=== PATIENT | male | born 1935 | race Caucasian/White ===

== ENCOUNTER → 2020-09-01 15:58 | Outpatient (CLI) | payer MEDICARE, SELFPAY ==
[2020-09-01 18:01] LABS: Amphetamine Urine VISTA NEGATIVE (<1000 ng/mL); Barbiturate Urine VISTA NEGATIVE (< 200 ng/mL); Benzodiazepine Urine VISTA NEGATIVE (< 200 ng/mL); Cocaine Urine VISTA NEGATIVE (< 300 ng/mL); Ecstacy Urine VISTA NEGATIVE (< 500 ng/mL); Methadone Urine VISTA NEGATIVE (< 300 ng/mL); PCP Urine VISTA NEGATIVE (< 25 ng/mL); THC Urine VISTA NEGATIVE (< 50 ng/mL); Vista UDS pH Range 6
== END ==
PROVIDERS: PCP Anesthesiology Pain Medicine; Referring Provider Anesthesiology Pain Medicine; Visit Provider Anesthesiology Pain Medicine
DX: F11.20 Opioid dependence, uncomplicated (principal)
CPT/HCPCS: 80307

== ENCOUNTER → 2021-11-27 | Outpatient (CLI) | payer MEDICARE, SELFPAY ==
[2021-11-27 08:45] LABS: Amphetamine Urine VISTA NEGATIVE (<1000 ng/mL); Barbiturate Urine VISTA NEGATIVE (< 200 ng/mL); Benzodiazepine Urine VISTA NEGATIVE (< 200 ng/mL); Cocaine Urine VISTA NEGATIVE (< 300 ng/mL); Ecstacy Urine VISTA NEGATIVE (< 500 ng/mL); Methadone Urine VISTA NEGATIVE (< 300 ng/mL); PCP Urine VISTA NEGATIVE (< 25 ng/mL); THC Urine VISTA NEGATIVE (< 50 ng/mL); Vista UDS pH Range 5
== END | disposition home or self-care (01) ==
LOC: LAB 08:09
PROVIDERS: Referring Provider Anesthesiology Pain Medicine; Visit Provider Anesthesiology Pain Medicine
DX: F11.20 Opioid dependence, uncomplicated (principal)
CPT/HCPCS: 80307

== ENCOUNTER 2022-01-04 11:46 | Emergency (ER) | payer MEDICARE, SELFPAY ==
[2022-01-04 11:47] VITALS: BP 131/82; PULSE 97; RESP 18; TEMP 36.8; O2SAT 93; BMI 25.9
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
== END 2022-01-04 14:07 | disposition home or self-care (01) ==
PROVIDERS: Emergency Provider Emergency Medicine; PCP Family Medicine; Visit Provider Emergency Medicine
DX: M54.9 Dorsalgia, unspecified (principal); G89.29 Other chronic pain; G47.00 Insomnia, unspecified; F17.220 Nicotine dependence, chewing tobacco, uncomplicated
CPT/HCPCS: 99284

== ENCOUNTER 2023-01-14 12:13 | Outpatient (CLI) | payer MEDICARE, SELFPAY ==
--- NOTE | 2023-01-14 12:35 | RAD_ITS ---
INDICATION: FALL EXAMINATION/TECHNIQUE: X-RAY - XR Sacrum/Coccyx Min 2 Views COMPARISON: No prior examinations are available for comparison. FINDINGS: SACRUM/COCCYX: No displaced fracture, destructive or sclerotic lesions. Note that overlapping bowel shadows may however obscure fine detail in the frontal view. Deformity of the right inferior pubic ramus likely due to old injury. SACRO-ILIAC JOINTS: The articular structures are essentially unremarkable. 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 RAD/Sacrum-Coccyx min 2 Views IMPRESSION: No evidence of acute fracture. Electronically Signed: Jakub Kam MD at 10:36 EDT ,
--- NOTE | 2023-01-14 12:35 | RAD_ITS ---
INDICATION: FALL EXAMINATION/TECHNIQUE: X-RAY - XR Spine Lumbar Min 4 Views COMPARISON: No prior examinations are available for comparison. FINDINGS: VERTEBRAE: Preserved vertebral body height. No evidence of acute compression fracture deformity. No spondylolisthesis. Straightening of the lumbar spine. Mild levoscoliosis. DISCS: Severe disc space narrowing at multiple levels extending from L1-L2 to L5-S1. Anterior degenerative osteophyte formations. Small posterior degenerative spurs. The pedicles appear intact. INCLUDED ABDOMEN: Atherosclerotic calcifications of the abdominal aorta. 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 RAD/L/S Spine Min 4 Views IMPRESSION: 1. Multilevel degenerative changes. 2. No evidence of acute fracture. Electronically Signed: Jakub Kam MD at 10:34 EDT ,
== END 2023-01-14 23:59 | disposition home or self-care (01) ==
LOC: RAD 12:16
PROVIDERS: PCP Family Medicine; Visit Provider Anesthesiology Pain Medicine
DX: M96.1 Postlaminectomy syndrome, not elsewhere classified (principal); W19.XXXA Unspecified fall, initial encounter
CPT/HCPCS: 72110; 72220

== ENCOUNTER 2024-10-15 11:13 | Observation (INO) | payer MEDICARE, SELFPAY ==
[2024-10-15] VITALS (7 sets, daily range): BP systolic 143–168; BP diastolic 77–100; PULSE 67–77; RESP 16–19; TEMP 36.4–36.8; O2SAT 95–99; BMI 29.0; BMI 28.0
--- NOTE | 2024-10-15 11:49 | EDS_ITS ---
HPI <BLAS Cuellar - Last Filed: 10/15/24 15:09> History of Present Illness Chief Complaint: General Illness Narrative Narrative: Patient resenting today after family had concerns that he would not be able to take care of himself while his is currently here in the ICU. She is his primary caregiver, he she was admitted to the hospital yesterday. His granddaughter felt that he should be placed for failure to thrive due to concerns that he would not be able to feed or take care of himself. Patient reports that he last ate yesterday afternoon but has not had time to eat yet today. He does not have any acute complaints. He is alert and oriented x 4. He reports that he is not wanting to be placed in a facility. [facility] <BLAS Cuellar - Last Filed: 10/15/24 15:09> [facility] Medical History History of seizure disorder Gout Drooping eyelid Home Medications ?Medication ?Instructions ?Recorded ?Last Taken ?Type hydroxyzine pamoate 25 mg capsule 50 mg (2 x 25 mg) PO QHS PRN 01/04/22 Unknown Rx insomnia #30 CAPSULES amitriptyline 25 mg tablet 25 mg PO DAILY 10/15/24 Unk nown History insulin glargine 100 unit/mL (3 unit subcut 10/15/24 U nknown History mL) subcutaneous pen (Lantus Solostar U-100 Insulin) levetiracetam 500 mg tablet 500 mg PO BID 10/15/24 Unk nown History oxycodone myristate 18 mg capsule 18 mg PO BID 5 Unknown History sprinkle extended release 12hr(DON'T CRUSH) (Xtampza ER) oxymetazoline 0.05 % nasal spray 2 spray intranasal BI D 10/15/24 Unknown History (12 Hour Nasal Relief [place]) rivaroxaban 20 mg tablet (Xarelto) 20 mg PO DAILY 09/17 08/11 Unknown History rosuvastatin 10 mg tablet 10 mg PO QHS 10/15/24 Unknow n History sitagliptin phosphate 100 mg 100 mg PO DAILY 10/15/24 Unknown History tablet (Januvia) tamsulosin 0.4 mg capsule 0.4 mg PO DAILY 10/15/24 Unk nown History Allergy/AdvReac Type Severity Reaction Status Date / Time Penicillins Allergy Mild Hives Verified 02/16/21 14:55 hydromorphone (From Dilaudid) Allergy Hallucinati Verified 02/16/21 14:55 ons ketorolac (From Toradol) Allergy Itching Verified 02/16/21 14:55 Family History Father Tuberculosis Surgical History History of back surgery Hx of laminectomy Social History household members: spouse housing: house Smoking Status: Never smoker Smokeless tobacco user: chewing tobacco alcohol intake: never what type of physical activity do you participate in: none do you feel safe at home: Yes ROS <BLAS Cuellar - Last Filed: 10/15/24 15:09> ROS ED Constitutional Constitutional ED: Denies chills, fever(s) or sweats Cardiovascular Cardiovascular: Denies chest pain Respiratory/Chest Respiratory/Chest: Denies cough or dyspnea Gastrointestinal Gastrointestinal: Denies abdominal pain, nausea or vomiting Genitourinary Genitourinary ED: Denies dysuria, hematuria or urinary urgency Musculoskeletal Musculoskeletal: Denies arthralgias or myalgias Integumentary Denies rash Neurologic Neurologic: Denies weakness EXAM <BLAS Cuellar - Last Filed: 10/15/24 15:09> Physical Exam Const Vital Signs: 10/15/24 11:14 10/15/24 11:19 10/15/24 13:25 Temperature 97.5 F L Temperature Source Oral Pulse Rate 67 73 Respiratory Rate 16 16 Respiratory Effort Normal Non-Labored Respiratory Pattern Normal Blood Pressure 162/87 H 156/78 H Blood Pressure Mean 112 104 Pulse Ox 95 97 Oxygen Delivery Method Room Air Room Air 10/15/24 14:55 Temperature 98.3 F Temperature Source Pulse Rate 74 Respiratory Rate 19 H Respiratory Effort Respiratory Pattern Blood Pressure 165/79 H Blood Pressure Mean 107 Pulse Ox 99 Oxygen Delivery Method Positive well nourished, well developed and no apparent distress General Appearance ED: well developed HEENT Reports normocephalic and head/scalp atraumatic Mouth ED: Yes moist mucous membranes normal Eyes PERRL and EOMs intact bilaterally Neck full ROM and supple Chest Wall inspection of chest normal Resp normal respiratory effort and clear to auscultation bilaterally Cardio regular rate and regular rhythm GI soft to palpation, non-tender, non-distended and no masses Back/Spine normal ROM and normal to inspection Extremity normal to inspection and full ROM Neuro oriented x3, CN's II-XII intact bilaterally, moves all extremities, no focal motor deficits and no sensory deficits noted Sensorium / Orientation: awake and alert Psych mental status grossly normal and thought process normal Skin no rashes or lesions noted and no wounds <Dr. Aamir Auguste DO - Last Filed: 10/15/24 15:44> Physical Exam Const Vital Signs: 10/15/24 11:14 10/15/24 11:19 10/15/24 13:25 Temperature 97.5 F L Temperature Source Oral Pulse Rate 67 73 Respiratory Rate 16 16 Respiratory Effort Normal Non-Labored Respiratory Pattern Normal Blood Pressure 162/87 H 156/78 H Blood Pressure Mean 112 104 Pulse Ox 95 97 Oxygen Delivery Method Room Air Room Air 10/15/24 14:55 Temperature 98.3 F Temperature Source Pulse Rate 74 Respiratory Rate 19 H Respiratory Effort Respiratory Pattern Blood Pressure 165/79 H Blood Pressure Mean 107 Pulse Ox 99 Oxygen Delivery Method [facility] <BLAS Cuellar - Last Filed: 10/15/24 15:09> [facility] Narrative Medical decision making narrative: Patient presenting today after his granddaughter had concerns for failure to thrive due to his and primary caregiver being admitted to the ICU yesterday. Granddaughter had concerns that he would not be able to administer his diabetes medication properly or cook for himself. He does not have any family nearby that he can depend on to help him. Patient currently has no acute complaints, clinically he is well-appearing, he has unremarkable vital signs. He reports that he is not wanting to be placed in a facility and wants to go home. Glucose was checked here, and is 124. Clinically he does not appear dehydrated. He does have capacity to make this decision, he is not confused. He does not want to be placed. I did get social work involved, they will try to set him up for resources to allow meals to come out to his house and a nurse to come out and help him with his medication until his can come back home. Patient does feel confident that he can make meals for himself and take his me dication. Given he does have the capacity to make this decision, he will be discharged home in stable condition. He understands that he can return at any time. Lab Data Attestation: I reviewed the patient's lab results. Labs: Laboratory Results - last 24 hr 10/15/24 13:19 POC Glucose 124 H <Dr. Aamir Auguste, DO - Last Filed: 10/15/24 15:44> [facility] History & Record Review Discussion w/independent historian: Patient and Family Lab Data Labs: Laboratory Results - last 24 hr 10/15/24 13:19 POC Glucose 124 H Management Discussion w/another healthcare provider: tin worker/Case management Treatment and Re-Evaluation :: I have personally performed a face to face assessment of the patient and have reviewed the ROBY Note. I performed a substantive portion of the visit including all aspects of the following. My raza findings include: History is 89-year-old male was brought to the emergency department by family out of concern for his wellbeing. Patient's was admitted yesterday into the intensive care unit. Family has concerns about his ability to care for himself at home without her as she was a main caregiver. They have concerns that perhaps he is abusing pain medication and whether or not he ate yesterday. Patient states that he cooked eggs and a salad yesterday. Family states that he did not answer the door when they came to get him this morning so they came in to his house and had a hard time waking him up. He said he used when he awoke. Patient states he has access to his medicines. He knows how to get refills. There was a report that [facility]PS was called for him yesterday. Exam is afebrile vital signs are stable. Patient appears well-kept. He is not in any distress. He is alert and oriented x 3. Medical Decison Making patient was in the emergency department and we had social work evaluate him and work intermittently with his family. On my examination I find that the patient does have capacity to make his own decisions and that these are consistent with his values at this time. He is able to communicate and choice of going home as compared to being admitted or placed and he can communicate this clearly to me. He does appear to balance what I am telling him as I expressed the concerns of his family and social work versus what he believes to be true. He is able to verbalize the benefits of going home versus being admitted or transferred. He does not wish to be admitted into the hospital or placed into a skilled or assisted living facility. He states that he is able to care for himself and has a home and does not understand why he would need to leave the home. He is worried that if he is admitted or transferred that he would not be able to see his . He states that he understands that if he gets to a point where he cannot care for himself that he can reach out to family or 911 and get help. I believe his choice is sound. He is able to tell me that 5 years ago he gave up driving because his vision was poor. He knows how to reach his primary care doctor. He does have family that can check on him. I would have social work reach out to [facility] as well as to explore a possible home health care option. Discharge Plan Triage Chief Complaint: General Illness ED Midlevel Provider: Kelsy Castle ED Provider: Aamir Auguste Dx/Rx/DC Orders Clinical Impression: History of diabetes mellitus, type II, Encounter for adult wellness visit Instructions: ED Diabetes- Overview Prescriptions: No Action hydroxyzine pamoate [hydroxyzine pamoate] 25 mg capsule 50 mg PO QHS PRN (Reason: insomnia) Qty: 30 0RF levetiracetam 500 mg tablet 500 mg PO BID oxymetazoline [12 Hour Nasal Relief [place]] 0.05 % spray,non-aerosol 2 spray intranasal BID Xtampza ER 18 mg cap,sprinkl,ER12hr(DONT CRUSH) 18 mg PO BID Rx Instructions: must administer with a meal/food Januvia 100 mg tablet 100 mg PO DAILY amitriptyline 25 mg tablet 25 mg PO DAILY insulin glargine [Lantus Solostar U-100 Insulin] 100 unit/mL (3 mL) insulin pen subcut Patient Comments: unknown dosage tamsulosin 0.4 mg capsule 0.4 mg PO DAILY Xarelto 20 mg tablet 20 mg PO DAILY Rx Instructions: must administer with evening meal rosuvastatin 10 mg tablet 10 mg PO QHS Primary Care Provider: Saulo Miranda Referrals: Saulo Miranda MD [Primary Care Provider] - 5-7 Days Activity Restrictions/Additional Instructions: Follow-up with your PCP. Return for any other concerns. Print Language: Kyrgyz Disposition Disposition: Home, Self Care Capacity <Dr. Aamir Auguste DO - Last Filed: 10/15/24 15:44> Capacity Assessment Tool Patient lacks Decision Making Capacity: unable to understand, reason and deliberate health related choices: No Risk to self and or others?: No Risk of leaving the patient care unit and or hospital?: Yes
[2024-10-15 13:38] LABS: Bedside Glucose 124 mg/dL (74-106)
[2024-10-15] MEDS: Oxymetazoline 0.05% 1 SPRAY SPRAY.BTL 2 SPRAY NASAL (14:46)
[2024-10-15] MEDS: Rivaroxaban 20 MG Tablet PO (14:47)
[2024-10-15] MEDS: LINAGLIPTIN 5 MG TABLET PO (14:48)
[2024-10-15] MEDS: levETIRAcetam 500 MG Tablet PO ×2 (14:49→21:56)
[2024-10-15] MEDS: Amitriptyline 25 MG Tablet PO (14:49)
[2024-10-15] MEDS: Tamsulosin HCl 0.4 MG Capsule PO (14:50)
--- NOTE | 2024-10-15 16:26 | CM.ED ---
Social work Reason for referral: family concerns with patient ability to care for self Referral source: parking meter mechanic Alyssa/Kelsy ODONNELL This SW was approached by parking meter mechanic Alyssa to speak with patient due to concerns of patient's ability to care for self at home alone while patient's , Radha, was admitted to [facility]. This SW read extensive notes in patient's 's chart that ED SW had written regarding patient yesterday prior to entering patient's room. This SW entered patient's room, introducing self and role at [facility]. Patient accepted SW visit, stating not necessarily understanding why patient was present in [facility] ED. Patient stated belief that patient was at [facility] ED to check patient's insulin levels due to patient's being admitted to acute yesterday. Patient stated knowing patient's son, Jim, living in [place] as well as patient's other son, Benedict, visiting almost every day. Patient states knowing patient's granddaughter, Ana, lives in [place]. Patient stated not doing much at home besides sleeping and watching TV and patient confirmed patient's having to help patient with checking patient's blood sugar, providing patient with insulin, and helping with everything. Patient stated not eating anything today, but having a salad and a fish sandwich yesterday. Patient reported adamantly that patient was not being admitted and was not going anywhere except home. Patient was able to state that today was Tuesday and that it was 2024. Patient stated the year when asked the month, though patient stated a few minutes later that it was September, as well as listed out all of the months of the year unprompted, only missing April. Patient was unable to share details of how patient can check patient's blood sugar, though patient stated knowing how to test it due to watching it a lot of times. Patient stated using a walker to get around the house and stated taking the medication that's left by the sink. Patient was unable to share with this SW what medications patient took. This SW asked for permission to call patient's granddaughter, Ana, due to Ana not being on patient's face sheet and patient gave permission. Called Ana ([phone]) and spoke with Ana regarding patient. Ana reported patient's son, Benedict, did not go out to the home last night or this morning to check patient's insulin levels as requested. 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 Ana stated going every Tuesday to patient's home and confirmed that patient had eaten a fish sandwich (from patient's son, Benedict) and a piece of pie yesterday. Ana stated patient has recent falls and there are 4 steps down in every direction so patient would be unable to exit the home safely in an emergency. Ana also stated patient will often take double pain medication and will also steal patient's 's medication. Ana arrived at [facility] ED with patient's home medication which was provided to Lynn CEJA to place in patient's chart. Ana spoke with patient prior to leaving to reportedly clean up some at patient's home. Prior to leaving, Ana stated needing to return to [place] this evening and not being able to care for patient if patient returned home. Patient's blood sugar was at 124 when Lynn CEJA checked. Patient remained adamant that patient was not agreeable to admission, even overnight. This SW reentered patient's room, stating concerns that SW and patient's granddaughter had due to patient's being admitted and likely transitioning to a SNF for rehab prior to returning home. Patient became upset, stating SW was wasting breath by expressing concerns with patient returning home. SW asked patient if patient knew consequences of not taking the right medication, taking too much of a medication, or not checking insulin correctly. Patient stated knowing this could be deadly and patient insisted on returning home regardless. Patient stated refusing to be admitted and denied any needs. Concerns were discussed with Dr. Auguste and Kelsy ODONNELL. Dr. Auguste completed a capacity assessment and talked with patient further with eventually determining that patient was cognitively able to make patient's own decisions. Patient showed ability to walk with a walker as well prior to the decision being made to discharge patient home. This SW called Ana to let Ana know of patient's discharge and initially had to leave a voicemail requesting a return call. Ana answered SW call a short time later and expressed further concerns with patient returning home alone. Ana stated patient would not be safe returning home and needed to show ED staff how patient could check own blood sugar. Ana was informed that this would not be possible due to not having patient's home system available for patient to show ED staff. Ana stated being almost back to [place] already and needing to see if patient's son, Benedict, could come cone picker patient. nAa stated inability to reach Benedict at all today. This SW called Benedict ([phone]) and introduced self and role at [facility]. Benedict stated not realizing patient was in [facility] ED and asked for details on patient's condition. Benedict stated that Benedict checked patient's blood sugar 3 times yesterday and it was fine. Benedict confirmed ability to check on patient due to living a mile and a half away from patient. Benedict also stated that Benedict had attempted to call Ana twice today and she never got back to me. This SW hung up with Benedict after confirming Benedict could come cone picker patient and called Ana back to confirm. Ana stated further frustration with the situation and stated having called [facility] Nursing Business Analytics Analyst Dang Hernandez in between SW calls. [facility] Nursing Business Analytics Analyst Dang talked with this SW who shared details above explaining why the decision was made to send patient home. This SW submitted [facility] [employer] [facility] referral online, called [facility] and sent email to Enrrique Farrar with referral, as well as called Sebastian at [facility] and left a secure voicemail requesting a return call. Enrrique with [facility] stated not taking referrals currently, but possibility of being able to help out soon. Due to case complexities, this SW informed SW power plant supervisor Laura APARICIO from the beginning of the situation. This SW had contact as well with acute SW Teresa Resendiz due to Teresa's conversation with Ana and patient's , Radha. Brook Coy, AIR REDUCTION EQUIPMENT OPERATOR, BASKET MENDER
--- NOTE | 2024-10-15 17:23 | ED.RN ---
This RN remote encoding operations supervisor received a call at 1553 from pts grand daughter Ana Wyatt. She states she is concerned about pt going home because he is not able to check his bood sugar and give himself insulin. She also stated that the pt's son (her father) is a recovering/not recovering drug addict and is not reliable to care for pt. This RN spoke with ED SW and ED physician and notified of grand daughter's concerns. ED physician states pt passed a capacity assessment. This RN spoke with pt. Encourage pt to be admitted due to time of day and not having the needed support at home to assist with his care. Pt is adamant about going home. This RN received a call from Ana's significant other, voicing his concern about pt being discharged at 1609. This RN spoke spoke with Laura Orona, who explained that pt passed capacity assessment and that pt can not be admitted against his will . An APS consult has been made. Call made to granddaughter at 1644 to update on situation. She states that the son has no intention of coming to get his father. He is on his way to [place] for a drug test and doesn't have the gas. She aslo stated that she has the only house raza and lives in [place]. She stated that she would try to find a automobile relocation engineer and come back an get the pt. She also stated that there are 4 steps to get into the house, which her father has to carry the pt up and down once a week for his pain management appt. She stated that she will not be able to get the pt into the house on her own. forest firefighter notified of the above info. forest firefighter spoke with pt and pt now agreeable to being admitted. Grand daughterAna notified that pt will be admitted.
[2024-10-15 18:09] LABS: Absolute Lymphocyte Count 1.28 X10^3/uL (0.83-4.51); Absolute Neutrophil Count 3.9 X10^3/uL (2.0-7.7); Basophil# 0.07 X10^3/uL; Basophil% 1.2 % (0-1); Eosinophil# 0.31 X10^3/uL; Eosinophils% 5.2 % (0-5); Hematocrit 39.9 % (40-54); Hemoglobin 12.6 g/dL (13.0-16.5); Lymphocyte # 1.28 X10^3/ul (0.83-4.51); Lymphocyte % 21.4 % (19-41); Mean Corp Hgb Conc 31.6 g/dL (32-36); Mean Corpuscular Hgb 30.6 pg (27.0-32.0); Mean Corpuscular Volume 96.8 fL (80-94); Mean Platelet Vol. 9.4 fl (6.2-12.0); Monocyte# 0.38 X10^3/uL; Monocyte% 6.4 % (0-10); NRBC Flagged by Analyzer 0 % (0-5); Neutrophil % 65.3 % (47-70); Platelet Count 195 K/mm3 (150-450); RBC Distribution Width CV 14.5 % (11.6-14.6); RBC Distribution Width SD 51.2 fl (35.1-43.9); Red Blood Count 4.12 M/mm3 (4.6-6.2)
--- NOTE | 2024-10-15 18:20 | HP.PCM.HOS_ITS ---
HPI - General General Date of Admission: 10/15/24 Date of Service: 10/15/24 Chief Complaint: Inability to care for self HPI Narrative LINO WEHELER, is a 89-year-old male history of chronic pain, diabetes, seizure disorder, BPH, chronic anticoagulation on Xarelto presented to [facility] ED 10/15/2024 due to concerns about him caring for himself at home.? Patient's was admitted to the ICU yesterday and she is primary caregiver, granddaughter went to his house today and was concerned about his ability to care for himself and had patient come to the ED.? Patient initially refused admission and was evaluated by ED physician felt to have capacity to make that decision, plan was for patient to go home however family very concerned about this and son refused to come pick patient up, ultimately patient was agreeable to admission for placement.? Labs ordered and hospitalist contacted for admission.? Patient evaluated at bedside and reports he feels fine and has no acute complaints. His last fall was about a week ago and reports he has had a little bit of swelling in his feet but no other new or acute changes, has some chronic shortness of breath which has not changed and no cough, during his fall he did not injure anything new or have any additional complaints, has chronic back pain from multiple lumbar surgeries which is at his baseline. [facility] Medical History History of seizure disorder Gout Drooping eyelid Home Medications ?Medication ?Instructions ?Recorded ?Last Taken ?Type hydroxyzine pamoate 25 mg capsule 50 mg (2 x 25 mg) PO QHS PRN 01/04/22 Unknown Rx insomnia #30 CAPSULES allopurinol 300 mg tablet 300 mg PO DAILY 10/15/24 Unk nown History amitriptyline 25 mg tablet 25 mg PO DAILY 10/15/24 Unk nown History insulin glargine 100 unit/mL (3 unit subcut 10/15/24 U nknown History mL) subcutaneous pen (Lantus Solostar U-100 Insulin) levetiracetam 500 mg tablet 500 mg PO BID 10/15/24 Unk nown History oxycodone myristate 18 mg capsule 18 mg PO BID 5 Unknown History sprinkle extended release 12hr(DON'T CRUSH) (Xtampza ER) oxymetazoline 0.05 % nasal spray 2 spray intranasal BI D 10/15/24 Unknown History (12 Hour Nasal Relief [place]) rivaroxaban 20 mg tablet (Xarelto) 20 mg PO DAILY 09/17 08/11 Unknown History rosuvastatin 10 mg tablet 10 mg PO QHS 10/15/24 Unknow n History sitagliptin phosphate 100 mg 100 mg PO DAILY 10/15/24 Unknown History tablet (Januvia) tamsulosin 0.4 mg capsule 0.4 mg PO DAILY 10/15/24 Unk nown History Allergy/AdvReac Type Severity Reaction Status Date / Time Penicillins Allergy Mild Hives Verified 02/16/21 14:55 hydromorphone (From Dilaudid) Allergy Hallucinati Verified 02/16/21 14:55 ons ketorolac (From Toradol) Allergy Itching Verified 02/16/21 14:55 Family History Father Tuberculosis Surgical History History of back surgery Hx of laminectomy Social History household members: spouse housing: house Smoking Status: Never smoker Smokeless tobacco user: chewing tobacco alcohol intake: never what type of physical activity do you participate in: none do you feel safe at home: Yes ROS ROS Narrative General: Denies fever/chills HENT: Denies headache, denies stuffy nose, denies sore throat EYES: Denies changes in vision Resp: Denies cough, some chronic shortness of breath not worse than usual Cardiac: Denies chest pain GI: Denies abdominal pain, denies changes in bowel, denies nausea/vomiting : Denies changes in urination Extremity: Possibly some slight swelling in his ankles MSK: Denies weakness, has some chronic back pain not worse than usual Neuro: Denies any numbness/tingling Heme: Denies any bleeding or bruising Skin: Denies rashes Psychiatric: No complaints voiced Vital Signs Vital Signs Vital Signs: 10/15/24 11:14 10/15/24 11:19 10/15/24 13:25 Temperature 97.5 F L Temperature Source Oral Pulse Rate 67 73 Respiratory Rate 16 16 Respiratory Effort Normal Non-Labored Respiratory Pattern Normal Blood Pressure 162/87 H 156/78 H Blood Pressure Mean 112 104 Pulse Ox 95 97 Oxygen Delivery Method Room Air Room Air 10/15/24 14:55 Temperature 98.3 F Temperature Source Pulse Rate 74 Respiratory Rate 19 H Respiratory Effort Respiratory Pattern Blood Pressure 165/79 H Blood Pressure Mean 107 Pulse Ox 99 Oxygen Delivery Method Weight Weight: 89.2 kg Body Mass Index (BMI) 29.0 Physical Exam Narrative General: Alert, no apparent distress HEENT: Atraumatic, normocephalic Eyes: Anicteric, normal conjunctiva, extraocular movements grossly intact Neck: Supple Respiratory: Clear to auscultation bilaterally, normal respiratory effort Cardiovascular: Regular rate and rhythm GI: Soft, nontender, nondistended Extremities: No significant lower extremity edema Musculoskeletal: Moving all extremities Neuro: No overt focal neurological deficits Skin: No rashes appreciated Psych: Overall cooperative Results Lab / Micro Data 10/15/24 18:00 10/15/24 18:00 Labs: Laboratory Results - last 24 hr 10/15/24 13:19: POC Glucose 124 H 10/15/24 18:00: WBC 6.0, RBC 4.12 L, Hgb 12.6 L, Hct 39.9 L, MCV 96.8 H, MCH 30.6, MCHC 31.6 L, RDW Std Deviation 51.2 H, RDW Coeff of May 14.5, Plt Count 195, MPV 9.4, Immature Gran % (Auto) 0.500, Neut % (Auto) 65.3, Lymph % (Auto) 21.4, [place] % (Auto) 6.4, Eos % (Auto) 5.2 H, Baso % (Auto) 1.2 H, Absolute Neuts (auto) 3.9, Absolute Lymphs (auto) 1.28, Nucleated RBC % 0 Assessment & Plan Assessment/Plan (1) Failure to thrive: PLAN: Plan # Failure to thrive/inability to care for self -Family very concerned about patient's ability to care for self -PT/OT -Case management and social work consults # Chronic pain secondary to lumbar stenosis with multiple lumbar surgeries -Continue patient's home regimen while admitted #Type 2 diabetes mellitus -Glucose checks and sliding scale insulin -Unclear how much long-acting insulin patient is supposed to be on, patient very poor historian -Will have glucose checks and sliding scale insulin all awaiting final med rec update, if patient persistently elevated can add scheduled long-acting empirically, [id number] glucose only 124 in the ED #Chronic BPH with obstruction -Continue home medications #Seizure disorder -Presently maintained on Keppra -Continue home regimen #Chronic anticoagulation -Unclear indication, awaiting final med reconciliation, was continued as a home med in the ED so we will continue #Gout -Continue home allopurinol #DVT ppx: Chronically anticoagulated on Xarelto Gemma Nava MD Charges/Coding Visit Charges Inpatient E&M: 95076 Init Hosp L1
[2024-10-15 18:28] LABS: Anion Gap 22 (5-15); BUN 11 mg/dL (4-19); BUN/Creat Ratio 14.7 RATIO (10-20); Carbon Dioxide 12.7 mmol/L (21.0-32.0); Chloride 103 mmol/L (98-108); Creatinine, Serum 0.74 mg/dL (0.70-1.20); EST Glomerular Filtration Rate 86 (>60); Estimated Creatinine Clearance 69.15 ml/min (50-250); Glucose 125 mg/dL (70-99); Sodium Level 138 mmol/L (133-145)
[2024-10-15 19:57] LABS: Lactic Acid 1.7 mmol/L (0.0-2.0)
[2024-10-15] MEDS: Glucerna Shake 120 ML LIQUID PO (21:55)
[2024-10-15] MEDS: 0.9% Saline Lock 10 ML Syringe IV (21:55)
[2024-10-15] MEDS: Senna/Docusate Sodium 1 Tablet 2 TABLET PO (21:56)
[2024-10-15] MEDS: Atorvastatin Calcium 20 MG Tablet PO (21:56)
[2024-10-15] MEDS: oxyCODONE HCl Cr 10 MG Tablet 20 MG PO (21:57)
[2024-10-15 22:08] LABS: Bedside Glucose 118 mg/dL (74-106)
[2024-10-16 06:24] VITALS: BP 122/72; PULSE 77; RESP 18; TEMP 36.4; O2SAT 96
[2024-10-16 07:22] LABS: Absolute Lymphocyte Count 1.61 X10^3/uL (0.83-4.51); Basophil# 0.06 X10^3/uL; Basophil% 0.8 % (0-1); Eosinophils% 5.3 % (0-5); Hematocrit 38.9 % (40-54); Hemoglobin 12.5 g/dL (13.0-16.5); Lymphocyte # 1.61 X10^3/ul (0.83-4.51); Lymphocyte % 21.2 % (19-41); Mean Corp Hgb Conc 32.1 g/dL (32-36); Mean Corpuscular Hgb 30.6 pg (27.0-32.0); Mean Corpuscular Volume 95.3 fL (80-94); Mean Platelet Vol. 9.6 fl (6.2-12.0); Monocyte# 0.53 X10^3/uL; NRBC Flagged by Analyzer 0 % (0-5); Neutrophil # 4.98 X10^3/uL (2.7-7.7); Neutrophil % 65.3 % (47-70); Platelet Count 235 K/mm3 (150-450); RBC Distribution Width CV 14.6 % (11.6-14.6); RBC Distribution Width SD 49.9 fl (35.1-43.9); Red Blood Count 4.08 M/mm3 (4.6-6.2); White Blood Count 7.6 K/mm3 (4.4-11.0)
[2024-10-16 08:16] VITALS: BP 121/77; PULSE 100; RESP 18; TEMP 36.3; O2SAT 97
[2024-10-16 08:18] LABS: Anion Gap 12 (5-15); BUN 13 mg/dL (4-19); BUN/Creat Ratio 16.7 RATIO (10-20); Calcium,Total 9.2 mg/dL (7.6-11.0); Carbon Dioxide 22.8 mmol/L (21.0-32.0); Chloride 104 mmol/L (98-108); Creatinine, Serum 0.76 mg/dL (0.70-1.20); EST Glomerular Filtration Rate 86 (>60); Estimated Creatinine Clearance 68.12 ml/min (50-250); Glucose 109 mg/dL (70-99); Potassium 4.2 mmol/L (3.3-5.1); Sodium Level 139 mmol/L (133-145)
[2024-10-16 08:25] VITALS: O2SAT 95
[2024-10-16] MEDS: Rivaroxaban 20 MG Tablet PO (08:25)
[2024-10-16] MEDS: Tamsulosin HCl 0.4 MG Capsule PO (08:26)
[2024-10-16] MEDS: Allopurinol 300 MG Tablet PO (08:26)
[2024-10-16] MEDS: LINAGLIPTIN 5 MG TABLET PO (08:26)
[2024-10-16] MEDS: Senna/Docusate Sodium 1 Tablet 2 TABLET PO ×2 (08:26→22:29)
[2024-10-16] MEDS: levETIRAcetam 500 MG Tablet PO ×2 (08:26→22:29)
[2024-10-16] MEDS: Amitriptyline 25 MG Tablet PO (08:26)
[2024-10-16] MEDS: Menthol/Lanolin/Calamine/Znox 113 GM Tube 1 APPLIC TOPICAL ×2 (08:26→22:30)
[2024-10-16] MEDS: oxyCODONE HCl Cr 10 MG Tablet 20 MG PO (09:43)
[2024-10-16] MEDS: Glucerna Shake 120 ML LIQUID PO (09:43)
[2024-10-16] MEDS: 0.9% Saline Lock 10 ML Syringe IV (09:47)
--- NOTE | 2024-10-16 09:57 | PCM.PN.HOSP ---
Objective Data Objective Data Vital Signs: Vital Signs Temp Pulse Resp BP Pulse Ox O2 Del Method 97.4 F L 100 18 121/77 H 97 Room Air 10/16/24 08:16 10/16/24 08:16 10/16/24 08:16 10/16/24 08:16 10/16/24 08:16 10/16/24 08:16 Oxygen Delivery Method Room Air Weight: 190 lb 4.143 oz Body Mass Index (BMI) 28.0 Lab / Micro Data 10/16/24 06:56 10/16/24 06:56 Labs: Laboratory Results - last 24 hr 10/15/24 13:19: POC Glucose 124 H 10/15/24 18:00: WBC 6.0, RBC 4.12 L, Hgb 12.6 L, Hct 39.9 L, MCV 96.8 H, MCH 30.6, MCHC 31.6 L, RDW Std Deviation 51.2 H, RDW Coeff of May 14.5, Plt Count 195, MPV 9.4, Immature Gran % (Auto) 0.500, Neut % (Auto) 65.3, Lymph % (Auto) 21.4, [place] % (Auto) 6.4, Eos % (Auto) 5.2 H, Baso % (Auto) 1.2 H, Absolute Neuts (auto) 3.9, Absolute Lymphs (auto) 1.28, Nucleated RBC % 0, Sodium 138, Potassium 4.0, Chloride 103, Carbon Dioxide 12.7 L, Anion Gap 22 H, BUN 11, Creatinine 0.74, Estim Creat Clear Calc 69.15, Est GFR (MDRD) Non-Af 86, BUN/Creatinine Ratio 14.7, Glucose 125 H, Calcium 9.0 10/15/24 18:41: Lactic Acid 1.7 10/15/24 21:47: POC Glucose 118 H 10/16/24 06:56: WBC 7.6, RBC 4.08 L, Hgb 12.5 L, Hct 38.9 L, MCV 95.3 H, MCH 30.6, MCHC 32.1, RDW Std Deviation 49.9 H, RDW Coeff of May 14.6, Plt Count 235, MPV 9.6, Immature Gran % (Auto) 0.400, Neut % (Auto) 65.3, Lymph % (Auto) 21.2, [place] % (Auto) 7.0, Eos % (Auto) 5.3 H, Baso % (Auto) 0.8, Absolute Neuts (auto) 5.0, Absolute Lymphs (auto) 1.61, Nucleated RBC % 0, Sodium 139, Potassium 4.2, Chloride 104, Carbon Dioxide 22.8, Anion Gap 12, BUN 13, Creatinine 0.76, Estim Creat Clear Calc 68.12, Est GFR (MDRD) Non-Af 86, BUN/Creatinine Ratio 16.7, Glucose 109 H, Calcium 9.2, TSH 1.390 Physical Exam Narrative Seen and examined. Patient has difficulty in ambulation, recurrent fall 2 falls in last 1 week. Unsteady gait and poor balance and equilibrium Physical exam General: Alert, Oriented x3, Cooperative HEENT: Atraumatic, PERRLA, EOMI, Normocephalic Oral: No Gingival or Mucosal Lesions/ Ulcerations Neck: Supple, No JVD, Negative Carotid Bruits Chest wall/Lungs: Air entry diminished in bilateral lung bases. No crepitation/rhonchi Cardiovascular: Regular rate, Regular Rhythm, Normal S1, Normal S2, systolic murmur Abdomen: Bowel Sounds Present, Soft, Non Tender, Non-Distended : No dysuria. No renal angle tenderness. No suprapubic tenderness. Extremities: No edema, Capillary Refill Less than 3 Seconds Skin: No rashes, No breakdown Musculoskeletal: No Tenderness to Palpation of Joints or Extremities. Muscle power 4/5 at major joints. ROM restricted knee joints. Neurological: Cranial nerves II-XII grossly intact, DTR 2+/4. No acute focal neurological deficit. Psych/Mental Status: Normal Affect, Appropriate. Assessment & Plan Assessment/Plan (1) Failure to thrive: PLAN: Plan 89-year-old gentleman was admitted because of not able to take care of himself, recurrent fall, decreased equilibrium and steady gait. # Failure to thrive/inability to care for self -Family very concerned about patient's ability to care for self -PT/OT -Case management and social work consults 10/16: Patient will need correction and subacute rehab. # Chronic pain secondary to lumbar stenosis with multiple lumbar surgeries -Continue patient's home regimen while admitted #Type 2 diabetes mellitus -Glucose was 124 in ED. Glucose 109 BMP. Accu-Cheks every 6 hours. 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 Charges/Coding Visit Charges Inpatient E&M: 17860 Subs Hosp L2
[2024-10-16 11:24] LABS: Bedside Glucose 149 mg/dL (74-106)
--- NOTE | 2024-10-16 11:29 | CASEMGMT ---
Addendum entered by Teresa Resendiz 10/16/24 11:53: Social Work Referrals will be sent today. Please note, SW did not give family a list from [facility] as they already know what facilities they would prefer. GELY Baker Original Note: W called pt's granddaughter Ana to coordinate intermediate choices. She would like referrals sent to 1. [facility], 2. [facility], 3. [facility] and 4. [facility]. These are not necessarily the order of preference as she still plans to go see the facilities. SW will make referrals when appropriate. We are also coordinating to try to get pt and to same facility. Additionally, SW asked about history of seizures. As per Ana, pt had one surgery about 20 years ago, has not had one since. This should not trigger the PASRR for a further review. GELY Baker
[2024-10-16 11:39] LABS: Bedside Glucose 106 mg/dL (74-106)
--- NOTE | 2024-10-16 13:56 | CASEMGMT ---
Addendum entered by Teresa Resendiz 10/16/24 15:25: Social Work Pt will be able to visit w/his while here. SW let pt know, explained he needs to speak w/ about the discharge plan. RN aware of plan to let pt visit . As per RN, it took pt four tries to get up out of the chair, and tried to sit on the toilet before he was fully lowered. SW called pt's granddaughter Ana to update her. SW let her know pt was accepted into [facility], we have not heard back from [facility] or [facility]. [facility] is her first choice, she plans to still see [facility]. She states [facility] is a definite no. [facility] would be a possibility, but she still wants to see [facility], and would prefer [facility] over [facility]. SW then explained to granddaughter Ana that pt is at this point refusing SNF, saying he needs to go home, mentioned concerns about someone breaking into the home. SW also explained he is telling SW that he can take care of himself, can manage his medications and meals. SW explained also that pt had trouble getting up, and that he tried to sit on the toilet before he was fully lowered. She states that there was a break in [address]. She states she asked the police to drive by his home more often, and that the police know to not let son Benedict into the home. She asked SW to let pt know. She also states Benedict is going to come see pt today. He will speak w/pt about going somewhere for rehab. SW will continue to follow. GELY aBker Original Note: Social Work SW met w/pt to review the discharge plan. SW explained had been speaking w/his granddaughter Ana and it was this SW's understanding that pt and would be going to a senior living facility together. Pt adamant he is not going anywhere but home. Pt repeatedly informed SW that he lives in a brand new house, and is worried someone is going to tear up the house. Pt states there have been break ins in their neighborhood by people from [facility]. He states the only reason his house has not been broken into is because he is there all the time. But now with the lights off and he not being there, he is worried someone is going to break in. Pt states he agreed only to stay here overnight and nothing further. He states the people here told him he just had to stay overnight and that was it. SW asked how he would get home, pt was unclear on this. SW inquired w/pt if he can get himself food and manage his diabetes, as it is this SW's understanding his helps him w/both meals and managing meds, he is not able. Pt states no, he can do it himself, he knows how to manage his diabetes and has known how for two or three years. Pt then asked to see his who is also in the hospital, states he is not making any decisions until he can speak to his . SW will speak w/the bag cutter to see if it would be okay for pt to go down to visit his . SW will continue to follow. GELY Baker
--- NOTE | 2024-10-16 14:11 | CASEMGMT ---
Addendum entered by Inge El 10/16/24 15:57: [facility] declined d/t no beds. [facility], [facility] and [facility] accepted. SW updated. Inge El DC Planning Asst. Original Note: Discharge Planning Referral sent to [facility] , [facility], and [facility]. Inge El DC Planning Asst.
[2024-10-16 14:12] VITALS: BP 130/97; PULSE 84; RESP 16; TEMP 36.6; O2SAT 96
--- NOTE | 2024-10-16 15:12 | CASEMGMT ---
Met with patient to complete WHITEHEAD form. WHITEHEAD form explained to patient who voiced understanding and signed form. Original form placed in pt?s chart and copy provided to patient. Inge El, Discharge Planning Asst
--- NOTE | 2024-10-16 16:11 | CASEMGMT ---
Social Work Pt [facility] Pt not accepted into [facility] as they have no beds. SW spoke w/RECORDS ANALYSIS MANAGER, she took pt to see his , he continued to state he is going home, told him he cannot go home. SW called granddaughter, updated her on the above information. SW let her know [place] will follow up w/her tomorrow for which facility they would like to pursue. SW asked her to ask pt's son to really try to talk to pt about going somewhere for rehab when he comes to visit, she will let him know. SW spoke w/pt again. SW asked how his is, he states she is a little better. SW explained will have SW follow up w/him tomorrow, and just reiterated that his family, the staff here and the physicians here are all in agreement that he cannot take care of himself to go home. SW will follow up tomorrow. GELY Baker
[2024-10-16 16:59] LABS: Bedside Glucose 160 mg/dL (74-106)
[2024-10-16] MEDS: Insulin Lispro 100 UNIT/ML INSULN.PEN SC (17:01)
[2024-10-16 18:09] VITALS: BP 102/56; PULSE 93; RESP 16; TEMP 36.4; O2SAT 98
--- NOTE | 2024-10-16 18:32 | CM.ED ---
Social Work SW received a phone call from Luis Alfredo with APS regarding referral for patient. Luis Alfredo stated she currently had a case open for him due to inability to manage his medications, inability to care for self including the inability to manage his diabetes, lack of support in the home and potentially taking wifes medications. CHANI confirmed concerns were still valid, no further issues to report. Jody Lyles, CATERING DIRECTOR, SUPERVISOR PLASMA
[2024-10-16] MEDS: Atorvastatin Calcium 20 MG Tablet PO (22:30)
[2024-10-16] MEDS: oxyCODONE HCl Cr 10 MG Tablet PO (22:31)
[2024-10-16] MEDS: Polyethylene Glycol 3350 17 GM PACKET PO (22:45)
[2024-10-16 23:23] LABS: Bedside Glucose 129 mg/dL (74-106)
[2024-10-17] VITALS: BP 113/65; PULSE 90; RESP 16; TEMP 36.5; O2SAT 97
[2024-10-17 06:00] VITALS: BP 98/84; PULSE 97; RESP 16; TEMP 36.7; O2SAT 93
[2024-10-17 07:12] LABS: Bedside Glucose 137 mg/dL (74-106)
[2024-10-17 08:44] VITALS: BP 103/63; PULSE 96; RESP 16; TEMP 37.1; O2SAT 95
--- NOTE | 2024-10-17 08:46 | PN.HOSP_ITS ---
Objective Data Objective Data Vital Signs: Vital Signs Temp Pulse Resp BP Pulse Ox O2 Del Method 98.7 F 96 16 103/63 95 Room Air 10/17/24 08:44 10/17/24 08:44 10/17/24 08:44 10/17/24 08:44 10/17/24 08:44 10/17/24 08:44 Oxygen Delivery Method Room Air Weight: 190 lb 4.143 oz Body Mass Index (BMI) 28.0 Intake & Output: Intake and Output for Last 24 Hours 10/15/24 10/16/24 10/17/24 23:59 23:59 23:59 Intake Total 460 / 460 Balance 460 / 460 Lab / Micro Data 10/16/24 06:56 10/16/24 06:56 Labs: Laboratory Results - last 24 hr 10/16/24 06:31: POC Glucose 106 10/16/24 11:06: POC Glucose 149 H 10/16/24 16:42: POC Glucose 160 H 10/16/24 22:41: POC Glucose 129 H 10/17/24 06:33: POC Glucose 137 H Physical Exam Narrative Seen and examined. No acute issues. Patient refusing to go to SNF. Patient has difficulty in ambulation, recurrent fall 2 falls in last 1 week. Unsteady gait and poor balance and equilibrium Physical exam General: Alert, Oriented x3, Cooperative HEENT: Atraumatic, PERRLA, EOMI, Normocephalic Oral: No Gingival or Mucosal Lesions/ Ulcerations Neck: Supple, No JVD, Negative Carotid Bruits Chest wall/Lungs: Air entry diminished in bilateral lung bases. No crepitation/rhonchi Cardiovascular: Regular rate, Regular Rhythm, Normal S1, Normal S2, systolic murmur Abdomen: Bowel Sounds Present, Soft, Non Tender, Non-Distended : No dysuria. No renal angle tenderness. No suprapubic tenderness. Extremities: No edema, Capillary Refill Less than 3 Seconds Skin: No rashes, No breakdown Musculoskeletal: No Tenderness to Palpation of Joints or Extremities. Muscle power 4/5 at major joints. ROM restricted knee joints. Neurological: Cranial nerves II-XII grossly intact, DTR 2+/4. No acute focal neurological deficit. Psych/Mental Status: Normal Affect, Appropriate. Assessment & Plan Assessment/Plan (1) Failure to thrive: PLAN: Plan 89-year-old gentleman was admitted because of not able to take care of himself, recurrent fall, decreased equilibrium and steady gait. # Failure to thrive/inability to care for self -Family very concerned about patient's ability to care for self -PT/OT -Case management and social work consults 10/16: Patient will need long-term and subacute rehab. 10/17: Patient refusing going to SNF placement. [facility] social service liaison working on it but probably will call tomorrow with home health aide # Chronic pain secondary to lumbar stenosis with multiple lumbar surgeries -Continue patient's home regimen while admitted #Type 2 diabetes mellitus -Glucose was 124 in ED. Glucose 109 BMP. Accu-Cheks every 6 hours. 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
[2024-10-17] MEDS: Menthol/Lanolin/Calamine/Znox 113 GM Tube 1 APPLIC TOPICAL ×2 (08:48→22:17)
[2024-10-17] MEDS: Allopurinol 300 MG Tablet PO (08:48)
[2024-10-17] MEDS: Amitriptyline 25 MG Tablet PO (08:51)
[2024-10-17] MEDS: Tamsulosin HCl 0.4 MG Capsule PO (08:51)
[2024-10-17] MEDS: levETIRAcetam 500 MG Tablet PO ×2 (08:51→22:07)
[2024-10-17] MEDS: Senna/Docusate Sodium 1 Tablet 2 TABLET PO ×2 (08:52→22:09)
[2024-10-17] MEDS: Rivaroxaban 20 MG Tablet PO (08:52)
[2024-10-17] MEDS: LINAGLIPTIN 5 MG TABLET PO (08:52)
[2024-10-17] MEDS: oxyCODONE HCl Cr 10 MG Tablet PO ×2 (09:19→22:17)
[2024-10-17 11:55] LABS: Bedside Glucose 123 mg/dL (74-106)
--- NOTE | 2024-10-17 12:55 | CASEMGMT ---
Social Work- SW met with pt to discuss discharge plans. Pt reports that he is angry with his granddaughter for having him come to the hospital; stating that he wants to get out of this place and wants his transferred to [facility]. Pt feels that granddaughter lied to pt, as others have been doing during his stay here. Pt cited an example that a nurse offered to take him to see his , but staff didn't until he came upstairs to the floor. Pt reported that family has also been lying to pt, but could not provide examples. Pt shared that his son Jim is supposed to come in for a meeting this morning, but he is not making decisions for pt either per pt. SW completed BIMS assessment; pt scored 15/15. SW remains available to follow for discharge planning needs and to meet with son. IZZY Piña
--- NOTE | 2024-10-17 16:27 | CASEMGMT ---
Discharge Planning Pt has decided to return home. All referrals cancelled. Inge El DC Planning Asst.
--- NOTE | 2024-10-17 16:37 | CASEMGMT ---
RN CM made aware that the pt is adamantly refusing recommended placement and wants to DC home. RN CM to pt room at this time. Pt A&Ox4 and is sitting up in the chair. Pt states that he plans to DC home and refuses SNF needs. Pt states that he does not have a ride home. Per therapy notes, pt may qualify for the [facility]. However, the transportation van/ services closed at 4. Pt made aware that transport will not be able to get set up until tomorrow at the earliest. Pt states understanding but appears frustrated and states that his GD lied to him about driving him home. See CHANI notes. Medical alert system information has been provided by . At this time, the pt states that he is agreeable to HHC and states that he does not care what agency accepts him. Inge [place] harpoon engagement planning operator, making referrals. CM to follow. This RN CM also inquired about the pt new Rxs. Pt states that he does not know how he will get the new prescriptions. This RN CM inquired if the pt would like to use [facility]. Pt agreeable. Dr tSroud notified of the above. Pt also states to this RN CM that he will be able to manage his DM independently at home. Pt denies further needs at this time. Care Management to follow. Tentative plan: Home with potential HHC as the pt refuses recommended SNF stay. Follow for transportation and Rx needs.
--- NOTE | 2024-10-17 16:39 | CASEMGMT ---
Addendum entered by Inge El 10/18/24 08:19: [facility] accepted. [facility] and [facility] declined. Referral cancelled for [facility], [facility], and . Inge El DC Planning Asst. Original Note: Discharge Planning HH referrals sent to [facility], [facility], [facility], [facility], [facility], [facility], and . Inge El DC Planning Asst.
[2024-10-17] MEDS: Insulin Lispro 100 UNIT/ML INSULN.PEN SC (16:53)
[2024-10-17 17:00] VITALS: BP 110/67; PULSE 102; RESP 14; TEMP 37.3; O2SAT 96
--- NOTE | 2024-10-17 17:50 | CASEMGMT ---
Social Work- SW met with pt to discuss concerns with pt discharge home. Pt reports that he does not have medical alert or a cell phone. Pt reports that he has had six falls in five years and does not feel that he is a fall risk. Pt reports that he has a fridge and pantry full of food. Pt reports that there is a woman on next street that could help him cook, although he has not confirmed this with her. Pt reports that he would not cook for himself. Previous [facility] referral completed and pending. Pt denies needing assistance with medication, stating I know how to take my medication- I don't need help. Pt was receptive to [facility] services at discharge. Pt reports that he and his had nurses coming in from [facility] prior to admittance. Pt reports that he will not discharge to SNF. SW met with pt to discuss discharge planning with pt granddaughter who reports that she has concerns regarding pt returning home. Ana reports that pt has never handled his own medication, has not cooked his own food for over ten years, is unable to perform self-care, and is unsteady. Ana reports that she is aware that pt is strong-willed and reports that she has tried to speak with him as well about SNF placement. SW provided resources for medical alert, [facility], [facility], and private duty caregivers. Ana reports that her family has not been willing to stay with pt for assistance with care at this time and pt would not be able to get into her home, as well as reporting that she works full-time and would not be around in the event of a fall. SW provided support and education on discharge timeline. Pt granddaughter will meet with SW in pt room later this afternoon. SW met with pt again to discuss concerns and call pt son, Christo, to discuss discharge planning. Christo reports that pt will not listen to him and that there is nothing he can say that will change pt mind. Christo reports that he has concerns as well with pt going home, but has his own health issues and limitations that prevent him from being able to care for pt. Christo and his Natalie both share that pt often is noncompliant with his and that pt has had to call the police before as he has gotten mean with pt before. Pt reports that SW could call the mayor and I still won't go anywhere. Christo again reiterates Ana's report that pt is unable to perform toilet hygiene, self care, medication management, or food preparation. SW provided education that if family is unwilling to transport pt home due to safety concerns, pt would need to take the hospital van home. Pt insists that [facility] will transport pt home, as they always bring me to the hospital. SW provided education that EMS will not transport for non-emergency trips which include transports from the hospital home. Pt insisted that EMS would transport repeatedly while SW continued to provide education and options for transport. Pt did report understanding after lengthy discussion that EMS could not transport home. Christo asked SW to keep updated on pt discharge. CHANI met with pt granddaughter Ana to meet with pt and discuss SNF. Pt remains insistent that he will not discharge to SNF and that he is able to care for self at home. Ana will discuss the need for pt son Benedict to meet pt at home tomorrow when pt is discharged, as Ana has the only house raza and feels pt will need assistance into the home despite pt being able to complete 4 steps with therapy. Ana requests notification of transport time at discharge. CHANI collaborated with bedside nurse to request teach back for pt insulin. Pt was too weak and shaky to uncap top, screw items together, place strip in glucometer, and was unable to read the dial per bedside nurse. Pt reports that he will call 9-1-1 if he is unable to give himself insulin. Pt insists that he will not discharge to SNF. CHANI introduced idea of TCU, specifically a [facility] T[facility] as pt preference is [facility] facilities. Pt reports that he will consider. CHANI collaborated with SW apple picking supervisor. SW to follow up with pt tomorrow on discharge planning. IZZY Piña
[2024-10-17 18:18] LABS: Bedside Glucose 172 mg/dL (74-106)
[2024-10-17] MEDS: Atorvastatin Calcium 20 MG Tablet PO (22:07)
[2024-10-17] MEDS: Polyethylene Glycol 3350 17 GM PACKET PO (22:08)
[2024-10-17 23:00] VITALS: BP 103/60; PULSE 92; RESP 16; TEMP 36.4; O2SAT 95
[2024-10-18] VITALS: RESP 16
[2024-10-18 00:11] LABS: Bedside Glucose 133 mg/dL (74-106)
[2024-10-18 05:00] VITALS: BP 112/62; PULSE 89; RESP 16; TEMP 36.8; O2SAT 95
[2024-10-18 07:21] LABS: Bedside Glucose 129 mg/dL (74-106)
[2024-10-18] MEDS: Menthol/Lanolin/Calamine/Znox 113 GM Tube 1 APPLIC TOPICAL (09:03)
[2024-10-18] MEDS: Tamsulosin HCl 0.4 MG Capsule PO (09:04)
[2024-10-18] MEDS: levETIRAcetam 500 MG Tablet PO (09:04)
--- NOTE | 2024-10-18 09:04 | TREXTCAR_ITS ---
Diet Diet Order/Speech Therapy: 10/16/24 15:59 Diet: Carbohydrate Controlled Food consistency:: Easy to Chew Liquid Consistency:: Regular/Thin Type of Dietary Supplement:: 120mL Glucerna w/ meals Diet Comments: soft foods only DC O2, CPAP, BIPAP needs Home O2 Discharge instructions: No Problem/Diagnosis (1) Failure to thrive: Status: Acute Plan 89-year-old gentleman was admitted because of not able to take care of himself, recurrent fall, decreased equilibrium and steady gait. # Failure to thrive/inability to care for self -Family very concerned about patient's ability to care for self -PT/OT -Case management and social work consults 10/16: Patient will need group home and subacute rehab. # Chronic pain secondary to lumbar stenosis with multiple lumbar surgeries -Continue patient's home regimen while admitted #Type 2 diabetes mellitus -Glucose was 124 in ED. Glucose 109 BMP. Accu-Cheks every 6 hours. 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 Allergies/Procedures Done in Hospital Allergies Penicillins Allergy (Mild, Verified 02/16/21 14:55) Hives hydromorphone (From Dilaudid) Allergy (Verified 02/16/21 14:55) Hallucinations ketorolac (From Toradol) Allergy (Verified 02/16/21 14:55) Itching Type of Care/Length of Stay Estimated LOS: Convalescent Care Less Than 30 days Type of Care Needed: Skilled Rehab Potential: Good Prognosis: Good Additional Orders/Day of Discharge Day of Discharge: 10/17/24 Dietary and Speech Recommendations Dietitian Recommendations/Changes: Will continue carbohydrate controlled diet with soft/ganj-yt-ezip foods. Will change ONS to 120mL glucerna shake 3 times per day w/ meals. Will d/c glucerna shake w/ medpass. Discharge Plan Admission Admit Date/Time: 10/15/24 18:29 Attending Provider: Sriram Stroud Primary Care Provider: Saulo Miranda Consulting Providers: Nava,Gemma Instructions Patient Instructions: ED Diabetes- Overview Additional Instructions / Restrictions: Follow-up with your PCP. Return for any other concerns. Discharge Orders/Prescriptions Prescriptions: New atorvastatin 20 mg Tablet 20 mg PO QHS Qty: 0 0RF sennosides-docusate sodium [Stimulant Laxative Plus] 8.6-50 mg Tablet 2 tab PO BID Qty: 0 0RF insulin lispro [Humalog KwikPen Insulin] 100 unit/mL Insulin Pen See Protocol subcut ACHS Qty: 0 0RF Protocol: 3. Sliding Scale Insulin Med Dosing Condition: 150-189 mg/dl = 1 unit Condition: 190-229 mg/dl = 2 units Condition: 230-269 mg/dl = 3 units Condition: 270-309 mg/dl = 4 units Condition: 310-349 mg/dl = 5 units Condition: 350-399 mg/dl = 6 units Condition: 400-449 mg/dl = 7 units Condition: Greater than 449 call physician Protocol Text: Suggested for: - Patients on Total Daily Insulin Dose of 37-55 units - Obese, infected, or steroid patients MEDIUM DOSING ALGORITHIM Continued levetiracetam 500 mg tablet 500 mg PO BID Xtampza ER 18 mg cap,sprinkl,ER12hr(DONT CRUSH) 18 mg PO BID Rx Instructions: must administer with a meal/food Januvia 100 mg tablet 100 mg PO DAILY amitriptyline 25 mg tablet 25 mg PO DAILY tamsulosin 0.4 mg capsule 0.4 mg PO DAILY Xarelto 20 mg tablet 20 mg PO DAILY Rx Instructions: must administer with evening meal allopurinol 300 mg tablet 300 mg PO DAILY Changed hydroxyzine pamoate 25 mg capsule 25 mg PO QHS PRN (Reason: insomnia) Qty: 30 0RF oxymetazoline [12 Hour Nasal Relief [place]] 0.05 % spray,non-aerosol 2 spray intranasal BID PRN (Reason: Nasal congestion) 30 Days Qty: 0 0RF Held insulin glargine [Lantus Solostar U-100 Insulin] 100 unit/mL (3 mL) insulin pen subcut Hold Instructions: Hold if glucose less than 130 mg/dl Patient Comments: unknown dosage Discontinued rosuvastatin 10 mg tablet 10 mg PO QHS Referrals / Follow Up: Saulo Miranda MD [Primary Care Provider] - Saulo Miranda MD [[facility]] - 5-7 Days
[2024-10-18] MEDS: Rivaroxaban 20 MG Tablet PO (09:05)
[2024-10-18] MEDS: Allopurinol 300 MG Tablet PO (09:05)
[2024-10-18] MEDS: LINAGLIPTIN 5 MG TABLET PO (09:05)
[2024-10-18] MEDS: Amitriptyline 25 MG Tablet PO (09:05)
[2024-10-18] MEDS: Senna/Docusate Sodium 1 Tablet 2 TABLET PO (09:05)
[2024-10-18] MEDS: oxyCODONE HCl Cr 10 MG Tablet PO (09:06)
[2024-10-18 09:13] VITALS: BP 112/55; PULSE 116; RESP 16; TEMP 36.4; O2SAT 94
[2024-10-18 10:09] VITALS: PULSE 116; RESP 16
--- NOTE | 2024-10-18 10:58 | DCINST_ITS ---
Discharge Instructions Diet Discharge Diet: Light diet - advance as tolerated DC O2, CPAP, BIPAP needs Home O2 Discharge instructions: No Dressing / Incision Discharge Activity: Return to Normal Activity and May Not Drive Weight Bearing Status: Weight bearing as tolerated Dressing / Incision Call your doctor if you observe: Fever of 101 or Higher, Coldness, Increased Pain, Numbness or Tingling, Change in Color, Inability to urinate, Inability to have a bowel movement, Shortness of breath, Dizziness, Fainting spells, Swelling in the ankles, Chest pain, Prolonged hiccupping, Increased palpitations (irregular heartbeat) and Calf discomfort Follow Up Care When: IN 2 WEEKS Test Results: Test results from this visit will be discussed in further detail at your follow- up appointment, if applicable. Discharge Plan Admission Admit Date/Time: 10/15/24 18:29 Primary Reason for Your Visit: Failure to thrive Attending Provider: Sriram Stroud Primary Care Provider: Saulo Miranda Consulting Providers: Gemma Nava Instructions Patient Instructions: ED Diabetes- Overview Additional Instructions / Restrictions: Follow-up with your PCP. Return for any other concerns. Discharge Orders/Prescriptions Prescriptions: New sennosides-docusate sodium [Stimulant Laxative Plus] 8.6-50 mg Tablet 2 tab PO BID Qty: 0 0RF rosuvastatin 10 mg tablet 10 mg PO DAILY 30 Days Qty: 30 2RF insulin lispro [Humalog [place] KwikPen U-100] 100 unit/mL insulin pen, half- unit See Protocol subcut TIDCM Qty: 15 3RF Protocol: 3. Sliding Scale Insulin Med Dosing Condition: 150-189 mg/dl = 1 unit Condition: 190-229 mg/dl = 2 units Condition: 230-269 mg/dl = 3 units Condition: 270-309 mg/dl = 4 units Condition: 310-349 mg/dl = 5 units Condition: 350-399 mg/dl = 6 units Condition: 400-449 mg/dl = 7 units Condition: Greater than 449 call physician Protocol Text: Suggested for: - Patients on Total Daily Insulin Dose of 37-55 units - Obese, infected, or steroid patients MEDIUM DOSING ALGORITHIM Rx Instructions: Call PCP if Glucose <70 or > 400 Continued levetiracetam 500 mg tablet 500 mg PO BID Xtampza ER 18 mg cap,sprinkl,ER12hr(DONT CRUSH) 18 mg PO BID Rx Instructions: must administer with a meal/food Januvia 100 mg tablet 100 mg PO DAILY amitriptyline 25 mg tablet 25 mg PO DAILY tamsulosin 0.4 mg capsule 0.4 mg PO DAILY Xarelto 20 mg tablet 20 mg PO DAILY Rx Instructions: must administer with evening meal allopurinol 300 mg tablet 300 mg PO DAILY Changed hydroxyzine pamoate 25 mg capsule 25 mg PO QHS PRN (Reason: insomnia) Qty: 30 0RF oxymetazoline [12 Hour Nasal Relief [place]] 0.05 % spray,non-aerosol 2 spray intranasal BID PRN (Reason: Nasal congestion) 30 Days Qty: 0 0RF Held insulin glargine [Lantus Solostar U-100 Insulin] 100 unit/mL (3 mL) insulin pen subcut Hold Instructions: Hold if glucose less than 130 mg/dl Patient Comments: unknown dosage Discontinued rosuvastatin 10 mg tablet 10 mg PO QHS Referrals / Follow Up: Saulo Miranda MD [Primary Care Provider] - Saulo Miranda MD [[facility]] - 5-7 Days Disposition Disposition (needs filled in before D/C Order can be placed): Home Health Service
--- NOTE | 2024-10-18 11:09 | CASEMGMT ---
Addendum entered by Lauren Clement 10/18/24 16:07: Social Work- CHANI met with pt granddaughter, Ana, to discuss pt preference to discharge home. Pt granddaughter states that she will transport pt home. Ana reports that she has spoken with [facility] and [employer] about starting services. SW provided printable information on visual door alarms to allow pt a visual notification of when people are at the door since Ana reports pt is hard of hearing and does not often hear people knocking. Ana agreeable to obtaining a system. SW also provided printable information for locked medication dispensers. Ana also agreeable to obtaining for pt. SW provided additional education on [facility] to supplement printables provided yesterday. Ana reports pt and combined have $900/month income. Pt receives $19/month in food stamps. RNCM updated. Physician updated. Home health care provided by [facility] is scheduled to begin 10/20/24. Ana updated. Ana reports that pt son Jim is planning to come stay with pt. CHANI called son Jim and Natalie to confirm. Natalie reports that they will be up on Tuesday for a short visit. They are not intending to stay and are not able to care for pt for any length of time per Natalie, although they will assist pt while they are visiting. SW provided information on discharge plans. Natalie expressed thanks for coordination of care. CHANI called APS, Keturah, to update on discharge plans today. SW provided information for referral. Keturah to visit pt Sunday 10/22. SW updated granddaughter Ana and pt. SW completed [facility] referral per granddaughter request. Pt and granddaughter state no other needs at this time. Granddaughter reports that she will likely take off work to provide assistance to pt tomorrow. Plan: Home, with [facility] IZZY Piña Original Note: Social Work- CHANI met with pt to follow up on discussion regarding referral to [facility]. Pt is tearful, reporting that he wants to share a room with his of 65 years. SW provided education on hospital stays, skilled stays, as well as SNF and AL options. Pt continues to feel that he would like to go home, but also is willing to go to SNF if will go as well. SW provided additional education and support, discussing concerns regarding inability to administer his insulin and safety. Pt reports that he would like to talk with his prior to making a final decision. CHANI received a call from Jim, HCPOA/son, and Natalie wanting to discuss discharge planning. CHANI provided updates and transferred Jim to on PCU for updates on pt . Jim requests updates when pt makes decision. CHANI requested PCU SW discuss desire for a conversation with pt . Pt declines to speak with pt at this time. IZZY Piña
[2024-10-18] MEDS: Insulin Lispro 100 UNIT/ML INSULN.PEN SC (11:18)
[2024-10-18 11:35] LABS: Bedside Glucose 157 mg/dL (74-106)
--- NOTE | 2024-10-18 14:05 | PCM.DC.SUM ---
Providers Date of Admission: 10/15/24 Date of Discharge: 10/18/24 Primary Care Physician: Dr. Saulo Miranda MD Reason For Visit: FTT Diagnosis Discharge Diagnosis (1) Failure to thrive: Status: Acute Plan 89-year-old gentleman was admitted because of not able to take care of himself, recurrent fall, decreased equilibrium and steady gait. # Failure to thrive/inability to care for self -Family very concerned about patient's ability to care for self -PT/OT -Case management and social work consults 10/16: Patient will need fpc and subacute rehab. 10/18: Patient adamant that he wants to go home. Patient is a smoker trying to convince through his . Patient states her granddaughter is not power of commercial real estate attorney and his son who is current power of commercial real estate attorney has health issues himself. Patient not able to take care of his medications. # Chronic pain secondary to lumbar stenosis with multiple lumbar surgeries -Continue patient's home regimen while admitted #Type 2 diabetes mellitus -Glucose was 124 in ED. Glucose 109 BMP. Accu-Cheks every 6 hours. Hypoglycemia protocol ordered 10/18: Glucose is 157. Prescription given for Humalog sliding scale insulin and atorvastatin. 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 Discharge follow-up instructions completed. Discharge process discussed with the patient and all questions were answered to patient's satisfaction. Follow with PCP in 1 to 2 weeks Total time spent, exact 35 minutes on discharge meds reconciliation, examination, coordination of care with nurses and ancillary staff, review of imaging and blood test and discussion with the patient on follow-up instructions. Medications at Discharge Home Medications allopurinol 300 mg tablet 300 mg PO DAILY 10/15/24 amitriptyline 25 mg tablet 25 mg PO DAILY 10/15/24 insulin glargine 100 unit/mL (3 mL) subcutaneous pen (Lantus Solostar U-100 Insulin) unit subcut 10/15/24 Held on 10/17/24. Instructions: Hold if glucose less than 130 mg/dl levetiracetam 500 mg tablet 500 mg PO BID 10/15/24 oxycodone myristate 18 mg capsule sprinkle extended release 12hr(DON'T CRUSH) (Xtampza ER) 18 mg PO BID 10/15/24 rivaroxaban 20 mg tablet (Xarelto) 20 mg PO DAILY 10/15/24 sitagliptin phosphate 100 mg tablet (Januvia) 100 mg PO DAILY 10/15/24 tamsulosin 0.4 mg capsule 0.4 mg PO DAILY 10/15/24 hydroxyzine pamoate 25 mg capsule 25 mg PO QHS PRN insomnia #30 CAPSULES 10/17/24 oxymetazoline 0.05 % nasal spray (12 Hour Nasal Relief [place]) 2 spray intranasal BID PRN Nasal congestion 30 days #0 mL 10/17/24 sennosides 8.6 mg-docusate sodium 50 mg tablet (Stimulant Laxative Plus) 2 tab PO BID #0 tabs 10/17/24 insulin lispro 100 unit/mL subcutaneous half-unit pen (Humalog Andrews KwikPen (U-100)) See Protocol subcut TIDCM #15 mL 10/18/24 rosuvastatin 10 mg tablet 10 mg PO DAILY 1 month #30 tabs 10/18/24 Physical Exam Narrative Seen and examined. No acute issues. Patient refusing to go to SNF. Patient has difficulty in ambulation, recurrent fall 2 falls in last 1 week. Unsteady gait and poor balance and equilibrium Physical exam General: Alert, Oriented x3, Cooperative HEENT: Atraumatic, PERRLA, EOMI, Normocephalic Oral: No Gingival or Mucosal Lesions/ Ulcerations Neck: Supple, No JVD, Negative Carotid Bruits Chest wall/Lungs: Air entry diminished in bilateral lung bases. No crepitation/rhonchi Cardiovascular: Regular rate, Regular Rhythm, Normal S1, Normal S2, systolic murmur Abdomen: Bowel Sounds Present, Soft, Non Tender, Non-Distended : No dysuria. No renal angle tenderness. No suprapubic tenderness. Extremities: No edema, Capillary Refill Less than 3 Seconds Skin: No rashes, No breakdown Musculoskeletal: No Tenderness to Palpation of Joints or Extremities. Muscle power 4/5 at major joints. ROM restricted knee joints. Neurological: Cranial nerves II-XII grossly intact, DTR 2+/4. No acute focal neurological deficit. Psych/Mental Status: Normal Affect, Appropriate. Weight / BMI Weight Weight: 190 lb 4.143 oz Body Mass Index (BMI) 28.0 ABG / Lab / Microbiology Data 10/16/24 06:56 10/16/24 06:56 Laboratory: Laboratory Results - last 24 hr 10/17/24 16:50: POC Glucose 172 H 10/17/24 21:56: POC Glucose 133 H 10/18/24 06:55: POC Glucose 129 H 10/18/24 11:10: POC Glucose 157 H D/C Instructions DC O2, CPAP, BIPAP Needs Home O2 Discharge instructions: No Meaningful Use Info Meaningful Use Meaningful Use Diagnoses (Choose all that apply): None applicable Ischemic Stroke Statin Dosing Therapy Reference: STATIN DOSE THERAPY REFERENCE: * Patients > 75 years receive moderate or high dose statin therapy. * Patients 75 years or YOUNGER should receive HIGH intensity statin dose unless contraindicated. You will be required to document reason for non-treatment if statin daily dose does not meet guidelines. HIGH DOSE STATIN THERAPY DAILY Atorvastatin > than or = to 40 mg Rosuvastatin > than or = to 20 mg Amlodipine + Atorvastatin > than or = to 2.5/40 mg Ezetimibe + Simvastatin 10/80 mg Simvastatin 80mg Discharge Plan Admission Admit Date/Time: 10/15/24 18:29 Primary Reason for Your Visit: Failure to thrive Attending Provider: Sriram Stroud Primary Care Provider: Saulo Miranda Consulting Providers: Gemma Nava Instructions Patient Instructions: ED Diabetes- Overview Additional Instructions / Restrictions: Follow-up with your PCP. Return for any other concerns. Discharge Orders/Prescriptions Prescriptions: New sennosides-docusate sodium [Stimulant Laxative Plus] 8.6-50 mg Tablet 2 tab PO BID Qty: 0 0RF rosuvastatin 10 mg tablet 10 mg PO DAILY 30 Days Qty: 30 2RF insulin lispro [Humalog Andrews KwikPen U-100] 100 unit/mL insulin pen, half-unit See Protocol subcut TIDCM Qty: 15 3RF Protocol: 3. Sliding Scale Insulin Med Dosing Condition: 150-189 mg/dl = 1 unit Condition: 190-229 mg/dl = 2 units Condition: 230-269 mg/dl = 3 units Condition: 270-309 mg/dl = 4 units Condition: 310-349 mg/dl = 5 units Condition: 350-399 mg/dl = 6 units Condition: 400-449 mg/dl = 7 units Condition: Greater than 449 call physician Protocol Text: Suggested for: - Patients on Total Daily Insulin Dose of 37-55 units - Obese, infected, or steroid patients MEDIUM DOSING ALGORITHIM Rx Instructions: Call PCP if Glucose <70 or > 400 Continued levetiracetam 500 mg tablet 500 mg PO BID Xtampza ER 18 mg cap,sprinkl,ER12hr(DONT CRUSH) 18 mg PO BID Rx Instructions: must administer with a meal/food Januvia 100 mg tablet 100 mg PO DAILY amitriptyline 25 mg tablet 25 mg PO DAILY tamsulosin 0.4 mg capsule 0.4 mg PO DAILY Xarelto 20 mg tablet 20 mg PO DAILY Rx Instructions: must administer with evening meal allopurinol 300 mg tablet 300 mg PO DAILY Changed hydroxyzine pamoate 25 mg capsule 25 mg PO QHS PRN (Reason: insomnia) Qty: 30 0RF oxymetazoline [12 Hour Nasal Relief [place]] 0.05 % spray,non-aerosol 2 spray intranasal BID PRN (Reason: Nasal congestion) 30 Days Qty: 0 0RF Held insulin glargine [Lantus Solostar U-100 Insulin] 100 unit/mL (3 mL) insulin pen subcut Hold Instructions: Hold if glucose less than 130 mg/dl Patient Comments: unknown dosage Discontinued rosuvastatin 10 mg tablet 10 mg PO QHS Referrals / Follow Up: Saulo Miranda MD [Primary Care Provider] - Saulo Miranda MD [[facility]] - 5-7 Days Disposition Disposition (needs filled in before D/C Order can be placed): Home Health Service Charges/Coding Visit Charges Inpatient E&M: 06715 Disch Hosp >30min
[2024-10-18 14:47] VITALS: BP 124/69; PULSE 109; RESP 14; TEMP 36.9; O2SAT 92
--- NOTE | 2024-10-18 15:22 | CASEMGMT ---
Addendum entered by Marley Steele 10/18/24 16:02: [facility] calls this RN CM back and states that they do not have the Andrews sized insulin pen that Dr Stroud ordered. Dr. Stroud notified and gives verbal order for regular sized pen. [facility] states that they do have this medication and that the co-pay comes to 12$. [facility] also states that the pt Rx for Rosuvastatin comes to 13$. [facility] states that the drive through is currently down due to staffing. RN CM back to pt room at this time. Pt RN and pt GD @ bedside. Pt RN providing DM care education. Pt, pt RN, and pt GD updated on medications and state that they are agreeable. Notified pt and pt family that the drive through is currently closed. Pt GD states that she will get the new Rxs at the pharmacy before leaving the hospital. Pt and pt GD deny further questions, concerns, or needs at this time. Finalized plan: Home with pt GD, son support starting tomorrow, skilled HHC starting 10/20 (SN, PT, OT, & SW), APS referral, [facility] referral, MoW, Medical Alert system, and new Rxs to better help manage the pt's DM. Original Note: See CHANI notes. Pt is still adamant about discharging home rather than attending a SNF for a short term stay as advised by the medical staff. Pt granddaughter is here at [facility] and plans to drive the pt home. Pt states that he will have enough help at home between his neighbor, son, granddaughter, and HH. Pt has been accepted by [facility] for SN, PT, OT, and SW with a SOC date 10/20/24. MARCIAL CM to pt room. Pt states that he has a functioning BGM with sufficient supplies. Pt son plans to come to pts home tomorrow to stay with the pt. The pt GD has already worked on getting a medical alert system. SW has established MoW for the pt and made an APS referral. Dr. Stroud notified and placed an order for DC home. TC to [facility] to ensure pt Rxs have been received and to check the costs. [facility] reports that they will call this RN CM back once they are processed. Pt RN aware. CM to follow.
[2024-10-18 15:54] VITALS: BP 124/69; PULSE 110; RESP 18; TEMP 36.9; O2SAT 92
[2024-10-18 16:21] LABS: Bedside Glucose 173 mg/dL (74-106)
== END 2024-10-18 16:12 | disposition home health service (06) ==
LOC: ED 18:16 → MS3 18:58
PROVIDERS: Physician Assistant; Admitting Provider Internal Medicine; Emergency Provider Emergency Medicine; PCP Family Medicine; Visit Provider Internal Medicine
DX: R62.7 Adult failure to thrive (principal); G40.909 Epilepsy, unspecified, not intractable, without status epilepticus; Z79.4 Long term (current) use of insulin; E11.9 Type 2 diabetes mellitus without complications; G89.29 Other chronic pain; M10.9 Gout, unspecified; Z79.01 Long term (current) use of anticoagulants; F17.220 Nicotine dependence, chewing tobacco, uncomplicated; N40.1 Benign prostatic hyperplasia with lower urinary tract symptoms; N13.8 Other obstructive and reflux uropathy; R29.6 Repeated falls; R26.81 Unsteadiness on feet; R01.1 Cardiac murmur, unspecified; M48.061 Spinal stenosis, lumbar region without neurogenic claudication; Z68.28 Body mass index [BMI] 28.0-28.9, adult
CPT/HCPCS: 36415; 80048; 82962; 83605; 84443; 85025; 94668; 97162; 97166; 97530; 97535; 97802; 99221; 99285; 99406; A4216; G0378

== ENCOUNTER 2024-10-30 09:33 | Observation (INO) | payer MEDICARE, SELFPAY ==
[2024-10-30 09:34] VITALS: BP 143/88; PULSE 103; RESP 18; TEMP 36.6; O2SAT 94; BMI 27.8
--- NOTE | 2024-10-30 09:42 | RAD_ITS ---
PROCEDURE: LUMBAR SPINE 2 OR 3 VIEWS 10/30/2024 REASON FOR EXAM: Low back pain following recent falls. TECHNIQUE: 3 view(s) of the lumbar spine COMPARISON: None FINDINGS: Vertebrae: Spondylosis. Minimal loss of height of the superior endplate of the L1 vertebrae. Discs: Advanced multilevel disc space narrowing with endplate osteophytes. Alignment: Mild dextroscoliosis. Other: Large amount of fecal material is seen in the colon. There is gaseous distention of the stomach. RAD/Lumbar Spine 2 or 3 Views IMPRESSION: ADVANCED DEGENERATIVE CHANGES OF THE LUMBAR SPINE. Minimal loss of height of the superior endplate of the L1 vertebrae. Reading Location: [facility]
--- NOTE | 2024-10-30 09:44 | EDS_ITS ---
HPI HPI - Fall History of Present Illness Chief Complaint: Fall Informant: patient and EMS Narrative Narrative: 89-year-old male presenting with debility that has been progressive, he had a fall last night due to his foot getting stuck under his bed when he tried to get into it, causing him to fall and hurt his low back. He has chronic low back pain, he has had surgery in his back, he sees Dr. Garnica for pain management where he gets injections and pain medications, he has spinal stenosis and he states he is legs have progressively been becoming weaker over the last couple months, the right side is always been worse than the left, along with some time sciatica pain shooting down his right side which has not been the case since last night, denies any numbness or saddle anesthesia. Over the last couple weeks he has had a little bit of urinary incontinence but he denies any bowel retention or incontinence or problems having bowel movements. He was here couple of weeks ago for a fall and similar injury to his low back, the providers and family were trying to encourage him to be placed in [facility] or assisted living, which is where his was just recently placed and it seems she was the primary board lining machine operator but the patient has been very resistant until now and states that he is not able to take care of himself and now he needs help and he needs to go to the same place his is at. Apparently, he is upset be cause someone called Adult Protective Services on him, presumably one of his children according to the patient. [facility] Medical History Failure to thrive History of diabetes mellitus, type II History of seizure disorder Gout Drooping eyelid Home Medications ?Medication ?Instructions ?Recorded ?Last Taken ?Type allopurinol 300 mg tablet 300 mg PO DAILY 10/15/24 Unk nown History amitriptyline 25 mg tablet 25 mg PO DAILY 10/15/24 Unk nown History insulin glargine 100 unit/mL (3 unit subcut 10/15/24 U nknown History mL) subcutaneous pen (Lantus Solostar U-100 Insulin) Held on 10/17/24. Instructions: Hold if glucose less than 130 mg/dl levetiracetam 500 mg tablet 500 mg PO BID 10/15/24 Unk nown History oxycodone myristate 18 mg capsule 18 mg PO BID 5 Unknown History sprinkle extended release 12hr(DON'T CRUSH) (Xtampza ER) rivaroxaban 20 mg tablet (Xarelto) 20 mg PO DAILY 09/17 08/11 Unknown History sitagliptin phosphate 100 mg 100 mg PO DAILY 10/15/24 Unknown History tablet (Januvia) tamsulosin 0.4 mg capsule 0.4 mg PO DAILY 10/15/24 Unk nown History hydroxyzine pamoate 25 mg capsule 25 mg PO QHS PRN ins omnia #30 10/17/24 Unknown Rx CAPSULES oxymetazoline 0.05 % nasal spray 2 spray intranasal BI D PRN Nasal 10/17/24 Unknown Rx (12 Hour Nasal Relief [place]) congestion 30 days #0 mL sennosides 8.6 mg-docusate sodium 2 tab PO BID #0 tabs 10/17/24 Unknown Rx 50 mg tablet (Stimulant Laxative Plus) insulin lispro 100 unit/mL See Protocol subcut TIDCM # 15 mL 10/18/24 Unknown Rx subcutaneous half-unit pen (Humalog Andrews KwikPen (U-100)) rosuvastatin 10 mg tablet 10 mg PO DAILY 1 month #30 t abs 10/18/24 Unknown Rx Allergy/AdvReac Type Severity Reaction Status Date / Time Penicillins Allergy Mild Hives Verified 10/30/24 09:38 hydromorphone (From Dilaudid) Allergy Hallucinati Verified 10/30/24 09:38 ons ketorolac (From Toradol) Allergy Itching Verified 10/30/24 09:38 Family History Father Tuberculosis Surgical History History of back surgery Hx of laminectomy Social History household members: spouse housing: house Smoking Status: Never smoker Smokeless tobacco user: chewing tobacco alcohol intake: never what type of physical activity do you participate in: none do you feel safe at home: Yes ROS ROS ED Constitutional Constitutional ED: Denies chills or fever(s) Eyes Eyes: Reports other Details: Chronically drooping right eyelid ; Denies change in vision or diplopia ENT ENT ED: Denies rhinorrhea or sore throat Cardiovascular Cardiovascular: Denies chest pain or palpitations Respiratory/Chest Respiratory/Chest: Denies cough or dyspnea Gastrointestinal Gastrointestinal: Denies abdominal pain, diarrhea, nausea or vomiting Genitourinary Genitourinary ED: Denies dysuria or hematuria Musculoskeletal Musculoskeletal: Reports back pain; Denies neck pain Integumentary Denies abscess or rash Neurologic Neurologic: Reports weakness; Denies headache(s) or paresthesias Psychiatric Psychiatric: Denies anxiety or suicidal thoughts EXAM Physical Exam Const Vital Signs: 10/30/24 09:34 10/30/24 09:39 Temperature 98 F Temperature Source Oral Pulse Rate 103 H Respiratory Rate 18 Respiratory Effort Normal Non-Labored Respiratory Depth Normal Respiratory Pattern Normal Blood Pressure 143/88 H Blood Pressure Mean 106 Pulse Ox 94 Oxygen Delivery Method Room Air Positive well nourished and well developed General Appearance ED: well developed and NAD HEENT Reports dry mucous membranes normocephalic and atraumatic Mouth ED: Yes dry mucous membranes Mouth: dry mucous membranes Eyes PERRL and EOMs intact bilaterally Eyes Narrative: Right ptosis, patient has a piece of tape holding his eyelid up Neck full ROM and supple Resp normal respiratory effort and clear to auscultation bilaterally Cardio regular rate and regular rhythm GI non-tender and non-distended Auscultation: normoactive bowel sounds Palpation: soft Back/Spine no CVA tenderness Back/Spine Narrative: Some diffuse low back tenderness no obvious signs of trauma no palpable step- off, well-healed surgical scar lumbar General Back: other Able to sit up with little assistance, limited range of motion due to pain in the lumbar area Extremity normal to inspection General Extremety ED: Negative for edema, pulses abnormal or tenderness General Extremity: Negative for edema or pulses abnormal Neuro oriented x3, CN's II-XII intact bilaterally and no sensory deficits noted Neuro Narrative: Symmetrically weak in both lower extremities compared with the upper extremities. Chronic per patient. Diminished reflexes, no clonus, toes downgoing bilaterally. Reflexes are better in the upper extremities. No sensory deficits. [place] Coma Scale: document GCS findings Spontaneous Obeys Commands Oriented 15 Sensorium / Orientation: awake and alert Psych mental status grossly normal and thought process normal Skin no rashes or lesions noted and no wounds MDM MDM MDM Narrative Medical decision making narrative: Obtained three-view x-ray series of the lumbar spine which on my interpretation show chronic changes and narrowed disc spaces but no acute fractures. While waiting for labs and urinalysis his pain was treated with morphine and prophylactic Zofran. He is not have any signs of head injury nor did he hit his head according to him, and he is mentating well so I do not think he needs advanced imaging of that or any other part of his body right now based on my exam. Labs noted and unremarkable. Waiting for the patient to provide us urine specimen, I think we can wait for a clean-catch and I will discuss with hospitalist for admission for further evaluation... Lab Data Attestation: I reviewed the patient's lab results. Labs: Laboratory Results - last 24 hr 10/30/24 10:03 WBC 8.9 RBC 4.65 Hgb 14.4 Hct 43.4 MCV 93.3 MCH 31.0 MCHC 33.2 RDW Std Deviation 48.4 H RDW Coeff of May 14.3 Plt Count 304 MPV 9.5 Immature Gran % (Auto) 0.300 Neut % (Auto) 77.6 H Lymph % (Auto) 13.9 L Frontier % (Auto) 7.0 Eos % (Auto) 0.8 Baso % (Auto) 0.4 Absolute Neuts (auto) 6.9 Absolute Lymphs (auto) 1.24 Nucleated RBC % 0 Sodium 140 Potassium 4.1 Chloride 101 Carbon Dioxide 26.7 Anion Gap 12 BUN 12 Creatinine 0.83 Estim Creat Clear Calc 65.35 Est GFR (MDRD) Non-Af 84 BUN/Creatinine Ratio 13.9 Glucose 151 H Calcium 10.0 Radiography Diagnostic Testing: Clinical Impression(s) from Imaging Studies Lumbar Spine X-Ray 10/30/24 09:42 IMPRESSION: ADVANCED DEGENERATIVE CHANGES OF THE LUMBAR SPINE. Minimal loss of height of the superior endplate of the L1 vertebrae. Reading Location: [facility] Management Discussion w/another healthcare provider: Hospitalist Discharge Plan Dx/Rx/DC Orders Clinical Impression: Debility, Acute exacerbation of chronic low back pain, Fall from slip, trip, or stumble Disposition Disposition: [facility]
[2024-10-30] MEDS: Ondansetron 4 MG/2 ML Vial IV ×2 (10:03→20:52)
[2024-10-30] MEDS: Morphine 2 MG/ML Syringe IV ×2 (10:03→13:01)
[2024-10-30] MEDS: 0.9% Normal Saline (500mL Bag) 500 ML 999 ML IV (10:05)
[2024-10-30 10:10] LABS: Absolute Lymphocyte Count 1.24 X10^3/uL (0.83-4.51); Absolute Neutrophil Count 6.9 X10^3/uL (2.0-7.7); Basophil# 0.04 X10^3/uL; Basophil% 0.4 % (0-1); Eosinophil# 0.07 X10^3/uL; Eosinophils% 0.8 % (0-5); Hematocrit 43.4 % (40-54); Hemoglobin 14.4 g/dL (13.0-16.5); Lymphocyte # 1.24 X10^3/ul (0.83-4.51); Lymphocyte % 13.9 % (19-41); Mean Corp Hgb Conc 33.2 g/dL (32-36); Mean Corpuscular Volume 93.3 fL (80-94); Mean Platelet Vol. 9.5 fl (6.2-12.0); Monocyte# 0.62 X10^3/uL; NRBC Flagged by Analyzer 0 % (0-5); Neutrophil # 6.92 X10^3/uL (2.7-7.7); Neutrophil % 77.6 % (47-70); Platelet Count 304 K/mm3 (150-450); RBC Distribution Width CV 14.3 % (11.6-14.6); RBC Distribution Width SD 48.4 fl (35.1-43.9); Red Blood Count 4.65 M/mm3 (4.6-6.2); White Blood Count 8.9 K/mm3 (4.4-11.0)
[2024-10-30 10:42] LABS: Anion Gap 12 (5-15); BUN 12 mg/dL (4-19); BUN/Creat Ratio 13.9 RATIO (10-20); Carbon Dioxide 26.7 mmol/L (21.0-32.0); Chloride 101 mmol/L (98-108); Creatinine, Serum 0.83 mg/dL (0.70-1.20); EST Glomerular Filtration Rate 84 (>60); Estimated Creatinine Clearance 65.35 ml/min (50-250); Glucose 151 mg/dL (70-99); Potassium 4.1 mmol/L (3.3-5.1); Sodium Level 140 mmol/L (133-145)
--- NOTE | 2024-10-30 11:18 | HP.PCM.HOS_ITS ---
HPI - General General Date of Admission: 10/30/24 Date of Service: 10/30/24 Chief Complaint: failure to thrive HPI Narrative LINO WHEELER, is a 89 M with a PMH as outlined who was admitted via the ED On 10/30/2024 with a complaint of failure to thrive. Patient was recently admitted for mechanical fall and injury to his lower back and counseled that he should go to a senior care facility but patient refused. His is in a SNF, and he has been alone at home but has been unable to care for himself. He sees Dr. Encinas for pain management and had been getting injections and pain medications for spinal stenosis. However he has been getting weaker at home and able to care for himself. Family therefore brought him into the ED today for possible placement. He denies any fever, chills, palpitations, dizziness, nausea vomiting or any other symptoms. Review of systems otherwise negative. Vitals in the ED were temp of 98F, MO of 79, BP of 122/110, RR of 16 and he was saturating at 95% on room air. CBC was unremarkable, and BMP was also unremarkable. Lumbar spine xray showed minimal loss of height of the superior endplate of the L1 vertebrae. He is being admitted to be managed for failure to thrive and debility. [facility] Medical History Failure to thrive History of diabetes mellitus, type II History of seizure disorder Gout Drooping eyelid Home Medications ?Medication ?Instructions ?Recorded ?Last Taken ?Type allopurinol 300 mg tablet 300 mg PO DAILY 10/15/24 Unk nown History amitriptyline 25 mg tablet 25 mg PO DAILY 10/15/24 Unk nown History insulin glargine 100 unit/mL (3 unit subcut 10/15/24 U nknown History mL) subcutaneous pen (Lantus Solostar U-100 Insulin) Held on 10/17/24. Instructions: Hold if glucose less than 130 mg/dl levetiracetam 500 mg tablet 500 mg PO BID 10/15/24 Unk nown History oxycodone myristate 18 mg capsule 18 mg PO BID 5 Unknown History sprinkle extended release 12hr(DON'T CRUSH) (Xtampza ER) rivaroxaban 20 mg tablet (Xarelto) 20 mg PO DAILY 09/17 08/11 Unknown History sitagliptin phosphate 100 mg 100 mg PO DAILY 10/15/24 Unknown History tablet (Januvia) tamsulosin 0.4 mg capsule 0.4 mg PO DAILY 10/15/24 Unk nown History hydroxyzine pamoate 25 mg capsule 25 mg PO QHS PRN ins omnia #30 10/17/24 Unknown Rx CAPSULES oxymetazoline 0.05 % nasal spray 2 spray intranasal BI D PRN Nasal 10/17/24 Unknown Rx (12 Hour Nasal Relief [place]) congestion 30 days #0 mL
--- NOTE | 2024-10-30 11:18 | PCM.HP.STD ---
HPI - General General Date of Admission: 10/30/24 Date of Service: 10/30/24 Chief Complaint: failure to thrive HPI Narrative LINO WHEELER, is a 89 M with a PMH as outlined who was admitted via the ED On 10/30/2024 with a complaint of failure to thrive. Patient was recently admitted for mechanical fall and injury to his lower back and counseled that he should go to a intermediate facility but patient refused. His is in a SNF, and he has been alone at home but has been unable to care for himself. He sees Dr. Encinas for pain management and had been getting injections and pain medications for spinal stenosis. However he has been getting weaker at home and able to care for himself. Family therefore brought him into the ED today for possible placement. He denies any fever, chills, palpitations, dizziness, nausea vomiting or any other symptoms. Review of systems otherwise negative. Vitals in the ED were temp of 98F, ID of 79, BP of 122/110, RR of 16 and he was saturating at 95% on room air. CBC was unremarkable, and BMP was also unremarkable. Lumbar spine xray showed minimal loss of height of the superior endplate of the L1 vertebrae. He is being admitted to be managed for failure to thrive and debility. [facility] Medical History Failure to thrive History of diabetes mellitus, type II History of seizure disorder Gout Drooping eyelid Home Medications ?Medication ?Instructions ?Recorded ?Last Taken ?Type allopurinol 300 mg tablet 300 mg PO DAILY 10/15/24 Unknown History amitriptyline 25 mg tablet 25 mg PO DAILY 10/15/24 Unknown History insulin glargine 100 unit/mL (3 unit subcut 10/15/24 Unknown History mL) subcutaneous pen (Lantus Solostar U-100 Insulin) Held on 10/17/24. Instructions: Hold if glucose less than 130 mg/dl levetiracetam 500 mg tablet 500 mg PO BID 10/15/24 Unknown History oxycodone myristate 18 mg capsule 18 mg PO BID 10/15/24 Unknown History sprinkle extended release 12hr(DON'T CRUSH) (Xtampza ER) rivaroxaban 20 mg tablet (Xarelto) 20 mg PO DAILY 10/15/24 Unknown History sitagliptin phosphate 100 mg 100 mg PO DAILY 10/15/24 Unknown History tablet (Januvia) tamsulosin 0.4 mg capsule 0.4 mg PO DAILY 10/15/24 Unknown History hydroxyzine pamoate 25 mg capsule 25 mg PO QHS PRN insomnia #30 10/17/24 Unknown Rx CAPSULES oxymetazoline 0.05 % nasal spray 2 spray intranasal BID PRN Nasal 10/17/24 Unknown Rx (12 Hour Nasal Relief [place]) congestion 30 days #0 mL sennosides 8.6 mg-docusate sodium 2 tab PO BID #0 tabs 10/17/24 Unknown Rx 50 mg tablet (Stimulant Laxative Plus) insulin lispro 100 unit/mL See Protocol subcut TIDCM #15 mL 10/18/24 Unknown Rx subcutaneous half-unit pen (Humalog Andrews KwikPen (U-100)) rosuvastatin 10 mg tablet 10 mg PO DAILY 1 month #30 tabs 10/18/24 Unknown Rx Allergy/AdvReac Type Severity Reaction Status Date / Time Penicillins Allergy Mild Hives Verified 10/30/24 09:38 hydromorphone (From Dilaudid) Allergy Hallucinati Verified 10/30/24 09:38 ons ketorolac (From Toradol) Allergy Itching Verified 10/30/24 09:38 Family History Father Tuberculosis Surgical History History of back surgery Hx of laminectomy Social History household members: spouse housing: house Smoking Status: Never smoker Smokeless tobacco user: chewing tobacco alcohol intake: never what type of physical activity do you participate in: none do you feel safe at home: Yes ROS Constitutional Constitutional: Reports fatigue and weakness; Denies anorexia, chills or fever(s) Eyes Eyes: Denies change in vision ENT HEENT: Denies dysphagia or headache(s) Cardiovascular Cardiovascular: Denies claudication, dyspnea on exertion, lightheadedness, orthopnea, palpitations, paroxysmal nocturnal dyspnea, rapid heart rate or syncope Gastrointestinal Gastrointestinal: Denies abdominal pain, constipation, diarrhea, nausea or vomiting Genitourinary Genitourinary: Denies dysuria Musculoskeletal Musculoskeletal: Reports back pain and myalgias; Denies arthralgias or joint pain Neurologic Neurologic: Denies confusion, dizziness, focal weakness, headache(s), numbness, paresthesias, seizure-like activity, seizures or syncope Psychiatric Psychiatric: Denies anxiety or depression Endocrine Endocrinology: Denies change in body appearance Hematologic/Lymphatic Hematologic/Lymphatic: Denies anemia Vital Signs Vital Signs Vital Signs: 10/30/24 09:34 10/30/24 09:39 Temperature 98 F Temperature Source Oral Pulse Rate 103 H Respiratory Rate 18 Respiratory Effort Normal Non-Labored Respiratory Depth Normal Respiratory Pattern Normal Blood Pressure 143/88 H Blood Pressure Mean 106 Pulse Ox 94 Oxygen Delivery Method Room Air Weight Weight: 188 lb 4.396 oz Body Mass Index (BMI) 27.8 Physical Exam Const alert and oriented x3 Constitutional Narrative: frail, weak General Appearance: cooperative Orientation / Consciousness: lethargic HEENT normocephalic and head/scalp atraumatic HEENT Narrative: dry oral mucosa Eyes PERRL, EOMs intact bilaterally and conjunctivae normal Neck no lymphadenopathy, supple and no JVD Resp normal respiratory effort, no use of accessory muscles and clear to auscultation bilaterally Cardio regular rate, regular rhythm, S1 normal heart sound, S2 normal heart sound and no murmurs GI normal to inspection, nondistended, normoactive bowel sounds, soft to palpation, non-tender and non-distended Extremity normal to inspection, full ROM and no clubbing, cyanosis or edema Neuro oriented x3, CN's II-XII intact bilaterally, moves all extremities and no focal motor deficits Sensorium / Orientation: awake and alert Motor Exam: strength 5/5 throughout Psych affect normal Results Lab / Micro Data 10/30/24 10:03 10/30/24 10:03 Labs: Laboratory Results - last 24 hr 10/30/24 10:03: WBC 8.9, RBC 4.65, Hgb 14.4, Hct 43.4, MCV 93.3, MCH 31.0, MCHC 33.2, RDW Std Deviation 48.4 H, RDW Coeff of May 14.3, Plt Count 304, MPV 9.5, Immature Gran % (Auto) 0.300, Neut % (Auto) 77.6 H, Lymph % (Auto) 13.9 L, [place] % (Auto) 7.0, Eos % (Auto) 0.8, Baso % (Auto) 0.4, Absolute Neuts (auto) 6.9, Absolute Lymphs (auto) 1.24, Nucleated RBC % 0, Sodium 140, Potassium 4.1, Chloride 101, Carbon Dioxide 26.7, Anion Gap 12, BUN 12, Creatinine 0.83, Estim Creat Clear Calc 65.35, Est GFR (MDRD) Non-Af 84, BUN/Creatinine Ratio 13.9, Glucose 151 H, Calcium 10.0 Imaging Radiology Impression Lumbar Spine X-Ray 10/30/24 09:42 IMPRESSION: ADVANCED DEGENERATIVE CHANGES OF THE LUMBAR SPINE. Minimal loss of height of the superior endplate of the L1 vertebrae. Reading Location: [facility] Assessment & Plan Assessment/Plan (1) Fall from slip, trip, or stumble: (2) Acute exacerbation of chronic low back pain: (3) Debility: PLAN: Plan #Debility with failure to thrive Patient admitted with a complaint of weakness and mechanical falls with failure to thrive. Was recently admitted for similar complaints but opted to go home instead of to the assisted. Lumbar spine x-ray showed no fracture Admit to MedSurg and observation. PT OT consult. Fall precautions. Will benefit from placement. #Chronic pain syndrome due to lumbar stenosis Continue patient's home pain meds. Follows with pain management on outpatient basis. #Type 2 diabetes mellitus: On insulin sliding scale. Accu-Cheks ACHS. 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 Patient elects to be full code. Total [id number] time 16 minutes. Charges/Coding Visit Charges Inpatient E&M: 53969 Init Hosp L2 Procedures Hospitalists Procedures: 16410 Advncd Care Plan 30 Min
[2024-10-30 12:18] VITALS: BP 122/110; PULSE 79; RESP 16; O2SAT 95
--- NOTE | 2024-10-30 12:48 | CASEMGMT ---
Care Management Face to Face with patient for initial transition planning/care coordination assessment in the ED. This typewriters functional tester introduced self and role at [facility]. Patient alert and oriented. Patient willing to participate in assessment and is able to answer all questions appropriately. Care providers, pharmacy, and demographics verified. Admitting Diagnosis: Debility, Acute exacerbation of chronic low back pain Other diagnosis history: Failure to thrive, Diabetes mellitus type II, Seizure disorder, Gout PCP: Ruth Specialists: Normai, pain management. [facility]erred Pharmacy: [facility] Insurance: [facility] [facility] Medicare Prescription Benefit: yes Living Will/HPOA: believes it to be son, Franklin, but none are on file. LNOK: , Radha, and 2 sons (Franklin and Benedict) Living Arrangements: currently lives alone ( was hospitalized 3 and then went to SNF near [place]). 4-5 steps to enter the double-wide mobile home. Per previous conversation with granddaughter, Ana, patient is unable to walk up and down the steps on own despite there being a handrail. Transportation: patient states drives DME: grab bars, glucometer and testing strips (though patient may need more as patient stated using a lot of the testing strips) HHC: RN 2x per week, but unknown who they are set up through SNF/Rehab: none Community Resources: none Patient goals: Patient wishes to discharge to a SNF; the same one as my . Patient denies any further needs or concerns at this time. Disposition Plan: admission to acute; RN CM/SW to follow for discharge planning needs that may arise. Brook oCy, INTERACTIVE PRODUCER, SORTER OPERATOR
[2024-10-30] MEDS: Metoclopramide 10 MG/2 ML Vial 2.5 MG IV (13:08)
--- NOTE | 2024-10-30 15:00 | CM.ED ---
Social work Called patient's son, Jim, (ph: [phone]) with patient's permission to inform Jim of patient's presentation to [facility] ED and admission to acute. Jim was also informed of patient's desire to be sent to the same SNF as patient's , [facility], due to patient's statement that patient could not take care of self at home alone. Jim thanked for the update and stated being in [place] currently, but coming to [place] this week. CHANI received a voicemail about 1400 from Natalie Wyatt, stating Natalie was patient's daughter in law. Natalie provided identifying information for patient and asked if going to the same SNF as patient's would still be possible due to patient refusing last time patient was admitted. SW returned call to Natalie and had to leave another voicemail stating the same process would be followed by acute SWs and that this SW would express patient's desire to be placed at [facility] in [place] where patient's is currently. No return call received. Brook Coy, MILLER HEAD ASSISTANT WET PROCESS, PIPE COREMAKER
[2024-10-30 15:08] VITALS: BMI 27.3
[2024-10-30] MEDS: oxyCODONE 5 MG Tablet PO (15:54)
[2024-10-30 17:24] LABS: Bedside Glucose 147 mg/dL (74-106)
[2024-10-30] MEDS: 0.9% Saline Lock 10 ML Syringe IV (20:52)
[2024-10-30 20:56] VITALS: BP 153/95; PULSE 106; RESP 18; TEMP 37; O2SAT 94
[2024-10-30] MEDS: Amitriptyline 25 MG Tablet PO (21:13)
[2024-10-30] MEDS: Tamsulosin HCl 0.4 MG Capsule PO (21:13)
[2024-10-30] MEDS: levETIRAcetam 500 MG Tablet PO (21:13)
[2024-10-30] MEDS: Rivaroxaban 20 MG Tablet PO (21:13)
[2024-10-30] MEDS: LINAGLIPTIN 5 MG TABLET PO (21:13)
[2024-10-30] MEDS: Atorvastatin Calcium 20 MG Tablet PO (21:19)
[2024-10-30] MEDS: Insulin Lispro 100 UNIT/ML INSULN.PEN SC (21:22)
[2024-10-30] MEDS: oxyCODONE HCl Cr 10 MG Tablet 20 MG PO (21:27)
[2024-10-30 22:01] LABS: Bedside Glucose 166 mg/dL (74-106)
[2024-10-30] MEDS: hydrOXYzine PAM 25 MG Capsule PO (22:51)
[2024-10-31 06:20] VITALS: BP 148/84; PULSE 101; RESP 16; TEMP 36.6; O2SAT 95
[2024-10-31 06:39] LABS: Bedside Glucose 145 mg/dL (74-106)
[2024-10-31 07:17] LABS: Absolute Lymphocyte Count 1.41 X10^3/uL (0.83-4.51); Absolute Neutrophil Count 7.8 X10^3/uL (2.0-7.7); Basophil# 0.03 X10^3/uL; Basophil% 0.3 % (0-1); Eosinophil# 0.03 X10^3/uL; Eosinophils% 0.3 % (0-5); Hematocrit 40.4 % (40-54); Hemoglobin 13.1 g/dL (13.0-16.5); Lymphocyte # 1.41 X10^3/ul (0.83-4.51); Lymphocyte % 14.3 % (19-41); Mean Corp Hgb Conc 32.4 g/dL (32-36); Mean Corpuscular Hgb 30.6 pg (27.0-32.0); Mean Corpuscular Volume 94.4 fL (80-94); Mean Platelet Vol. 9.9 fl (6.2-12.0); Monocyte# 0.56 X10^3/uL; Monocyte% 5.7 % (0-10); NRBC Flagged by Analyzer 0 % (0-5); Neutrophil # 7.82 X10^3/uL (2.7-7.7); Neutrophil % 79.1 % (47-70); Platelet Count 282 K/mm3 (150-450); RBC Distribution Width CV 14.6 % (11.6-14.6); RBC Distribution Width SD 49.5 fl (35.1-43.9); Red Blood Count 4.28 M/mm3 (4.6-6.2); White Blood Count 9.9 K/mm3 (4.4-11.0)
[2024-10-31 07:53] LABS: Anion Gap 14 (5-15); BUN 16 mg/dL (4-19); BUN/Creat Ratio 19.9 RATIO (10-20); Carbon Dioxide 22.5 mmol/L (21.0-32.0); Chloride 103 mmol/L (98-108); Creatinine, Serum 0.83 mg/dL (0.70-1.20); EST Glomerular Filtration Rate 84 (>60); Estimated Creatinine Clearance 60.34 ml/min (50-250); Glucose 145 mg/dL (70-99); Potassium 4.3 mmol/L (3.3-5.1); Sodium Level 139 mmol/L (133-145)
[2024-10-31] MEDS: Allopurinol 300 MG Tablet PO (08:29)
[2024-10-31] MEDS: 0.9% Saline Lock 10 ML Syringe IV (08:29)
[2024-10-31] MEDS: Ondansetron 4 MG/2 ML Vial IV (08:29)
[2024-10-31] MEDS: levETIRAcetam 500 MG Tablet PO ×2 (09:48→20:41)
[2024-10-31] MEDS: LINAGLIPTIN 5 MG TABLET PO (09:48)
--- NOTE | 2024-10-31 10:01 | CASEMGMT ---
Social Work SW received handoff from ED SW. Pt know to this SW from previous visit. Per ED SW, pt is now requesting SNF placement at [facility]F where his is currently residing. SW met with pt and introduced self and role of SW. Pt confirms that he does not feel he can return home alone and care for himself. Pt requesting to discharge to [facility] with his . List of SNF provider options not needed at this time. Per physician, pt is ready for dc when SW can arrange placement. Phone call to therapy requesting pt be evaluated for SNF placement. DC fitter's assistant updated and requested initial referral be sent to [facility]. Plan: [facility] SNF, pt will need IZZY Daly
--- NOTE | 2024-10-31 10:35 | CASEMGMT ---
Social Work PASRR completed in [facility] for SNF admission. Pt will require a level II determination by the [place] Department of Developmental Disability due to Seizure Disorder. Needed paperwork submitted in [facility]. Pt will need to remain in the hospital until Level II determination is completed. IZZY Peoples
[2024-10-31] MEDS: oxyCODONE HCl Cr 10 MG Tablet 20 MG PO ×2 (10:45→20:40)
--- NOTE | 2024-10-31 10:48 | CASEMGMT ---
Addendum entered by Inge El 10/31/24 11:23: [facility] has accepted. SW updated. Inge El DC Planning Asst. Original Note: Discharge Planning Referral sent to [facility]. Inge El DC Planning Asst.
--- NOTE | 2024-10-31 11:59 | PN_ITS ---
Subjective Subjective Patient seen and examined. He complained of a headache today. He had no other complaints. He is awaiting placement. Review of symptoms otherwise negative. Management hemodynamically stable. Objective Data Objective Data Vital Signs: Vital Signs Temp Pulse Resp BP Pulse Ox O2 Del Method 97.8 F 101 H 16 148/84 H 95 Room Air 10/31/24 06:20 10/31/24 06:20 10/31/24 06:20 10/31/24 06:20 10/31/24 06:20 10/31/24 06:20 Oxygen Delivery Method Room Air Weight: 185 lb Body Mass Index (BMI) 27.3 Intake & Output: Intake and Output for Last 24 Hours 10/29/24 10/30/24 10/31/24 23:59 23:59 23:59 Intake Total 740 / 890 150 / 150 Output Total 0 / 0 Balance 740 / 890 150 / 150 Lab / Micro Data 10/31/24 06:50 10/31/24 06:50 Labs: Laboratory Results - last 24 hr 10/30/24 17:06: POC Glucose 147 H 10/30/24 21:17: POC Glucose 166 H 10/31/24 06:08: POC Glucose 145 H 10/31/24 06:50: WBC 9.9, RBC 4.28 L, Hgb 13.1, Hct 40.4, MCV 94.4 H, MCH 30.6, MCHC 32.4, RDW Std Deviation 49.5 H, RDW Coeff of May 14.6, Plt Count 282, MPV 9.9, Immature Gran % (Auto) 0.300, Neut % (Auto) 79.1 H, Lymph % (Auto) 14.3 L, [place] % (Auto) 5.7, Eos % (Auto) 0.3, Baso % (Auto) 0.3, Absolute Neuts (auto) 7.8 H, Absolute Lymphs (auto) 1.41, Nucleated RBC % 0, Sodium 139, Potassium 4.3, Chloride 103, Carbon Dioxide 22.5, Anion Gap 14, BUN 16, Creatinine 0.83, Estim Creat Clear Calc 60.34, Est GFR (MDRD) Non-Af 84, BUN/Creatinine Ratio 19.9, Glucose 145 H, Calcium 9.0 Physical Exam Const alert and oriented x3 Constitutional Narrative: frail, weak General Appearance: cooperative Orientation / Consciousness: lethargic HEENT normocephalic, head/scalp atraumatic, moist oral mucous membranes and oropharynx normal Eyes PERRL, EOMs intact bilaterally and conjunctivae normal Neck no lymphadenopathy, supple and no JVD Lymph Lymphatic: no lymphadenopathy noted and no lymphedema noted Resp normal respiratory effort, normal air movement, no use of accessory muscles and clear to auscultation bilaterally Cardio regular rate, regular rhythm, S1 normal heart sound, S2 normal heart sound and no murmurs GI normal to inspection, nondistended, normoactive bowel sounds, soft to palpation, non-tender and non-distended Extremity normal to inspection, full ROM, normal capillary refill and no clubbing, cyanosis or edema General Extremity: no tenderness to palpation of joints or extremities Skin General Skin Exam: no breakdown Neuro oriented x3, CN's II-XII intact bilaterally, moves all extremities and no focal motor deficits Sensorium / Orientation: awake and alert Motor Exam: strength 5/5 throughout Psych Psych Narrative: flat affect Assessment & Plan Assessment/Plan (1) Fall from slip, trip, or stumble: (2) Acute exacerbation of chronic low back pain: (3) Debility: PLAN: Plan #Debility with failure to thrive * Patient admitted with a complaint of weakness and mechanical falls with failure to thrive. * Was recently admitted for similar complaints but opted to go home instead of to the long-term. * Lumbar spine x-ray showed no fracture * Admit to MedSurg and observation. * PT OT consult. Fall precautions. Will benefit from placement. #Chronic pain syndrome due to lumbar stenosis * Continue patient's home pain meds. Follows with pain management on outpatient basis. * Lumbar spine xray showed minimal loss of height of the superior endplate of the L1 vertebrae. #Type 2 diabetes mellitus: On insulin sliding scale. Accu-Cheks ACHS. 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
[2024-10-31 13:24] LABS: Bedside Glucose 143 mg/dL (74-106)
[2024-10-31] MEDS: Rivaroxaban 20 MG Tablet PO (17:01)
[2024-10-31] MEDS: Tamsulosin HCl 0.4 MG Capsule PO (17:01)
[2024-10-31 17:05] LABS: Bedside Glucose 107 mg/dL (74-106)
--- NOTE | 2024-10-31 19:59 | CASEMGMT ---
Social work Patient's granddaughter, Ana, called this SW on the ED phone stating desire to have an update on patient's care. This SW stated ability to pass along Ana's message to acute SW team and provided call back number (ph: [phone]). Ana is not listed as a contact for patient, but the last time patient was in the ED, Ana was heavily involved and patient was agreeable to it. 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 Brook Coy, GEOPHYSICAL PROSPECTING SURVEYOR, DECORATOR MANNEQUIN
[2024-10-31] MEDS: Acetaminophen 325 MG Tablet 650 MG PO (20:40)
[2024-10-31] MEDS: hydrOXYzine PAM 25 MG Capsule PO (20:41)
[2024-10-31] MEDS: Amitriptyline 25 MG Tablet PO (20:41)
[2024-10-31] MEDS: Atorvastatin Calcium 20 MG Tablet PO (20:41)
[2024-10-31 20:46] VITALS: BP 102/62; PULSE 102; RESP 16; TEMP 36.4; O2SAT 94
[2024-10-31 21:26] LABS: Bedside Glucose 121 mg/dL (74-106)
[2024-11-01] MEDS: Acetaminophen 325 MG Tablet 650 MG PO ×2 (05:59→16:27)
[2024-11-01 06:07] VITALS: BP 98/54; PULSE 85; RESP 16; TEMP 36.7; O2SAT 94
[2024-11-01 06:23] LABS: Absolute Lymphocyte Count 2.42 X10^3/uL (0.83-4.51); Absolute Neutrophil Count 4.7 X10^3/uL (2.0-7.7); Basophil# 0.05 X10^3/uL; Basophil% 0.6 % (0-1); Eosinophil# 0.22 X10^3/uL; Eosinophils% 2.7 % (0-5); Hematocrit 36.1 % (40-54); Hemoglobin 11.5 g/dL (13.0-16.5); Lymphocyte # 2.42 X10^3/ul (0.83-4.51); Lymphocyte % 30.1 % (19-41); Mean Corp Hgb Conc 31.9 g/dL (32-36); Mean Corpuscular Hgb 30.6 pg (27.0-32.0); Mean Platelet Vol. 10.3 fl (6.2-12.0); Monocyte% 7.5 % (0-10); NRBC Flagged by Analyzer 0 % (0-5); Neutrophil # 4.74 X10^3/uL (2.7-7.7); Neutrophil % 58.9 % (47-70); Platelet Count 241 K/mm3 (150-450); RBC Distribution Width CV 14.5 % (11.6-14.6); RBC Distribution Width SD 50.4 fl (35.1-43.9); Red Blood Count 3.76 M/mm3 (4.6-6.2); White Blood Count 8.1 K/mm3 (4.4-11.0)
[2024-11-01 06:33] LABS: Anion Gap 9 (5-15); BUN 29 mg/dL (4-19); BUN/Creat Ratio 26.5 RATIO (10-20); Calcium,Total 8.8 mg/dL (7.6-11.0); Carbon Dioxide 25.5 mmol/L (21.0-32.0); Chloride 104 mmol/L (98-108); EST Glomerular Filtration Rate 64 (>60); Estimated Creatinine Clearance 45.53 ml/min (50-250); Glucose 111 mg/dL (70-99); Potassium 4.1 mmol/L (3.3-5.1); Sodium Level 139 mmol/L (133-145)
[2024-11-01 07:04] LABS: Bedside Glucose 121 mg/dL (74-106)
[2024-11-01 08:00] VITALS: BP 110/63; PULSE 83; RESP 16; TEMP 36.3; O2SAT 96
[2024-11-01 09:55] LABS: Bacteria 0 SEEN /hpf (None Seen); Red Blood Cells-Urine 0 SEEN /hpf (0-5); Squamous Epithelial Cells - UA 0 SEEN /hpf (0-5)
[2024-11-01 10:01] LABS: Color, Urine Yellow (Yellow); Glucose, Dipstick Normal (Normal); Ketone-Dipstick 5 mg/dl (Negative); Leukocyte Esterase-Dipstick 25 /ul (Negative); Nitrite-Dipstick Negative (Negative); Occult Blood-Urine Negative /ul (Negative); Urine Clarity Clear (Clear); Urine Urobilinogen 4 mg/dl (Normal)
[2024-11-01 10:07] LABS: Urine Bilirubin Dipstick 3 mg/dL (Negative)
[2024-11-01] MEDS: LINAGLIPTIN 5 MG TABLET PO (10:09)
[2024-11-01] MEDS: levETIRAcetam 500 MG Tablet PO ×2 (10:09→21:57)
[2024-11-01] MEDS: Allopurinol 300 MG Tablet PO (10:11)
[2024-11-01] MEDS: oxyCODONE HCl Cr 10 MG Tablet 20 MG PO ×2 (10:12→21:57)
[2024-11-01 10:26] LABS: Protein, Urine (Random) 37.2 mg/dL (0.0-12.0)
[2024-11-01 10:27] LABS: Calcium Oxalate Crystals Ur 1+ /hpf (<or=2+); Mucous, Urine 1+ /hpf (<or=2+); White Blood Cells 0-5 SEEN /hpf (0-5)
[2024-11-01 10:28] LABS: Coarse Granular Cast 0-5 SEEN /lpf (0-5 /lpf); Hyaline Cast 25-50 SEEN /lpf (0-5)
--- NOTE | 2024-11-01 11:00 | PN_ITS ---
Subjective Subjective Patient seen and examined. He had no complaint labs otherwise negative. He is awaiting placement. Objective Data Objective Data Vital Signs: Vital Signs Temp Pulse Resp BP Pulse Ox O2 Del Method 97.4 F L 83 16 110/63 96 Room Air 11/01/24 08:00 11/01/24 08:00 11/01/24 08:00 11/01/24 08:00 11/01/24 08:00 11/01/24 08:00 Oxygen Delivery Method Room Air Weight: 185 lb Body Mass Index (BMI) 27.3 Intake & Output: Intake and Output for Last 24 Hours 10/30/24 10/31/24 11/01/24 23:59 23:59 23:59 Intake Total 740 / 890 150 / 150 Output Total 0 / 0 Balance 740 / 890 150 / 150 Lab / Micro Data 11/01/24 05:15 11/01/24 05:15 Labs: Laboratory Results - last 24 hr 10/30/24 09:45: Urine Color Yellow, Urine Clarity Clear, Urine pH 6.0, Ur Specific [place] 1.020, Urine Protein TNP, Urine Glucose (UA) Normal, Urine Ketones 5 H, Urine Occult Blood Negative, Urine Nitrite Negative, Urine Bilirubin 3 H, Urine Urobilinogen 4 H, Ur Leukocyte Esterase 25 H, Urine RBC 0 SEEN, Urine WBC 0-5 SEEN, Ur Squamous Epith Cells 0 SEEN, Calcium Oxalate Crystal 1+, Urine Bacteria 0 SEEN, Hyaline Casts 25-50 SEEN, Coarse Granular Casts 0-5 SEEN, Urine Mucus 1+ 10/31/24 13:05: POC Glucose 143 H 10/31/24 16:46: POC Glucose 107 H 10/31/24 20:28: POC Glucose 121 H 11/01/24 05:15: WBC 8.1, RBC 3.76 L, Hgb 11.5 L, Hct 36.1 L, MCV 96.0 H, MCH 30.6, MCHC 31.9 L, RDW Std Deviation 50.4 H, RDW Coeff of May 14.5, Plt Count 241, MPV 10.3, Immature Gran % (Auto) 0.200, Neut % (Auto) 58.9, Lymph % (Auto) 30.1, [place] % (Auto) 7.5, Eos % (Auto) 2.7, Baso % (Auto) 0.6, Absolute Neuts (auto) 4.7, Absolute Lymphs (auto) 2.42, Nucleated RBC % 0, Sodium 139, Potassium 4.1, Chloride 104, Carbon Dioxide 25.5, Anion Gap 9, BUN 29 H, Creatinine 1.10, Estim Creat Clear Calc 45.53 L, Est GFR (MDRD) Non-Af 64, B UN/Creatinine Ratio 26.5 H, Glucose 111 H, Calcium 8.8 11/01/24 06:03: POC Glucose 121 H 11/01/24 09:45: U Random Total Protein 37.2 H Physical Exam Const alert and oriented x3 Constitutional Narrative: frail, weak General Appearance: cooperative HEENT normocephalic, head/scalp atraumatic, moist oral mucous membranes and oropharynx normal Eyes PERRL, EOMs intact bilaterally and conjunctivae normal Neck no lymphadenopathy, supple and no JVD Lymph Lymphatic: no lymphadenopathy noted and no lymphedema noted Resp normal respiratory effort, normal air movement, no use of accessory muscles and clear to auscultation bilaterally Cardio regular rate, regular rhythm, S1 normal heart sound, S2 normal heart sound and no murmurs GI normal to inspection, nondistended, normoactive bowel sounds, soft to palpation, non-tender and non-distended Extremity normal to inspection, full ROM, normal capillary refill and no clubbing, cyanosis or edema General Extremity: no tenderness to palpation of joints or extremities Skin General Skin Exam: no breakdown Neuro oriented x3, CN's II-XII intact bilaterally, moves all extremities and no focal motor deficits Sensorium / Orientation: awake and alert Motor Exam: strength 5/5 throughout Psych thought process normal and cooperative Psych Narrative: flat affect Mood & Affect: flat affect Assessment & Plan Assessment/Plan (1) Fall from slip, trip, or stumble: (2) Acute exacerbation of chronic low back pain: (3) Debility: PLAN: Plan #Debility with failure to thrive * Patient admitted with a complaint of weakness and mechanical falls with failure to thrive. * Was recently admitted for similar complaints but opted to go home instead of to the longterm. * Lumbar spine x-ray showed no fracture * PT OT on board. Fall precautions. Will benefit from placement. #Chronic pain syndrome due to lumbar stenosis * Continue patient's home pain meds. * Follows with pain management on outpatient basis. * Lumbar spine xray showed minimal loss of height of the superior endplate of the L1 vertebrae. #Type 2 diabetes mellitus: On insulin sliding scale. Accu-Cheks ACHS. 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
--- NOTE | 2024-11-01 11:08 | CASEMGMT ---
Social Work- SW met with with pt to discuss discharge planning and contacts. Pt reports that he is planning to d/c to [facility] and is understanding that it may take a few days while awaiting PASRR determination. Pt reports that he has missed his of 64 years and reports that he sure loves that girl. SW verified contacts and inquired about adding granddaughter, Ana, to contacts. Pt is agreeable, stating that he just spoke with her. SW updated contacts. Plan: [facility]; pend level II IZZY Piña
[2024-11-01 11:17] LABS: Bedside Glucose 142 mg/dL (74-106)
--- NOTE | 2024-11-01 11:31 | CASEMGMT ---
Social Work SW met with pt and informed that [facility] is able to accept pt. SW also updated pt that PASRR level II determination will be needed prior to discharge. Pt expressing understanding. Plan: [facility], pending Level II determination and precert will be needed. IZZY Bueno
[2024-11-01 14:44] VITALS: BP 128/70; PULSE 87; RESP 14; TEMP 35.6; O2SAT 94
[2024-11-01] MEDS: Tamsulosin HCl 0.4 MG Capsule PO (16:19)
[2024-11-01 16:23] LABS: Bedside Glucose 133 mg/dL (74-106)
[2024-11-01] MEDS: oxyCODONE 5 MG Tablet PO (16:27)
[2024-11-01 20:18] VITALS: BP 105/63; PULSE 82; RESP 16; TEMP 36.4; O2SAT 96
[2024-11-01] MEDS: Amitriptyline 25 MG Tablet PO (21:57)
[2024-11-01] MEDS: 0.9% Saline Lock 10 ML Syringe IV (21:57)
[2024-11-01] MEDS: Atorvastatin Calcium 20 MG Tablet PO (21:57)
[2024-11-01] MEDS: hydrOXYzine PAM 25 MG Capsule PO (21:57)
[2024-11-01 22:02] VITALS: BP 133/77; PULSE 90; RESP 16; TEMP 36.4; O2SAT 94
[2024-11-01 22:47] LABS: Bedside Glucose 147 mg/dL (74-106)
[2024-11-02] VITALS (9 sets, daily range): BP systolic 96–150; BP diastolic 51–94; PULSE 80–107; RESP 15–18; TEMP 36.4–36.6; O2SAT 94–97
[2024-11-02 06:15] LABS: Absolute Lymphocyte Count 1.72 X10^3/uL (0.83-4.51); Basophil# 0.05 X10^3/uL; Basophil% 0.8 % (0-1); Eosinophil# 0.28 X10^3/uL; Eosinophils% 4.3 % (0-5); Hematocrit 36.2 % (40-54); Hemoglobin 11.6 g/dL (13.0-16.5); Lymphocyte # 1.72 X10^3/ul (0.83-4.51); Lymphocyte % 26.7 % (19-41); Mean Corpuscular Hgb 30.6 pg (27.0-32.0); Mean Corpuscular Volume 95.5 fL (80-94); Monocyte# 0.38 X10^3/uL; Monocyte% 5.9 % (0-10); NRBC Flagged by Analyzer 0 % (0-5); Neutrophil # 4.01 X10^3/uL (2.7-7.7); Neutrophil % 62.1 % (47-70); Platelet Count 236 K/mm3 (150-450); RBC Distribution Width CV 14.3 % (11.6-14.6); RBC Distribution Width SD 50.1 fl (35.1-43.9); Red Blood Count 3.79 M/mm3 (4.6-6.2); White Blood Count 6.5 K/mm3 (4.4-11.0)
[2024-11-02 06:58] LABS: Bedside Glucose 136 mg/dL (74-106)
[2024-11-02 07:14] LABS: Anion Gap 10 (5-15); BUN 24 mg/dL (4-19); BUN/Creat Ratio 25.5 RATIO (10-20); Calcium,Total 8.8 mg/dL (7.6-11.0); Carbon Dioxide 23.3 mmol/L (21.0-32.0); Chloride 103 mmol/L (98-108); Creatinine, Serum 0.94 mg/dL (0.70-1.20); EST Glomerular Filtration Rate 78 (>60); Estimated Creatinine Clearance 53.28 ml/min (50-250); Glucose 132 mg/dL (70-99); Potassium 4.1 mmol/L (3.3-5.1); Sodium Level 136 mmol/L (133-145)
[2024-11-02] MEDS: Allopurinol 300 MG Tablet PO (08:18)
[2024-11-02] MEDS: levETIRAcetam 500 MG Tablet PO ×2 (09:39→22:35)
[2024-11-02] MEDS: LINAGLIPTIN 5 MG TABLET PO (09:40)
[2024-11-02] MEDS: oxyCODONE HCl Cr 10 MG Tablet 20 MG PO ×2 (09:40→19:46)
--- NOTE | 2024-11-02 11:42 | PN_ITS ---
Subjective Subjective Patient seen and examined. He had no active complaints. He was noted to be a bit tachycardic this morning that was thought to be due to the fact that he was in pain at that time. Review of systems otherwise negative. He is awaiting placement. Objective Data Objective Data Vital Signs: Vital Signs Temp Pulse Resp BP Pulse Ox O2 Del Method 97.5 F L 101 H 18 116/77 97 Room Air 11/02/24 07:42 11/02/24 07:42 11/02/24 07:42 11/02/24 07:42 11/02/24 07:42 11/02/24 08:11 Oxygen Delivery Method Room Air Weight: 185 lb Body Mass Index (BMI) 27.3 Intake & Output: Intake and Output for Last 24 Hours 10/31/24 11/01/24 11/02/24 23:59 23:59 23:59 Intake Total 150 / 150 200 / 200 Output Total 0 / 0 Balance 150 / 150 200 / 200 Lab / Micro Data 11/02/24 05:45 11/02/24 05:45 Labs: Laboratory Results - last 24 hr 11/01/24 16:00: POC Glucose 133 H 11/01/24 22:00: POC Glucose 147 H 11/02/24 05:45: WBC 6.5, RBC 3.79 L, Hgb 11.6 L, Hct 36.2 L, MCV 95.5 H, MCH 30.6, MCHC 32.0, RDW Std Deviation 50.1 H, RDW Coeff of May 14.3, Plt Count 236, MPV 10.0, Immature Gran % (Auto) 0.200, Neut % (Auto) 62.1, Lymph % (Auto) 26.7, [place] % (Auto) 5.9, Eos % (Auto) 4.3, Baso % (Auto) 0.8, Absolute Neuts (auto) 4.0, Absolute Lymphs (auto) 1.72, Nucleated RBC % 0, Sodium 136, Potassium 4.1, Chloride 103, Carbon Dioxide 23.3, Anion Gap 10, BUN 24 H, Creatinine 0.94, Estim Creat Clear Calc 53.28, Est GFR (MDRD) Non-Af 78, BUN/Creatinine Ratio 25.5 H, Glucose 132 H, Calcium 8.8 11/02/24 06:26: POC Glucose 136 H Physical Exam Const alert and oriented x3 Constitutional Narrative: frail, weak General Appearance: cooperative Orientation / Consciousness: lethargic HEENT normocephalic, head/scalp atraumatic, moist oral mucous membranes and oropharynx normal Eyes PERRL, EOMs intact bilaterally and conjunctivae normal Neck no lymphadenopathy, supple and no JVD Lymph Lymphatic: no lymphadenopathy noted and no lymphedema noted Resp normal respiratory effort, normal air movement, no use of accessory muscles and clear to auscultation bilaterally Cardio regular rate, regular rhythm, S1 normal heart sound, S2 normal heart sound and no murmurs GI normal to inspection, nondistended, normoactive bowel sounds, soft to palpation, non-tender and non-distended Extremity normal to inspection, full ROM, normal capillary refill and no clubbing, cyanosis or edema General Extremity: no tenderness to palpation of joints or extremities Skin General Skin Exam: no breakdown Neuro oriented x3, CN's II-XII intact bilaterally, moves all extremities and no focal motor deficits Sensorium / Orientation: awake and alert Motor Exam: strength 5/5 throughout Psych thought process normal, cooperative and affect normal Psych Narrative: flat affect Mood & Affect: flat affect Assessment & Plan Assessment/Plan (1) Fall from slip, trip, or stumble: (2) Acute exacerbation of chronic low back pain: (3) Debility: PLAN: Plan #Debility with failure to thrive * Patient admitted with a complaint of weakness and mechanical falls with failure to thrive. * Was recently admitted for similar complaints but opted to go home instead of to the prison. * Lumbar spine x-ray showed no fracture * PT OT on board. Fall precautions. Will benefit from placement. #Chronic pain syndrome due to lumbar stenosis * On oxycodone as needed for pain as well as p.o. Tylenol * Follows with pain management on outpatient basis. * Lumbar spine xray showed minimal loss of height of the superior endplate of the L1 vertebrae. #Type 2 diabetes mellitus: On insulin sliding scale. Accu-Cheks ACHS. 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
[2024-11-02 11:47] LABS: Bedside Glucose 135 mg/dL (74-106)
--- NOTE | 2024-11-02 13:54 | CASEMGMT ---
Social Work- SW checked [facility] system on determination status. No determination made at this time. SW remains available to follow. Plan: [facility]; pend level 2 IZZY Piña
--- NOTE | 2024-11-02 15:51 | EKG12_ITS ---
Test Reason : ARRYTH Blood Pressure : */* mmHG Vent. Rate : 96 BPM Atrial Rate : 96 BPM P-R Int : 214 ms QRS Dur : 110 ms QT Int : 372 ms P-R-T Axes : 46 39 43 degrees QTcB Int : 469 ms Sinus rhythm with 1st degree A-V block Otherwise normal ECG No previous ECGs available Confirmed by OTTO MICHEL, JOHN ([id number]), image editor SIM MILES ([id number]) on 11/05/2024 10:43:58 AM Referred By: Confirmed By: JOHN MENJIVAR MD
[2024-11-02 16:41] LABS: Bedside Glucose 161 mg/dL (74-106)
[2024-11-02] MEDS: Insulin Lispro 100 UNIT/ML INSULN.PEN SC (16:51)
[2024-11-02] MEDS: Metoprolol Tartrate 25 MG Tablet 12.5 MG PO (16:54)
[2024-11-02] MEDS: Tamsulosin HCl 0.4 MG Capsule PO (16:54)
[2024-11-02 18:32] LABS: D-Dimer Quantitative (DVT/PE) 1.28 FEU/ug/m (0.27-0.49)
--- NOTE | 2024-11-02 18:55 | CT_ITS ---
PROCEDURE: CTA CHEST W/WO CONTRAST 11/02/2024 REASON FOR EXAM: ELEVATED D-DIMER TECHNIQUE: CTA axial imaging of the chest with intravenous contrast. Coronal and Sagittal reconstruction series were provided. 3D, 3D post processing, 3D reconstructions, Maximum intensity projection (MIPs) Volume rendering and Shaded surface rendering was provided. PATIENT PREPARATION: Per protocol One or more dose reduction techniques were used (e.g., Automated exposure control, adjustment of the mA and/or kV according to patient size, use of iterative reconstruction technique). FINDINGS: Hardware: None Lymph nodes: Unremarkable. Heart: No cardiomegaly. RV/LV Diameter Ratio: 0.8 Thoracic Aorta: No thoracic aortic aneurysm or dissection. Pulmonary Vessels: Main pulmonary arteries are enlarged consistent with pulmonary arterial hypertension. No filling defect to suggest pulmonary embolism. Most Proximal Level of Embolus (if embolus present): Lungs and Airways: The lungs are normally expanded and clear. Pleura: No pleural effusion. No pneumothorax. Upper Abdomen: Visualized portions of the upper abdominal viscera are unremarkable. Bones: Bone windows are unremarkable. Elevated left hemidiaphragm with some left lower lobe atelectasis. CT/CTA Chest W/WO Contrast IMPRESSION: NORMAL CHEST CTA. NO EVIDENCE OF ACUTE PULMONARY EMBOLISM. Reading Location: [id number]
[2024-11-02] MEDS: Acetaminophen 325 MG Tablet 650 MG PO (19:46)
[2024-11-02] MEDS: Amitriptyline 25 MG Tablet PO (22:35)
[2024-11-02] MEDS: Atorvastatin Calcium 20 MG Tablet PO (22:36)
[2024-11-02 23:40] LABS: Bedside Glucose 142 mg/dL (74-106)
[2024-11-03] VITALS (7 sets, daily range): BP systolic 104–136; BP diastolic 63–82; PULSE 87–108; RESP 16–18; TEMP 36.4–36.8; O2SAT 93–98; BMI 27.6
[2024-11-03] MEDS: oxyCODONE 5 MG Tablet PO ×3 (00:52→16:25)
[2024-11-03] MEDS: hydrOXYzine PAM 25 MG Capsule PO ×2 (00:53→20:58)
[2024-11-03 06:32] LABS: Absolute Lymphocyte Count 1.43 X10^3/uL (0.83-4.51); Absolute Neutrophil Count 3.9 X10^3/uL (2.0-7.7); Basophil# 0.04 X10^3/uL; Basophil% 0.6 % (0-1); Eosinophil# 0.35 X10^3/uL; Eosinophils% 5.6 % (0-5); Hematocrit 34.4 % (40-54); Lymphocyte # 1.43 X10^3/ul (0.83-4.51); Lymphocyte % 22.8 % (19-41); Mean Corpuscular Hgb 30.4 pg (27.0-32.0); Mean Platelet Vol. 10.1 fl (6.2-12.0); NRBC Flagged by Analyzer 0 % (0-5); Neutrophil # 3.93 X10^3/uL (2.7-7.7); Neutrophil % 62.7 % (47-70); Platelet Count 214 K/mm3 (150-450); RBC Distribution Width CV 14.2 % (11.6-14.6); RBC Distribution Width SD 49.2 fl (35.1-43.9); Red Blood Count 3.62 M/mm3 (4.6-6.2); White Blood Count 6.3 K/mm3 (4.4-11.0)
[2024-11-03 07:11] LABS: Bedside Glucose 140 mg/dL (74-106)
[2024-11-03 07:14] LABS: Anion Gap 10 (5-15); BUN 18 mg/dL (4-19); BUN/Creat Ratio 20.7 RATIO (10-20); Calcium,Total 8.7 mg/dL (7.6-11.0); Carbon Dioxide 24.5 mmol/L (21.0-32.0); Chloride 101 mmol/L (98-108); Creatinine, Serum 0.88 mg/dL (0.70-1.20); EST Glomerular Filtration Rate 82 (>60); Estimated Creatinine Clearance 61.51 ml/min (50-250); Glucose 140 mg/dL (70-99); Sodium Level 135 mmol/L (133-145)
[2024-11-03] MEDS: Acetaminophen 325 MG Tablet 650 MG PO ×2 (09:42→16:25)
[2024-11-03] MEDS: oxyCODONE HCl Cr 10 MG Tablet 20 MG PO ×2 (09:42→21:00)
[2024-11-03] MEDS: Metoprolol Tartrate 25 MG Tablet 12.5 MG PO ×2 (09:42→20:59)
[2024-11-03] MEDS: Allopurinol 300 MG Tablet PO (09:44)
[2024-11-03] MEDS: LINAGLIPTIN 5 MG TABLET PO (09:44)
[2024-11-03] MEDS: levETIRAcetam 500 MG Tablet PO ×2 (09:44→21:00)
[2024-11-03] MEDS: Enoxaparin 40 MG/0.4 ML Syringe SC (09:44)
[2024-11-03 11:59] LABS: Bedside Glucose 126 mg/dL (74-106)
--- NOTE | 2024-11-03 12:21 | PN_ITS ---
Subjective Subjective Patient seen and examined. He had no complaints. Review of systems otherwise negative. He still awaiting placement. Objective Data Objective Data Vital Signs: Vital Signs Temp Pulse Resp BP Pulse Ox O2 Del Method 98.3 F 95 18 111/68 96 Room Air 11/03/24 09:39 11/03/24 09:42 11/03/24 09:39 11/03/24 09:39 11/03/24 09:39 11/03/24 09:39 Oxygen Delivery Method Room Air Weight: 187 lb 6.287 oz Body Mass Index (BMI) 27.6 Intake & Output: Intake and Output for Last 24 Hours 11/01/24 11/02/24 11/03/24 23:59 23:59 23:59 Intake Total 200 / 500 500 / 500 Balance 200 / 500 500 / 500 Lab / Micro Data 11/03/24 06:10 11/03/24 06:10 Labs: Laboratory Results - last 24 hr 11/02/24 16:14: POC Glucose 161 H 11/02/24 18:05: D-Dimer Quant (PE/DVT) 1.28 H* 11/02/24 22:38: POC Glucose 142 H 11/03/24 06:10: WBC 6.3, RBC 3.62 L, Hgb 11.0 L, Hct 34.4 L, MCV 95.0 H, MCH 30.4, MCHC 32.0, RDW Std Deviation 49.2 H, RDW Coeff of May 14.2, Plt Count 214, MPV 10.1, Immature Gran % (Auto) 0.300, Neut % (Auto) 62.7, Lymph % (Auto) 22.8, [place] % (Auto) 8.0, Eos % (Auto) 5.6 H, Baso % (Auto) 0.6, Absolute Neuts (auto) 3.9, Absolute Lymphs (auto) 1.43, Nucleated RBC % 0, Sodium 135, Potassium 4.0, Chloride 101, Carbon Dioxide 24.5, Anion Gap 10, BUN 18, Creatinine 0.88, Estim Creat Clear Calc 61.51, Est GFR (MDRD) Non-Af 82, BUN/Creatinine Ratio 20.7 H, G lucose 140 H, Calcium 8.7 11/03/24 06:29: POC Glucose 140 H 11/03/24 11:39: POC Glucose 126 H Radiography Diagnostic Testing: Radiology Impression Chest CTA 11/02/24 18:55 IMPRESSION: NORMAL CHEST CTA. NO EVIDENCE OF ACUTE PULMONARY EMBOLISM. Reading Location: [facility] Physical Exam Const alert and oriented x3 Constitutional Narrative: frail, weak General Appearance: cooperative HEENT normocephalic, head/scalp atraumatic, moist oral mucous membranes and oropharynx normal Eyes PERRL, EOMs intact bilaterally and conjunctivae normal Neck no lymphadenopathy, supple and no JVD Lymph Lymphatic: no lymphadenopathy noted and no lymphedema noted Resp normal respiratory effort, normal air movement, no use of accessory muscles and clear to auscultation bilaterally Cardio regular rate, regular rhythm, S1 normal heart sound, S2 normal heart sound and no murmurs GI normal to inspection, nondistended, normoactive bowel sounds, soft to palpation, non-tender and non-distended Extremity normal to inspection, full ROM, normal capillary refill and no clubbing, cyanosis or edema General Extremity: no tenderness to palpation of joints or extremities Skin General Skin Exam: no breakdown Neuro oriented x3, CN's II-XII intact bilaterally, moves all extremities and no focal motor deficits Sensorium / Orientation: awake and alert Motor Exam: strength 5/5 throughout Psych thought process normal, cooperative and affect normal Appearance: appropriate Assessment & Plan Assessment/Plan (1) Fall from slip, trip, or stumble: (2) Acute exacerbation of chronic low back pain: (3) Debility: PLAN: Plan #Debility with failure to thrive * Patient admitted with a complaint of weakness and mechanical falls with failure to thrive. * Was recently admitted for similar complaints but opted to go home instead of to the halfway. * Lumbar spine x-ray showed no fracture * PT OT on board. Fall precautions. Will benefit from placement. #Chronic pain syndrome due to lumbar stenosis * On oxycodone as needed for pain as well as p.o. Tylenol * Follows with pain management on outpatient basis. * Lumbar spine xray showed minimal loss of height of the superior endplate of the L1 vertebrae. SInus tachycardia with first degree AV block * patient was tachycardic yesterday. D dimer was elevated at 1.28, but CTA chest was negative for PE * patient started on PO metoprolol 12.5mg bid. Heart rate is better controlled now * TSH was also normal at 1.39 on 10/16/2024. * #Type 2 diabetes mellitus: On insulin sliding scale. Accu-Cheks ACHS. 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
[2024-11-03 16:45] LABS: Bedside Glucose 140 mg/dL (74-106)
[2024-11-03] MEDS: Tamsulosin HCl 0.4 MG Capsule PO (17:17)
[2024-11-03] MEDS: Insulin Lispro 100 UNIT/ML INSULN.PEN SC (21:00)
[2024-11-03] MEDS: Atorvastatin Calcium 20 MG Tablet PO (21:00)
[2024-11-03] MEDS: Amitriptyline 25 MG Tablet PO (21:00)
[2024-11-03 21:23] LABS: Bedside Glucose 156 mg/dL (74-106)
[2024-11-04 03:22] VITALS: BP 129/79; PULSE 104; RESP 16; TEMP 36.6; O2SAT 98
[2024-11-04] MEDS: Acetaminophen 325 MG Tablet 650 MG PO ×2 (03:25→14:51)
[2024-11-04] MEDS: oxyCODONE 5 MG Tablet PO ×3 (03:27→14:51)
[2024-11-04 06:33] LABS: Absolute Lymphocyte Count 1.73 X10^3/uL (0.83-4.51); Basophil# 0.04 X10^3/uL; Basophil% 0.7 % (0-1); Eosinophil# 0.39 X10^3/uL; Hematocrit 35.1 % (40-54); Hemoglobin 11.1 g/dL (13.0-16.5); Lymphocyte # 1.73 X10^3/ul (0.83-4.51); Mean Corp Hgb Conc 31.6 g/dL (32-36); Mean Corpuscular Hgb 30.4 pg (27.0-32.0); Mean Corpuscular Volume 96.2 fL (80-94); Mean Platelet Vol. 10.5 fl (6.2-12.0); Monocyte# 0.45 X10^3/uL; Monocyte% 8.1 % (0-10); NRBC Flagged by Analyzer 0 % (0-5); Neutrophil # 2.95 X10^3/uL (2.7-7.7); Neutrophil % 52.8 % (47-70); Platelet Count 217 K/mm3 (150-450); RBC Distribution Width CV 14.2 % (11.6-14.6); RBC Distribution Width SD 50.1 fl (35.1-43.9); Red Blood Count 3.65 M/mm3 (4.6-6.2); White Blood Count 5.6 K/mm3 (4.4-11.0)
[2024-11-04 06:51] LABS: Anion Gap 8 (5-15); BUN 15 mg/dL (4-19); BUN/Creat Ratio 18.2 RATIO (10-20); Calcium,Total 8.7 mg/dL (7.6-11.0); Carbon Dioxide 25.2 mmol/L (21.0-32.0); Chloride 103 mmol/L (98-108); Creatinine, Serum 0.84 mg/dL (0.70-1.20); EST Glomerular Filtration Rate 83 (>60); Estimated Creatinine Clearance 64.44 ml/min (50-250); Glucose 134 mg/dL (70-99); Potassium 4.7 mmol/L (3.3-5.1); Sodium Level 137 mmol/L (133-145)
[2024-11-04 06:58] LABS: Bedside Glucose 134 mg/dL (74-106)
[2024-11-04 08:16] VITALS: BP 106/71; PULSE 94; RESP 16; TEMP 36.6; O2SAT 99
[2024-11-04 08:24] VITALS: PULSE 94
[2024-11-04] MEDS: Allopurinol 300 MG Tablet PO (08:24)
[2024-11-04] MEDS: Enoxaparin 40 MG/0.4 ML Syringe SC (08:24)
[2024-11-04] MEDS: oxyCODONE HCl Cr 10 MG Tablet 20 MG PO ×2 (08:24→21:21)
[2024-11-04] MEDS: Metoprolol Tartrate 25 MG Tablet 12.5 MG PO ×2 (08:24→20:59)
[2024-11-04] MEDS: levETIRAcetam 500 MG Tablet PO ×2 (08:24→20:59)
[2024-11-04] MEDS: LINAGLIPTIN 5 MG TABLET PO (08:24)
[2024-11-04] MEDS: Polyethylene Glycol 3350 17 GM PACKET PO (08:25)
--- NOTE | 2024-11-04 10:39 | PN_ITS ---
Subjective Subjective Patient seen and examined. He had no active complaints. Review of systems is otherwise negative. He has remained hemodynamically stable. He is still awaiting placement. Objective Data Objective Data Vital Signs: Vital Signs Temp Pulse Resp BP Pulse Ox O2 Del Method 97.9 F 94 16 106/71 99 Room Air 11/04/24 08:16 11/04/24 08:24 11/04/24 08:16 11/04/24 08:16 11/04/24 08:16 11/04/24 08:16 Oxygen Delivery Method Room Air Weight: 187 lb 6.287 oz Body Mass Index (BMI) 27.6 Intake & Output: Intake and Output for Last 24 Hours 11/02/24 11/03/24 11/04/24 23:59 23:59 23:59 Intake Total 200 / 500 500 / 700 350 / 350 Balance 200 / 500 500 / 700 350 / 350 Lab / Micro Data 11/04/24 06:01 11/04/24 06:01 Labs: Laboratory Results - last 24 hr 11/03/24 11:39: POC Glucose 126 H 11/03/24 16:20: POC Glucose 140 H 11/03/24 20:57: POC Glucose 156 H 11/04/24 06:01: WBC 5.6, RBC 3.65 L, Hgb 11.1 L, Hct 35.1 L, MCV 96.2 H, MCH 30.4, MCHC 31.6 L, RDW Std Deviation 50.1 H, RDW Coeff of May 14.2, Plt Count 217, MPV 10.5, Immature Gran % (Auto) 0.400, Neut % (Auto) 52.8, Lymph % (Auto) 31.0, [place] % (Auto) 8.1, Eos % (Auto) 7.0 H, Baso % (Auto) 0.7, Absolute Neuts (auto) 3.0, Absolute Lymphs (auto) 1.73, Nucleated RBC % 0, Sodium 137, Potassium 4.7, Chloride 103, Carbon Dioxide 25.2, Anion Gap 8, BUN 15, Creatinine 0.84, Estim Creat Clear Calc 64.44, Est GFR (MDRD) Non-Af 83, BUN/Creatinine Ratio 18.2, Glucose 134 H, Calcium 8.7 11/04/24 06:34: POC Glucose 134 H Physical Exam Const alert and oriented x3 Constitutional Narrative: frail, weak General Appearance: cooperative HEENT normocephalic, head/scalp atraumatic, moist oral mucous membranes and oropharynx normal Eyes PERRL, EOMs intact bilaterally and conjunctivae normal Neck no lymphadenopathy, supple and no JVD Lymph Lymphatic: no lymphadenopathy noted and no lymphedema noted Resp normal respiratory effort, normal air movement, no use of accessory muscles and clear to auscultation bilaterally Cardio regular rate, regular rhythm, S1 normal heart sound, S2 normal heart sound and no murmurs GI normal to inspection, nondistended, normoactive bowel sounds, soft to palpation, non-tender and non-distended Extremity normal to inspection, full ROM, normal capillary refill and no clubbing, cyanosis or edema General Extremity: no tenderness to palpation of joints or extremities Skin General Skin Exam: no breakdown Neuro oriented x3, CN's II-XII intact bilaterally, moves all extremities and no focal motor deficits Sensorium / Orientation: awake and alert Motor Exam: strength 5/5 throughout Psych thought process normal and cooperative Psych Narrative: flat affect Mood & Affect: flat affect Assessment & Plan Assessment/Plan (1) Fall from slip, trip, or stumble: (2) Acute exacerbation of chronic low back pain: (3) Debility: PLAN: Plan #Debility with failure to thrive * Patient admitted with a complaint of weakness and mechanical falls with failure to thrive. * Was recently admitted for similar complaints but opted to go home instead of to the prison. * Lumbar spine x-ray showed no fracture * PT OT on board. Fall precautions. Will benefit from placement. #Chronic pain syndrome due to lumbar stenosis * On oxycodone as needed for pain as well as p.o. Tylenol * Follows with pain management on outpatient basis. * Lumbar spine xray showed minimal loss of height of the superior endplate of the L1 vertebrae. SInus tachycardia with first degree AV block * Tachycardia has improved. * D dimer was elevated at 1.28, but CTA chest was negative for PE * patient on PO metoprolol 12.5mg bid. Heart rate is better controlled now * TSH was also normal at 1.39 on 10/16/2024. * #Type 2 diabetes mellitus: On insulin sliding scale. Accu-Cheks ACHS. 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
[2024-11-04 14:47] VITALS: BP 113/76; PULSE 103; RESP 16; TEMP 36.7; O2SAT 96
[2024-11-04 15:35] LABS: Bedside Glucose 126 mg/dL (74-106)
[2024-11-04 16:36] LABS: Bedside Glucose 134 mg/dL (74-106)
[2024-11-04] MEDS: Tamsulosin HCl 0.4 MG Capsule PO (17:33)
[2024-11-04 20:59] VITALS: PULSE 114
[2024-11-04] MEDS: Atorvastatin Calcium 20 MG Tablet PO (20:59)
[2024-11-04] MEDS: Amitriptyline 25 MG Tablet PO (21:03)
[2024-11-04 21:15] VITALS: BP 139/94; PULSE 117; RESP 16; TEMP 36.3; O2SAT 97
[2024-11-04] MEDS: hydrOXYzine PAM 25 MG Capsule PO (21:20)
[2024-11-04 21:46] LABS: Bedside Glucose 146 mg/dL (74-106)
[2024-11-05 03:31] VITALS: BP 101/52; PULSE 89; RESP 16; TEMP 36.4; O2SAT 97
[2024-11-05 06:19] LABS: Absolute Lymphocyte Count 1.46 X10^3/uL (0.83-4.51); Absolute Neutrophil Count 3.5 X10^3/uL (2.0-7.7); Basophil# 0.04 X10^3/uL; Basophil% 0.7 % (0-1); Eosinophil# 0.34 X10^3/uL; Eosinophils% 5.9 % (0-5); Hemoglobin 11.4 g/dL (13.0-16.5); Lymphocyte # 1.46 X10^3/ul (0.83-4.51); Lymphocyte % 25.1 % (19-41); Mean Corp Hgb Conc 32.6 g/dL (32-36); Mean Corpuscular Hgb 31.2 pg (27.0-32.0); Mean Corpuscular Volume 95.9 fL (80-94); Mean Platelet Vol. 9.9 fl (6.2-12.0); Monocyte# 0.42 X10^3/uL; Monocyte% 7.2 % (0-10); NRBC Flagged by Analyzer 0 % (0-5); Neutrophil # 3.54 X10^3/uL (2.7-7.7); Neutrophil % 60.9 % (47-70); Platelet Count 222 K/mm3 (150-450); RBC Distribution Width CV 14.2 % (11.6-14.6); RBC Distribution Width SD 49.6 fl (35.1-43.9); Red Blood Count 3.65 M/mm3 (4.6-6.2); White Blood Count 5.8 K/mm3 (4.4-11.0)
[2024-11-05 07:01] LABS: Bedside Glucose 128 mg/dL (74-106)
[2024-11-05 07:07] LABS: Anion Gap 8 (5-15); BUN 17 mg/dL (4-19); BUN/Creat Ratio 19.9 RATIO (10-20); Calcium,Total 8.8 mg/dL (7.6-11.0); Carbon Dioxide 24.9 mmol/L (21.0-32.0); Chloride 105 mmol/L (98-108); Creatinine, Serum 0.87 mg/dL (0.70-1.20); EST Glomerular Filtration Rate 83 (>60); Estimated Creatinine Clearance 62.22 ml/min (50-250); Glucose 135 mg/dL (70-99); Potassium 4.9 mmol/L (3.3-5.1); Sodium Level 138 mmol/L (133-145)
--- NOTE | 2024-11-05 07:22 | PN.HOSP_ITS ---
Reason for Visit Reason for Visit: Failure to thrive Subjective Subjective Patient presented due to having difficulty caring for himself at home. Had a mechanical fall and injury to his lower back and was recommended that time to go to prison facility however he refused. His is currently in a prison facility and he had been home alone. He follows with pain management and had been getting injections along with pain medications for his spinal stenosis. Vital signs on presentation were unremarkable. CBC and BMP were unremarkable. Images of the lumbar spine showed minimal loss of height in the superior endplate of L1 vertebrae and he was admitted to the medical floor for placement. Patient states at this point he is feeling okay other than having ongoing issues related to his low back pain. We explained that we are awaiting approval from the [facility] for PASRR related to his seizure disorder. He will be discharged to [facility] once approved by the [facility]. Objective Data Objective Data Vital Signs: Vital Signs Temp Pulse Resp BP Pulse Ox O2 Del Method 97.6 F L 89 16 101/52 L 97 Room Air 11/05/24 03:31 11/05/24 03:31 11/05/24 03:31 11/05/24 03:31 11/05/24 03:31 11/05/24 03:31 Oxygen Delivery Method Room Air Weight: 85 kg Body Mass Index (BMI) 27.6 Intake & Output: Intake and Output for Last 24 Hours 11/03/24 11/04/24 11/05/24 23:59 23:59 23:59 Intake Total 500 / 700 550 / 550 Balance 500 / 700 550 / 550 Lab / Micro Data 11/05/24 06:09 11/05/24 06:09 Labs: Laboratory Results - last 24 hr 11/04/24 11:25: POC Glucose 126 H 11/04/24 16:07: POC Glucose 134 H 11/04/24 21:23: POC Glucose 146 H 11/05/24 06:09: WBC 5.8, RBC 3.65 L, Hgb 11.4 L, Hct 35.0 L, MCV 95.9 H, MCH 31.2, MCHC 32.6, RDW Std Deviation 49.6 H, RDW Coeff of May 14.2, Plt Count 222, MPV 9.9, Immature Gran % (Auto) 0.200, Neut % (Auto) 60.9, Lymph % (Auto) 25.1, [place] % (Auto) 7.2, Eos % (Auto) 5.9 H, Baso % (Auto) 0.7, Absolute Neuts (auto) 3.5, Absolute Lymphs (auto) 1.46, Nucleated RBC % 0, Sodium 138, Potassium 4.9, Chloride 105, Carbon Dioxide 24.9, Anion Gap 8, BUN 17, Creatinine 0.87, Estim Creat Clear Calc 62.22, Est GFR (MDRD) Non-Af 83, BUN/Creatinine Ratio 19.9, G lucose 135 H, Calcium 8.8 11/05/24 06:37: POC Glucose 128 H Physical Exam Const alert, oriented x3, no apparent distress and well nourished Constitutional Narrative: Elderly, white male, sitting up in bed, appears comfortable currently, nontoxic HEENT head/scalp atraumatic Head and Scalp: normocephalic Psych affect normal Psych Narrative: Eye contact is good and patient appears comfortable Assessment & Plan Assessment/Plan (1) Fall from slip, trip, or stumble: (2) Debility: PLAN: Plan Debility/falls/failure to thrive - Recent admission due to weakness and mechanical fall - Patient refused placement at that time but we presented due to inability to take care of himself at home and is now wanting to be placed - PT/OT following - Awaiting approval from the [facility] for PASRR - Has been accepted at [facility] and will discharge once approved by the [facility] Chronic low back pain secondary to severe spinal stenosis - As at baseline follows with pain management -has received injections previously - Continue pain medication per pain management - Lumbar x-ray on admission showed minimal loss of height in the superior endplate of L1 vertebrae which appeared to be stable History of sinus tachycardia with first-degree AV block - Tachycardia would resolved -TSH was within normal limits - Continue [place] metoprolol - Patient was evaluated for PE and workup was negative DM-2 -Restart Januvia at discharge - Continue SSI - Accu-Cheks as ordered - Continue diet as ordered Hyperlipidemia -continue home rosuvastatin BPH with obstruction - Continue Flomax Seizure disorder - Continue chronic Keppra History of gout Continue home allopurinol DVT prophylaxis -was initially documented that he was on Xarelto at baseline however it was reported he is not taking it - Continue Lovenox CODE STATUS -Full code Charges/Coding Visit Charges Inpatient E&M: 78296 Subs Hosp L1
[2024-11-05 08:30] VITALS: BP 103/71; PULSE 102; RESP 18; TEMP 36.8; O2SAT 95
[2024-11-05 09:32] VITALS: PULSE 102
[2024-11-05] MEDS: Enoxaparin 40 MG/0.4 ML Syringe SC (09:32)
[2024-11-05] MEDS: Metoprolol Tartrate 25 MG Tablet 12.5 MG PO ×2 (09:32→21:55)
[2024-11-05] MEDS: Allopurinol 300 MG Tablet PO (09:32)
[2024-11-05] MEDS: levETIRAcetam 500 MG Tablet PO ×2 (09:32→21:55)
[2024-11-05] MEDS: LINAGLIPTIN 5 MG TABLET PO (09:32)
[2024-11-05] MEDS: oxyCODONE HCl Cr 10 MG Tablet 20 MG PO ×2 (11:20→21:54)
[2024-11-05 11:41] LABS: Bedside Glucose 130 mg/dL (74-106)
[2024-11-05 14:01] VITALS: BP 111/73; PULSE 105; RESP 18; TEMP 37.4; O2SAT 98
--- NOTE | 2024-11-05 15:47 | CASEMGMT ---
Discharge Planning Pt is a current client of [facility]. They were notified that pt will discharge to snf. Inge El DC Planning Asst
[2024-11-05 16:36] LABS: Bedside Glucose 142 mg/dL (74-106)
[2024-11-05] MEDS: Tamsulosin HCl 0.4 MG Capsule PO (17:05)
[2024-11-05 21:47] VITALS: BP 109/62; PULSE 107; RESP 17; TEMP 36.8; O2SAT 93
[2024-11-05] MEDS: Insulin Lispro 100 UNIT/ML INSULN.PEN SC (21:54)
[2024-11-05 21:55] VITALS: PULSE 107
[2024-11-05] MEDS: Atorvastatin Calcium 20 MG Tablet PO (21:55)
[2024-11-05] MEDS: Amitriptyline 25 MG Tablet PO (21:56)
[2024-11-05 22:33] LABS: Bedside Glucose 155 mg/dL (74-106)
[2024-11-06 03:47] VITALS: BP 109/62; PULSE 101; RESP 17; TEMP 36.8; O2SAT 94
[2024-11-06 06:43] LABS: Bedside Glucose 132 mg/dL (74-106)
[2024-11-06 07:49] LABS: Absolute Lymphocyte Count 1.58 X10^3/uL (0.83-4.51); Absolute Neutrophil Count 2.8 X10^3/uL (2.0-7.7); Basophil# 0.04 X10^3/uL; Basophil% 0.8 % (0-1); Eosinophil# 0.31 X10^3/uL; Eosinophils% 5.9 % (0-5); Hematocrit 34.5 % (40-54); Hemoglobin 11.3 g/dL (13.0-16.5); Lymphocyte # 1.58 X10^3/ul (0.83-4.51); Lymphocyte % 30.2 % (19-41); Mean Corp Hgb Conc 32.8 g/dL (32-36); Mean Corpuscular Hgb 30.9 pg (27.0-32.0); Mean Corpuscular Volume 94.3 fL (80-94); Mean Platelet Vol. 9.9 fl (6.2-12.0); Monocyte% 9.5 % (0-10); NRBC Flagged by Analyzer 0 % (0-5); Neutrophil # 2.79 X10^3/uL (2.7-7.7); Neutrophil % 53.2 % (47-70); Platelet Count 222 K/mm3 (150-450); RBC Distribution Width CV 14.1 % (11.6-14.6); RBC Distribution Width SD 48.7 fl (35.1-43.9); Red Blood Count 3.66 M/mm3 (4.6-6.2); White Blood Count 5.2 K/mm3 (4.4-11.0)
[2024-11-06 08:36] LABS: Anion Gap 10 (5-15); BUN 17 mg/dL (4-19); BUN/Creat Ratio 22.4 RATIO (10-20); Calcium,Total 8.3 mg/dL (7.6-11.0); Carbon Dioxide 23.5 mmol/L (21.0-32.0); Chloride 104 mmol/L (98-108); Creatinine, Serum 0.75 mg/dL (0.70-1.20); EST Glomerular Filtration Rate 86 (>60); Estimated Creatinine Clearance 67.66 ml/min (50-250); Glucose 135 mg/dL (70-99); Potassium 4.2 mmol/L (3.3-5.1); Sodium Level 137 mmol/L (133-145)
--- NOTE | 2024-11-06 09:01 | CASEMGMT ---
Discharge Planning Updates sent to [facility]. Inge El DC Planning Asst.
[2024-11-06 09:24] VITALS: BP 148/88; PULSE 120; RESP 16; TEMP 36.7; O2SAT 99
[2024-11-06 09:44] VITALS: PULSE 120
[2024-11-06] MEDS: levETIRAcetam 500 MG Tablet PO ×2 (09:44→20:33)
[2024-11-06] MEDS: Metoprolol Tartrate 25 MG Tablet 12.5 MG PO ×2 (09:44→20:33)
[2024-11-06] MEDS: Allopurinol 300 MG Tablet PO (09:44)
[2024-11-06] MEDS: Enoxaparin 40 MG/0.4 ML Syringe SC (09:49)
[2024-11-06] MEDS: oxyCODONE HCl Cr 10 MG Tablet 20 MG PO ×2 (09:49→21:04)
[2024-11-06] MEDS: LINAGLIPTIN 5 MG TABLET PO (09:50)
[2024-11-06] MEDS: Polyethylene Glycol 3350 17 GM PACKET PO (11:48)
[2024-11-06 11:54] LABS: Bedside Glucose 137 mg/dL (74-106)
--- NOTE | 2024-11-06 12:00 | CASEMGMT ---
Social Work Checked the [place] [facility] and patient's level II PASRR is still pending. Plan: [facility] when PASRR process is completed and approved. -MEG Gonzalez
--- NOTE | 2024-11-06 13:09 | CASEMGMT ---
[facility] Sent message and H&P to [facility] and also made aware of current dc plan.
[2024-11-06 14:09] VITALS: BP 119/74; PULSE 86; RESP 16; TEMP 36.6; O2SAT 94
--- NOTE | 2024-11-06 14:49 | PN.HOSP_ITS ---
Reason for Visit Reason for Visit: Failure to Thrive Subjective Subjective No issues overnight. Pt states that she is feeling well. Still awaiting PASRR. Objective Data Objective Data Vital Signs: Vital Signs Temp Pulse Resp BP Pulse Ox O2 Del Method 97.8 F 86 16 119/74 94 Room Air 11/06/24 14:09 11/06/24 14:09 11/06/24 14:09 11/06/24 14:09 11/06/24 14:09 11/06/24 14:09 Oxygen Delivery Method Room Air Weight: 85 kg Body Mass Index (BMI) 27.6 Intake & Output: Intake and Output for Last 24 Hours 11/04/24 11/05/24 11/06/24 23:59 23:59 23:59 Intake Total 550 / 550 Balance 550 / 550 Lab / Micro Data 11/06/24 07:30 11/06/24 07:30 Labs: Laboratory Results - last 24 hr 11/05/24 16:11: POC Glucose 142 H 11/05/24 21:46: POC Glucose 155 H 11/06/24 06:24: POC Glucose 132 H 11/06/24 07:30: WBC 5.2, RBC 3.66 L, Hgb 11.3 L, Hct 34.5 L, MCV 94.3 H, MCH 30.9, MCHC 32.8, RDW Std Deviation 48.7 H, RDW Coeff of May 14.1, Plt Count 222, MPV 9.9, Immature Gran % (Auto) 0.400, Neut % (Auto) 53.2, Lymph % (Auto) 30.2, [place] % (Auto) 9.5, Eos % (Auto) 5.9 H, Baso % (Auto) 0.8, Absolute Neuts (auto) 2.8, Absolute Lymphs (auto) 1.58, Nucleated RBC % 0, Sodium 137, Potassium 4.2, Chloride 104, Carbon Dioxide 23.5, Anion Gap 10, BUN 17, Creatinine 0.75, Estim Creat Clear Calc 67.66, Est GFR (MDRD) Non-Af 86, BUN/Creatinine Ratio 22.4 H, G lucose 135 H, Calcium 8.3 11/06/24 11:34: POC Glucose 137 H Physical Exam Const alert, oriented x3, no apparent distress and well nourished; Negative for average body habitus or healthy appearing Constitutional Narrative: Overweight, Elderly, white male, sitting up in bed, and eating breakfast, appears comfortable currently, nontoxic General Appearance: cooperative HEENT normocephalic and head/scalp atraumatic Neuro oriented x3 and moves all extremities Psych affect normal Psych Narrative: Eye contact is good and patient appears comfortable Assessment & Plan Assessment/Plan (1) Fall from slip, trip, or stumble: (2) Debility: PLAN: Plan Debility/falls/failure to thrive - Recent admission due to weakness and mechanical fall - Patient refused placement at that time but we presented due to inability to take care of himself at home and is now wanting to be placed - PT/OT following - Awaiting approval from the [facility] for PASRR - Has been accepted at [facility] and will discharge once approved by the state Chronic low back pain secondary to severe spinal stenosis - As at baseline follows with pain management and pain is well controlled - has received injections previously - Continue pain medication per pain management - Lumbar x-ray on admission showed minimal loss of height in the superior endplate of L1 vertebrae which appeared to be stable History of sinus tachycardia with first-degree AV block - Tachycardia would resolved -TSH was within normal limits - Continue [place] metoprolol - Patient was evaluated for PE and workup was negative DM-2 - cont Januvia at discharge - Continue SSI - Accu-Cheks as ordered - Continue diet as ordered Hyperlipidemia -continue home rosuvastatin BPH with obstruction - Continue Flomax Seizure disorder - Continue chronic Keppra History of gout -Continue home allopurinol DVT prophylaxis - Continue Lovenox 40 mg sub q daily CODE STATUS -Full code Charges/Coding Visit Charges Inpatient E&M: 39518 Subs Hosp L1
[2024-11-06] MEDS: Tamsulosin HCl 0.4 MG Capsule PO (16:47)
[2024-11-06] MEDS: Insulin Lispro 100 UNIT/ML INSULN.PEN SC (16:47)
[2024-11-06 17:08] LABS: Bedside Glucose 150 mg/dL (74-106)
[2024-11-06 20:30] VITALS: BP 107/75; PULSE 112; RESP 18; TEMP 36.6; O2SAT 96
[2024-11-06] MEDS: Atorvastatin Calcium 20 MG Tablet PO (20:32)
[2024-11-06] MEDS: Amitriptyline 25 MG Tablet PO (20:32)
[2024-11-06 20:33] VITALS: BP 107/75; PULSE 112
[2024-11-06 21:06] LABS: Bedside Glucose 134 mg/dL (74-106)
[2024-11-07 02:30] VITALS: BP 134/67; PULSE 87; RESP 17; TEMP 37; O2SAT 94
[2024-11-07 06:34] LABS: Bedside Glucose 131 mg/dL (74-106)
[2024-11-07] MEDS: Allopurinol 300 MG Tablet PO (08:30)
[2024-11-07] MEDS: levETIRAcetam 500 MG Tablet PO ×2 (08:30→22:10)
[2024-11-07 08:31] VITALS: PULSE 90
[2024-11-07] MEDS: Metoprolol Tartrate 25 MG Tablet 12.5 MG PO (08:31)
[2024-11-07] MEDS: Enoxaparin 40 MG/0.4 ML Syringe SC (08:31)
[2024-11-07] MEDS: LINAGLIPTIN 5 MG TABLET PO (08:32)
[2024-11-07] MEDS: oxyCODONE HCl Cr 10 MG Tablet 20 MG PO ×2 (08:46→22:10)
[2024-11-07 09:00] VITALS: BP 124/79; PULSE 90; RESP 15; TEMP 36.7; O2SAT 94
[2024-11-07] MEDS: Insulin Lispro 100 UNIT/ML INSULN.PEN SC ×2 (10:51→17:33)
[2024-11-07 11:29] LABS: Bedside Glucose 158 mg/dL (74-106)
[2024-11-07 14:00] VITALS: BP 101/66; PULSE 115; RESP 17; TEMP 36.4; O2SAT 95
[2024-11-07 17:14] LABS: Bedside Glucose 168 mg/dL (74-106)
[2024-11-07] MEDS: Tamsulosin HCl 0.4 MG Capsule PO (17:33)
--- NOTE | 2024-11-07 17:50 | CASEMGMT ---
Social Work- SW checked [facility] system for determination of level II. No determination has been made at this time; showing as submitted. Pt notified of pending status. IZZY Piña
--- NOTE | 2024-11-07 19:53 | PCM.PN.HOSP ---
Reason for Visit Reason for Visit: Failure to thrive Subjective Subjective No complaints. Still waiting for the [facility] to clear him for discharge to skilled facility. Patient is a bit frustrated with the wait. Objective Data Objective Data Vital Signs: Vital Signs Temp Pulse Resp BP Pulse Ox O2 Del Method 97.5 F L 115 H 17 101/66 95 Room Air 11/07/24 14:00 11/07/24 14:00 11/07/24 14:00 11/07/24 14:00 11/07/24 14:00 11/07/24 14:00 Oxygen Delivery Method Room Air Weight: 85 kg Body Mass Index (BMI) 27.6 Intake & Output: Intake and Output for Last 24 Hours 11/05/24 11/06/24 11/07/24 23:59 23:59 23:59 Intake Total 320 / 320 120 / 120 Balance 320 / 320 120 / 120 Lab / Micro Data 11/06/24 07:30 11/06/24 07:30 Labs: Laboratory Results - last 24 hr 11/06/24 20:29: POC Glucose 134 H 11/07/24 06:16: POC Glucose 131 H 11/07/24 10:50: POC Glucose 158 H 11/07/24 16:51: POC Glucose 168 H Physical Exam Const alert, oriented x3, no apparent distress and well nourished; Negative for average body habitus or healthy appearing Constitutional Narrative: Overweight, Elderly, white male, sitting up in bed, napping but awakens easily, appears comfortable, nontoxic General Appearance: cooperative Orientation / Consciousness: lethargic HEENT normocephalic and head/scalp atraumatic Psych affect normal Psych Narrative: Eye contact is good and patient appears comfortable Assessment & Plan Assessment/Plan (1) Fall from slip, trip, or stumble: (2) Debility: PLAN: Plan Debility/falls/failure to thrive - Recent admission due to weakness and mechanical fall - Patient refused placement at that time but we presented due to inability to take care of himself at home and is now wanting to be placed - PT/OT following - Awaiting approval from the [facility] for PASRR - Has been accepted at [facility] and will discharge once approved by the state Chronic low back pain secondary to severe spinal stenosis - As at baseline follows with pain management and pain is well controlled - has received injections previously - Continue pain medication per pain management - Lumbar x-ray on admission showed minimal loss of height in the superior endplate of L1 vertebrae which appeared to be stable History of sinus tachycardia with first-degree AV block - Tachycardia would resolved -TSH was within normal limits - Continue metoprolol but increase to 25 twice daily - Patient was evaluated for PE and workup was negative DM-2 - cont Januvia at discharge - Continue SSI - Accu-Cheks as ordered - Continue diet as ordered Hyperlipidemia -continue home rosuvastatin BPH with obstruction - Continue Flomax Seizure disorder - Continue chronic Keppra History of gout -Continue home allopurinol DVT prophylaxis - Continue Lovenox 40 mg sub q daily CODE STATUS -Full code Disposition: - Patient has been medically stable for discharge since 12/01/2023. Awaiting clearance from the [place] Department of developmental disabilities. Have accepting facility and once approval is received patient will be discharged Charges/Coding Visit Charges Inpatient E&M: 83908 Subs Hosp L1
[2024-11-07 20:05] VITALS: BP 127/82; PULSE 103; RESP 17; TEMP 36.6; O2SAT 98
[2024-11-07 22:10] VITALS: BP 127/82; PULSE 103
[2024-11-07] MEDS: Atorvastatin Calcium 20 MG Tablet PO (22:10)
[2024-11-07] MEDS: Amitriptyline 25 MG Tablet PO (22:10)
[2024-11-07] MEDS: 0.9% Saline Lock 10 ML Syringe IV (22:10)
[2024-11-07] MEDS: Metoprolol Tartrate 25 MG Tablet PO (22:10)
[2024-11-07 23:38] LABS: Bedside Glucose 113 mg/dL (74-106)
[2024-11-08] VITALS (7 sets, daily range): BP systolic 124–132; BP diastolic 75–86; PULSE 86–112; RESP 14–18; TEMP 36–37.1; O2SAT 94–97
[2024-11-08 06:46] LABS: Bedside Glucose 116 mg/dL (74-106)
[2024-11-08] MEDS: Metoprolol Tartrate 25 MG Tablet PO ×2 (09:23→23:17)
[2024-11-08] MEDS: Allopurinol 300 MG Tablet PO (09:23)
[2024-11-08] MEDS: levETIRAcetam 500 MG Tablet PO ×2 (09:23→23:16)
[2024-11-08] MEDS: LINAGLIPTIN 5 MG TABLET PO (09:24)
[2024-11-08] MEDS: Enoxaparin 40 MG/0.4 ML Syringe SC (09:24)
[2024-11-08] MEDS: oxyCODONE HCl Cr 10 MG Tablet 20 MG PO ×2 (09:24→23:16)
[2024-11-08 11:45] LABS: Bedside Glucose 122 mg/dL (74-106)
--- NOTE | 2024-11-08 13:38 | CASEMGMT ---
Social Work SW checked on HENS. Level II determination has not been completed at this time. CHANI sent email to Bruno at the [place] Department of inquiring about results. IZZY Peoples
--- NOTE | 2024-11-08 14:47 | PN.HOSP_ITS ---
Reason for Visit Reason for Visit: Failure to thrive Subjective Subjective Patient states he is frustrated and wants to go out of the hospital. States if he is not ready to go tomorrow he is going to call the son and have them take him. I tried to explain the process but he is not interested in hearing at this time Objective Data Objective Data Vital Signs: Vital Signs Temp Pulse Resp BP Pulse Ox O2 Del Method 98.3 F 86 16 125/81 H 97 Room Air 11/08/24 08:30 11/08/24 09:23 11/08/24 08:30 11/08/24 09:23 11/08/24 08:30 11/08/24 09:00 Oxygen Delivery Method Room Air Weight: 85 kg Body Mass Index (BMI) 27.6 Intake & Output: Intake and Output for Last 24 Hours 11/06/24 11/07/24 11/08/24 23:59 23:59 23:59 Intake Total 320 / 320 520 / 520 500 / 500 Balance 320 / 320 520 / 520 500 / 500 Lab / Micro Data 11/06/24 07:30 11/06/24 07:30 Labs: Laboratory Results - last 24 hr 11/07/24 16:51: POC Glucose 168 H 11/07/24 21:58: POC Glucose 113 H 11/08/24 06:17: POC Glucose 116 H 11/08/24 11:26: POC Glucose 122 H Physical Exam Const alert, oriented x3, no apparent distress and well nourished; Negative for average body habitus or healthy appearing Constitutional Narrative: Overweight, Elderly, white male, sitting up in bed, watching television, nursing at bedside, appears comfortable, nontoxic but frustrated HEENT normocephalic, head/scalp atraumatic and moist oral mucous membranes HEENT Narrative: Edentulous Psych thought process normal, cooperative and affect normal Psych Narrative: Eye contact is good, patient is frustrated Appearance: appropriate Assessment & Plan Assessment/Plan (1) Fall from slip, trip, or stumble: (2) Debility: PLAN: Plan Debility/falls/failure to thrive - Recent admission due to weakness and mechanical fall - Patient refused placement at that time but we presented due to inability to take care of himself at home and is now wanting to be placed - PT/OT following - Awaiting approval from the [facility] for PASRR - Has been accepted at [facility] and will discharge once approved by the state Chronic low back pain secondary to severe spinal stenosis - As at baseline follows with pain management and pain is well controlled - has received injections previously - Continue pain medication per pain management - Lumbar x-ray on admission showed minimal loss of height in the superior endplate of L1 vertebrae which appeared to be stable History of sinus tachycardia with first-degree AV block - Tachycardia would resolved -TSH was within normal limits - Continue metoprolol but increase to 25 twice daily - Patient was evaluated for PE and workup was negative DM-2 - cont Januvia at discharge - Continue SSI - Accu-Cheks as ordered - Continue diet as ordered Hyperlipidemia -continue home rosuvastatin BPH with obstruction - Continue Flomax Seizure disorder - Continue chronic Keppra History of gout -Continue home allopurinol DVT prophylaxis - Continue Lovenox 40 mg sub q daily CODE STATUS -Full code Disposition: - Patient has been medically stable for discharge since 12/01/2023. Awaiting clearance from the [place] Department of developmental disabilities. Have accepting facility and once approval is received patient will be discharged Charges/Coding Visit Charges Inpatient E&M: 74603 Subs Hosp L1
--- NOTE | 2024-11-08 16:01 | CASEMGMT ---
Social Work CHANI reviewed therapy notes as pt will need precert prior to admission to SNF. Pt ambulated 280ft SBA, transferred at SBA and is Min A for ADL's. Phone call to pt neal Perez to discuss possibility that insurance may not be agreeable to pay for skilled stay as pt is doing well. Ana states that pt does not have the means to pay privately at SNF and is uncertain if pt has Medicaid. Ana also states that pt's , Radha, who is at [facility] will be discharging on Tuesday. Ana is uncertain if pt will go to SNF without being there and stated that pts son Christo who lives in [place] is currently in town and can molded goods spot picker pt and take him home if pt does not go to SNF. CHANI placed call to Jillian, youth coordinator at [facility]. Jillian confirms that Mrs. Wyatt has been cut by insurance and is choosing to discharge from their facility home on Tuesday. Mrs. Wyatt is currently a Max A and cannot care for herself. Son who lives in [place] is planning on caring for her. Mrs. 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 Jillian spoke with Mrs. Wyatt who states that pt cannot return home with her as she is unable to care for him and pt must go to [facility] and remain retirement. Mrs. Wyatt and family are agreeable for pt to go on retirement care Medicaid. Jillian states she did explain to Mrs. Wyatt that pt cannot be forced to go to SNF against his will. CHANI spoke with Dane Chery Medicaid specialist. Pt currently has QI1 and QI2 Medicaid which can easily be switched to retirement care Medicaid. Jillian notified of this and states if pt is denied skilled stay, pt could admit to [facility] and they will assist pt and family in working out the Medicaid payment. Pt has not been told that pt's is leaving [facility] tomorrow. CHANI placed call to Ana and left message that family needs to talk this over with pt and requested return call to CHANI to discuss. Jillian at [facility] did start precert today for SNF placement. Level II determination has not been returned yet. CHANI will continue to follow for dc planning. IZZY Peoples
[2024-11-08 16:36] LABS: Bedside Glucose 126 mg/dL (74-106)
[2024-11-08] MEDS: Tamsulosin HCl 0.4 MG Capsule PO (17:27)
[2024-11-08] MEDS: Atorvastatin Calcium 20 MG Tablet PO (23:16)
[2024-11-08] MEDS: Amitriptyline 25 MG Tablet PO (23:17)
[2024-11-08 23:44] LABS: Bedside Glucose 143 mg/dL (74-106)
[2024-11-09 05:11] VITALS: BP 100/56; PULSE 83; RESP 16; TEMP 36.1; O2SAT 93
[2024-11-09 05:38] LABS: Hematocrit 36.8 % (40-54); Hemoglobin 11.7 g/dL (13.0-16.5); Mean Corp Hgb Conc 31.8 g/dL (32-36); Mean Corpuscular Hgb 30.2 pg (27.0-32.0); Mean Corpuscular Volume 94.8 fL (80-94); Mean Platelet Vol. 10.8 fl (6.2-12.0); Platelet Count 241 K/mm3 (150-450); RBC Distribution Width CV 14.1 % (11.6-14.6); RBC Distribution Width SD 49.1 fl (35.1-43.9); Red Blood Count 3.88 M/mm3 (4.6-6.2)
[2024-11-09 06:19] LABS: Anion Gap 9 (5-15); BUN 19 mg/dL (4-19); Calcium,Total 8.8 mg/dL (7.6-11.0); Carbon Dioxide 23.9 mmol/L (21.0-32.0); Chloride 103 mmol/L (98-108); Creatinine, Serum 0.75 mg/dL (0.70-1.20); EST Glomerular Filtration Rate 86 (>60); Estimated Creatinine Clearance 67.66 ml/min (50-250); Glucose 130 mg/dL (70-99); Potassium 4.1 mmol/L (3.3-5.1); Sodium Level 136 mmol/L (133-145)
[2024-11-09 06:20] LABS: Bedside Glucose 120 mg/dL (74-106)
--- NOTE | 2024-11-09 08:55 | CASEMGMT ---
Addendum entered by Marlyn Kaur 11/09/24 10:07: Social Work [facility] notified to cancel referral. IZZY Peoples Addendum entered by Marlyn Kaur 11/09/24 10:01: Social Work Return call from pt's son Jim who states he will be picking pt up and taking him home today. Jim did talk to pt's and informed her of this. Jim has not spoke with pt regarding discharge plan. CHANI met with pt to discuss discharge plan. Pt spoke with someone in his family and is aware that his is returning home from SNF today and states that he will no longer be going to [facility] but will also be returning home with . Pt is aware that his son has moved into his home to provide care. Pt is willing to restart services with home health care, pt was active with [facility] prior to admission. Pt is concerned as he is out of pain medicine at home. CHANI updated physician on dc plan. Discharge curriculum assistant requested to send resumption of care to [facility]. Plan: Home with resumption of care with Counts include 234 beds at the [facility] RN/PT/OT/IZZY Arce Original Note: Social Work Level II determination completed and approval given for pt to admit to SNF. VM received from pt's dgt in law Natalie Edmundo stating since pt is discharging home from SNF, pt will be discharging home as well and Natalie is requesting home health be set up. Phone call placed to pt son/HCPMICHAEL Fernandez to discuss dc plan. VM left requesting return call. IZZY Peoples
[2024-11-09 09:29] VITALS: BP 119/76; PULSE 91; RESP 16; TEMP 36.6; O2SAT 96
[2024-11-09 09:31] VITALS: BP 119/76; PULSE 91
[2024-11-09] MEDS: levETIRAcetam 500 MG Tablet PO (09:31)
[2024-11-09] MEDS: Metoprolol Tartrate 25 MG Tablet PO (09:31)
[2024-11-09] MEDS: LINAGLIPTIN 5 MG TABLET PO (09:31)
[2024-11-09] MEDS: Allopurinol 300 MG Tablet PO (09:31)
[2024-11-09] MEDS: Enoxaparin 40 MG/0.4 ML Syringe SC (09:31)
[2024-11-09] MEDS: oxyCODONE HCl Cr 10 MG Tablet 20 MG PO (09:33)
[2024-11-09] MEDS: Polyethylene Glycol 3350 17 GM PACKET PO (09:34)
--- NOTE | 2024-11-09 10:38 | CASEMGMT ---
Addendum entered by Inge El 11/09/24 12:52: Discharge Summary sent to [facility]. Inge El DC Planning Asst. Original Note: Discharge Planning resumption referral sent to [facility]. Inge El DC Planning Asst.
[2024-11-09] MEDS: Insulin Lispro 100 UNIT/ML INSULN.PEN SC (11:31)
[2024-11-09 11:52] LABS: Bedside Glucose 156 mg/dL (74-106)
--- NOTE | 2024-11-09 11:57 | PCM.DC.SUM ---
Providers Date of Admission: 10/30/24 Date of Discharge: 11/09/24 Primary Care Physician: Dr. Saulo Miranda MD Reason For Visit: FAILURE TO THRIVE, CHRONIC BACK PAIN Diagnosis Discharge Diagnosis (1) Fall from slip, trip, or stumble: Status: Acute Code(s): W01.0XXA - Fall on same level from slipping, tripping and stumbling without subsequent striking against object, initial encounter (2) Debility: Status: Acute Code(s): R53.81 - Other malaise (3) Spinal stenosis of lumbar region with radiculopathy: Status: Acute Code(s): M48.061 - Spinal stenosis, lumbar region without neurogenic claudication; M54.16 - Radiculopathy, lumbar region Medications at Discharge Home Medications allopurinol 300 mg tablet 300 mg PO DAILY 10/15/24 amitriptyline 25 mg tablet 25 mg PO DAILY 10/15/24 insulin glargine 100 unit/mL (3 mL) subcutaneous pen (Lantus Solostar U-100 Insulin) unit subcut 10/15/24 levetiracetam 500 mg tablet 500 mg PO BID 10/15/24 sitagliptin phosphate 100 mg tablet (Januvia) 100 mg PO DAILY 10/15/24 tamsulosin 0.4 mg capsule 0.4 mg PO DAILY 10/15/24 hydroxyzine pamoate 25 mg capsule 25 mg PO QHS PRN insomnia #30 CAPSULES 10/17/24 oxymetazoline 0.05 % nasal spray (12 Hour Nasal Relief [place]) 2 spray intranasal BID PRN Nasal congestion 30 days #0 mL 10/17/24 sennosides 8.6 mg-docusate sodium 50 mg tablet (Stimulant Laxative Plus) 2 tab PO BID #0 tabs 10/17/24 insulin lispro 100 unit/mL subcutaneous half-unit pen (Humalog Andrews KwikPen (U-100)) See Protocol subcut TIDCM #15 mL 10/18/24 rosuvastatin 10 mg tablet 10 mg PO DAILY 1 month #30 tabs 10/18/24 metoprolol tartrate 25 mg tablet 25 mg PO BID #60 tabs 11/09/24 oxycodone myristate 18 mg capsule sprinkle extended release 12hr(DON'T CRUSH) (Xtampza ER) 18 mg PO BID 3 days #6 ea 11/09/24 Hospital Course Procedures - (Lumbar spine plain films/CTA chest) Summary of Care Provided Minutes Spent on Discharge: 38 Hospital Course: Mr. Wyatt is an 89-year-old white male who presented to the emergency department at [facility] on 10/30/2024 with a chief complaint of failure to thrive. He had recently been admitted and discharged on 10/18/2024 at which time he refused to be placed. After going home he was unable to care for himself. He has chronic pain issues and sees pain management. He had been getting injections and is on chronic pain medications for spinal stenosis. It was reported that he was getting weaker and unable to care for himself so family brought him in for placement. At the end of admission his was also in a nursing facility. Vital signs on presentation showed a temperature of 98, heart rate 103, respiratory rate was 18, blood pressure was 143/88 and pulse ox was 94% on room air. CBC was unremarkable. D-dimer was slightly elevated at 1.28. Chemistry panel was unremarkable other than hyperglycemia at 151 he is a known diabetic at baseline. Plain films of the back showed minimal loss of height at the superior endplate of L1 but was otherwise unremarkable for any acute findings. He also was noted to have a large amount of fecal material in the colon. Given his D-dimer elevation a CT of his chest was performed and showed no evidence of PE, elevated left hemidiaphragm with some left lower lobe atelectasis. He was admitted to the medical surgical floor and physical and Occupational Therapy were consulted. Initially did very poorly and had ongoing therapy services daily. Prior to placement, due to a history of seizure disorder and the patient being on Keppra a state PASRR screen was required and positive therefore the [facility] department of developmental disability has had to clear him for discharge. As of 11/09/2024 the patient was never cleared for discharge and his had been discharged from retirement facility so he refused placement. He was insisting on discharge home and his son was notified and agreeable at that time. Patient was discharged home in stable condition on 11/09/2024. Patient was able to walk over 200 feet with therapy in the days prior to discharge home so clinically he had improved and we are hopeful that he can maintain strength and avoid readmission. However, his risk overall for readmission is extremely high given his functional issues related to a spinal stenosis and other comorbidities. Patient did have some intermittent sinus tachycardia with rates in the low 100s so we did start him on metoprolol 25 mg p.o. twice daily and this seemed to mitigate that issue. Prescription for this was sent on discharge and a prescription for his pain medicine patient has he had run out and its Tuesday he was concerned that he would not be able to get any refills from his primary pain management doctor until Tuesday. We did cover him for 3 days. Discharge diagnoses: Failure to thrive Debility Falls Chronic low back pain secondary to severe spinal stenosis History of sinus tachycardia First-degree AV block DM-2 Hyperlipidemia BPH with obstruction Seizure disorder Gout Physical Exam Const alert, oriented x3, no apparent distress, no limitations and well nourished; Negative for average body habitus or healthy appearing Constitutional Narrative: Overweight, Elderly, white male, sitting up in bed, watching television, nursing at bedside, appears comfortable, pleased to know he is going home today General Appearance: cooperative, comfortable, well kempt and well developed Orientation / Consciousness: lethargic Nutritional Appearance: overweight HEENT normocephalic, head/scalp atraumatic and moist oral mucous membranes; Negative for hearing grossly normal bilaterally HEENT Narrative: Dentition is poor, Mallampati is 2, moderate hearing loss Eyes conjunctivae normal Eyes Narrative: No scleral icterus Neck no lymphadenopathy, supple and no JVD Resp normal respiratory effort, normal air movement, no use of accessory muscles and clear to auscultation bilaterally Cardio regular rate, regular rhythm, S1 normal heart sound, S2 normal heart sound and no murmurs GI normal to inspection, nondistended, normoactive bowel sounds, soft to palpation and non-tender Extremity no clubbing, cyanosis or edema Extremity Narrative: 2+ pedal and radial pulses Neuro oriented x3, moves all extremities and no focal motor deficits Psych affect normal Psych Narrative: Eye contact is good, calm, interacts appropriately Appearance: appropriate Weight / BMI Weight Weight: 85 kg Body Mass Index (BMI) 27.6 ABG / Lab / Microbiology Data 11/09/24 04:24 11/09/24 04:24 Laboratory: Laboratory Results - last 24 hr 11/08/24 16:19: POC Glucose 126 H 11/08/24 23:23: POC Glucose 143 H 11/09/24 04:24: WBC 6.0, RBC 3.88 L, Hgb 11.7 L, Hct 36.8 L, MCV 94.8 H, MCH 30.2, MCHC 31.8 L, RDW Std Deviation 49.1 H, RDW Coeff of May 14.1, Plt Count 241, MPV 10.8, Sodium 136, Potassium 4.1, Chloride 103, Carbon Dioxide 23.9, Anion Gap 9, BUN 19, Creatinine 0.75, Estim Creat Clear Calc 67.66, Est GFR (MDRD) Non-Af 86, BUN/Creatinine Ratio 25.0 H, Glucose 130 H, Calcium 8.8 11/09/24 05:59: POC Glucose 120 H 11/09/24 11:29: POC Glucose 156 H D/C Instructions Discharge Diet: 1800 Calorie Control Diet Discharge Activity: Return to Normal Activity and Use Walker DC O2, CPAP, BIPAP Needs Home O2 Discharge instructions: No Meaningful Use Info Meaningful Use Meaningful Use Diagnoses (Choose all that apply): None applicable Ischemic Stroke Statin Dosing Therapy Reference: STATIN DOSE THERAPY REFERENCE: * Patients > 75 years receive moderate or high dose statin therapy. * Patients 75 years or YOUNGER should receive HIGH intensity statin dose unless contraindicated. You will be required to document reason for non-treatment if statin daily dose does not meet guidelines. HIGH DOSE STATIN THERAPY DAILY Atorvastatin > than or = to 40 mg Rosuvastatin > than or = to 20 mg Amlodipine + Atorvastatin > than or = to 2.5/40 mg Ezetimibe + Simvastatin 10/80 mg Simvastatin 80mg Discharge Plan Admission Admit Date/Time: 10/30/24 11:15 Primary Reason for Your Visit: Failure to Thrive Attending Provider: Lu Coreas Primary Care Provider: Saulo Miranda Consulting Providers: Mindi Nelson Discharge Orders/Prescriptions Prescriptions: New metoprolol tartrate 25 mg Tablet 25 mg PO BID Qty: 60 0RF Continued levetiracetam 500 mg tablet 500 mg PO BID Januvia 100 mg tablet 100 mg PO DAILY amitriptyline 25 mg tablet 25 mg PO DAILY insulin glargine [Lantus Solostar U-100 Insulin] 100 unit/mL (3 mL) insulin pen subcut Patient Comments: unknown dosage tamsulosin 0.4 mg capsule 0.4 mg PO DAILY allopurinol 300 mg tablet 300 mg PO DAILY sennosides-docusate sodium [Stimulant Laxative Plus] 8.6-50 mg Tablet 2 tab PO BID Qty: 0 0RF hydroxyzine pamoate 25 mg capsule 25 mg PO QHS PRN (Reason: insomnia) Qty: 30 0RF oxymetazoline [12 Hour Nasal Relief [place]] 0.05 % spray,non-aerosol 2 spray intranasal BID PRN (Reason: Nasal congestion) 30 Days Qty: 0 0RF rosuvastatin 10 mg tablet 10 mg PO DAILY 30 Days Qty: 30 2RF insulin lispro [Humalog Andrews KwikPen U-100] 100 unit/mL insulin pen, half-unit See Protocol subcut TIDCM Qty: 15 3RF Protocol: 3. Sliding Scale Insulin Med Dosing Condition: 150-189 mg/dl = 1 unit Condition: 190-229 mg/dl = 2 units Condition: 230-269 mg/dl = 3 units Condition: 270-309 mg/dl = 4 units Condition: 310-349 mg/dl = 5 units Condition: 350-399 mg/dl = 6 units Condition: 400-449 mg/dl = 7 units Condition: Greater than 449 call physician Protocol Text: Suggested for: - Patients on Total Daily Insulin Dose of 37-55 units - Obese, infected, or steroid patients MEDIUM DOSING ALGORITHIM Rx Instructions: Call PCP if Glucose <70 or > 400 Xtampza ER 18 mg cap,sprinkl,ER12hr(DONT CRUSH) 18 mg PO BID 3 Days Qty: 6 0RF Rx Instructions: must administer with a meal/food Discontinued Xarelto 20 mg tablet 20 mg PO DAILY Rx Instructions: must administer with evening meal Referrals / Follow Up: Saulo Miranda MD [Primary Care Provider] - Within 1 Week Disposition Disposition (needs filled in before D/C Order can be placed): Home, Self Care Charges/Coding Visit Charges Inpatient E&M: 15951 Disch Hosp >30min
[2024-11-09 12:47] VITALS: BP 129/86; PULSE 68; RESP 18; TEMP 37.1; O2SAT 98
--- NOTE | 2024-11-09 14:12 | PHA.DC_ITS ---
Pharmacy [facility] has performed discharge medication reconciliation and counseling for this patient. The patient's discharge medication list was reviewed for discrepancies and discrepancies were resolved. The patient was counseled on the following discharge medications and changes in medications for homegoing were reviewed. 1. LOPRESSOR The Reason for Use, instructions for use, and potential side effects were reviewed for all new medications. The patient's questions regarding all of their medications were answered. The patient was able to verbally demonstrate an understanding of their discharge medications. Medications at Discharge Home Medications allopurinol 300 mg tablet 300 mg PO DAILY 10/15/24 amitriptyline 25 mg tablet 25 mg PO DAILY 10/15/24 insulin glargine 100 unit/mL (3 mL) subcutaneous pen (Lantus Solostar U-100 Insulin) unit subcut 10/15/24 levetiracetam 500 mg tablet 500 mg PO BID 10/15/24 sitagliptin phosphate 100 mg tablet (Januvia) 100 mg PO DAILY 10/15/24 tamsulosin 0.4 mg capsule 0.4 mg PO DAILY 10/15/24 hydroxyzine pamoate 25 mg capsule 25 mg PO QHS PRN insomnia #30 CAPSULES 10/17/24 oxymetazoline 0.05 % nasal spray (12 Hour Nasal Relief [place]) 2 spray intranasal BID PRN Nasal congestion 30 days #0 mL 10/17/24 sennosides 8.6 mg-docusate sodium 50 mg tablet (Stimulant Laxative Plus) 2 tab PO BID #0 tabs 10/17/24 insulin lispro 100 unit/mL subcutaneous half-unit pen (Humalog Junior [place] (U-100)) See Protocol subcut TIDCM #15 mL 10/18/24 rosuvastatin 10 mg tablet 10 mg PO DAILY 1 month #30 tabs 10/18/24 metoprolol tartrate 25 mg tablet 25 mg PO BID #60 tabs 11/09/24 oxycodone myristate 18 mg capsule sprinkle extended release 12hr(DON'T CRUSH) (Xtampza ER) 18 mg PO BID 3 days #6 ea 11/09/24
== END 2024-11-09 13:00 | disposition home health service (06) ==
LOC: ED 13:39 → MS2 17:57 → MS3 10-31 18:17
PROVIDERS: Admitting Provider Student in an Organized Health Care Education/Training Program; Emergency Provider Emergency Medicine; PCP Family Medicine; Visit Provider Internal Medicine
DX: M48.061 Spinal stenosis, lumbar region without neurogenic claudication (principal); G40.909 Epilepsy, unspecified, not intractable, without status epilepticus; E11.65 Type 2 diabetes mellitus with hyperglycemia; Z79.4 Long term (current) use of insulin; R62.7 Adult failure to thrive; R53.81 Other malaise; M10.9 Gout, unspecified; G89.4 Chronic pain syndrome; E78.5 Hyperlipidemia, unspecified; I44.0 Atrioventricular block, first degree; R32 Unspecified urinary incontinence; M47.26 Other spondylosis with radiculopathy, lumbar region; N40.1 Benign prostatic hyperplasia with lower urinary tract symptoms; Z79.899 Other long term (current) drug therapy; F17.220 Nicotine dependence, chewing tobacco, uncomplicated; Z91.81 History of falling; Z79.01 Long term (current) use of anticoagulants; R51.9 Headache, unspecified; R00.0 Tachycardia, unspecified; N13.8 Other obstructive and reflux uropathy; W01.0XXA Fall on same level from slipping, tripping and stumbling without subsequent striking against object, initial encounter
CPT/HCPCS: 36415; 71275; 72100; 80048; 81001; 82962; 84156; 85025; 85027; 85379; 93005; 96361; 96372; 96374; 96375; 96376; 97110; 97116; 97162; 97166; 97530; 97535; 99221; 99283; 99406; Q9967; A4216; G0378; J2405

== ENCOUNTER 2024-11-26 13:30 | Observation (INO) | payer MEDICARE, SELFPAY ==
[2024-11-26] VITALS (8 sets, daily range): BP systolic 111–173; BP diastolic 11–112; PULSE 75–93; RESP 15–16; TEMP 36.5–36.6; O2SAT 93–99; BMI 26.4
--- NOTE | 2024-11-26 15:45 | CT_ITS ---
EXAM: CT Abdomen and Pelvis Without Intravenous Contrast CLINICAL INDICATION: RABIA HIP/BACK PAIN TECHNIQUE: Axial computed tomography images of the abdomen and pelvis without intravenous contrast. This CT exam was performed using one or more of the following dose reduction techniques: automated exposure control, adjustment of the mA and/or kV according to patient size, and/or use of iterative reconstruction technique. COMPARISON: No relevant prior studies available. FINDINGS: LUNG BASES: Unremarkable. No mass. No consolidation. MEDIASTINUM: Small esophageal hiatal hernia. ABDOMEN: LIVER: Fatty infiltration of the liver. GALLBLADDER AND BILE DUCTS: Unremarkable. No calcified stones. No ductal dilation. PANCREAS: Unremarkable. No ductal dilation. SPLEEN: Unremarkable. No splenomegaly. ADRENALS: Unremarkable. No mass. KIDNEYS AND URETERS: Bilateral renal cysts. No obstructing stones. No hydronephrosis. STOMACH AND BOWEL: Colonic diverticulosis without acute diverticulitis. No obstruction. PELVIS: APPENDIX: No findings to suggest acute appendicitis. BLADDER: Unremarkable. No stones. REPRODUCTIVE: Unremarkable as visualized. ABDOMEN and PELVIS: INTRAPERITONEAL SPACE: Unremarkable. No free air. No significant fluid collection. BONES/JOINTS: Degenerative disc disease throughout the lumbar spine. Degenerative facet arthropathy throughout the lumbar spine, most prominent in the lower lumbar spine. No acute fracture. No dislocation. SOFT TISSUES: Inguinal hernias, bilaterally. VASCULATURE: Scattered calcified atherosclerotic disease of aorta. No abdominal aortic aneurysm. LYMPH NODES: Unremarkable. No enlarged lymph nodes. CT/Abdomen/Pelvis without Cont IMPRESSION: 1. Small esophageal hiatal hernia. 2. Inguinal hernias, bilaterally. 3. Colonic diverticulosis without acute diverticulitis. 4. Degenerative changes lumbar spine as described. Reading Location: [id number]
--- NOTE | 2024-11-26 18:05 | EDS_ITS ---
HPI HPI - Fall History of Present Illness Chief Complaint: Fall Informant: patient and EMS Narrative Narrative: 89-year-old male states he was going from 1 room of his home to another and his right knee gave out on him which it has done in the past, causing him to fall to his buttocks. He has pain in both buttocks, and in his low back up to his mid back. He denies any other injuries. Pain in his right knee is mild. He denies any prodromal symptoms otherwise. Denies any recent illness. He states some type of social work assistant came to his home several weeks ago and told him that he was not okay to live by himself. States he uses a walker sometimes to help get around. [facility] Medical History Failure to thrive History of diabetes mellitus, type II History of seizure disorder Gout Drooping eyelid Home Medications ?Medication ?Instructions ?Recorded ?Last Taken ?Type allopurinol 300 mg tablet 300 mg PO DAILY 10/15/24 Unk nown History amitriptyline 25 mg tablet 25 mg PO DAILY 10/15/24 Unk nown History insulin glargine 100 unit/mL (3 unit subcut 10/15/24 U nknown History mL) subcutaneous pen (Lantus Solostar U-100 Insulin) levetiracetam 500 mg tablet 500 mg PO BID 10/15/24 Unk nown History sitagliptin phosphate 100 mg 100 mg PO DAILY 10/15/24 Unknown History tablet (Januvia) tamsulosin 0.4 mg capsule 0.4 mg PO DAILY 10/15/24 Unk nown History hydroxyzine pamoate 25 mg capsule 25 mg PO QHS PRN ins omnia #30 10/17/24 Unknown Rx CAPSULES oxymetazoline 0.05 % nasal spray 2 spray intranasal BI D PRN Nasal 10/17/24 Unknown Rx (12 Hour Nasal Relief [place]) congestion 30 days #0 mL sennosides 8.6 mg-docusate sodium 2 tab PO BID #0 tabs 10/17/24 Unknown Rx 50 mg tablet (Stimulant Laxative Plus) insulin lispro 100 unit/mL See Protocol subcut TIDCM # 15 mL 10/18/24 Unknown Rx subcutaneous half-unit pen (Humalog Andrews KwikPen (U-100)) rosuvastatin 10 mg tablet 10 mg PO DAILY 1 month #30 t abs 10/18/24 Unknown Rx metoprolol tartrate 25 mg tablet 25 mg PO BID #60 tabs 11/09/24 Unknown Rx oxycodone myristate 18 mg capsule 18 mg PO BID 3 days #6 ea 11/09/24 Unknown Rx sprinkle extended release 12hr(DON'T CRUSH) (Xtampza ER) Allergy/AdvReac Type Severity Reaction Status Date / Time Penicillins Allergy Mild Hives Verified 11/26/24 13:31 hydromorphone (From Dilaudid) Allergy Hallucinati Verified 11/26/24 13:31 ons ketorolac (From Toradol) Allergy Itching Verified 11/26/24 13:31 Family History Father Tuberculosis Surgical History History of back surgery Hx of laminectomy Social History household members: spouse housing: house Smoking Status: Never smoker Smokeless tobacco user: chewing tobacco alcohol intake: never what type of physical activity do you participate in: none do you feel safe at home: Yes ROS ROS ED Constitutional Constitutional ED: Denies chills or fever(s) Eyes Eyes: Denies change in vision or diplopia ENT ENT ED: Denies rhinorrhea or sore throat Cardiovascular Cardiovascular: Denies chest pain or palpitations Respiratory/Chest Respiratory/Chest: Denies cough or dyspnea Gastrointestinal Gastrointestinal: Denies abdominal pain, diarrhea, nausea or vomiting Genitourinary Genitourinary ED: Denies dysuria or hematuria Musculoskeletal Musculoskeletal: Reports back pain; Denies neck pain Integumentary Denies abscess or rash Neurologic Neurologic: Denies headache(s), paresthesias or weakness Psychiatric Psychiatric: Denies suicidal thoughts EXAM Physical Exam Const Vital Signs: 11/26/24 13:31 11/26/24 16:30 11/26/24 16:30 Temperature 97.8 F Temperature Source Oral Pulse Rate 76 77 Respiratory Rate 15 Respiratory Effort Normal Non-Labored Respiratory Depth Normal Respiratory Pattern Normal Blood Pressure 111/78 148/112 H Blood Pressure Mean 89 124 Pulse Ox 93 99 98 Oxygen Delivery Method Room Air Room Air 11/26/24 18:00 11/26/24 20:00 Temperature Temperature Source Pulse Rate 77 75 Respiratory Rate Respiratory Effort Respiratory Depth Respiratory Pattern Blood Pressure 173/90 H 148/99 H Blood Pressure Mean 117 115 Pulse Ox 99 98 Oxygen Delivery Method Positive well nourished and well developed General Appearance ED: well developed and NAD HEENT Reports moist mucous membranes normocephalic and atraumatic Eyes PERRL and EOMs intact bilaterally Neck full ROM and supple Resp normal respiratory effort and clear to auscultation bilaterally Cardio regular rate, regular rhythm and no murmurs GI non-tender and non-distended Auscultation: normoactive bowel sounds Palpation: soft Back/Spine no CVA tenderness Back/Spine Narrative: Diffuse subjective midline tenderness from the sacrum all the way to the mid- thoracic spine. No severe tenderness. No other back tenderness except for the buttocks bilaterally including the ischial tuberosities. General Back: other Limited range of motion due to pain but able to sit up with assistance Extremity normal to inspection Extremity Narrative: No significant discomfort with logroll bilaterally. No deformities in the legs. Right knee without effusion or bony tenderness. He has full range of motion all ligaments are stable with short endpoints with stressing and no significant discomfort. The greater trochanters are nontender. Pelvis is stable to AP compression. Full range of motion throughout both upper extremities without limitation or pain. General Extremety ED: Negative for edema, pulses abnormal or tenderness General Extremity: Negative for edema or pulses abnormal Neuro oriented x3, CN's II-XII intact bilaterally and no sensory deficits noted Sensorium / Orientation: awake and alert Motor Exam: strength 5/5 throughout Psych mental status grossly normal and thought process normal Skin no rashes or lesions noted and no wounds MDM MDM MDM Narrative Medical decision making narrative: We obtained a CT of his abdomen/pelvis without contrast, given the diffuse pain in his back as well as throughout the pelvis. On my interpretation there is no acute bony or intra-abdominal injury. I had staff attempt to get the patient up and weight-bear. He actually did really well. They stated that EMS said that he got up and walked to the door and greeted them after he called them and they came to get him. Patient states that he has difficulty performing ADLs for reasons that are unclear but his is his caregiver and she is here at the hospital getting a procedure, and I do not know any details about that. He does not have a medical reason to be admitted to the hospital right now. I am having social work evaluate him and intervene as able. After discussion with social work, it seems that the patient's is an inpatient in our hospital having had kyphoplasty and is slated to likely go to senior care facility tomorrow. Given this, they are recommending respite care for the patient. Patient is amenable to being admitted. There is no local family to come stay with him or pick him up, they are all out of town except for 1 apparently who is local but is not involved with him and is a drug addict according to a different family member per telephone, per social work. The patient discussing that a social work assistant told him he cannot live alone several weeks ago, this apparently happened a month ago, similar scenario when he needed respite care when his was not at home. They do have home health that comes occasionally to help, but they do not have 07/02 caregiver and the patient is not safe to be sent home by himself at this time according to social work. Therefore, discussing with hospitalist for admission. I did add labs and a urinalysis and they all look unremarkable. I also did a two-view chest x-ray which show interpretation shows a significant stomach bubble under an elevated left hemidiaphragm but otherwise unremarkable for anything acute. Lab Data Attestation: I reviewed the patient's lab results. Labs: Laboratory Results - last 24 hr 11/26/24 11/26/24 19:45 20:10 WBC 8.1 RBC 4.48 L Hgb 13.5 Hct 41.9 MCV 93.5 MCH 30.1 MCHC 32.2 RDW Std Deviation 46.7 H RDW Coeff of May 13.7 Plt Count 256 MPV 10.3 Immature Gran % (Auto) 0.200 Neut % (Auto) 80.2 H Lymph % (Auto) 14.0 L [place] % (Auto) 4.3 Eos % (Auto) 0.9 Baso % (Auto) 0.4 Absolute Neuts (auto) 6.5 Absolute Lymphs (auto) 1.13 Nucleated RBC % 0 Sodium 140 Potassium 4.0 Chloride 102 Carbon Dioxide 25.0 Anion Gap 13 BUN 16 Creatinine 0.78 Est GFR (MDRD) Non-Af 85 BUN/Creatinine Ratio 20.2 H Glucose 142 H Calcium 9.7 Urine Color Yellow Urine Clarity Clear Urine pH 7.0 Ur Specific [place] 1.010 Urine Protein 15 H Urine Glucose (UA) Normal Urine Ketones 50 H Urine Occult Blood Negative Urine Nitrite Negative Urine Bilirubin Negative Urine Urobilinogen Normal Ur Leukocyte Esterase Negative Radiography Diagnostic Testing: Clinical Impression(s) from Imaging Studies Abdomen/Pelvis CT 11/26/24 15:45 IMPRESSION: 1. Small esophageal hiatal hernia. 2. Inguinal hernias, bilaterally. 3. Colonic diverticulosis without acute diverticulitis. 4. Degenerative changes lumbar spine as described. Reading Location: [facility] Rhythm Strip Rhythm Strip: Sinus Rhythm Rate: 75 Ectopy: None Management Discussion w/another healthcare provider: Hospitalist and parish worker/Case management Discharge Plan Dx/Rx/DC Orders Clinical Impression: Debility, Accidental fall, Contusion of buttock, Acute lumbar myofascial strain Disposition Disposition: Acute Care Hospital [facility]
--- NOTE | 2024-11-26 19:55 | RAD_ITS ---
PROCEDURE: CHEST PA AND LATERAL 11/26/2024 REASON FOR EXAM: FALL, DEBILITY TECHNIQUE: Three-view AP and lateral chest. COMPARISON: Reclamation Worker from the chest CT 11/02/2024. RAD/Chest PA and Lateral IMPRESSION: Marked left hemidiaphragm elevation is seen, with adjacent left basilar atelect asis. No definite pulmonary edema is seen. No pleural effusion or pneumothorax is evident. The cardiomediastinal silhouette is stable, without evidence of cardiomegaly. A prominently calcified aorta is noted. Left glenohumeral joint degenerative changes are again noted. Thoracic rightward curvature is also noted. No acute osseous change is seen., although sensitivity may reduced, at least in part, due to the presence of generalized osteopenia. Reading Location: [place] [id number]
--- NOTE | 2024-11-26 19:55 | RAD_ITS ---
PROCEDURE: CHEST PA AND LATERAL 11/26/2024 REASON FOR EXAM: FALL, DEBILITY TECHNIQUE: Three-view AP and lateral chest. COMPARISON: Records Assistant from the chest CT 11/02/2024. RAD/Chest PA and Lateral IMPRESSION: Marked left hemidiaphragm elevation is seen, with adjacent left basilar atelect asis. No definite pulmonary edema is seen. No pleural effusion or pneumothorax is evident. The cardiomediastinal silhouette is stable, without evidence of cardiomegaly. A prominently calcified aorta is noted. Left glenohumeral joint degenerative changes are again noted. Thoracic rightward curvature is also noted. No acute osseous change is seen., although sensitivity may reduced, at least in part, due to the presence of generalized osteopenia. Reading Location: [place] [id number]
[2024-11-26 20:03] LABS: Absolute Lymphocyte Count 1.13 X10^3/uL (0.83-4.51); Absolute Neutrophil Count 6.5 X10^3/uL (2.0-7.7); Basophil# 0.03 X10^3/uL; Basophil% 0.4 % (0-1); Eosinophil# 0.07 X10^3/uL; Eosinophils% 0.9 % (0-5); Hematocrit 41.9 % (40-54); Hemoglobin 13.5 g/dL (13.0-16.5); Lymphocyte # 1.13 X10^3/ul (0.83-4.51); Mean Corp Hgb Conc 32.2 g/dL (32-36); Mean Corpuscular Hgb 30.1 pg (27.0-32.0); Mean Corpuscular Volume 93.5 fL (80-94); Mean Platelet Vol. 10.3 fl (6.2-12.0); Monocyte# 0.35 X10^3/uL; Monocyte% 4.3 % (0-10); NRBC Flagged by Analyzer 0 % (0-5); Neutrophil # 6.48 X10^3/uL (2.7-7.7); Neutrophil % 80.2 % (47-70); Platelet Count 256 K/mm3 (150-450); RBC Distribution Width CV 13.7 % (11.6-14.6); RBC Distribution Width SD 46.7 fl (35.1-43.9); Red Blood Count 4.48 M/mm3 (4.6-6.2); White Blood Count 8.1 K/mm3 (4.4-11.0)
[2024-11-26 20:20] LABS: Bacteria 0 SEEN /hpf (None Seen); Mucous, Urine 0 SEEN /hpf (<or=2+); Squamous Epithelial Cells - UA 0 SEEN /hpf (0-5)
[2024-11-26 20:28] LABS: Anion Gap 13 (5-15); BUN 16 mg/dL (4-19); BUN/Creat Ratio 20.2 RATIO (10-20); Calcium,Total 9.7 mg/dL (7.6-11.0); Chloride 102 mmol/L (98-108); Creatinine, Serum 0.78 mg/dL (0.70-1.20); EST Glomerular Filtration Rate 85 (>60); Glucose 142 mg/dL (70-99); Sodium Level 140 mmol/L (133-145)
[2024-11-26 20:47] LABS: Color, Urine Yellow (Yellow); Glucose, Dipstick Normal (Normal); Ketone-Dipstick 50 mg/dl (Negative); Leukocyte Esterase-Dipstick Negative /ul (Negative); Nitrite-Dipstick Negative (Negative); Occult Blood-Urine Negative /ul (Negative); Protein-Dipstick 15 mg/dl (Negative); Urine Bilirubin Dipstick Negative (Negative); Urine Clarity Clear (Clear); Urine Urobilinogen Normal (Normal)
--- NOTE | 2024-11-26 21:11 | PCM.HP.STD ---
[facility] - General General Date of Admission: 11/26/24 Date of Service: 11/26/24 Chief Complaint: Fall. 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, depression; on amitriptyline, gout; on allopurinol, BPH with history of urinary obstruction; on tamsulosin, OA; with spinal stenosis of lumbar region with radiculopathy with history of laminectomy x 2; with chronic low back pain followed by pain management on oxycodone 18 mg PO BID and chronic debility with frequent falls with adult [id number] causing patient to often use a walker to mobilize with recent admission here from October 31, 2023 to November 09, 2024 for adult [id number] with patient refusing ECF - but also unable to care for himself who presents to [facility] ER complaining of Fall. Mr. Wyatt states his symptoms began approximately one hour prior to arrival when he was at home and going from one room to another when his Right knee gave out on him (as it has many times in the past) causing him to fall onto his buttocks. He then experienced severe pain in both buttocks that radiated in to his mid back. He denies LOC, head trauma or any other significant injuries with his fall and his pain in is Right knee is reportedly mild. Unfortunately, his primarily takes care of his and she is currently hospitalized her after a recent kyphoplasty with plans to discharge to SNF for rehabilitation leaving the patient with no one to care for him. There is family out of town but apparently no one can come and help him return home at this time resulting in the hospitalist service being contacted to admit him. There was no reported fever, chills, visual changes, runny nose, sore throat, ear pain nausea, vomiting, diarrhea, abdominal pain, chest pain, shortness of breath, dysuria, headache or rash. He was then admitted to the general medical floor under observation status for ongoing care for status for a stay that is expected to be less than 2 midnights. [facility] Medical History Failure to thrive History of diabetes mellitus, type II History of seizure disorder Gout Drooping eyelid Home Medications ?Medication ?Instructions ?Recorded ?Last Taken ?Type allopurinol 300 mg tablet 300 mg PO DAILY 10/15/24 Unknown History amitriptyline 25 mg tablet 25 mg PO DAILY 10/15/24 Unknown History insulin glargine 100 unit/mL (3 unit subcut 10/15/24 Unknown History mL) subcutaneous pen (Lantus Solostar U-100 Insulin) levetiracetam 500 mg tablet 500 mg PO BID 10/15/24 Unknown History sitagliptin phosphate 100 mg 100 mg PO DAILY 10/15/24 Unknown History tablet (Januvia) tamsulosin 0.4 mg capsule 0.4 mg PO DAILY 10/15/24 Unknown History hydroxyzine pamoate 25 mg capsule 25 mg PO QHS PRN insomnia #30 10/17/24 Unknown Rx CAPSULES oxymetazoline 0.05 % nasal spray 2 spray intranasal BID PRN Nasal 10/17/24 Unknown Rx (12 Hour Nasal Relief [place]) congestion 30 days #0 mL sennosides 8.6 mg-docusate sodium 2 tab PO BID #0 tabs 10/17/24 Unknown Rx 50 mg tablet (Stimulant Laxative Plus) insulin lispro 100 unit/mL See Protocol subcut TIDCM #15 mL 10/18/24 Unknown Rx subcutaneous half-unit pen (Humalog Andrews KwikPen (U-100)) rosuvastatin 10 mg tablet 10 mg PO DAILY 1 month #30 tabs 10/18/24 Unknown Rx metoprolol tartrate 25 mg tablet 25 mg PO BID #60 tabs 11/09/24 Unknown Rx oxycodone myristate 18 mg capsule 18 mg PO BID 3 days #6 ea 11/09/24 Unknown Rx sprinkle extended release 12hr(DON'T CRUSH) (Xtampza ER) Allergy/AdvReac Type Severity Reaction Status Date / Time Penicillins Allergy Mild Hives Verified 11/26/24 13:31 hydromorphone (From Dilaudid) Allergy Hallucinati Verified 11/26/24 13:31 ons ketorolac (From Toradol) Allergy Itching Verified 11/26/24 13:31 Family History Father Tuberculosis Surgical History History of back surgery Hx of laminectomy Social History household members: spouse housing: house Smoking Status: Never smoker Smokeless tobacco user: chewing tobacco alcohol intake: never what type of physical activity do you participate in: none do you feel safe at home: Yes ROS ROS Narrative Review of Systems: Constitutional: Patient denies fever or chills. Eyes: Patient denies change in vision or discharge from eyes. ENT: Patient denies runny nose, sore throat or ear pain. Resp: Patient denies shortness of breath or cough. CV: Patient denies chest pain, palpitations, heart racing or lower extremity edema. GI: Patient denies abdominal pain, nausea, vomiting or diarrhea. : Patient denies dysuria or hematuria. MSK: Patient admits to acute worsening of chronic back pain after recent mechanical fall as per HPI. Skin: Patient denies rash, abscess, wounds or jaundice. Psych: Patient denies symptoms uncontrolled depression or anxiety. Neuro: Patient denies headache, paresthesias or focal neurologic deficits. Allergy: Patient denies lip swelling, tongue swelling or urticaria. Hematology: Patient denies easy bleeding or easy bruisability. Endocrinology: Patient denies polyuria, polydipsia, polyphagia or heat/cold intolerance. 14 point ROS otherwise negative save for positives noted above in HPI. Vital Signs Vital Signs Vital Signs: 11/26/24 13:31 11/26/24 16:30 11/26/24 16:30 Temperature 97.8 F Temperature Source Oral Pulse Rate 76 77 Respiratory Rate 15 Respiratory Effort Normal Non-Labored Respiratory Depth Normal Respiratory Pattern Normal Blood Pressure 111/78 148/112 H Blood Pressure Mean 89 124 Pulse Ox 93 99 98 Oxygen Delivery Method Room Air Room Air 11/26/24 18:00 11/26/24 20:00 Temperature Temperature Source Pulse Rate 77 75 Respiratory Rate Respiratory Effort Respiratory Depth Respiratory Pattern Blood Pressure 173/90 H 148/99 H Blood Pressure Mean 117 115 Pulse Ox 99 98 Oxygen Delivery Method Physical Exam Const alert, oriented x3, no apparent distress and average body habitus General Appearance: cooperative HEENT normocephalic, head/scalp atraumatic, hearing grossly normal bilaterally and moist oral mucous membranes Eyes PERRL, EOMs intact bilaterally and conjunctivae normal Neck no lymphadenopathy, supple and no JVD Resp normal respiratory effort, no retractions, no use of accessory muscles and clear to auscultation bilaterally Cardio regular rate and regular rhythm GI normal to inspection, nondistended, normoactive bowel sounds, soft to palpation, non-tender and non-distended Extremity normal to inspection, full ROM and no clubbing, cyanosis or edema Skin Skin Narrative: Patient is evidence of rash, abscess, wounds or jaundice. Neuro oriented x3, CN's II-XII intact bilaterally, moves all extremities and no focal motor deficits Sensorium / Orientation: awake, alert, oriented to person, oriented to place and oriented to time Speech: speech normal Psych affect normal Results Medical Records Data Attestation: I reviewed the patient's medical records Lab / Micro Data Attestation: I reviewed the patient's lab results. 11/26/24 19:45 11/26/24 19:45 Labs: Laboratory Results - last 24 hr 11/26/24 19:45: WBC 8.1, RBC 4.48 L, Hgb 13.5, Hct 41.9, MCV 93.5, MCH 30.1, MCHC 32.2, RDW Std Deviation 46.7 H, RDW Coeff of May 13.7, Plt Count 256, MPV 10.3, Immature Gran % (Auto) 0.200, Neut % (Auto) 80.2 H, Lymph % (Auto) 14.0 L, [place] % (Auto) 4.3, Eos % (Auto) 0.9, Baso % (Auto) 0.4, Absolute Neuts (auto) 6.5, Absolute Lymphs (auto) 1.13, Nucleated RBC % 0, Sodium 140, Potassium 4.0, Chloride 102, Carbon Dioxide 25.0, Anion Gap 13, BUN 16, Creatinine 0.78, Est GFR (MDRD) Non-Af 85, BUN/Creatinine Ratio 20.2 H, Glucose 142 H, Calcium 9.7 11/26/24 20:10: Urine Color Yellow, Urine Clarity Clear, Urine pH 7.0, Ur Specific [place] 1.010, Urine Protein 15 H, Urine Glucose (UA) Normal, Urine Ketones 50 H, Urine Occult Blood Negative, Urine Nitrite Negative, Urine Bilirubin Negative, Urine Urobilinogen Normal, Ur Leukocyte Esterase Negative Rhythm Strip Rhythm Strip: Sinus Rhythm Rate: 75 Ectopy: None Imaging Radiology Impression Abdomen/Pelvis CT 11/26/24 15:45 IMPRESSION: 1. Small esophageal hiatal hernia. 2. Inguinal hernias, bilaterally. 3. Colonic diverticulosis without acute diverticulitis. 4. Degenerative changes lumbar spine as described. Reading Location: [facility] Assessment & Plan Assessment/Plan (1) Accidental fall: QUALIFIERS: Encounter type: initial encounter Qualified Code(s): W19.XXXA - Unspecified fall, initial encounter (2) Contusion of buttock: QUALIFIERS: Encounter type: initial encounter Qualified Code(s): S30.0XXA - Contusion of lower back and pelvis, initial encounter (3) Acute lumbar myofascial strain: QUALIFIERS: Encounter type: initial encounter Qualified Code(s): S39.012A - Strain of muscle, fascia and tendon of lower back, initial encounter (4) Spinal stenosis of lumbar region with radiculopathy: (5) History of back surgery: (6) Hx of laminectomy: (7) Debility: (8) History of seizure disorder: PLAN: Plan 1. Fall at Home in the setting of previously known OA; with spinal stenosis of lumbar region with radiculopathy with history of laminectomy x 2; with chronic low back pain followed by pain management on oxycodone 18 mg PO BID and chronic debility with frequent falls with adult [id number] causing patient to often use a walker to mobilize now with Contusion of Buttock and Acute Lumbar Myofascial Strain - Admit to general medical floor under observation status. Continue home medications as previous. Finally, we will consult PT/OT and Case Management said the patient can hopefully be discharged to ECF with his soon as possible if no other family members will come and take care of him. 2. Recent admission here from October 31, 2023 to November 09, 2024 for adult [id number] with patient refusing ECF - but also unable to care for himself complicating #1 - Noted with similar scenario unfolding this time. 3. Essential hypertension; on metoprolol BID - Maintain current treatment. 4. Hyperlipidemia; on rosuvastatin - Resume statin. 5. DM-2; of unknown control on sitagliptin, insulin glargine and insulin lispro TID - Hold sitagliptin but continue insulin glargine and cover with SSI. 6. History of seizure disorder; on levetiracetam - Current regimen to be continued. 7. 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 8. Depression; on amitriptyline - Resume amitriptyline as before. 9. Gout; on allopurinol - Stable with no evidence of acute flare at this time. Continue allopurinol as previous. 10. BPH with history of urinary obstruction; on tamsulosin - Stable. 11. DVT prophylaxis - Heparin 5,000U sq BID plus SCD's. Total time: Approximately (but not less than) 45 minutes. Charges/Coding Visit Charges OBSV E&M: 08852 Observ/hosp same date L1
[2024-11-26 21:28] LABS: Red Blood Cells-Urine 0-5 SEEN /hpf (0-5); White Blood Cells 0-5 SEEN /hpf (0-5)
--- NOTE | 2024-11-26 22:09 | CM.ED ---
Social work This SW was contacted by Genie CEJA per Dr. Salazar to meet with patient due to patient presenting to [facility] ED with similar complaints as the last time patient's was admitted (patient's is currently admitted to acute). SW entered patient's room, introducing self and role at [facility]. Patient welcomed visit and stated feeling pretty rough. During SW assessment, patient appeared confused about length of time patient's had been admitted to [facility] acute. Patient stated it had only been a few days, but patient's has been admitted since 11/20/24. Patient stated only falling today since patient's has not been home to help take care of patient. Patient stated having HHC with nurses coming out a few times per week, but patient stated not knowing the last time HHC was out or knowing which company HHC is through. Patient stated having granddaughters (Ana, Latasha, and Colleen) come to check in, but not knowing the last time this was either. Patient stated feeling as if patient should not go home alone and reported that patient's son, Benedict, is sometimes there, but sometimes out on the motorcycle; I can't depend on Benedict. Patient was oriented to time, place, and person. Patient stated feeling as if patient is unable to take care of self at home without patient's being there. Patient expressed agreement to being admitted to acute should hospitalist agree. Patient stated being open to [facility] if patient's old lady agrees to it as well. Patient was agreeable and expressed understanding that patient and patient's need extra help. Due to patient's fall, inability to care for self at home safely, inability to check own blood sugar, and having limited supports, patient would benefit from admission to acute. Doctor updated. Plan: admission to acute; RN CM/SW team to follow for discharge planning needs that may arise. Brook Coy, MARKET ASSET PROTECTION MANAGER, STAGE SETTINGS PAINTER
--- NOTE | 2024-11-26 22:09 | CM.ED ---
Social work This SW was contacted by Genie CEJA per Dr. Salazar to meet with patient due to patient presenting to [facility] ED with similar complaints as the last time patient's was admitted (patient's is currently admitted to acute). SW entered patient's room, introducing self and role at [facility]. Patient welcomed visit and stated feeling pretty rough. During SW assessment, patient appeared confused about length of time patient's had been admitted to [facility] acute. Patient stated it had only been a few days, but patient's has been admitted since 11/20/24. Patient stated only falling today since patient's has not been home to help take care of patient. Patient stated having HHC with nurses coming out a few times per week, but patient stated not knowing the last time HHC was out or knowing which company HHC is through. Patient stated having granddaughters (Ana, Latasha, and Colleen) come to check in, but not knowing the last time this was either. Patient stated feeling as if patient should not go home alone and reported that patient's son, Benedict, is sometimes there, but sometimes out on the motorcycle; I can't depend on Benedict. Patient was oriented to time, place, and person. Patient stated feeling as if patient is unable to take care of self at home without patient's being there. Patient expressed agreement to being admitted to acute should hospitalist agree. Patient stated being open to [facility] if patient's old lady agrees to it as well. Patient was agreeable and expressed understanding that patient and patient's need extra help. Due to patient's fall, inability to care for self at home safely, inability to check own blood sugar, and having limited supports, patient would benefit from admission to acute. Doctor updated. Plan: admission to acute; RN CM/SW team to follow for discharge planning needs that may arise. Brook Coy, APPIAN BPM DEVELOPER, WOOD HEEL FLAP INSERTER
[2024-11-26] MEDS: 0.9% Normal Saline (1000mL) 1,000 ML 70 ML IV (22:45)
[2024-11-26] MEDS: Morphine 2 MG/ML Syringe IV (22:45)
[2024-11-26] MEDS: Heparin Injection (Vial) 5,000 UNIT/ML VIAL 5000 UNIT SC (22:51)
[2024-11-26] MEDS: Ondansetron 4 MG/2 ML Vial IV (22:58)
[2024-11-26] MEDS: Metoprolol Tartrate 25 MG Tablet PO (23:11)
[2024-11-26] MEDS: Senna/Docusate Sodium 1 Tablet 2 TABLET PO (23:11)
[2024-11-26] MEDS: levETIRAcetam 500 MG Tablet PO (23:11)
[2024-11-26] MEDS: Insulin Glargine-YFGN 100 UNIT/ML Pen SC (23:12)
[2024-11-26 23:48] LABS: Bedside Glucose 131 mg/dL (74-106)
[2024-11-27] VITALS (7 sets, daily range): BP systolic 95–133; BP diastolic 65–74; PULSE 78–99; RESP 16–18; TEMP 36.4–36.8; O2SAT 93–95; BMI 26.4
[2024-11-27] MEDS: Morphine 2 MG/ML Syringe IV (03:12)
[2024-11-27] MEDS: oxyCODONE HCl Cr 10 MG Tablet 20 MG PO ×2 (06:01→21:12)
[2024-11-27 06:22] LABS: Bedside Glucose 131 mg/dL (74-106)
[2024-11-27 07:29] LABS: Hemoglobin A1c 6.5 % (<=5.6)
[2024-11-27 07:38] LABS: Phosphorus 2.8 mg/dL (2.7-4.5); Thyroid Stim Hormone (TSH) 0.804 uIU/mL (0.300-4.200)
[2024-11-27] MEDS: Tamsulosin HCl 0.4 MG Capsule PO (08:55)
[2024-11-27] MEDS: Allopurinol 300 MG Tablet PO (08:55)
[2024-11-27] MEDS: Senna/Docusate Sodium 1 Tablet 2 TABLET PO ×2 (08:55→21:13)
[2024-11-27] MEDS: Metoprolol Tartrate 25 MG Tablet PO ×2 (08:55→21:13)
[2024-11-27] MEDS: Heparin Injection (Vial) 5,000 UNIT/ML VIAL 5000 UNIT SC ×2 (08:56→21:10)
[2024-11-27] MEDS: Acetaminophen 325 MG Tablet 650 MG PO (08:56)
[2024-11-27] MEDS: levETIRAcetam 500 MG Tablet PO ×2 (08:56→21:12)
[2024-11-27] MEDS: Ondansetron 4 MG/2 ML Vial IV (08:58)
[2024-11-27] MEDS: 0.9% Saline Lock 10 ML Syringe IV ×3 (08:58→21:16)
[2024-11-27 11:45] LABS: Bedside Glucose 140 mg/dL (74-106)
--- NOTE | 2024-11-27 12:29 | CASEMGMT ---
Discharge Planning Referral sent to [facility]. Inge El DC Planning Asst.
--- NOTE | 2024-11-27 12:29 | CASEMGMT ---
Discharge Planning Referral sent to [facility]. Inge El DC Planning Asst.
--- NOTE | 2024-11-27 12:38 | CASEMGMT ---
[facility] has accepted and will submit for precert. SW updated. Inge El DC Planning Asst.
--- NOTE | 2024-11-27 12:38 | CASEMGMT ---
[facility] has accepted and will submit for precert. SW updated. Inge El DC Planning Asst.
--- NOTE | 2024-11-27 14:50 | CASEMGMT ---
Social Work- SW met with pt to discuss discharge planning. Pt would like [facility]. [facility] notified of referral request. [facility] accepted and started precert. SW updated pt. Pt agreeable to discharge plans. SW remains available to follow. Plan: [facility]; pend precert IZZY Piña
--- NOTE | 2024-11-27 16:28 | PCM.PN.HOSP ---
Reason for Visit Reason for Visit: Diagnoses Spinal stenosis, lumbar region without neurogenic claudication (11/26/24) Radiculopathy, lumbar region (11/26/24) Other malaise (11/26/24) Contusion of lower back and pelvis, initial encounter (11/26/24) Strain of muscle, fascia and tendon of lower back, initial encounter (11/26/24) Unspecified fall, initial encounter (11/26/24) Personal history of other diseases of the nervous system and sense organs (11/26/24) Other specified postprocedural states (11/26/24) Subjective Subjective Patient was seen and examined today, he was admitted yesterday due to failure to thrive at home and frequent falls. His still remains in the hospital at this time, she had a kyphoplasty yesterday here. Patient has agreed to go to an extended care facility for rehab services, he is being seen by PT and OT, they pre-CERT is in place presently. Objective Data Objective Data Vital Signs: Vital Signs Temp Pulse Resp BP Pulse Ox O2 Del Method 97.8 F 99 16 95/65 95 Room Air 11/27/24 14:14 11/27/24 14:14 11/27/24 14:14 11/27/24 14:14 11/27/24 14:14 11/27/24 14:14 Oxygen Delivery Method Room Air Weight: 80.9 kg Body Mass Index (BMI) 26.4 Intake & Output: Intake and Output for Last 24 Hours 11/25/24 11/26/24 11/27/24 23:59 23:59 23:59 Intake Total 1436.83 / 1436.83 Output Total 1100 / 1100 Balance 336.83 / 336.83 Lab / Micro Data 11/26/24 19:45 11/26/24 19:45 Labs: Laboratory Results - last 24 hr 11/26/24 19:45: WBC 8.1, RBC 4.48 L, Hgb 13.5, Hct 41.9, MCV 93.5, MCH 30.1, MCHC 32.2, RDW Std Deviation 46.7 H, RDW Coeff of May 13.7, Plt Count 256, MPV 10.3, Immature Gran % (Auto) 0.200, Neut % (Auto) 80.2 H, Lymph % (Auto) 14.0 L, [place] % (Auto) 4.3, Eos % (Auto) 0.9, Baso % (Auto) 0.4, Absolute Neuts (auto) 6.5, Absolute Lymphs (auto) 1.13, Nucleated RBC % 0, Sodium 140, Potassium 4.0, Chloride 102, Carbon Dioxide 25.0, Anion Gap 13, BUN 16, Creatinine 0.78, Est GFR (MDRD) Non-Af 85, BUN/Creatinine Ratio 20.2 H, Glucose 142 H, Calcium 9.7 11/26/24 19:49: Magnesium 2.0 11/26/24 20:10: Urine Color Yellow, Urine Clarity Clear, Urine pH 7.0, Ur Specific [place] 1.010, Urine Protein 15 H, Urine Glucose (UA) Normal, Urine Ketones 50 H, Urine Occult Blood Negative, Urine Nitrite Negative, Urine Bilirubin Negative, Urine Urobilinogen Normal, Ur Leukocyte Esterase Negative, Urine RBC 0-5 SEEN, Urine WBC 0-5 SEEN, Ur Squamous Epith Cells 0 SEEN, Urine Bacteria 0 SEEN, Urine Mucus 0 SEEN 11/26/24 23:07: POC Glucose 131 H 11/27/24 05:35: Hemoglobin A1c 6.5 H, Phosphorus 2.8, TSH 0.804 11/27/24 06:01: POC Glucose 131 H 11/27/24 11:23: POC Glucose 140 H Radiography Diagnostic Testing: Radiology Impression Abdomen/Pelvis CT 11/26/24 15:45 IMPRESSION: 1. Small esophageal hiatal hernia. 2. Inguinal hernias, bilaterally. 3. Colonic diverticulosis without acute diverticulitis. 4. Degenerative changes lumbar spine as described. Reading Location: [facility] Chest X-Ray 11/26/24 19:55 IMPRESSION: Marked left hemidiaphragm elevation is seen, with adjacent left basilar atelectasis. No definite pulmonary edema is seen. No pleural effusion or pneumothorax is evident. The cardiomediastinal silhouette is stable, without evidence of cardiomegaly. A prominently calcified aorta is noted. Left glenohumeral joint degenerative changes are again noted. Thoracic rightward curvature is also noted. No acute osseous change is seen., although sensitivity may reduced, at least in part, due to the presence of generalized osteopenia. Reading Location: [place] [address] Rhythm Strip Rhythm Strip: Sinus Rhythm Rate: 75 Ectopy: None Physical Exam Const alert, oriented x3 and no apparent distress General Appearance: cooperative, well kempt and well developed Orientation / Consciousness: awake, oriented to person, oriented to place and oriented to time HEENT normocephalic, head/scalp atraumatic and moist oral mucous membranes Eyes PERRL, EOMs intact bilaterally and conjunctivae normal Neck supple, no JVD, thyroid normal and no carotid bruits General: trachea midline Resp normal respiratory effort, no retractions, no use of accessory muscles and clear to auscultation bilaterally Auscultation: Negative for rales, rhonchi or wheezes Cardio regular rate, regular rhythm, S1 normal heart sound, S2 normal heart sound, no murmurs, no rub and no gallops GI normal to inspection, nondistended, normoactive bowel sounds, soft to palpation, non-tender and non-distended Extremity no clubbing, cyanosis or edema Skin no rashes or lesions noted General Skin Exam: no breakdown Neuro oriented x3, CN's II-XII intact bilaterally, moves all extremities, no focal motor deficits and no sensory deficits noted Sensorium / Orientation: awake and alert Speech: speech normal Psych affect normal Assessment & Plan Assessment/Plan (1) Debility: PLAN: Plan 1. Acute on chronic debility-PT and OT will see the patient, the plan is for the patient to go to a retirement facility for short-term rehab services. #2 essential hypertension-the patient will remain on his present medications, blood pressure medications will be adjusted as needed #3 hyperlipidemia-patient is on a statin #4 type 2 diabetes-patient will receive sliding scale insulin as indicated by fingerstick blood sugars #5 history of seizure disorder-patient is on Keppra Total clinical time spent by myself addressing the patient's medical issues, reviewing all of his data, and collaborating the patient's care team: 35 minutes Charges/Coding Visit Charges Inpatient E&M: 98197 Subs Hosp L2
[2024-11-27] MEDS: Insulin Glargine-YFGN 100 UNIT/ML Pen SC (21:11)
[2024-11-27] MEDS: Atorvastatin Calcium 20 MG Tablet PO (21:12)
[2024-11-27] MEDS: Amitriptyline 25 MG Tablet PO (21:13)
[2024-11-27 23:01] LABS: Bedside Glucose 135 mg/dL (74-106)
[2024-11-28] VITALS (7 sets, daily range): BP systolic 84–113; BP diastolic 54–73; PULSE 79–93; RESP 16–18; TEMP 36.5–36.9; O2SAT 92–95; BMI 26.5
[2024-11-28 00:29] LABS: Bedside Glucose 112 mg/dL (74-106)
[2024-11-28] MEDS: Acetaminophen 325 MG Tablet 650 MG PO (01:01)
[2024-11-28 06:51] LABS: Bedside Glucose 103 mg/dL (74-106)
[2024-11-28 07:10] LABS: Phosphorus 2.4 mg/dL (2.7-4.5)
[2024-11-28] MEDS: Allopurinol 300 MG Tablet PO (07:35)
--- NOTE | 2024-11-28 08:55 | CASEMGMT ---
Discharge Planning Updates sent to [facility]. Inge El DC Planning Asst.
--- NOTE | 2024-11-28 08:55 | CASEMGMT ---
Discharge Planning Updates sent to [facility]. Inge El DC Planning Asst.
[2024-11-28] MEDS: Tamsulosin HCl 0.4 MG Capsule PO (09:20)
[2024-11-28] MEDS: oxyCODONE HCl Cr 10 MG Tablet 20 MG PO (09:21)
[2024-11-28] MEDS: Heparin Injection (Vial) 5,000 UNIT/ML VIAL 5000 UNIT SC (09:21)
[2024-11-28] MEDS: levETIRAcetam 500 MG Tablet PO (09:21)
[2024-11-28] MEDS: Metoprolol Tartrate 25 MG Tablet PO (09:21)
--- NOTE | 2024-11-28 10:37 | CASEMGMT ---
[facility] has obtained auth to admit. SW updated. Inge El DC Planning Asst.
--- NOTE | 2024-11-28 10:37 | CASEMGMT ---
[facility] has obtained auth to admit. SW updated. Inge El DC Planning Asst.
--- NOTE | 2024-11-28 15:35 | TREXTCAR_ITS ---
Diet Diet Order/Speech Therapy: 11/26/24 22:33 Diet: Consistent Carb - Calorie Controlled Food consistency:: Mechanical (Minced/Moist) Liquid Consistency:: Regular/Thin Dietary Modifications:: Consistent Carbohydrate Type of Dietary Supplement:: Glucerna Shake Diet Comments: ground meats only very soft fruits/veggies as pt is edentulous, vanilla glu How many daily calories?: 2000 calorie Routine Orders/Code Status Code Status: Full Code DC O2, CPAP, BIPAP needs Home O2 Discharge instructions: No Wound(s) bilat legs: Wound Type: multiple DEBORAH scratches Therapies Weight Bearing: Full weight bearing (use walker) Physical Therapy: Eval and Treat Occupational Therapy: Eval and Treat Problem/Diagnosis (1) Debility: Status: Acute Code(s): R53.81 - Other malaise (2) Spinal stenosis of lumbar region with radiculopathy: Status: Acute Code(s): M48.061 - Spinal stenosis, lumbar region without neurogenic claudication; M54.16 - Radiculopathy, lumbar region Plan 1. Acute on chronic debility-PT and OT will see the patient, the plan is for the patient to go to a senior care facility for short-term rehab services. #2 essential hypertension-the patient will remain on his present medications, blood pressure medications will be adjusted as needed #3 hyperlipidemia-patient is on a statin #4 type 2 diabetes-patient will receive sliding scale insulin as indicated by fingerstick blood sugars #5 history of seizure disorder-patient is on Keppra Total clinical time spent by myself addressing the patient's medical issues, reviewing all of his data, and collaborating the patient's care team: 35 minutes Allergies/Procedures Done in Hospital Allergies Penicillins Allergy (Mild, Verified 11/26/24 13:31) Hives hydromorphone (From Dilaudid) Allergy (Verified 11/26/24 13:31) Hallucinations ketorolac (From Toradol) Allergy (Verified 11/26/24 13:31) Itching Procedures: None Type of Care/Length of Stay Estimated LOS: Convalescent Care Less Than 30 days Type of Care Needed: Skilled Rehab Potential: Good Prognosis: Good Additional Orders/Day of Discharge H&P will serve as current which was dated: 11/26/24 Day of Discharge: 11/28/24 Discharge Plan Admission Admit Date/Time: 11/26/24 21:39 Primary Reason for Your Visit: debility Attending Provider: Gray Pierce Primary Care Provider: Saulo Miranda Consulting Providers: Isaiah Gómez Discharge Orders/Prescriptions Prescriptions: New acetaminophen 325 mg Tablet 650 mg PO Q6H PRN PRN (Reason: Pain 1-5/10 Or Fever>100.7) Qty: 0 0RF magnesium hydroxide 400 mg/5 mL Suspension 30 ml PO DAILY PRN PRN (Reason: Constipation) Qty: 0 0RF alum-mag hydroxide-simeth [Mag-Al Plus Extra Strength] 400-400-40 mg/5 mL Suspension 30 ml PO Q6H PRN PRN (Reason: Gastric Burning) Qty: 0 0RF insulin lispro [Humalog KwikPen Insulin] 100 unit/mL Insulin Pen See Protocol subcut ACHS Qty: 0 0RF Protocol: 3. Sliding Scale Insulin Med Dosing Condition: 150-189 mg/dl = 1 unit Condition: 190-229 mg/dl = 2 units Condition: 230-269 mg/dl = 3 units Condition: 270-309 mg/dl = 4 units Condition: 310-349 mg/dl = 5 units Condition: 350-399 mg/dl = 6 units Condition: 400-449 mg/dl = 7 units Condition: Greater than 449 call physician Protocol Text: Suggested for: - Patients on Total Daily Insulin Dose of 37-55 units - Obese, infected, or steroid patients MEDIUM DOSING ALGORITHIM oxycodone 10 mg Tablet,Oral Only,Ext.Rel.12 Hr 20 mg PO BID 2 Days Qty: 8 0RF Continued levetiracetam 500 mg tablet 500 mg PO BID amitriptyline 25 mg tablet 25 mg PO DAILY tamsulosin 0.4 mg capsule 0.4 mg PO DAILY allopurinol 300 mg tablet 300 mg PO DAILY sennosides-docusate sodium [Stimulant Laxative Plus] 8.6-50 mg Tablet 2 tab PO BID Qty: 0 0RF hydroxyzine pamoate 25 mg capsule 25 mg PO QHS PRN (Reason: insomnia) Qty: 30 0RF oxymetazoline [12 Hour Nasal Relief [place]] 0.05 % spray,non-aerosol 2 spray intranasal BID PRN (Reason: Nasal congestion) 30 Days Qty: 0 0RF rosuvastatin 10 mg tablet 10 mg PO DAILY 30 Days Qty: 30 2RF metoprolol tartrate 25 mg Tablet 25 mg PO BID Qty: 60 0RF Discontinued Januvia 100 mg tablet 100 mg PO DAILY insulin lispro [Humalog Andrews KwikPen U-100] 100 unit/mL insulin pen, half- unit See Protocol subcut TIDCM Qty: 15 3RF Protocol: 3. Sliding Scale Insulin Med Dosing Condition: 150-189 mg/dl = 1 unit Condition: 190-229 mg/dl = 2 units Condition: 230-269 mg/dl = 3 units Condition: 270-309 mg/dl = 4 units Condition: 310-349 mg/dl = 5 units Condition: 350-399 mg/dl = 6 units Condition: 400-449 mg/dl = 7 units Condition: Greater than 449 call physician Protocol Text: Suggested for: - Patients on Total Daily Insulin Dose of 37-55 units - Obese, infected, or steroid patients MEDIUM DOSING ALGORITHIM Rx Instructions: Call PCP if Glucose <70 or > 400 Xtampza ER 18 mg cap,sprinkl,ER12hr(DONT CRUSH) 18 mg PO BID 3 Days Qty: 6 0RF Rx Instructions: must administer with a meal/food No Action insulin glargine [Lantus Solostar U-100 Insulin] 100 unit/mL (3 mL) insulin pen subcut Patient Comments: unknown dosage Referrals / Follow Up: Saulo Miranda MD [Primary Care Provider] - Disposition Disposition (needs filled in before D/C Order can be placed): Care Home Facility
--- NOTE | 2024-11-28 15:45 | DS.PCM_ITS ---
Providers Date of Admission: 11/26/24 Date of Discharge: 11/28/24 Primary Care Physician: Dr. Saulo Miranda MD Reason For Visit: FALL WITH BACK PAIN Diagnosis Discharge Diagnosis (1) Debility: Status: Acute Code(s): R53.81 - Other malaise (2) Spinal stenosis of lumbar region with radiculopathy: Status: Acute Code(s): M48.061 - Spinal stenosis, lumbar region without neurogenic claudication; M54.16 - Radiculopathy, lumbar region Plan 1. Acute on chronic debility-PT and OT will see the patient, the plan is for the patient to go to a [place] [facility] facility for short-term rehab services. #2 essential hypertension-the patient will remain on his present medications, blood pressure medications will be adjusted as needed #3 hyperlipidemia-patient is on a statin #4 type 2 diabetes-patient will receive sliding scale insulin as indicated by fingerstick blood sugars #5 history of seizure disorder-patient is on Keppra Total clinical time spent by myself addressing the patient's medical issues, reviewing all of his data, and collaborating the patient's care team: 35 minutes Medications at Discharge Home Medications allopurinol 300 mg tablet 300 mg PO DAILY 10/15/24 amitriptyline 25 mg tablet 25 mg PO DAILY 10/15/24 insulin glargine 100 unit/mL (3 mL) subcutaneous pen (Lantus Solostar U-100 Insulin) unit subcut 10/15/24 levetiracetam 500 mg tablet 500 mg PO BID 10/15/24 tamsulosin 0.4 mg capsule 0.4 mg PO DAILY 10/15/24 hydroxyzine pamoate 25 mg capsule 25 mg PO QHS PRN insomnia #30 CAPSULES 10/17/24 oxymetazoline 0.05 % nasal spray (12 Hour Nasal Relief [place]) 2 spray intranasal BID PRN Nasal congestion 30 days #0 mL 10/17/24 sennosides 8.6 mg-docusate sodium 50 mg tablet (Stimulant Laxative Plus) 2 tab PO BID #0 tabs 10/17/24 rosuvastatin 10 mg tablet 10 mg PO DAILY 1 month #30 tabs 10/18/24 metoprolol tartrate 25 mg tablet 25 mg PO BID #60 tabs 11/09/24 acetaminophen 325 mg tablet 650 mg (2 x 325 mg) PO Q6H PRN PRN Pain 1-5/10 Or Fever>100.7 #0 tabs 11/28/24 aluminum-mag hydroxide-simethicone 400 mg-400 mg-40 mg/5 mL oral susp (Mag-Al Plus Extra Strength) 30 ml PO Q6H PRN PRN Gastric Burning #0 mL 11/28/24 insulin lispro 100 unit/mL subcutaneous pen (Humalog KwikPen (U-100) Insulin) See Protocol subcut ACHS #0 mL 11/28/24 magnesium hydroxide 400 mg/5 mL oral suspension 30 ml PO DAILY PRN PRN Constipation #0 mL 11/28/24 oxycodone 10 mg tablet,crush resistant,extended release 12 hr 20 mg (2 x 10 mg) PO BID 2 days #8 tabs 11/28/24 Hospital Course Operations None Procedures None Summary of Care Provided Minutes Spent on Discharge: 31 Hospital Course: This 89-year-old white male was seen in the emergency room at [facility] after falling at home, he had no serious injuries but was too weak to perform ADLs. Patient's was hospitalized and he was alone in the house, evaluation in the emergency room included labs which revealed a normal CBC, chemistry profile was unremarkable except for glucose of 142. Patient's imaging studies did not show any fracture, patient was placed in observation status on [facility] 3 and seen by PT and OT, it was recommended that the patient consider a skilled care facility for short-term rehab services and the patient agreed after his talked with him about it. On 11/28/2024, patient was seen and examined:alert, oriented x3 and no apparent distress General Appearance: cooperative, well kempt and well developed Orientation / Consciousness: awake, oriented to person, oriented to place and oriented to time HEENT normocephalic, head/scalp atraumatic and moist oral mucous membranes Eyes PERRL, EOMs intact bilaterally and conjunctivae normal Neck supple, no JVD, thyroid normal and no carotid bruits General: trachea midline Resp normal respiratory effort, no retractions, no use of accessory muscles and clear to auscultation bilaterally Auscultation: Negative for rales, rhonchi or wheezes Cardio regular rate, regular rhythm, S1 normal heart sound, S2 normal heart sound, no murmurs, no rub and no gallops GI normal to inspection, nondistended, normoactive bowel sounds, soft to palpation, non-tender and non-distended Extremity no clubbing, cyanosis or edema Skin no rashes or lesions noted General Skin Exam: no breakdown Neuro oriented x3, CN's II-XII intact bilaterally, moves all extremities, no focal motor deficits and no sensory deficits noted Sensorium / Orientation: awake and alert Speech: speech normal Psych affect normal Patient was transferred to the [facility] in stable condition on 11/28/2024 Weight / BMI Weight Weight: 81.2 kg Body Mass Index (BMI) 26.5 ABG / Lab / Microbiology Data 11/26/24 19:45 11/26/24 19:45 Laboratory: Laboratory Results - last 24 hr 11/27/24 16:36: POC Glucose 112 H 11/27/24 21:08: POC Glucose 135 H 11/28/24 05:25: Phosphorus 2.4 L 11/28/24 06:30: POC Glucose 103 D/C Instructions DC O2, CPAP, BIPAP Needs Home O2 Discharge instructions: No Meaningful Use Info Meaningful Use Meaningful Use Diagnoses (Choose all that apply): None applicable Ischemic Stroke Statin Dosing Therapy Reference: STATIN DOSE THERAPY REFERENCE: * Patients > 75 years receive moderate or high dose statin therapy. * Patients 75 years or YOUNGER should receive HIGH intensity statin dose unless contraindicated. You will be required to document reason for non-treatment if statin daily dose does not meet guidelines. HIGH DOSE STATIN THERAPY DAILY Atorvastatin > than or = to 40 mg Rosuvastatin > than or = to 20 mg Amlodipine + Atorvastatin > than or = to 2.5/40 mg Ezetimibe + Simvastatin 10/80 mg Simvastatin 80mg Discharge Plan Admission Admit Date/Time: 11/26/24 21:39 Primary Reason for Your Visit: debility Attending Provider: Gray Pierce Primary Care Provider: Saulo Miranda Consulting Providers: Isaiah Gómez Discharge Orders/Prescriptions Prescriptions: New acetaminophen 325 mg Tablet 650 mg PO Q6H PRN PRN (Reason: Pain 1-5/10 Or Fever>100.7) Qty: 0 0RF magnesium hydroxide 400 mg/5 mL Suspension 30 ml PO DAILY PRN PRN (Reason: Constipation) Qty: 0 0RF alum-mag hydroxide-simeth [Mag-Al Plus Extra Strength] 400-400-40 mg/5 mL Suspension 30 ml PO Q6H PRN PRN (Reason: Gastric Burning) Qty: 0 0RF insulin lispro [Humalog KwikPen Insulin] 100 unit/mL Insulin Pen See Protocol subcut ACHS Qty: 0 0RF Protocol: 3. Sliding Scale Insulin Med Dosing Condition: 150-189 mg/dl = 1 unit Condition: 190-229 mg/dl = 2 units Condition: 230-269 mg/dl = 3 units Condition: 270-309 mg/dl = 4 units Condition: 310-349 mg/dl = 5 units Condition: 350-399 mg/dl = 6 units Condition: 400-449 mg/dl = 7 units Condition: Greater than 449 call physician Protocol Text: Suggested for: - Patients on Total Daily Insulin Dose of 37-55 units - Obese, infected, or steroid patients MEDIUM DOSING ALGORITHIM oxycodone 10 mg Tablet,Oral Only,Ext.Rel.12 Hr 20 mg PO BID 2 Days Qty: 8 0RF Continued levetiracetam 500 mg tablet 500 mg PO BID amitriptyline 25 mg tablet 25 mg PO DAILY tamsulosin 0.4 mg capsule 0.4 mg PO DAILY allopurinol 300 mg tablet 300 mg PO DAILY sennosides-docusate sodium [Stimulant Laxative Plus] 8.6-50 mg Tablet 2 tab PO BID Qty: 0 0RF hydroxyzine pamoate 25 mg capsule 25 mg PO QHS PRN (Reason: insomnia) Qty: 30 0RF oxymetazoline [12 Hour Nasal Relief [place]] 0.05 % spray,non-aerosol 2 spray intranasal BID PRN (Reason: Nasal congestion) 30 Days Qty: 0 0RF rosuvastatin 10 mg tablet 10 mg PO DAILY 30 Days Qty: 30 2RF metoprolol tartrate 25 mg Tablet 25 mg PO BID Qty: 60 0RF Discontinued Januvia 100 mg tablet 100 mg PO DAILY insulin lispro [Humalog [place] KwikPen U-100] 100 unit/mL insulin pen, half- unit See Protocol subcut TIDCM Qty: 15 3RF Protocol: 3. Sliding Scale Insulin Med Dosing Condition: 150-189 mg/dl = 1 unit Condition: 190-229 mg/dl = 2 units Condition: 230-269 mg/dl = 3 units Condition: 270-309 mg/dl = 4 units Condition: 310-349 mg/dl = 5 units Condition: 350-399 mg/dl = 6 units Condition: 400-449 mg/dl = 7 units Condition: Greater than 449 call physician Protocol Text: Suggested for: - Patients on Total Daily Insulin Dose of 37-55 units - Obese, infected, or steroid patients MEDIUM DOSING ALGORITHIM Rx Instructions: Call PCP if Glucose <70 or > 400 Xtampza ER 18 mg cap,sprinkl,ER12hr(DONT CRUSH) 18 mg PO BID 3 Days Qty: 6 0RF Rx Instructions: must administer with a meal/food No Action insulin glargine [Lantus Solostar U-100 Insulin] 100 unit/mL (3 mL) insulin pen subcut Patient Comments: unknown dosage Referrals / Follow Up: Saulo Miranda MD [Primary Care Provider] - Disposition Disposition (needs filled in before D/C Order can be placed): [facility] Charges/Coding Visit Charges Inpatient E&M: 21468 Disch Hosp >30min
[2024-11-28 15:48] LABS: Bedside Glucose 139 mg/dL (74-106)
--- NOTE | 2024-11-28 16:04 | CASEMGMT ---
Social Work Precert has been obtained for [facility]. Physician notified and pt is ready for discharge today. SW met with pt and discussed discharge plan and pt is agreeable to go to SNF at this time. Pt's informed SW that she did notify pt that she was returning home today and was not going [facility] with him. Phone call to pt with no answer. Phone call to pt son Jim and informed that pt is to be dc today and he is agreeable with dc plan and will notify pt's . DC academic assistant notified and to complete discharge. Phone call to [facility]PS and updated on status of pt and pt's . Disposition: [facility], skilled level of care IZZY Peoples
--- NOTE | 2024-11-28 16:04 | CASEMGMT ---
Social Work Precert has been obtained for pt to [facility] to [facility]. Physician notified and pt is ready for discharge today. SW met with pt and discussed discharge plan and pt is agreeable to go to SNF at this time. Pt's informed SW that she did notify pt that she was returning home today and was not going to [facility] with him. Phone call to pt with no answer. Phone call to pt son Jim and informed that pt is to be dc today and he is agreeable with dc plan and will notify pt's . DC assistant librarian notified and to complete discharge. Phone call to [facility] and updated on status of pt and pt's . Disposition: [facility], skilled level of care IZZY Peoples
--- NOTE | 2024-11-28 16:11 | CASEMGMT ---
Discharge Planning Discharge orders, signed med, list, passr rule out, and transport time sent to [facility] [place]. Physicians will transport pt by wheelchair at 6:30p. Nursing & SW updated. Inge El DC Planning Asst
--- NOTE | 2024-11-28 16:11 | CASEMGMT ---
Discharge Planning Discharge orders, signed med, list, passr rule out, and transport time sent to [facility] [place]. Physicians will transport pt by wheelchair at 6:30p. Nursing & SW updated. Inge El DC Planning Asst
[2024-11-28] MEDS: Insulin Lispro 100 UNIT/ML INSULN.PEN SC (17:07)
[2024-11-28 17:10] LABS: Bedside Glucose 171 mg/dL (74-106)
== END 2024-11-28 18:58 | disposition skilled nursing facility (03) ==
LOC: ED 21:11 → MS3 21:25
PROVIDERS: Admitting Provider Internal Medicine; Emergency Provider Emergency Medicine; PCP Family Medicine; Referring Provider Emergency Medicine; Visit Provider Internal Medicine
DX: S20.229A Contusion of unspecified back wall of thorax, initial encounter (principal); G40.909 Epilepsy, unspecified, not intractable, without status epilepticus; Z79.4 Long term (current) use of insulin; E11.9 Type 2 diabetes mellitus without complications; R53.81 Other malaise; Z79.899 Other long term (current) drug therapy; E78.5 Hyperlipidemia, unspecified; M48.061 Spinal stenosis, lumbar region without neurogenic claudication; W19.XXXA Unspecified fall, initial encounter; R93.89 Abnormal findings on diagnostic imaging of other specified body structures; I10 Essential (primary) hypertension; Z79.84 Long term (current) use of oral hypoglycemic drugs; S39.012A Strain of muscle, fascia and tendon of lower back, initial encounter; M54.16 Radiculopathy, lumbar region; M10.9 Gout, unspecified; F17.220 Nicotine dependence, chewing tobacco, uncomplicated; Y92.009 Unspecified place in unspecified non-institutional (private) residence as the place of occurrence of the external cause; N40.1 Benign prostatic hyperplasia with lower urinary tract symptoms; N13.8 Other obstructive and reflux uropathy; F32.A Depression, unspecified; I44.0 Atrioventricular block, first degree
CPT/HCPCS: 36415; 71046; 74176; 80048; 81001; 82962; 83036; 83735; 84100; 84443; 85025; 94668; 96372; 96374; 96375; 96376; 97110; 97116; 97162; 97166; 97535; 99221; 99285; A4216; G0378; J2405

== ENCOUNTER 2025-01-31 03:26 | Emergency (ER) | payer MEDICARE, SELFPAY ==
[2025-01-31 03:27] VITALS: BP 152/97; PULSE 86; RESP 18; TEMP 36.5; O2SAT 98; BMI 26.6
[2025-01-31 04:00] LABS: Hematocrit 40.0 % (40-54); Hemoglobin 13.2 g/dL (13.0-16.5); Immature Granulocytes Count 0.020 X10^3/uL (0.0-0.0); Mean Corp Hgb Conc 33.0 g/dL (32-36); Mean Corpuscular Volume 90.5 fL (80-94); Mean Platelet Vol. 10.1 fl (6.2-12.0); NRBC Flagged by Analyzer 0 % (0-5); Platelet Count 222 K/mm3 (150-450); RBC Distribution Width CV 14.6 % (11.6-14.6); RBC Distribution Width SD 47.9 fl (35.1-43.9); Red Blood Count 4.42 M/mm3 (4.6-6.2); White Blood Count 8.6 K/mm3 (4.4-11.0)
[2025-01-31 04:27] VITALS: PULSE 85
--- OUTSIDE RECORDS SUMMARY | 2025-01-31 04:27 | XMS RPT_ITS | CCD ---
Author Organization [facility] Care Team Providers Care Designer Writer Name Role Phone Juni Aguilar MD Primary Care Provider Fredis Villeda MD Primary Care Provider Fredis Villeda MD Unavailable Misael Crabtree PA-C Unavailable Gilma CEJA, Satish Unavailable Fredis Villeda MD Unavailable Keyla Schultz MD Primary Care Provider Misael Crabtree PA-C Unavailable Gilma CEJA, Satish Unavailable Fredis Villeda MD Unavailable Keyla Schultz MD Primary Care Provider Bro CHRISTY, Misael Unavailable Fredis Villeda MD Unavailable Keyla Schultz MD Primary Care Provider Misael Crabtree PA-C Unavailable Danielle MAGANA, Kadi Unavailable Unavailable Fredis Villeda MD Unavailable Keyla Schultz MD Primary Care Provider Terri COOLEY.Cesar SHEEHAN Unavailable CESAR MURRAY Referring Unavailable KEYLA SCHULTZ Primary Care Unavailable KEYLA SCHULTZ Referring Unavailable KEYLA SCHULTZ Primary Care Unavailable Saulo Schultz MD Primary Care Provider Dr. Aamir Auguste DO Emergency Provider Elijah MICHEL, Dr. Menendez Attending Provider Ruth MICHEL, Dr. Vernon Primary Care Provider Elijah MICHEL, Dr. Menendez Admit Provider Elijah MICHEL, Dr. Menendez Other Provider Maximus MICHEL, Dr. Bhatia Attending Provider Maximus MICHEL, Dr. Bhatia Other Provider Martin MICHEL, Dr. Lizama Emergency Provider Omar MICHEL, Dr. Mindi Giron Admit Provider Omar MICHEL, Dr. Mindi Giron Attending Provider Omar MICHEL, Dr. Mindi Giron Other Provider Joss ESCUDERO, Dr. Leigh Attending Provider Omar MICHEL, Dr. Mindi Giron Attending Provider Reuben IMCHEL, Dr. Schmid Attending Provider [phone] Reuben MICHEL, Dr. Schmid Referring Provider Joss ESCUDERO, Dr. Leigh Other Provider Martin MICHEL, Dr. Lizama Referring Provider Gómez DO, Dr. Colon Admit Provider Unavail able Gómez DO, Dr. Colon Attending Provider Unav ailable Gómez DO, Dr. Colon Other Provider Unavail able Stan ESCUDERO, Dr. Castellano Attending Provider Stan ESCUDERO, Dr. Castellano Other Provider CESAR MURRAY Attending Unavailable SELF Referring Unavailable KEYLA SCHULTZ Primary Care Unavailable Isaiah Gómez Consulting Unavailable Isaiah Gómez Admitting Unavailable Gray Pierce Attending Unavailable Saulo Schultz Primary Care Unavailable Dl Salazar Referring Unavailable Gray Pierce Consulting Unavailable Gemma Nava Consulting Unavailable Gemma Nava Admitting Unavailable Sriram Stroud Attending Unavailable Saulo Schultz Primary Care Unavailable Sriram Stroud Consulting Unavailable Omar, Mindi Bree Consulting Unavailable Omar, Mindi Bree Admitting Unavailable Lu Coreas Attending Unavailable [facility] Unavailable Lu Coreas Consulting Unavailable [facility] Unavailable Binu Alexis Attending Unavailable Binu Alexis Referring Unavailable Isaiah Gómez Admitting Unavailable Isaiah Gómez Consulting Unavailable Gray Pierce Attending [facility] Unavailable Dl Salazar Referring Unavailable Koram, Mindi Bree Admitting Unavailable Koram, Mindi Bree Consulting Unavailable Lu Coreas Attending Un[facility] Gemma Nava Admitting Unavailable Gemma Nava Consulting [facility] Sriram Stroud Attending Unavailable Isaiah Gómez Attending Unavailable Mindi Nelson Attending Unavailable Gemma Nava Attending Unavailable Ruth GODINEZ [facility] Unavailable Allergies Allergy Classification Reported Allergen(s) Allergy Type Date of Onset Reaction(s) Facility NSAIDs (2 sources) Ketorolac Drug Allergy 07-19-19 17 [facility] Opioid Agonists (2 sources) HYDROmorphone Drug Allergy 12-08-19 17 [facility] Penicillins (antibiotic) (2 sources) Penicillins Drug Allergy 07-19-19 17 [facility] (20 sources) HYDROmorphone; Translations: [HYDROMORPHONE (BULK)] Drug Allergy 03-08-20 17 Mental Status Change [facility] (20 sources) Ketorolac; Translations: [KETOROLAC] Drug Allergy 01-15-20 17 Itching [facility] (20 sources) Penicillin; Translations: [PENICILLIN] Drug Allergy 01-15-20 17 Unknown [facility] (7 sources) HYDROmorphone Drug Allergy 02-17-20 21 Hallucinations [facility] (8 sources) Penicillins; Translations: [Penicillins] Allergy to substance 02-17-20 21 Hives [facility] (1 source) HYDROmorphone Drug Allergy 11-27-19 [facility] Repository (1 source) Ketorolac Drug Allergy 11-27-19 [facility] Rep[facility] Medications Current Medications Medication Drug Class(es) Dates Sig (Normalized) Sig (Original) acetaminophen 325 mg oral tablet (1 source) Start: 11-28-2024 take 1-0.5 tablets by mouth every six hours as needed for pain Acetaminophen 325 mg Tablet Active 650 mg PO EVERY 6 HOURS NEEDED as needed for Pain 1-5/10 Or Fever>100.7 0 November 28, 2024 12:00am allopurinol 300 mg oral tablet (20 sources) Xanthine Oxidase Inhibitor Start: 09-28-2023 End: 11-01-2024 take 1 tablet by mouth once daily allopurinol (ZYLOPRIM) 300 mg tablet TAKE 1 TABLET BY MOUTH ONCE DAILY 100 tablet 2 09/13/2024 Active Start: 03-25-2023 End: 06-23-2023 take 1 tablet by mouth once daily allopurinol (ZYLOPRIM) 300 mg tablet TAKE 1 TABLET BY MOUTH ONCE DAILY 100 tablet 1 03/25/2023 06/23/2023 Active Start: 08-13-2022 End: 11-11-2022 take 1 tablet by mouth once daily allopurinol (ZYLOPRIM) 300 mg tablet Take 1 tablet by mouth once daily. 90 tablet 3 08/13/2022 11/11/2022 Active Comment on above: Take 300 mg by mouth once daily. Take 1 tablet by phani th once daily. TAKE 1 TABLET BY PHANI TH ONCE DAILY Alum-Mag Hydroxide-Simeth (Mag-Al Plus Extra Strength) 400-400-40 mg/5 mL Suspension (1 source) Start: 11-29-19 25 take 1 mL by mouth every six hours as needed Alum-Mag Hydroxide-Simeth (Mag-Al Plus Extra Strength) 400-400-40 mg/5 mL Suspension Active 30 mL PO EVERY 6 HOURS NEEDED as needed for Gastric Burning 0 November 28, 2024 12:00am amitriptyline hydrochloride 25 mg oral tablet (20 sources) Tricyclic Antidepressant Start: 03-14-20 24 take 1 tablet by mouth once daily at bedtime amitriptyline (ELAVIL) 25 mg tablet Indications: Chronic bilateral low back pain with bilateral sciatica Take 25 mg by mouth daily at bedtime. 03/14/2024 Active atenolol 50 mg oral tablet (20 sources) beta-Adrenergic Abundio Start: 05-23-20 23 take 0.5 tablet by mouth once daily atenolol (TENORMIN) 50 mg tablet TAKE ONE-HALF TABLET BY MOUTH ONCE DAILY 100 tablet 2 05/23/2023 Active Start: 08-13-2022 End: 11-11-2022 take 0.5 tablet by mouth once daily atenolol (TENORMIN) 50 mg tablet Take 0.5 tablets by mouth once daily. 45 tablet 3 08/13/2022 Active Start: 10-29-2021 End: 08-13-2022 atenolol (TENORMIN) 50 mg ta blet [The details of the medication are not available because there are pending changes by a home health clinician.] 0 10/29/2021 08/13/2022 Discontinued Start: 10-29-2021 take 0.5 tablet by m outh once daily atenolol (TENORMIN) 50 mg tablet Take 0.5 tablets by mouth once daily. 0 10/29/2021 Active Comment on above: Take 50 mg by mouth once daily. Take 0.5 tablets by mouth once daily. [The details of the medication are not available because there are pending changes by a home health clinician.] TAKE ONE-HALF TABLET BY MOUTH ONCE DAILY azelastine hydrochloride 0.137 mg/actuat metered dose nasal spray (20 sources) Histamine-1 Receptor Antagonist Start: 3 take 1 spray(s) nasal route twice daily azelastine 0.1% nasal spray Use 1 [place] in each nostril two times a day. 30 mL 06/29/2023 Active Comment on above: Use 1 [place] in each nostril two times a day. Blood-Glucose Meter (20 sources) Start: 2 Blood-Glucose Meter 1 Device three times daily. Test Three times a day. 1 Each 10/29/2021 4:55 PM EDT 10/28/2021 Active Start: 10-28-2021 Blood-Glucose Meter 1 Device three times daily. Test Three times a day. 1 Each 10/28/2021 Active Start: 10-28-2021 Blood-Glucose Meter 1 Device three times daily. Test Three times a day. 1 Each 0 10/28/2021 Active Comment on above: 1 Device three times daily. Test Three times a day. docusate sodium 50 mg / sennosides, nursing home 8.6 mg oral tablet (4 sources) Start: 5 Sennosides-Docusate Sodium (Stimulant Laxative Plus) 8.6-50 mg Tablet Active 2 {tbl} PO TWICE A DAY 0 October 17, 2024 12:00am escitalopram 5 mg oral tablet (20 sources) Serotonin Reuptake Inhibitor Start: 4 End: 4 take 1 tablet by mouth once daily escitalopram oxalate (LEXAPRO) 5 mg tablet Indications: Adjustment disorder with depressed mood Take 1 tablet by mouth once daily. 30 tablet 2 06/05/2024 Active flash glucose sensor (FREESTYLE NICCI 2 SENSOR) kit (20 sources) Start: 2 End: 2 flash glucose sensor (FREESTYLE NICCI 2 SENSOR) kit 2 Each once every month. To monitor blood sugar continuously. E11.65. patient on insulin therapy 6 Each 1 11/24/2021 02/22/2022 Active Comment on above: 2 Each once every mo nth. To monitor blood sugar continuously. E11.65. patient on insulin therapy gabapentin 100 mg oral capsule (20 sources) Anti-epileptic Agent Start: 4 End: 4 take 1 capsule by mouth twice daily gabapentin (NEURONTIN) 100 mg capsule Take 1 capsule by mouth two times a day for 30 days. 60 capsule 2 10/04/2023 Active Start: 07-26-2022 End: 01-22-2023 take 1 capsule by mouth twice daily gabapentin (NEURONTIN) 100 mg capsule Take 1 capsule by mouth twice daily for 90 days. 180 capsule 3 08/13/2022 Active Start: 06-11-2022 End: 07-26-2022 take 1 capsule by mouth once daily at bedtime gabapentin (NEURONTIN) 100 mg capsule take 1 capsule by mouth daily at bedtime 30 capsule 0 06/11/2022 07/26/2022 Discontinued Start: 12-08-2021 End: 04-03-2022 take 1 capsule by mouth once daily at bedtime gabapentin (NEURONTIN) 100 mg capsule take 1 capsule by mouth daily at bedtime 30 capsule 2 03/04/2022 04/03/2022 Active Comment on above: Take 1 capsule by mo ut daily at bedtime for 90 days. take 1 capsule by mo ut daily at bedtime Take 1 capsule by mo uth twice daily for 180 days. Take 1 capsule by mo uth twice daily for 90 days. Take 1 capsule by mo uth two times a day for 30 days. hydrOXYzine pamoate 25 mg oral capsule (16 sources) Antihistamine Start: take 1 capsule by mouth at bedtime as needed Hydroxyzine Pamoate 25 mg capsule Active 25 mg PO AT BEDTIME as needed for insomnia October 17, 2024 3:37pm Start: 03-11-2022 End: 07-26-2022 take 1 capsule by mouth every twenty-four hours as needed hydrOXYzine pamoate (VISTARIL) 25 mg capsule Take 1 capsule by mouth at bedtime as needed (insomnia). 60 capsule 2 03/11/2022 07/26/2022 Discontinued Start: 01-04-2022 End: 10-17-2024 Hydroxyzine Pamoate 25 mg ca psule Discontinued 50 mg PO AT BEDTIME as needed for insomnia January 04, 2022 1:36pm October 17, 2024 3:37pm Start: 01-04-2022 take 50 mg by mouth at bedtime Hydroxyzine Pamoate Active 50 MG PO AT BEDTIME January 04, 2022 1:36pm Comment on above: Take 1 capsule by mo ut at bedtime as needed (insomnia). 3 ml insulin glargine 100 unt/ml pen injector (20 sources) Insulin Analog Start: 10-15-2024 Insulin Glargine (Lantus Solostar U-100 Insulin) 100 unit/mL (3 mL) insulin pen Active U SC October 15, 2024 12:00am Start: 03-22-2024 insulin glargi ne (LANTUS SOLOSTAR U-100 INSULIN) 100 unit/mL (3 mL) Indications: Type 2 diabetes mellitus without complication, with long-term current use of insulin (HCC) INJECT 21 UNITS SUBCUTANEOUSLY EVERY MORNING 30 mL 5 03/22/2024 Active Start: 03-15-2024 End: 03-22-2024 insulin glargine (LANTUS PAM OSTAR U-100 INSULIN) 100 unit/mL (3 mL) Indications: Type 2 diabetes mellitus without complication, with long-term current use of insulin (HCC) Inject 18 Units subcutaneously every morning. 30 mL 5 03/15/2024 03/22/2024 Discontinued Start: 06-15-2023 End: 03-15-2024 inject 10 [IU] by subcutaneous injection once daily in the morning insulin glargine (LANTUS SOLOSTAR U-100 INSULIN) 100 unit/mL (3 mL) Inject 10 Units subcutaneously every morning. 30 mL 5 06/15/2023 03/15/2024 Discontinued (Adjust Sig - Block E-Cancel) Start: 06-13-2023 End: 06-15-2023 insulin glargine (LANTUS PAM OSTAR U-100 INSULIN) 100 unit/mL (3 mL) Inject 18 Units subcutaneously every morning. 30 mL 2 06/13/2023 06/15/2023 Discontinued Start: 06-13-2023 insulin glargi ne (LANTUS SOLOSTAR U-100 INSULIN) 100 unit/mL (3 mL) Inject 18 Units subcutaneously every morning. 30 mL 2 06/13/2023 Active Start: 03-24-2023 End: 03-24-2023 LANTUS SOLOSTAR U-100 INSULI N 100 unit/mL (3 mL) INJECT SUBCUTANEOUSLY 21 UNITS IN THE MORNING 30 mL 2 03/24/2023 03/24/2023 Discontinued Start: 08-13-2022 End: 06-13-2023 insulin glargine (LANTUS PAM OSTAR U-100 INSULIN) 100 unit/mL (3 mL) Inject 21 Units subcutaneously every morning. 30 mL 2 03/24/2023 06/13/2023 Discontinued Start: 10-28-2021 End: 08-13-2022 insulin glargine (LANTUS PAM OSTAR U-100 INSULIN) 100 unit/mL (3 mL) Inject 21 Units subcutaneously every morning. 5 Pen 3 12/22/2021 08/13/2022 Discontinued Comment on above: Inject 21 Units subc utaneously every morning. INJECT SUBCUTANEOUSL Y 21 UNITS IN THE MORNING Inject 18 Units subc utaneously every morning. Inject 10 Units subc utaneously every morning. 3 ml insulin lispro 100 unt/ml pen injector (20 sources) Insulin Analog Start: 11-28-2024 Insulin Lispro (Humalog Kwikpen Insulin) 100 unit/mL Insulin Pen Active 0 U SC BEFORE MEALS AND AT BEDTIME 0 November 28, 2024 12:00am Please contact the information source for Protocol details. Start: 10-18-2024 End: 11-28-2024 Insulin Lispro (Humalog Frank or Kwikpen U-100) 100 unit/mL insulin pen, half-unit Discontinued 0 U SC 3 TIMES DAILY WITH MEALS October 18, 2024 12:00am November 28, 2024 3:37pm Call PCP if Glucose 400 Please contact the information source for Protocol details. Start: 10-28-2021 End: 12-01-2021 inject 6 [IU] by subcutaneous injection once daily at dinner insulin lispro (HUMALOG KWIKPEN) 100 unit/mL Inject 6 Units subcutaneously daily with dinner. 15 mL 0 10/28/2021 12/01/2021 Discontinued Comment on above: Inject 6 Units subcu taneously daily with dinner. isopropyl alcohol 0.7 ml/ml medicated pad (20 sources) Start: 10-29-19 alcohol swabs Use with blood glucose test 3 times daily. 300 Each 5 10/29/2021 4:55 PM EDT 10/28/2021 Active Comment on above: Use with blood gluco se test 3 times daily. levETIRAcetam 500 mg oral tablet (20 sources) Start: 07-26-19 End: 04-08-20 take 1 tablet by mouth twice daily levETIRAcetam (KEPPRA) 500 mg tablet TAKE 1 TABLET BY MOUTH TWICE DAILY 200 tablet 2 01/09/2024 Active Start: 03-24-2022 End: 11-11-2022 take 1 tablet by mouth twice daily levETIRAcetam (KEPPRA) 500 mg tablet Take 1 tablet by mouth twice daily. 180 tablet 3 08/13/2022 Active Comment on above: Take 500 mg by mouth twice daily. Take 1 tablet by phani twice daily. TAKE 1 TABLET BY PHANI TH TWICE DAILY Magnesium Hydroxide (1 source) Start: 11-29-19 take 1 mL by mouth once daily as needed for constipation Magnesium Hydroxide 400 mg/5 mL Suspension Active 30 mL PO DAILY NEEDED as needed for Constipation 0 November 28, 2024 12:00am metFORMIN hydrochloride 500 mg oral tablet (2 sources) Biguanide take 500 mg by mouth twice daily METFORMIN HCL PO Take 500 mg by mouth 2 times daily 0 Active metoprolol tartrate 25 mg oral tablet (2 sources) beta-Adrenergic Abundio Start: 11-10-19 take 1 tablet by mouth twice daily Metoprolol Tartrate 25 mg Tablet Active 25 mg PO TWICE A DAY November 095 12:00am abuse-deterrent 12 hr oxyCODONE hydrochloride 10 mg extended release oral tablet (20 sources) Opioid Agonist Start: 11-29-19 take 10 mg by mouth twice daily Oxycodone 10 mg Tablet,Oral Only,Ext.Rel.12 Hr Active 20 mg PO TWICE A DAY 8 2 November 28, 2024 Start: 10-15-2024 End: 11-28-2024 take 1 capsule by mouth twice daily at mealtime Oxycodone Myristate (Xtampza Er) 18 mg cap,sprinkl,ER12hr(DONT CRUSH) Discontinued 18 mg PO TWICE A DAY 6 November 09, 2024 November 28, 2024 3:38pm must administer with a meal/food Start: 11-10-2021 End: 11-24-2021 take 9 mg by mouth twice daily oxyCODONE myristate (XTAMPZA ER) 9 mg CSpT Take 9 mg by mouth twice daily. 11/10/2021 Active Comment on above: Take 9 mg by mouth t wice daily. oxymetazoline hydrochloride 0.5 mg/ml nasal spray (9 sources) Start: End: Oxymetazoline (12 Hour Nasal Relief [place]) 0.05 % spray,non-aerosol Active 2 NMA INTRANASAL TWICE A DAY as needed for Nasal congestion 0 October 17, 2024 3:37pm rosuvastatin calcium 10 mg oral tablet (20 sources) HMG-CoA Reductase Inhibitor Start: 3 End: 5 take 1 tablet by mouth once daily rosuvastatin (CRESTOR) 10 mg tablet TAKE 1 TABLET BY MOUTH ONCE DAILY 100 tablet 2 01/15/2025 Active Start: 06-01-2022 End: 11-11-2022 take 1 tablet by mouth once daily rosuvastatin (CRESTOR) 10 mg tablet Take 1 tablet by mouth once daily. 90 tablet 3 08/13/2022 Active take 1 tablet by phani th once daily rosuvastatin (CRESTOR) 10 mg tablet Take 10 mg by mouth once daily. 0 Active take 10 mg by mouth once daily R osuvastatin Calcium (CRESTOR PO) Take 10 mg by mouth daily 0 Active Comment on above: Take 10 mg by mouth once daily. Take 1 tablet by phani th once daily. take 1 tablet by phani th once daily SITagliptin 100 mg oral tablet (20 sources) Dipeptidyl Peptidase 4 Inhibitor Start: End: take 1 tablet by mouth once daily SITagliptin phosphate (JANUVIA) 100 mg tablet Indications: Type 2 diabetes mellitus without complication, with long-term current use of insulin (HCC) Take 1 tablet by mouth once daily. 90 tablet 2 05/18/2024 Active Start: 06-06-2023 take 1 tablet by phani th once daily JANUVIA 100 mg tablet Indications: Type 2 diabetes mellitus without complication, with long-term current use of insulin (HCC) take 1 tablet by mouth once daily 90 tablet 0 06/06/2023 Active Start: 04-26-2022 End: 05-17-2023 take 1 tablet by mouth once daily SITagliptin phosphate (JANUVIA) 100 mg tablet Indications: Type 2 diabetes mellitus without complication, with long-term current use of insulin ([facility]) Take 1 tablet by mouth once daily. 90 tablet 0 02/16/2023 05/17/2023 Active Start: 12-01-2021 take 1 tablet by phani th once daily SITagliptin (JANUVIA) 100 mg tablet Take 1 tablet by mouth once daily. 90 tablet 1 12/01/2021 Active Comment on above: Take 1 tablet by phani th once daily. take 1 tablet by phani th once daily tamsulosin hydrochloride 0.4 mg oral capsule (20 sources) alpha-Adrenergic Abundio Start: 11-07-2023 End: 11-06-2024 take 1 capsule by mouth once daily tamsulosin (FLOMAX) 0.4 mg TAKE 1 CAPSULE BY MOUTH ONCE DAILY 100 capsule 2 06/26/2024 Active Start: 10-04-2023 take 1 capsule by mo ut once daily tamsulosin (FLOMAX) 0.4 mg TAKE 1 CAPSULE BY MOUTH ONCE DAILY 60 capsule 0 10/04/2023 Active Start: 12-09-2020 End: 11-11-2022 take 1 capsule by mouth once daily tamsulosin (FLOMAX) 0.4 mg Take 1 capsule by mouth once daily. not taking 90 capsule 3 08/13/2022 Active Comment on above: Take 0.4 mg by mouth once daily. [The details of the medication are not available because there are pending changes by a home health clinician.] Take 0.4 mg by mouth once daily. not taking Take 1 capsule by mo uth once daily. not taking TAKE 1 CAPSULE BY MO UTH ONCE DAILY vitamin B12 (2 sources) Vitamin B12 Cyanocobalamin ( VITAMIN B-12 CR PO) Take by mouth 0 Active Completed/Discontinued Medications Medication Drug Class(es) Dates Sig (Normalized) Sig (Original) acetaminophen 325 mg / HYDROcodone bitartrate 5 mg oral tablet (12 sources) Opioid Agonist Start: 11-09-2021 End: 11-12-2021 take 1 tablet by mouth every eight hours as needed for pain HYDROcodone-acetam inophen (NORCO) 5-325 mg per tablet Indications: Acute low back pain, unspecified back pain laterality, unspecified whether sciatica present Take 1 tablet by mouth every 8 hours as needed for pain for up to 3 days. 9 tablet 0 11/09/2021 11/12/2021 Start: 02-16-2021 End: 10-15-2024 Hydrocodone-Acetaminophen 5- 325 mg tablet Discontinued 1 {tbl} PO .qid February 16, 2021 12:00am October 15, 2024 1:17pm Start: 02-16-2021 take 1 tablet by phani th four times daily Hydrocodone-Acetaminophen Active 1 TABLE T PO .qid February 16, 2021 2:55pm Start: 01-14-2017 End: 10-28-2021 take 1 tablet by mouth every six hours as needed HYDROcodone-acetaminophen (NORCO) 5-325 mg per tablet Take 1 tablet by mouth every 6 hours as needed. 11 tablet 0 01/14/2017 10/28/2021 Discontinued Comment on above: Take 1 tablet by phani th every 6 hours as needed. Take 1 tablet by phani th every 8 hours as needed for pain for up to 3 days. acetaminophen 325 mg / oxyCODONE hydrochloride 10 mg oral tablet (13 sources) Opioid Agonist Start: 0 oxyCODONE-acetaminoph en (PERCOCET) 10-325 mg tablet 1 tablet as needed 0 07/27/2019 Active Comment on above: 1 tablet as needed carisoprodol 350 mg oral tablet (20 sources) Muscle Relaxant Start: 2 End: 3 take 1 tablet by mouth once daily at bedtime carisoprodol (SOMA) 350 mg tablet Take 350 mg by mouth daily at bedtime. 0 11/02/2021 07/26/2022 Discontinued Comment on above: Take 350 mg by mouth daily at bedtime. 72 hr fentaNYL 0.05 mg/hr transdermal system (7 sources) Opioid Agonist Start: End: Fentanyl 50 mcg/hr patch 72 hour Discontinued 1 NMA TD February 16, 2021 12:00am October 15, 2024 1:17pm Start: 02-16-2021 Fentanyl Activ e 1 PATCH TD February 16, 2021 2:56pm flash glucose scanning reade r (FREESTYLE NICCI 2 READER) (20 sources) Start: 11-24-2021 End: 03-15-2024 flash glucose scanning reade r (FREESTYLE NICCI 2 READER) 1 Each every year. To monitor blood sugar continuously. E11.65. patient on insulin therapy 1 Each 11/24/2021 03/15/2024 Discontinued (Cost of medication) Start: 11-24-2021 flash glucose scanning reader (FREESTYLE NICCI 2 READER) 1 Each every year. To monitor blood sugar continuously. E11.65. patient on insulin therapy 1 Each 0 11/24/2021 Active Comment on above: 1 Each every year. T o monitor blood sugar continuously. E11.65. patient on insulin therapy glucose 4000 mg chewable tablet (20 sources) Start: 022 End: 022 glucose 4 gram chewable tablet Take 4 tablets by mouth as needed for low blood sugar. 10 tablet 5 10/28/2021 03/24/2022 Discontinued Comment on above: Take 4 tablets by mo [facility] as needed for low blood sugar. mirtazapine 15 mg oral tablet (12 sources) Start: 023 End: 023 take 1 tablet by mouth once daily at bedtime mirtazapine (REMERON) 15 mg tablet Take 1 tablet by mouth daily at bedtime. 90 tablet 3 08/13/2022 06/15/2023 Discontinued Comment on above: Take 1 tablet by phani daily at bedtime. phenazopyridine hydrochloride 100 mg oral tablet (1 source) Start: 07 End: take 1 tablet by mouth every eight hours as needed phenazopyridine (PYRIDIUM, GERIDIUM) 100 mg tablet Take 1 tablet by mouth three times daily as needed (Urinary Symptoms). 6 tablet 0 01/29/2021 10/28/2021 Discontinued Comment on above: Take 1 tablet by phani th three times daily as needed (Urinary Symptoms). rivaroxaban 20 mg oral tablet (5 sources) Factor Xa Inhibitor Start: End: take 1 tablet by mouth once daily at dinner Rivaroxaban (Xarelto) 20 mg tablet Discontinued 20 mg PO DAILY October 15, 2024 12:00am November 09, 2024 11:58am must administer with evening meal traMADol hydrochloride 50 mg oral tablet (7 sources) Opioid Agonist Start: End: take 1 tablet by mouth three times daily as needed for pain Tramadol 50 mg tablet Discontinued 50 mg PO THREE TIMES A DAY as needed for pain January 04, 2022 12:00am October 15, 2024 1:17pm End: 10-28-2021 traMADol (ULTRAM) 50 mg tabl et 1 tablet as needed 0 10/28/2021 Discontinued Comment on above: 1 tablet as needed Problems Active Problems Problem Classification Problem Date Documented Date Episodic/Chronic Adjustment disorders (2 sources) Adjustment disorder with depressed mood; Translations: [Adjustment disorder with depressed mood] 03-15-2024 Chronic Cancer of prostate (20 sources) Malignant tumor of prostate; Translations: [Malignant neoplasm of prostate] Onset: 10-26-2021 10-28-2021 Chronic Cancer of prostate (2 sources) History of malignant neoplasm of prostate; Translations: [Personal history of malignant neoplasm of prostate] Onset: 09-26-2024 03-15-2024 Episodic Diabetes mellitus without complication (20 sources) Type 2 diabetes mellitus without complication; Translations: [Type 2 diabetes mellitus without complications] Onset: 12-08-2021 Chronic Disorders of lipid metabolism (20 sources) Hyperlipidemia; Translations: [Hyperlipidemia, unspecified] Onset: 10-26-2021 10-28-2021 Chronic E Codes: Fall (10 sources) Fall on same level from slipping, tripping or stumbling ; Translations: [Fall on same level from slipping, tripping and stumbling without subsequent striking against object, initial encounter] Onset: 11-09-2024 10-30-2024 Episodic Epilepsy; convulsions (20 sources) Epilepsy; Translations: [Epilepsy, unspecified, not intractable, without status epilepticus] Onset: 10-26-2021 10-28-2021 Chronic Essential hypertension (20 sources) Hypertensive disorder; Translations: [Essential (primary) hypertension] Onset: 10-26-2021 10-28-2021 Chronic Gout and other crystal arthropathies (20 sources) Gout; Translations: [Gout, unspecified] Onset: 10-26-2021 10-28-2021 Chronic Malaise and fatigue (13 sources) Asthenia; Translations: [Weakness] Onset: 11-26-2024 09-01-2023 Episodic Other connective tissue disease (1 source) Recurrent falls ; Translations: [Repeated falls] 06-15-2023 Episodic Other connective tissue disease (3 sources) Pain in both feet; Translations: [Pain in right foot] 09-25-2024 Episodic Other connective tissue disease (1 source) Pain in right foot; Translations: [Foot pain, bilateral] Onset: 09-26-2024 Episodic Other connective tissue disease (1 source) Pain in left foot; Translations: [Foot pain, bilateral] Onset: 09-26-2024 Episodic Other eye disorders (7 sources) Ptosis of eyelid; Translations: [Unspecified ptosis of unspecified eyelid] 02-16-2021 Episodic Other injuries and conditions due to external causes (2 sources) Injury of left foot; Translations: [Unspecified injury of left foot, initial encounter] 09-25-2024 Episodic Other injuries and conditions due to external causes (2 sources) Injury of right foot; Translations: [Unspecified injury of right foot, initial encounter] 09-25-2024 Episodic Other injuries and conditions due to external causes (1 source) Unspecified injury of left foot, initial encounter; Translations: [Injury of left foot, initial encounter] Onset: 09-26-2024 Episodic Other injuries and conditions due to external causes (1 source) Unspecified injury of right foot, initial encounter; Translations: [Injury of right foot, initial encounter] Onset: 09-26-2024 Episodic Other nervous system disorders (6 sources) Chronic pain; Translations: [Other chronic pain] 01-12-2022 Chronic Other nervous system disorders (1 source) Other chronic pain; Translations: [Other chronic pain] Onset: 11-09-2024 Chronic Other nervous system disorders (8 sources) H/O: epilepsy; Translations: [Personal history of other diseases of the nervous system and sense organs] 02-16-2021 Episodic Other nervous system disorders (1 source) Personal history of other diseases of the nervous system and sense organs; Translations: [Personal history of other diseases of the nervous system and sense organs] Onset: 12-02-2024 Episodic Other non-traumatic joint disorders (1 source) Shoulder pain; Translations: [Pain in left shoulder] Episodic Other non-traumatic joint disorders (1 source) Chronic pain of left upper limb; Translations: [Pain in left shoulder] Episodic Other non-traumatic joint disorders (1 source) Pain of left wrist; Translations: [Pain in left wrist] Episodic Other nutritional; endocrine; and metabolic disorders (10 sources) History of diabetes mellitus type 2; Translations: [Personal history of other endocrine, nutritional and metabolic disease] 10-15-2024 Episodic Other nutritional; endocrine; and metabolic disorders (10 sources) Failure to thrive 10-15-2024 Episodic Other nutritional; endocrine; and metabolic disorders (1 source) Adult failure to thrive; Translations: [Adult failure to thrive] Onset: 11-02-2024 Episodic Residual codes; unclassified (10 sources) H/O Spinal surgery; Translations: [Other specified postprocedural states] 02-16-2021 Episodic Residual codes; unclassified (1 source) History of clinical finding in subject; Translations: [Personal history of other specified conditions] Episodic Residual codes; unclassified (2 sources) Needs assistance with community resources; Translations: [Other specified health status] 09-26-2023 Episodic Residual codes; unclassified (3 sources) Edema of foot; Translations: [Localized edema] 09-25-2024 Episodic Residual codes; unclassified (1 source) Localized edema; Translations: [Pedal edema] Onset: 09-26-2024 Episodic Residual codes; unclassified (7 sources) Other specified postprocedural states; Translations: [History of laminectomy] Onset: 12-02-2024 02-16-2021 Episodic Comment on above: x2 Spondylosis; intervertebral disc disorders; other back problems (20 sources) Post-laminectomy syndrome; Translations: [Postlaminectomy syndrome, not elsewhere classified] Onset: 12-08-2021 Chronic Sprains and strains (4 sources) Lower back injury; Translations: [Strain of muscle, fascia and tendon of lower back, initial encounter] Onset: 12-02-2024 11-26-2024 Episodic Superficial injury; contusion (4 sources) Contusion of buttock; Translations: [Contusion of lower back and pelvis, initial encounter] Onset: 12-02-2024 11-26-2024 Episodic Unclassified (1 source) Low back pain, unspecified; Translations: [Low back pain, unspecified] Onset: 11-09-2024 Past or Other Problems Problem Classification Problem Date Documented Da te Episodic/Chronic Diabetes mellitus with complications (20 sources) Diabetic ketoacidosis; Translations: [Type 2 diabetes mellitus with ketoacidosis without coma] Onset: 10-26-2021 Resolved: 08-04-2022 10-28-2021 Chronic Other aftercare (2 sources) terminal carman (current) use of insulin; Translations: [Type 2 diabetes mellitus without complication, with long-term current use of insulin (HCC)] Onset: 12-08-2021 Episodic Spondylosis; intervertebral disc disorders; other back problems (20 sources) Chronic back pain ; Translations: [Dorsalgia, unspecified] Onset: 10-26-2021 10-28-2021 Episodic Unclassified (1 source) Injury of left foot 09-25-2024 Unclassified (1 source) Injury of right foot 09-25-2024 Results Test Name Value Interpretation Reference Range Facility [facility] 12-03-2024 [facility] Telephone (FPWADS) -- LINO WHEELER ([id number]) 1935 M Date Time Provider Department 12/03/24 KEYLA SCHULTZ During your visit today, we recorded the following information about you: Stephen Berry LPN 12/03/2024 10:45 AM Signed Received orders from [facility]. Placed in provider's inbox for review. Route to [place] fax Allergies As of Date: 12/03/2024 Noted Allergy Reaction DILAUDID (HYDROMORPHONE (BULK)) 03/08/2017 1 - Mental Status Change PENICILLIN 01/14/2017 16 - Unknown TORADOL (KETOROLAC) 01/14/2017 9 - Itching Date Reviewed: 03/15/2024 Reviewed by: Delia Chaves LPN - Fully Assessed Reason for Visit: Orders [681] Cmt: [facility] services Prescriptions as of 12/03/2024 - allopurinol (ZYLOPRIM) 300 mg tablet TAKE 1 TABLET BY MOUTH ONCE DAILY - blood sugar diagnostic test strip Use with blood glucose test 3 times daily. - tamsulosin (FLOMAX) 0.4 mg TAKE 1 CAPSULE BY MOUTH ONCE DAILY - escitalopram oxalate (LEXAPRO) 5 mg tablet Take 1 tablet by mouth once daily. - SITagliptin phosphate (JANUVIA) 100 mg tablet Take 1 tablet by mouth once daily. - rosuvastatin (CRESTOR) 10 mg tablet TAKE 1 TABLET BY MOUTH ONCE DAILY - Lancets Use with blood glucose test 3 times daily. - insulin glargine (LANTUS SOLOSTAR U-100 INSULIN) 100 unit/mL (3 mL) INJECT 21 UNITS SUBCUTANEOUSLY EVERY MORNING - amitriptyline (ELAVIL) 25 mg tablet Take 25 mg by mouth daily at bedtime. - levETIRAcetam (KEPPRA) 500 mg tablet TAKE 1 TABLET BY MOUTH TWICE DAILY - gabapentin (NEURONTIN) 100 mg capsule Take 1 capsule by mouth two times a day for 30 days. - azelastine 0.1% nasal spray Use 1 [place] in each nostril two times a day. - atenolol (TENORMIN) 50 mg tablet TAKE ONE-HALF TABLET BY MOUTH ONCE DAILY - Insulin [place], Disposable, (PEN NEEDLE) 32 gauge x 5/32 Use to inject insulin twice daily. - oxyCODONE myristate (XTAMPZA ER) 9 mg CSpT Take 9 mg by mouth twice daily. - Insulin [place], Disposable, (PEN NEEDLE) 32 gauge x 5/32 Use to inject insulin up to 8 times per day. - Blood-Glucose Meter 1 Device three times daily. Test Three times a day. - alcohol swabs Use with blood glucose test 3 times daily. Meds Comments as of 07/23/2019: Poor historian, did not bring list of medication. Unable to verify today 07/22/2019 Problem List As Of Date 12/03/2024 Noted Resolved DKA (diabetic ketoacidosis) ([facility]) [E11.10] 10/26/2021 08/04/2022 Epilepsy (HCC) [G40.909] 10/26/2021 Chronic back pain [M54.9, G89.29] 10/26/2021 Gout [M10.9] 10/26/2021 HTN (hypertension) [I10] 10/26/2021 Hyperlipidemia, mixed [E78.2] 10/26/2021 Prostate cancer (HCC) [C61] 10/26/2021 Chronic bilateral low back pain with bilateral *12/08/2021 DDD (degenerative disc disease), lumbar [M51.36*12/08/2021 Type 2 diabetes mellitus without complication, *12/08/2021 Encounter Status:Closed by STEPHEN BERRY on [facility]03[facility] LINO WHE[facility] ([id number]) 1935 [facility] Date Time Provider Department 12/03/24 KEYLA SCHULTZ During your visit today, we recorded the following information about you: Stephen Berry LPN 12/03/2024 2:26 PM Signed Received orders from [facility]. Placed in provider's inbox for review. Route to [place] fax Delia Chaves LPN 12/07/2024 3:54 PM Signed Orders faxed confirmation received. Allergies As of Date: 12/03/2024 Noted Allergy Reaction DILAUDID (HYDROMORPHONE (BULK)) 03/08/2017 1 - Mental Status Change PENICILLIN 01/14/2017 16 - Unknown TORADOL (KETOROLAC) 01/14/2017 9 - Itching Date Reviewed: 03/15/2024 Reviewed by: Delia Chaves LPN - Fully Assessed Reason for Visit: Orders [681] Cmt: [facility] Prescriptions as of 12/07/2024 - allopurinol (ZYLOPRIM) 300 mg tablet TAKE 1 TABLET BY MOUTH ONCE DAILY - blood sugar diagnostic test strip Use with blood glucose test 3 times daily. - tamsulosin (FLOMAX) 0.4 mg TAKE 1 CAPSULE BY MOUTH ONCE DAILY - escitalopram oxalate (LEXAPRO) 5 mg tablet Take 1 tablet by mouth once daily. - SITagliptin phosphate (JANUVIA) 100 mg tablet Take 1 tablet by mouth once daily. - rosuvastatin (CRESTOR) 10 mg tablet TAKE 1 TABLET BY MOUTH ONCE DAILY - Lancets Use with blood glucose test 3 times daily. - insulin glargine (LANTUS SOLOSTAR U-100 INSULIN) 100 unit/mL (3 mL) INJECT 21 UNITS SUBCUTANEOUSLY EVERY MORNING - amitriptyline (ELAVIL) 25 mg tablet Take 25 mg by mouth daily at bedtime. - levETIRAcetam (KEPPRA) 500 mg tablet TAKE 1 TABLET BY MOUTH TWICE DAILY - gabapentin (NEURONTIN) 100 mg capsule Take 1 capsule by mouth two times a day for 30 days. - azelastine 0.1% nasal spray Use 1 [place] in each nostril two times a day. - atenolol (TENORMIN) 50 mg tablet TAKE ONE-HALF TABLET BY MOUTH ONCE DAILY - Insulin [place], Disposable, (PEN NEEDLE) 32 gauge x 5/32 Use to inject insulin twice daily. - oxyCODONE myristate (XTAMPZA ER) 9 mg CSpT Take 9 mg by mouth twice daily. - Insulin [place], Disposable, (PEN NEEDLE) 32 gauge x 5/32 Use to inject insulin up to 8 times per day. - Blood-Glucose Meter 1 Device three times daily. Test Three times a day. - alcohol swabs Use with blood glucose test 3 times daily. Meds Comments as of 07/23/2019: Poor historian, did not bring list of medication. Unable to verify today 07/22/2019 Problem List As Of Date 12/03/2024 Noted Resolved DKA (diabetic ketoacidosis) (HCC) [E11.10] 10/26/2021 08/04/2022 Epilepsy (HCC) [G40.909] 10/26/2021 Chronic back pain [M54.9, G89.29] 10/26/2021 Gout [M10.9] 10/26/2021 HTN (hypertension) [I10] 10/26/2021 Hyperlipidemia, mixed [E78.2] 10/26/2021 Prostate cancer (HCC) [C61] 10/26/2021 Chronic bilateral low back pain with bilateral *12/08/2021 DDD (degenerative disc disease), lumbar [M51.36*12/08/2021 Type 2 diabetes mellitus without complication, *12/08/2021 Encounter Status:Closed by STEPHEN BERRY on 12/03/24 [facility] LINO WHEELER ([id number]) 1935 M Date Time Provider Department 12/03/24 KEYLA SCHULTZ During your visit today, we recorded the following information about you: Stephen Berry LPN 12/03/2024 11:03 AM Signed Received discharge summary from [facility]. Placed in provider's inbox for review. Route to [place] Delia Phillips LPN 12/03/2024 1:21 PM Signed Orders faxed. Confirmation received Allergies As of Date: 12/03/2024 Noted Allergy Reaction DILAUDID (HYDROMORPHONE (BULK)) 03/08/2017 1 - Mental Status Change PENICILLIN 01/14/2017 16 - Unknown TORADOL (KETOROLAC) 01/14/2017 9 - Itching Date Reviewed: 03/15/2024 Reviewed by: Delia Chaves LPN - Fully Assessed Reason for Visit: Received Outside Medical Records [[id number]] Cmt: [facility] discharge summary Prescriptions as of 12/03/2024 - allopurinol (ZYLOPRIM) 300 mg tablet TAKE 1 TABLET BY MOUTH ONCE DAILY - blood sugar diagnostic test strip Use with blood glucose test 3 times daily. - tamsulosin (FLOMAX) 0.4 mg TAKE 1 CAPSULE BY MOUTH ONCE DAILY - escitalopram oxalate (LEXAPRO) 5 mg tablet Take 1 tablet by mouth once daily. - SITagliptin phosphate (JANUVIA) 100 mg tablet Take 1 tablet by mouth once daily. - rosuvastatin (CRESTOR) 10 mg tablet TAKE 1 TABLET BY MOUTH ONCE DAILY - Lancets Use with blood glucose test 3 times daily. - insulin glargine (LANTUS SOLOSTAR U-100 INSULIN) 100 unit/mL (3 mL) INJECT 21 UNITS SUBCUTANEOUSLY EVERY MORNING - amitriptyline (ELAVIL) 25 mg tablet Take 25 mg by mouth daily at bedtime. - levETIRAcetam (KEPPRA) 500 mg tablet TAKE 1 TABLET BY MOUTH TWICE DAILY - gabapentin (NEURONTIN) 100 mg capsule Take 1 capsule by mouth two times a day for 30 days. - azelastine 0.1% nasal spray Use 1 [place] in each nostril two times a day. - atenolol (TENORMIN) 50 mg tablet TAKE ONE-HALF TABLET BY MOUTH ONCE DAILY - Insulin [place], Disposable, (PEN NEEDLE) 32 gauge x 5/32 Use to inject insulin twice daily. - oxyCODONE myristate (XTAMPZA ER) 9 mg CSpT Take 9 mg by mouth twice daily. - Insulin [place], Disposable, (PEN NEEDLE) 32 gauge x 5/32 Use to inject insulin up to 8 times per day. - Blood-Glucose Meter 1 Device three times daily. Test Three times a day. - alcohol swabs Use with blood glucose test 3 times daily. Meds Comments as of 07/23/2019: Poor historian, did not bring list of medication. Unable to verify today 07/22/2019 Problem List As Of Date 12/03/2024 Noted Resolved DKA (diabetic ketoacidosis) (HCC) [E11.10] 10/26/2021 08/04/2022 Epilepsy (HCC) [G40.909] 10/26/2021 Chronic back pain [M54.9, G89.29] 10/26/2021 Gout [M10.9] 10/26/2021 HTN (hypertension) [I10] 10/26/2021 Hyperlipidemia, mixed [E78.2] 10/26/2021 Prostate cancer (HCC) [C61] 10/26/2021 Chronic bilateral low back pain with bilateral *12/08/2021 DDD (degenerative disc disease), lumbar [M51.36*12/08/2021 Type 2 diabetes mellitus without complication, *12/08/2021 Encounter Status:Closed by STEPHEN BERRY on 12/03/24 Normal [facility] Bedside Glucoseon 11-28-2024 FINGERSTICK GLU 171 mg/dL High 74-106 [facility] Comment on above: Result Comment: TYRONE GEMENT OF PATIENT CARE PER NURSING PROTOCOL Performed By: #### L 500.2500, L100.0100 #### [facility] [address] [place], [address] FINGERSTICK GLU 139 mg/dL High [address] [facility] Comment on above: Result Comment: TYRONE GEMENT OF PATIENT CARE PER NURSING PROTOCOL Performed By: #### L 501.080 #### [facility] [address] [place], [address] FINGERSTICK GLU 103 mg/dL Normal [address] [place] [address] Comment on above: Result Comment: TYRONE GEMENT OF PATIENT CARE PER NURSING PROTOCOL Performed By: #### L 501.080 #### [facility] [address] [place], [address] FINGERSTICK GLU 112 mg/dL High [facility]106 [facility] Comment on above: Result Comment: TYRONE GEMENT OF PATIENT CARE PER NURSING PROTOCOL Performed By: #### L 501.080 #### [facility] [address] [place], [address] [facility] deOrdered By: Gray Pierce on 11-28-2024 Glucose [Mass/Vol] 171 mg/dL High 74-106 [facility] Comment on above: MANAGEMENT OF PATIEN T CARE PER NURSING PROTOCOL Phosphoruson 11-28-2024 Phosphate [Mass/Vol] 2.4 mg/dL Low 2.7-4.5 [facility] Comment on above: Performed By: #### L 500.2500, L100.0100 #### [facility] [address] [place], [address] Bedside Glucoseon 11-27-2024 FINGERSTICK GLU 135 mg/dL High 74-106 [facility] Comment on above: Result Comment: TYRONE GEMENT OF PATIENT CARE PER NURSING PROTOCOL Performed By: #### L 500.2500, L100.0100 #### [facility] [address] [place], [address] FINGERSTICK GLU 140 mg/dL High 74-106 [facility] Comment on above: Result Comment: TYRONE GEMENT OF PATIENT CARE PER NURSING PROTOCOL Performed By: #### L 501.080 #### [facility] [address] [place], [address] FINGERSTICK GLU 131 mg/dL High 74-106 [facility] Comment on above: Result Comment: TYRONE GEMENT OF PATIENT CARE PER NURSING PROTOCOL Performed By: #### L 501.080 ####[facility] [address] [place], [address] [facility] 11-[facility]-20[facility] LINO WHEELER ([id number]) 1935 M [place] Date Time Provider Department 11/27/24 KEYLA SCHULTZ During your visit today, we recorded the following information about you: Stephen Berry LPN 11/27/2024 2:39 PM Signed [facility] Placed in provider's inbox for review. Route to [place] scanning Allergies As of Date: 11/27/2024 Noted Allergy Reaction DILAUDID (HYDROMORPHONE (BULK)) 03/08/2017 1 - Mental Status Change PENICILLIN 01/14/2017 16 - Unknown TORADOL (KETOROLAC) 01/14/2017 9 - Itching Date Reviewed: 03/15/2024 Reviewed by: Delia Chaves LPN - Fully Assessed Reason for Visit: Received Outside Medical Records [[id number]] Cmt: [facility] ED Prescriptions as of 11/27/2024 - allopurinol (ZYLOPRIM) 300 mg tablet TAKE 1 TABLET BY MOUTH ONCE DAILY - blood sugar diagnostic test strip Use with blood glucose test 3 times daily. - tamsulosin (FLOMAX) 0.4 mg TAKE 1 CAPSULE BY MOUTH ONCE DAILY - escitalopram oxalate (LEXAPRO) 5 mg tablet Take 1 tablet by mouth once daily. - SITagliptin phosphate (JANUVIA) 100 mg tablet Take 1 tablet by mouth once daily. - rosuvastatin (CRESTOR) 10 mg tablet TAKE 1 TABLET BY MOUTH ONCE DAILY - Lancets Use with blood glucose test 3 times daily. - insulin glargine (LANTUS SOLOSTAR U-100 INSULIN) 100 unit/mL (3 mL) INJECT 21 UNITS SUBCUTANEOUSLY EVERY MORNING - amitriptyline (ELAVIL) 25 mg tablet Take 25 mg by mouth daily at bedtime. - levETIRAcetam (KEPPRA) 500 mg tablet TAKE 1 TABLET BY MOUTH TWICE DAILY - gabapentin (NEURONTIN) 100 mg capsule Take 1 capsule by mouth two times a day for 30 days. - azelastine 0.1% nasal spray Use 1 [place] in each nostril two times a day. - atenolol (TENORMIN) 50 mg tablet TAKE ONE-HALF TABLET BY MOUTH ONCE DAILY - Insulin [place], Disposable, (PEN NEEDLE) 32 gauge x 5/32 Use to inject insulin twice daily. - oxyCODONE myristate (XTAMPZA ER) 9 mg CSpT Take 9 mg by mouth twice daily. - Insulin [place], Disposable, (PEN NEEDLE) 32 gauge x 5/32 Use to inject insulin up to 8 times per day. - Blood-Glucose Meter 1 Device three times daily. Test Three times a day. - alcohol swabs Use with blood glucose test 3 times daily. Meds Comments as of 07/23/2019: Poor historian, did not bring list of medication. Unable to verify today 07/22/2019 Problem List As Of Date 11/27/2024 Noted Resolved DKA (diabetic ketoacidosis) (HCC) [E11.10] 10/26/2021 08/04/2022 Epilepsy (HCC) [G40.909] 10/26/2021 Chronic back pain [M54.9, G89.29] 10/26/2021 Gout [M10.9] 10/26/2021 HTN (hypertension) [I10] 10/26/2021 Hyperlipidemia, mixed [E78.2] 10/26/2021 Prostate cancer (HCC) [C61] 10/26/2021 Chronic bilateral low back pain with bilateral *12/08/2021 DDD (degenerative disc disease), lumbar [M51.36*12/08/2021 Type 2 diabetes mellitus without complication, *12/08/2021 Encounter Status:Closed by STEPHEN BERRY on 11/27/24 Normal [facility] Hemoglobin A1con 11-27-2024 HbA1c (Bld) [Mass fraction] 6.5 % High <=5.6 [facility] Comment on above: Result Comment: Norm al < 5.7 % Prediabetic 5.7 - 6.4 % Diabetic >or= 6.5 % Please note range changes. Performed By: #### L 100.0100, L500.2500 #### [facility] [address] [place], [place], [id number] Hemoglobin A1c percentageOrd ered By: Isaiah Archer on 11-27-2024 HbA1c (Bld) [Mass fraction] 6.5 % High <5.7 [facility] Comment on above: Normal < 5.7 % Predi abetic 5.7 - 6.4 % Diabetic >or= 6.5 % Please note range changes. Phosphoruson 11-27-2024 Phosphate [Mass/Vol] 2.8 mg/dL Normal 2.7-4.5 [facility] Comment on above: Performed By: #### L 100.0100, L500.2500 #### [facility] [address] [place], [place], [address] TSH DL <= 0.005 mIU/L QnOrde red By: Isaiah Archer on 11-27-2024 TSH Qn 0.804 uIU/mL 0.300-4.200 [facility] Thyroid Stim Hormone (TSH)on 11-27-2024 TSH 0.804 uIU/mL Normal 0.300-4.200 [facility] Comment on above: Performed By: #### L 100.0100, L500.2500 #### [facility] [address] [place], [place], [address] Abdomen/Pelvis without Conto n 11-26-2024 Abdomen/Pelvis without Cont [facility] Imaging Services [address] [place], [place] [address] Abdomen/Pelvis without Cont MR#: [id number] Acct: [id number] Name: LINO WHEELER Rep #: [id number] : 1935 M 89 From: Gray James MD PCP: Dr. Saulo Schultz MD Status: REG ER Study: Abdomen/Pelvis without Cont Date of Exam: 11/15 09/11 Exam# [id number] Ordering Dr: Dl Salazar MD EXAM: CT Abdomen and Pelvis Without Intravenous Contrast CLINICAL INDICATION: RABIA HIP/BACK PAIN TECHNIQUE: Axial computed tomography images of the abdomen and pelvis without intravenous contrast. This CT exam was performed using one or more of the following dose reduction techniques: automated exposure control, adjustment of the mA and/or kV according to patient size, and/or use of iterative reconstruction technique. COMPARISON: No relevant prior studies available. FINDINGS: LUNG BASES: Unremarkable. No mass. No consolidation. MEDIASTINUM: Small esophageal hiatal hernia. ABDOMEN: LIVER: Fatty infiltration of the liver. GALLBLADDER AND BILE DUCTS: Unremarkable. No calcified stones. No ductal dilation. PANCREAS: Unremarkable. No ductal dilation. SPLEEN: Unremarkable. No splenomegaly. ADRENALS: Unremarkable. No mass. KIDNEYS AND URETERS: Bilateral renal cysts. No obstructing stones. No hydronephrosis. STOMACH AND BOWEL: Colonic diverticulosis without acute diverticulitis. No obstruction. PELVIS: APPENDIX: No findings to suggest acute appendicitis. BLADDER: Unremarkable. No stones. REPRODUCTIVE: Unremarkable as visualized. ABDOMEN and PELVIS: INTRAPERITONEAL SPACE: Unremarkable. No free air. No significant fluid collection. BONES/JOINTS: Degenerative disc disease throughout the lumbar spine. Degenerative facet arthropathy throughout the lumbar spine, most prominent in the lower lumbar spine. No acute fracture. No dislocation. SOFT TISSUES: Inguinal hernias, bilaterally. VASCULATURE: Scattered calcified atherosclerotic disease of aorta. No abdominal aortic aneurysm. LYMPH NODES: Unremarkable. No enlarged lymph nodes. CT/Abdomen/Pelvis without Cont IMPRESSION: 1. Small esophageal hiatal hernia. 2. Inguinal hernias, bilaterally. 3. Colonic diverticulosis without acute diverticulitis. 4. Degenerative changes lumbar spine as described. Reading Location: [facility] CC: Dr. Dl Salazar MD; Dr. Saulo Schultz MD Bisque Placer: Signed Normal [facility] Absolute lymphocyte countOrd ered By: Dl Salazar on 11-26-2024 Lymphocytes Auto (Unsp spec) [#/Vol] 1.13 10*3/uL 0.83-4.51 [facility] Absolute neutrophil countOrd ered By: Dl Salazar on 11-26-2024 Neutrophils (Bld) [#/Vol] 6.5 10*3/uL 2.0-7.7 [facility] Anion gap in Serum or Plasma Ordered By: Dl Salazar on 11-26-2024 Anion gap [Moles/Vol] 13 mmol/L 5-15 [facility] Automated lymphocyte count a s percentage of total leukocytesOrdered By: Dl Salazar on 11-26-2024 Lymphocytes/100 WBC Auto (Unsp spec) 14.0 % Low 19-41 [facility] BUN/creatinine ratioOrdered By: Dl Salazar on 11-26-2024 Urea nitrogen/Creatinine [Mass ratio] 20.2 mg/mg High 05-06 [facility] Basic Metabolic Profile (BMP )on 11-26-2024 BUN/CRE 20.2 RATIO High 05-06 [facility] Comment on above: Performed By: #### L 500.2500, L100.0100 ####[facility] [address] [place], [address] Calcium [Mass/Vol] 9.7 mg/dL Normal 7.6-11.0 [facility] Comment on above: Performed By: #### L 500.2500, L100.0100 ####[facility] [address] [place], [address] Chloride [Moles/Vol] 102 mmol/L Normal 98-108 [facility] Comment on above: Performed By: #### L 500.2500, L100.0100 ####[facility] [address] [place], [address] CO2 [Moles/Vol] 25.0 mmol/L Normal 21.0-32.0 [facility] Comment on above: Performed By: #### L 500.2500, L100.0100 ####[facility] [address] [place], [address] Creatinine [Mass/Vol] 0.78 mg/dL Normal 0.70-1.20 [facility] Comment on above: Performed By: #### L 500.2500, L100.0100 ####[facility] [address] [place], [address] GAP 13 Normal 5-15 [facility] Comment on above: Performed By: #### L 500.2500, L100.0100 ####[facility] [address] [place], [address] GFR/1.73 sq M.predicted among non-blacks MDRD (S/P/Bld) [Vol rate/Area] 85 mL/min/{1.73_m2} Normal >60 [facility] Comment on above: Result Comment: mL/m in/1.73m2 CKD-EPI Creatinine Equation (2020) Performed By: #### L 500.2500, L100.0100 ####[facility] [address] [place], [address] Glucose [Mass/Vol] 142 mg/dL High 70-99 [facility] Comment on above: Performed By: #### L 500.2500, L100.0100 ####[facility] [address] [place], [address] Potassium [Moles/Vol] 4.0 mmol/L Normal 3.3-5.1 [facility] Comment on above: Performed By: #### L 500.2500, L100.0100 ####[facility] [address] [place], [address] Sodium [Moles/Vol] 140 mmol/L Normal 133-145 [facility] Comment on above: Performed By: #### L 500.2500, L100.0100 ####[facility] [address] [place], [address] Urea nitrogen [Mass/Vol] 16 mg/dL Normal 4-19 [facility] Comment on above: Performed By: #### L 500.2500, L100.0100 ####[facility] [address] [place], [address] Basophil percentageOrdered B y: Dl Salazar on 11-26-2024 Basophils/100 WBC (Bld) 0.4 % 0-1 [facility] Bedside Glucoseon 11-26-2024 FINGERSTICK GLU 131 mg/dL High 74-106 [facility] Comment on above: Result Comment: TYRONE OVERTON OF PATIENT CARE PER NURSING PROTOCOL Performed By: #### L 501.080 #### [facility] Laboratory [address] [place], [address] Bilirubin Test strip Ql (U)O rdered By: Dl Salazar on 11-26-2024 Bilirubin Ql (U) Negative Negative [facility] CBC W/Diff, Automatedon 11-15 Absolute Lymph 1.13 X10 3/uL Normal 0.83-4.51 [facility] Comment on above: Performed By: #### L 500.2500, L100.0100 ####[facility] [address] [place], [address] Absolute Neut 6.5 X10 3/uL Normal 2.0-7.7 [facility] Comment on above: Performed By: #### L 500.2500, L100.0100 ####[facility] [address] [place], [address] Basophils/100 WBC (Bld) 0.4 % Normal 0-1 [facility] Comment on above: Performed By: #### L 500.2500, L100.0100 ####[facility] [address] [place], [address] Eosinophils/100 WBC (Bld) 0.9 % Normal 0-5 [facility] Comment on above: Performed By: #### L 500.2500, L100.0100 ####[facility] [address] [place], [address] Erythrocyte distribution width (RBC) [Ratio] 13.7 % Normal 11.6-14.6 [facility] Comment on above: Performed By: #### L 500.2500, L100.0100 ####[facility] [address] [place], [address] Hematocrit (Bld) [Volume fraction] 41.9 % Normal 40-54 [facility] Comment on above: Performed By: #### L 500.2500, L100.0100 ####[facility] [address] [place], [address] Hemoglobin (Bld) [Mass/Vol] 13.5 g/dL Normal 13.0-16.5 [facility] Comment on above: Performed By: #### L 500.2500, L100.0100 ####[facility] [address] [place], [address] IG% 0.200 Normal 0.0-0.9 [facility] Comment on above: Result Comment: IG% - Immature Granulocytes (promyelocytes, myelocytes and metamyelocytes) > 1% indicates that a LEFT SHIFT is Present. Performed By: #### L 500.2500, L100.0100 ####[facility] [address] [place], [address] Lymphocytes/100 WBC (Bld) 14.0 % Low 19-41 [facility] Comment on above: Performed By: #### L 500.2500, L100.0100 ####[facility] [address] [place], [address] MCH (RBC) [Entitic mass] 30.1 pg Normal 27.0-32.0 [facility] Comment on above: Performed By: #### L 500.2500, L100.0100 ####[facility] [address] [place], [address] MCHC (RBC) [Mass/Vol] 32.2 g/dL Normal 32-36 [facility] Comment on above: Performed By: #### L 500.2500, L100.0100 ####[facility] [address] [place], [address] MCV (RBC) [Entitic vol] 93.5 fL Normal 80-94 [facility] Comment on above: Performed By: #### L 500.2500, L100.0100 ####[facility] [address] [place], [address] Monocytes/100 WBC (Bld) 4.3 % Normal 0-10 [facility] Comment on above: Performed By: #### L 500.2500, L100.0100 ####[facility] [address] [place], [address] Neutrophils/100 WBC (Bld) 80.2 % High 47-70 [facility] Comment on above: Performed By: #### L 500.2500, L100.0100 ####[facility] [address] [place], [address] Nucleated RBC (Bld) [#/Vol] 0 10*3/uL Normal 0-5 [facility] Comment on above: Performed By: #### L 500.2500, L100.0100 ####[facility] [address] [place], [address] Platelet mean volume (Bld) [Entitic vol] 10.3 fL Normal 6.2-12.0 [facility] Comment on above: Performed By: #### L 500.2500, L100.0100 ####[facility] [address] [place], [address] Platelets (Bld) [#/Vol] 256 10*3/uL Normal 150-450 [facility] Comment on above: Performed By: #### L 500.2500, L100.0100 ####[facility] [address] [place], [address] RBC (Bld) [#/Vol] 4.48 10*6/uL Low 4.6-6.2 [facility] Comment on above: Performed By: #### L 500.2500, L100.0100 ####[facility] [address] [place], [address] RDW SD 46.7 fl High 35.1-43.9 [facility] Comment on above: Performed By: #### L 500.2500, L100.0100 ####[facility] [address] [place], [address] WBC (Bld) [#/Vol] 8.1 10*3/uL Normal 4.4-11.0 [facility] Comment on above: Performed By: #### L 500.2500, L100.0100 ####[facility] [address] [place], [address] CNPNon 11-26-2024 [facility] SUMMERLINO Paulette ([id number]) 1935 M Date Time Provider Department 11/26/24 KEYLA SCHULTZ During your visit today, we recorded the following information about you: Rockmendez Antoinette 11/26/2024 10:44 AM Signed Fatemeh from [employer] calling today to notify that patient is being discharged from home care because patient is refusing care. Allergies As of Date: 11/26/2024 Noted Allergy Reaction DILAUDID (HYDROMORPHONE (BULK)) 03/08/2017 1 - Mental Status Change PENICILLIN 01/14/2017 16 - Unknown TORADOL (KETOROLAC) 01/14/2017 9 - Itching Date Reviewed: 03/15/2024 Reviewed by: Delia Chaves LPN - Fully Assessed Prescriptions as of 11/26/2024 - allopurinol (ZYLOPRIM) 300 mg tablet TAKE 1 TABLET BY MOUTH ONCE DAILY - blood sugar diagnostic test strip Use with blood glucose test 3 times daily. - tamsulosin (FLOMAX) 0.4 mg TAKE 1 CAPSULE BY MOUTH ONCE DAILY - escitalopram oxalate (LEXAPRO) 5 mg tablet Take 1 tablet by mouth once daily. - SITagliptin phosphate (JANUVIA) 100 mg tablet Take 1 tablet by mouth once daily. - rosuvastatin (CRESTOR) 10 mg tablet TAKE 1 TABLET BY MOUTH ONCE DAILY - Lancets Use with blood glucose test 3 times daily. - insulin glargine (LANTUS SOLOSTAR U-100 INSULIN) 100 unit/mL (3 mL) INJECT 21 UNITS SUBCUTANEOUSLY EVERY MORNING - amitriptyline (ELAVIL) 25 mg tablet Take 25 mg by mouth daily at bedtime. - levETIRAcetam (KEPPRA) 500 mg tablet TAKE 1 TABLET BY MOUTH TWICE DAILY - gabapentin (NEURONTIN) 100 mg capsule Take 1 capsule by mouth two times a day for 30 days. - azelastine 0.1% nasal spray Use 1 [place] in each nostril two times a day. - atenolol (TENORMIN) 50 mg tablet TAKE ONE-HALF TABLET BY MOUTH ONCE DAILY - Insulin [place], Disposable, (PEN NEEDLE) 32 gauge x 5/32 Use to inject insulin twice daily. - oxyCODONE myristate (XTAMPZA ER) 9 mg CSpT Take 9 mg by mouth twice daily. - Insulin [place], Disposable, (PEN NEEDLE) 32 gauge x 5/32 Use to inject insulin up to 8 times per day. - Blood-Glucose Meter 1 Device three times daily. Test Three times a day. - alcohol swabs Use with blood glucose test 3 times daily. Meds Comments as of 07/23/2019: Poor historian, did not bring list of medication. Unable to verify today 07/22/2019 Problem List As Of Date 11/26/2024 Noted Resolved DKA (diabetic ketoacidosis) (HCC) [E11.10] 10/26/2021 08/04/2022 Epilepsy (HCC) [G40.909] 10/26/2021 Chronic back pain [M54.9, G89.29] 10/26/2021 Gout [M10.9] 10/26/2021 HTN (hypertension) [I10] 10/26/2021 Hyperlipidemia, mixed [E78.2] 10/26/2021 Prostate cancer (HCC) [C61] 10/26/2021 Chronic bilateral low back pain with bilateral *12/08/2021 DDD (degenerative disc disease), lumbar [M51.36*12/08/2021 Type 2 diabetes mellitus without complication, *12/08/2021 Encounter Status:Closed by STEPHEN BERRY on 11/26/24 Normal [facility] Carbon dioxide, total [Moles /volume] in Central venous bloodOrdered By: Dl Salazar on 11-26-2024 CO2 [Moles/Vol] 25.0 mmol/L 21.0-32.0 [facility] Chest PA and Lateralon 11-26 Chest PA and Lateral [facility] [address] [place] [address] Chest PA and Lateral MR#: [id number] Acct: [id number] Name: LINO WHEELER Rep #: [id number] : 1935 M 89 From: Isaiah Burks PCP: Dr. Saulo Schultz MD Status: REG ER Study: Chest PA and Lateral Date of Exam: 11/26/24 Exam# [id number] Ordering Dr: Dl Salazar MD PROCEDURE: CHEST PA AND LATERAL 11/26/2024 REASON FOR EXAM: FALL, DEBILITY TECHNIQUE: Three-view AP and lateral chest. COMPARISON: [employer] Delivery Consultant from the chest CT 11/02/2024. RAD/Chest PA and Lateral IMPRESSION: Marked left hemidiaphragm elevation is seen, with adjacent left basilar atelectasis. No definite pulmonary edema is seen. No pleural effusion or pneumothorax is evident. The cardiomediastinal silhouette is stable, without evidence of cardiomegaly. A prominently calcified aorta is noted. Left glenohumeral joint degenerative changes are again noted. Thoracic rightward curvature is also noted. No acute osseous change is seen., although sensitivity may reduced, at least in part, due to the presence of generalized osteopenia. Reading Location: [place] [address] CC: Dr. Dl Salazar MD; Dr. Saulo Schultz MD Bisque Placer: Signed Normal [facility] Chloride assayOrdered By: Chadwick Salazar on 11-26-2024 Chloride [Moles/Vol] 102 mmol/L 98-108 [facility] Emergency Department Summary on 11-26-2024 Emergency Department Summary [facility] Medical Records Department [address] [place] [address] Emergency Department Summary 11/26/24 MR#: [id number] Acct: [id number] Name: LINO WHEELER Rep #: [id number] : 1935 89 From: Dl Salazar MD PCP: Dr. Saulo Schultz MD Status:REG ER Location: ED HPI HPI - Fall History of Present Illness Chief Complaint: Fall Informant: patient and EMS Narrative Narrative: 89-year-old male states he was going from 1 room of his home to another and his right knee gave out on him which it has done in the past, causing him to fall to his buttocks. He has pain in both buttocks, and in his low back up to his mid back. He denies any other injuries. Pain in his right knee is mild. He denies any prodromal symptoms otherwise. Denies any recent illness. He states some type of mental health social worker came to his home several weeks ago and told him that he was not okay to live by himself. States he uses a walker sometimes to help get around. [facility] Medical History Failure to thrive History of diabetes mellitus, type II History of seizure disorder Gout Drooping eyelid Home Medications ???Medication ???Instructions ???Recorded ???Last Taken ???Type allopurinol 300 mg tablet 300 mg PO DAILY 10/15/24 Unknown H istory amitriptyline 25 mg tablet 25 mg PO DAILY 10/15/24 Unknown Hi story insulin glargine 100 unit/mL (3 unit subcut 10/15/24 Unknown Histo ry mL) subcutaneous pen (Lantus Solostar U-100 Insulin) levetiracetam 500 mg tablet 500 mg PO BID 10/15/24 Unknown His tory sitagliptin phosphate 100 mg 100 mg PO DAILY 10/15/24 Unknown H istory tablet (Januvia) tamsulosin 0.4 mg capsule 0.4 mg PO DAILY 10/15/24 Unknown H istory hydroxyzine pamoate 25 mg capsule 25 mg PO QHS PRN insomnia #30 09/11 Unknown Rx CAPSULES oxymetazoline 0.05 % nasal spray 2 spray intranasal BID PRN Nasal 0 10/17/24 Unknown Rx (12 Hour Nasal Relief [place]) congestion 30 days #0 mL sennosides 8.6 mg-docusate sodium 2 tab PO BID #0 tabs 10/17/24 Unk nown Rx 50 mg tablet (Stimulant Laxative Plus) insulin lispro 100 unit/mL See Protocol subcut TIDCM #15 mL 0 10/18/24 Unknown Rx subcutaneous half-unit pen (Humalog Andrews KwikPen (U-100)) rosuvastatin 10 mg tablet 10 mg PO DAILY 1 month #30 tabs Unknown Rx metoprolol tartrate 25 mg tablet 25 mg PO BID #60 tabs 11/09/24 Unk nown Rx oxycodone myristate 18 mg capsule 18 mg PO BID 3 days #6 ea 5 Unknown Rx sprinkle extended release 12hr(DON'T CRUSH) (Xtampza ER) Allergy/AdvReac Type Severity Reaction Status Date / Time Penicillins Allergy Mild Hives Verified 11/26/24 13:31 hydromorphone (From Dilaudid) Allergy Hallucinati Verified 11/26/24 13:31 ons ketorolac (From Toradol) Allergy Itching Verified 11/26/24 13:31 Family History Father Tuberculosis Surgical History History of back surgery Hx of laminectomy Social History household members: spouse housing: house Smoking Status: Never smoker Smokeless tobacco user: chewing tobacco alcohol intake: never what type of physical activity do you participate in: none do you feel safe at home: Yes ROS ROS ED Constitutional Constitutional ED: Denies chills or fever(s) Eyes Eyes: Denies change in vision or diplopia ENT ENT ED: Denies rhinorrhea or sore throat Cardiovascular Cardiovascular: Denies chest pain or palpitations Respiratory/Chest Respiratory/Chest: Denies cough or dyspnea Gastrointestinal Gastrointestinal: Denies abdominal pain, diarrhea, nausea or vomiting Genitourinary Genitourinary ED: Denies dysuria or hematuria Musculoskeletal Musculoskeletal: Reports back pain; Denies neck pain Integumentary Denies abscess or rash Neurologic Neurologic: Denies headache(s), paresthesias or weakness Psychiatric Psychiatric: Denies suicidal thoughts EXAM Physical Exam Const Vital Signs: 11/26/24 13:31 11/26/24 16:30 11/26/24 16:30 Temperature 97.8 F Temperature Source Oral Pulse Rate 76 77 Respiratory Rate 15 Respiratory Effort Normal Non-Labored Respiratory Depth Normal Respiratory Pattern Normal Blood Pressure 111/78 148/112 H Blood Pressure Mean 89 124 Pulse Ox 93 99 98 Oxygen Delivery Method Room Air Room Air 11/26/24 18:00 11/26/24 20:00 Temperature Temperature Source Pulse Rate 77 75 Respiratory Rate Respiratory Effort Respiratory Depth Respiratory Pattern Blood Pressure 173/90 H 148/99 H Blood Pressure Mean 117 115 Pulse Ox 99 98 Oxyg (more content not included)... Normal [facility] Eosinophil percentageOrdered By: Dl Salazar on 11-26-2024 Eosinophils/100 WBC (Bld) 0.9 % 0-5 [facility] Erythrocyte distribution wid th ratioOrdered By: Dl Salazar on 11-26-2024 Erythrocyte distribution width (RBC) [Ratio] 13.7 % 11.6-14.6 [facility] Erythrocyte distribution wid th standard deviationOrdered By: Dl Salazar on 11-26-2024 Erythrocyte distribution width (RBC) [Ratio] 46.7 fl High 35.1-43.9 [facility] Glomerular filtration rate ( GFR) estimation/1.73 sq m using serum, plasma, or whole bOrdered By: Dl Salazar on 11-26-2024 GFR/1.73 sq M.predicted among non-blacks MDRD (S/P/Bld) [Vol rate/Area] 85 mL/min/{1.73_m2} >60 [facility] Comment on above: mL/min/1.73m2 CKD-EP I Creatinine Equation (2020) H AND P Exam - Hospitaliston 11-26-2024 H&P Exam - Hospitalist [facility] Medical Records Department [address] [place] [address] H P Exam - Hospitalist 11/26/24 2111 MR#: [id number] Acct: [id number] Name: LINO WHEELER Rep #: [id number] : 1935 89 From: Isaiah Gómez DO PCP: Dr. Saulo Schultz MD Status:ADM ALEX Location: [place] [address] HPI - General General Date of Admission: 11/26/24 Date of Service: 11/26/24 Chief Complaint: Fall. 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, depression; on amitriptyline, gout; on allopurinol, BPH with history of urinary obstruction; on tamsulosin, OA; with spinal stenosis of lumbar region with radiculopathy with history of laminectomy x 2; with chronic low back pain followed by pain management on oxycodone 18 mg PO BID and chronic debility with frequent falls with adult dgkplrj-kw-sukley causing patient to often use a walker to mobilize with recent admission here from October 31, 2023 to November 09, 2024 for adult bnaheqa-mm-njcjxh with patient refusing ECF - but also unable to care for himself who presents to [facility] ER complaining of Fall. Mr. Wheeler states his symptoms began approximately one hour prior to arrival when he was at home and going from one room to another when his Right knee gave out on him (as it has many times in the past) causing him to fall onto his buttocks. He then experienced severe pain in both buttocks that radiated in to his mid back. He denies LOC, head trauma or any other significant injuries with his fall and his pain in is Right knee is reportedly mild. Unfortunately, his primarily takes care of his and she is currently hospitalized her after a recent kyphoplasty with plans to discharge to SNF for rehabilitation leaving the patient with no one to care for him. There is family out of town but apparently no one can come and help him return home at this time resulting in the hospitalist service being contacted to admit him. There was no reported fever, chills, visual changes, runny nose, sore throat, ear pain nausea, vomiting, diarrhea, abdominal pain, chest pain, shortness of breath, dysuria, headache or rash. He was then admitted to the general medical floor under observation status for ongoing care for status for a stay that is expected to be less than 2 midnights. [facility] Medical History Failure to thrive History of diabetes mellitus, type II History of seizure disorder Gout Drooping eyelid Home Medications ???Medication ???Instructions ???Recorded ???Last Taken ???Type allopurinol 300 mg tablet 300 mg PO DAILY 10/15/24 Unknown H istory amitriptyline 25 mg tablet 25 mg PO DAILY 10/15/24 Unknown Hi story insulin glargine 100 unit/mL (3 unit subcut 10/15/24 Unknown Histo ry mL) subcutaneous pen (Lantus Solostar U-100 Insulin) levetiracetam 500 mg tablet 500 mg PO BID 10/15/24 Unknown His tory sitagliptin phosphate 100 mg 100 mg PO DAILY 10/15/24 Unknown H istory tablet (Januvia) tamsulosin 0.4 mg capsule 0.4 mg PO DAILY 10/15/24 Unknown H istory hydroxyzine pamoate 25 mg capsule 25 mg PO QHS PRN insomnia #30 09/11 Unknown Rx CAPSULES oxymetazoline 0.05 % nasal spray 2 spray intranasal BID PRN Nasal 0 10/17/24 Unknown Rx (12 Hour Nasal Relief [place]) congestion 30 days #0 mL sennosides 8.6 mg-docusate sodium 2 tab PO BID #0 tabs 10/17/24 Unk nown Rx 50 mg tablet (Stimulant Laxative Plus) insulin lispro 100 unit/mL See Protocol subcut TIDCM #15 mL 0 10/18/24 Unknown Rx subcutaneous half-unit pen (Humalog Andrews KwikPen (U-100)) rosuvastatin 10 mg tablet 10 mg PO DAILY 1 month #30 tabs Unknown Rx metoprolol tartrate 25 mg tablet 25 mg PO BID #60 tabs 11/09/24 Unk nown Rx oxycodone myristate 18 mg capsule 18 mg PO BID 3 days #6 ea 11/09/ 5 Unknown Rx sprinkle extended release 12hr(DON'T CRUSH) (Xtampza ER) Allergy/AdvReac Type Severity Reaction Status Date / Time Penicillins Allergy Mild Hives Verified 11/26/24 13:31 hydromorphone (From Dilaudid) Allergy Hallucinati Verified 11/26/24 13:31 ons ketorolac (From Toradol) Allergy Itching Verified 11/26/24 13:31 Family History Father Tuberculosis Surgical History History of back surgery Hx of laminectomy Social History household members: spouse housing: house Smoking Status: Never smoker Smokeless to (more content not included)... Normal [facility] Hematocrit Auto (Bld) [Volum e fraction]Ordered By: Dl Salazar on 11-26-2024 Hematocrit (Bld) [Volume fraction] 41.9 % 40-54 [facility] Hemoglobin measurementOrdere d By: Dl Salazar on 11-26-2024 Hemoglobin (Bld) [Mass/Vol] 13.5 g/dL 13.0-16.5 [facility] Immature granulocytes/100 WB C Auto (Bld)Ordered By: Dl Salazar on 11-26-2024 Immature granulocytes/100 WBC (Bld) 0.200 % 0.0-0.9 [facility] Comment on above: IG% - Immature Granu locytes (promyelocytes, myelocytes and metamyelocytes) > 1% indicates that a LEFT SHIFT is Present. Ketones Test strip Ql (U)Ord ered By: Dl Salazar on 11-26-2024 Ketones Ql (U) 50 mg/dl High Negative [facility] MCV (mean corpuscular volume ) determinationOrdered By: Dl Salazar on 11-26-2024 MCV (RBC) [Entitic vol] 93.5 fL 80-94 [facility] Magnesiumon 11-26-2024 Magnesium [Mass/Vol] 2.0 mg/dL Normal 1.5-2.2 [facility] Comment on above: Performed By: #### L 501.080 #### [facility] [address] [place] [address], [id number] Magnesium measurement (mass/ volume)Ordered By: Isaiah Archer on 11-26-2024 Magnesium (Unsp spec) [Mass/Vol] 2.0 mg/dL 1.5-2.2 [facility] Mean corpuscular hemoglobin (MCH) determinationOrdered By: Dl Salazar on 11-26-2024 MCH (RBC) [Entitic mass] 30.1 pg 27.0-32.0 [facility] Mean corpuscular hemoglobin concentration (MCHC) determinationOrdered By: Dl Salazar on 11-26-2024 MCHC (RBC) [Mass/Vol] 32.2 g/dL 32-36 [facility] Mean platelet volume determi nationOrdered By: Dl Salazar on 11-26-2024 Platelet mean volume (Bld) [Entitic vol] 10.3 fL 6.2-12.0 [facility] Microscopic analysis of urin e for red blood cells (RBC)Ordered By: Dl Salazar on 11-26-2024 Microscopic analysis of urine for red blood cells (RBC) 0-5 SEEN /hpf 0-5 [facility] Monocyte percentageOrdered B y: Dl Salazar on 11-26-2024 Monocytes/100 WBC (Bld) 4.3 % 0-10 [facility] Mucus LM Ql (Urine sed)Order ed By: Dl Salazar on 11-26-2024 Mucus Ql (Urine sed) 0 SEEN /hpf [facility] Neutrophil percentageOrdered By: Dl Salazar on 11-26-2024 Neutrophils/100 WBC (Bld) 80.2 % High 47-70 [facility] Nitrite Test strip Ql (U)Ord ered By: Dl Salazar on 11-26-2024 Nitrite Ql (U) Negative Negative [facility] Nucleated red blood cell per centageOrdered By: Dl Salazar on 11-26-2024 Nucleated RBC/100 WBC (Bld) [Ratio] 0 % 0-5 [facility] Platelet countOrdered By: Chadwick Salazar on 11-26-2024 Platelets (Bld) [#/Vol] 256 10*3/uL 150-450 [facility] Potassium measurement (mass/ volume)Ordered By: Dl Salazar on 11-26-2024 Potassium (Unsp spec) [Mass/Vol] 4.0 mmol/L 3.3-5.1 [facility] Protein Test strip Ql (U)Ord ered By: Dl Salazar on 11-26-2024 Protein Ql (U) 15 mg/dl High Negative [facility] RBC Auto (Bld) [#/Vol]Ordere d By: Dl Salazar on 11-26-2024 RBC (Bld) [#/Vol] 4.48 10*6/uL Low 4.6-6.2 [facility] Serum creatinine measurement (mass/volume)Ordered By: Dl Salazar on 11-26-2024 Creatinine [Mass/Vol] 0.78 mg/dL 0.70-1.20 [facility] Serum glucose measurement (m ass/volume)Ordered By: Dl Salazar on 11-26-2024 Glucose [Mass/Vol] 142 mg/dL High 70-99 [facility] Serum or plasma calcium jose urement (mass/volume)Ordered By: Dl Salazar on 11-26-2024 Calcium [Mass/Vol] 9.7 mg/dL 7.6-11.0 [facility] Serum or plasma urea nitroge n measurement (mass/volume)Ordered By: Dl Salazar on 11-26-2024 Urea nitrogen [Mass/Vol] 16 mg/dL 4-19 [facility] Sodium levelOrdered By: Farooq Salazar on 11-26-2024 Sodium [Moles/Vol] 140 mmol/L 133-145 [facility] Squamous epithelial cells de tection in urine sediment by light microscopyOrdered By: Dl Salazar on 11-26-2024 Epithelial cells.squamous LM Ql (Urine sed) 0 SEEN /hpf 0-5 [facility] Urinalysis, Completeon 11-26 RBC 0-5 SEEN Normal 0-5 [facility] Comment on above: Order Comment: Urine , Random Performed By: #### L [id number] ####[facility] [address] [place], [address] WBC 0-5 SEEN Normal 0-5 [facility] Comment on above: Order Comment: Urine , Random Performed By: #### L [id number] ####[facility] [address] [place], [address] BACTERIA 0 SEEN Normal None Seen [facility] Comment on above: Order Comment: Urine , Random Performed By: #### L [id number] ####[facility] [address] [place], [address] EPI,SQUAMOUS 0 SEEN Normal 0-5 [facility] Comment on above: Order Comment: Urine , Random Performed By: #### L [id number] ####[facility] [address] [place], [address] Mucus Ql (Urine sed) 0 SEEN Normal [facility] Comment on above: Order Comment: Urine , Random Performed By: #### L [id number] ####[facility] [address] [place], [address] Urine clarityOrdered By: Thom Salazar on 11-26-2024 Clarity (U) Clear Clear [facility] Urine color determinationOrd ered By: Dl Salazar on 11-26-2024 Color (U) Yellow Yellow [facility] Urine glucose detectionOrder ed By: Dl Salazar on 11-26-2024 Glucose Ql (U) Normal mg/dl Normal [facility] Urine leukocyte esterase det ection by dipstickOrdered By: Dl Salazar on 11-26-2024 Leukocyte esterase Test strip Ql (U) Negative Negative [facility] Urine pHOrdered By: Dl Salazar on 11-26-2024 pH (U) 7.0 [pH] 5.0 - 8.0 [facility] Urine sediment bacteria coun t by microscopy (number/high power field)Ordered By: Dl Salazar on 11-26-2024 Bacteria LM.HPF (Urine sed) [#/Area] 0 /[HPF] None Seen [facility] Urine specific gravity measu rementOrdered By: Dl Salazar on 11-26-2024 Specific gravity (U) [Rel density] 1.010 1.002-1.030 [facility] Urine urobilinogen measureme ntOrdered By: Dl Salazar on 11-26-2024 Urobilinogen Ql (U) Normal mg/dl Normal [facility] White blood cell (WBC) count Ordered By: Dl Salazar on 11-26-2024 WBC (Bld) [#/Vol] 8.1 10*3/uL 4.4-11.0 [facility] White blood cell countOrdere d By: Dl Salazar on 11-26-2024 White blood cell count 0-5 SEEN /hpf 0-5 [facility] CNPNon 11-20-2024 CNPN Telephone (FPWADS) -- LINO WHEELER ([id number]) 1935 M Date Time Provider Department 11/20/24 KEYLA SCHULTZ During your visit today, we recorded the following information about you: Johanna Selby 11/20/2024 3:45 PM Signed Lino is calling Keyla Schultz MD today with concern regarding Multiple Concerns Safety concerns for patient now that his is in the hospital and he will be left at the home alone over night. Tried to call squad and he said that he would refuse that. He is not going any where until he speaks to his sons. Patient has been identified by name and birthdate. Duration of symptoms: N/A Person calling: [facility] Was an appointment scheduled: No Closing statement: Results or non-symptom based questions: Thank you for calling [facility], your call will be returned within the next business day. Kate Butler, RN 11/20/2024 4:13 PM Signed Called patient to triage his concern and he said he is not concerned about his safety at this time just wants to know what is wrong with his 's back. Patient states the reason he called is because he wants Dr. Schultz to prescribe him a continuous glucose monitor. He said he is not having any trouble with his sugar at home, the nurse checks it a couple times a week. Advised appointment. Patient accepted an appointment Tuesday. Scheduled. Allergies As of Date: 11/20/2024 Noted Allergy Reaction DILAUDID (HYDROMORPHONE (BULK)) 03/08/2017 1 - Mental Status Change PENICILLIN 01/14/2017 16 - Unknown TORADOL (KETOROLAC) 01/14/2017 9 - Itching Date Reviewed: 03/15/2024 Reviewed by: Delia Chaves LPN - Fully Assessed Reason for Visit: Multiple Concerns [253] Prescriptions as of 11/20/2024 - allopurinol (ZYLOPRIM) 300 mg tablet TAKE 1 TABLET BY MOUTH ONCE DAILY - blood sugar diagnostic test strip Use with blood glucose test 3 times daily. - tamsulosin (FLOMAX) 0.4 mg TAKE 1 CAPSULE BY MOUTH ONCE DAILY - escitalopram oxalate (LEXAPRO) 5 mg tablet Take 1 tablet by mouth once daily. - SITagliptin phosphate (JANUVIA) 100 mg tablet Take 1 tablet by mouth once daily. - rosuvastatin (CRESTOR) 10 mg tablet TAKE 1 TABLET BY MOUTH ONCE DAILY - Lancets Use with blood glucose test 3 times daily. - insulin glargine (LANTUS SOLOSTAR U-100 INSULIN) 100 unit/mL (3 mL) INJECT 21 UNITS SUBCUTANEOUSLY EVERY MORNING - amitriptyline (ELAVIL) 25 mg tablet Take 25 mg by mouth daily at bedtime. - levETIRAcetam (KEPPRA) 500 mg tablet TAKE 1 TABLET BY MOUTH TWICE DAILY - gabapentin (NEURONTIN) 100 mg capsule Take 1 capsule by mouth two times a day for 30 days. - azelastine 0.1% nasal spray Use 1 [place] in each nostril two times a day. - atenolol (TENORMIN) 50 mg tablet TAKE ONE-HALF TABLET BY MOUTH ONCE DAILY - Insulin [place], Disposable, (PEN NEEDLE) 32 gauge x 5/32 Use to inject insulin twice daily. - oxyCODONE myristate (XTAMPZA ER) 9 mg CSpT Take 9 mg by mouth twice daily. - Insulin [place], Disposable, (PEN NEEDLE) 32 gauge x 5/32 Use to inject insulin up to 8 times per day. - Blood-Glucose Meter 1 Device three times daily. Test Three times a day. - alcohol swabs Use with blood glucose test 3 times daily. Meds Comments as of 07/23/2019: Poor historian, did not bring list of medication. Unable to verify today 07/22/2019 Problem List As Of Date 11/20/2024 Noted Resolved DKA (diabetic ketoacidosis) (HCC) [E11.10] 10/26/2021 08/04/2022 Epilepsy (HCC) [G40.909] 10/26/2021 Chronic back pain [M54.9, G89.29] 10/26/2021 Gout [M10.9] 10/26/2021 HTN (hypertension) [I10] 10/26/2021 Hyperlipidemia, mixed [E78.2] 10/26/2021 Prostate cancer (HCC) [C61] 10/26/2021 Chronic bilateral low back pain with bilateral *12/08/2021 DDD (degenerative disc disease), lumbar [M51.36*12/08/2021 Type 2 diabetes mellitus without complication, *12/08/2021 Encounter Status:Closed by KATE MELCHOR on 11/20/24 [facility] Isaiah 11-14-2024 CNPN Telephone (FPWADS) -- LINO WHEELER ([id number]) 1935 M Date Time Provider Department 11/14/24 KEYLA SCHULTZ During your visit today, we recorded the following information about you: Stephen Berry LPN 11/14/2024 1:49 PM Signed Received orders from [employer]. Placed in provider's inbox for review. Route to [place] fax Allergies As of Date: 11/14/2024 Noted Allergy Reaction DILAUDID (HYDROMORPHONE (BULK)) 03/08/2017 1 - Mental Status Change PENICILLIN 01/14/2017 16 - Unknown TORADOL (KETOROLAC) 01/14/2017 9 - Itching Date Reviewed: 03/15/2024 Reviewed by: Delia Chaves LPN - Fully Assessed Reason for Visit: Orders [681] Cmt: [employer] Prescriptions as of 11/14/2024 - allopurinol (ZYLOPRIM) 300 mg tablet TAKE 1 TABLET BY MOUTH ONCE DAILY - blood sugar diagnostic test strip Use with blood glucose test 3 times daily. - tamsulosin (FLOMAX) 0.4 mg TAKE 1 CAPSULE BY MOUTH ONCE DAILY - escitalopram oxalate (LEXAPRO) 5 mg tablet Take 1 tablet by mouth once daily. - SITagliptin phosphate (JANUVIA) 100 mg tablet Take 1 tablet by mouth once daily. - rosuvastatin (CRESTOR) 10 mg tablet TAKE 1 TABLET BY MOUTH ONCE DAILY - Lancets Use with blood glucose test 3 times daily. - insulin glargine (LANTUS SOLOSTAR U-100 INSULIN) 100 unit/mL (3 mL) INJECT 21 UNITS SUBCUTANEOUSLY EVERY MORNING - amitriptyline (ELAVIL) 25 mg tablet Take 25 mg by mouth daily at bedtime. - levETIRAcetam (KEPPRA) 500 mg tablet TAKE 1 TABLET BY MOUTH TWICE DAILY - gabapentin (NEURONTIN) 100 mg capsule Take 1 capsule by mouth two times a day for 30 days. - azelastine 0.1% nasal spray Use 1 [place] in each nostril two times a day. - atenolol (TENORMIN) 50 mg tablet TAKE ONE-HALF TABLET BY MOUTH ONCE DAILY - Insulin [place], Disposable, (PEN NEEDLE) 32 gauge x 5/32 Use to inject insulin twice daily. - oxyCODONE myristate (XTAMPZA ER) 9 mg CSpT Take 9 mg by mouth twice daily. - Insulin [place], Disposable, (PEN NEEDLE) 32 gauge x 5/32 Use to inject insulin up to 8 times per day. - Blood-Glucose Meter 1 Device three times daily. Test Three times a day. - alcohol swabs Use with blood glucose test 3 times daily. Meds Comments as of 07/23/2019: Poor historian, did not bring list of medication. Unable to verify today 07/22/2019 Problem List As Of Date 11/14/2024 Noted Resolved DKA (diabetic ketoacidosis) ([facility]) [E11.10] 10/26/2021 08/04/2022 Epilepsy (HCC) [G40.909] 10/26/2021 Chronic back pain [M54.9, G89.29] 10/26/2021 Gout [M10.9] 10/26/2021 HTN (hypertension) [I10] 10/26/2021 Hyperlipidemia, mixed [E78.2] 10/26/2021 Prostate cancer (HCC) [C61] 10/26/2021 Chronic bilateral low back pain with bilateral *12/08/2021 DDD (degenerative disc disease), lumbar [M51.36*12/08/2021 Type 2 diabetes mellitus without complication, *12/08/2021 Encounter Status:Closed by STEPHEN BERRY on 11/14/24 [facility] 11-12-2024 CNPN Telephone (FPWADS) -- LINO WHEELER ([id number]) 1935 M Date Time Provider Department 11/12/24 KEYLA SCHULTZ FPWADS During your visit today, we recorded the following information about you: Ana Luisa Ash 11/12/2024 3:06 PM Signed [facility] is calling Keyla Schultz MD today with concern regarding Patient Update ([facility]). They will see Lino twice a week for 4 weeks and then once a week for 2 weeks. They would like to add on orders for OT and a Manager Reporting. Please advise. Patient has been identified by name and birthdate. Duration of symptoms: N/A [facility] [phone] Closing statement: Results or non-symptom based questions: Thank you for calling [facility], your call will be returned within the next business day. Keyla George MD 11/12/2024 5:03 PM Signed Ok to requested services. MD Andie Wooten Lisa, LPN 11/13/2024 9:12 AM Signed Left voicemail for Deidre. Allergies As of Date: 11/12/2024 Noted Allergy Reaction DILAUDID (HYDROMORPHONE (BULK)) 03/08/2017 1 - Mental Status Change PENICILLIN 01/14/2017 16 - Unknown TORADOL (KETOROLAC) 01/14/2017 9 - Itching Date Reviewed: 03/15/2024 Reviewed by: Delia Chaves LPN - Fully Assessed Reason for Visit: Patient Update [1234] Cmt: [facility] Prescriptions as of 11/13/2024 - allopurinol (ZYLOPRIM) 300 mg tablet TAKE 1 TABLET BY MOUTH ONCE DAILY - blood sugar diagnostic test strip Use with blood glucose test 3 times daily. - tamsulosin (FLOMAX) 0.4 mg TAKE 1 CAPSULE BY MOUTH ONCE DAILY - escitalopram oxalate (LEXAPRO) 5 mg tablet Take 1 tablet by mouth once daily. - SITagliptin phosphate (JANUVIA) 100 mg tablet Take 1 tablet by mouth once daily. - rosuvastatin (CRESTOR) 10 mg tablet TAKE 1 TABLET BY MOUTH ONCE DAILY - Lancets Use with blood glucose test 3 times daily. - insulin glargine (LANTUS SOLOSTAR U-100 INSULIN) 100 unit/mL (3 mL) INJECT 21 UNITS SUBCUTANEOUSLY EVERY MORNING - amitriptyline (ELAVIL) 25 mg tablet Take 25 mg by mouth daily at bedtime. - levETIRAcetam (KEPPRA) 500 mg tablet TAKE 1 TABLET BY MOUTH TWICE DAILY - gabapentin (NEURONTIN) 100 mg capsule Take 1 capsule by mouth two times a day for 30 days. - azelastine 0.1% nasal spray Use 1 [place] in each nostril two times a day. - atenolol (TENORMIN) 50 mg tablet TAKE ONE-HALF TABLET BY MOUTH ONCE DAILY - Insulin [place], Disposable, (PEN NEEDLE) 32 gauge x 5/32 Use to inject insulin twice daily. - oxyCODONE myristate (XTAMPZA ER) 9 mg CSpT Take 9 mg by mouth twice daily. - Insulin [place], Disposable, (PEN NEEDLE) 32 gauge x 5/32 Use to inject insulin up to 8 times per day. - Blood-Glucose Meter 1 Device three times daily. Test Three times a day. - alcohol swabs Use with blood glucose test 3 times daily. Meds Comments as of 07/23/2019: Poor historian, did not bring list of medication. Unable to verify today 07/22/2019 Problem List As Of Date 11/12/2024 Noted Resolved DKA (diabetic ketoacidosis) (HCC) [E11.10] 10/26/2021 08/04/2022 Epilepsy (HCC) [G40.909] 10/26/2021 Chronic back pain [M54.9, G89.29] 10/26/2021 Gout [M10.9] 10/26/2021 HTN (hypertension) [I10] 10/26/2021 Hyperlipidemia, mixed [E78.2] 10/26/2021 Prostate cancer (HCC) [C61] 10/26/2021 Chronic bilateral low back pain with bilateral *12/08/2021 DDD (degenerative disc disease), lumbar [M51.36*12/08/2021 Type 2 diabetes mellitus without complication, *12/08/2021 Encounter Status:Closed by SAULO SCHULTZ on 11/12/24 [facility] Telephone (FPWADS) -- LINO WHEELER ([id number]) 1935 M Date Time Provider Department 11/12/24 KEYLA SCHULTZ [employer] During your visit today, we recorded the following information about you: Delia Chaves LPN 11/12/2024 12:15 PM Signed Received 11/09/2024 from [facility]. Placed in provider's inbox for review. Route to [place] for scanning. Allergies As of Date: 11/12/2024 Noted Allergy Reaction DILAUDID (HYDROMORPHONE (BULK)) 03/08/2017 1 - Mental Status Change PENICILLIN 01/14/2017 16 - Unknown TORADOL (KETOROLAC) 01/14/2017 9 - Itching Date Reviewed: 03/15/2024 Reviewed by: Delia Chaves LPN - Fully Assessed Reason for Visit: Received Outside Medical Records [[id number]] Cmt: [facility] Discharge summary 11/09/2024 Prescriptions as of 11/12/2024 - allopurinol (ZYLOPRIM) 300 mg tablet TAKE 1 TABLET BY MOUTH ONCE DAILY - blood sugar diagnostic test strip Use with blood glucose test 3 times daily. - tamsulosin (FLOMAX) 0.4 mg TAKE 1 CAPSULE BY MOUTH ONCE DAILY - escitalopram oxalate (LEXAPRO) 5 mg tablet Take 1 tablet by mouth once daily. - SITagliptin phosphate (JANUVIA) 100 mg tablet Take 1 tablet by mouth once daily. - rosuvastatin (CRESTOR) 10 mg tablet TAKE 1 TABLET BY MOUTH ONCE DAILY - Lancets Use with blood glucose test 3 times daily. - insulin glargine (LANTUS SOLOSTAR U-100 INSULIN) 100 unit/mL (3 mL) INJECT 21 UNITS SUBCUTANEOUSLY EVERY MORNING - amitriptyline (ELAVIL) 25 mg tablet Take 25 mg by mouth daily at bedtime. - levETIRAcetam (KEPPRA) 500 mg tablet TAKE 1 TABLET BY MOUTH TWICE DAILY - gabapentin (NEURONTIN) 100 mg capsule Take 1 capsule by mouth two times a day for 30 days. - azelastine 0.1% nasal spray Use 1 [place] in each nostril two times a day. - atenolol (TENORMIN) 50 mg tablet TAKE ONE-HALF TABLET BY MOUTH ONCE DAILY - Insulin [place], Disposable, (PEN NEEDLE) 32 gauge x 5/32 Use to inject insulin twice daily. - oxyCODONE myristate (XTAMPZA ER) 9 mg CSpT Take 9 mg by mouth twice daily. - Insulin [place], Disposable, (PEN NEEDLE) 32 gauge x 5/32 Use to inject insulin up to 8 times per day. - Blood-Glucose Meter 1 Device three times daily. Test Three times a day. - alcohol swabs Use with blood glucose test 3 times daily. Meds Comments as of 07/23/2019: Poor historian, did not bring list of medication. Unable to verify today 07/22/2019 Problem List As Of Date 11/12/2024 Noted Resolved DKA (diabetic ketoacidosis) (HCC) [E11.10] 10/26/2021 08/04/2022 Epilepsy (HCC) [G40.909] 10/26/2021 Chronic back pain [M54.9, G89.29] 10/26/2021 Gout [M10.9] 10/26/2021 HTN (hypertension) [I10] 10/26/2021 Hyperlipidemia, mixed [E78.2] 10/26/2021 Prostate cancer (HCC) [C61] 10/26/2021 Chronic bilateral low back pain with bilateral *12/08/2021 DDD (degenerative disc disease), lumbar [M51.36*12/08/2021 Type 2 diabetes mellitus without complication, *12/08/2021 Encounter Status:Closed by DELIA CHAVES on 11/12/24 [facility] Telephone (FPWADS) -- LINO WHEELER Paulette ([id number]) 1935 [facility] Date Time Provider Department 11/12/24 KEYLA CSHULTZ FPWADS During your visit today, we recorded the following information about you: Akanksha Morales 11/12/2024 2:01 PM Signed [facility] is calling Keyla Schultz MD today with concern regarding Home Care (Physical therapy/Social Work) Updated physical therapy plan of care Twice a week for 4 weeks Once a week for 2 weeks. Also asking for a social work consult to help with services, especially transportation. Patient has a pain med appointment and is concerned about how he'll get there. He is out of pain meds. Patient has been identified by name and birthdate. Duration of symptoms: N/A Person calling: Dennise Nieves [facility] Call: [phone] Ok to leave message secure VM Was an appointment scheduled: No Closing statement: Akanksha Gregory Keyla Gutierrez MD 11/12/2024 5:21 PM Signed [place] social service consult MD Andie Wooten Lisa, LPN 11/13/2024 9:14 AM Signed Addressed in previous encounter Allergies As of Date: 11/12/2024 Noted Allergy Reaction DILAUDID (HYDROMORPHONE (BULK)) 03/08/2017 1 - Mental Status Change PENICILLIN 01/14/2017 16 - Unknown TORADOL (KETOROLAC) 01/14/2017 9 - Itching Date Reviewed: 03/15/2024 Reviewed by: Delia Chaves LPN - Fully Assessed Reason for Visit: Home Care [4073] Cmt: Physical therapy Social Work Prescriptions as of 11/13/2024 - allopurinol (ZYLOPRIM) 300 mg tablet TAKE 1 TABLET BY MOUTH ONCE DAILY - blood sugar diagnostic test strip Use with blood glucose test 3 times daily. - tamsulosin (FLOMAX) 0.4 mg TAKE 1 CAPSULE BY MOUTH ONCE DAILY - escitalopram oxalate (LEXAPRO) 5 mg tablet Take 1 tablet by mouth once daily. - SITagliptin phosphate (JANUVIA) 100 mg tablet Take 1 tablet by mouth once daily. - rosuvastatin (CRESTOR) 10 mg tablet TAKE 1 TABLET BY MOUTH ONCE DAILY - Lancets Use with blood glucose test 3 times daily. - insulin glargine (LANTUS SOLOSTAR U-100 INSULIN) 100 unit/mL (3 mL) INJECT 21 UNITS SUBCUTANEOUSLY EVERY MORNING - amitriptyline (ELAVIL) 25 mg tablet Take 25 mg by mouth daily at bedtime. - levETIRAcetam (KEPPRA) 500 mg tablet TAKE 1 TABLET BY MOUTH TWICE DAILY - gabapentin (NEURONTIN) 100 mg capsule Take 1 capsule by mouth two times a day for 30 days. - azelastine 0.1% nasal spray Use 1 [place] in each nostril two times a day. - atenolol (TENORMIN) 50 mg tablet TAKE ONE-HALF TABLET BY MOUTH ONCE DAILY - Insulin [place], Disposable, (PEN NEEDLE) 32 gauge x 5/32 Use to inject insulin twice daily. - oxyCODONE myristate (XTAMPZA ER) 9 mg CSpT Take 9 mg by mouth twice daily. - Insulin [place], Disposable, (PEN NEEDLE) 32 gauge x 5/32 Use to inject insulin up to 8 times per day. - Blood-Glucose Meter 1 Device three times daily. Test Three times a day. - alcohol swabs Use with blood glucose test 3 times daily. Meds Comments as of 07/23/2019: Poor historian, did not bring list of medication. Unable to verify today 07/22/2019 Problem List As Of Date 11/12/2024 Noted Resolved DKA (diabetic ketoacidosis) (HCC) [E11.10] 10/26/2021 08/04/2022 Epilepsy (HCC) [G40.909] 10/26/2021 Chronic back pain [M54.9, G89.29] 10/26/2021 Gout [M10.9] 10/26/2021 HTN (hypertension) [I10] 10/26/2021 Hyperlipidemia, mixed [E78.2] 10/26/2021 Prostate cancer (HCC) [C61] 10/26/2021 Chronic bilateral low back pain with bilateral *12/08/2021 DDD (degenerative disc disease), lumbar [M51.36*12/08/2021 Type 2 diabetes mellitus without complication, *12/08/2021 Encounter Status:Closed by DELIA CHAVES on 11/13/24 [facility] Telephone (deltamethodWADS) -- LINO WHEELER ([id number]) 1935 M Date Time Provider Department 11/12/24 KEYLA SCHULTZ deltamethodMARK During your visit today, we recorded the following information about you: Ana Luisa Ash 11/12/2024 3:33 PM Signed Deidre with [facility] is calling for a nurse to please call to discuss medications. Please call her at [phone] Stephen Berry LPN 11/12/2024 4:41 PM Signed Called and left VM for Deidre on secure line requesting call back to discuss. Stephen Berry LPN 11/20/2024 4:00 PM Signed Called and left VM for Deidre on secure line with [facility]. Advised that she may fax the office as well with any questions, provided fax number. Allergies As of Date: 11/12/2024 Noted Allergy Reaction DILAUDID (HYDROMORPHONE (BULK)) 03/08/2017 1 - Mental Status Change PENICILLIN 01/14/2017 16 - Unknown TORADOL (KETOROLAC) 01/14/2017 9 - Itching Date Reviewed: 03/15/2024 Reviewed by: Delia Chaves LPN - Fully Assessed Reason for Visit: Medication question [Other] Prescriptions as of 11/20/2024 - allopurinol (ZYLOPRIM) 300 mg tablet TAKE 1 TABLET BY MOUTH ONCE DAILY - blood sugar diagnostic test strip Use with blood glucose test 3 times daily. - tamsulosin (FLOMAX) 0.4 mg TAKE 1 CAPSULE BY MOUTH ONCE DAILY - escitalopram oxalate (LEXAPRO) 5 mg tablet Take 1 tablet by mouth once daily. - SITagliptin phosphate (JANUVIA) 100 mg tablet Take 1 tablet by mouth once daily. - rosuvastatin (CRESTOR) 10 mg tablet TAKE 1 TABLET BY MOUTH ONCE DAILY - Lancets Use with blood glucose test 3 times daily. - insulin glargine (LANTUS SOLOSTAR U-100 INSULIN) 100 unit/mL (3 mL) INJECT 21 UNITS SUBCUTANEOUSLY EVERY MORNING - amitriptyline (ELAVIL) 25 mg tablet Take 25 mg by mouth daily at bedtime. - levETIRAcetam (KEPPRA) 500 mg tablet TAKE 1 TABLET BY MOUTH TWICE DAILY - gabapentin (NEURONTIN) 100 mg capsule Take 1 capsule by mouth two times a day for 30 days. - azelastine 0.1% nasal spray Use 1 [place] in each nostril two times a day. - atenolol (TENORMIN) 50 mg tablet TAKE ONE-HALF TABLET BY MOUTH ONCE DAILY - Insulin [place], Disposable, (PEN NEEDLE) 32 gauge x 5/32 Use to inject insulin twice daily. - oxyCODONE myristate (XTAMPZA ER) 9 mg CSpT Take 9 mg by mouth twice daily. - Insulin [place], Disposable, (PEN NEEDLE) 32 gauge x 5/32 Use to inject insulin up to 8 times per day. - Blood-Glucose Meter 1 Device three times daily. Test Three times a day. - alcohol swabs Use with blood glucose test 3 times daily. Meds Comments as of 07/23/2019: Poor historian, did not bring list of medication. Unable to verify today 07/22/2019 Problem List As Of Date 11/12/2024 Noted Resolved DKA (diabetic ketoacidosis) (HCC) [E11.10] 10/26/2021 08/04/2022 Epilepsy (HCC) [G40.909] 10/26/2021 Chronic back pain [M54.9, G89.29] 10/26/2021 Gout [M10.9] 10/26/2021 HTN (hypertension) [I10] 10/26/2021 Hyperlipidemia, mixed [E78.2] 10/26/2021 Prostate cancer (HCC) [C61] 10/26/2021 Chronic bilateral low back pain with bilateral *12/08/2021 DDD (degenerative disc disease), lumbar [M51.36*12/08/2021 Type 2 diabetes mellitus without complication, *12/08/2021 Encounter Status:Closed by STEPHEN BERRY on 11/12/24 Normal [facility] Anion gap in Serum or Plasma Ordered By: Lu Coreas on 11-09-2024 Anion gap [Moles/Vol] 9 mmol/L - [facility] BUN/creatinine ratioOrdered By: Lu Coreas on 11-09-2024 Urea nitrogen/Creatinine [Mass ratio] 25.0 mg/mg High 05-06 [facility] Basic Metabolic Profile (BMP )on 11-09-2024 BUN/CRE 25.0 RATIO High 05-06 [facility] Comment on above: Performed By: #### L 100.0100, L500.2500 #### [facility] [address] [place], [address] Calcium [Mass/Vol] 8.8 mg/dL Normal 7.6-11.0 [facility] Comment on above: Performed By: #### L 100.0100, L500.2500 #### [facility] [address] [place], [address] Chloride [Moles/Vol] 103 mmol/L Normal 98-108 [facility] Comment on above: Performed By: #### L 100.0100, L500.2500 #### [facility] [address] [place], [address] CO2 [Moles/Vol] 23.9 mmol/L Normal 21.0-32.0 [facility] Comment on above: Performed By: #### L 100.0100, L500.2500 #### [facility] [address] [place], [address] Creatinine [Mass/Vol] 0.75 mg/dL Normal 0.70-1.20 [facility] Comment on above: Performed By: #### L 100.0100, L500.2500 #### [facility] [address] [place], [address] ECRCL 67.66 ml/min Normal 50-250 [facility] Comment on above: Performed By: #### L 100.0100, L500.2500 #### [facility] [address] [place], [address] GAP 9 Normal 5-15 [facility] Comment on above: Performed By: #### L 100.0100, L500.2500 #### [facility] [address] [place], [address] GFR/1.73 sq M.predicted among non-blacks MDRD (S/P/Bld) [Vol rate/Area] 86 mL/min/{1.73_m2} Normal >60 [facility] Comment on above: Result Comment: mL/m in/1.73m2 CKD-EPI Creatinine Equation (2020) Performed By: #### L 100.0100, L500.2500 #### [facility] [address] [place], [address] Glucose [Mass/Vol] 130 mg/dL High 70-99 [facility] Comment on above: Performed By: #### L 100.0100, L500.2500 #### [facility] [address] [place], [address] Potassium [Moles/Vol] 4.1 mmol/L Normal 3.3-5.1 [facility] Comment on above: Performed By: #### L 100.0100, L500.2500 #### [facility] [address] [place], [address] Sodium [Moles/Vol] 136 mmol/L Normal 133-145 [facility] Comment on above: Performed By: #### L 100.0100, L500.2500 #### [facility] [address] [place], [address] Urea nitrogen [Mass/Vol] 19 mg/dL Normal 4-19 [facility] Comment on above: Performed By: #### L 100.0100, L500.2500 #### [facility] [address] [place], [address] Bedside Glucoseon 11-09-2024 FINGERSTICK GLU 156 mg/dL High 74-106 [facility] Comment on above: Result Comment: TYRONE GEMENT OF PATIENT CARE PER NURSING PROTOCOL Performed By: #### L 501.080 #### [facility] [address] [place], [address] FINGERSTICK GLU 120 mg/dL High 74-106 [facility] Comment on above: Result Comment: TYRONE GEMENT OF PATIENT CARE PER NURSING PROTOCOL Performed By: #### L 100.0100, L500.2500 #### [facility] [address] [place], [address] CBC-Complete Blood Cnt No Di ffon 11-09-2024 Erythrocyte distribution width (RBC) [Ratio] 14.1 % Normal 11.6-14.6 [facility] Comment on above: Performed By: #### L 100.0100, L500.2500 #### [facility] [address] [place], [address] Hematocrit (Bld) [Volume fraction] 36.8 % Low 40-54 [facility] Comment on above: Performed By: #### L 100.0100, L500.2500 #### [facility] [address] [place], [address] Hemoglobin (Bld) [Mass/Vol] 11.7 g/dL Low 13.0-16.5 [facility] Comment on above: Performed By: #### L 100.0100, L500.2500 #### [facility] [address] [place], [address] MCH (RBC) [Entitic mass] 30.2 pg Normal 27.0-32.0 [facility] Comment on above: Performed By: #### L 100.0100, L500.2500 #### [facility] [address] [place], [address] MCHC (RBC) [Mass/Vol] 31.8 g/dL Low 32-36 [facility] Comment on above: Performed By: #### L 100.0100, L500.2500 #### [facility] [address] [place], [address] MCV (RBC) [Entitic vol] 94.8 fL High 80-94 [facility] Comment on above: Performed By: #### L 100.0100, L500.2500 #### [facility] [address] [place], [address] Platelet mean volume (Bld) [Entitic vol] 10.8 fL Normal 6.2-12.0 [facility] Comment on above: Performed By: #### L 100.0100, L500.2500 #### [facility] [address] [place], [address] Platelets (Bld) [#/Vol] 241 10*3/uL Normal 150-450 [facility] Comment on above: Performed By: #### L 100.0100, L500.2500 #### [facility] [address] [place], [address] RBC (Bld) [#/Vol] 3.88 10*6/uL Low 4.6-6.2 [facility] Comment on above: Performed By: #### L 100.0100, L500.2500 #### [facility] [address] [place], [address] RDW SD 49.1 fl High 35.1-43.9 [facility] Comment on above: Performed By: #### L 100.0100, L500.2500 #### [facility] [address] [place], [address] WBC (Bld) [#/Vol] 6.0 10*3/uL Normal 4.4-11.0 [facility] Comment on above: Performed By: #### L 100.0100, L500.2500 #### [facility] [address] [place], [address] Carbon dioxide, total [Moles /volume] in Central venous bloodOrdered By: Lu Coreas on 11-09-2024 CO2 [Moles/Vol] 23.9 mmol/L 21.0-32.0 [facility] Chloride assayOrdered By: Virgil Coreas on 11-09-2024 Chloride [Moles/Vol] 103 mmol/L 98-108 [facility] Erythrocyte distribution wid th ratioOrdered By: Lu Coreas on 11-09-2024 Erythrocyte distribution width (RBC) [Ratio] 14.1 % 11.6-14.6 [facility] Erythrocyte distribution wid th standard deviationOrdered By: Lu Coreas on 11-09-2024 Erythrocyte distribution width (RBC) [Ratio] 49.1 fl High 35.1-43.9 [facility] Glomerular filtration rate ( GFR) estimation/1.73 sq m using serum, plasma, or whole bOrdered By: Lu Coreas on 11-09-2024 GFR/1.73 sq M.predicted among non-blacks MDRD (S/P/Bld) [Vol rate/Area] 86 mL/min/{1.73_m2} >60 [facility] Comment on above: mL/min/1.73m2 CKD-EP I Creatinine Equation (2020) [facility] deOrdered By: Lu Coreas on 11-09-2024 Glucose [Mass/Vol] 156 mg/dL High 74-106 [facility] Comment on above: MANAGEMENT OF PATIEN T CARE PER NURSING PROTOCOL Hematocrit Auto (Bld) [Volum e fraction]Ordered By: Lu Coreas on 11-09-2024 Hematocrit (Bld) [Volume fraction] 36.8 % Low 40-54 [facility] Hemoglobin measurementOrdere d By: Lu Coreas on 11-09-2024 Hemoglobin (Bld) [Mass/Vol] 11.7 g/dL Low 13.0-16.5 [facility] MCV (mean corpuscular volume ) determinationOrdered By: Lu Coreas on 11-09-2024 MCV (RBC) [Entitic vol] 94.8 fL High 80-94 [facility] Mean corpuscular hemoglobin (MCH) determinationOrdered By: Lu Coreas on 11-09-2024 MCH (RBC) [Entitic mass] 30.2 pg 27.0-32.0 [facility] Mean corpuscular hemoglobin concentration (MCHC) determinationOrdered By: Lu Coreas on 11-09-2024 MCHC (RBC) [Mass/Vol] 31.8 g/dL Low 32-36 [facility] Mean platelet volume determi nationOrdered By: Lu Coreas on 11-09-2024 Platelet mean volume (Bld) [Entitic vol] 10.8 fL 6.2-12.0 [facility] Platelet countOrdered By: Virgil Coreas on 11-09-2024 Platelets (Bld) [#/Vol] 241 10*3/uL 150-450 [facility] Potassium measurement (mass/ volume)Ordered By: Lu Coreas on 11-09-2024 Potassium (Unsp spec) [Mass/Vol] 4.1 mmol/L 3.3-5.1 [facility] RBC Auto (Bld) [#/Vol]Ordere d By: Lu Coreas on 11-09-2024 RBC (Bld) [#/Vol] 3.88 10*6/uL Low 4.6-6.2 [facility] Serum creatinine measurement (mass/volume)Ordered By: Lu Coreas on 11-09-2024 Creatinine [Mass/Vol] 0.75 mg/dL 0.70-1.20 [facility] Serum glucose measurement (m ass/volume)Ordered By: Lu Coreas on 11-09-2024 Glucose [Mass/Vol] 130 mg/dL High 70-99 [facility] Serum or plasma calcium jose urement (mass/volume)Ordered By: Lu Coreas on 11-09-2024 Calcium [Mass/Vol] 8.8 mg/dL 7.6-11.0 [facility] Serum or plasma urea nitroge n measurement (mass/volume)Ordered By: Lu Coreas on 11-09-2024 Urea nitrogen [Mass/Vol] 19 mg/dL 4-19 [facility] Sodium levelOrdered By: Maria Luisa Coreas on 11-09-2024 Sodium [Moles/Vol] 136 mmol/L 133-145 [facility] White blood cell (WBC) count Ordered By: Lu Coreas on 11-09-2024 WBC (Bld) [#/Vol] 6.0 10*3/uL 4.4-11.0 [facility] Bedside Glucoseon 11-08-2024 FINGERSTICK GLU 143 mg/dL High [address] [facility] Comment on above: Result Comment: TYRONE GEMENT OF PATIENT CARE PER NURSING PROTOCOL Performed By: #### L 501.080 #### [facility] [address] [facility] [address] FINGERSTICK GLU 126 mg/dL High [address] [place] [address] Comment on above: Result Comment: TYRONE GEMENT OF PATIENT CARE PER NURSING PROTOCOL Performed By: #### L 100.0100, L500.2500 #### [facility] [address] [facility] [address] FINGERSTICK GLU 122 mg/dL High [address] [place] [address] Comment on above: Result Comment: TYRONE GEMENT OF PATIENT CARE PER NURSING PROTOCOL Performed By: #### L 100.0100, L500.2500 #### [facility] [address] [place], [address] FINGERSTICK GLU 116 mg/dL High [facility]106 [facility] Comment on above: Result Comment: TYRONE GEMENT OF PATIENT CARE PER NURSING PROTOCOL Performed By: #### L 501.080 #### [facility] [address] [place], [address] Bedside Glucoseon 11-07-2024 FINGERSTICK GLU 113 mg/dL High 74-106 [facility] Comment on above: Result Comment: TYRONE GEMENT OF PATIENT CARE PER NURSING PROTOCOL Performed By: #### L 501.080 #### [facility] [address] [facility] [address] FINGERSTICK GLU 168 mg/dL High 74-106 [facility] Comment on above: Result Comment: TYRONE GEMENT OF PATIENT CARE PER NURSING PROTOCOL Performed By: #### L 501.080 #### [facility] [address] [place], [address] FINGERSTICK GLU 158 mg/dL High 74-106 [facility] Comment on above: Result Comment: TYRONE GEMENT OF PATIENT CARE PER NURSING PROTOCOL Performed By: #### L 501.080 ####[facility] [address] [place] [id number] FINGERSTICK GLU 131 mg/dL High -106 [facility] Comment on above: Result Comment: TYRONE GEMENT OF PATIENT CARE PER NURSING PROTOCOL Performed By: #### L 100.0100, L500.2500 #### [facility] [address] [facility] [address] Absolute lymphocyte countOrd ered By: Mindi Nelson on 11-06-2024 Lymphocytes Auto (Unsp spec) [#/Vol] 1.58 10*3/uL 0.83-4.51 [facility] Absolute neutrophil countOrd ered By: Mindi Nelson on 11-06-2024 Neutrophils (Bld) [#/Vol] 2.8 10*3/uL 2.0-7.7 [facility] Automated lymphocyte count a s percentage of total leukocytesOrdered By: Mindi Neslon on 11-06-2024 Lymphocytes/100 WBC Auto (Unsp spec) 30.2 % 19-41 [facility] Basic Metabolic Profile (BMP )on 11-06-2024 BUN/CRE 22.4 RATIO High 10-20 [facility] Comment on above: Performed By: #### L 501.080 #### [facility] [address] [place], [address] Calcium [Mass/Vol] 8.3 mg/dL Normal 7.6-11.0 [facility] Comment on above: Performed By: #### L 501.080 #### [facility] [address] [place], [address] Chloride [Moles/Vol] 104 mmol/L Normal 98-108 [facility] Comment on above: Performed By: #### L 501.080 #### [facility] [address] [place], [address] CO2 [Moles/Vol] 23.5 mmol/L Normal 21.0-32.0 [facility] Comment on above: Performed By: #### L 501.080 #### [facility] [address] [place], [address] Creatinine [Mass/Vol] 0.75 mg/dL Normal 0.70-1.20 [facility] Comment on above: Performed By: #### L 501.080 #### [facility] [address] [place], [address] ECRCL 67.66 ml/min Normal 50-250 [facility] Comment on above: Performed By: #### L 501.080 #### [facility] [address] [place], [address] GAP 10 Normal 5-15 [facility] Comment on above: Performed By: #### L 501.080 #### [facility] [address] [place], [address] GFR/1.73 sq M.predicted among non-blacks MDRD (S/P/Bld) [Vol rate/Area] 86 mL/min/{1.73_m2} Normal >60 [facility] Comment on above: Result Comment: mL/m in/1.73m2 CKD-EPI Creatinine Equation (2020) Performed By: #### L 501.080 #### [facility] [address] [place], [address] Glucose [Mass/Vol] 135 mg/dL High 70-99 [facility] Comment on above: Performed By: #### L 501.080 #### [facility] [address] [place], [address] Potassium [Moles/Vol] 4.2 mmol/L Normal 3.3-5.1 [facility] Comment on above: Performed By: #### L 501.080 #### [facility] [address] [place], [address] Sodium [Moles/Vol] 137 mmol/L Normal 133-145 [facility] Comment on above: Performed By: #### L 501.080 #### [facility] [address] [place], [address] Urea nitrogen [Mass/Vol] 17 mg/dL Normal 4-19 [facility] Comment on above: Performed By: #### L 501.080 #### [facility] [address] [place], [address] Basophil percentageOrdered B y: Mindi Nelson on 11-06-2024 Basophils/100 WBC (Bld) 0.8 % 0-1 [facility] Bedside Glucoseon 11-06-2024 FINGERSTICK GLU 134 mg/dL High 74-106 [facility] Comment on above: Result Comment: TYRONE GEMENT OF PATIENT CARE PER NURSING PROTOCOL Performed By: #### L 501.080 #### [facility] [address] [place], [address] FINGERSTICK GLU 150 mg/dL High 74-106 [facility] Comment on above: Result Comment: TYRONE GEMENT OF PATIENT CARE PER NURSING PROTOCOL Performed By: #### L 501.080 ####[facility] [address] [place], [address] FINGERSTICK GLU 137 mg/dL High 74-106 [facility] Comment on above: Result Comment: TYRONE GEMENT OF PATIENT CARE PER NURSING PROTOCOL Performed By: #### L 501.080 #### [facility] [address] [place], [address] FINGERSTICK GLU 132 mg/dL High 74-106 [facility] Comment on above: Result Comment: TYRONE GEMENT OF PATIENT CARE PER NURSING PROTOCOL Performed By: #### L 501.080 #### [facility] [address] [place], [address] CBC W/Diff, Automatedon 10-17 Absolute Lymph 1.58 X10 3/uL Normal 0.83-4.51 [facility] Comment on above: Performed By: #### L 501.080 #### [facility] [address] [place], [address] Absolute Neut 2.8 X10 3/uL Normal 2.0-7.7 [facility] Comment on above: Performed By: #### L 501.080 #### [facility] [address] [place], [address] Basophils/100 WBC (Bld) 0.8 % Normal 0-1 [facility] Comment on above: Performed By: #### L 501.080 #### [facility] [address] [place], [address] Eosinophils/100 WBC (Bld) 5.9 % High 0-5 [facility] Comment on above: Performed By: #### L 501.080 #### [facility] [address] [place], [address] Erythrocyte distribution width (RBC) [Ratio] 14.1 % Normal 11.6-14.6 [facility] Comment on above: Performed By: #### L 501.080 #### [facility] [address] [place], [address] Hematocrit (Bld) [Volume fraction] 34.5 % Low 40-54 [facility] Comment on above: Performed By: #### L 501.080 #### [facility] [address] [place], [address] Hemoglobin (Bld) [Mass/Vol] 11.3 g/dL Low 13.0-16.5 [facility] Comment on above: Performed By: #### L 501.080 #### [facility] [address] [place] [place], [address] IG% 0.400 Normal 0.0-0.9 [facility] Comment on above: Result Comment: IG% - Immature Granulocytes (promyelocytes, myelocytes and metamyelocytes) > 1% indicates that a LEFT SHIFT is Present. Performed By: #### L 501.080 #### [facility] [address] [facility] [place], [address] Lymphocytes/100 WBC (Bld) 30.2 % Normal 19-41 [facility] Comment on above: Performed By: #### L 501.080 #### [facility] [address] [facility] [address] [place], [address] MCH (RBC) [Entitic mass] 30.9 pg Normal 27.0-32.0 [facility] Comment on above: Performed By: #### L 501.080 #### [facility] [address] [address] [place], [address] MCHC (RBC) [Mass/Vol] 32.8 g/dL Normal 32-36 [facility] Comment on above: Performed By: #### L 501.080 #### [facility] [address] [place], [address] MCV (RBC) [Entitic vol] 94.3 fL High 80-94 [facility] Comment on above: Performed By: #### L 501.080 #### [facility] [address] [place], [address] Monocytes/100 WBC (Bld) 9.5 % Normal 0-10 [facility] Comment on above: Performed By: #### L 501.080 #### [facility] [address] [place], [address] Neutrophils/100 WBC (Bld) 53.2 % Normal 47-70 [facility] Comment on above: Performed By: #### L 501.080 #### [facility] [address] [place], [address] Nucleated RBC (Bld) [#/Vol] 0 10*3/uL Normal 0-5 [facility] Comment on above: Performed By: #### L 501.080 #### [facility] [address] [place], [address] Platelet mean volume (Bld) [Entitic vol] 9.9 fL Normal 6.2-12.0 [facility] Comment on above: Performed By: #### L 501.080 #### [facility] [address] [place], [address] Platelets (Bld) [#/Vol] 222 10*3/uL Normal 150-450 [facility] Comment on above: Performed By: #### L 501.080 #### [facility] [address] [place], [address] RBC (Bld) [#/Vol] 3.66 10*6/uL Low 4.6-6.2 [facility] Comment on above: Performed By: #### L 501.080 #### [facility] [address] [place], [address] RDW SD 48.7 fl High 35.1-43.9 [facility] Comment on above: Performed By: #### L 501.080 #### [facility] [address] [place], [address] WBC (Bld) [#/Vol] 5.2 10*3/uL Normal 4.4-11.0 [facility] Comment on above: Performed By: #### L 501.080 #### [facility] [address] [place], [address] Eosinophil percentageOrdered By: Mindi Nelson on 11-06-2024 Eosinophils/100 WBC (Bld) 5.9 % High 0-5 [facility] Immature granulocytes/100 WB C Auto (Bld)Ordered By: Mindi Nelson on 11-06-2024 Immature granulocytes/100 WBC (Bld) 0.400 % 0.0-0.9 [facility] Comment on above: IG% - Immature Granu locytes (promyelocytes, myelocytes and metamyelocytes) > 1% indicates that a LEFT SHIFT is Present. Monocyte percentageOrdered B y: Mindi Nelson on 11-06-2024 Monocytes/100 WBC (Bld) 9.5 % 0-10 [facility] Neutrophil percentageOrdered By: Mindi Stinsonracheal on 11-06-2024 Neutrophils/100 WBC (Bld) 53.2 % 47-70 [facility] Nucleated red blood cell per centageOrdered By: Mindijose enrique Nelson on 11-06-2024 Nucleated RBC/100 WBC (Bld) [Ratio] 0 % 0-5 [facility] Basic Metabolic Profile (BMP )on 11-05-2024 BUN/CRE 19.9 RATIO Normal 10-20 [facility] Comment on above: Performed By: #### L 500.2500, L100.0100 #### [facility] [address] [place], [address] Calcium [Mass/Vol] 8.8 mg/dL Normal 7.6-11.0 [facility] Comment on above: Performed By: #### L 500.2500, L100.0100 #### [facility] [address] [place], [address] Chloride [Moles/Vol] 105 mmol/L Normal 98-108 [facility] Comment on above: Performed By: #### L 500.2500, L100.0100 #### [facility] [address] [place], [address] CO2 [Moles/Vol] 24.9 mmol/L Normal 21.0-32.0 [facility] Comment on above: Performed By: #### L 500.2500, L100.0100 #### [facility] [address] [place], [address] Creatinine [Mass/Vol] 0.87 mg/dL Normal 0.70-1.20 [facility] Comment on above: Performed By: #### L 500.2500, L100.0100 #### [facility] [address] [place], [address] ECRCL 62.22 ml/min Normal 50-250 [facility] Comment on above: Performed By: #### L 500.2500, L100.0100 #### [facility] [address] [place], [address] GAP 8 Normal 5-15 [facility] Comment on above: Performed By: #### L 500.2500, L100.0100 #### [facility] [address] [place], [address] GFR/1.73 sq M.predicted among non-blacks MDRD (S/P/Bld) [Vol rate/Area] 83 mL/min/{1.73_m2} Normal >60 [facility] Comment on above: Result Comment: mL/m in/1.73m2 CKD-EPI Creatinine Equation (2020) Performed By: #### L 500.2500, L100.0100 #### [facility] [address] [place], [address] Glucose [Mass/Vol] 135 mg/dL High 70-99 [facility] Comment on above: Performed By: #### L 500.2500, L100.0100 #### [facility] [address] [place], [address] Potassium [Moles/Vol] 4.9 mmol/L Normal 3.3-5.1 [facility] Comment on above: Result Comment: Hemo lysis present, Results??could be affected. ?? Performed By: #### L 500.2500, L100.0100 #### [facility] [address] [place], [address] Sodium [Moles/Vol] 138 mmol/L Normal 133-145 [facility] Comment on above: Performed By: #### L 500.2500, L100.0100 #### [facility] [address] [place], [address] Urea nitrogen [Mass/Vol] 17 mg/dL Normal 4-19 [facility] Comment on above: Performed By: #### L 500.2500, L100.0100 #### [facility] [address] [place], [address] Bedside Glucoseon 11-05-2024 FINGERSTICK GLU 155 mg/dL High 74-106 [facility] Comment on above: Result Comment: TYRONE GEMENT OF PATIENT CARE PER NURSING PROTOCOL Performed By: #### L 501.080 #### [facility] [address] [place], [address] FINGERSTICK GLU 142 mg/dL High 74-106 [facility] Comment on above: Result Comment: TYRONE GEMENT OF PATIENT CARE PER NURSING PROTOCOL Performed By: #### L 100.0100, L500.2500 #### [facility] [address] [place], [address] FINGERSTICK GLU 130 mg/dL High 74-106 [facility] Comment on above: Result Comment: TYRONE GEMENT OF PATIENT CARE PER NURSING PROTOCOL Performed By: #### L 100.0100, L500.2500 #### [facility] [address] [place], [address] FINGERSTICK GLU 128 mg/dL High 74-106 [facility] Comment on above: Result Comment: TYRONE OVERTON OF PATIENT CARE PER NURSING PROTOCOL Performed By: #### L 501.080 #### [facility] [address] [place], [address] CBC W/Diff, Automatedon 04- Absolute Lymph 1.46 X10 3/uL Normal 0.83-4.51 [facility] Comment on above: Performed By: #### L 500.2500, L100.0100 #### [facility] [address] [place], [address] Absolute Neut 3.5 X10 3/uL Normal 2.0-7.7 [facility] Comment on above: Performed By: #### L 500.2500, L100.0100 #### [facility] [address] [place], [address] Basophils/100 WBC (Bld) 0.7 % Normal 0-1 [facility] Comment on above: Performed By: #### L 500.2500, L100.0100 #### [facility] [address] [place], [address] Eosinophils/100 WBC (Bld) 5.9 % High 0-5 [facility] Comment on above: Performed By: #### L 500.2500, L100.0100 #### [facility] [address] [place], [address] Erythrocyte distribution width (RBC) [Ratio] 14.2 % Normal 11.6-14.6 [facility] Comment on above: Performed By: #### L 500.2500, L100.0100 #### [facility] [address] [place], [address] Hematocrit (Bld) [Volume fraction] 35.0 % Low 40-54 [facility] Comment on above: Performed By: #### L 500.2500, L100.0100 #### [facility] [address] [place], [address] Hemoglobin (Bld) [Mass/Vol] 11.4 g/dL Low 13.0-16.5 [facility] Comment on above: Performed By: #### L 500.2500, L100.0100 #### [facility] [address] [place], [address] IG% 0.200 Normal 0.0-0.9 [facility] Comment on above: Result Comment: IG% - Immature Granulocytes (promyelocytes, myelocytes and metamyelocytes) > 1% indicates that a LEFT SHIFT is Present. Performed By: #### L 500.2500, L100.0100 #### [facility] [address] [place], [address] Lymphocytes/100 WBC (Bld) 25.1 % Normal 19-41 [facility] Comment on above: Performed By: #### L 500.2500, L100.0100 #### [facility] [address] [place], [address] MCH (RBC) [Entitic mass] 31.2 pg Normal 27.0-32.0 [facility] Comment on above: Performed By: #### L 500.2500, L100.0100 #### [facility] [address] [place], [address] MCHC (RBC) [Mass/Vol] 32.6 g/dL Normal 32-36 [facility] Comment on above: Performed By: #### L 500.2500, L100.0100 #### [facility] [address] [place], [address] MCV (RBC) [Entitic vol] 95.9 fL High 80-94 [facility] Comment on above: Performed By: #### L 500.2500, L100.0100 #### [facility] [address] [place], [address] Monocytes/100 WBC (Bld) 7.2 % Normal 0-10 [facility] Comment on above: Performed By: #### L 500.2500, L100.0100 #### [facility] [address] [place], [address] Neutrophils/100 WBC (Bld) 60.9 % Normal 47-70 [facility] Comment on above: Performed By: #### L 500.2500, L100.0100 #### [facility] [address] [place], [address] Nucleated RBC (Bld) [#/Vol] 0 10*3/uL Normal 0-5 [facility] Comment on above: Performed By: #### L 500.2500, L100.0100 #### [facility] [address] [place], [address] Platelet mean volume (Bld) [Entitic vol] 9.9 fL Normal 6.2-12.0 [facility] Comment on above: Performed By: #### L 500.2500, L100.0100 #### [facility] [address] [place], [address] Platelets (Bld) [#/Vol] 222 10*3/uL Normal 150-450 [facility] Comment on above: Performed By: #### L 500.2500, L100.0100 #### [facility] [address] [place], [address] RBC (Bld) [#/Vol] 3.65 10*6/uL Low 4.6-6.2 [facility] Comment on above: Performed By: #### L 500.2500, L100.0100 #### [facility] [address] [place], [address] RDW SD 49.6 fl High 35.1-43.9 [facility] Comment on above: Performed By: #### L 500.2500, L100.0100 #### [facility] [address] [place], [address] WBC (Bld) [#/Vol] 5.8 10*3/uL Normal 4.4-11.0 [facility] Comment on above: Performed By: #### L 500.2500, L100.0100 #### [facility] [address] [place], [address] Basic Metabolic Profile (BMP )on 11-04-2024 BUN/CRE 18.2 RATIO Normal - [facility] Comment on above: Performed By: #### L 500.2500, L100.0100 ####[facility] [address] [place], [address] Calcium [Mass/Vol] 8.7 mg/dL Normal 7.6-11.0 [facility] Comment on above: Performed By: #### L 500.2500, L100.0100 ####[facility] [address] [place], [address] Chloride [Moles/Vol] 103 mmol/L Normal 98-108 [facility] Comment on above: Performed By: #### L 500.2500, L100.0100 ####[facility] [address] [place], [address] CO2 [Moles/Vol] 25.2 mmol/L Normal 21.0-32.0 [facility] Comment on above: Performed By: #### L 500.2500, L100.0100 ####[facility] [address] [place], [address] Creatinine [Mass/Vol] 0.84 mg/dL Normal 0.70-1.20 [facility] Comment on above: Performed By: #### L 500.2500, L100.0100 ####[facility] [address] [place], [address] ECRCL 64.44 ml/min Normal 50-250 [facility] Comment on above: Performed By: #### L 500.2500, L100.0100 ####[facility] [address] [place], [address] GAP 8 Normal 5-15 [facility] Comment on above: Performed By: #### L 500.2500, L100.0100 ####[facility] [address] [place], [address] GFR/1.73 sq M.predicted among non-blacks MDRD (S/P/Bld) [Vol rate/Area] 83 mL/min/{1.73_m2} Normal >60 [facility] Comment on above: Result Comment: mL/m in/1.73m2 CKD-EPI Creatinine Equation (2020) Performed By: #### L 500.2500, L100.0100 ####[facility] [address] [place], [address] Glucose [Mass/Vol] 134 mg/dL High 70-99 [facility] Comment on above: Performed By: #### L 500.2500, L100.0100 ####[facility] [address] [place], [address] Potassium [Moles/Vol] 4.7 mmol/L Normal 3.3-5.1 [facility] Comment on above: Result Comment: Hemo lysis present, Results??could be affected. ?? Performed By: #### L 500.2500, L100.0100 ####[facility] [address] [place], [address] Sodium [Moles/Vol] 137 mmol/L Normal 133-145 [facility] Comment on above: Performed By: #### L 500.2500, L100.0100 ####[facility] [address] [place], [address] Urea nitrogen [Mass/Vol] 15 mg/dL Normal 4-19 [facility] Comment on above: Performed By: #### L 500.2500, L100.0100 ####[facility] [address] [place], [address] Bedside Glucoseon 11-04-2024 FINGERSTICK GLU 146 mg/dL High 74-106 [facility] Comment on above: Result Comment: TYRONE GEMENT OF PATIENT CARE PER NURSING PROTOCOL Performed By: #### L 501.080 ####[facility] [address] [place], [address] FINGERSTICK GLU 134 mg/dL High 74-106 [facility] Comment on above: Result Comment: TYRONE GEMENT OF PATIENT CARE PER NURSING PROTOCOL Performed By: #### L 100.0100, L500.2500 #### [facility] [address] [place], [address] FINGERSTICK GLU 126 mg/dL High 74-106 [facility] Comment on above: Result Comment: TYRONE GEMENT OF PATIENT CARE PER NURSING PROTOCOL Performed By: #### L 501.080 ####[facility] [address] [place], [address] FINGERSTICK GLU 134 mg/dL High 74-106 [facility] Comment on above: Result Comment: TYRONE GEMENT OF PATIENT CARE PER NURSING PROTOCOL Performed By: #### L 501.080 ####[facility] [address] [place], [address] CBC W/Diff, Automatedon 2 0 Absolute Lymph 1.73 X10 3/uL Normal 0.83-4.51 [facility] Comment on above: Performed By: #### L 500.2500, L100.0100 ####[facility] [address] [place], [address] Absolute Neut 3.0 X10 3/uL Normal 2.0-7.7 [facility] Comment on above: Performed By: #### L 500.2500, L100.0100 ####[facility] [address] [place], [address] Basophils/100 WBC (Bld) 0.7 % Normal 0-1 [facility] Comment on above: Performed By: #### L 500.2500, L100.0100 ####[facility] [address] [place], [address] Eosinophils/100 WBC (Bld) 7.0 % High 0-5 [facility] Comment on above: Performed By: #### L 500.2500, L100.0100 ####[facility] [address] [place], [address] Erythrocyte distribution width (RBC) [Ratio] 14.2 % Normal 11.6-14.6 [facility] Comment on above: Performed By: #### L 500.2500, L100.0100 ####[facility] [address] [place], [address] Hematocrit (Bld) [Volume fraction] 35.1 % Low 40-54 [facility] Comment on above: Performed By: #### L 500.2500, L100.0100 ####[facility] [address] [place], [address] Hemoglobin (Bld) [Mass/Vol] 11.1 g/dL Low 13.0-16.5 [facility] Comment on above: Performed By: #### L 500.2500, L100.0100 ####[facility] [address] [place], [address] IG% 0.400 Normal 0.0-0.9 [facility] Comment on above: Result Comment: IG% - Immature Granulocytes (promyelocytes, myelocytes and metamyelocytes) > 1% indicates that a LEFT SHIFT is Present. Performed By: #### L 500.2500, L100.0100 ####[facility] [address] [place], [address] Lymphocytes/100 WBC (Bld) 31.0 % Normal 19-41 [facility] Comment on above: Performed By: #### L 500.2500, L100.0100 ####[facility] [address] [place], [address] MCH (RBC) [Entitic mass] 30.4 pg Normal 27.0-32.0 [facility] Comment on above: Performed By: #### L 500.2500, L100.0100 ####[facility] [address] [place], [address] MCHC (RBC) [Mass/Vol] 31.6 g/dL Low 32-36 [facility] Comment on above: Performed By: #### L 500.2500, L100.0100 ####[facility] [address] [place], [address] MCV (RBC) [Entitic vol] 96.2 fL High 80-94 [facility] Comment on above: Performed By: #### L 500.2500, L100.0100 ####[facility] [address] [place], [address] Monocytes/100 WBC (Bld) 8.1 % Normal 0-10 [facility] Comment on above: Performed By: #### L 500.2500, L100.0100 ####[facility] [address] [place], [address] Neutrophils/100 WBC (Bld) 52.8 % Normal 47-70 [facility] Comment on above: Performed By: #### L 500.2500, L100.0100 ####[facility] [address] [place], [address] Nucleated RBC (Bld) [#/Vol] 0 10*3/uL Normal 0-5 [facility] Comment on above: Performed By: #### L 500.2500, L100.0100 ####[facility] [address] [place], [address] Platelet mean volume (Bld) [Entitic vol] 10.5 fL Normal 6.2-12.0 [facility] Comment on above: Performed By: #### L 500.2500, L100.0100 ####[facility] [address] [place], [address] Platelets (Bld) [#/Vol] 217 10*3/uL Normal 150-450 [facility] Comment on above: Performed By: #### L 500.2500, L100.0100 ####[facility] [address] [place], [address] RBC (Bld) [#/Vol] 3.65 10*6/uL Low 4.6-6.2 [facility] Comment on above: Performed By: #### L 500.2500, L100.0100 ####[facility] [address] [place], [address] RDW SD 50.1 fl High 35.1-43.9 [facility] Comment on above: Performed By: #### L 500.2500, L100.0100 ####[facility] [address] [place], [address] WBC (Bld) [#/Vol] 5.6 10*3/uL Normal 4.4-11.0 [facility] Comment on above: Performed By: #### L 500.2500, L100.0100 ####[facility] [address] [place], [address] Basic Metabolic Profile (BMP )on 11-03-2024 BUN/CRE 20.7 RATIO High 10-20 [facility] Comment on above: Performed By: #### L 100.0100, L500.2500 #### [facility] [address] [place], [address] Calcium [Mass/Vol] 8.7 mg/dL Normal 7.6-11.0 [facility] Comment on above: Performed By: #### L 100.0100, L500.2500 #### [facility] [address] [place], [address] Chloride [Moles/Vol] 101 mmol/L Normal 98-108 [facility] Comment on above: Performed By: #### L 100.0100, L500.2500 #### [facility] [address] [place], [address] CO2 [Moles/Vol] 24.5 mmol/L Normal 21.0-32.0 [facility] Comment on above: Performed By: #### L 100.0100, L500.2500 #### [facility] [address] [place], [address] Creatinine [Mass/Vol] 0.88 mg/dL Normal 0.70-1.20 [facility] Comment on above: Performed By: #### L 100.0100, L500.2500 #### [facility] [address] [place], [address] ECRCL 61.51 ml/min Normal 50-250 [facility] Comment on above: Performed By: #### L 100.0100, L500.2500 #### [facility] [address] [place], [address] GAP 10 Normal 5-15 [facility] Comment on above: Performed By: #### L 100.0100, L500.2500 #### [facility] [address] [place], [address] GFR/1.73 sq M.predicted among non-blacks MDRD (S/P/Bld) [Vol rate/Area] 82 mL/min/{1.73_m2} Normal >60 [facility] Comment on above: Result Comment: mL/m in/1.73m2 CKD-EPI Creatinine Equation (2020) Performed By: #### L 100.0100, L500.2500 #### [facility] [address] [place], [address] Glucose [Mass/Vol] 140 mg/dL High 70-99 [facility] Comment on above: Performed By: #### L 100.0100, L500.2500 #### [facility] [address] [place], [address] Potassium [Moles/Vol] 4.0 mmol/L Normal 3.3-5.1 [facility] Comment on above: Performed By: #### L 100.0100, L500.2500 #### [facility] [address] [place], [address] Sodium [Moles/Vol] 135 mmol/L Normal 133-145 [facility] Comment on above: Performed By: #### L 100.0100, L500.2500 #### [facility] [address] [place], [address] Urea nitrogen [Mass/Vol] 18 mg/dL Normal 4-19 [facility] Comment on above: Performed By: #### L 100.0100, L500.2500 #### [facility] [address] [place], [address] Bedside Glucoseon 11-03-2024 FINGERSTICK GLU 156 mg/dL High 74-106 [facility] Comment on above: Result Comment: TYRONE OVERTON OF PATIENT CARE PER NURSING PROTOCOL Performed By: #### L 500.2500, L100.0100 #### [facility] [address] [place], [address] FINGERSTICK GLU 140 mg/dL High 74-106 [facility] Comment on above: Result Comment: TYRONE GEMENT OF PATIENT CARE PER NURSING PROTOCOL Performed By: #### L 500.2500, L100.0100 #### [facility] [address] [place], [address] FINGERSTICK GLU 126 mg/dL High 74-106 [facility] Comment on above: Result Comment: TYRONE GEMENT OF PATIENT CARE PER NURSING PROTOCOL Performed By: #### L 501.080 #### [facility] [address] [place], [address] FINGERSTICK GLU 140 mg/dL High 74-106 [facility] Comment on above: Result Comment: TYRONE GEMENT OF PATIENT CARE PER NURSING PROTOCOL Performed By: #### L 500.2500, L100.0100 #### [facility] [address] [place], [address] CBC W/Diff, Automatedon 10-16 Absolute Lymph 1.43 X10 3/uL Normal 0.83-4.51 [facility] Comment on above: Performed By: #### L 100.0100, L500.2500 #### [facility] [address] [place], [address] Absolute Neut 3.9 X10 3/uL Normal 2.0-7.7 [facility] Comment on above: Performed By: #### L 100.0100, L500.2500 #### [facility] [address] [place], [address] Basophils/100 WBC (Bld) 0.6 % Normal 0-1 [facility] Comment on above: Performed By: #### L 100.0100, L500.2500 #### [facility] [address] [place], [address] Eosinophils/100 WBC (Bld) 5.6 % High 0-5 [facility] Comment on above: Performed By: #### L 100.0100, L500.2500 #### [facility] [address] [place], [address] Erythrocyte distribution width (RBC) [Ratio] 14.2 % Normal 11.6-14.6 [facility] Comment on above: Performed By: #### L 100.0100, L500.2500 #### [facility] [address] [place], [address] Hematocrit (Bld) [Volume fraction] 34.4 % Low 40-54 [facility] Comment on above: Performed By: #### L 100.0100, L500.2500 #### [facility] [address] [place], [address] Hemoglobin (Bld) [Mass/Vol] 11.0 g/dL Low 13.0-16.5 [facility] Comment on above: Performed By: #### L 100.0100, L500.2500 #### [facility] [address] [place], [address] IG% 0.300 Normal 0.0-0.9 [facility] Comment on above: Result Comment: IG% - Immature Granulocytes (promyelocytes, myelocytes and metamyelocytes) > 1% indicates that a LEFT SHIFT is Present. Performed By: #### L 100.0100, L500.2500 #### [facility] [address] [place], [address] Lymphocytes/100 WBC (Bld) 22.8 % Normal 19-41 [facility] Comment on above: Performed By: #### L 100.0100, L500.2500 #### [facility] [address] [place], [address] MCH (RBC) [Entitic mass] 30.4 pg Normal 27.0-32.0 [facility] Comment on above: Performed By: #### L 100.0100, L500.2500 #### [facility] [address] [place], [address] MCHC (RBC) [Mass/Vol] 32.0 g/dL Normal 32-36 [facility] Comment on above: Performed By: #### L 100.0100, L500.2500 #### [facility] [address] [place], [address] MCV (RBC) [Entitic vol] 95.0 fL High 80-94 [facility] Comment on above: Performed By: #### L 100.0100, L500.2500 #### [facility] [address] [place], [address] Monocytes/100 WBC (Bld) 8.0 % Normal 0-10 [facility] Comment on above: Performed By: #### L 100.0100, L500.2500 #### [facility] [address] [place], [address] Neutrophils/100 WBC (Bld) 62.7 % Normal 47-70 [facility] Comment on above: Performed By: #### L 100.0100, L500.2500 #### [facility] [address] [place], [address] Nucleated RBC (Bld) [#/Vol] 0 10*3/uL Normal 0-5 [facility] Comment on above: Performed By: #### L 100.0100, L500.2500 #### [facility] [address] [place], [address] Platelet mean volume (Bld) [Entitic vol] 10.1 fL Normal 6.2-12.0 [facility] Comment on above: Performed By: #### L 100.0100, L500.2500 #### [facility] [address] [place], [address] Platelets (Bld) [#/Vol] 214 10*3/uL Normal 150-450 [facility] Comment on above: Performed By: #### L 100.0100, L500.2500 #### [facility] [address] [place], [address] RBC (Bld) [#/Vol] 3.62 10*6/uL Low 4.6-6.2 [facility] Comment on above: Performed By: #### L 100.0100, L500.2500 #### [facility] [address] [place], [address] RDW SD 49.2 fl High 35.1-43.9 [facility] Comment on above: Performed By: #### L 100.0100, L500.2500 #### [facility] [address] [place], [address] WBC (Bld) [#/Vol] 6.3 10*3/uL Normal 4.4-11.0 [facility] Comment on above: Performed By: #### L 100.0100, L500.2500 #### [facility] [address] [place], [address] 12 Lead EKGon 11-02-2024 12 Lead EKG [facility] Cardiovascular Services [address] [place] [address] 12 Lead EKG 11/02/24 1553 MR#: [id number] Acct: [id number] Name: LINO WHEELER Rep #: [id number] : 1935 89 From: Binu Alexis MD Attending Dr: Dr. Lu Coreas, DO Status: ADM I NO Ordering Dr: Mindi Nelson MD Date: 11/02/24 Location: MS3 Sex: M C Admitted: 10/30/24 Test Reason : ARRYTH Blood Pressure : */* mmHG Vent. Rate : 96 BPM Atrial Rate : 96 BPM P-R Int : 214 ms QRS Dur : 110 ms QT Int : 372 ms P-R-T Axes : 46 39 43 degrees QTcB Int : 469 ms Sinus rhythm with 1st degree A-V block Otherwise normal ECG No previous ECGs available Confirmed by REUBEN MICHEL, BINU ([id number]), manuscript editor SIM MILES ([id number]) on 11/05/2024 10:43:58 AM Referred By: Confirmed By: BINU ALEXIS MD 11/05/24 1043 Date Binu Alexis MD CC: Dr. Saulo Schultz MD; Dr. Lu Coreas DO; Dr. Mindi Nelson MD Signed Normal [facility] Basic Metabolic Profile (BMP )on 11-02-2024 BUN/CRE 25.5 RATIO High 10-20 [facility] Comment on above: Performed By: #### L 500.2500, L100.0100 ####[facility] [address] [place], [address] Calcium [Mass/Vol] 8.8 mg/dL Normal 7.6-11.0 [facility] Comment on above: Performed By: #### L 500.2500, L100.0100 ####[facility] [address] [place], [address] Chloride [Moles/Vol] 103 mmol/L Normal 98-108 [facility] Comment on above: Performed By: #### L 500.2500, L100.0100 ####[facility] [address] [place], [address] CO2 [Moles/Vol] 23.3 mmol/L Normal 21.0-32.0 [facility] Comment on above: Performed By: #### L 500.2500, L100.0100 ####[facility] [address] [place], [address] Creatinine [Mass/Vol] 0.94 mg/dL Normal 0.70-1.20 [facility] Comment on above: Performed By: #### L 500.2500, L100.0100 ####[facility] [address] [place], [address] ECRCL 53.28 ml/min Normal 50-250 [facility] Comment on above: Performed By: #### L 500.2500, L100.0100 ####[facility] [address] [place], [address] GAP 10 Normal 5-15 [facility] Comment on above: Performed By: #### L 500.2500, L100.0100 ####[facility] [address] [place], [address] GFR/1.73 sq M.predicted among non-blacks MDRD (S/P/Bld) [Vol rate/Area] 78 mL/min/{1.73_m2} Normal >60 [facility] Comment on above: Result Comment: mL/m in/1.73m2 CKD-EPI Creatinine Equation (2020) Performed By: #### L 500.2500, L100.0100 ####[facility] [address] [place], [address] Glucose [Mass/Vol] 132 mg/dL High 70-99 [facility] Comment on above: Performed By: #### L 500.2500, L100.0100 ####[facility] [address] [place], [address] Potassium [Moles/Vol] 4.1 mmol/L Normal 3.3-5.1 [facility] Comment on above: Result Comment: Hemo lysis present, Results??could be affected. ?? Performed By: #### L 500.2500, L100.0100 ####[facility] [address] [place], [address] Sodium [Moles/Vol] 136 mmol/L Normal 133-145 [facility] Comment on above: Performed By: #### L 500.2500, L100.0100 ####[facility] [address] [place], [address] Urea nitrogen [Mass/Vol] 24 mg/dL High 4-19 [facility] Comment on above: Performed By: #### L 500.2500, L100.0100 ####[facility] [address] [place], [address] Bedside Glucoseon 11-02-2024 FINGERSTICK GLU 142 mg/dL High 74-106 [facility] Comment on above: Result Comment: TYRONE GEMENT OF PATIENT CARE PER NURSING PROTOCOL Performed By: #### L 500.2500, L100.0100 #### [facility] [address] [place], [address] FINGERSTICK GLU 161 mg/dL High 74-106 [facility] Comment on above: Result Comment: TYRONE GEMENT OF PATIENT CARE PER NURSING PROTOCOL Performed By: #### L 500.2500, L100.0100 #### [facility] [address] [place], [address] FINGERSTICK GLU 135 mg/dL High 74-106 [facility] Comment on above: Result Comment: TYRONE GEMENT OF PATIENT CARE PER NURSING PROTOCOL Performed By: #### L 501.080 #### [facility] [address] [place], [address] FINGERSTICK GLU 136 mg/dL High 74-106 [facility] Comment on above: Result Comment: TYRONE GEMENT OF PATIENT CARE PER NURSING PROTOCOL Performed By: #### L 500.2500, L100.0100 #### [facility] [address] [place], [address] CBC W/Diff, Automatedon 04- Absolute Lymph 1.72 X10 3/uL Normal 0.83-4.51 [facility] Comment on above: Performed By: #### L 500.2500, L100.0100 ####[facility] [address] [place], [address] Absolute Neut 4.0 X10 3/uL Normal 2.0-7.7 [facility] Comment on above: Performed By: #### L 500.2500, L100.0100 ####[facility] [address] [place], [address] Basophils/100 WBC (Bld) 0.8 % Normal 0-1 [facility] Comment on above: Performed By: #### L 500.2500, L100.0100 ####[facility] [address] [place], [address] Eosinophils/100 WBC (Bld) 4.3 % Normal 0-5 [facility] Comment on above: Performed By: #### L 500.2500, L100.0100 ####[facility] [address] [place], [address] Erythrocyte distribution width (RBC) [Ratio] 14.3 % Normal 11.6-14.6 [facility] Comment on above: Performed By: #### L 500.2500, L100.0100 ####[facility] [address] [place], [address] Hematocrit (Bld) [Volume fraction] 36.2 % Low 40-54 [facility] Comment on above: Performed By: #### L 500.2500, L100.0100 ####[facility] [address] [place], [address] Hemoglobin (Bld) [Mass/Vol] 11.6 g/dL Low 13.0-16.5 [facility] Comment on above: Performed By: #### L 500.2500, L100.0100 ####[facility] [address] [place], [address] IG% 0.200 Normal 0.0-0.9 [facility] Comment on above: Result Comment: IG% - Immature Granulocytes (promyelocytes, myelocytes and metamyelocytes) > 1% indicates that a LEFT SHIFT is Present. Performed By: #### L 500.2500, L100.0100 ####[facility] [address] [place], [address] Lymphocytes/100 WBC (Bld) 26.7 % Normal 19-41 [facility] Comment on above: Performed By: #### L 500.2500, L100.0100 ####[facility] [address] [place], [address] MCH (RBC) [Entitic mass] 30.6 pg Normal 27.0-32.0 [facility] Comment on above: Performed By: #### L 500.2500, L100.0100 ####[facility] [address] [place], [address] MCHC (RBC) [Mass/Vol] 32.0 g/dL Normal 32-36 [facility] Comment on above: Performed By: #### L 500.2500, L100.0100 ####[facility] [address] [place], [address] MCV (RBC) [Entitic vol] 95.5 fL High 80-94 [facility] Comment on above: Performed By: #### L 500.2500, L100.0100 ####[facility] [address] [place], [address] Monocytes/100 WBC (Bld) 5.9 % Normal 0-10 [facility] Comment on above: Performed By: #### L 500.2500, L100.0100 ####[facility] [address] [place], [address] Neutrophils/100 WBC (Bld) 62.1 % Normal 47-70 [facility] Comment on above: Performed By: #### L 500.2500, L100.0100 ####[facility] [address] [place], [address] Nucleated RBC (Bld) [#/Vol] 0 10*3/uL Normal 0-5 [facility] Comment on above: Performed By: #### L 500.2500, L100.0100 ####[facility] [address] [place], [address] Platelet mean volume (Bld) [Entitic vol] 10.0 fL Normal 6.2-12.0 [facility] Comment on above: Performed By: #### L 500.2500, L100.0100 ####[facility] [address] [place], [address] Platelets (Bld) [#/Vol] 236 10*3/uL Normal 150-450 [facility] Comment on above: Performed By: #### L 500.2500, L100.0100 ####[facility] [address] [place], [address] RBC (Bld) [#/Vol] 3.79 10*6/uL Low 4.6-6.2 [facility] Comment on above: Performed By: #### L 500.2500, L100.0100 ####[facility] [address] [place], [address] RDW SD 50.1 fl High 35.1-43.9 [facility] Comment on above: Performed By: #### L 500.2500, L100.0100 ####[facility] [address] [place], [address] WBC (Bld) [#/Vol] 6.5 10*3/uL Normal 4.4-11.0 [facility] Comment on above: Performed By: #### L 500.2500, L100.0100 ####[facility] [address] [place], [address] CTA Chest W/WO Contraston CTA Chest W/WO Contrast [facility] Imaging Services [address] [place] [address] CTA Chest W/WO Contrast MR#: [id number] Acct: [id number] Name: LINO WHEELER Rep #: [id number] : 1935 M 89 From: Fredis Bird MD PCP: Dr. Saulo Schultz MD Status: ADM ALEX Study: CTA Chest W/WO Contrast Date of Exam: 11/02/24 Exam# [id number] Ordering Dr: Mindi Nelson MD PROCEDURE: CTA CHEST W/WO CONTRAST 11/02/2024 REASON FOR EXAM: ELEVATED D-DIMER TECHNIQUE: CTA axial imaging of the chest with intravenous contrast. Coronal and Sagittal reconstruction series were provided. 3D, 3D post processing, 3D reconstructions, Maximum intensity projection (MIPs) Volume rendering and Shaded surface rendering was provided. PATIENT PREPARATION: Per protocol One or more dose reduction techniques were used (e.g., Automated exposure control, adjustment of the mA and/or kV according to patient size, use of iterative reconstruction technique). FINDINGS: Hardware: None Lymph nodes: Unremarkable. Heart: No cardiomegaly. RV/LV Diameter Ratio: 0.8 Thoracic Aorta: No thoracic aortic aneurysm or dissection. Pulmonary Vessels: Main pulmonary arteries are enlarged consistent with pulmonary arterial hypertension. No filling defect to suggest pulmonary embolism. Most Proximal Level of Embolus (if embolus present): Lungs and Airways: The lungs are normally expanded and clear. Pleura: No pleural effusion. No pneumothorax. Upper Abdomen: Visualized portions of the upper abdominal viscera are unremarkable. Bones: Bone windows are unremarkable. Elevated left hemidiaphragm with some left lower lobe atelectasis. CT/CTA Chest W/WO Contrast IMPRESSION: NORMAL CHEST CTA. NO EVIDENCE OF ACUTE PULMONARY EMBOLISM. Reading Location: [id number] CC: Dr. Saulo Schultz MD; Dr. Mindi Nelson MD Bisque Placer: Signed Normal [facility] D-Dimer Quantitative (DVT/PE )on 11-02-2024 D-DIMER QUANT 1.28 FEU/ug/m Invalid Interpretation Code 0.27-0.49 [facility] Comment on above: Result Comment: D-Di christiana ELEVATED (>0.49): Additional studies and clinical assessments are indicated to conclude diagnosis of: Deep Vein Thrombosis (DVT) or Pulmonary Embolism (PE) CRITICAL VALUE CALLED TO Caridad TRIPATHI 11/02/24 Moses2 Keshia Song. RESULTS READ BACK BY URIEL. Performed By: #### L 500.2500, L100.0100 #### [facility] [address] [place], [address] Basic Metabolic Profile (BMP )on 11-01-2024 BUN/CRE 26.5 RATIO High 10-20 [facility] Comment on above: Performed By: #### L 100.0100, L500.2500 #### [facility] [address] [place], [address] Calcium [Mass/Vol] 8.8 mg/dL Normal 7.6-11.0 [facility] Comment on above: Performed By: #### L 100.0100, L500.2500 #### [facility] [address] [place], [address] Chloride [Moles/Vol] 104 mmol/L Normal 98-108 [facility] Comment on above: Performed By: #### L 100.0100, L500.2500 #### [facility] [address] [place], [address] CO2 [Moles/Vol] 25.5 mmol/L Normal 21.0-32.0 [facility] Comment on above: Performed By: #### L 100.0100, L500.2500 #### [facility] [address] [place], [address] Creatinine [Mass/Vol] 1.10 mg/dL Normal 0.70-1.20 [facility] Comment on above: Performed By: #### L 100.0100, L500.2500 #### [facility] [address] [place], [address] ECRCL 45.53 ml/min Low 50-250 [facility] Comment on above: Performed By: #### L 100.0100, L500.2500 #### [facility] [address] [place], [address] GAP 9 Normal 5-15 [facility] Comment on above: Performed By: #### L 100.0100, L500.2500 #### [facility] [address] [place], [address] GFR/1.73 sq M.predicted among non-blacks MDRD (S/P/Bld) [Vol rate/Area] 64 mL/min/{1.73_m2} Normal >60 [facility] Comment on above: Result Comment: mL/m in/1.73m2 CKD-EPI Creatinine Equation (2020) Performed By: #### L 100.0100, L500.2500 #### [facility] [address] [place], [address] Glucose [Mass/Vol] 111 mg/dL High 70-99 [facility] Comment on above: Performed By: #### L 100.0100, L500.2500 #### [facility] [address] [place], [address] Potassium [Moles/Vol] 4.1 mmol/L Normal 3.3-5.1 [facility] Comment on above: Performed By: #### L 100.0100, L500.2500 #### [facility] [address] [place], [address] Sodium [Moles/Vol] 139 mmol/L Normal 133-145 [facility] Comment on above: Performed By: #### L 100.0100, L500.2500 #### [facility] [address] [place], [address] Urea nitrogen [Mass/Vol] 29 mg/dL High 4-19 [facility] Comment on above: Performed By: #### L 100.0100, L500.2500 #### [facility] [address] [place], [address] Bedside Glucoseon 11-01-2024 FINGERSTICK GLU 147 mg/dL High 74-106 [facility] Comment on above: Result Comment: TYRONE GEMENT OF PATIENT CARE PER NURSING PROTOCOL Performed By: #### L 501.080 ####[facility] [address] [place], [address] FINGERSTICK GLU 133 mg/dL High 74-106 [facility] Comment on above: Result Comment: TYRONE GEMENT OF PATIENT CARE PER NURSING PROTOCOL Performed By: #### L 100.0100, L500.2500 #### [facility] [address] [place], [address] FINGERSTICK GLU 142 mg/dL High 74-106 [facility] Comment on above: Result Comment: TYRONE GEMENT OF PATIENT CARE PER NURSING PROTOCOL Performed By: #### L 501.080 ####[place] [facility] [address] [place], [address] FINGERSTICK GLU 121 mg/dL High 74-106 [facility] Comment on above: Result Comment: TYRONE GEMENT OF PATIENT CARE PER NURSING PROTOCOL Performed By: #### L 100.0100, L500.2500 #### [facility] [address] [place], [address] CBC W/Diff, Automatedon 10-16 Absolute Lymph 2.42 X10 3/uL Normal 0.83-4.51 [facility] Comment on above: Performed By: #### L 100.0100, L500.2500 #### [facility] [address] [place], [address] Absolute Neut 4.7 X10 3/uL Normal 2.0-7.7 [facility] Comment on above: Performed By: #### L 100.0100, L500.2500 #### [facility] [address] [place], [address] Basophils/100 WBC (Bld) 0.6 % Normal 0-1 [facility] Comment on above: Performed By: #### L 100.0100, L500.2500 #### [facility] [address] [place], [address] Eosinophils/100 WBC (Bld) 2.7 % Normal 0-5 [facility] Comment on above: Performed By: #### L 100.0100, L500.2500 #### [facility] [address] [place], [address] Erythrocyte distribution width (RBC) [Ratio] 14.5 % Normal 11.6-14.6 [facility] Comment on above: Performed By: #### L 100.0100, L500.2500 #### [facility] [address] [place], [address] Hematocrit (Bld) [Volume fraction] 36.1 % Low 40-54 [facility] Comment on above: Performed By: #### L 100.0100, L500.2500 #### [facility] [address] [place], [address] Hemoglobin (Bld) [Mass/Vol] 11.5 g/dL Low 13.0-16.5 [facility] Comment on above: Performed By: #### L 100.0100, L500.2500 #### [facility] [address] [place], [address] IG% 0.200 Normal 0.0-0.9 [facility] Comment on above: Result Comment: IG% - Immature Granulocytes (promyelocytes, myelocytes and metamyelocytes) > 1% indicates that a LEFT SHIFT is Present. Performed By: #### L 100.0100, L500.2500 #### [facility] [address] [place], [address] Lymphocytes/100 WBC (Bld) 30.1 % Normal 19-41 [facility] Comment on above: Performed By: #### L 100.0100, L500.2500 #### [facility] [address] [place], [address] MCH (RBC) [Entitic mass] 30.6 pg Normal 27.0-32.0 [facility] Comment on above: Performed By: #### L 100.0100, L500.2500 #### [facility] [address] [place], [address] MCHC (RBC) [Mass/Vol] 31.9 g/dL Low 32-36 [facility] Comment on above: Performed By: #### L 100.0100, L500.2500 #### [facility] [address] [place], [address] MCV (RBC) [Entitic vol] 96.0 fL High 80-94 [facility] Comment on above: Performed By: #### L 100.0100, L500.2500 #### [facility] [address] [place], [address] Monocytes/100 WBC (Bld) 7.5 % Normal 0-10 [facility] Comment on above: Performed By: #### L 100.0100, L500.2500 #### [facility] [address] [place], [address] Neutrophils/100 WBC (Bld) 58.9 % Normal 47-70 [facility] Comment on above: Performed By: #### L 100.0100, L500.2500 #### [facility] [address] [place], [address] Nucleated RBC (Bld) [#/Vol] 0 10*3/uL Normal 0-5 [facility] Comment on above: Performed By: #### L 100.0100, L500.2500 #### [facility] [address] [place], [address] Platelet mean volume (Bld) [Entitic vol] 10.3 fL Normal 6.2-12.0 [facility] Comment on above: Performed By: #### L 100.0100, L500.2500 #### [facility] [address] [place], [address] Platelets (Bld) [#/Vol] 241 10*3/uL Normal 150-450 [facility] Comment on above: Performed By: #### L 100.0100, L500.2500 #### [facility] [address] [place], [address] RBC (Bld) [#/Vol] 3.76 10*6/uL Low 4.6-6.2 [facility] Comment on above: Performed By: #### L 100.0100, L500.2500 #### [facility] [address] [place], [address] RDW SD 50.4 fl High 35.1-43.9 [facility] Comment on above: Performed By: #### L 100.0100, L500.2500 #### [facility] [address] [place], [address] WBC (Bld) [#/Vol] 8.1 10*3/uL Normal 4.4-11.0 [facility] Comment on above: Performed By: #### L 100.0100, L500.2500 #### [facility] [address] [place], [address] Protein, Urine (Random)on Protein (U) [Mass/Vol] 37.2 mg/dL High 0.0-12.0 [facility] Comment on above: Performed By: #### L 100.0100, L500.2500 #### [facility] [address] [place], [address] Urinalysis, Completeon 11-01 CAST,COARSE GR 0-5 SEEN Normal 0-5 /lpf [facility] Comment on above: Order Comment: FLORIAN CTOR TO SPECIFY Performed By: #### L 400.0001 ####[facility] [address] [place], [address] CAST,HYALINE 25-50 SEEN Normal 0-5 [facility] Comment on above: Order Comment: FLORIAN CTOR TO SPECIFY Performed By: #### L 400.0001 ####[facility] [address] [place], [address] CA OX CRYSTAL 1+ /hpf Normal [facility] Comment on above: Order Comment: FLORIAN CTOR TO SPECIFY Performed By: #### L 400.0001 ####[facility] [address] [place], [address] Mucus Ql (Urine sed) 1+ /hpf Normal [facility] Comment on above: Order Comment: FLORIAN CTOR TO SPECIFY Performed By: #### L 400.0001 ####[facility] [address] [place], [address] WBC 0-5 SEEN Normal 0-5 [facility] Comment on above: Order Comment: FLORIAN CTOR TO SPECIFY Performed By: #### L 400.0001 ####[facility] [address] [place], [address] BACTERIA 0 SEEN Normal None Seen [facility] Comment on above: Order Comment: FLORIAN CTOR TO SPECIFY Performed By: #### L 400.0001 ####[facility] [address] [place], [address] EPI,SQUAMOUS 0 SEEN Normal 0-5 [facility] Comment on above: Order Comment: FLORIAN CTOR TO SPECIFY Performed By: #### L 400.0001 ####[facility] [address] [place], [address] RBC 0 SEEN Normal 0-5 [facility] Comment on above: Order Comment: FLORIAN CTOR TO SPECIFY Performed By: #### L 400.0001 ####[facility] [address] [place], [address] Urine protein measurement (m ass/volume)Ordered By: Mindi Nelson on 11-01-2024 Protein (U) [Mass/Vol] 37.2 mg/dL High 0.0-12.0 [facility] Basic Metabolic Profile (BMP )on 10-31-2024 BUN/CRE 19.9 RATIO Normal 10-20 [facility] Comment on above: Performed By: #### L 501.080 #### [facility] [address] [place], [address] Calcium [Mass/Vol] 9.0 mg/dL Normal 7.6-11.0 [facility] Comment on above: Performed By: #### L 501.080 #### [facility] [address] [place], [address] Chloride [Moles/Vol] 103 mmol/L Normal 98-108 [facility] Comment on above: Performed By: #### L 501.080 #### [facility] [address] [place], [address] CO2 [Moles/Vol] 22.5 mmol/L Normal 21.0-32.0 [facility] Comment on above: Performed By: #### L 501.080 #### [facility] [address] [place], [address] Creatinine [Mass/Vol] 0.83 mg/dL Normal 0.70-1.20 [facility] Comment on above: Performed By: #### L 501.080 #### [facility] [address] [place], [address] ECRCL 60.34 ml/min Normal 50-250 [facility] Comment on above: Performed By: #### L 501.080 #### [facility] [address] [place], [address] GAP 14 Normal 5-15 [facility] Comment on above: Performed By: #### L 501.080 #### [facility] [address] [place], [address] GFR/1.73 sq M.predicted among non-blacks MDRD (S/P/Bld) [Vol rate/Area] 84 mL/min/{1.73_m2} Normal >60 [facility] Comment on above: Result Comment: mL/m in/1.73m2 CKD-EPI Creatinine Equation (2020) Performed By: #### L 501.080 #### [facility] [address] [place], [address] Glucose [Mass/Vol] 145 mg/dL High 70-99 [facility] Comment on above: Performed By: #### L 501.080 #### [facility] [address] [place], [address] Potassium [Moles/Vol] 4.3 mmol/L Normal 3.3-5.1 [facility] Comment on above: Result Comment: Hemo lysis present, Results??could be affected. ?? Performed By: #### L 501.080 #### [facility] [address] [place], [address] Sodium [Moles/Vol] 139 mmol/L Normal 133-145 [facility] Comment on above: Performed By: #### L 501.080 #### [facility] [address] [place], [address] Urea nitrogen [Mass/Vol] 16 mg/dL Normal 4-19 [facility] Comment on above: Performed By: #### L 501.080 #### [facility] [address] [place], [address] Bedside Glucoseon 10-31-2024 FINGERSTICK GLU 121 mg/dL High 74-106 [facility] Comment on above: Result Comment: TYRONE GEMENT OF PATIENT CARE PER NURSING PROTOCOL Performed By: #### L 500.2500, L100.0100 #### [facility] [address] [place], [address] FINGERSTICK GLU 107 mg/dL High 74-106 [facility] Comment on above: Result Comment: TYRONE GEMENT OF PATIENT CARE PER NURSING PROTOCOL Performed By: #### L 500.2500, L100.0100 #### [facility] [address] [place], [address] FINGERSTICK GLU 143 mg/dL High 74-106 [facility] Comment on above: Result Comment: TYRONE GEMENT OF PATIENT CARE PER NURSING PROTOCOL Performed By: #### L 501.080 ####[facility] [address] [place], [address] FINGERSTICK GLU 145 mg/dL High 74-106 [facility] Comment on above: Result Comment: TYRONE GEMENT OF PATIENT CARE PER NURSING PROTOCOL Performed By: #### L 500.2500, L100.0100 #### [facility] [address] [place], [address] CBC W/Diff, Automatedon 04-1 Absolute Lymph 1.41 X10 3/uL Normal 0.83-4.51 [facility] Comment on above: Performed By: #### L 100.0100, L500.2500 #### [facility] [address] [place], [address] Absolute Neut 7.8 X10 3/uL High 2.0-7.7 [facility] Comment on above: Performed By: #### L 100.0100, L500.2500 #### [facility] [address] [place], [address] Basophils/100 WBC (Bld) 0.3 % Normal 0-1 [facility] Comment on above: Performed By: #### L 100.0100, L500.2500 #### [facility] [address] [place], [address] Eosinophils/100 WBC (Bld) 0.3 % Normal 0-5 [facility] Comment on above: Performed By: #### L 100.0100, L500.2500 #### [facility] [address] [place], [address] Erythrocyte distribution width (RBC) [Ratio] 14.6 % Normal 11.6-14.6 [facility] Comment on above: Performed By: #### L 100.0100, L500.2500 #### [facility] [address] [place], [address] Hematocrit (Bld) [Volume fraction] 40.4 % Normal 40-54 [facility] Comment on above: Performed By: #### L 100.0100, L500.2500 #### [facility] [address] [place], [address] Hemoglobin (Bld) [Mass/Vol] 13.1 g/dL Normal 13.0-16.5 [facility] Comment on above: Performed By: #### L 100.0100, L500.2500 #### [facility] [address] [place], [address] IG% 0.300 Normal 0.0-0.9 [facility] Comment on above: Result Comment: IG% - Immature Granulocytes (promyelocytes, myelocytes and metamyelocytes) > 1% indicates that a LEFT SHIFT is Present. Performed By: #### L 100.0100, L500.2500 #### [facility] [address] [place], [address] Lymphocytes/100 WBC (Bld) 14.3 % Low 19-41 [facility] Comment on above: Performed By: #### L 100.0100, L500.2500 #### [facility] [address] [place], [address] MCH (RBC) [Entitic mass] 30.6 pg Normal 27.0-32.0 [facility] Comment on above: Performed By: #### L 100.0100, L500.2500 #### [facility] [address] [place], [address] MCHC (RBC) [Mass/Vol] 32.4 g/dL Normal 32-36 [facility] Comment on above: Performed By: #### L 100.0100, L500.2500 #### [facility] [address] [place], [address] MCV (RBC) [Entitic vol] 94.4 fL High 80-94 [facility] Comment on above: Performed By: #### L 100.0100, L500.2500 #### [facility] [address] [place], [address] Monocytes/100 WBC (Bld) 5.7 % Normal 0-10 [facility] Comment on above: Performed By: #### L 100.0100, L500.2500 #### [facility] [address] [place], [address] Neutrophils/100 WBC (Bld) 79.1 % High 47-70 [facility] Comment on above: Performed By: #### L 100.0100, L500.2500 #### [facility] [address] [place], [address] Nucleated RBC (Bld) [#/Vol] 0 10*3/uL Normal 0-5 [facility] Comment on above: Performed By: #### L 100.0100, L500.2500 #### [facility] [address] [place], [address] Platelet mean volume (Bld) [Entitic vol] 9.9 fL Normal 6.2-12.0 [facility] Comment on above: Performed By: #### L 100.0100, L500.2500 #### [facility] [address] [place], [address] Platelets (Bld) [#/Vol] 282 10*3/uL Normal 150-450 [facility] Comment on above: Performed By: #### L 100.0100, L500.2500 #### [facility] [address] [place], [address] RBC (Bld) [#/Vol] 4.28 10*6/uL Low 4.6-6.2 [facility] Comment on above: Performed By: #### L 100.0100, L500.2500 #### [facility] [address] [place], [address] RDW SD 49.5 fl High 35.1-43.9 [facility] Comment on above: Performed By: #### L 100.0100, L500.2500 #### [facility] [address] [place], [address] WBC (Bld) [#/Vol] 9.9 10*3/uL Normal 4.4-11.0 [facility] Comment on above: Performed By: #### L 100.0100, L500.2500 #### [facility] [address] [place], [address] [facility] 10-31-2024 JAIRO Telephone (LEANN) -- LINO WHEELER ([id number]) 1935 M Date Time Provider Department 10/31/24 KEYLA SCHULTZ During your visit today, we recorded the following information about you: Stephen Berry LPN 10/31/2024 4:02 PM Signed Received orders from [employer]. Placed in provider's inbox for review. Route to [place] fax Allergies As of Date: 10/31/2024 Noted Allergy Reaction DILAUDID (HYDROMORPHONE (BULK)) 03/08/2017 1 - Mental Status Change PENICILLIN 01/14/2017 16 - Unknown TORADOL (KETOROLAC) 01/14/2017 9 - Itching Date Reviewed: 03/15/2024 Reviewed by: Delia Chaves LPN - Fully Assessed Reason for Visit: Orders [681] Cmt: [facility], [facility] Prescriptions as of 10/31/2024 - allopurinol (ZYLOPRIM) 300 mg tablet TAKE 1 TABLET BY MOUTH ONCE DAILY - blood sugar diagnostic test strip Use with blood glucose test 3 times daily. - tamsulosin (FLOMAX) 0.4 mg TAKE 1 CAPSULE BY MOUTH ONCE DAILY - escitalopram oxalate (LEXAPRO) 5 mg tablet Take 1 tablet by mouth once daily. - SITagliptin phosphate (JANUVIA) 100 mg tablet Take 1 tablet by mouth once daily. - rosuvastatin (CRESTOR) 10 mg tablet TAKE 1 TABLET BY MOUTH ONCE DAILY - Lancets Use with blood glucose test 3 times daily. - insulin glargine (LANTUS SOLOSTAR U-100 INSULIN) 100 unit/mL (3 mL) INJECT 21 UNITS SUBCUTANEOUSLY EVERY MORNING - amitriptyline (ELAVIL) 25 mg tablet Take 25 mg by mouth daily at bedtime. - levETIRAcetam (KEPPRA) 500 mg tablet TAKE 1 TABLET BY MOUTH TWICE DAILY - gabapentin (NEURONTIN) 100 mg capsule Take 1 capsule by mouth two times a day for 30 days. - azelastine 0.1% nasal spray Use 1 [place] in each nostril two times a day. - atenolol (TENORMIN) 50 mg tablet TAKE ONE-HALF TABLET BY MOUTH ONCE DAILY - Insulin [place], Disposable, (PEN NEEDLE) 32 gauge x 5/32 Use to inject insulin twice daily. - oxyCODONE myristate (XTAMPZA ER) 9 mg CSpT Take 9 mg by mouth twice daily. - Insulin [place], Disposable, (PEN NEEDLE) 32 gauge x 5/32 Use to inject insulin up to 8 times per day. - Blood-Glucose Meter 1 Device three times daily. Test Three times a day. - alcohol swabs Use with blood glucose test 3 times daily. Meds Comments as of 07/23/2019: Poor historian, did not bring list of medication. Unable to verify today 07/22/2019 Problem List As Of Date 10/31/2024 Noted Resolved DKA (diabetic ketoacidosis) (HCC) [E11.10] 10/26/2021 08/04/2022 Epilepsy (HCC) [G40.909] 10/26/2021 Chronic back pain [M54.9, G89.29] 10/26/2021 Gout [M10.9] 10/26/2021 HTN (hypertension) [I10] 10/26/2021 Hyperlipidemia, mixed [E78.2] 10/26/2021 Prostate cancer (HCC) [C61] 10/26/2021 Chronic bilateral low back pain with bilateral *12/08/2021 DDD (degenerative disc disease), lumbar [M51.36*12/08/2021 Type 2 diabetes mellitus without complication, *12/08/2021 Encounter Status:Closed by STEPHEN BERRY [facility] LINO WHEEL[facility][id number]) 1935 [facility] Date Time Provider Department 10/31/24 KEYLA SCHULTZ During your visit today, we recorded the following information about you: Stephen Berry LPN 10/31/2024 2:21 PM Signed [facility] Placed in provider's inbox for review. Route to [place] scanning Allergies As of Date: 10/31/2024 Noted Allergy Reaction DILAUDID (HYDROMORPHONE (BULK)) 03/08/2017 1 - Mental Status Change PENICILLIN 01/14/2017 16 - Unknown TORADOL (KETOROLAC) 01/14/2017 9 - Itching Date Reviewed: 03/15/2024 Reviewed by: Delia Chaves LPN - Fully Assessed Reason for Visit: Received Outside Medical Records [3576] Cmt: Admission to [facility] 10/30/24 Prescriptions as of 10/31/2024 - allopurinol (ZYLOPRIM) 300 mg tablet TAKE 1 TABLET BY MOUTH ONCE DAILY - blood sugar diagnostic test strip Use with blood glucose test 3 times daily. - tamsulosin (FLOMAX) 0.4 mg TAKE 1 CAPSULE BY MOUTH ONCE DAILY - escitalopram oxalate (LEXAPRO) 5 mg tablet Take 1 tablet by mouth once daily. - SITagliptin phosphate (JANUVIA) 100 mg tablet Take 1 tablet by mouth once daily. - rosuvastatin (CRESTOR) 10 mg tablet TAKE 1 TABLET BY MOUTH ONCE DAILY - Lancets Use with blood glucose test 3 times daily. - insulin glargine (LANTUS SOLOSTAR U-100 INSULIN) 100 unit/mL (3 mL) INJECT 21 UNITS SUBCUTANEOUSLY EVERY MORNING - amitriptyline (ELAVIL) 25 mg tablet Take 25 mg by mouth daily at bedtime. - levETIRAcetam (KEPPRA) 500 mg tablet TAKE 1 TABLET BY MOUTH TWICE DAILY - gabapentin (NEURONTIN) 100 mg capsule Take 1 capsule by mouth two times a day for 30 days. - azelastine 0.1% nasal spray Use 1 [place] in each nostril two times a day. - atenolol (TENORMIN) 50 mg tablet TAKE ONE-HALF TABLET BY MOUTH ONCE DAILY - Insulin [place], Disposable, (PEN NEEDLE) 32 gauge x 5/32 Use to inject insulin twice daily. - oxyCODONE myristate (XTAMPZA ER) 9 mg CSpT Take 9 mg by mouth twice daily. - Insulin [place], Disposable, (PEN NEEDLE) 32 gauge x 5/32 Use to inject insulin up to 8 times per day. - Blood-Glucose Meter 1 Device three times daily. Test Three times a day. - alcohol swabs Use with blood glucose test 3 times daily. Meds Comments as of 07/23/2019: Poor historian, did not bring list of medication. Unable to verify today 07/22/2019 Problem List As Of Date 10/31/2024 Noted Resolved DKA (diabetic ketoacidosis) ([facility]) [E11.10] 10/26/2021 08/04/2022 Epilepsy (HCC) [G40.909] 10/26/2021 Chronic back pain [M54.9, G89.29] 10/26/2021 Gout [M10.9] 10/26/2021 HTN (hypertension) [I10] 10/26/2021 Hyperlipidemia, mixed [E78.2] 10/26/2021 Prostate cancer (HCC) [C61] 10/26/2021 Chronic bilateral low back pain with bilateral *12/08/2021 DDD (degenerative disc disease), lumbar [M51.36*12/08/2021 Type 2 diabetes mellitus without complication, *12/08/2021 Encounter Status:Closed by STEPHEN BERRY on 10/31/24 Normal [facility] Absolute neutrophil countOrd ered By: Dl Salazar on 10-30-2024 Neutrophils (Bld) [#/Vol] 6.9 10*3/uL 2.0-7.7 [facility] Anion gap in Serum or Plasma Ordered By: Dl Salazar on 10-30-2024 Anion gap [Moles/Vol] 12 mmol/L 11-29 [facility] BUN/creatinine ratioOrdered By: Dl Salazar on 10-30-2024 Urea nitrogen/Creatinine [Mass ratio] 13.9 mg/mg 05-06 [facility] Basic Metabolic Profile (BMP )on 10-30-2024 BUN/CRE 13.9 RATIO Normal 05-06 [facility] Comment on above: Performed By: #### L 501.080 #### [facility] [address] [place], [address] Calcium [Mass/Vol] 10.0 mg/dL Normal 7.6-11.0 [facility] Comment on above: Performed By: #### L 501.080 #### [facility] [address] [place], [address] Chloride [Moles/Vol] 101 mmol/L Normal 98-108 [facility] Comment on above: Performed By: #### L 501.080 #### [facility] [address] [place], [address] CO2 [Moles/Vol] 26.7 mmol/L Normal 21.0-32.0 [facility] Comment on above: Performed By: #### L 501.080 #### [facility] [address] [place], [address] Creatinine [Mass/Vol] 0.83 mg/dL Normal 0.70-1.20 [facility] Comment on above: Performed By: #### L 501.080 #### [facility] [address] [place], [address] ECRCL 65.35 ml/min Normal 50-250 [facility] Comment on above: Performed By: #### L 501.080 #### [facility] [address] [place], [address] GAP 12 Normal 5-15 [facility] Comment on above: Performed By: #### L 501.080 #### [facility] [address] [place], [address] GFR/1.73 sq M.predicted among non-blacks MDRD (S/P/Bld) [Vol rate/Area] 84 mL/min/{1.73_m2} Normal >60 [facility] Comment on above: Result Comment: mL/m in/1.73m2 CKD-EPI Creatinine Equation (2020) Performed By: #### L 501.080 #### [facility] [address] [place], [address] Glucose [Mass/Vol] 151 mg/dL High 70-99 [facility] Comment on above: Performed By: #### L 501.080 #### [facility] [address] [place], [address] Potassium [Moles/Vol] 4.1 mmol/L Normal 3.3-5.1 [facility] Comment on above: Performed By: #### L 501.080 #### [facility] [address] [place], [address] Sodium [Moles/Vol] 140 mmol/L Normal 133-145 [facility] Comment on above: Performed By: #### L 501.080 #### [facility] [address] [place], [address] Urea nitrogen [Mass/Vol] 12 mg/dL Normal 4-19 [facility] Comment on above: Performed By: #### L 501.080 #### [facility] [address] [place], [address] Basophil percentageOrdered B y: Dl Salazar on 10-30-2024 Basophils/100 WBC (Bld) 0.4 % 0-1 [facility] Bedside Glucoseon 10-30-2024 FINGERSTICK GLU 166 mg/dL High 74-106 [facility] Comment on above: Result Comment: TYRONE GEMENT OF PATIENT CARE PER NURSING PROTOCOL Performed By: #### L 501.080 #### [facility] [address] [place], [address] FINGERSTICK GLU 147 mg/dL High 74-106 [facility] Comment on above: Result Comment: TYRONE GEMENT OF PATIENT CARE PER NURSING PROTOCOL Performed By: #### L 501.080 #### [facility] [address] [place], [address] Bilirubin Test strip Ql (U)O rdered By: Dl Salazar on 10-30-2024 Bilirubin Ql (U) 3 mg/dL High Negative [facility] Comment on above: COLOR OF URINE MAY A FFECT DIPSTICK RESULTS. CBC W/Diff, Automatedon 10-16 Absolute Lymph 1.24 X10 3/uL Normal 0.83-4.51 [facility] Comment on above: Performed By: #### L 501.080 #### [facility] [address] [place], [address] Absolute Neut 6.9 X10 3/uL Normal 2.0-7.7 [facility] Comment on above: Performed By: #### L 501.080 #### [facility] [address] [place], [address] Basophils/100 WBC (Bld) 0.4 % Normal 0-1 [facility] Comment on above: Performed By: #### L 501.080 #### [facility] [address] [place], [address] Eosinophils/100 WBC (Bld) 0.8 % Normal 0-5 [facility] Comment on above: Performed By: #### L 501.080 #### [facility] [address] [place], [address] Erythrocyte distribution width (RBC) [Ratio] 14.3 % Normal 11.6-14.6 [facility] Comment on above: Performed By: #### L 501.080 #### [facility] [address] [place], [address] Hematocrit (Bld) [Volume fraction] 43.4 % Normal 40-54 [facility] Comment on above: Performed By: #### L 501.080 #### [facility] [address] [place], [address] Hemoglobin (Bld) [Mass/Vol] 14.4 g/dL Normal 13.0-16.5 [facility] Comment on above: Performed By: #### L 501.080 #### [facility] [address] [place], [address] IG% 0.300 Normal 0.0-0.9 [facility] Comment on above: Result Comment: IG% - Immature Granulocytes (promyelocytes, myelocytes and metamyelocytes) > 1% indicates that a LEFT SHIFT is Present. Performed By: #### L 501.080 #### [facility] [address] [place], [address] Lymphocytes/100 WBC (Bld) 13.9 % Low 19-41 [facility] Comment on above: Performed By: #### L 501.080 #### [facility] [address] [place], [address] MCH (RBC) [Entitic mass] 31.0 pg Normal 27.0-32.0 [facility] Comment on above: Performed By: #### L 501.080 #### [facility] [address] [place], [address] MCHC (RBC) [Mass/Vol] 33.2 g/dL Normal 32-36 [facility] Comment on above: Performed By: #### L 501.080 #### [facility] [address] [place], [address] MCV (RBC) [Entitic vol] 93.3 fL Normal 80-94 [facility] Comment on above: Performed By: #### L 501.080 #### [facility] [address] [place], [address] Monocytes/100 WBC (Bld) 7.0 % Normal 0-10 [facility] Comment on above: Performed By: #### L 501.080 #### [facility] [address] [place], [address] Neutrophils/100 WBC (Bld) 77.6 % High 47-70 [facility] Comment on above: Performed By: #### L 501.080 #### [facility] [address] [place], [address] Nucleated RBC (Bld) [#/Vol] 0 10*3/uL Normal 0-5 [facility] Comment on above: Performed By: #### L 501.080 #### [facility] [address] [place], [address] Platelet mean volume (Bld) [Entitic vol] 9.5 fL Normal 6.2-12.0 [facility] Comment on above: Performed By: #### L 501.080 #### [facility] [address] [place], [address] Platelets (Bld) [#/Vol] 304 10*3/uL Normal 150-450 [facility] Comment on above: Performed By: #### L 501.080 #### [facility] [address] [place], [address] RBC (Bld) [#/Vol] 4.65 10*6/uL Normal 4.6-6.2 [facility] Comment on above: Performed By: #### L 501.080 #### [facility] [address] [place], [address] RDW SD 48.4 fl High 35.1-43.9 [facility] Comment on above: Performed By: #### L 501.080 #### [facility] [address] [place], [address] WBC (Bld) [#/Vol] 8.9 10*3/uL Normal 4.4-11.0 [facility] Comment on above: Performed By: #### L 501.080 #### [facility] [address] [place], [address] CNPRomana 10-30-2024 [facility] Telephone (LEANN) -- LINO WHEELER ([id number]) 1935 M Date Time Provider Department 10/30/24 KEYLA SCHULTZ During your visit today, we recorded the following information about you: Stephen Berry LPN 10/30/2024 12:17 PM Signed Received ED visit summary for fall from [facility]. Placed in provider's inbox for review. Route to MA scanning Allergies As of Date: 10/30/2024 Noted Allergy Reaction DILAUDID (HYDROMORPHONE (BULK)) 03/08/2017 1 - Mental Status Change PENICILLIN 01/14/2017 16 - Unknown TORADOL (KETOROLAC) 01/14/2017 9 - Itching Date Reviewed: 03/15/2024 Reviewed by: Delia Chaves LPN - Fully Assessed Reason for Visit: Received Outside Medical Records [[id number]] Cmt: [facility] ED Prescriptions as of 10/30/2024 - allopurinol (ZYLOPRIM) 300 mg tablet TAKE 1 TABLET BY MOUTH ONCE DAILY - blood sugar diagnostic test strip Use with blood glucose test 3 times daily. - tamsulosin (FLOMAX) 0.4 mg TAKE 1 CAPSULE BY MOUTH ONCE DAILY - escitalopram oxalate (LEXAPRO) 5 mg tablet Take 1 tablet by mouth once daily. - SITagliptin phosphate (JANUVIA) 100 mg tablet Take 1 tablet by mouth once daily. - rosuvastatin (CRESTOR) 10 mg tablet TAKE 1 TABLET BY MOUTH ONCE DAILY - Lancets Use with blood glucose test 3 times daily. - insulin glargine (LANTUS SOLOSTAR U-100 INSULIN) 100 unit/mL (3 mL) INJECT 21 UNITS SUBCUTANEOUSLY EVERY MORNING - amitriptyline (ELAVIL) 25 mg tablet Take 25 mg by mouth daily at bedtime. - levETIRAcetam (KEPPRA) 500 mg tablet TAKE 1 TABLET BY MOUTH TWICE DAILY - gabapentin (NEURONTIN) 100 mg capsule Take 1 capsule by mouth two times a day for 30 days. - azelastine 0.1% nasal spray Use 1 [place] in each nostril two times a day. - atenolol (TENORMIN) 50 mg tablet TAKE ONE-HALF TABLET BY MOUTH ONCE DAILY - Insulin [place], Disposable, (PEN NEEDLE) 32 gauge x 5/32 Use to inject insulin twice daily. - oxyCODONE myristate (XTAMPZA ER) 9 mg CSpT Take 9 mg by mouth twice daily. - Insulin [place], Disposable, (PEN NEEDLE) 32 gauge x 5/32 Use to inject insulin up to 8 times per day. - Blood-Glucose Meter 1 Device three times daily. Test Three times a day. - alcohol swabs Use with blood glucose test 3 times daily. Meds Comments as of 07/23/2019: Poor historian, did not bring list of medication. Unable to verify today 07/22/2019 Problem List As Of Date 10/30/2024 Noted Resolved DKA (diabetic ketoacidosis) (HCC) [E11.10] 10/26/2021 08/04/2022 Epilepsy (HCC) [G40.909] 10/26/2021 Chronic back pain [M54.9, G89.29] 10/26/2021 Gout [M10.9] 10/26/2021 HTN (hypertension) [I10] 10/26/2021 Hyperlipidemia, mixed [E78.2] 10/26/2021 Prostate cancer (HCC) [C61] 10/26/2021 Chronic bilateral low back pain with bilateral *12/08/2021 DDD (degenerative disc disease), lumbar [M51.36*12/08/2021 Type 2 diabetes mellitus without complication, *12/08/2021 Encounter Status:Closed by STEPHEN BERRY on 10/30/24 Normal [facility] Calcium oxalate crystals det ection in urine sediment by light microscopyOrdered By: Dl Salazar on 10-30-2024 Calcium oxalate crystals LM Ql (Urine sed) 1+ /hpf [facility] Carbon dioxide, total [Moles /volume] in Central venous bloodOrdered By: Dl Salazar on 10-30-2024 CO2 [Moles/Vol] 26.7 mmol/L 21.0-32.0 [facility] Chloride assayOrdered By: Chadwick Salazar on 10-30-2024 Chloride [Moles/Vol] 101 mmol/L 98-108 [facility] Emergency Department Summary on 10-30-2024 Emergency Department Summary [facility] Medical Records Department [address] [place] [address] Emergency Department Summary 10/30/24 MR#: [id number] Acct: [id number] Name: LINO WHEELER Rep #: [id number] : 1935 89 From: Dl Salazar MD PCP: Dr. Saulo Schultz MD Status:REG ER Location: ED HPI HPI - Fall History of Present Illness Chief Complaint: Fall Informant: patient and EMS Narrative Narrative: 89-year-old male presenting with debility that has been progressive, he had a fall last night due to his foot getting stuck under his bed when he tried to get into it, causing him to fall and hurt his low back. He has chronic low back pain, he has had surgery in his back, he sees Dr. Garnica for pain management where he gets injections and pain medications, he has spinal stenosis and he states he is legs have progressively been becoming weaker over the last couple months, the right side is always been worse than the left, along with some time sciatica pain shooting down his right side which has not been the case since last night, denies any numbness or saddle anesthesia. Over the last couple weeks he has had a little bit of urinary incontinence but he denies any bowel retention or incontinence or problems having bowel movements. He was here couple of weeks ago for a fall and similar injury to his low back, the providers and family were trying to encourage him to be placed in detention or assisted living, which is where his was just recently placed and it seems she was the primary dust collector attendant but the patient has been very resistant until now and states that he is not able to take care of himself and now he needs help and he needs to go to the same place his is at. Apparently, he is upset because someone called Adult Protective Services on him, presumably one of his children according to the patient. [facility] Medical History Failure to thrive History of diabetes mellitus, type II History of seizure disorder Gout Drooping eyelid Home Medications ???Medication ???Instructions ???Recorded ???Last Taken ???Type allopurinol 300 mg tablet 300 mg PO DAILY 10/15/24 Unknown H istory amitriptyline 25 mg tablet 25 mg PO DAILY 10/15/24 Unknown Hi story insulin glargine 100 unit/mL (3 unit subcut 10/15/24 Unknown Histo ry mL) subcutaneous pen (Lantus Solostar U-100 Insulin) Held on 10/17/24. Instructions: Hold if glucose less than 130 mg/dl levetiracetam 500 mg tablet 500 mg PO BID 10/15/24 Unknown His tory oxycodone myristate 18 mg capsule 18 mg PO BID 10/15/24 Unknown His tory sprinkle extended release 12hr(DON'T CRUSH) (Xtampza ER) rivaroxaban 20 mg tablet (Xarelto) 20 mg PO DAILY 10/15/24 Unknown History sitagliptin phosphate 100 mg 100 mg PO DAILY 10/15/24 Unknown H istory tablet (Januvia) tamsulosin 0.4 mg capsule 0.4 mg PO DAILY 10/15/24 Unknown H istory hydroxyzine pamoate 25 mg capsule 25 mg PO QHS PRN insomnia #30 09/11 Unknown Rx CAPSULES oxymetazoline 0.05 % nasal spray 2 spray intranasal BID PRN Nasal 0 10/17/24 Unknown Rx (12 Hour Nasal Relief [place]) congestion 30 days #0 mL sennosides 8.6 mg-docusate sodium 2 tab PO BID #0 tabs 10/17/24 Unk nown Rx 50 mg tablet (Stimulant Laxative Plus) insulin lispro 100 unit/mL See Protocol subcut TIDCM #15 mL 0 10/18/24 Unknown Rx subcutaneous half-unit pen (Humalog Andrews KwikPen (U-100)) rosuvastatin 10 mg tablet 10 mg PO DAILY 1 month #30 tabs Unknown Rx Allergy/AdvReac Type Severity Reaction Status Date / Time Penicillins Allergy Mild Hives Verified 10/30/24 09:38 hydromorphone (From Dilaudid) Allergy Hallucinati Verified 10/30/24 09:38 ons ketorolac (From Toradol) Allergy Itching Verified 10/30/24 09:38 Family History Father Tuberculosis Surgical History History of back surgery Hx of laminectomy Social History household members: spouse housing: house Smoking Status: Never smoker Smokeless tobacco user: chewing tobacco alcohol intake: never what type of physical activity do you participate in: none do you feel safe at home: Yes ROS ROS ED Constitutional Constitutional ED: Denies chills or fever(s) Eyes Eyes: Reports other Details: Chronically drooping right eyelid ; Denies change in vision or diplopia ENT ENT ED: Denies rhinorrhea or sore throat Cardiovascular Cardiovascular: Denies chest pain or palpitations Respiratory/Chest Respiratory/Chest: Denies cough or dyspnea Gastrointestinal Gastrointestinal: Denies abdominal pain, diarrhea, nausea or vomiting Genitourinary Doris (more content not included)... Normal [facility] Eosinophil percentageOrdered By: Dl Salazar on 10-30-2024 Eosinophils/100 WBC (Bld) 0.8 % 0-5 [facility] Erythrocyte distribution wid th (RBC) [Ratio]Ordered By: Dl Salazar on 10-30-2024 Erythrocyte distribution width (RBC) [Entitic vol] 48.4 fL High 35.1-43.9 [facility] Erythrocyte distribution wid th ratioOrdered By: Dl Salazar on 10-30-2024 Erythrocyte distribution width (RBC) [Ratio] 14.3 % 11.6-14.6 [facility] Estimation of creatinine francisco aranceOrdered By: Dl Salazar on 10-30-2024 Estimated Creatinine Clearance Calc 65.35 ml/min 50-250 [facility] GFR/1.73 sq M.predicted shane g non-blacks MDRD (S/P/Bld) [Vol rate/Area]Ordered By: Dl Salazar on 10-30-2024 Estimated GFR (MDRD) Non-Af Amer 84 >60 [facility] Comment on above: mL/min/1.73m2 CKD-EP I Creatinine Equation (2020) H AND P Exam - [facility] 10-30-2024 H&P Exam - Hospitalist [facility] Medical Records Department [address] [place] [address] H P Exam - Hospitalist 10/30/24 1118 MR#: [id number] Acct: [id number] Name: LINO WHEELER Rep #: [id number] : 1935 89 From: Mindi Nelson MD PCP: Dr. Saulo Schultz MD Status:ADM ALEX Location: [place] [address] HPI - General General Date of Admission: 10/30/24 Date of Service: 10/30/24 Chief Complaint: failure to thrive HPI Narrative LINO WHEELER, is a 89 M with a PMH as outlined who was admitted via the ED On 10/30/2024 with a complaint of failure to thrive. Patient was recently admitted for mechanical fall and injury to his lower back and counseled that he should go to a detention facility but patient refused. His is in a SNF, and he has been alone at home but has been unable to care for himself. He sees Dr. Encinas for pain management and had been getting injections and pain medications for spinal stenosis. However he has been getting weaker at home and able to care for himself. Family therefore brought him into the ED today for possible placement. He denies any fever, chills, palpitations, dizziness, nausea vomiting or any other symptoms. Review of systems otherwise negative. Vitals in the ED were temp of 98F, NC of 79, BP of 122/110, RR of 16 and he was saturating at 95% on room air. CBC was unremarkable, and BMP was also unremarkable. Lumbar spine xray showed minimal loss of height of the superior endplate of the L1 vertebrae. He is being admitted to be managed for failure to thrive and debility. [facility] Medical History Failure to thrive History of diabetes mellitus, type II History of seizure disorder Gout Drooping eyelid Home Medications ???Medication ???Instructions ???Recorded ???Last Taken ???Type allopurinol 300 mg tablet 300 mg PO DAILY 10/15/24 Unknown H istory amitriptyline 25 mg tablet 25 mg PO DAILY 10/15/24 Unknown Hi story insulin glargine 100 unit/mL (3 unit subcut 10/15/24 Unknown Histo ry mL) subcutaneous pen (Lantus Solostar U-100 Insulin) Held on 10/17/24. Instructions: Hold if glucose less than 130 mg/dl levetiracetam 500 mg tablet 500 mg PO BID 10/15/24 Unknown His tory oxycodone myristate 18 mg capsule 18 mg PO BID 10/15/24 Unknown His tory sprinkle extended release 12hr(DON'T CRUSH) (Xtampza ER) rivaroxaban 20 mg tablet (Xarelto) 20 mg PO DAILY 10/15/24 Unknown History sitagliptin phosphate 100 mg 100 mg PO DAILY 10/15/24 Unknown H istory tablet (Januvia) tamsulosin 0.4 mg capsule 0.4 mg PO DAILY 10/15/24 Unknown H istory hydroxyzine pamoate 25 mg capsule 25 mg PO QHS PRN insomnia #30 09/11 Unknown Rx CAPSULES oxymetazoline 0.05 % nasal spray 2 spray intranasal BID PRN Nasal 0 10/17/24 Unknown Rx (12 Hour Nasal Relief [place]) congestion 30 days #0 mL sennosides 8.6 mg-docusate sodium 2 tab PO BID #0 tabs 10/17/24 Unk nown Rx 50 mg tablet (Stimulant Laxative Plus) insulin lispro 100 unit/mL See Protocol subcut TIDCM #15 mL 0 10/18/24 Unknown Rx subcutaneous half-unit pen (Humalog Andrews KwikPen (U-100)) rosuvastatin 10 mg tablet 10 mg PO DAILY 1 month #30 tabs Unknown Rx Allergy/AdvReac Type Severity Reaction Status Date / Time Penicillins Allergy Mild Hives Verified 10/30/24 09:38 hydromorphone (From Dilaudid) Allergy Hallucinati Verified 10/30/24 09:38 ons ketorolac (From Toradol) Allergy Itching Verified 10/30/24 09:38 Family History Father Tuberculosis Surgical History History of back surgery Hx of laminectomy Social History household members: spouse housing: house Smoking Status: Never smoker Smokeless tobacco user: chewing tobacco alcohol intake: never what type of physical activity do you participate in: none do you feel safe at home: Yes ROS Constitutional Constitutional: Reports fatigue and weakness; Denies anorexia, chills or fever(s) Eyes Eyes: Denies change in vision ENT HEENT: Denies dysphagia or headache(s) Cardiovascular Cardiovascular: Denies claudication, dyspnea on exertion, lightheadedness, orthopnea, palpitations, paroxysmal nocturnal dyspnea, rapid heart rate or syncope Gastrointestinal Gastrointestinal: Denies abdominal pain, constipation, diarrhea, nausea or vomiting Genitourinary Genitourinary: Denies dysuria Musculoskeletal Musculoskeletal: Reports back pain and myalgias; Denies arthralgias or joint pain Neurologic Neurologic: Denies confusion, dizziness, focal weakness, headache(s), numbness, paresthesias, seizure-like activity, seizures or syncope Psychiatric Psychiatri (more content not included)... Normal [facility] Hematocrit Auto (Bld) [Volum e fraction]Ordered By: Dl Salazar on 10-30-2024 Hematocrit (Bld) [Volume fraction] 43.4 % 40-54 [facility] Hemoglobin measurementOrdere d By: Dl Salazar on 10-30-2024 Hemoglobin (Bld) [Mass/Vol] 14.4 g/dL 13.0-16.5 [facility] Hyaline casts LM.LPF (Urine sed) [#/Area]Ordered By: Dl Salazar on 10-30-2024 Hyaline casts (Urine sed) [#/Area] 25 /[LPF] 0-5 [facility] Immature granulocytes/100 WB C Auto (Bld)Ordered By: Dl Salazar on 10-30-2024 Immature granulocytes/100 WBC (Bld) 0.300 % 0.0-0.9 [facility] Comment on above: IG% - Immature Granu locytes (promyelocytes, myelocytes and metamyelocytes) > 1% indicates that a LEFT SHIFT is Present. Ketones Test strip Ql (U)Ord ered By: Dl Salazar on 10-30-2024 Ketones Ql (U) 5 mg/dl High Negative [facility] Lumbar Spine 2 or 3 Viewson 10-30-2024 Lumbar Spine 2 or 3 Views [facility] Imaging Services [address] [place], [place] [id number] Lumbar Spine 2 or 3 Views MR#: [id number] Acct: [id number] Name: LION WHEELER Rep #: [id number] : 1935 M 89 From: Kwaku lilly MD PCP: Dr. Saulo Schultz MD Status: REG ER Study: Lumbar Spine 2 or 3 Views Date of Exam: Exam# [id number] Ordering Dr: Dl Salazar MD PROCEDURE: LUMBAR SPINE 2 OR 3 VIEWS 10/30/2024 REASON FOR EXAM: Low back pain following recent falls. TECHNIQUE: 3 view(s) of the lumbar spine COMPARISON: None FINDINGS: Vertebrae: Spondylosis. Minimal loss of height of the superior endplate of the L1 vertebrae. Discs: Advanced multilevel disc space narrowing with endplate osteophytes. Alignment: Mild dextroscoliosis. Other: Large amount of fecal material is seen in the colon. There is gaseous distention of the stomach. RAD/Lumbar Spine 2 or 3 Views IMPRESSION: ADVANCED DEGENERATIVE CHANGES OF THE LUMBAR SPINE. Minimal loss of height of the superior endplate of the L1 vertebrae. Reading Location: [place] [address] CC: Dr. Dl Salazar MD; Dr. Saulo Schultz MD Bisque Placer: Signed Normal [facility] Lymphocytes Auto (Unsp spec) [#/Vol]Ordered By: Dl Salazar on 10-30-2024 Lymphocytes (Bld) [#/Vol] 1.24 10*3/uL 0.83-4.51 [facility] Lymphocytes/100 WBC Auto (Un sp spec)Ordered By: Dl Salazar on 10-30-2024 Lymphocytes/100 WBC (Bld) 13.9 % Low 19-41 [facility] MCV (mean corpuscular volume ) determinationOrdered By: Dl Salazar on 10-30-2024 MCV (RBC) [Entitic vol] 93.3 fL 80-94 [facility] Mean corpuscular hemoglobin (MCH) determinationOrdered By: Dl Salazar on 10-30-2024 MCH (RBC) [Entitic mass] 31.0 pg 27.0-32.0 [facility] Mean corpuscular hemoglobin concentration (MCHC) determinationOrdered By: Dl Salazar on 10-30-2024 MCHC (RBC) [Mass/Vol] 33.2 g/dL 32-36 [facility] Mean platelet volume determi nationOrdered By: Dl Salazar on 10-30-2024 Platelet mean volume (Bld) [Entitic vol] 9.5 fL 6.2-12.0 [facility] Microscopic analysis of urin e for red blood cells (RBC)Ordered By: Dl Salazar on 10-30-2024 Microscopic analysis of urine for red blood cells (RBC) 0 SEEN /hpf 0-5 [facility] Monocyte percentageOrdered B y: Dl Salazar on 10-30-2024 Monocytes/100 WBC (Bld) 7.0 % 0-10 [facility] Mucus LM Ql (Urine sed)Order ed By: Dl Salazar on 10-30-2024 Mucus Ql (Urine sed) 1+ /hpf [facility] Neutrophil percentageOrdered By: Dl Salazar on 10-30-2024 Neutrophils/100 WBC (Bld) 77.6 % High 47-70 [facility] Nitrite Test strip Ql (U)Ord ered By: Dl Salazar on 10-30-2024 Nitrite Ql (U) Negative Negative [facility] Nucleated red blood cell per centageOrdered By: Dl Salazar on 10-30-2024 Nucleated RBC/100 WBC (Bld) [Ratio] 0 % 0-5 [facility] Platelet countOrdered By: Chadwick Salazar on 10-30-2024 Platelets (Bld) [#/Vol] 304 10*3/uL 150-450 [facility] Potassium (Unsp spec) [Mass/ Vol]Ordered By: Dl Salazar on 10-30-2024 Potassium [Moles/Vol] 4.1 mmol/L 3.3-5.1 [facility] Protein Test strip Ql (U)Ord ered By: Dl Salazar on 10-30-2024 Protein Ql (U) TNP [facility] Comment on above: Test not performedSE E URINE CHEMISTRY PROTIEN ORDER FOR THIS RESULT.Previous reported result: TNP mg/dlEdited by: ELI on 11/01/24:1025 AMENDED REPORT 11/01/24 1025 PROT DIPSTX previously reported as: Test not performed mg/dl RBC Auto (Bld) [#/Vol]Ordere d By: Dl Salazar on 10-30-2024 RBC (Bld) [#/Vol] 4.65 10*6/uL 4.6-6.2 [facility] Serum creatinine measurement (mass/volume)Ordered By: Dl Salazar on 10-30-2024 Creatinine [Mass/Vol] 0.83 mg/dL 0.70-1.20 [facility] Serum glucose measurement (m ass/volume)Ordered By: Dl Salazar on 10-30-2024 Glucose [Mass/Vol] 151 mg/dL High 70-99 [facility] Serum or plasma calcium jose urement (mass/volume)Ordered By: Dl Salazar on 10-30-2024 Calcium [Mass/Vol] 10.0 mg/dL 7.6-11.0 [facility] Serum or plasma urea nitroge n measurement (mass/volume)Ordered By: Dl Salazar on 10-30-2024 Urea nitrogen [Mass/Vol] 12 mg/dL 4-19 [facility] Sodium levelOrdered By: Farooq Salazar on 10-30-2024 Sodium [Moles/Vol] 140 mmol/L 133-145 [facility] Squamous epithelial cells de tection in urine sediment by light microscopyOrdered By: Dl Salazar on 10-30-2024 Epithelial cells.squamous LM Ql (Urine sed) 0 SEEN /hpf 0-5 [facility] Urine clarityOrdered By: Thom Salazar on 10-30-2024 Clarity (U) Clear Clear [facility] Urine coarse granular cast d etectionOrdered By: Dl Salazar on 10-30-2024 Coarse Granular Casts LM Ql (Urine sed) 0-5 SEEN /lpf 0-5 /lpf [facility] Urine color determinationOrd ered By: Dl Salazar on 10-30-2024 Color (U) Yellow Yellow [facility] Urine glucose detectionOrder ed By: Dl Salazar on 10-30-2024 Glucose Ql (U) Normal mg/dl Normal [facility] Urine leukocyte esterase det ection by dipstickOrdered By: Dl Salazar 10-30-2024 Leukocyte esterase Test strip Ql (U) 25 /ul High Negative [facility] Urine pHOrdered By: Dl Salazar on 10-30-2024 pH (U) 6.0 [pH] 5.0 - 8.0 [facility] Urine sediment bacteria coun t by microscopy (number/high power field)Ordered By: Dl Salazar on 10-30-2024 Bacteria LM.HPF (Urine sed) [#/Area] 0 /[HPF] None Seen [facility] Urine specific gravity measu rementOrdered By: Dl Martin on 10-30-2024 Specific gravity (U) [Rel density] 1.020 1.002-1.030 [facility] Urine urobilinogen measureme ntOrdered By: Dl Salazar on 10-30-2024 Urobilinogen Ql (U) 4 mg/dl High Normal [facility] White blood cell (WBC) count Ordered By: Dl Martin on 10-30-2024 WBC (Bld) [#/Vol] 8.9 10*3/uL 4.4-11.0 [facility] White blood cell countOrdere d By: Dl Salazar on 10-30-2024 White blood cell count 0-5 SEEN /hpf 0-5 [facility] CNPNon 10-26-2024 CNPN Telephone (FPWADS) -- LINO WHEELER ([id number]) 1935 [facility] Date Time Provider Department 10/26/24 KEYLA SCHULTZ FPWAKULWINDER During your visit today, we recorded the following information about you: Layla Johnson, RN 10/26/2024 1:44 PM Addendum ALEXIS Chicas from [facility] on nurse line. Out to visit patient for initial assessment, noted to have elevated HR. Patient reports SOB in the morning that dissipates Asymptomatic; denies chest pain, heaviness, numbness/tingling HR 115-120 BP 138/86 RR 18 O2 96-97% Temp 96.6 Patient had to cancel PCP appointment for today, d/t transportation [employer] asking for updated status on home care orders detention, PT, OT, SW. Call back number [phone] Please advise Stephen Berry LPN 10/29/2024 11:07 AM Signed Called and left vm on confidential line that orders were faxed. Routing to pcp regarding pt symptoms. Allergies As of Date: 10/26/2024 Noted Allergy Reaction DILAUDID (HYDROMORPHONE (BULK)) 03/08/2017 1 - Mental Status Change PENICILLIN 01/14/2017 16 - Unknown TORADOL (KETOROLAC) 01/14/2017 9 - Itching Date Reviewed: 03/15/2024 Reviewed by: Delia Chaves LPN - Fully Assessed Reason for Visit: Patient Update [1234] Prescriptions as of 10/29/2024 - allopurinol (ZYLOPRIM) 300 mg tablet TAKE 1 TABLET BY MOUTH ONCE DAILY - blood sugar diagnostic test strip Use with blood glucose test 3 times daily. - tamsulosin (FLOMAX) 0.4 mg TAKE 1 CAPSULE BY MOUTH ONCE DAILY - escitalopram oxalate (LEXAPRO) 5 mg tablet Take 1 tablet by mouth once daily. - SITagliptin phosphate (JANUVIA) 100 mg tablet Take 1 tablet by mouth once daily. - rosuvastatin (CRESTOR) 10 mg tablet TAKE 1 TABLET BY MOUTH ONCE DAILY - Lancets Use with blood glucose test 3 times daily. - insulin glargine (LANTUS SOLOSTAR U-100 INSULIN) 100 unit/mL (3 mL) INJECT 21 UNITS SUBCUTANEOUSLY EVERY MORNING - amitriptyline (ELAVIL) 25 mg tablet Take 25 mg by mouth daily at bedtime. - levETIRAcetam (KEPPRA) 500 mg tablet TAKE 1 TABLET BY MOUTH TWICE DAILY - gabapentin (NEURONTIN) 100 mg capsule Take 1 capsule by mouth two times a day for 30 days. - azelastine 0.1% nasal spray Use 1 [place] in each nostril two times a day. - atenolol (TENORMIN) 50 mg tablet TAKE ONE-HALF TABLET BY MOUTH ONCE DAILY - Insulin [place], Disposable, (PEN NEEDLE) 32 gauge x 5/32 Use to inject insulin twice daily. - oxyCODONE myristate (XTAMPZA ER) 9 mg CSpT Take 9 mg by mouth twice daily. - Insulin [place], Disposable, (PEN NEEDLE) 32 gauge x 5/32 Use to inject insulin up to 8 times per day. - Blood-Glucose Meter 1 Device three times daily. Test Three times a day. - alcohol swabs Use with blood glucose test 3 times daily. Meds Comments as of 07/23/2019: Poor historian, did not bring list of medication. Unable to verify today 07/22/2019 Problem List As Of Date 10/26/2024 Noted Resolved DKA (diabetic ketoacidosis) (HCC) [E11.10] 10/26/2021 08/04/2022 Epilepsy (HCC) [G40.909] 10/26/2021 Chronic back pain [M54.9, G89.29] 10/26/2021 Gout [M10.9] 10/26/2021 HTN (hypertension) [I10] 10/26/2021 Hyperlipidemia, mixed [E78.2] 10/26/2021 Prostate cancer (HCC) [C61] 10/26/2021 Chronic bilateral low back pain with bilateral *12/08/2021 DDD (degenerative disc disease), lumbar [M51.36*12/08/2021 Type 2 diabetes mellitus without complication, *12/08/2021 Encounter Status:Closed by LAYLA JOHNSON on 10/26/24 [facility] Isaiah 10-23-2024 CNPN Telephone (FPWADS) -- LINO WHEELER ([id number]) 1935 M Date Time Provider Department 10/23/24 KEYLA SCHULTZ During your visit today, we recorded the following information about you: [place]st Janet Thomson 10/23/2024 4:05 PM Romana Fernandez is a patient of Keyla Schultz MD today Nurse Violet from [facility] called to report she did evaluation today for starting Home Care. They are looking for: detention, PT, OT, SW. Per Violet they will fax plan of care. Senior Care Frequency: 3 times per week for 2 weeks 2 times per week for 3 weeks 1 time per week for 4 weeks Discharge Medications: from [facility] stated: Xarelto 20 mg, once daily. Patient stated he is not taking, does not have at home, will not take. He is supposed to be on insulin 3 times a day; he cannot do this himself. Per Nurse, they only have caregivers in the evening. Manager Reporting consult can help with resources since his spouse is in a nursing facility. BS today: 126 Per Violet, their is one another medication on discharge instructions from [facility] but she did not have the name. May want to review [facility] discharge. Patient has been identified by name and birthdate. Duration of symptoms: N/A Was an appointment scheduled: No Closing statement: Results or non-symptom based questions: Thank you for calling [facility], your call will be returned within the next business day. Keyla Ornelas MD 10/26/2024 9:09 AM Signed OK to schedule. If he can manage once a day insulin, or preferably 2x per day, we can switch him to a 70/30 short/ long combination dose to make it easier Please advise, if able to take only once daily. What time is he able to consistently take it. MD Pat Wooten Cheralyn, LPN 11/01/2024 1:48 PM Signed Called pt phone number, no answer VM box not set up. Called and spoke with pt Rahda. [facility]. She states pt is admitted to [facility] currently and will be [facility] at the [facility] post discharge. She is not sure if medications will be changed during this time. Allergies As of Date: 10/23/2024 Noted Allergy Reaction DILAUDID (HYDROMORPHONE (BULK)) 03/08/2017 1 - Mental Status Change PENICILLIN 01/14/2017 16 - Unknown TORADOL (KETOROLAC) 01/14/2017 9 - Itching Date Reviewed: 03/15/2024 Reviewed by: Delia Chaves LPN - Fully Assessed Reason for Visit: Home Care [4073] Prescriptions as of 12/08/2024 - allopurinol (ZYLOPRIM) 300 mg tablet TAKE 1 TABLET BY MOUTH ONCE DAILY - blood sugar diagnostic test strip Use with blood glucose test 3 times daily. - tamsulosin (FLOMAX) 0.4 mg TAKE 1 CAPSULE BY MOUTH ONCE DAILY - escitalopram oxalate (LEXAPRO) 5 mg tablet Take 1 tablet by mouth once daily. - SITagliptin phosphate (JANUVIA) 100 mg tablet Take 1 tablet by mouth once daily. - rosuvastatin (CRESTOR) 10 mg tablet TAKE 1 TABLET BY MOUTH ONCE DAILY - Lancets Use with blood glucose test 3 times daily. - insulin glargine (LANTUS SOLOSTAR U-100 INSULIN) 100 unit/mL (3 mL) INJECT 21 UNITS SUBCUTANEOUSLY EVERY MORNING - amitriptyline (ELAVIL) 25 mg tablet Take 25 mg by mouth daily at bedtime. - levETIRAcetam (KEPPRA) 500 mg tablet TAKE 1 TABLET BY MOUTH TWICE DAILY - gabapentin (NEURONTIN) 100 mg capsule Take 1 capsule by mouth two times a day for 30 days. - azelastine 0.1% nasal spray Use 1 [place] in each nostril two times a day. - atenolol (TENORMIN) 50 mg tablet TAKE ONE-HALF TABLET BY MOUTH ONCE DAILY - Insulin [place], Disposable, (PEN NEEDLE) 32 gauge x 5/32 Use to inject insulin twice daily. - oxyCODONE myristate (XTAMPZA ER) 9 mg CSpT Take 9 mg by mouth twice daily. - Insulin [place], Disposable, (PEN NEEDLE) 32 gauge x 5/32 Use to inject insulin up to 8 times per day. - Blood-Glucose Meter 1 Device three times daily. Test Three times a day. - alcohol swabs Use with blood glucose test 3 times daily. Meds Comments as of 07/23/2019: Poor historian, did not bring list of medication. Unable to verify today 07/22/2019 Problem List As Of Date 10/23/2024 Noted Resolved DKA (diabetic ketoacidosis) (HCC) [E11.10] 10/26/2021 08/04/2022 Epilepsy (HCC) [G40.909] 10/26/2021 Chronic back pain [M54.9, G89.29] 10/26/2021 Gout [M10.9] 10/26/2021 HTN (hypertension) [I10] 10/26/2021 Hyperlipidemia, mixed [E78.2] 10/26/2021 Prostate cancer (HCC) [C61] 10/26/2021 Chronic bilateral low back pain with bilateral *12/08/2021 DDD (degenerative disc disease), lumbar [M51.36*12/08/2021 Type 2 diabetes mellitus without complication, *12/08/2021 Encounter Status:Closed by FIELDING JANET THOMSON on 12/08/24 Normal [facility] CNPRomana 10-19-2024 CNPN Telephone (FPWADS) -- LINO WHEELER ([id number]) 1935 M Date Time Provider Department 10/19/24 KEYLA SCHULTZ FPWADS During your visit today, we recorded the following information about you: Delia Chaves LPN 10/19/2024 12:47 PM Signed Received 10/19/2024 from [facility]. Placed in provider's inbox for review. Route to [place] for scanning. Failure to thrive. Allergies As of Date: 10/19/2024 Noted Allergy Reaction DILAUDID (HYDROMORPHONE (BULK)) 03/08/2017 1 - Mental Status Change PENICILLIN 01/14/2017 16 - Unknown TORADOL (KETOROLAC) 01/14/2017 9 - Itching Date Reviewed: 03/15/2024 Reviewed by: Delia Chaves LPN - Fully Assessed Reason for Visit: Received Outside Medical Records [[id number]] Cmt: [facility] ER Discharge and transfer of care to SNF 10/18/2024 Prescriptions as of 10/19/2024 - allopurinol (ZYLOPRIM) 300 mg tablet TAKE 1 TABLET BY MOUTH ONCE DAILY - blood sugar diagnostic test strip Use with blood glucose test 3 times daily. - tamsulosin (FLOMAX) 0.4 mg TAKE 1 CAPSULE BY MOUTH ONCE DAILY - escitalopram oxalate (LEXAPRO) 5 mg tablet Take 1 tablet by mouth once daily. - SITagliptin phosphate (JANUVIA) 100 mg tablet Take 1 tablet by mouth once daily. - rosuvastatin (CRESTOR) 10 mg tablet TAKE 1 TABLET BY MOUTH ONCE DAILY - Lancets Use with blood glucose test 3 times daily. - insulin glargine (LANTUS SOLOSTAR U-100 INSULIN) 100 unit/mL (3 mL) INJECT 21 UNITS SUBCUTANEOUSLY EVERY MORNING - amitriptyline (ELAVIL) 25 mg tablet Take 25 mg by mouth daily at bedtime. - levETIRAcetam (KEPPRA) 500 mg tablet TAKE 1 TABLET BY MOUTH TWICE DAILY - gabapentin (NEURONTIN) 100 mg capsule Take 1 capsule by mouth two times a day for 30 days. - azelastine 0.1% nasal spray Use 1 [place] in each nostril two times a day. - atenolol (TENORMIN) 50 mg tablet TAKE ONE-HALF TABLET BY MOUTH ONCE DAILY - Insulin [place], Disposable, (PEN NEEDLE) 32 gauge x 5/32 Use to inject insulin twice daily. - oxyCODONE myristate (XTAMPZA ER) 9 mg CSpT Take 9 mg by mouth twice daily. - Insulin [place], Disposable, (PEN NEEDLE) 32 gauge x 5/32 Use to inject insulin up to 8 times per day. - Blood-Glucose Meter 1 Device three times daily. Test Three times a day. - alcohol swabs Use with blood glucose test 3 times daily. Meds Comments as of 07/23/2019: Poor historian, did not bring list of medication. Unable to verify today 07/22/2019 Problem List As Of Date 10/19/2024 Noted Resolved DKA (diabetic ketoacidosis) (HCC) [E11.10] 10/26/2021 08/04/2022 Epilepsy (HCC) [G40.909] 10/26/2021 Chronic back pain [M54.9, G89.29] 10/26/2021 Gout [M10.9] 10/26/2021 HTN (hypertension) [I10] 10/26/2021 Hyperlipidemia, mixed [E78.2] 10/26/2021 Prostate cancer (HCC) [C61] 10/26/2021 Chronic bilateral low back pain with bilateral *12/08/2021 DDD (degenerative disc disease), lumbar [M51.36*12/08/2021 Type 2 diabetes mellitus without complication, *12/08/2021 Encounter Status:Closed by DELIA CHAVES on 10/19/24 Normal [facility] Bedside Glucoseon 10-18-2024 FINGERSTICK GLU 173 mg/dL High 74-106 [facility] Comment on above: Result Comment: TYRONE GEMENT OF PATIENT CARE PER NURSING PROTOCOL Performed By: #### L 501.080 #### [facility] [address] [place], [address] FINGERSTICK GLU 157 mg/dL High 74-106 [facility] Comment on above: Result Comment: TYRONE GEMENT OF PATIENT CARE PER NURSING PROTOCOL Performed By: #### L 501.080 ####[facility] [address] [place], [address] FINGERSTICK GLU 129 mg/dL High 74-106 [facility] Comment on above: Result Comment: TYRONE GEMENT OF PATIENT CARE PER NURSING PROTOCOL Performed By: #### L 500.2500, L100.0100 #### [facility] [address] [place], [address] FINGERSTICK GLU 133 mg/dL High 74-106 [facility] Comment on above: Result Comment: TYRONE GEMENT OF PATIENT CARE PER NURSING PROTOCOL Performed By: #### L 500.2500, L100.0100 #### [facility] [address] [place], [address] CNPNon 10-18-2024 CNPN Telephone (LEANN) -- LINO WHEELER ([id number]) 1935 M Date Time Provider Department 10/18/24 KEYLA SCHULTZ During your visit today, we recorded the following information about you: Janet Sharma 10/18/2024 1:35 PM Signed Lino is a patient of Keyla Schultz MD today [place], Intake Dept called from [facility] to confirm the doctor will follow and sign for [facility] services: nursing, PT, OT, SW. Please call back to confirm. The patient is discharging tomorrow. Patient has been identified by name and birthdate. was an appointment scheduled: No Closing statement: Results or non-symptom based questions: Thank you for calling [facility], your call will be returned within the next business day. Cesar Diaz APRN.WINDOWS TECHNICAL SPECIALIST 10/18/2024 4:44 PM Signed Yes, Dr. Schultz will follow Cesar Murray APRN.WINDOWS TECHNICAL SPECIALIST Delia Chaves LPN 10/19/2024 10:48 AM Signed Helena aware that Dr Schultz will follow. She will remind patient that he needs to keep his 10/26/2024 appointment to be compliant with medicare. Allergies As of Date: 10/18/2024 Noted Allergy Reaction DILAUDID (HYDROMORPHONE (BULK)) 03/08/2017 1 - Mental Status Change PENICILLIN 01/14/2017 16 - Unknown TORADOL (KETOROLAC) 01/14/2017 9 - Itching Date Reviewed: 03/15/2024 Reviewed by: Delia Chaves LPN - Fully Assessed Reason for Visit: Home Care [4073] Prescriptions as of 10/19/2024 - allopurinol (ZYLOPRIM) 300 mg tablet TAKE 1 TABLET BY MOUTH ONCE DAILY - blood sugar diagnostic test strip Use with blood glucose test 3 times daily. - tamsulosin (FLOMAX) 0.4 mg TAKE 1 CAPSULE BY MOUTH ONCE DAILY - escitalopram oxalate (LEXAPRO) 5 mg tablet Take 1 tablet by mouth once daily. - SITagliptin phosphate (JANUVIA) 100 mg tablet Take 1 tablet by mouth once daily. - rosuvastatin (CRESTOR) 10 mg tablet TAKE 1 TABLET BY MOUTH ONCE DAILY - Lancets Use with blood glucose test 3 times daily. - insulin glargine (LANTUS SOLOSTAR U-100 INSULIN) 100 unit/mL (3 mL) INJECT 21 UNITS SUBCUTANEOUSLY EVERY MORNING - amitriptyline (ELAVIL) 25 mg tablet Take 25 mg by mouth daily at bedtime. - levETIRAcetam (KEPPRA) 500 mg tablet TAKE 1 TABLET BY MOUTH TWICE DAILY - gabapentin (NEURONTIN) 100 mg capsule Take 1 capsule by mouth two times a day for 30 days. - azelastine 0.1% nasal spray Use 1 [place] in each nostril two times a day. - atenolol (TENORMIN) 50 mg tablet TAKE ONE-HALF TABLET BY MOUTH ONCE DAILY - Insulin [place], Disposable, (PEN NEEDLE) 32 gauge x 5/32 Use to inject insulin twice daily. - oxyCODONE myristate (XTAMPZA ER) 9 mg CSpT Take 9 mg by mouth twice daily. - Insulin [place], Disposable, (PEN NEEDLE) 32 gauge x 5/32 Use to inject insulin up to 8 times per day. - Blood-Glucose Meter 1 Device three times daily. Test Three times a day. - alcohol swabs Use with blood glucose test 3 times daily. Meds Comments as of 07/23/2019: Poor historian, did not bring list of medication. Unable to verify today 07/22/2019 Problem List As Of Date 10/18/2024 Noted Resolved DKA (diabetic ketoacidosis) (HCC) [E11.10] 10/26/2021 08/04/2022 Epilepsy (HCC) [G40.909] 10/26/2021 Chronic back pain [M54.9, G89.29] 10/26/2021 Gout [M10.9] 10/26/2021 HTN (hypertension) [I10] 10/26/2021 Hyperlipidemia, mixed [E78.2] 10/26/2021 Prostate cancer (HCC) [C61] 10/26/2021 Chronic bilateral low back pain with bilateral *12/08/2021 DDD (degenerative disc disease), lumbar [M51.36*12/08/2021 Type 2 diabetes mellitus without complication, *12/08/2021 Encounter Status:Closed by DELIA CHAVES on 10/19/24 Normal [facility] Discharge Instructionon Discharge Instruction [facility] Medical Records Department [address] [place] [id number] Instructions for Home/Discharge Instructions 10/18/24 1058 MR#: [id number] Acct: [id number] Name: LINO WHEELER Rep #: [id number] : 1935 89 From: Sriram Stroud MD PCP: Dr. Saulo Scuhltz MD Status:ADM ALEX Discharge Instructions Diet Discharge Diet: Light diet - advance as tolerated DC O2, CPAP, BIPAP needs Home O2 Discharge instructions: No Dressing / Incision Discharge Activity: Return to Normal Activity and May Not Drive Weight Bearing Status: Weight bearing as tolerated Dressing / Incision Call your doctor if you observe: Fever of 101 or Higher, Coldness, Increased Pain, Numbness or Tingling, Change in Color, Inability to urinate, Inability to have a bowel movement, Shortness of breath, Dizziness, Fainting spells, Swelling in the ankles, Chest pain, Prolonged hiccupping, Increased palpitations (irregular heartbeat) and Calf discomfort Follow Up Care When: IN 2 WEEKS Test Results: Test results from this visit will be discussed in further detail at your follow-up appointment, if applicable. Discharge Plan Admission Admit Date/Time: 10/15/24 18:29 Primary Reason for Your Visit: Failure to thrive Attending Provider: Sriram Stroud Primary Care Provider: Saulo Schultz Consulting Providers: Gemma Nava Instructions Patient Instructions: ED Diabetes- Overview Additional Instructions / Restrictions: Follow-up with your PCP. Return for any other concerns. Discharge Orders/Prescriptions Prescriptions: New sennosides-docusate sodium [Stimulant Laxative Plus] 8.6-50 mg Tablet 2 tab PO BID Qty: 0 0RF rosuvastatin 10 mg tablet 10 mg PO DAILY 30 Days Qty: 30 2RF insulin lispro [Humalog Andrews KwikPen U-100] 100 unit/mL insulin pen, half-unit See Protocol subcut TIDCM Qty: 15 3RF Protocol: 3. Sliding Scale Insulin Med Dosing Condition: 150-189 mg/dl = 1 unit Condition: 190-229 mg/dl = 2 units Condition: 230-269 mg/dl = 3 units Condition: 270-309 mg/dl = 4 units Condition: 310-349 mg/dl = 5 units Condition: 350-399 mg/dl = 6 units Condition: 400-449 mg/dl = 7 units Condition: Greater than 449 call physician Protocol Text: Suggested for: - Patients on Total Daily Insulin Dose of 37-55 units - Obese, infected, or steroid patients MEDIUM DOSING ALGORITHIM Rx Instructions: Call PCP if Glucose <70 or > 400 Continued levetiracetam 500 mg tablet 500 mg PO BID Xtampza ER 18 mg cap,sprinkl,ER12hr(DONT CRUSH) 18 mg PO BID Rx Instructions: must administer with a meal/food Januvia 100 mg tablet 100 mg PO DAILY amitriptyline 25 mg tablet 25 mg PO DAILY tamsulosin 0.4 mg capsule 0.4 mg PO DAILY Xarelto 20 mg tablet 20 mg PO DAILY Rx Instructions: must administer with evening meal allopurinol 300 mg tablet 300 mg PO DAILY Changed hydroxyzine pamoate 25 mg capsule 25 mg PO QHS PRN (Reason: insomnia) Qty: 30 0RF oxymetazoline [12 Hour Nasal Relief [place]] 0.05 % spray,non-aerosol 2 spray intranasal BID PRN (Reason: Nasal congestion) 30 Days Qty: 0 0RF Held insulin glargine [Lantus Solostar U-100 Insulin] 100 unit/mL (3 mL) insulin pen subcut Hold Instructions: Hold if glucose less than 130 mg/dl Patient Comments: unknown dosage Discontinued rosuvastatin 10 mg tablet 10 mg PO QHS Referrals / Follow Up: Saulo Schultz MD [Primary Care Provider] - Saulo Schultz MD [[facility]] - 5-7 Days Disposition Disposition (needs filled in before D/C Order can be placed): Home Health Service 10/18/24 [id number] Sriram Stroud MD CC: Dr. Saulo Schultz MD; Dr. Gemma Nava MD Signed Normal [facility] Glucose measurement at [facility] deOrdered By: Sriram Stroud on 10-18-2024 Bedside Glucose (Misc Panel) 173 mg/dL High 74-106 [facility] Comment on above: MANAGEMENT OF PATIEN T CARE PER NURSING PROTOCOL Glucose [Mass/Vol] 173 mg/dL High 74-106 [facility] Comment on above: MANAGEMENT OF PATIEN T CARE PER NURSING PROTOCOL Bedside Glucoseon 10-17-2024 FINGERSTICK GLU 172 mg/dL High 74-106 [facility] Comment on above: Result Comment: TYRONE OVERTON OF PATIENT CARE PER NURSING PROTOCOL Performed By: #### L 501.080 #### [facility] [address] [place], [address] FINGERSTICK GLU 123 mg/dL High 74-106 [facility] Comment on above: Result Comment: TYRONE GEMENT OF PATIENT CARE PER NURSING PROTOCOL Performed By: #### L 501.080 ####[facility] [address] [place], [address] FINGERSTICK GLU 137 mg/dL High 74-106 [facility] Comment on above: Result Comment: TYRONE GEMENT OF PATIENT CARE PER NURSING PROTOCOL Performed By: #### L 501.080 ####[facility] [address] [place], [address] Absolute lymphocyte countOrd ered By: Gemma Nava on 10-16-2024 Lymphocytes Auto (Unsp spec) [#/Vol] 1.61 10*3/uL 0.83-4.51 [facility] Absolute neutrophil countOrd ered By: Gemma Nava on 10-16-2024 Neutrophils (Bld) [#/Vol] 5.0 10*3/uL 2.0-7.7 [facility] Anion gap in Serum or Plasma Ordered By: Gemma Nava on 10-16-2024 Anion gap [Moles/Vol] 12 mmol/L 5-15 [facility] Automated lymphocyte count a s percentage of total leukocytesOrdered By: Gemma Nava on 10-16-2024 Lymphocytes/100 WBC Auto (Unsp spec) 21.2 % 19-41 [facility] BUN/creatinine ratioOrdered By: Gemma Nava on 10-16-2024 Urea nitrogen/Creatinine [Mass ratio] 16.7 mg/mg 10-20 [facility] Basic Metabolic Profile (BMP )on 10-16-2024 BUN/CRE 16.7 RATIO Normal - [facility] Comment on above: Performed By: #### L 500.2500, L100.0100, L501.9520 ####[facility] [address] [place], [address] Calcium [Mass/Vol] 9.2 mg/dL Normal 7.6-11.0 [facility] Comment on above: Performed By: #### L 500.2500, L100.0100, L501.9520 ####[facility] [address] [place], [address] Chloride [Moles/Vol] 104 mmol/L Normal 98-108 [facility] Comment on above: Performed By: #### L 500.2500, L100.0100, L501.9520 ####[facility] [address] [place], [address] CO2 [Moles/Vol] 22.8 mmol/L Normal 21.0-32.0 [facility] Comment on above: Performed By: #### L 500.2500, L100.0100, L501.9520 ####[facility] [address] [place], [address] Creatinine [Mass/Vol] 0.76 mg/dL Normal 0.70-1.20 [facility] Comment on above: Performed By: #### L 500.2500, L100.0100, L501.9520 ####[facility] [address] [place], [address] ECRCL 68.12 ml/min Normal 50-250 [facility] Comment on above: Performed By: #### L 500.2500, L100.0100, L501.9520 ####[facility] [address] [place], [address] GAP 12 Normal 5-15 [facility] Comment on above: Performed By: #### L 500.2500, L100.0100, L501.9520 ####[facility] [address] [place], [address] GFR/1.73 sq M.predicted among non-blacks MDRD (S/P/Bld) [Vol rate/Area] 86 mL/min/{1.73_m2} Normal >60 [facility] Comment on above: Result Comment: mL/m in/1.73m2 CKD-EPI Creatinine Equation (2020) Performed By: #### L 500.2500, L100.0100, L501.9520 ####[facility] [address] [place], [address] Glucose [Mass/Vol] 109 mg/dL High 70-99 [facility] Comment on above: Performed By: #### L 500.2500, L100.0100, L501.9520 ####[facility] [address] [place], [address] Potassium [Moles/Vol] 4.2 mmol/L Normal 3.3-5.1 [facility] Comment on above: Result Comment: Hemo lysis present, Results??could be affected. ?? Performed By: #### L 500.2500, L100.0100, L501.9520 ####[facility] [address] [place], [address] Sodium [Moles/Vol] 139 mmol/L Normal 133-145 [facility] Comment on above: Performed By: #### L 500.2500, L100.0100, L501.9520 ####[facility] [address] [place], [address] Urea nitrogen [Mass/Vol] 13 mg/dL Normal 4-19 [facility] Comment on above: Performed By: #### L 500.2500, L100.0100, L501.9520 ####[facility] [address] [place], [address] Basophil percentageOrdered B y: Gemma Nava on 10-16-2024 Basophils/100 WBC (Bld) 0.8 % 0-1 [facility] Bedside Glucoseon 10-16-2024 FINGERSTICK GLU 129 mg/dL High 74-106 [facility] Comment on above: Result Comment: TYRONE OVERTON OF PATIENT CARE PER NURSING PROTOCOL Performed By: #### L 501.080 ####[facility] [address] [place], [address] FINGERSTICK GLU 160 mg/dL High 74-106 [facility] Comment on above: Result Comment: TYRONE GEMENT OF PATIENT CARE PER NURSING PROTOCOL Performed By: #### L 500.2500, L100.0100 #### [facility] [address] [place], [address] FINGERSTICK GLU 106 mg/dL Normal 74-106 [facility] Comment on above: Result Comment: TYRONE GEMENT OF PATIENT CARE PER NURSING PROTOCOL Performed By: #### L 500.2500, L100.0100 #### [facility] [address] [place], [address] FINGERSTICK GLU 149 mg/dL High 74-106 [facility] Comment on above: Result Comment: TYRONE GEMENT OF PATIENT CARE PER NURSING PROTOCOL Performed By: #### L 501.080 #### [facility] [address] [place], [address] CBC W/Diff, Automatedon 04-0 -2024 Absolute Lymph 1.61 X10 3/uL Normal 0.83-4.51 [facility] Comment on above: Performed By: #### L 500.2500, L100.0100, L501.9520 ####[facility] [address] [place], [address] Absolute Neut 5.0 X10 3/uL Normal 2.0-7.7 [facility] Comment on above: Performed By: #### L 500.2500, L100.0100, L501.9520 ####[facility] [address] [place], [address] Basophils/100 WBC (Bld) 0.8 % Normal 0-1 [facility] Comment on above: Performed By: #### L 500.2500, L100.0100, L501.9520 ####[facility] [address] [place], [address] Eosinophils/100 WBC (Bld) 5.3 % High 0-5 [facility] Comment on above: Performed By: #### L 500.2500, L100.0100, L501.9520 ####[facility] [address] [place], [address] Erythrocyte distribution width (RBC) [Ratio] 14.6 % Normal 11.6-14.6 [facility] Comment on above: Performed By: #### L 500.2500, L100.0100, L501.9520 ####[facility] [address] [place], [address] Hematocrit (Bld) [Volume fraction] 38.9 % Low 40-54 [facility] Comment on above: Performed By: #### L 500.2500, L100.0100, L501.9520 ####[facility] [address] [place], [address] Hemoglobin (Bld) [Mass/Vol] 12.5 g/dL Low 13.0-16.5 [facility] Comment on above: Performed By: #### L 500.2500, L100.0100, L501.9520 ####[facility] [address] [place], [address] IG% 0.400 Normal 0.0-0.9 [facility] Comment on above: Result Comment: IG% - Immature Granulocytes (promyelocytes, myelocytes and metamyelocytes) > 1% indicates that a LEFT SHIFT is Present. Performed By: #### L 500.2500, L100.0100, L501.9520 ####[facility] [address] [place], [address] Lymphocytes/100 WBC (Bld) 21.2 % Normal 19-41 [facility] Comment on above: Performed By: #### L 500.2500, L100.0100, [id number] ####[facility] [address] [place], [address] MCH (RBC) [Entitic mass] 30.6 pg Normal 27.0-32.0 [facility] Comment on above: Performed By: #### L 500.2500, L100.0100, L5.20 ####[facility] [address] [place], [address] MCHC (RBC) [Mass/Vol] 32.1 g/dL Normal 32-36 [facility] Comment on above: Performed By: #### L 500.2500, L100.0100, L5.20 ####[facility] [address] [place], [address] MCV (RBC) [Entitic vol] 95.3 fL High 80-94 [facility] Comment on above: Performed By: #### L 500.2500, L100.0100, L5.20 ####[facility] [address] [place], [address] Monocytes/100 WBC (Bld) 7.0 % Normal 0-10 [facility] Comment on above: Performed By: #### L 500.2500, L100.0100, L5.20 ####[facility] [address] [place], [address] Neutrophils/100 WBC (Bld) 65.3 % Normal 47-70 [facility] Comment on above: Performed By: #### L 500.2500, L100.0100, L5.20 ####[facility] [address] [place], [address] Nucleated RBC (Bld) [#/Vol] 0 10*3/uL Normal 0-5 [facility] Comment on above: Performed By: #### L 500.2500, L100.0100, L501.20 ####[facility] [address] [place], [address] Platelet mean volume (Bld) [Entitic vol] 9.6 fL Normal 6.2-12.0 [facility] Comment on above: Performed By: #### L 500.2500, L100.0100, L501.9520 ####[facility] [address] [place], [address] Platelets (Bld) [#/Vol] 235 10*3/uL Normal 150-450 [facility] Comment on above: Performed By: #### L 500.2500, L100.0100, L501.9520 ####[facility] [address] [place], [address] RBC (Bld) [#/Vol] 4.08 10*6/uL Low 4.6-6.2 [facility] Comment on above: Performed By: #### L 500.2500, L100.0100, L501.9520 ####[facility] [address] [place], [address] RDW SD 49.9 fl High 35.1-43.9 [facility] Comment on above: Performed By: #### L 500.2500, L100.0100, L501.9520 ####[facility] [address] [place], [address] WBC (Bld) [#/Vol] 7.6 10*3/uL Normal 4.4-11.0 [facility] Comment on above: Performed By: #### L 500.2500, L100.0100, L501.9520 ####[facility] [address] [place], [address] Isaiah 10-16-2024 JAIRO Telephone (FPWAKULWINDER) -- LINO WHEELER ([id number]) 1935 M Date Time Provider Department 10/16/24 KEYLA SCHULTZ During your visit today, we recorded the following information about you: Sharan Ayala MA 10/16/2024 12:49 PM Signed Received visit linda from [facility]. Placed in provider's inbox for review. Allergies As of Date: 10/16/2024 Noted Allergy Reaction DILAUDID (HYDROMORPHONE (BULK)) 03/08/2017 1 - Mental Status Change PENICILLIN 01/14/2017 16 - Unknown TORADOL (KETOROLAC) 01/14/2017 9 - Itching Date Reviewed: 03/15/2024 Reviewed by: Delia Chaves LPN - Fully Assessed Prescriptions as of 10/16/2024 - allopurinol (ZYLOPRIM) 300 mg tablet TAKE 1 TABLET BY MOUTH ONCE DAILY - blood sugar diagnostic test strip Use with blood glucose test 3 times daily. - tamsulosin (FLOMAX) 0.4 mg TAKE 1 CAPSULE BY MOUTH ONCE DAILY - escitalopram oxalate (LEXAPRO) 5 mg tablet Take 1 tablet by mouth once daily. - SITagliptin phosphate (JANUVIA) 100 mg tablet Take 1 tablet by mouth once daily. - rosuvastatin (CRESTOR) 10 mg tablet TAKE 1 TABLET BY MOUTH ONCE DAILY - Lancets Use with blood glucose test 3 times daily. - insulin glargine (LANTUS SOLOSTAR U-100 INSULIN) 100 unit/mL (3 mL) INJECT 21 UNITS SUBCUTANEOUSLY EVERY MORNING - amitriptyline (ELAVIL) 25 mg tablet Take 25 mg by mouth daily at bedtime. - levETIRAcetam (KEPPRA) 500 mg tablet TAKE 1 TABLET BY MOUTH TWICE DAILY - gabapentin (NEURONTIN) 100 mg capsule Take 1 capsule by mouth two times a day for 30 days. - azelastine 0.1% nasal spray Use 1 [place] in each nostril two times a day. - atenolol (TENORMIN) 50 mg tablet TAKE ONE-HALF TABLET BY MOUTH ONCE DAILY - Insulin [place], Disposable, (PEN NEEDLE) 32 gauge x 5/32 Use to inject insulin twice daily. - oxyCODONE myristate (XTAMPZA ER) 9 mg CSpT Take 9 mg by mouth twice daily. - Insulin [place], Disposable, (PEN NEEDLE) 32 gauge x 5/32 Use to inject insulin up to 8 times per day. - Blood-Glucose Meter 1 Device three times daily. Test Three times a day. - alcohol swabs Use with blood glucose test 3 times daily. Meds Comments as of 07/23/2019: Poor historian, did not bring list of medication. Unable to verify today 07/22/2019 Problem List As Of Date 10/16/2024 Noted Resolved DKA (diabetic ketoacidosis) (HCC) [E11.10] 10/26/2021 08/04/2022 Epilepsy (HCC) [G40.909] 10/26/2021 Chronic back pain [M54.9, G89.29] 10/26/2021 Gout [M10.9] 10/26/2021 HTN (hypertension) [I10] 10/26/2021 Hyperlipidemia, mixed [E78.2] 10/26/2021 Prostate cancer (HCC) [C61] 10/26/2021 Chronic bilateral low back pain with bilateral *12/08/2021 DDD (degenerative disc disease), lumbar [M51.36*12/08/2021 Type 2 diabetes mellitus without complication, *12/08/2021 Encounter Status:Closed by SHARAN AYALA on 10/16/24 [facility] Carbon dioxide, total [Moles /volume] in Central venous bloodOrdered By: Gemma Nava on 10-16-2024 CO2 [Moles/Vol] 22.8 mmol/L 21.0-32.0 [facility] Chloride assayOrdered By: Blas Nava on 10-16-2024 Chloride [Moles/Vol] 104 mmol/L 98-108 [facility] Eosinophil percentageOrdered By: Gemma Nava on 10-16-2024 Eosinophils/100 WBC (Bld) 5.3 % High 0-5 [facility] Erythrocyte distribution wid th (RBC) [Ratio]Ordered By: Gemma Nava on 10-16-2024 Erythrocyte distribution width (RBC) [Entitic vol] 49.9 fL High 35.1-43.9 [facility] Erythrocyte distribution wid th ratioOrdered By: Gemma Nava on 10-16-2024 Erythrocyte distribution width (RBC) [Ratio] 14.6 % 11.6-14.6 [facility] Erythrocyte distribution wid th standard deviationOrdered By: Gemma Nava on 10-16-2024 Erythrocyte distribution width (RBC) [Ratio] 49.9 fl High 35.1-43.9 [facility] Estimation of creatinine francisco aranceOrdered By: Gemma Nava on 10-16-2024 Estimated Creatinine Clearance Calc 68.12 ml/min 50-250 [facility] GFR/1.73 sq M.predicted shane g non-blacks MDRD (S/P/Bld) [Vol rate/Area]Ordered By: Gemma Nava on 10-16-2024 Estimated GFR (MDRD) Non-Af Amer 86 >60 [facility] Comment on above: mL/min/1.73m2 CKD-EP I Creatinine Equation (2020) Glomerular filtration rate ( GFR) estimation/1.73 sq m using serum, plasma, or whole bOrdered By: Gemma Nava on 10-16-2024 GFR/1.73 sq M.predicted among non-blacks MDRD (S/P/Bld) [Vol rate/Area] 86 mL/min/{1.73_m2} >60 [facility] Comment on above: mL/min/1.73m2 CKD-EP I Creatinine Equation (2020) Hematocrit Auto (Bld) [Volum e fraction]Ordered By: Gemma Nava on 10-16-2024 Hematocrit (Bld) [Volume fraction] 38.9 % Low 40-54 [facility] Hemoglobin measurementOrdere d By: Gemma Nava on 10-16-2024 Hemoglobin (Bld) [Mass/Vol] 12.5 g/dL Low 13.0-16.5 [facility] Immature granulocytes/100 WB C Auto (Bld)Ordered By: Gemma Nava on 10-16-2024 Immature granulocytes/100 WBC (Bld) 0.400 % 0.0-0.9 [facility] Comment on above: IG% - Immature Granu locytes (promyelocytes, myelocytes and metamyelocytes) > 1% indicates that a LEFT SHIFT is Present. Lymphocytes Auto (Unsp spec) [#/Vol]Ordered By: Gemma Nava on 10-16-2024 Lymphocytes (Bld) [#/Vol] 1.61 10*3/uL 0.83-4.51 [facility] Lymphocytes/100 WBC Auto (Un sp spec)Ordered By: Gemma Nava on 10-16-2024 Lymphocytes/100 WBC (Bld) 21.2 % 19-41 [facility] MCV (mean corpuscular volume ) determinationOrdered By: Gemma Nava on 10-16-2024 MCV (RBC) [Entitic vol] 95.3 fL High 80-94 [facility] Mean corpuscular hemoglobin (MCH) determinationOrdered By: Gemma Nava on 10-16-2024 MCH (RBC) [Entitic mass] 30.6 pg 27.0-32.0 [facility] Mean corpuscular hemoglobin concentration (MCHC) determinationOrdered By: Gemma Nava on 10-16-2024 MCHC (RBC) [Mass/Vol] 32.1 g/dL 32-36 [facility] Mean platelet volume determi nationOrdered By: Gemma Nava on 10-16-2024 Platelet mean volume (Bld) [Entitic vol] 9.6 fL 6.2-12.0 [facility] Monocyte percentageOrdered B y: Gemma Nava on 10-16-2024 Monocytes/100 WBC (Bld) 7.0 % 0-10 [facility] Neutrophil percentageOrdered By: Gemma Nava on 10-16-2024 Neutrophils/100 WBC (Bld) 65.3 % 47-70 [facility] Nucleated red blood cell per centageOrdered By: Gemma Nava on 10-16-2024 Nucleated RBC/100 WBC (Bld) [Ratio] 0 % 0-5 [facility] Platelet countOrdered By: Blas Nava on 10-16-2024 Platelets (Bld) [#/Vol] 235 10*3/uL 150-450 [facility] Potassium (Unsp spec) [Mass/ Vol]Ordered By: Gemma Nava on 10-16-2024 Potassium [Moles/Vol] 4.2 mmol/L 3.3-5.1 [facility] Comment on above: Hemolysis present, R esults could be affected. Potassium measurement (mass/ volume)Ordered By: Gemma Nava on 10-16-2024 Potassium (Unsp spec) [Mass/Vol] 4.2 mmol/L 3.3-5.1 [facility] Comment on above: Hemolysis present, R esults could be affected. RBC Auto (Bld) [#/Vol]Ordere d By: Gemma Nava on 10-16-2024 RBC (Bld) [#/Vol] 4.08 10*6/uL Low 4.6-6.2 [facility] Serum creatinine measurement (mass/volume)Ordered By: Gemma Nava on 10-16-2024 Creatinine [Mass/Vol] 0.76 mg/dL 0.70-1.20 [facility] Serum glucose measurement (m ass/volume)Ordered By: Gemma Nava on 10-16-2024 Glucose [Mass/Vol] 109 mg/dL High 70-99 [facility] Serum or plasma calcium jose urement (mass/volume)Ordered By: Gemma Nava on 10-16-2024 Calcium [Mass/Vol] 9.2 mg/dL 7.6-11.0 [facility] Serum or plasma urea nitroge n measurement (mass/volume)Ordered By: Gemma Nava on 10-16-2024 Urea nitrogen [Mass/Vol] 13 mg/dL 4-19 [facility] Sodium levelOrdered By: Bernie Nava on 10-16-2024 Sodium [Moles/Vol] 139 mmol/L 133-145 [facility] TSH DL <= 0.005 mIU/L QnOrde red By: Gemma Nava on 10-16-2024 Thyroid Stimulating Hormone (TSH) 1.390 uIU/mL 0.300-4.200 [facility] TSH Qn 1.390 uIU/mL 0.300-4.200 [facility] Thyroid Stim Hormone (TSH)on 10-16-2024 TSH 1.390 uIU/mL Normal 0.300-4.200 [facility] Comment on above: Performed By: #### L 500.2500, L100.0100, L501.9520 ####[facility] [address] [place], [address] White blood cell (WBC) count Ordered By: Gemma Nava on 10-16-2024 WBC (Bld) [#/Vol] 7.6 10*3/uL 4.4-11.0 [facility] Absolute neutrophil countOrd ered By: Kelsy Castle on 10-15-2024 Neutrophils (Bld) [#/Vol] 3.9 10*3/uL 2.0-7.7 [facility] Anion gap in Serum or Plasma Ordered By: Kelsy Castle on 10-15-2024 Anion gap [Moles/Vol] 22 mmol/L High 5-15 [facility] Automated blood erythrocyte countOrdered By: Kelsy Castle on 10-15-2024 RBC (Bld) [#/Vol] 4.12 10*6/uL Low 4.6-6.2 [facility] Comment on above: Performed By: #### L 100.0100, L500.2500 #### [facility] [address] [place], [place], [address] Automated blood hematocrit ( percentage)Ordered By: Kelsy Castle on 10-15-2024 Hematocrit (Bld) [Volume fraction] 39.9 % Low 40-54 [facility] Comment on above: Performed By: #### L 100.0100, L500.2500 #### [facility] [address] [place], [address] Automated lymphocyte count a s percentage of total leukocytesOrdered By: Kelsy Castle on 10-15-2024 Lymphocytes/100 WBC (Bld) 21.4 % Normal 19-41 [facility] Comment on above: Performed By: #### L 100.0100, L500.2500 #### [facility] [address] [place], [address] BUN/creatinine ratioOrdered By: Kelsy Castle on 10-15-2024 Urea nitrogen/Creatinine [Mass ratio] 14.7 mg/mg 10-20 [facility] Basic Metabolic Profile (BMP )on 10-15-2024 BUN/CRE 14.7 RATIO Normal - [facility] Comment on above: Performed By: #### L 100.0100, L500.2500 #### [facility] [address] [place], [address] ECRCL 69.15 ml/min Normal 50-250 [facility] Comment on above: Performed By: #### L 100.0100, L500.2500 #### [facility] [address] [place], [address] GAP 22 High 5-15 [facility] Comment on above: Performed By: #### L 100.0100, L500.2500 #### [facility] [address] [place], [address] GFR/1.73 sq M.predicted among non-blacks MDRD (S/P/Bld) [Vol rate/Area] 86 mL/min/{1.73_m2} Normal >60 [facility] Comment on above: Result Comment: mL/m in/1.73m2 CKD-EPI Creatinine Equation (2020) Performed By: #### L 100.0100, L500.2500 #### [facility] [address] [place], [address] Basophil percentageOrdered B y: Kelsy Castle on 10-15-2024 Basophils/100 WBC (Bld) 1.2 % High 0-1 [facility] Comment on above: Performed By: #### L 100.0100, L500.2500 #### [facility] [address] [place], [address] Bedside Glucoseon 10-15-2024 FINGERSTICK GLU 118 mg/dL High 74-106 [facility] Comment on above: Result Comment: TYRONE GEMENT OF PATIENT CARE PER NURSING PROTOCOL Performed By: #### L 500.2500, L100.0100 #### [facility] [address] [place], [address] FINGERSTICK GLU 124 mg/dL High 74-106 [facility] Comment on above: Result Comment: TYRONE GEMENT OF PATIENT CARE PER NURSING PROTOCOL Performed By: #### L 500.2500, L100.0100 #### [facility] [address] [place], [address] CBC W/Diff, Automatedon 03-3 Absolute Lymph 1.28 X10 3/uL Normal 0.83-4.51 [facility] Comment on above: Performed By: #### L 100.0100, L500.2500 #### [facility] [address] [place], [address] Absolute Neut 3.9 X10 3/uL Normal 2.0-7.7 [facility] Comment on above: Performed By: #### L 100.0100, L500.2500 #### [facility] [address] [place], [address] IG% 0.500 Normal 0.0-0.9 [facility] Comment on above: Result Comment: IG% - Immature Granulocytes (promyelocytes, myelocytes and metamyelocytes) > 1% indicates that a LEFT SHIFT is Present. Performed By: #### L 100.0100, L500.2500 #### [facility] [address] [place], [address] Nucleated RBC (Bld) [#/Vol] 0 10*3/uL Normal 0-5 [facility] Comment on above: Performed By: #### L 100.0100, L500.2500 #### [facility] [address] [place], [address] RDW SD 51.2 fl High 35.1-43.9 [facility] Comment on above: Performed By: #### L 100.0100, L500.2500 #### [facility] [address] [place], [address] Carbon dioxide, total [Moles /volume] in Central venous bloodOrdered By: Kelsy Castle on 10-15-2024 CO2 [Moles/Vol] 12.7 mmol/L Low 21.0-32.0 [facility] Comment on above: Performed By: #### L 100.0100, L500.2500 #### [facility] [address] [place], [address] Chloride assayOrdered By: Kate Castle on 10-15-2024 Chloride [Moles/Vol] 103 mmol/L Normal 98-108 [facility] Comment on above: Performed By: #### L 100.0100, L500.2500 #### [facility] [address] [place], [address] Emergency Department Summary on 10-15-2024 Emergency Department Summary [facility] Medical Records Department [address] [place] [address] Emergency Department Summary 10/15/24 MR#: [id number] Acct: [id number] Name: SUMMERLINO Rep #: [id number] : 1935 89 From: Aamir Auguste DO PCP: Dr. Saulo Schultz MD Status:DIS ALEX Location: [place] [id number] What to do if you have Problems For any increased pain, shortness of breath, bleeding, nausea or vomiting, chest pain, or any unexpected problems, contact your Primary Care Provider. Call [facility] ([phone]) or report to the closest Emergency Room. Call 911 if necessary. 10/19/24 1151 Cosigner Signature (if applicable): CC: Dr. Saulo Schultz MD Signed Normal [facility] Emergency Department Summary [facility] Medical Records Department [address] [place] [address] Emergency Department Summary 10/15/24 MR#: [id number] Acct: [id number] Name: LINO WHEELER Rep #: [id number] : 1935 89 From: Kelsy ODONNELL PCP: Saulo Schultz MD Status:REG ER Location: ED ADDENDUM by Dr. Aamir Auguste DO on 10/15/24 at 1626 Update: 1625 hrs. Nursing fish hatchery supervisor comes to me and tells me that the family is called her several times stating that he cannot go home. I do not disagree that the patient would benefit from assisted living or detention facility. However he does not wish this and expressed that to me directly. He is alert oriented x 3 my examination appears to have the capacity to make this decision. I understand that it is a liability for the patient to go home but I cannot legally force someone to do something that they cannot do while they have the capacity to make that decision. I have asked the nursing fish hatchery supervisor to please go in and speak with the patient and see if they can convince him to stay. 10/15/24 2056 Cosigner Signature (if applicable): 10/15/24 9010 cc: Saulo Schultz MD * Signed HPI History of Present Illness Chief Complaint: General Illness Narrative Narrative: Patient resenting today after family had concerns that he would not be able to take care of himself while his is currently here in the ICU. She is his primary caregiver, he she was admitted to the hospital yesterday. His granddaughter felt that he should be placed for failure to thrive due to concerns that he would not be able to feed or take care of himself. Patient reports that he last ate yesterday afternoon but has not had time to eat yet today. He does not have any acute complaints. He is alert and oriented x 4. He reports that he is not wanting to be placed in a facility. [facility] Medical History History of seizure disorder Gout Drooping eyelid Home Medications ???Medication ???Instructions ???Recorded ???Last Taken ???Type hydroxyzine pamoate 25 mg capsule 50 mg (2 x 25 mg) PO QHS PRN 12/17 Unknown Rx insomnia #30 CAPSULES amitriptyline 25 mg tablet 25 mg PO DAILY 10/15/24 Unknown Hi story insulin glargine 100 unit/mL (3 unit subcut 10/15/24 Unknown Histo ry mL) subcutaneous pen (Lantus Solostar U-100 Insulin) levetiracetam 500 mg tablet 500 mg PO BID 10/15/24 Unknown His tory oxycodone myristate 18 mg capsule 18 mg PO BID 10/15/24 Unknown His tory sprinkle extended release 12hr(DON'T CRUSH) (Xtampza ER) oxymetazoline 0.05 % nasal spray 2 spray intranasal BID 10/15/24 Un known History (12 Hour Nasal Relief [place]) rivaroxaban 20 mg tablet (Xarelto) 20 mg PO DAILY 10/15/24 Unknown History rosuvastatin 10 mg tablet 10 mg PO QHS 10/15/24 Unknown Hist ory sitagliptin phosphate 100 mg 100 mg PO DAILY 10/15/24 Unknown H istory tablet (Januvia) tamsulosin 0.4 mg capsule 0.4 mg PO DAILY 10/15/24 Unknown H istory Allergy/AdvReac Type Severity Reaction Status Date / Time Penicillins Allergy Mild Hives Verified 02/16/21 14:55 hydromorphone (From Dilaudid) Allergy Hallucinati Verified 02/16/21 14:55 ons ketorolac (From Toradol) Allergy Itching Verified 02/16/21 14:55 Family History Father Tuberculosis Surgical History History of back surgery Hx of laminectomy Social History household members: spouse housing: house Smoking Status: Never smoker Smokeless tobacco user: chewing tobacco alcohol intake: never what type of physical activity do you participate in: none do you feel safe at home: Yes ROS ROS ED Constitutional Constitutional ED: Denies chills, fever(s) or sweats Cardiovascular Cardiovascular: Denies chest pain Respiratory/Chest Respiratory/Chest: Denies cough or dyspnea Gastrointestinal Gastrointestinal: Denies abdominal pain, nausea or vomiting Genitourinary Genitourinary ED: Denies dysuria, hematuria or urinary urgency Musculoskeletal Musculoskeletal: Denies arthralgias or myalgias Integumentary Denies rash Neurologic Neurologic: Denies weakness EXAM Physical Exam Const Vital Signs: 10/15/24 11:14 10/15/24 11:19 10/15/24 13:25 Temperature 97.5 F L Temperature Source Oral Pulse Rate 67 73 Respiratory Rate 16 16 Respiratory Effort Normal Non-Labored Respiratory Pattern Normal Blood Pressure 162/87 H 156/78 H Blood Pressure Mean 112 104 Pulse Ox 95 97 Oxygen Delivery Method Room Air Room Air 10/15/24 14:55 Temperature 98.3 F Te (more content not included)... Normal [facility] Eosinophil percentageOrdered By: Kelsy Castle on 10-15-2024 Eosinophils/100 WBC (Bld) 5.2 % High 0-5 [facility] Comment on above: Performed By: #### L 100.0100, L500.2500 #### [facility] [address] [place], [address] Erythrocyte distribution wid th ratioOrdered By: Kelsy Castle on 10-15-2024 Erythrocyte distribution width (RBC) [Ratio] 14.5 % Normal 11.6-14.6 [facility] Comment on above: Performed By: #### L 100.0100, L500.2500 #### [facility] [address], [address] Erythrocyte distribution wid th standard deviationOrdered By: Kelsy Castle on 10-15-2024 Erythrocyte distribution width (RBC) [Entitic vol] 51.2 fL High 35.1-43.9 [facility] Estimation of creatinine francisco aranceOrdered By: Kelsy Castle on 10-15-2024 Estimated Creatinine Clearance Calc 69.15 ml/min 50-250 [facility] GFR/1.73 sq M.predicted shane g non-blacks MDRD (S/P/Bld) [Vol rate/Area]Ordered By: Kelsy Castle on 10-15-2024 Estimated GFR (MDRD) Non-Af Amer 86 >60 [facility] Comment on above: mL/min/1.73m2 CKD-EP I Creatinine Equation (2020) Glucose measurement at bedsi deOrdered By: Aamir Auguste on 10-15-2024 Bedside Glucose (Misc Panel) 124 mg/dL High 74-106 [facility] Comment on above: MANAGEMENT OF PATIEN T CARE PER NURSING PROTOCOL H AND P Exam - Hospitaliston 10-15-2024 H&P Exam - Hospitalist [facility] Medical Records Department [address] [place] [address] H P Exam - Hospitalist 10/15/24 1820 MR#: [id number] Acct: [id number] Name: LINO WHEELER Rep #: [id number] : 1935 89 From: Gemma Nava MD PCP: Saulo Schultz MD Status:REG ER Location: ED HPI - General General Date of Admission: 10/15/24 Date of Service: 10/15/24 Chief Complaint: Inability to care for self HPI Narrative LINO WHEELER, is a 89-year-old male history of chronic pain, diabetes, seizure disorder, BPH, chronic anticoagulation on Xarelto presented to [facility] ED 10/15/2024 due to concerns about him caring for himself at home.??? Patient's was admitted to the ICU yesterday and she is primary caregiver, granddaughter went to his house today and was concerned about his ability to care for himself and had patient come to the ED.??? Patient initially refused admission and was evaluated by ED physician felt to have capacity to make that decision, plan was for patient to go home however family very concerned about this and son refused to come pick patient up, ultimately patient was agreeable to admission for placement.??? Labs ordered and hospitalist contacted for admission.??? Patient evaluated at bedside and reports he feels fine and has no acute complaints. His last fall was about a week ago and reports he has had a little bit of swelling in his feet but no other new or acute changes, has some chronic shortness of breath which has not changed and no cough, during his fall he did not injure anything new or have any additional complaints, has chronic back pain from multiple lumbar surgeries which is at his baseline. [facility] Medical History History of seizure disorder Gout Drooping eyelid Home Medications ???Medication ???Instructions ???Recorded ???Last Taken ???Type hydroxyzine pamoate 25 mg capsule 50 mg (2 x 25 mg) PO QHS PRN 12/17 Unknown Rx insomnia #30 CAPSULES allopurinol 300 mg tablet 300 mg PO DAILY 10/15/24 Unknown H istory amitriptyline 25 mg tablet 25 mg PO DAILY 10/15/24 Unknown Hi story insulin glargine 100 unit/mL (3 unit subcut 10/15/24 Unknown Histo ry mL) subcutaneous pen (Lantus Solostar U-100 Insulin) levetiracetam 500 mg tablet 500 mg PO BID 10/15/24 Unknown His tory oxycodone myristate 18 mg capsule 18 mg PO BID 10/15/24 Unknown His tory sprinkle extended release 12hr(DON'T CRUSH) (Xtampza ER) oxymetazoline 0.05 % nasal spray 2 spray intranasal BID 10/15/24 Un known History (12 Hour Nasal Relief [place]) rivaroxaban 20 mg tablet (Xarelto) 20 mg PO DAILY 10/15/24 Unknown History rosuvastatin 10 mg tablet 10 mg PO QHS 10/15/24 Unknown Hist ory sitagliptin phosphate 100 mg 100 mg PO DAILY 10/15/24 Unknown H istory tablet (Januvia) tamsulosin 0.4 mg capsule 0.4 mg PO DAILY 10/15/24 Unknown H istory Allergy/AdvReac Type Severity Reaction Status Date / Time Penicillins Allergy Mild Hives Verified 02/16/21 14:55 hydromorphone (From Dilaudid) Allergy Hallucinati Verified 02/16/21 14:55 ons ketorolac (From Toradol) Allergy Itching Verified 02/16/21 14:55 Family History Father Tuberculosis Surgical History History of back surgery Hx of laminectomy Social History household members: spouse housing: house Smoking Status: Never smoker Smokeless tobacco user: chewing tobacco alcohol intake: never what type of physical activity do you participate in: none do you feel safe at home: Yes ROS ROS Narrative General: Denies fever/chills HENT: Denies headache, denies stuffy nose, denies sore throat EYES: Denies changes in vision Resp: Denies cough, some chronic shortness of breath not worse than usual Cardiac: Denies chest pain GI: Denies abdominal pain, denies changes in bowel, denies nausea/vomiting : Denies changes in urination Extremity: Possibly some slight swelling in his ankles MSK: Denies weakness, has some chronic back pain not worse than usual Neuro: Denies any numbness/tingling Heme: Denies any bleeding or bruising Skin: Denies rashes Psychiatric: No complaints voiced Vital Signs Vital Signs Vital Signs: 10/15/24 11:14 10/15/24 11:19 10/15/24 13:25 Temperature 97.5 F L Temperature Source Oral Pulse Rate 67 73 Respiratory Rate 16 16 Respiratory Effort Normal Non-Labored Respiratory Pattern Normal Blood Pressure 162/87 H 156/78 H Blood Pressure Mean 112 104 Pulse Ox 95 97 Oxygen Delivery Method Room Air Room Air 10/15/24 14:55 Temperature 98.3 F Temperature Tita (more content not included)... Normal [facility] Hemoglobin measurementOrdere d By: Kelsy Castle on 10-15-2024 Hemoglobin (Bld) [Mass/Vol] 12.6 g/dL Low 13.0-16.5 [facility] Comment on above: Performed By: #### L 100.0100, L500.2500 #### [facility] [address] [place], [place], [id number] Immature granulocytes/100 WB C Auto (Bld)Ordered By: Kelsy Castle on 10-15-2024 Immature granulocytes/100 WBC (Bld) 0.500 % 0.0-0.9 [facility] Comment on above: IG% - Immature Granu locytes (promyelocytes, myelocytes and metamyelocytes) > 1% indicates that a LEFT SHIFT is Present. Lactic Acidon 10-15-2024 Lactate [Moles/Vol] 1.7 mmol/L Normal 0.0-2.0 [facility] Comment on above: Order Comment: Y Performed By: #### L 503.6005 ####[facility] [address] [place], [place], [id number] Lactic acid measurementOrder ed By: Gemma Nava on 10-15-2024 Lactate [Moles/Vol] 1.7 mmol/L 0.0-2.0 [facility] Lymphocytes Auto (Unsp spec) [#/Vol]Ordered By: Kelsy Castle on 10-15-2024 Lymphocytes (Bld) [#/Vol] 1.28 10*3/uL 0.83-4.51 [facility] MCV (mean corpuscular volume ) determinationOrdered By: Kelsy Castle on 10-15-2024 MCV (RBC) [Entitic vol] 96.8 fL High 80-94 [facility] Comment on above: Performed By: #### L 100.0100, L500.2500 #### [facility] [address] [place], [address] Mean corpuscular hemoglobin (MCH) determinationOrdered By: Kelsy Castle on 10-15-2024 MCH (RBC) [Entitic mass] 30.6 pg Normal 27.0-32.0 [facility] Comment on above: Performed By: #### L 100.0100, L500.2500 #### [facility] [address] [place], [address] Mean corpuscular hemoglobin concentration (MCHC) determinationOrdered By: Kelsy Castle on 10-15-2024 MCHC (RBC) [Mass/Vol] 31.6 g/dL Low 32-36 [facility] Comment on above: Performed By: #### L 100.0100, L500.2500 #### [facility] [address] [place], [address] Mean platelet volume determi nationOrdered By: Kelsy Castle on 10-15-2024 Platelet mean volume (Bld) [Entitic vol] 9.4 fL Normal 6.2-12.0 [facility] Comment on above: Performed By: #### L 100.0100, L500.2500 #### [facility] [address] [place], [address] Monocyte percentageOrdered B y: Kelsy Castle on 10-15-2024 Monocytes/100 WBC (Bld) 6.4 % Normal 0-10 [facility] Comment on above: Performed By: #### L 100.0100, L500.2500 #### [facility] [address] [place], [address] Neutrophil percentageOrdered By: Kelsy Castle on 10-15-2024 Neutrophils/100 WBC (Bld) 65.3 % Normal 47-70 [facility] Comment on above: Performed By: #### L 100.0100, L500.2500 #### [facility] [address] [place], [address] Nucleated red blood cell per centageOrdered By: Kelsy Castle on 10-15-2024 Nucleated RBC/100 WBC (Bld) [Ratio] 0 % 0-5 [facility] Platelet countOrdered By: Kate Castle on 10-15-2024 Platelets (Bld) [#/Vol] 195 10*3/uL Normal 150-450 [facility] Comment on above: Performed By: #### L 100.0100, L500.2500 #### [facility] [address] [place], [address] Potassium measurement (mass/ volume)Ordered By: Kelsy Castle on 10-15-2024 Potassium [Moles/Vol] 4.0 mmol/L Normal 3.3-5.1 [facility] Comment on above: Hemolysis present, R esults could be affected. Result Comment: Hemo lysis present, Results??could be affected. ?? Performed By: #### L 100.0100, L500.2500 #### [facility] [address] [place], [address] Serum creatinine measurement (mass/volume)Ordered By: Kelsy Castle on 10-15-2024 Creatinine [Mass/Vol] 0.74 mg/dL Normal 0.70-1.20 [facility] Comment on above: Performed By: #### L 100.0100, L500.2500 #### [facility] [address] [place], [address] Serum glucose measurement (m ass/volume)Ordered By: Kelsy Castle on 10-15-2024 Glucose [Mass/Vol] 125 mg/dL High 70-99 [facility] Comment on above: Performed By: #### L 100.0100, L500.2500 #### [facility] [address] [place], [address] Serum or plasma calcium jose urement (mass/volume)Ordered By: Kelsy Csatle on 10-15-2024 Calcium [Mass/Vol] 9.0 mg/dL Normal 7.6-11.0 [facility] Comment on above: Performed By: #### L 100.0100, L500.2500 #### [facility] [address] [place], [address] Serum or plasma urea nitroge n measurement (mass/volume)Ordered By: Kelsy Castle on 10-15-2024 Urea nitrogen [Mass/Vol] 11 mg/dL Normal 4-19 [facility] Comment on above: Performed By: #### L 100.0100, L500.2500 #### [facility] [address] [place], [address] Sodium levelOrdered By: Mauro Castle on 10-15-2024 Sodium [Moles/Vol] 138 mmol/L Normal 133-145 [facility] Comment on above: Performed By: #### L 100.0100, L500.2500 #### [facility] [address] [place], [address] White blood cell (WBC) count Ordered By: Kelsy Castle on 10-15-2024 WBC (Bld) [#/Vol] 6.0 10*3/uL Normal 4.4-11.0 [facility] Comment on above: Performed By: #### L 100.0100, L500.2500 #### [facility] [address] [place], [address] CNPNon 10-03-2024 SISSYN Telephone (FPWADS) -- LINO WHEELER ([id number]) 1935 M Date Time Provider Department 10/03/24 KEYLA SCHUTLZ During your visit today, we recorded the following information about you: Bc Thomson Akanksha Colt 10/03/2024 1:58 PM Signed Lino is calling Keyla Schultz MD today to request Results (feet) Patient has been identified by name and birthdate. Duration of symptoms: 1 weeks Person calling: spouse: Radha Call patient at: [phone] (home) Was an appointment scheduled: No Closing statement: Akanksha Gregory Stephen Victoria LPN 10/03/2024 3:38 PM Signed Called and spoke with Radha, read results per Cesar Murray result note 10/02/24. Pt declines podiatry referral but would like results faxed to pain management doctor, Dr. Garnica at [facility]. Fax sent to [phone]. Allergies As of Date: 10/03/2024 Noted Allergy Reaction DILAUDID (HYDROMORPHONE (BULK)) 03/08/2017 1 - Mental Status Change PENICILLIN 01/14/2017 16 - Unknown TORADOL (KETOROLAC) 01/14/2017 9 - Itching Date Reviewed: 03/15/2024 Reviewed by: Delia Chaves LPN - Fully Assessed Reason for Visit: Results [95] Cmt: feet Prescriptions as of 10/03/2024 - allopurinol (ZYLOPRIM) 300 mg tablet TAKE 1 TABLET BY MOUTH ONCE DAILY - blood sugar diagnostic test strip Use with blood glucose test 3 times daily. - tamsulosin (FLOMAX) 0.4 mg TAKE 1 CAPSULE BY MOUTH ONCE DAILY - escitalopram oxalate (LEXAPRO) 5 mg tablet Take 1 tablet by mouth once daily. - SITagliptin phosphate (JANUVIA) 100 mg tablet Take 1 tablet by mouth once daily. - rosuvastatin (CRESTOR) 10 mg tablet TAKE 1 TABLET BY MOUTH ONCE DAILY - Lancets Use with blood glucose test 3 times daily. - insulin glargine (LANTUS SOLOSTAR U-100 INSULIN) 100 unit/mL (3 mL) INJECT 21 UNITS SUBCUTANEOUSLY EVERY MORNING - amitriptyline (ELAVIL) 25 mg tablet Take 25 mg by mouth daily at bedtime. - levETIRAcetam (KEPPRA) 500 mg tablet TAKE 1 TABLET BY MOUTH TWICE DAILY - gabapentin (NEURONTIN) 100 mg capsule Take 1 capsule by mouth two times a day for 30 days. - azelastine 0.1% nasal spray Use 1 [place] in each nostril two times a day. - atenolol (TENORMIN) 50 mg tablet TAKE ONE-HALF TABLET BY MOUTH ONCE DAILY - Insulin [place], Disposable, (PEN NEEDLE) 32 gauge x 5/32 Use to inject insulin twice daily. - oxyCODONE myristate (XTAMPZA ER) 9 mg CSpT Take 9 mg by mouth twice daily. - Insulin [place], Disposable, (PEN NEEDLE) 32 gauge x 5/32 Use to inject insulin up to 8 times per day. - Blood-Glucose Meter 1 Device three times daily. Test Three times a day. - alcohol swabs Use with blood glucose test 3 times daily. Meds Comments as of 07/23/2019: Poor historian, did not bring list of medication. Unable to verify today 07/22/2019 Problem List As Of Date 10/03/2024 Noted Resolved DKA (diabetic ketoacidosis) (HCC) [E11.10] 10/26/2021 08/04/2022 Epilepsy (HCC) [G40.909] 10/26/2021 Chronic back pain [M54.9, G89.29] 10/26/2021 Gout [M10.9] 10/26/2021 HTN (hypertension) [I10] 10/26/2021 Hyperlipidemia, mixed [E78.2] 10/26/2021 Prostate cancer (HCC) [C61] 10/26/2021 Chronic bilateral low back pain with bilateral *12/08/2021 DDD (degenerative disc disease), lumbar [M51.36*12/08/2021 Type 2 diabetes mellitus without complication, *12/08/2021 Encounter Status:Closed by STEPHEN BERRY on 10/03/24 Normal [facility] CBC panel Auto (Bld)on 09-26 Erythrocyte distribution width (RBC) [Ratio] 14.5 % Normal 11.5-15.0 [facility] Comment on above: Order Comment: Speci men Type: BLOOD SPECIMEN Ordering Facility: [facility] Address: [address] [place] [address] Performed By: #### 5 8410-2 #### [facility] CLIA [id number] [address] [place] [address] [facility] Hematocrit (Bld) [Volume fraction] 39.8 % Normal 39.0-51.0 [facility] Comment on above: Order Comment: Speci men Type: BLOOD SPECIMEN Ordering Facility: [facility] Address: [address] [place] [address] Performed By: #### 5 8410-2 #### [facility] CLIA [id number] [address] [place] [address] [place] Hemoglobin (Bld) [Mass/Vol] 12.2 g/dL Low 13.0-17.0 [facility] Comment on above: Order Comment: Speci men Type: BLOOD SPECIMEN Ordering Facility: [facility] Address: [address] [place] [address] Performed By: #### 5 8410-2 #### [facility] CLIA [id number] [address] [place] [address] [place] MCH (RBC) [Entitic mass] 30.0 pg Normal 26.0-34.0 [facility] Comment on above: Order Comment: Speci men Type: BLOOD SPECIMEN Ordering Facility: [facility] Address: [address] [place] [address] Performed By: #### 5 8410-2 #### [facility] CLIA [id number] [address] [place] [address] [place] MCHC (RBC) [Mass/Vol] 30.7 g/dL Normal 30.5-36.0 [facility] Comment on above: Order Comment: Speci men Type: BLOOD SPECIMEN Ordering Facility: [facility] Address: [address] [place] [address] Performed By: #### 5 8410-2 #### [facility] CLIA [id number] [address] [place] [address] [place] MCV (RBC) [Entitic vol] 98.0 fL Normal 80.0-100.0 [facility] Comment on above: Order Comment: Speci men Type: BLOOD SPECIMEN Ordering Facility: [facility] Address: [address] [place] [address] Performed By: #### 5 8410-2 #### [facility] CLIA [id number] [address] [place] [address] [place] Platelet mean volume (Bld) [Entitic vol] 10.6 fL Normal 9.0-12.7 [facility] Comment on above: Order Comment: Speci men Type: BLOOD SPECIMEN Ordering Facility: [facility] Address: [address] [place] [address] Performed By: #### 5 8410-2 #### [facility] CLIA [id number] [address] [place] [address] [place] Platelets (Bld) [#/Vol] 236 10*3/uL Normal 150-400 [facility] Comment on above: Order Comment: Speci men Type: BLOOD SPECIMEN Ordering Facility: [facility] Address: [address] [place] [address] Performed By: #### 5 8410-2 #### [facility] CLIA [id number] [address] [place] [address] [place] RBC (Bld) [#/Vol] 4.06 10*6/uL Low 4.20-6.00 [facility] Comment on above: Order Comment: Speci men Type: BLOOD SPECIMEN Ordering Facility: [facility] Address: [address] [place] [address] Performed By: #### 5 8410-2 #### [facility] CLIA [id number] [address] [place] [address] [place] WBC (Bld) [#/Vol] 6.76 10*3/uL Normal 3.70-11.00 [facility] Comment on above: Order Comment: Speci men Type: BLOOD SPECIMEN Ordering Facility: [facility] Address: [address] [place] [address] Performed By: #### 5 8410-2 #### [facility] CLIA [id number] [address] [place] [address] [facility] Comprehensive metabolic 2000 panelon 09-26-2024 Albumin [Mass/Vol] 3.5 g/dL Low 3.9-4.9 [facility] Comment on above: Order Comment: Speci men Type: BLOOD SPECIMEN Ordering Facility: [facility] Address: [address] [place] [address] Performed By: #### 3 084-1, 61600-0 #### [facility] CLIA [id number] [address] [place] [address] [place] ALP [Catalytic activity/Vol] 85 U/L Normal 38-113 [facility] Comment on above: Order Comment: Speci men Type: BLOOD SPECIMEN Ordering Facility: [facility] Address: [address] [place] [address] Performed By: #### 3 084-1, 41853-7 #### [facility] CLIA [id number] [address] [place] [address] [facility] [place] ALT With P-5'-P [Catalytic activity/Vol] 11 U/L Normal 10-54 [facility] Comment on above: Order Comment: Speci men Type: BLOOD SPECIMEN Ordering Facility: [facility] Address: [address] [place] [address] Performed By: #### 3 084-1, 66180-2 #### [facility] CLIA [id number] [address] [place] [address] [place] Anion gap [Moles/Vol] 8 mmol/L Normal 8-15 [facility] Comment on above: Order Comment: Speci men Type: BLOOD SPECIMEN Ordering Facility: [facility] Address: [address] [place] [address] Performed By: #### 3 084-1, 34854-9 #### [facility] CLIA [id number] [address] [place] [address] [place] AST With P-5'-P [Catalytic activity/Vol] 20 U/L Normal 14-40 [facility] Comment on above: Order Comment: Speci men Type: BLOOD SPECIMEN Ordering Facility: [facility] Address: [address] [place] [address] Performed By: #### 3 084-1, 31213-6 #### [facility] CLIA [id number] [address] [place] [address] [place] Bilirubin [Mass/Vol] 0.8 mg/dL Normal 0.2-1.3 [facility] Comment on above: Order Comment: Speci men Type: BLOOD SPECIMEN Ordering Facility: [facility] Address: [address] [place] [address] Performed By: #### 3 084-1, 90067-9 #### [facility] CLIA [id number] [address] [place] [address] [place] Calcium [Mass/Vol] 9.3 mg/dL Normal 8.5-10.2 [facility] Comment on above: Order Comment: Speci men Type: BLOOD SPECIMEN Ordering Facility: [facility] Address: [address] [place] [address] Performed By: #### 3 084-1, 02559-5 #### [facility] CLIA [id number] [address] [place] [address] [place] Chloride [Moles/Vol] 103 mmol/L Normal 98-107 [facility] Comment on above: Order Comment: Speci men Type: BLOOD SPECIMEN Ordering Facility: [facility] Address: [address] [place], [place] [address] Performed By: #### 3 084-1, 49438-5 #### [facility] CLIA [id number] [address] [place] [address] [place] CO2 [Moles/Vol] 28 mmol/L Normal 22-30 [facility] Comment on above: Order Comment: Max white Type: BLOOD SPECIMEN Ordering Facility: [facility] Address: [address] [place] [address] Performed By: #### 3 084-1, 12019-2 #### [facility] CLIA [id number] [address] [place] [id number] [place] Creatinine [Mass/Vol] 0.93 mg/dL Normal 0.73-1.22 [facility] Comment on above: Order Comment: Max white Type: BLOOD SPECIMEN Ordering Facility: [facility] Address: [address] [place] [address] Performed By: #### 3 084-1, 50492-9 #### [facility] CLIA [id number] [address] Creatinine and Glomerular filtration rate.predicted panel (S/P/Bld) 78 mL/min/1.73m??? Normal >=60 [facility] Comment on above: Order Comment: Max white Type: BLOOD SPECIMEN Ordering Facility: [facility] Address: [address] [place] [address] Result Comment: Morena mated Glomerular Filtration Rate (eGFR) is calculated using the 2020 CKD-EPI creatinine equation. This equation utilizes serum creatinine, sex, and age as parameters. The creatinine assay has traceable calibration to isotope dilution-mass spectrometry. Refer to KDIGO guidelines for clinical interpretation. In patients with unstable renal function, e.g. those with acute kidney injury, the eGFR may not accurately reflect actual GFR. Performed By: #### 3 084-1, 42551-8 #### [facility] CLIA [id number] [address] [place] [id number] [place] Glucose [Mass/Vol] 122 mg/dL High 74-99 [facility] Comment on above: Order Comment: Max white Type: BLOOD SPECIMEN Ordering Facility: [facility] Address: [address], [place] [address] Result Comment: The [place] Diabetes Association (ADA) provides guidance for cutoff values for fasting glucose and random glucose. The ADA defines fasting as no caloric intake for at least 8 hours. Fasting plasma glucose results between 100 to 125 mg/dL indicate increased risk for diabetes (prediabetes). Fasting plasma glucose results greater than or equal to 126 mg/dL meet the criteria for diagnosis of diabetes. In the absence of unequivocal hyperglycemia, results should be confirmed by repeat testing. In a patient with classic symptoms of hyperglycemia or hyperglycemic crisis, random plasma glucose results greater than or equal to 200 mg/dL meet the criteria for diagnosis of diabetes. Reference: Standards of Medical Care in Diabetes 2016, [place] Diabetes Association. Diabetes Care. 2016.39(Suppl 1). Performed By: #### 3 084-1, 68389-5 #### [facility] CLIA [id number] [address] [place] [address] [place] Potassium [Moles/Vol] 4.4 mmol/L Normal 3.7-5.1 [facility] Comment on above: Order Comment: Max white Type: BLOOD SPECIMEN Ordering Facility: [facility] Address: [address] [place] [address] Performed By: #### 3 084-, 21735-9 #### [facility] CLIA [id number] [address] [place] [address] [place] Protein [Mass/Vol] 6.5 g/dL Normal 6.3-8.0 [facility] Comment on above: Order Comment: Max white Type: BLOOD SPECIMEN Ordering Facility: [facility] Address: [address] [place] [address] Performed By: #### 3 084-, 15405-7 #### [facility] CLIA [id number] [address] [place] [address] [place] Sodium [Moles/Vol] 139 mmol/L Normal 136-144 [facility] Comment on above: Order Comment: Max white Type: BLOOD SPECIMEN Ordering Facility: [facility] Address: [address] [place] [address] Performed By: #### 3 084-1, 30206-7 #### [facility] CLIA [id number] [address] [place] [address] [place] Urea nitrogen [Mass/Vol] 18 mg/dL Normal 9-24 [facility] Comment on above: Order Comment: Speci men Type: BLOOD SPECIMEN Ordering Facility: [facility] Address: [address] [place] [address] Performed By: #### 3 084-1, 41749-2 #### [facility] CLIA [id number] [address] [place] [address] [place] HbA1c (Bld)on 09-26-2024 Average glucose Estimated from glycated hemoglobin (Bld) [Mass/Vol] 134 mg/dL Normal [facility] Comment on above: Order Comment: Speci men Type: BLOOD SPECIMEN Ordering Facility: [facility] Address: [address] [place] [address] Result Comment: eAG: (Estimated average glucose) is a calculated value from HgbA1c and is insurance service representative of the average blood glucose level in the last 2-3 month period. Performed By: #### 5 5454-3 #### [facility] CLIA [id number] [address] [place] [address] [place] HbA1c (Bld) [Mass fraction] 6.3 % High 4.3-5.6 [facility] Comment on above: Order Comment: Speci men Type: BLOOD SPECIMEN Ordering Facility: [facility] Address: [address] [place] [address] Result Comment: Amer [place] Diabetes Association guidelines indicate that patients with HgbA1c in the range 5.7-6.4% are at increased risk for development of diabetes, and intervention by lifestyle modification may be beneficial. HgbA1c greater or equal to 6.5% is considered diagnostic of diabetes. Performed By: #### 5 5454-3 #### [facility] CLIA [id number] [address] [place] [address] [place] PSA SerPl-mCncon 09-26-2024 Prostate specific Ag [Mass/Vol] 0.46 ng/mL Normal <2.60 [facility] Comment on above: Order Comment: Speci men Type: BLOOD SPECIMEN Ordering Facility: [facility] Address: [address] [place] [address] Result Comment: Tota l PSA test methodology used is the Electrochemiluminescence Immunoassay by [employer]. Total PSA values by differing methodologies cannot be interchanged. Performed By: #### 2 857-1 #### [facility] CLIA [id number] [address] Urate SerPl-mCncon 5 Urate [Mass/Vol] 2.8 mg/dL Low 4.0-8.1 [facility] Comment on above: Order Comment: Speci men Type: BLOOD SPECIMEN Ordering Facility: [facility] Address: [address] [place] [address] Performed By: #### 3 084-1, 85319-7 #### [facility] CLIA [id number] [address] [place] [address] XR FOOT 3V AP/LAT/OBL BILon 09-26-2024 XR FOOT 3V AP/LAT/OBL RABIA * * *Final Report* * * DATE OF EXAM: Sep 26 2024 12:16PM LDX 5555 - XR FOOT 3V AP/LAT/OBL RABIA / PROCEDURE REASON: multiple diagnoses * * * * Physician Interpretation * * * * EXAMINATION / TECHNIQUE: XR FOOT 3V AP/LAT/OBL RABIA HISTORY: Patient states bilat foot pain after recent fall. Injury of left foot, initial encounter Injury of right foot, initial encounter Pedal edema Foot pain, bilateral COMPARISON: None. RESULT: The bones are diffusely demineralized. No acute fracture or dislocation in either foot. 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 No osseous erosion in either foot. IMPRESSION: Degenerative changes as described. No acute bony abnormality. Bisque Placer: HUNG Transcribe Date/Time: Sep 30 2024 11:24A Dictated by : KRISH SOLIMAN MD This examination was interpreted and the report reviewed and electronically signed by: KRISH SOLIMAN MD on Sep 30 2024 11:25AM EST [id number] Normal [facility] levETIRAcetam SerPl-mCncon 0 09-26-2024 levETIRAcetam [Mass/Vol] 32.2 ug/mL Normal 12.0-46.0 [facility] Comment on above: Order Comment: Speci men Type: BLOOD SPECIMEN Ordering Facility: [facility] Address: [address] [place] [address] Result Comment: This test is not suitable for patients receiving treatment with the drug brivaracetam (Briviact). The drug causes an interference that may lead to falsely elevated levetiracetam results. Reference ranges and high/low indicator flags are provided as general guidelines only. The treating physician must determine appropriate target levels/dosing based on the specific clinical situation. This test was developed, and its performance characteristics determined by the [facility] Department of Pathology and Laboratory Medicine. It has not been cleared or approved by the FDA. The [facility] Department of Pathology and Laboratory Medicine is regulated under CLIA as qualified to perform high-complexity testing. This test is used for clinical purposes. It should not be regarded as investigational or for research. Performed By: #### 3 0471-7 #### [facility] CLIA [id number] [address] [place] [address] [place] [facility] Isaiah 08-28-2024 SISSY[place] Telephone (FPWAKULWINDER) -- LINO WHEELER ([id number]) 1935 M [place] Date Time Provider Department 08/28/24 KEYLA SCHULTZ During your visit today, we recorded the following information about you: Cinthya Najera 08/28/2024 12:13 PM Signed Pts dropped off forms that need completed by PCP. Placed in mailbox. Stephen Berry LPN 08/28/2024 1:35 PM Signed Received chronic condition release of information request from [facility]. Placed in provider's inbox for review. Route to [place] fax Stephen Berry LPN 08/28/2024 5:05 PM Signed Called and notified Radha the area where pt is supposed to sign was left blank. Radha states she would like the form faxed anyway. Fax sent. Allergies As of Date: 08/28/2024 Noted Allergy Reaction DILAUDID (HYDROMORPHONE (BULK)) 03/08/2017 1 - Mental Status Change PENICILLIN 01/14/2017 16 - Unknown TORADOL (KETOROLAC) 01/14/2017 9 - Itching Date Reviewed: 03/15/2024 Reviewed by: Delia Chaves LPN - Fully Assessed Reason for Visit: Forms [913] Prescriptions as of 08/28/2024 - tamsulosin (FLOMAX) 0.4 mg TAKE 1 CAPSULE BY MOUTH ONCE DAILY - escitalopram oxalate (LEXAPRO) 5 mg tablet Take 1 tablet by mouth once daily. - SITagliptin phosphate (JANUVIA) 100 mg tablet Take 1 tablet by mouth once daily. - rosuvastatin (CRESTOR) 10 mg tablet TAKE 1 TABLET BY MOUTH ONCE DAILY - Lancets Use with blood glucose test 3 times daily. - insulin glargine (LANTUS SOLOSTAR U-100 INSULIN) 100 unit/mL (3 mL) INJECT 21 UNITS SUBCUTANEOUSLY EVERY MORNING - amitriptyline (ELAVIL) 25 mg tablet Take 25 mg by mouth daily at bedtime. - levETIRAcetam (KEPPRA) 500 mg tablet TAKE 1 TABLET BY MOUTH TWICE DAILY - allopurinol (ZYLOPRIM) 300 mg tablet Take 1 tablet by mouth once daily. - gabapentin (NEURONTIN) 100 mg capsule Take 1 capsule by mouth two times a day for 30 days. - blood sugar diagnostic test strip Use with blood glucose test 2 times daily. - azelastine 0.1% nasal spray Use 1 [place] in each nostril two times a day. - atenolol (TENORMIN) 50 mg tablet TAKE ONE-HALF TABLET BY MOUTH ONCE DAILY - Insulin [place], Disposable, (PEN NEEDLE) 32 gauge x 5/32 Use to inject insulin twice daily. - oxyCODONE myristate (XTAMPZA ER) 9 mg CSpT Take 9 mg by mouth twice daily. - Insulin [place], Disposable, (PEN NEEDLE) 32 gauge x 5/32 Use to inject insulin up to 8 times per day. - Blood-Glucose Meter 1 Device three times daily. Test Three times a day. - alcohol swabs Use with blood glucose test 3 times daily. Meds Comments as of 07/23/2019: Poor historian, did not bring list of medication. Unable to verify today 07/22/2019 Problem List As Of Date 08/28/2024 Noted Resolved DKA (diabetic ketoacidosis) (HCC) [E11.10] 10/26/2021 08/04/2022 Epilepsy (HCC) [G40.909] 10/26/2021 Chronic back pain [M54.9, G89.29] 10/26/2021 Gout [M10.9] 10/26/2021 HTN (hypertension) [I10] 10/26/2021 Hyperlipidemia, mixed [E78.2] 10/26/2021 Prostate cancer (HCC) [C61] 10/26/2021 Chronic bilateral low back pain with bilateral *12/08/2021 DDD (degenerative disc disease), lumbar [M51.36*12/08/2021 Type 2 diabetes mellitus without complication, *12/08/2021 Encounter Status:Closed by STEPHEN [facility] -- LINO WHEELER ([id number]) 1935 M Date Time Provider Department 03/26/24 KEYLA SCHULTZ During your visit today, we recorded the following information about you: Veronica Rothman 03/26/2024 9:40 AM Signed Patient's called to refill his lancets rx. However she said it has to be Aqualance lancets specifically. Wants it sent to [facility] in [place]. Kate Melchor RN 03/26/2024 11:13 AM Signed Last office visit 03/15/24. Pended with Veronica in comments. Please review. Requested Prescriptions Pending Prescriptions Disp Refills Lancets 300 Each 5 Sig: Use with blood glucose test 3 times daily. Allergies As of Date: 03/26/2024 Noted Allergy Reaction DILAUDID (HYDROMORPHONE (BULK)) 03/08/2017 1 - Mental Status Change PENICILLIN 01/14/2017 16 - Unknown TORADOL (KETOROLAC) 01/14/2017 9 - Itching Date Reviewed: 03/15/2024 Reviewed by: Delia Chaves LPN - Fully Assessed Reason for Visit: rx refill; not on current med list [Other] Order(s):LancetsUse with blood glucose test 3 times daily.Disp: 300 EachRfl: 5 Prescriptions as of 03/26/2024 - Lancets Use with blood glucose test 3 times daily. - insulin glargine (LANTUS SOLOSTAR U-100 INSULIN) 100 unit/mL (3 mL) INJECT 21 UNITS SUBCUTANEOUSLY EVERY MORNING - amitriptyline (ELAVIL) 25 mg tablet Take 25 mg by mouth daily at bedtime. - escitalopram oxalate (LEXAPRO) 5 mg tablet Take 1 tablet by mouth once daily. - JANUVIA 100 mg tablet take 1 tablet by mouth once daily - levETIRAcetam (KEPPRA) 500 mg tablet TAKE 1 TABLET BY MOUTH TWICE DAILY - allopurinol (ZYLOPRIM) 300 mg tablet Take 1 tablet by mouth once daily. - tamsulosin (FLOMAX) 0.4 mg Take 1 capsule by mouth once daily. - gabapentin (NEURONTIN) 100 mg capsule Take 1 capsule by mouth two times a day for 30 days. - blood sugar diagnostic test strip Use with blood glucose test 2 times daily. - azelastine 0.1% nasal spray Use 1 [place] in each nostril two times a day. - atenolol (TENORMIN) 50 mg tablet TAKE ONE-HALF TABLET BY MOUTH ONCE DAILY - rosuvastatin (CRESTOR) 10 mg tablet Take 1 tablet by mouth once daily. - Insulin [place], Disposable, (PEN NEEDLE) 32 gauge x 32 Use to inject insulin twice daily. - oxyCODONE myristate (XTAMPZA ER) 9 mg CSpT Take 9 mg by mouth twice daily. - Insulin [place], Disposable, (PEN NEEDLE) 32 gauge x Use to inject insulin up to 8 times per day. - Blood-Glucose Meter 1 Device three times daily. Test Three times a day. - alcohol swabs Use with blood glucose test 3 times daily. Meds Comments as of 07/23/2019: Poor historian, did not bring list of medication. Unable to verify today 07/22/2019 Problem List As Of Date 03/26/2024 Noted Resolved DKA (diabetic ketoacidosis) (HCC) [E11.10] 10/26/2021 08/04/2022 Epilepsy (HCC) [G40.909] 10/26/2021 Chronic back pain [M54.9, G89.29] 10/26/2021 Gout [M10.9] 10/26/2021 HTN (hypertension) [I10] 10/26/2021 Hyperlipidemia, mixed [E78.2] 10/26/2021 Prostate cancer (HCC) [C61] 10/26/2021 Chronic bilateral low back pain with bilateral *12/08/2021 DDD (degenerative disc disease), lumbar [M51.36]12/08/2021 Type 2 diabetes mellitus without complication, *12/08/2021 Prescriptions ordered this encounter Disp Refills Start End LANCETS 300 * 5 03/26/2024 Cmt: Aqualance Brand Sig: Use with blood glucose test 3 times daily. Medications Discontinued During This Encounter Prescriptions - Lancets lancets (Discontinued) Use with blood glucose test 2 times daily. Encounter Status:Closed by CESAR MANJARREZ on 03/26/24 [facility] CNOVcorine 03-15-2024 CNOV Office Visit (FPWADS ) -- LINO WHEELER ([id number]) 1935 [facility] Date Time Provider Department 03/15/24 10:40 AM CESAR MANJARREZ During your visit today, we recorded the following information about you: Pulse Blood pressure 84/minute 119/69 Cesar Manjarrez APRN.CNP 03/15/2024 10:04 AM Signed Screening schedule The following prevention plan is recommended: Pneumococcal Vaccine: 65+(1 of 2 - PCV) Never done Urine Albumin:Creatinine Ratio Never done Dilated Retinal Exam Never done Depression Screening Never done Anxiety Screening Never done Shingrix Vaccine(1 of 2) Never done RSV Vaccine(1 - 1-dose 60+ series) Never done Diabetic Foot Exam due on 11/24/2022 Advance Directive Discussion Never done Covid-19 Vaccine(2022- season) due on 08/15/2023 WHAT YOU CAN DO TO PREVENT FALLS Many falls can be prevented. By making some changes, you can lower your chances of falling. Four things YOU can do to prevent falls for you* and your caregiver 1. Begin a regular exercise program Exercise is one of the most important ways to lower your chances of falling. It makes you stronger and helps you feel better. Exercises that improve balance and coordination (like Dewey Chi) are the most helpful. Lack of exercise leads to weakness and increases your chances of falling. Ask your doctor or health care provider about the best type of exercise program for you. 2. Have your health care provider review your medicines Have your doctor or pharmacist review all the medicines you take, even upgy-vcp-luhgfqq medicines. As you get older, the way medicines work in your body can change. Some medicines, or combinations of medicines, can make you sleepy or dizzy and can cause you to fall. 3. Have your vision checked Have your eyes checked by an eye doctor at least once a year. You may be wearing the wrong glasses or have a condition like glaucoma or cataracts that limits your vision. Poor vision can increase your chances of falling. 4. Make your home safer About half of all falls happen at home. To make your home safer: Remove things you can trip over (like papers, books, clothes, and shoes) from stairs and places where you walk. Remove small throw rugs or use double-sided tape to keep the rugs from slipping. Keep items you use often in cabinets you can reach easily without using a step stool. Have grab bars put in next to your toilet and in the tub or shower. Use non-slip mats in the bathtub and on shower floors. Improve the lighting in your home. As you get older, you need brighter lights to see well. Hang light-weight curtains or shades to reduce glare. Have handrails and lights put in on all staircases. Wear shoes both inside and outside the house. Avoid going barefoot or wearing slippers. For more information, contact: Centers for Disease Control and Prevention www.cdc.gov/injury * This information may not apply if you have certain medical conditions. Cesar Manjarrez APRN.SISSY 03/15/2024 1:15 PM Signed This note was created using [employer]. Subjective Lino Wheeler is a 88 year old male. Patient here with spouse. Patient is home bound, the only way he can get out of the house is if his son comes over and carries him into the car. Two nurses had to assist spouse getting patient out of the car in the parking lot today and into the wheelchair to get him into this office. Patient is not eligible for visiting physician where they live and they're not willing to move at this time. DMII: taking Lantus 18 units in the morning, Januvia 100 mg in the evening. Blood sugars in the last month running 83-213. A1C today 6.3%. Sees pain management through [facility]. Managed on oxycodone, gabapentin, amitriptyline to help with sleep. Pain management doctor was going to re-refer to physical therapy to see if they could get more sessions in the home to help with his generalized weakness. HLD: takes Crestor daily, due for fasting labs in September. LDL in September 2022 was 37. HTN: takes atenolol daily. History of prostate cancer 20+ years ago, monitors PSA yearly. Takes flomax daily. Epilepsy: hasn't had a seizure in at least 30 years. Stable on keppra. Notes depressed mood, denies anxiety. says he's irritable and grouchy. Patient has never been treated for mood with medications or counseling. The history is provided by the patient and the spouse. Review of Systems Constitutional: Negative for unexpected weight change. Respiratory: Negative for shortness of breath. Cardiovascular: Negative for chest pain. Gastrointestinal: Negative for abdominal pain. Musculoskeletal: Positive for back pain and gait problem. Skin: Negative for rash. Allergic/Immunologic: Positive for immunocompromised state. Neurological: Positive for weakness. Psychiatric/Behavioral: Positive for dysphoric mood and (more content not included)... Normal [facility] HEMOGLOBIN A1C (POC)on 03-15 HbA1c (Bld) [Mass fraction] 6.3 % Abnormal 4.3 - 5.6 % [facility] Comment on above: Location:[facility], [address] [place] [address], [facility] Point of care (POC) Hemoglobin A1c (HGBA1C) testing is intended to assess glucose control and provide a management tool for patients known to have diabetes and their healthcare providers. Target HGBA1C levels may depend on specific clinical circumstances. POC HGBA1C is not intended for use as a diagnostic or screening test; laboratory-based testing should be used for diagnostic purposes. The following information is supplemental and may not be applicable to specific diabetes management situations: The POC device seat cover installer provides a normal range of 4.2% to 6.5% for the HGBA1C POC test. However, the [employer] Diabetes Association guidelines indicate that patients with HGBA1C in the range of 5.7% to 6.4% are at increased risk for development of diabetes and that intervention by lifestyle modification may be beneficial. A HGBA1C level greater than or equal to 6.5% is considered diagnostic of diabetes, pending confirmatory testing. Use of HGBA1C testing to evaluate glucose control may not be appropriate for patients with hemoglobin variants or other conditions (e.g. anemia) that alter red blood cell lifespan. Interpretation and review of laboratory results Abnormal [facility] Isaiah 02-03-2024 SISSYN Telephone (IRAJ) -- LINO WHEELER ([id number]) [address] [facility] Date Time Provider Department 02/03/24 KEYLA SCHULTZ During your visit today, we recorded the following information about you: Delia Chaves LPN 02/03/2024 2:08 PM Signed Received 02/03/2024 from [facility]. Placed in provider's inbox for review. Route to [place] for faxing Allergies As of Date: 02/03/2024 Noted Allergy Reaction DILAUDID (HYDROMORPHONE (BULK)) 03/08/2017 1 - Mental Status Change PENICILLIN 01/14/2017 16 - Unknown TORADOL (KETOROLAC) 01/14/2017 9 - Itching Date Reviewed: 04/02/2023 Reviewed by: Pham Hartley, MARCIAL - Fully Assessed Reason for Visit: Received Outside Medical Records [[id number]] Cmt: [facility] Order for glucose test strips 02/02/2024 Prescriptions as of 02/03/2024 - levETIRAcetam (KEPPRA) 500 mg tablet TAKE 1 TABLET BY MOUTH TWICE DAILY - allopurinol (ZYLOPRIM) 300 mg tablet Take 1 tablet by mouth once daily. - tamsulosin (FLOMAX) 0.4 mg Take 1 capsule by mouth once daily. - gabapentin (NEURONTIN) 100 mg capsule Take 1 capsule by mouth two times a day for 30 days. - blood sugar diagnostic test strip Use with blood glucose test 2 times daily. - azelastine 0.1% nasal spray Use 1 [place] in each nostril two times a day. - insulin glargine (LANTUS SOLOSTAR U-100 INSULIN) 100 unit/mL (3 mL) Inject 10 Units subcutaneously every morning. - JANUVIA 100 mg tablet take 1 tablet by mouth once daily - atenolol (TENORMIN) 50 mg tablet TAKE ONE-HALF TABLET BY MOUTH ONCE DAILY - rosuvastatin (CRESTOR) 10 mg tablet Take 1 tablet by mouth once daily. - flash glucose scanning reader (FREESTYLE NICCI 2 READER) 1 Each every year. To monitor blood sugar continuously. E11.65. patient on insulin therapy - Insulin [place], Disposable, (PEN NEEDLE) 32 gauge x 5/32 Use to inject insulin twice daily. - oxyCODONE myristate (XTAMPZA ER) 9 mg CSpT Take 9 mg by mouth twice daily. - Insulin [place], Disposable, (PEN NEEDLE) 32 gauge x 5/32 Use to inject insulin up to 8 times per day. - Blood-Glucose Meter 1 Device three times daily. Test Three times a day. - Lancets lancets Use with blood glucose test 3 times daily. - alcohol swabs Use with blood glucose test 3 times daily. Meds Comments as of 07/23/2019: Poor historian, did not bring list of medication. Unable to verify today 07/22/2019 Problem List As Of Date 02/03/2024 Noted Resolved DKA (diabetic ketoacidosis) (HCC) [E11.10] 10/26/2021 08/04/2022 Epilepsy (HCC) [G40.909] 10/26/2021 Chronic back pain [M54.9, G89.29] 10/26/2021 Gout [M10.9] 10/26/2021 HTN (hypertension) [I10] 10/26/2021 Hyperlipidemia, mixed [E78.2] 10/26/2021 Prostate cancer (HCC) [C61] 10/26/2021 Chronic bilateral low back pain with bilateral *12/08/2021 DDD (degenerative disc disease), lumbar [M51.36]12/08/2021 Type 2 diabetes mellitus without complication, *12/08/2021 Encounter Status:Closed by DELIA CHAVES on 02/03/24 Normal [facility] HEMOGLOBIN A1C (POC)on 03-16 HbA1c (Bld) [Mass fraction] 5.8 % 4.2 - 5.6 % [facility] Laboratory - Drug toxicology on 11-27-2021 Amphetamines Ql (U) Negative <1000 ng/[facility]: Benzodiazepines Ql (U) Negative < 200 ng/mL [facility] Work Phone: Cannabinoids Screen Ql (U) Negative < 50 ng/mL [facility] Work Phone: Cocaine Ql (U) Negative < 300 ng/mL [facility] Work Phone: Opiates Ql (U) Positive < 300 ng/mL [facility] Work Phone: No Panel Informationon 11-27 MDMA (Ecstasy) Screen Negative < 500 ng/mL [facility] Work Phone: Miscellaneous Test See comment [facility] Work Phone: Comment on above: [id number] 6+OXYCODONE-B UND (ng/mL) DRUG RESULT SCREEN CUTOFF____ Amphetamines,Urine Negative ng/mL 1000 Amphetamine test includes Amphetamine and Methamphetamine.Barbiturates Negative ng/mL 200Benzodiazepines Negative ng/mL 200Cannabinoid Negative ng/mL 20Cocaine (Metab) Negative ng/mL 300Opiates Negative ng/mL 300 Opiates test includes Codeine, Morphine, Hydromorphone, Hydrocodone. Oxycodone/Oxymorphone,Urine Positive ng/mL 300 Test includes Oxydodone and Oxymorphone. Oxycodone Positive Oxycodone Conf, MS, UR 1934 ng/mL 300 Oxymorphone Positive Oxymorphone Conf, MS, UR >3000 ng/mL 300 TESTING PERFORMED AT [facility]. ORIGINAL REPORT ON FILE IN LAB CONTAINS ADDITIONAL TEST SITE INFORMATION. Urine Barbiturates Screen Negative < 200 ng/mL [facility] Work Phone: Urine Drug Screen Comment [facility] Work Phone: Comment on above: CONFIRMATORY TESTING FOR ALL POSITIVE URINE DRUG SCREENRESULTS WILL ONLY BE SENT OUT UPON PHYSICIAN ORDER. VISTA Urine Drug Screen methods provide only preliminaryanalytical test results. A more specific alternate chemicalmethod must be used in order to obtain a confirmedanalytical result. Gas chromatography/mass spectrometery(GC/MS) is the preferred confirmatory method. Clinicalconsideration and professional judgement should be appliedto any drug of abuse test result, particularly whenpreliminary positive results are used. URINE TCA TESTING MUST BE ORDERED SEPARATELY. USE TESTMNEMONIC: [facility] Urine Methadone Screen Negative < 300 ng/mL [facility] Work Phone: Urine phencyclidine (PCP) de tectionon 11-27-2021 Phencyclidine Ql (U) Negative < 25 ng/mL [facility] Work Phone: C-PEPTIDE BLDon 11-24-2021 C peptide [Mass/Vol] 1.20 ng/mL Normal 0.81-3.85 [facility] Comment on above: Order Comment: [facility] Type: BLOOD SPECIMEN Ordering Facility: [facility] Address: [address] [place] [address] Performed By: #### 2 4321-2 #### [facility] CLIA [id number] [address] [place] [address] [place] GAD65 Ab Ser-aCncon 11-25-19 Glutamate decarboxylase 65 Ab Qn (S) <5.0 Normal <=5.0 [facility] Comment on above: Order Comment: [facility] Type: BLOOD SPECIMEN Ordering Facility: [facility] Address: [address] [place] [address] Result Comment: Anti -glutamic acid decarboxylase antibody (GAD65) test usually in conjunction with another test such as IA-2 antibody is used as an aid in establishing the autoimmune nature of previously-diagnosed type I diabetes mellitus or in predicting of progression to type I diabetes mellitus in patients with certain autoimmune diseases including autoimmune gastritis among others. It is also used as an aid in diagnosis of stiff person syndrome and certain autoimmune nervous system diseases. Clinical correlation is required. Performed By: #### 2 4321-2 #### [facility] CLIA [id number] [address] [place] [address] [place] GLUCOSE RANDOM [facility] 022 Glucose [Mass/Vol] 126 mg/dL High 74-99 [facility] Comment on above: Order Comment: [facility] Type: BLOOD SPECIMENOrdering Facility: [facility] Address: [address] [place] [address] Result Comment: The [place] Diabetes Association (ADA) provides guidance for cutoff values for fasting glucose and random glucose. The ADA defines fasting as no caloric intake for at least 8 hours. Fasting plasma glucose results between 100 to 125 mg/dL indicate increased risk for diabetes (prediabetes). Fasting plasma glucose results greater than or equal to 126 mg/dL meet the criteria for diagnosis of diabetes. In the absence of unequivocal hyperglycemia, results should be confirmed by repeat testing. In a patient with classic symptoms of hyperglycemia or hyperglycemic crisis, random plasma glucose results greater than or equal to 200 mg/dL meet the criteria for diagnosis of diabetes. Reference: Standards of Medical Care in Diabetes 2016, [employer] Diabetes Association. Diabetes Care. 2016.39(Suppl 1). Performed By: #### G DESHAWN ####[facility] [id number] [place] [address] [place] Glucose [Mass/Vol] 126 mg/dL High 74 - 99 mg/dL [facility] Glutamate decarboxylase 65 A b Qn (S)on 11-24-2021 GLUTAMIC ACID DECARBOXYLAS AB QUALITATIVE Negative Normal Negative [facility] Comment on above: Order Comment: Max white Type: BLOOD SPECIMEN Ordering Facility: [facility] Address: [address] [place] [address] Performed By: #### 2 4321-2 #### [facility] CLIA [id number] [address] [place] INSULIN ANTIBODY BLDon 11-24 Insulin Ab Qn (S) <0.4 Normal <0.4 [facility] Comment on above: Order Comment: Max white Type: BLOOD SPECIMEN Ordering Facility: [facility] Address: [address] [place] [address] Result Comment: Anti -insulin antibody test is used as an aid in diagnosis and prognosis of autoimmune diabetes mellitus in combination with other tests such as anti-GAD65 and anti-IA-2 antibody. A single negative result cannot rule out autoimmune diabetes mellitus. The test is not reliable in patients who had previously received exogenous insulin. Clinical correlation is required. Performed By: #### 2 4321-2 #### [facility] CLIA [id number] [address] [place] [address] [place] INSULIN ANTIBODY, QUALITATIVE Negative Normal Negative [facility] Comment on above: Order Comment: Max white Type: BLOOD SPECIMEN Ordering Facility: [facility] Address: [address] [place] [address] Performed By: #### 2 4321-2 #### [facility] CLIA [id number] [address] [place] [address] [facility] [place] INSULINOMA ASSOCIATED ANTIBO DY 2on 11-24-2021 IA 2 ANTIBODY BLOOD <5.4 Normal <7.5 [facility] Comment on above: Order Comment: Speci men Type: BLOOD SPECIMENOrdering Facility: [facility] Address: [address] [place] [address] Result Comment: Anti -insulinoma associated antigen 2 (IA-2) antibody test is used as an aid in diagnosis of type I diabetes mellitus, to predict the risk of progression to type I diabetes mellitus among susceptible individuals, and to predict the necessity of insulin therapy in adult-onset diabetes mellitus. Clinical correlation is required. Performed By: #### I A2AB ####[facility] [id number] [facility] [id number] ISLET CELL ABon 11-24-2021 ISLET CELL AB <1:4 Normal <1:4 [facility] Comment on above: Order Comment: Speci men Type: BLOOD SPECIMENOrdering Facility: [facility] Address: [address] [place] [address] Result Comment: INTE RPRETIVE INFORMATION: Islet Cell Ab, IgG Islet cell antibodies (ICAs) are associated with type 1 diabetes (TID), an autoimmune endocrine disorder. ICAs may be present years before the onset of clinical symptoms. To calculate Juvenile Diabetes Foundation (JDF) units: multiply the titer x 5 (1:8 8 x 5 = 40 JDF Units). This test was developed and its performance characteristics determined by [facility]. It has not been cleared or approved by the US Food and Drug Administration. This test was performed in a CLIA certified laboratory and is intended for clinical purposes. Performed By: [facility] [address] [place] [address] Clerk Checker: Britni Mishra MD Performed By: #### I SLET ####[facility] [id number] [place] [address] CNCOon 04-15-2022 CNCO Letter Text Normal [facility] Basic metabolic 2000 panelon 10-29-2021 Anion gap [Moles/Vol] 11 mmol/L Normal 9-18 [facility] Comment on above: Order Comment: Speci men Type: BLOOD SPECIMEN Ordering Facility: [facility] Address: [address] [place] [address] Performed By: #### 2 4321-2 #### [facility] CLIA [id number] [address] [place] [address] [place] Calcium [Mass/Vol] 8.8 mg/dL Normal 8.5-10.2 [facility] Comment on above: Order Comment: Speci men Type: BLOOD SPECIMEN Ordering Facility: [facility] Address: [address] [place] [address] Performed By: #### 2 4321-2 #### [facility] CLIA [id number] [address] [place] [address] [place] Chloride [Moles/Vol] 104 mmol/L Normal 97-105 [facility] Comment on above: Order Comment: Speci men Type: BLOOD SPECIMEN Ordering Facility: [facility] Address: [address] [place] [address] Performed By: #### 2 4321-2 #### [facility] CLIA [id number] [address] [place] [address] [place] CO2 [Moles/Vol] 25 mmol/L Normal 22-30 [facility] Comment on above: Order Comment: Speci men Type: BLOOD SPECIMEN Ordering Facility: [facility] Address: [address] [place] [address] Performed By: #### 2 4321-2 #### [facility] CLIA [id number] [address] [place] [address] [place] Creatinine [Mass/Vol] 0.72 mg/dL Low 0.73-1.22 [facility] Comment on above: Order Comment: Speci men Type: BLOOD SPECIMEN Ordering Facility: [facility] Address: [address] [place] [address] Performed By: #### 2 4321-2 #### [facility] CLIA [id number] [address] [place] [address] [place] ESTIMATED GLOMERULAR FILTRATION RATE 89 mL/min/1.73m??? Normal >=60 [facility] Comment on above: Order Comment: Max white Type: BLOOD SPECIMEN Ordering Facility: [facility] Address: [address] [place], [place] [id number] Result Comment: Morena mated Glomerular Filtration Rate (eGFR) is calculated using the 2020 CKD-EPI creatinine equation. This equation utilizes serum creatinine, sex, and age as parameters. The creatinine assay has traceable calibration to isotope dilution-mass spectrometry. Refer to KDIGO guidelines for clinical interpretation. In patients with unstable renal function, e.g. those with acute kidney injury, the eGFR may not accurately reflect actual GFR. Performed By: #### 2 4321-2 #### [facility] CLIA [id number] [address] [place] [address] [place] Glucose [Mass/Vol] 168 mg/dL High 74-99 [facility] Comment on above: Order Comment: Max white Type: BLOOD SPECIMEN Ordering Facility: [facility] Address: [address] [place] [address] Result Comment: The [place] Diabetes Association (ADA) provides guidance for cutoff values for fasting glucose and random glucose. The ADA defines fasting as no caloric intake for at least 8 hours. Fasting plasma glucose results between 100 to 125 mg/dL indicate increased risk for diabetes (prediabetes). Fasting plasma glucose results greater than or equal to 126 mg/dL meet the criteria for diagnosis of diabetes. In the absence of unequivocal hyperglycemia, results should be confirmed by repeat testing. In a patient with classic symptoms of hyperglycemia or hyperglycemic crisis, random plasma glucose results greater than or equal to 200 mg/dL meet the criteria for diagnosis of diabetes. Reference: Standards of Medical Care in Diabetes 2016, [place] Diabetes Association. Diabetes Care. 2016.39(Suppl 1). Performed By: #### 2 4321-2 #### [facility] CLIA [id number] [address] [place] [address] [place] Potassium [Moles/Vol] 4.3 mmol/L Normal 3.7-5.1 [facility] Comment on above: Order Comment: Max white Type: BLOOD SPECIMEN Ordering Facility: [facility] Address: [address] [address] Performed By: #### 2 4321-2 #### [facility] CLIA [id number] [address] Sodium [Moles/Vol] 140 mmol/L Normal 136-144 [facility] Comment on above: Order Comment: Max white Type: BLOOD SPECIMEN Ordering Facility: [facility] Address: [address] [address] Performed By: #### 2 4321-2 #### [facility] CLIA [id number] [address] Urea nitrogen [Mass/Vol] 10 mg/dL Normal 9-24 [facility] Comment on above: Order Comment: [facility] Type: BLOOD SPECIMEN Ordering Facility: [facility] Address: [address] [address] Performed By: #### 2 4321-2 #### [facility] CLIA [id number] [address] CNDSon 10-29-2021 CNDS HNO ID: [id number] Author: Misael Crabtree PA-C Service: Hospital Medicine Author Type: Physician Sammying Machine Operator Type: Discharge Summary Filed: 10/29/2021 3:40 PM Note Text: -- Attestation signed by Juni Knapp MD at 10/30/2021 1:22 PM Discussed with provider below and I agree with their discharge documentation. Juni Knapp MD -- DISCHARGE SUMMARY PATIENT NAME: Lino Wheeler ADMISSION DATE: 10/25/2021 DISCHARGE DATE: 10/29/2021 ATTENDING PHYSICIAN: Juni Knapp MD Code Status: Not on file PCP: Juni Aguilar MD Highest Readmission Risk Score: 23 The 30 day readmissions risk score is derived from an internally validated risk model which evaluates patient level characteristics, utilization history, medication orders and lab results up until the day of discharge. Patients with a score of 40 or above are considered highest risk for readmission. Specific patient level drivers will be listed at the bottom of the summary. TRANSITIONS OF CARE CRITICAL ISSUES: RAZA MEDICATION CHANGES: Discharge Diabetes Regimen: 1. Check and Document Blood Sugars before breakfast, lunch, and dinner 2. Lantus 21 units subQ in the morning before breakfast 3. Humalog 6 units subQ before dinner 4. Document all readings and bring with you to your outpatient follow-up appointment LAB MONITORING NEEDED: Not applicable IMAGING FOLLOW-UP: Not applicable LABS AND PROCEDURES PENDING AT DISCHARGE: Test Results Not Yet Available from This Hospitalization: Please Review at Your Follow Up Appointment Order Current Status BLOOD CULTURE Preliminary result BLOOD CULTURE Preliminary result FOLLOW UP: The appointment NEEDS TO BE scheduled. Endocrinology REASON FOR HOSPITALIZATION: Weakness PRINCIPAL DIAGNOSIS: Diabetic Ketoacidosis SECONDARY DIAGNOSIS: Active Problems: DKA (diabetic ketoacidosis) (HCC) POA: Yes Epilepsy (HCC) POA: Yes Chronic back pain POA: Yes Gout POA: Yes HTN (hypertension) POA: Yes Hyperlipidemia POA: Yes Prostate cancer (HCC) POA: Yes Resolved Problems: * No resolved hospital problems. * HOSPITAL COURSE: Lino Wheeler is a 86 year old male presented with past medical history of eplilepsy, gout, HTN, and prostate cancer presented to the hospital with generalized weakness. Patient was admitted for DKA to the ICU. In the ED: initial blood glucose 622, corrected sodium 134, anion gap 18, Venous pH 7.33, bicarbonate 22, urine ketones +ve, serum ketones >4.50. He received 1 L IVF bolus and an insulin infusion was started. After treatment with IV insulin, the anion gapped closed and patient transitioned to subQ insulin. Patient was seen by Endocrinology (Dr. Womack). Patient had up titration of basal and prandial insulin. He was seen by PT/OT who recommended Home with Home Health. Endocrinology and Diabetic Educators met with patient and his for education. Endocrinology recommended Lantus 21 units daily in AM and Humalog 6 units at dinner. He will need continued adjustment and will need to closely monitor blood glucose at home. OPERATIONS/PROCEDURE DURING THIS HOSPITALIZATION: None CONSULTS DURING HOSPITALIZATION: Treatment Team: Attending Provider: Juni Knapp MD Consulting: Fredis Solomon MD Primary Service: [facility] 5 Physician Sammying Machine Operator: Misael Crabtree PA-C Orders Placed This Encounter CONSULT TO ENDOCRINOLOGY Physician Consult PATIENT CONDITION AT DISCHARGE: Stable ADVANCE CARE PLANNING DISCUSSION (if applicable): N/A DISCHARGE DISPOSITION: Home with Home Health Discharge Physical Exam: VITAL SIGNS: BP 95/58 Pulse 72 Temp 36.4 ?C (97.5 ?F) (Oral) Resp 18 Ht 175.3 cm (5' 9) Wt 81.9 kg (180 lb 8.9 oz) SpO2 98% BMI 26.66 kg/m? General: NAD, resting comfortably in bed, polite and cooperative HEENT: Normocephalic, atraumatic, Pupils are equal, round, and reactive to light, EOMI, Mucus membranes moist, tongue is pink and midline Neck: Supple, trachea midline Lungs: CTA bilaterally without wheezes, rales, rhonchi. Unlabored respiratory effort Heart: Regular rate and rhythm without ectopy Abdomen: Soft, nontender, bowel sounds present in all ashby, no HSM, no rebound or guarding. Musculoskeletal: Normal muscle bulk and tone. Appears to have full ROM of the UE/LE without deficit. Vascular: Cap refill brisk less than 2 sec. No cyanosis or edema. Neuro: CN II-XII intact. Answers all questions appropriately. Skin: No rashes, lesions, or cellulitis WOUND/SURGICAL SITE CARE: None SUPPLIES OR EQUIPMENT: None DIET: Resume pre-hospital diet ACTIVITY AND EXERCISE: Resume pre-hospital activity ADDITIONAL INFORMATION: FOLLOW UP APPOINTMENTS: No future appointments. ALLERGIES Allergen Reactions - Dilaudid [Hydromorp* Ment (more content not included)... Normal [facility] Basic metabolic 2000 panelon 10-28-2021 Anion gap [Moles/Vol] 7 mmol/L Low 9-18 [facility] Comment on above: Order Comment: Speci men Type: BLOOD SPECIMEN Ordering Facility: [facility] Address: [address] [address] Performed By: #### 2 4321-2 #### [facility] CLIA [id number] [address] [place] Calcium [Mass/Vol] 8.9 mg/dL Normal 8.5-10.2 [facility] Comment on above: Order Comment: Speci men Type: BLOOD SPECIMEN Ordering Facility: [facility] Address: [address] [place] [address] Performed By: #### 2 4321-2 #### [facility] CLIA [id number] 1000 [place] [address] [place] Chloride [Moles/Vol] 103 mmol/L Normal 97-105 [facility] Comment on above: Order Comment: Speci men Type: BLOOD SPECIMEN Ordering Facility: [facility] Address: [address] [place] [address] Performed By: #### 2 4321-2 #### [facility] CLIA [id number] [address] [place] CO2 [Moles/Vol] 28 mmol/L Normal 22-30 [facility] Comment on above: Order Comment: Speci men Type: BLOOD SPECIMEN Ordering Facility: [facility] Address: [address] [place] [address] Performed By: #### 2 4321-2 #### [facility] CLIA [id number] [address] [place] Creatinine [Mass/Vol] 0.67 mg/dL Low 0.73-1.22 [facility] Comment on above: Order Comment: Speci men Type: BLOOD SPECIMEN Ordering Facility: [facility] Address: [address] [address] Performed By: #### 2 4321-2 #### [facility] CLIA [id number] [address] ESTIMATED GLOMERULAR FILTRATION RATE 91 mL/min/1.73m??? Normal >=60 [facility] Comment on above: Order Comment: Speci men Type: BLOOD SPECIMEN Ordering Facility: [facility] Address: [address] [place] [phone] Result Comment: Morena mated Glomerular Filtration Rate (eGFR) is calculated using the 2020 CKD-EPI creatinine equation. This equation utilizes serum creatinine, sex, and age as parameters. The creatinine assay has traceable calibration to isotope dilution-mass spectrometry. Refer to KDIGO guidelines for clinical interpretation. In patients with unstable renal function, e.g. those with acute kidney injury, the eGFR may not accurately reflect actual GFR. Performed By: #### 2 4321-2 #### [facility] CLIA [id number] [address] [place] [address] [place] Glucose [Mass/Vol] 213 mg/dL High 74-99 [facility] Comment on above: Order Comment: Max white Type: BLOOD SPECIMEN Ordering Facility: [facility] Address: [address] [phone] Result Comment: The [place] [employer] (ADA) provides guidance for cutoff values for fasting glucose and random glucose. The ADA defines fasting as no caloric intake for at least 8 hours. Fasting plasma glucose results between 100 to 125 mg/dL indicate increased risk for diabetes (prediabetes). Fasting plasma glucose results greater than or equal to 126 mg/dL meet the criteria for diagnosis of diabetes. In the absence of unequivocal hyperglycemia, results should be confirmed by repeat testing. In a patient with classic symptoms of hyperglycemia or hyperglycemic crisis, random plasma glucose results greater than or equal to 200 mg/dL meet the criteria for diagnosis of diabetes. Reference: Standards of Medical Care in Diabetes 2016, [employer]. Diabetes Care. 2016.39(Suppl 1). Performed By: #### 2 4321-2 #### [facility] CLIA [id number] [address] [place] [address] [place] Potassium [Moles/Vol] 4.6 mmol/L Normal 3.7-5.1 [facility] Comment on above: Order Comment: Max white Type: BLOOD SPECIMEN Ordering Facility: [facility] Address: [address] [phone] Performed By: #### 2 4321-2 #### [facility] CLIA [id number] [address] [place] [address] [place] Sodium [Moles/Vol] 138 mmol/L Normal 136-144 [facility] Comment on above: Order Comment: Speci men Type: BLOOD SPECIMEN Ordering Facility: [facility] Address: [address] [phone] Performed By: #### 2 4321-2 #### [facility] CLIA [id number] [address] Urea nitrogen [Mass/Vol] 8 mg/dL Low 9-24 [facility] Comment on above: Order Comment: Speci men Type: BLOOD SPECIMEN Ordering Facility: [facility] Address: [address] [place] [address] Performed By: #### 2 4321-2 #### [facility] CLIA [id number] [address] CONSULT PROGon 10-28-2021 CONSULT PROG HNO ID: [id number] Author: Sandy Zaman MD Service: Endocrinology Author Type: Physician Type: Consult Progress Note Filed: 10/28/2021 10:13 AM Note Text: ENDOCRINOLOGY PROGRESS NOTE PATIENT NAME: Lino Wheeler SERVICE DATE: 10/28/21 SUBJECTIVE Interval History: Patient finished his breakfast this morning. Does not want to go to Acute Rehab CURRENT MEDICATION: Current Facility-Administered Medications Medication Dose Route Frequency - sodium chloride 0.9 % (flush) 3-5 mL (BD POSIFLUSH) 3-5 mL INTRAVENOUS q 12 H - NaCl 0.9% iv flush bag 20 mL INTRAVENOUS PRN - levETIRAcetam 500 mg tab(s) (KEPPRA) 500 mg ORAL BID - rosuvastatin 10 mg tab(s) (CRESTOR) 10 mg ORAL DAILY - tamsulosin 0.4 mg cap(s) (FLOMAX) 0.4 mg ORAL DAILY - atenolol 50 mg tab(s) (TENORMIN) 50 mg ORAL DAILY - allopurinol 300 mg tab(s) (ZYLOPRIM) 300 mg ORAL DAILY - oxyCODONE 10 mg - acetaminophen 325 mg tablet (PERCOCET) 1 tablet ORAL q 6 H PRN - heparin 5,000 Units injection 5,000 Units SUBCUTANEOUS q 12 H - insulin lispro injection (rapid acting) (HumaLOG) SUBCUTANEOUS w MEALS - insulin lispro injection (rapid acting) (HumaLOG) SUBCUTANEOUS AT BEDTIME - dextrose 40 % 15 g 15 g ORAL PRN Or - glucagon 1 mg injection 1 mg INTRAMUSCULAR PRN Or - dextrose 50% in water 25 mL syringe 12.5 g INTRAVENOUS PRN - mupirocin 2 % 0.5 g nasal ointment (BACTROBAN) 0.5 g NASAL BID - insulin glargine 20 Units pen (long acting) (LANTUS SOLOSTAR, BASAGLAR KWIKPEN) 20 Units SUBCUTANEOUS DAILY (8 AM) - insulin lispro 8 Units injection (rapid acting) (HumaLOG) 8 Units SUBCUTANEOUS w MEALS - super butt paste TOPICAL PRN CURRENT ALLERGIES: ALLERGIES Allergen Reactions - Dilaudid [Hydromorp* Mental Status Change - Penicillin Unknown - Toradol [Ketorolac] Itching ROS: GENERAL:No weight loss, malaise or fevers RESPIRATORY: Negative for cough, hemoptysis, wheezing or shortness of breath CARDIOVASCULAR: Negative for chest pain, leg swelling or palpitations GASTROINTESTINAL: No nausea, vomiting, or diarrhea SKIN:Negative for lesions, rash, and itching OBJECTIVE PHYSICAL EXAM: BP 137/73 Pulse 79 Temp 37.1 ?C (98.8 ?F) (Oral) Resp 16 Ht 175.3 cm (5' 9) Wt 81.9 kg (180 lb 8.9 oz) SpO2 96% BMI 26.66 kg/m? General: Well appearing, alert, in no acute distress, well-hydrated, well nourished Skin: skin color, texture, turgor normal, no rashes or lesions. Neck: Supple, no adenopathy; thyroid symmetric, normal size, no bruits Heart: RRR Abdomen: soft, non-tender, nondistended DATA: Diagnostic tests reviewed for today's visit: Component Latest Ref Rng AND Units 10/27/2021 10/27/2021 10/27/2021 10/27/2021 10/27/2021 10/27/2021 10/28/2021 7:53 AM 7:58 AM 11:47 AM 1:09 PM 5:50 PM 8:17 PM Glucose 74 - 99 mg/dL 324 (H) 145 (H) 213 (H) BUN 9 - 24 mg/dL 10 9 8 (L) Creatinine 0.73 - 1.22 mg/dL 0.68 (L) 0.59 (L) 0.67 (L) Sodium 136 - 144 mmol/L 135 (L) 139 138 Potassium 3.7 - 5.1 mmol/L 5.6 (H) 3.9 4.6 Chloride 97 - 105 mmol/L 101 105 103 CO2 22 - 30 mmol/L 26 24 28 Anion Gap 9 - 18 mmol/L 8 (L) 10 7 (L) Calcium 8.5 - 10.2 mg/dL 9.0 8.7 8.9 eGFR >=60 mL/min/1.73m? 91 94 91 Glucose, Point of Care 74 - 99 mg/dL 287 (A) 204 (A) 102 (A) 289 (A) 202 (A) ASSESSMENT AND PLAN Type 2 DM with hyperglycemia Continue Lantus to 20 units in the morning Continue Humalog 20 units AC TID Continue Humalog ISS #2 AC and #1 HS Will observe prelunch BSG and assess if adjustment needed Sandy Zaman MD Normal [facility] Basic metabolic 2000 panelon 10-27-2021 Anion gap [Moles/Vol] 10 mmol/L Normal 9-18 [facility] Comment on above: Order Comment: Speci men Type: BLOOD SPECIMEN Ordering Facility: [facility] Address: [address] [place] [address] Performed By: #### 2 4321-2 #### [facility] CLIA [id number] [address] [place] [address] [place] Calcium [Mass/Vol] 8.7 mg/dL Normal 8.5-10.2 [facility] Comment on above: Order Comment: Speci men Type: BLOOD SPECIMEN Ordering Facility: [facility] Address: [address] [address] Performed By: #### 2 4321-2 #### [facility] CLIA [id number] [address] [place] [address] [place] Chloride [Moles/Vol] 105 mmol/L Normal 97-105 [facility] Comment on above: Order Comment: Speci men Type: BLOOD SPECIMEN Ordering Facility: [facility] Address: [address] [address] Performed By: #### 2 4321-2 #### [facility] CLIA [id number] [address] [place] [address] [place] CO2 [Moles/Vol] 24 mmol/L Normal 22-30 [facility] Comment on above: Order Comment: Max white Type: BLOOD SPECIMEN Ordering Facility: [facility] Address: [address] [place] [address] Performed By: #### 2 4321-2 #### [facility] CLIA [id number] [address] [place] [address] [place] [facility] Creatinine [Mass/Vol] 0.59 mg/dL Low 0.73-1.22 [facility] Comment on above: Order Comment: Max white Type: BLOOD SPECIMEN Ordering Facility: [facility] Address: [address] [place] [address] Performed By: #### 2 4321-2 #### [facility] CLIA [id number] [address] ESTIMATED GLOMERULAR FILTRATION RATE 94 mL/min/1.73m??? Normal >=60 [facility] Comment on above: Order Comment: Max white Type: BLOOD SPECIMEN Ordering Facility: [facility] Address: [address] [place] [address] Result Comment: Morena mated Glomerular Filtration Rate (eGFR) is calculated using the 2020 CKD-EPI creatinine equation. This equation utilizes serum creatinine, sex, and age as parameters. The creatinine assay has traceable calibration to isotope dilution-mass spectrometry. Refer to KDIGO guidelines for clinical interpretation. In patients with unstable renal function, e.g. those with acute kidney injury, the eGFR may not accurately reflect actual GFR. Performed By: #### 2 4321-2 #### [facility] CLIA [id number] [address] [place] Glucose [Mass/Vol] 145 mg/dL High 74-99 [facility] Comment on above: Order Comment: Max white Type: BLOOD SPECIMEN Ordering Facility: [facility] Address: [address] [place] [address] Result Comment: The [place] [employer] (ADA) provides guidance for cutoff values for fasting glucose and random glucose. The ADA defines fasting as no caloric intake for at least 8 hours. Fasting plasma glucose results between 100 to 125 mg/dL indicate increased risk for diabetes (prediabetes). Fasting plasma glucose results greater than or equal to 126 mg/dL meet the criteria for diagnosis of diabetes. In the absence of unequivocal hyperglycemia, results should be confirmed by repeat testing. In a patient with classic symptoms of hyperglycemia or hyperglycemic crisis, random plasma glucose results greater than or equal to 200 mg/dL meet the criteria for diagnosis of diabetes. Reference: Standards of Medical Care in Diabetes 2016, [employer]. Diabetes Care. 2016.39(Suppl 1). Performed By: #### 2 4321-2 #### [facility] CLIA [id number] [address] [place] [address] [place] Potassium [Moles/Vol] 3.9 mmol/L Normal 3.7-5.1 [facility] Comment on above: Order Comment: Max white Type: BLOOD SPECIMEN Ordering Facility: [facility] Address: [address] [place] [address] Performed By: #### 2 4321-2 #### [facility] CLIA [id number] [address] [place] [address] [place] Sodium [Moles/Vol] 139 mmol/L Normal 136-144 [facility] Comment on above: Order Comment: Max white Type: BLOOD SPECIMEN Ordering Facility: [facility] Address: [address] [address] Performed By: #### 2 4321-2 #### [facility] CLIA [id number] [address] [place] [address] [place] Urea nitrogen [Mass/Vol] 9 mg/dL Normal 9-24 [facility] Comment on above: Order Comment: Max white Type: BLOOD SPECIMEN Ordering Facility: [facility] Address: [address] [address] Performed By: #### 2 4321-2 #### [facility] CLIA [id number] [address] [place] [address] [place] Anion gap [Moles/Vol] 8 mmol/L Low 9-18 [facility] Comment on above: Order Comment: Max white Type: BLOOD SPECIMENOrdering Facility: [facility] Address: [address] Performed By: #### 1 9123-9, 53659-9, 2776- ####[facility] [id number] [place] [address] [place] Calcium [Mass/Vol] 9.0 mg/dL Normal 8.5-10.2 [facility] Comment on above: Order Comment: Speci men Type: BLOOD SPECIMENOrdering Facility: [facility] Address: [facility] [address] [address] Performed By: #### 1 9123-9, 12451-9, 2776-07 ####[facility] [id number] [place] [address] [place] Chloride [Moles/Vol] 101 mmol/L Normal 97-105 [facility] Comment on above: Order Comment: Speci men Type: BLOOD SPECIMENOrdering Facility: [facility] Address: [facility] [address] [address] Performed By: #### 1 9123-9, 31319-0, 2776-07 ####[facility] [id number] [place] [address] [place] CO2 [Moles/Vol] 26 mmol/L Normal 22-30 [facility] Comment on above: Order Comment: Speci men Type: BLOOD SPECIMENOrdering Facility: [facility] Address: [address] [address] Performed By: #### 1 9123-9, 94612-1, 2776-07 ####[facility] [id number] [place] [address] [place] Creatinine [Mass/Vol] 0.68 mg/dL Low 0.73-1.22 [facility] Comment on above: Order Comment: Speci men Type: BLOOD SPECIMENOrdering Facility: [facility] Address: [address] Performed By: #### 1 9123-9, 01615-6, 2776- ####[facility] [id number] [place] [address] [place] ESTIMATED GLOMERULAR FILTRATION RATE 91 mL/min/1.73m??? Normal >=60 [facility] Comment on above: Order Comment: Max white Type: BLOOD SPECIMENOrdering Facility: [facility] Address: [address] [place] [address] Result Comment: Morena mated Glomerular Filtration Rate (eGFR) is calculated using the 2020 CKD-EPI creatinine equation. This equation utilizes serum creatinine, sex, and age as parameters. The creatinine assay has traceable calibration to isotope dilution-mass spectrometry. Refer to KDIGO guidelines for clinical interpretation. In patients with unstable renal function, e.g. those with acute kidney injury, the eGFR may not accurately reflect actual GFR. Performed By: #### 1 9123-9, 47641-7, 277- ####[facility] [id number] [place] [address] [place] Glucose [Mass/Vol] 324 mg/dL High 74-99 [facility] Comment on above: Order Comment: Max white Type: BLOOD SPECIMENOrdering Facility: [facility] Address: [address] [place] [address] Result Comment: The [place] Diabetes Association (ADA) provides guidance for cutoff values for fasting glucose and random glucose. The ADA defines fasting as no caloric intake for at least 8 hours. Fasting plasma glucose results between 100 to 125 mg/dL indicate increased risk for diabetes (prediabetes). Fasting plasma glucose results greater than or equal to 126 mg/dL meet the criteria for diagnosis of diabetes. In the absence of unequivocal hyperglycemia, results should be confirmed by repeat testing. In a patient with classic symptoms of hyperglycemia or hyperglycemic crisis, random plasma glucose results greater than or equal to 200 mg/dL meet the criteria for diagnosis of diabetes. Reference: Standards of Medical Care in Diabetes 2016, [place] [employer]. Diabetes Care. 2016.39(Suppl 1). Performed By: #### 1 9123-9, 42728-7, 2776-07 ####[facility] [id number] [place] [address] [place] Potassium [Moles/Vol] 5.6 mmol/L High 3.7-5.1 [facility] Comment on above: Order Comment: Speci men Type: BLOOD SPECIMENOrdering Facility: [facility] Address: [address] [place] [address] Performed By: #### 1 9123-9, 12252-9, 2776- ####[facility] [id number] [address] Sodium [Moles/Vol] 135 mmol/L Low 136-144 [facility] Comment on above: Order Comment: Speci men Type: BLOOD SPECIMENOrdering Facility: [facility] Address: [address] [place] [address] Performed By: #### 1 9123-9, 82379-5, 2776- ####[facility] [id number] [address] Urea nitrogen [Mass/Vol] 10 mg/dL Normal 9-24 [facility] Comment on above: Order Comment: Speci men Type: BLOOD SPECIMENOrdering Facility: [facility] Address: [address] [place] [address] Performed By: #### 1 9123-9, 06825-3, 2776-07 ####[facility] [id number] [address] CBC panel Auto (Bld)on 10-27 Erythrocyte distribution width (RBC) [Ratio] 13.2 % Normal 11.5-15.0 [facility] Comment on above: Order Comment: Speci men Type: BLOOD SPECIMENOrdering Facility: [facility] Address: [address] [place] [address] Performed By: #### 5 8410-2 ####[facility] [id number] [address] Hematocrit (Bld) [Volume fraction] 36.6 % Low 39.0-51.0 [facility] Comment on above: Order Comment: Speci men Type: BLOOD SPECIMENOrdering Facility: [facility] Address: [address] [place] [address] Performed By: #### 5 8410-2 ####[facility] [id number] [address] Hemoglobin (Bld) [Mass/Vol] 12.2 g/dL Low 13.0-17.0 [facility] Comment on above: Order Comment: Speci men Type: BLOOD SPECIMENOrdering Facility: [facility] Address: [address] [place] [address] Performed By: #### 5 8410-2 ####[facility] [id number] [address] MCH (RBC) [Entitic mass] 31.3 pg Normal 26.0-34.0 [facility] Comment on above: Order Comment: Speci men Type: BLOOD SPECIMENOrdering Facility: [facility] Address: [address] [place] [address] Performed By: #### 5 8410-2 ####[facility] [id number] [address] MCHC (RBC) [Mass/Vol] 33.3 g/dL Normal 30.5-36.0 [facility] Comment on above: Order Comment: Speci men Type: BLOOD SPECIMENOrdering Facility: [facility] Address: [address] [place] [address] Performed By: #### 5 8410-2 ####[facility] [id number] [address] MCV (RBC) [Entitic vol] 93.8 fL Normal 80.0-100.0 [facility] Comment on above: Order Comment: Speci men Type: BLOOD SPECIMENOrdering Facility: [facility] Address: [address] [place] [address] Performed By: #### 5 8410-2 ####[facility] [id number] [address] Nucleated RBC (Bld) [#/Vol] 10*3/uL Normal <0.01 [facility] Comment on above: Order Comment: Speci men Type: BLOOD SPECIMENOrdering Facility: [facility] Address: [address] [place] [address] Performed By: #### 5 8410-2 ####[facility] [id number] [address] [place] Platelet mean volume (Bld) [Entitic vol] 10.0 fL Normal 9.0-12.7 [facility] Comment on above: Order Comment: Speci men Type: BLOOD SPECIMENOrdering Facility: [facility] Address: [address] [place] [address] Performed By: #### 5 8410-2 ####[facility] [id number] [place] [address] [place] Platelets (Bld) [#/Vol] 188 10*3/uL Normal 150-400 [facility] Comment on above: Order Comment: Speci men Type: BLOOD SPECIMENOrdering Facility: [facility] Address: [address] [place] [address] Performed By: #### 5 8410-2 ####[facility] [id number] [place] [address] [place] RBC (Bld) [#/Vol] 3.90 10*6/uL Low 4.20-6.00 [facility] Comment on above: Order Comment: Speci men Type: BLOOD SPECIMENOrdering Facility: [facility] Address: [address] [place] [address] Performed By: #### 5 8410-2 ####[facility] [id number] [place] [address] [place] WBC (Bld) [#/Vol] 7.47 10*3/uL Normal 3.70-11.00 [facility] Comment on above: Order Comment: Speci men Type: BLOOD SPECIMENOrdering Facility: [facility] Address: [address] [place], [place] [address] Performed By: #### 5 8410-2 ####[facility] [id number] [address] CONSULT PROGon 10-27-2021 CONSULT PROG HNO ID: [id number] Author: Arabella Womack MD Service: Endocrinology Author Type: Physician Type: Consult Progress Note Filed: 10/27/2021 11:23 AM Note Text: DIABETES PROGRESS NOTE PATIENT NAME: Lino Wheeler SERVICE DATE: 10/27/2021 ASSESSMENT AND PLAN Mr. Wheeler is a 86 year old male with PMHx of Prediabetes, Epilepsy, Gout, HTN, HLP, and prostate cancer presented to the hospital with generalized weakness, admitted with DKA. Uncontrolled diabetes: SHAKIRA Ab is pending DKA resolved, he was transitioned to SQ insulin yesterday BG are above goal Increased lantus to 20 units q AM increased humalog to 8 units with meals, and continue humalog level # 1 correction scale with meals Monitor BG AC/HS Notify endocrinology if BG < 70 or > 250 diabetes education to see patient Given that his A1c is 11.3, he will need to continue basal and prandial insulin at the time of discharge Interval HPI No new complaints He wants to go home PAST MEDICAL HISTORY: PAST MEDICAL HISTORY Diagnosis Date - Chronic pain - Diabetes (HCC) - Epilepsy (HCC) sz approx 20 years ago - History of gout - Hypertension - Mixed hyperlipidemia - Prostate cancer (HCC) s/p seed therapy CURRENT MEDICATION: Current Facility-Administered Medications Medication Dose Route Frequency Provider Last Rate Last Admin - super butt paste TOPICAL PRN Manuel De Los Santos MD - sodium chloride 0.9 % (flush) 3-5 mL (BD POSIFLUSH) 3-5 mL INTRAVENOUS q 12 H Delia M Esterle, DO 5 mL at 10/27/21830 - NaCl 0.9% iv flush bag 20 mL INTRAVENOUS PRN Delia M Esterle, DO - levETIRAcetam 500 mg tab(s) (KEPPRA) 500 mg ORAL BID Delia M Esterle, DO 500 mg at 10/27/21828 - rosuvastatin 10 mg tab(s) (CRESTOR) 10 mg ORAL DAILY Delia M Esterle, DO 10 mg at 10/27/21828 - tamsulosin 0.4 mg cap(s) (FLOMAX) 0.4 mg ORAL DAILY Delia M Esterle, DO 0.4 mg at 10/27/21828 - atenolol 50 mg tab(s) (TENORMIN) 50 mg ORAL DAILY Delia M Esterle, DO 50 mg at 10/27/21 0829 - allopurinol 300 mg tab(s) (ZYLOPRIM) 300 mg ORAL DAILY Delia M Esterle, DO 300 mg at 10/27/21 0829 - oxyCODONE 10 mg - acetaminophen 325 mg tablet (PERCOCET) 1 tablet ORAL q 6 H PRN Delia M Esterle, DO 1 tablet at 10/27/21 0325 - heparin 5,000 Units injection 5,000 Units SUBCUTANEOUS q 12 H Delia M Esterle, DO 5,000 Units at 10/27/21 08 - insulin lispro injection (rapid acting) (HumaLOG) SUBCUTANEOUS w MEALS Delia M Esterle, DO 6 Units at 10/27/21 0834 - insulin lispro injection (rapid acting) (HumaLOG) SUBCUTANEOUS AT BEDTIME Delia M Esterle, DO 3 Units at 10/26/21 2151 - dextrose 40 % 15 g 15 g ORAL PRN Delia M Esterle, DO Or - glucagon 1 mg injection 1 mg INTRAMUSCULAR PRN Delia M Esterle, DO Or - dextrose 50% in water 25 mL syringe 12.5 g INTRAVENOUS PRN Delia M Esterle, DO - mupirocin 2 % 0.5 g nasal ointment (BACTROBAN) 0.5 g NASAL BID Delia M Esterle, DO 0.5 g at 10/27/21 08 - insulin glargine 20 Units pen (long acting) (LANTUS SOLOSTAR, BASAGLAR KWIKPEN) 20 Units SUBCUTANEOUS DAILY (8 AM) Arabella Womack MD 20 Units at 10/27/21 0827 - insulin lispro 8 Units injection (rapid acting) (HumaLOG) 8 Units SUBCUTANEOUS w MEALS Arabella Womack MD 8 Units at 10/27/21 0833 CURRENT ALLERGIES: Allergies As of Date: 10/25/2021 Allergen Noted Reaction DILAUDID [HYDROMORPHONE (BULK)] 03/08/2017 Mental Status Change PENICILLIN 01/14/2017 Unknown TORADOL [KETOROLAC] 01/14/2017 Itching Fully Assessed 10/25/2021 COMPLETE REVIEW OF SYSTEMS: General: no fever, chills or acute changes in weight in the last 6 months Skin: no rashes, pruritis or dry skin Cardiac: denies chest pain, heart palpitations or orthopnea Pulmonary: denies wheezing, productive cough or exertional dyspnea GI: denies nausea, vomiting, diarrhea or constipation Endocrine: denies polyuria, polydipsia, nocturia, blurry vision or excessive fatigue OBJECTIVE PHYSICAL EXAM: BP 158/82 Pulse 84 Temp 37.3 ?C (99.1 ?F) (Oral) Resp 19 Ht 175.3 cm (5' 9) Wt 82.3 kg (181 lb 7 oz) SpO2 96% BMI 26.79 kg/m2 General: Well appearing, alert, in no acute distress Eyes: anicteric sclera, EOMI Skin: skin color, texture, turgor normal, no rashes or lesions. Heart: RRR without murmur, gallop, or rubs. Pulmonary: non labored breathing. No wheezing DATA: Diagnostic tests reviewed for today: Recent Labs 10/27/21 0758 10/26/21 2000 10/26/21 1746 10/26/21 1301 10/26/21 1032 10/26/21 0900 10/26/21 0809 10/26/21 0656 10/26/21 0604 10/26/21 0508 10/26/21 0400 10/26/21 0303 10/26/21 0208 10/26/21 0108 10/25/21 2353 10/25/21 2137 PCGLUCOSE 287* 277* 162* 250* 200* 211* 198* 203* 186* 199* 226* 283* 374* 443* 530* >600* Glucose, Point of Care Date Value Ref Range Status 10/27/2021 287 (A) 74 - 99 mg/dL Final Comment: Location:[facility], [address] [place] [address], [facility] The Accu-Chek Inform II glucose meter has not been approved for testing on pat (more content not included)... Normal [facility] Magnesium SerPl-mCncon 10-27 Magnesium [Mass/Vol] 1.7 mg/dL Normal 1.7-2.3 [facility] Comment on above: Order Comment: Speci men Type: BLOOD SPECIMENOrdering Facility: [facility] Address: [address] [place] [phone] Performed By: #### 1 9123-9, 79295-2, 2777-1 ####[facility]ORYCLIA [id number] [place] [address] [facility] NUTRITIONon 10-27-2021 NUTRITION HNO ID: [id number] Author: Delia Hoff RD Service: Nutrition Therapy Author Type: Registered Dietitian Type: Nutrition Filed: 10/27/2021 12:11 PM Note Text: NUTRITION THERAPY SCREEN NOTE SERVICE DATE: 10/27/2021 SERVICE TIME: 10:15 AM Care Plan: Continue current diet Supplements: Boost Glucose Control Monitor and Evaluation: Meet greater than 75% of estimated needs Physician progress notes and labs reviewed. HPI: 86 year old male admitted initially to the ICU with DKA, now on RNF. Hx: Gout, HTN, hyperlipidemia, prostate cancer Intake History: Nutrition Intake Prior to Admission: Less than 75% estimated energy needs (3 days, pt reports he usually eats well and has a good appetite)Current Intake: Greater than 75% estimated energy needs Over: day (Pt reports he is feeling better and appetite is back. Pt reports 100% po intake of breakfast meal this morning, Flow sheet showing 25%) Pt pleasant and cooperative. Eager to go home, reports feeling better. Agreeable to Boost. Diet Orders (From admission, onward) Start Ordered 10/27/21 1215 DIET SUPPLEMENTS NOW Question Answer Comment Supplement 1 BOOST GLUCOSE CONTROL CHOCOLATE Supplement 1 Frequency LUNCH 10/27/21 1205 10/26/21 1900 DIET FOOD CONSISTENCY CONTROLLED START NOW Question: Food Consistency Answer: DENTAL SOFT 10/26/21 1851 Anthropometrics: Height: 175.3 cm (5' 9) Weight: 82.3 kg (181 lb 7 oz) Usual Weight: 79.4 kg (175 lb) 01/29/21, Per pt UBW 180-185 lbs Usual Weight Obtained From: (Pt and chart review) Weight change percentage over time: current weight within UBW reported, no significant weight change MNT Billing: $ Initial Assessment: 1-15 minutes SIGNATURE: Delia Hoff RD PATIENT NAME: Lino Wheeler DATE: October 27, 2021 TIME: 12:06 PM Normal [facility] Phosphate SerPl-mCncon 10-27 Phosphate [Mass/Vol] 2.7 mg/dL Normal 2.7-4.8 [facility] Comment on above: Order Comment: Speci men Type: BLOOD SPECIMENOrdering Facility: [facility] Address: [address] [place] [address] Performed By: #### 1 9123-9, 08069-9, 2777-1 ####[facility]ORYCLIA [id number] [place] [address] [facility] [place] THERAPY NTon 10-27-2021 THERAPY NT HNO ID: [id number] Author: Shanna Bryant, PT Service: Physical Therapy Author Type: Physical Therapist Type: Therapy (PT/OT/Speech/Resp) Filed: 10/27/2021 5:44 PM Note Text: Physical Therapy Evaluation SERVICE DATE: 10/27/2021 SERVICE TIME: 1545 to 1630 ROOM: [place] [address] Recommended Discharge Disposition: Home PT Recommended Discharge Disposition Comments: patient presents with general weakness, decreased tolerance with fatigue, decreased balance/increased fall risk and impaired functional mobility indicating need for skilled PT in acute setting and post acute stay Anticipated Discharge Needs: Physical Assist at Home;Supervision at Home Physical Assist at Home for: Cleaning;Laundry;Meals;Ritika pping;Transportation Supervision at Home due to: Other: See Comment (initially for optimal safety) Recommended Discharge Equipment: To Be Determined PT 6 Clicks Score: 20 Precautions/Activity Restrictions: Fall Risk;Bed/Chair Alarm;Diabetic Current Hospital Course: patient admitted with Dx: DKA Reason for Hospital Admission: patient presents 10/25/21 with weakness. Relevant Past Medical History: DM,HTN,epilepsy,chronic pain, HLD,gout,prostrate CA Response to Therapy Interventions: Good participation in activities, On-track to achieve discharge goals, Pain, Requires additional time to complete activities, Requires encouragement to complete activities Assessment Comments: patient demonstrates functional mobility including bed mobility, transfers and amb with FWW with SBA to CGA. cues for safety are well received and demonstrates good follow through Continue skilled needs due to: Functional mobility/skill impairments, Safety concerns Physical Therapy Problem List: Pain;Safety Deficits;Impaired Self Care;Decreased Activity Tolerance;Decreased Range Of Motion;Decreased Strength;Functional Mobility Impairment;Balance Impaired Treatment Interventions: Education;Self Care / Home Management;Energy Conservation Training;Joint Mobility;Strengthening;Fun ctional Mobility Training;Balance Training;Neuromuscular Re-education Plan for next visit: Bed mobility, Fall prevention, Gait training, Pre-gait activities, Sitting balance, Sit to Stand Transfers, Standing Balance, Standing Tolerance, Walker Training Home Environment Patient Lives With: Spouse Assistance Available: 24 Hour Entry To Home: Stairs;With Rail Number Of Stairs Into Home: 4 Number Of Stairs To Bed/Bath: 0 Tub/Shower Type: tub shower wtih bench Laundry: completes Equipment Owned: Rollator;Shower Chair Prior Functional Level: Required Assistance Assistance Required With: Transportation;Shopping;Se lf Care;Safety;Medication Management;Meals;Laundry;C leaning;Finances Prior Functional Level Comments: Pt reports staying in bed most of the day. Pt reports ambulating to bathroom and kitchen with FWW. Pt reports IND with toileting and UB dressing. assist wiht LB dressing and sponge bathing. Pt fearful of getting in/out of tub. completes all IADLS including med mgmt. Patient Report: patient agreeable to PT and cleared by RN. per RN, patient required heavy A x 2 OOB CURRENT FUNCTIONAL STATUS: Most recent performance Current Functional Mobility Assist Level Additional Information Rolling Supine to Sit Contact Guard Assistance;Additional Information HOB flat, min rail use, slow to EOB Sit to Supine Stand By Assistance;Additional Information HOB flat, no rail, slow to center of bed Scooting Contact Guard Assistance;Additional Information in sitting, fwd to EOB Sit to Stand Contact Guard Assistance;Additional Information from lowered EOB with FWW. cues for hand placement and improved rising. 2 trials Stand to Sit Contact Guard Assistance;Additional Information to lowered EOB with FWW. cues for safe approach of EOB with FWW, positioning to HOB, hand placement and controlled descent. 2 trials Bed to Chair Toilet/Commode Gait Contact Guard Assistance;Additional Information Gait Device: Wheeled Walker Gait Distance (feet): 50 x 2 reciprocal gait. cues for walker negotiation and sequencing, distancing and turning Stairs Curb Step Car Transfer Blank ashby indicate activity not attempted Gait Deviations Right Lower Extremity: Heel strike during initial stance decreased;Knee flexion during stance increased;Lacks hip extension beyond mid-stance;Push off during terminal stance decreased;Step length decreased Gait Deviations Left Lower Extremity: Heel strike during initial stance decreased;Knee flexion during stance increased;Lacks hip extension beyond mid-stance;Push off during terminal stance decreased;Step length decreased General Deviations/Observations: Tea decreased;Difficulty changing direction/turning;Flexed trunk posture;Narrow Base of Support;Step length decreased Balance: Static Sitting;Dynamic Sitting;Static Standing;Dynamic Standing Static Sitting Balance: Good Patient (more content not included)... Normal [facility] THERAPY NT HNO ID: [id number] Author: Indira Reyez OT/L Service: Occupational Therapy Author Type: Occupational Therapist Type: Therapy (PT/OT/Speech/Resp) Filed: 10/27/2021 2:46 PM Note Text: Occupational Therapy Evaluation SERVICE DATE: 10/27/2021 SERVICE TIME: 1336 to 1414 ROOM: [place] [address] Recommended Discharge Disposition: Subacute/SNF Recommended Discharge Disposition Due to: Patient requires daily, facility-based rehabilitation from at least one discipline due to:;ADL impairment resulting in caregiver dependence;decline in functional status requiring daily skilled care Anticipated Discharge Needs: Physical Assist at Home;Supervision at Home Physical Assist at Home for: Transfers;Finances;Ambulat ion;Cleaning;Laundry;Meals ;Medication Management;Stairs;Safety;S elf Care;Shopping;Transportati on Supervision at Home due to: Impaired cognition;Decreased safety awareness OT 6 Clicks Score: 16 Pt appears to be functioning below baseline. reports decline over past few months, pt needing increased assist with ADLs- with recent fall and shoulder surgery-difficult to assist pt. Pt would benefit from SNF to maximize IND with ADLs and mobility to prevent further decline. Precautions/Activity Restrictions: Fall Risk;Bed/Chair Alarm;Diabetic Current Hospital Course: presented to the hospital with generalized weakness, admitted with DKA. Reason for Hospital Admission: generalized weakness Relevant Past Medical History: PMHx significant for type 2 diabetes- reportedly placed on metformin for 2 years but discontinued ?many years ago? due to intolerance, Epilepsy, Gout, chronic back pain, HTN, HLP, and prostate cancer.He reports that his PCP told him he did not have diabetes thus he does not check his blood glucose. PAST MEDICAL HISTORY Diagnosis Date - Chronic pain - Diabetes (HCC) - Epilepsy (HCC) sz approx 20 years ago - History of gout - Hypertension - Mixed hyperlipidemia - Prostate cancer (HCC) s/p seed therapy PAST SURGICAL HISTORY Procedure Laterality Date - BACK SURGERY HX 4 back surgeries - PAST SURGICAL HISTORY OF testicular surgery Response to Therapy Interventions: Low activity tolerance, Good participation in activities Continue skilled needs due to: Cognitive deficits, Coping deficits, Continued monitoring of vital signs during mobility required, Family training required, Functional impairment, Safety concerns Occupational Therapy Problem List: Cognitive Deficit;Safety Deficits;Decreased Strength;Impaired Self Care;Decreased Activity Tolerance;Functional Mobility Impairment;Balance Impaired;Impaired Fine Motor Skills Cognition/Communication Deficits Communication Deficits: Dysarthric (2/2 no teeth) Orientation Deficits: Not oriented to Person, Not oriented to Place, Not oriented to Time (Aox2-3 year not month or date) Responsiveness: Lethargic Follows Commands: 2-step Commands, Cueing Needed Cueing to Follow Commands: Moderate Attention Deficits: Distractible Executive Function Deficits: Safety Awareness, Insight to Deficits, Problem Solving, Sequencing Sequencing Deficit: Moderate impairment Insight to Deficits: Moderate impairment Problem Solving Deficit: Moderate impairment Safety Awareness Deficit: Moderate impairment Cognitive Clinical Tests and Screens: 4AT Screening Psychosocial Deficit: pt reports staying in bed majority of day Cognitive Activities Performed: 2 step command following, sequecing, sustained attention for ADL task 4AT Screening Assess alertness (ask patient to state their name and address): Normal (fully alert, but not agitated, throughout assessment) Ask patient: age, date of , current year, and current location: No mistakes Ask patient to tell me the months of the year backwards order, starting with June: Untestable (cannot start due to unwell, drowsy, or inattentive) Acute change or fluctuating mental status: No 4AT Score: 2 Delirium Positive/Negative: Negative Treatment Interventions: Education;Self Care / Home Management;Energy Conservation Training;Strengthening;Fun ctional Mobility Training;Balance Training;Pain Management;Cognitive Training Plan for next visit: Bed mobility, Standing tolerance, Standing balance, Toileting instruction, Dressing training, Chair/commode transfer training Home Environment Patient Lives With: Spouse Assistance Available: 24 Hour Entry To Home: Stairs;With Rail Number Of Stairs Into Home: 4 Number Of Stairs To Bed/Bath: 0 Tub/Shower Type: tub shower wtih bench Laundry: completes Equipment Owned: Rollator;Shower Chair Prior Functional Level: Required Assistance Assistance Required With: Transportation;Shopping;Se lf Care;Safety;Medication Management;Meals;Laundry;C leaning;Finances Prior Functional Level Comments: Pt reports staying in bed most of the day. Pt reports ambulating to bathroom and kitchen with FWW. Pt reports IN (more content not included)... [facility] ALLIED HEALTHon 10-26-2021 ALLIED HEALTH HNO ID: [id number] Author: RT Bing(R) Service: Radiology Author Type: Technologist Type: Allied Health Filed: 10/25/2021 10:21 PM Note Text: Radiology Service Progress Note PATIENT NAME: Lino Wheeler DATE OF SERVICE: October 25, 2021 TIME: 10:21 PM PATIENT IDENTITY VERIFICATION COMPLETED USING TWO (2) IDENTIFIERS: Name and Date of confirmed by patient verbally. FALL SCREENING: Has the patient had 2 falls in the last year or 1 fall with injury or currently using an Ambulatory Assistive Device (Walker, Cane, Wheelchair, Crutches, etc.)? Emergency Room Patient: Screened in ED PATIENT GENDER DATA: Male PATIENT RELEVANT IMPLANT DATA REVIEWED: Not Applicable RADIOLOGY DEPARTMENT: General X-ray: Exam(s) Completed: Chest X-Ray PERIPHERAL IV DATA: Not applicable SIGNED BY: RT Bing(R) October 25, 2021 10:21 PM [facility] Bacteria Bld Culton 10-27-19 22 Bacteria identified Cx Nom (Bld) CULTURE, BLOOD: No growth 5 days [facility] Comment on above: Performed By: #### 6 00-7 ####[facility] LAB[facility] [id number] [place] [address] [place] Bacteria identified Cx Nom (Bld) CULTURE, BLOOD: No growth 5 days [facility] Comment on above: Performed By: #### 6 00-7 ####[facility] LAB[facility] [id number] [place] [address] [place] Basic metabolic 2000 panelon 10-26-2021 Anion gap [Moles/Vol] 10 mmol/L Normal 9-18 [facility] Comment on above: Order Comment: Speci men Type: BLOOD SPECIMENOrdering Facility: [facility] Address: [address] [place] [address] [place] [address] Performed By: #### 2 4321-2 ####[facility]ATORYCLIA [id number] [place] [address] [place] Calcium [Mass/Vol] 8.8 mg/dL Normal 8.5-10.2 [facility] Comment on above: Order Comment: Speci men Type: BLOOD SPECIMENOrdering Facility: [facility] Address: [address] [place] [address] Performed By: #### 2 4321-2 ####[facility]ORATORYCLIA [id number] [place] [address] [place] Chloride [Moles/Vol] 102 mmol/L Normal 97-105 [facility] Comment on above: Order Comment: Speci men Type: BLOOD SPECIMENOrdering Facility: [facility] Address: [address] [place] [address] Performed By: #### 2 4321-2 ####[facility]ORATORYCLIA [id number] [place] [address] [place] CO2 [Moles/Vol] 26 mmol/L Normal 22-30 [facility] Comment on above: Order Comment: Speci men Type: BLOOD SPECIMENOrdering Facility: [facility] Address: [address] [place] [address] Performed By: #### 2 4321-2 ####[facility]ATORYCLIA [id number] [place] [address] [place] Creatinine [Mass/Vol] 0.71 mg/dL Low 0.73-1.22 [facility] Comment on above: Order Comment: Speci men Type: BLOOD SPECIMENOrdering Facility: [facility] Address: [address] [place] [address] Performed By: #### 2 4321-2 ####[facility]ORYCLIA [id number] [address] [place] ESTIMATED GLOMERULAR FILTRATION RATE 89 mL/min/1.73m??? Normal >=60 [facility] Comment on above: Order Comment: Speci men Type: BLOOD SPECIMENOrdering Facility: [facility] Address: [address] [place] [address] Result Comment: Morena mated Glomerular Filtration Rate (eGFR) is calculated using the 2020 CKD-EPI creatinine equation. This equation utilizes serum creatinine, sex, and age as parameters. The creatinine assay has traceable calibration to isotope dilution-mass spectrometry. Refer to KDIGO guidelines for clinical interpretation. In patients with unstable renal function, e.g. those with acute kidney injury, the eGFR may not accurately reflect actual GFR. Performed By: #### 2 4321-2 ####[facility]ORYCLIA [id number] [place] [address] [place] Glucose [Mass/Vol] 217 mg/dL High 74-99 [facility] Comment on above: Order Comment: Specshirley white Type: BLOOD SPECIMENOrdering Facility: [facility] Address: [address] [place] [phone] Result Comment: The [place] [employer] (ADA) provides guidance for cutoff values for fasting glucose and random glucose. The ADA defines fasting as no caloric intake for at least 8 hours. Fasting plasma glucose results between 100 to 125 mg/dL indicate increased risk for diabetes (prediabetes). Fasting plasma glucose results greater than or equal to 126 mg/dL meet the criteria for diagnosis of diabetes. In the absence of unequivocal hyperglycemia, results should be confirmed by repeat testing. In a patient with classic symptoms of hyperglycemia or hyperglycemic crisis, random plasma glucose results greater than or equal to 200 mg/dL meet the criteria for diagnosis of diabetes. Reference: Standards of Medical Care in Diabetes 2016, [employer] Association. Diabetes Care. 2016.39(Suppl 1). Performed By: #### 2 4321-2 ####[facility]ATORYCLIA [id number] [place] [id number] [place] Potassium [Moles/Vol] 4.3 mmol/L Normal 3.7-5.1 [facility] Comment on above: Order Comment: Max white Type: BLOOD SPECIMENOrdering Facility: [facility] Address: [address] [place] [address] Performed By: #### 2 4321-2 ####[facility]ATORYCLIA [id number] [place] [address] [place] Sodium [Moles/Vol] 138 mmol/L Normal 136-144 [facility] Comment on above: Order Comment: Speci men Type: BLOOD SPECIMENOrdering Facility: [facility] Address: [address] [place] [address] Performed By: #### 2 4321-2 ####[facility]ORATORYCLIA [id number] [place] [address] [place] Urea nitrogen [Mass/Vol] 12 mg/dL Normal 9-24 [facility] Comment on above: Order Comment: Speci men Type: BLOOD SPECIMENOrdering Facility: [facility] Address: [address] [place] [address] Performed By: #### 2 4321-2 ####[facility]ATORYCLIA [id number] [place] [address] [place] Anion gap [Moles/Vol] 11 mmol/L Normal 9-18 [facility] Comment on above: Order Comment: Speci men Type: BLOOD SPECIMEN [facility] Address: [address] [place] [address] Performed By: #### 2 4321-2 #### [facility] CLIA [id number] [address] [place] [address] [place] Calcium [Mass/Vol] 8.8 mg/dL Normal 8.5-10.2 [facility] Comment on above: Order Comment: Speci men Type: BLOOD SPECIMEN [facility] Address: [address] [place] [address] Performed By: #### 2 4321-2 #### [facility] CLIA [id number] [address] [place] [address] [place] Chloride [Moles/Vol] 101 mmol/L Normal 97-105 [facility] Comment on above: Order Comment: Speci men Type: BLOOD SPECIMEN [facility] Address: [address] [place] [address] Performed By: #### 2 4321-2 #### [facility] CLIA [id number] [address] [place] [address] [place] CO2 [Moles/Vol] 25 mmol/L Normal 22-30 [facility] Comment on above: Order Comment: Speci men Type: BLOOD SPECIMEN [facility] Address: [address] [place] [address] Performed By: #### 2 4321-2 #### [facility] CLIA [id number] [address] [place] [facility] Creatinine [Mass/Vol] 0.70 mg/dL Low 0.73-1.22 [facility] Comment on above: Order Comment: Max white Type: BLOOD SPECIMEN [facility] Address: [address] [place] [address] Performed By: #### 2 4321-2 #### [facility] CLIA [id number] [address] [facility] ESTIMATED GLOMERULAR FILTRATION RATE 90 mL/min/1.73m??? Normal >=60 [facility] Comment on above: Order Comment: Max white Type: BLOOD SPECIMEN Ordering Facility: [facility] Address: [address] [place] [address] Result Comment: Morena mated Glomerular Filtration Rate (eGFR) is calculated using the 2020 CKD-EPI creatinine equation. This equation utilizes serum creatinine, sex, and age as parameters. The creatinine assay has traceable calibration to isotope dilution-mass spectrometry. Refer to KDIGO guidelines for clinical interpretation. In patients with unstable renal function, e.g. those with acute kidney injury, the eGFR may not accurately reflect actual GFR. Performed By: #### 2 4321-2 #### [facility] CLIA [id number] [address] Glucose [Mass/Vol] 225 mg/dL High 74-99 [facility] Comment on above: Order Comment: Max white Type: BLOOD SPECIMEN Ordering Facility: [facility] Address: [address] [place] [address] Result Comment: The [place] Diabetes Association (ADA) provides guidance for cutoff values for fasting glucose and random glucose. The ADA defines fasting as no caloric intake for at least 8 hours. Fasting plasma glucose results between 100 to 125 mg/dL indicate increased risk for diabetes (prediabetes). Fasting plasma glucose results greater than or equal to 126 mg/dL meet the criteria for diagnosis of diabetes. In the absence of unequivocal hyperglycemia, results should be confirmed by repeat testing. In a patient with classic symptoms of hyperglycemia or hyperglycemic crisis, random plasma glucose results greater than or equal to 200 mg/dL meet the criteria for diagnosis of diabetes. Reference: Standards of Medical Care in Diabetes 2016, [employer] Association. Diabetes Care. 2016.39(Suppl 1). Performed By: #### 2 4321-2 #### [facility] CLIA [id number] [address] [place] [address] [place] Potassium [Moles/Vol] 4.0 mmol/L Normal 3.7-5.1 [facility] Comment on above: Order Comment: Max white Type: BLOOD SPECIMEN Ordering Facility: [facility] Address: [address] [place] [address] Performed By: #### 2 4321-2 #### [facility] CLIA [id number] [address] [place] [address] [place] Sodium [Moles/Vol] 137 mmol/L Normal 136-144 [facility] Comment on above: Order Comment: Max white Type: BLOOD SPECIMEN Ordering Facility: [facility] Address: [address] [place] [address] Performed By: #### 2 4321-2 #### [facility] CLIA [id number] [address] [place] [address] [place] Urea nitrogen [Mass/Vol] 13 mg/dL Normal 9-24 [facility] Comment on above: Order Comment: Max white Type: BLOOD SPECIMEN Ordering Facility: [facility] Address: [address] [place] [address] Performed By: #### 2 4321-2 #### [facility] CLIA [id number] [address] [place] [address] [place] Anion gap [Moles/Vol] 16 mmol/L Normal 9-18 [facility] Comment on above: Order Comment: Max white Type: BLOOD SPECIMENOrdering Facility: [facility] Address: [address] [place] [address] Performed By: #### 2 777-1, 77030-7, 40489-1, LIPNF ####[facility] [id number] [place] [address] [place] Calcium [Mass/Vol] 9.2 mg/dL Normal 8.5-10.2 [facility] Comment on above: Order Comment: Speci men Type: BLOOD SPECIMENOrdering Facility: [facility] Address: [address] [place] [address] Performed By: #### 2 777-1, 15122-8, , LIPNF ####[facility]IA [id number] [place] [address] [place] Chloride [Moles/Vol] 97 mmol/L Normal 97-105 [facility] Comment on above: Order Comment: Speci men Type: BLOOD SPECIMENOrdering Facility: [facility] Address: [address] [place] [address] Performed By: #### 2 777-1, 92833-9, , LIPNF ####[facility]IA [id number] [place] [address] [place] CO2 [Moles/Vol] 24 mmol/L Normal 22-30 [facility] Comment on above: Order Comment: Speci men Type: BLOOD SPECIMENOrdering Facility: [facility] Address: [address] [place] [address] Performed By: #### 2 777-1, 50532-3, , LIPNF ####[facility]ORY[facility]IA [id number] [place] [address] [place] Creatinine [Mass/Vol] 0.75 mg/dL Normal 0.73-1.22 [facility] Comment on above: Order Comment: Speci men Type: BLOOD SPECIMENOrdering Facility: [facility] Address: [address] [place] [address] Performed By: #### 2 777-1, 86570-6, , LIPNF ####[facility] [id number] [address] [place] ESTIMATED GLOMERULAR FILTRATION RATE 88 mL/min/1.73m??? Normal >=60 [facility] Comment on above: Order Comment: Speci men Type: BLOOD SPECIMENOrdering Facility: [facility] Address: [address] [place] [address] Result Comment: Morena mated Glomerular Filtration Rate (eGFR) is calculated using the 2020 CKD-EPI creatinine equation. This equation utilizes serum creatinine, sex, and age as parameters. The creatinine assay has traceable calibration to isotope dilution-mass spectrometry. Refer to KDIGO guidelines for clinical interpretation. In patients with unstable renal function, e.g. those with acute kidney injury, the eGFR may not accurately reflect actual GFR. Performed By: #### 2 777-1, 51920-7, , LIPNF ####[facility] [id number] [place] [address] [place] Glucose [Mass/Vol] 251 mg/dL High 74-99 [facility] Comment on above: Order Comment: Max white Type: BLOOD SPECIMENOrdering Facility: [facility] Address: [address] [place], [place] [id number] Result Comment: The [place] Diabetes Association (ADA) provides guidance for cutoff values for fasting glucose and random glucose. The ADA defines fasting as no caloric intake for at least 8 hours. Fasting plasma glucose results between 100 to 125 mg/dL indicate increased risk for diabetes (prediabetes). Fasting plasma glucose results greater than or equal to 126 mg/dL meet the criteria for diagnosis of diabetes. In the absence of unequivocal hyperglycemia, results should be confirmed by repeat testing. In a patient with classic symptoms of hyperglycemia or hyperglycemic crisis, random plasma glucose results greater than or equal to 200 mg/dL meet the criteria for diagnosis of diabetes. Reference: Standards of Medical Care in Diabetes 2016, [place] Diabetes Association. Diabetes Care. 2016.39(Suppl 1). Performed By: #### 2 777-1, 26975-7, , LIPNF ####[facility] [id number] [place] [address] [place] Potassium [Moles/Vol] 3.4 mmol/L Low 3.7-5.1 [facility] Comment on above: Order [facility]: [facility] Type: BLOOD SPECIMENOrdering Facility: [facility] Address: [address] [id number] Performed By: #### 2 777-1, 38468-2, , LIPNF ####[facility]ORY[facility]IA [id number] [place] [id number] [place] Sodium [Moles/Vol] 137 mmol/L Normal 136-144 [facility] Comment on above: Order Comment: Speci men Type: BLOOD SPECIMENOrdering Facility: [facility] Address: [address] [place] [address] Performed By: #### 2 777-1, 35436-6, , LIPNF ####[facility]IA [id number] [address] [place] Urea nitrogen [Mass/Vol] 14 mg/dL Normal 9-24 [facility] Comment on above: Order Comment: Speci men Type: BLOOD SPECIMENOrdering Facility: [facility] Address: [address] [place] [address] Performed By: #### 2 777-1, 82159-8, , LIPNF ####[facility] [id number] [address] [place] CASE MGT INIT ASSESon 2021 CASE MGT INIT ASSES HNO ID: [id number] Author: Elizabeth Condon RN Service: ? Author Type: Registered Nurse Type: Care Mgt Initial Assessment Filed: 10/26/2021 1:42 PM Note Text: CARE MANAGEMENT: ASSESSMENT AND DISCHARGE PLAN SERVICE DATE: October 26, 2021 SERVICE TIME: 1:23 PM digital editor spoke with patients spouse to complete Care Management Assessment. Introduction made and role of Care Management explained. PRIMARY CARE PHYSICIAN: No primary care provider on file. Phone: None ADMISSION STATUS: Inpatient Needs Prior to Discharge: To Be Determined;OT/PT Evaluation;Facility or Agency Choices;Accepting Facility;Precertification; Discharge Transportation MEDICAL: [facility] MEDICARE HMO Patient/Grievance Manager Stated Goals: To have reduction in symptoms Health Insurance: [facility] ([facility] MEDICARE/UHC AARP MEDICARE HMO) Health Issues Impacting Discharge Plan: Newly diagnosed;Chronic Newly Diagnosed: DKA Chronic: Epileipsy - Gout - HTN - HLD - Prostate Cancer Last Discharge Date: 01/29/21 Is this Within the Past 30 days? Last discharge within 30 days: No Advance Directive: Current Advance Directive: Health Care Power of Rigger Third;Living Will In Chart: No Health LiteracyHow often do you need to have someone help you when you read instructions, pamphlets, or other written material from your doctor or pharmacy? : 3 - Sometimes How confident are you filling out medical forms by yourself?: 3 - Somewhat Baseline Mental Status Prior to this Illness what was the patient's Baseline Mental Status?: Alert AND Oriented Prior to this illness, has anyone described the patient having any of the following behaviors?: Not Applicable Relationship of the informant to the patient:: Self Functional Status: Needs Assistance Does Patient Currently Receive Any Community Services or Home Care?: None Equipment Prior to Admission: Walker;Tub bench/chair (Tub Grab Bar) Has the Patient Been in a Senior Care Facility in the Past 30 days?: No SOCIAL: Living Arrangements: Home Lives With: Spouse Financial Resources: Retired Primary Contact: Primary Emergency Contact: Radha Wheeler Address: [address] [place] [address] Mobile Relation: Spouse Supportive Patient Contact:: Unable to assess at this time Contact Resources: Family Family Name/Phone: Spouse: Radha Wheeler [phone] - Son: Lino Almanza [phone] (Lives in [place]) Caregiver AssessmentCaregiver is ready, willing and able to meet the patient's needs as recommended by the inter-professional team:: Other: See Comment (Discharge Needs: To be Determined.) Does the patient have an acute stroke diagnosis, or has the patient had a stroke during this admission?: No Patient's transition needs and plan for meeting these needs: Discharge Needs: To be Determined. Patient's perception of need for this admission: N/A Medication Adherance Med Adherance Assessement not completed due to: Other: See Comment (Spouse states she assists patient with his medications at home. Pharmacy preference confirmed: [facility]) Are you interested in bedside delivery of your medications? No Is Patient Psychosocially Complex?: No ASSESSMENT AND PLAN: Medical Needs: Medical Needs: Two or more chronic diseases;Diabetes Psychosocial Needs: Psychosocial Needs: None FREEDOM OF CHOICE EXPLAINED: [place] of Choice Given: Yes Level of Care Discussed: Senior Care Facility;Home Care Financial Disclosure Provided: Yes Financial Disclosure Comments: [facility] Provider Lists Provider List: Senior Care Facility;Home Care Provider list within the patient's requested geographic area shared with the patient/family: Yes within: 10 miles of zip code: [address] Quality and resource use metrics shared with the patient that are relevant to the patient's goals of care and treatment preferences:: Yes Metrics: Functional Status POTENTIAL TRANSITION PLANS Discharge Needs: To Be Determined PT/OT evaluations to aid in discharge planning. (Spouse states she provides assistance at home. She states due to her recent shoulder surgery this has been more difficult for her.) HHC and SNF [facility] Lists given. RN URBANO discussed Private Duty/Non-Medical Care Givers, Home Health Care and Senior Care Facility Services. Discharge Transportation: To Be Determined. CM dept to follow. SIGNATURE: Elizabeth Condon RN PATIENT NAME: Lino Wheeler DATE: October 26, 2021 TIME: 1:23 PM PAGER/CONTACT #: [phone] Normal [facility] CBC W Auto Differential pane l (Bld)on 10-26-2021 Basophils (Bld) [#/Vol] 0.04 10*3/uL Normal <0.11 [facility] Comment on above: Order Comment: Speci men Type: BLOOD SPECIMENOrdering Facility: [facility] Address: [address] [place] [address] Performed By: #### 5 7021-8 ####[facility]IA [id number] [place] [address] [place] Basophils/100 WBC (Bld) 0.4 % Normal [facility] Comment on above: Order Comment: Speci men Type: BLOOD SPECIMENOrdering Facility: [facility] Address: [address] [place] [address] Performed By: #### 5 7021-8 ####[facility]CLIA [id number] [address] [place] Differential cell count method Nom (Bld) Auto Normal [facility] Comment on above: Order Comment: Speci men Type: BLOOD SPECIMENOrdering Facility: [facility] Address: [address] [place] [address] Performed By: #### 5 7021-8 ####[facility]ORYCLIA [id number] [place] [address] [place] Eosinophils (Bld) [#/Vol] 0.09 10*3/uL Normal <0.46 [facility] Comment on above: Order Comment: Speci men Type: BLOOD SPECIMENOrdering Facility: [facility] Address: [address] [place] [address] Performed By: #### 5 7021-8 ####[facility]ORYCLIA [id number] [place] [address] [place] Eosinophils/100 WBC (Bld) 0.9 % Normal [facility] Comment on above: Order Comment: Speci men Type: BLOOD SPECIMENOrdering Facility: [facility] Address: [address] [place] [address] Performed By: #### 5 7021-8 ####[facility]CLIA [id number] [place] [address] [place] Erythrocyte distribution width (RBC) [Ratio] 12.9 % Normal 11.5-15.0 [facility] Comment on above: Order Comment: Speci men Type: BLOOD SPECIMENOrdering Facility: [facility] Address: [address] [place] [address] Performed By: #### 5 7021-8 ####[facility]CLIA [id number] [place] [address] [place] Hematocrit (Bld) [Volume fraction] 42.3 % Normal 39.0-51.0 [facility] Comment on above: Order Comment: Speci men Type: BLOOD SPECIMENOrdering Facility: [facility] Address: [address] [place] [address] Performed By: #### 5 7021-8 ####[facility]CLIA [id number] [place] [address] [place] Hemoglobin (Bld) [Mass/Vol] 14.0 g/dL Normal 13.0-17.0 [facility] Comment on above: Order Comment: Speci men Type: BLOOD SPECIMENOrdering Facility: [facility] Address: [address] [place] [address] Performed By: #### 5 7021-8 ####[facility] [id number] [address] IMMATURE GRAN % 0.4 % Normal [facility] Comment on above: Order Comment: Speci men Type: BLOOD SPECIMENOrdering Facility: [facility] Address: [address] [place] [address] Performed By: #### 5 7021-8 ####[facility] [id number] [address] IMMATURE GRAN ABS 0.04 k/uL Normal <0.10 [facility] Comment on above: Order Comment: Speci men Type: BLOOD SPECIMENOrdering Facility: [facility] Address: [address] [place] [address] Performed By: #### 5 7021-8 ####[facility] [id number] [address] [place] Lymphocytes (Bld) [#/Vol] 2.01 10*3/uL Normal 1.00-4.00 [facility] Comment on above: Order Comment: Speci men Type: BLOOD SPECIMENOrdering Facility: [facility] Address: [address] [place] [address] Performed By: #### 5 7021-8 ####[facility] [id number] [address] Lymphocytes/100 WBC (Bld) 20.1 % Normal [facility] Comment on above: Order Comment: Speci men Type: BLOOD SPECIMENOrdering Facility: [facility] Address: [address] [place] [address] Performed By: #### 5 7021-8 ####[facility]CL[facility] [id number] [address] [place] MCH (RBC) [Entitic mass] 31.1 pg Normal 26.0-34.0 [facility] Comment on above: Order Comment: Speci men Type: BLOOD SPECIMENOrdering Facility: [facility] Address: [address] [place] [address] Performed By: #### 5 7021-8 ####[facility]CLIA [id number] [address] MCHC (RBC) [Mass/Vol] 33.1 g/dL Normal 30.5-36.0 [facility] Comment on above: Order Comment: Speci men Type: BLOOD SPECIMENOrdering Facility: [facility] Address: [address] [place] [address] Performed By: #### 5 7021-8 ####[facility] [id number] [address] MCV (RBC) [Entitic vol] 94.0 fL Normal 80.0-100.0 [facility] Comment on above: Order Comment: Speci men Type: BLOOD SPECIMENOrdering Facility: [facility] Address: [address] [place] [address] Performed By: #### 5 7021-8 ####[facility]CLIA [id number] [address] Monocytes (Bld) [#/Vol] 0.51 10*3/uL Normal <0.87 [facility] Comment on above: Order Comment: Speci men Type: BLOOD SPECIMENOrdering Facility: [facility] Address: [address] [place] [address] Performed By: #### 5 7021-8 ####[facility]CLIA [id number] [address] Monocytes/100 WBC (Bld) 5.1 % Normal [facility] Comment on above: Order Comment: Speci men Type: BLOOD SPECIMENOrdering Facility: [facility] Address: [address] [place] [address] Performed By: #### 5 7021-8 ####[facility]CLIA [id number] [address] Neutrophils (Bld) [#/Vol] 7.31 10*3/uL Normal 1.45-7.50 [facility] Comment on above: Order Comment: Speci men Type: BLOOD SPECIMENOrdering Facility: [facility] Address: [address] [place] [address] Performed By: #### 5 7021-8 ####[facility]CLIA [id number] [address] [place] Neutrophils/100 WBC (Bld) 73.1 % Normal [facility] Comment on above: Order Comment: Speci men Type: BLOOD SPECIMENOrdering Facility: [facility] Address: [address] [place] [address] Performed By: #### 5 7021-8 ####[facility]CLIA [id number] [address] [place] Nucleated RBC (Bld) [#/Vol] 10*3/uL Normal <0.01 [facility] Comment on above: Order Comment: Speci men Type: BLOOD SPECIMENOrdering Facility: [facility] Address: [address] [place] [address] Performed By: #### 5 7021-8 ####[facility]CL[facility] [id number] [address] Nucleated RBC/100 WBC (Bld) [Ratio] 0.0 /100 WBC Normal [facility] Comment on above: Order Comment: Speci men Type: BLOOD SPECIMENOrdering Facility: [facility] Address: [address] [place] [address] Performed By: #### 5 7021-8 ####[facility]CLIA [id number] [address] [place] Platelet mean volume (Bld) [Entitic vol] 10.2 fL Normal 9.0-12.7 [facility] Comment on above: Order Comment: Speci men Type: BLOOD SPECIMENOrdering Facility: [facility] Address: [address] [place] [address] Performed By: #### 5 7021-8 ####[facility]ORYCLIA [id number] [place] [address] [place] Platelets (Bld) [#/Vol] 255 10*3/uL Normal 150-400 [facility] Comment on above: Order Comment: Speci men Type: BLOOD SPECIMENOrdering Facility: [facility] Address: [address] [place] [address] Performed By: #### 5 7021-8 ####[facility] [id number] [place] [address] [place] RBC (Bld) [#/Vol] 4.50 10*6/uL Normal 4.20-6.00 [facility] Comment on above: Order Comment: Speci men Type: BLOOD SPECIMENOrdering Facility: [facility] Address: [address] [place] [address] Performed By: #### 5 7021-8 ####[facility]IA [id number] [place] [address] [place] WBC (Bld) [#/Vol] 10.00 10*3/uL Normal 3.70-11.00 [facility] Comment on above: Order Comment: Speci men Type: BLOOD SPECIMENOrdering Facility: [facility] Address: [address] [place] [address] Performed By: #### 5 7021-8 ####[facility]IA [id number] [place] [id number] [facility] CONSULTon 10-26-2021 CONSULT HNO ID: [id number] Author: Arabella Womack MD Service: Endocrinology Author Type: Physician Type: Consults Filed: 10/26/2021 2:03 PM Note Text: DIABETES INITIAL CONSULT PATIENT NAME: Lnio Wheeler SERVICE DATE: 10/26/2021 REASON FOR CONSULT: DKA REQUESTING PHYSICIAN:ROBY Jenkins PRIMARY CARE PHYSICIAN: No primary care provider on file. Subjective HISTORY OF PRESENT ILLNESS: Mr. Wheeler is a 86 year old male with PMHx of Epilepsy, Gout, HTN, HLP, and prostate cancer presented to the hospital with generalized weakness, admitted with DKA. Patient reports to polydipsia and blurry vision for 3-4 days prior to hospitalization. He denies polyuria, no recent weight loss. At the time of hospitalization, his BG was 644, with an AG-18 and elevated ketones. He had prediabetes and his previous A1c was 6.3 Patient reports that he took Metformin in the past, but he didn tolerate it- had diarrhea He does not have a family history of diabetes mellitus in his parents. The patient has no known microvascular complications of diabetes. Lino has no know macrovascular complications of diabetes. He has been on IV insulin since hospitalization. Regarding symptoms of hyperglycemia, he is experiencing blurry vision and polyuria. PAST MEDICAL HISTORY Diagnosis Date - Chronic pain - Diabetes (HCC) - Epilepsy (HCC) sz approx 20 years ago - History of gout - Hypertension - Mixed hyperlipidemia - Prostate cancer (HCC) s/p seed therapy PAST SURGICAL HISTORY Procedure Laterality Date - BACK SURGERY HX 4 back surgeries - PAST SURGICAL HISTORY OF testicular surgery FAMILY HISTORY Problem Relation Age of Onset - other (SBO) Mother - Tuberculosis Father Social History Tobacco Use - Smoking status: Never Smoker - Smokeless tobacco: Never Used Substance Use Topics - Alcohol use: Not Currently Comment: hasn't drank for 35 years, was a heavy drinker - Drug use: Never CURRENT MEDICATION: Current Facility-Administered Medications Medication Dose Route Frequency Provider Last Rate Last Admin - sodium chloride 0.9 % (flush) 3-5 mL (BD POSIFLUSH) 3-5 mL INTRAVENOUS q 12 H Katiuska Arzola APRN.WINDOWS TECHNICAL SPECIALIST 5 mL at 10/26/21 0830 - NaCl 0.9% iv flush bag 20 mL INTRAVENOUS PRN Katiuska Arzola APRN.WINDOWS TECHNICAL SPECIALIST - levETIRAcetam 500 mg tab(s) (KEPPRA) 500 mg ORAL BID Loice Burgess CONCRETE POINTER.WINDOWS TECHNICAL SPECIALIST 500 mg at 10/26/2130 - rosuvastatin 10 mg tab(s) (CRESTOR) 10 mg ORAL DAILY Loice Arzola, CONCRETE POINTER.WINDOWS TECHNICAL SPECIALIST 10 mg at 10/26/21829 - tamsulosin 0.4 mg cap(s) (FLOMAX) 0.4 mg ORAL DAILY Loice Arzola, CONCRETE POINTER.WINDOWS TECHNICAL SPECIALIST 0.4 mg at 10/26/2130 - atenolol 50 mg tab(s) (TENORMIN) 50 mg ORAL DAILY Loice Arzola, CONCRETE POINTER.WINDOWS TECHNICAL SPECIALIST - allopurinol 300 mg tab(s) (ZYLOPRIM) 300 mg ORAL DAILY Loice ELENA ArzolaN.WINDOWS TECHNICAL SPECIALIST 300 mg at 10/26/21 0830 - oxyCODONE 10 mg - acetaminophen 325 mg tablet (PERCOCET) 1 tablet ORAL q 6 H PRN Katiuska Arzola APRN.WINDOWS TECHNICAL SPECIALIST 1 tablet at 10/26/21 0524 - dextrose 5% in NaCl 0.9% with KCl 20 mEq/L iv infusion 100 mL/hr INTRAVENOUS CONTINUOUS Katiuska Arzola CONCRETE POINTER.WINDOWS TECHNICAL SPECIALIST 100 mL/hr at 10/26/21 0437 100 mL/hr at 10/26/21 0437 - sodium phosphate 30 mmol in D5W 250 mL 30 mmol INTRAVENOUS ONCE Genie Zbigniew Fenton APRN.WINDOWS TECHNICAL SPECIALIST - insulin regular 100 units in NaCl 0.9% 100 mL - DKA/HYPERGLYCEMIA NOMOGRAM 0.5-25.9 Units/hr INTRAVENOUS CONTINUOUS Deepaice , CONCRETE POINTER.WINDOWS TECHNICAL SPECIALIST 1.7 mL/hr at 10/26/21 0812 1.7 Units/hr at 10/26/21 0812 Allergies As of Date: 10/25/2021 Allergen Noted Reaction DILAUDID [HYDROMORPHONE (BULK)] 03/08/2017 Mental Status Change PENICILLIN 01/14/2017 Unknown TORADOL [KETOROLAC] 01/14/2017 Itching Fully Assessed 10/25/2021 General: no fever, chills or acute changes in weight in the last 6 months Skin: no rashes, pruritis or dry skin Eyes: + blurred vision, no eye pain Cardiac: denies chest pain, heart palpitations or orthopnea Pulmonary: denies wheezing, productive cough or exertional dyspnea GI: denies nausea, vomiting, diarrhea or constipation Endocrine: denies polyuria, polydipsia, nocturia, blurry vision or excessive fatigue Objective PHYSICAL EXAM: BP 125/57 Pulse 70 Temp 37.1 ?C (98.8 ?F) Resp 14 Ht 175.3 cm (5' 9) Wt 82.2 kg (181 lb 3.5 oz) SpO2 95% BMI 26.76 kg/m2 General: Well appearing, alert, in no acute distress Skin: skin color, texture, turgor normal, no rashes or lesions. Head: normocephalic, no masses, lesions, tenderness or abnormalities. Eyes: Anicteric sclera. Extraocular movements are intact. Neck: Supple, no adenopathy; thyroid symmetric, normal size Heart: RRR without murmur Abdomen: soft, non-tender, positive bowel sounds Extremities: no edema, no calluses or ulcers present. DATA: Diagnostic tests reviewed for today's visit: Most recent labs and BG Ref. Range 10/25/2021 22:23 10/26/2021 03:57 Sodium Latest Ref Range: 136 - 144 mmol/L 126 (L) 137 Potassium Latest Ref Range: 3.7 - 5.1 mmol/L 4.7 3.4 (L) Chloride Latest Ref Range: 97 - 105 mmol/L 87 ( (more content not included)... Normal [facility] Comprehensive metabolic 2000 panelon 10-26-2021 Albumin [Mass/Vol] 3.8 g/dL Low 3.9-4.9 [facility] Comment on above: Order Comment: Max white Type: BLOOD SPECIMENOrdering Facility: [facility] Address: [address] [place] [address] Performed By: #### 1 9123-9, 29693-7, AMBAR, 59679-3, B ####[facility]ATORYCLIA [id number] [address] [place] ALP [Catalytic activity/Vol] 119 U/L High 38-113 [facility] Comment on above: Order Comment: Max white Type: BLOOD SPECIMENOrdering Facility: [facility] Address: [address] [place] [address] Performed By: #### 1 9123-9, 14707-1, AMBAR, 68614-7, B ####[facility]ORYCLIA [id number] [address] [place] [facility] ALT [Catalytic activity/Vol] 25 U/L Normal 10-54 [facility] Comment on above: Order Comment: Max white Type: BLOOD SPECIMENOrdering Facility: [facility] Address: [address] [place] [address] Performed By: #### 1 9123-9, 75604-0, AMBAR, 36164-1, B ####[facility]ORYCLIA [id number] [address] Anion gap [Moles/Vol] 18 mmol/L Normal 9-18 [facility] Comment on above: Order Comment: Speci men Type: BLOOD SPECIMENOrdering Facility: [facility] Address: [address] [place] [address] Performed By: #### 1 9123-9, 82964-1, AMBAR, 03613-6, BHB ####[facility]ORYCLIA [id number] [place] [address] [place] AST [Catalytic activity/Vol] 43 U/L High 14-40 [facility] Comment on above: Order Comment: Speci men Type: BLOOD SPECIMENOrdering Facility: [facility] Address: [address] [place] [address] Performed By: #### 1 9123-9, 01865-3, AMBAR, 07224-1, BHB ####[facility]ORYCLIA [id number] [address] [place] Bilirubin [Mass/Vol] 0.8 mg/dL Normal 0.2-1.3 [facility] Comment on above: Order Comment: Speci men Type: BLOOD SPECIMENOrdering Facility: [facility] Address: [address] [place] [address] Performed By: #### 1 9123-9, 41721-3, AMBAR, 57379-6, BHB ####[facility]ORYCLIA [id number] [address] [place] [facility] Calcium [Mass/Vol] 9.3 mg/dL Normal 8.5-10.2 [facility] Comment on above: Order Comment: Speci men Type: BLOOD SPECIMENOrdering Facility: [facility] Address: [address] [place] [address] Performed By: #### 1 9123-9, 80718-9, AMBAR, 76198-9, BHB ####[facility]ORATORYCLIA [id number] [place] [address] [place] Chloride [Moles/Vol] 87 mmol/L Low 97-105 [facility] Comment on above: Order Comment: Speci men Type: BLOOD SPECIMENOrdering Facility: [facility] Address: [address] [place] [address] Performed By: #### 1 9123-9, 19355-5, AMBAR, 73117-0, B ####[facility]ATORYCLIA [id number] [address] CO2 [Moles/Vol] 21 mmol/L Low 22-30 [facility] Comment on above: Order Comment: Speci men Type: BLOOD SPECIMENOrdering Facility: [facility] Address: [address] [place] [address] Performed By: #### 1 9123-9, 42439-9, AMBAR, 61621-5, B ####[facility]ATORYCLIA [id number] [address] Creatinine [Mass/Vol] 0.86 mg/dL Normal 0.73-1.22 [facility] Comment on above: Order Comment: Speci men Type: BLOOD SPECIMENOrdering Facility: [facility] Address: [address] [place] [address] Performed By: #### 1 9123-9, 48837-8, AMBAR, 46005-3, B ####[facility]ATORYCLIA [id number] [address] ESTIMATED GLOMERULAR FILTRATION RATE 84 mL/min/1.73m??? Normal >=60 [facility] Comment on above: Order Comment: Speci men Type: BLOOD SPECIMENOrdering Facility: [facility] Address: [address] [place] [address] Result Comment: Morena mated Glomerular Filtration Rate (eGFR) is calculated using the 2020 CKD-EPI creatinine equation. This equation utilizes serum creatinine, sex, and age as parameters. The creatinine assay has traceable calibration to isotope dilution-mass spectrometry. Refer to KDIGO guidelines for clinical interpretation. In patients with unstable renal function, e.g. those with acute kidney injury, the eGFR may not accurately reflect actual GFR. Performed By: #### 1 9123-9, 07883-2, AMBAR, 14684-0, BHB ####[facility]ATORYCLIA [id number] [place] [address] [place] Glucose [Mass/Vol] 622 mg/dL High 74-99 [facility] Comment on above: Order Comment: Max white Type: BLOOD SPECIMENOrdering Facility: [facility] Address: [address] [place], [place] [id number] Result Comment: The [place] Diabetes Association (ADA) provides guidance for cutoff values for fasting glucose and random glucose. The ADA defines fasting as no caloric intake for at least 8 hours. Fasting plasma glucose results between 100 to 125 mg/dL indicate increased risk for diabetes (prediabetes). Fasting plasma glucose results greater than or equal to 126 mg/dL meet the criteria for diagnosis of diabetes. In the absence of unequivocal hyperglycemia, results should be confirmed by repeat testing. In a patient with classic symptoms of hyperglycemia or hyperglycemic crisis, random plasma glucose results greater than or equal to 200 mg/dL meet the criteria for diagnosis of diabetes. Reference: Standards of Medical Care in Diabetes 2016, [place] Diabetes Association. Diabetes Care. 2016.39(Suppl 1). Performed By: #### 1 9123-9, 77317-4, AMBAR, 08034-9, B ####[facility]ORYCLIA [id number] [place] [address] [place] Potassium [Moles/Vol] 4.7 mmol/L Normal 3.7-5.1 [facility] Comment on above: Order Comment: Max white Type: BLOOD SPECIMENOrdering Facility: [facility] Address: [address] [place], [place] [id number] Performed By: #### 1 9123-9, 80856-3, AMBAR, 37930-0, B ####[facility]ORYCLIA [id number] [place] [address] [place] Protein [Mass/Vol] 6.9 g/dL Normal 6.3-8.0 [facility] Comment on above: Order Comment: Max white Type: BLOOD SPECIMENOrdering Facility: [facility] Address: [address] [id number] Performed By: #### 1 9123-9, 31909-5, AMBAR, 69021-6, B ####[facility]ATORYCLIA [id number] [address] Sodium [Moles/Vol] 126 mmol/L Low 136-144 [facility] Comment on above: Order Comment: Max white Type: BLOOD SPECIMENOrdering Facility: [facility] Address: [address] [place] [address] Performed By: #### 1 9123-9, 65525-6, AMBAR, 18678-2, B ####[facility]ORYCLIA [id number] [address] Urea nitrogen [Mass/Vol] 19 mg/dL Normal 9-24 [facility] Comment on above: Order Comment: Max white Type: BLOOD SPECIMENOrdering Facility: [facility] Address: [address] [place] [address] Performed By: #### 1 9123-9, 16882-6, AMBAR, 54355-2, B ####[facility]ORYCLIA [id number] [address] ED NOTEon 10-26-2021 ED NOTE HNO ID: [id number] Author: Josias Brewster RN Service: Nursing Author Type: Registered Nurse Type: ED Notes Filed: 10/26/2021 12:39 AM Note Text: Report given to Mirella YANES. Normal [facility] GAD65 Ab Ser-aCncon 10-27-19 22 Glutamate decarboxylase 65 Ab Qn (S) <5.0 Normal <=5.0 [facility] Comment on above: Order Comment: Max white Type: BLOOD SPECIMENOrdering Facility: [facility] Address: [address] [place] [address] Result Comment: Anti -glutamic acid decarboxylase antibody (GAD65) test usually in conjunction with another test such as IA-2 antibody is used as an aid in establishing the autoimmune nature of previously-diagnosed type I diabetes mellitus or in predicting of progression to type I diabetes mellitus in patients with certain autoimmune diseases including autoimmune gastritis among others. It is also used as an aid in diagnosis of stiff person syndrome and certain autoimmune nervous system diseases. Clinical correlation is required. Performed By: #### 1 3926-1 ####[facility] LABCLIA [id number] DANIELKimmie [id number] [address] [place] Gas and Carbon monoxide pane l (BldV)on 10-26-2021 BASE DEFICIT, VENOUS -4 mmol/L Low -2-0 [facility] Comment on above: Order Comment: Speci men Type: BLOOD SPECIMEN [facility] Address: [address] [place] [address] Performed By: #### 2 4321-2 #### [facility] CLIA [id number] [address] [place] [address] [place] Carboxyhemoglobin (BldV) [Mass fraction] 1.3 % Normal 0.0-2.0 [facility] Comment on above: Order Comment: Ashleyi men Type: BLOOD SPECIMEN [facility] Address: [address] [place] [address] Result Comment: Carb oxyhemoglobin Reference Range for Smokers: 2.0-8.0% Performed By: #### 2 4321-2 #### [facility] CLIA [id number] [address] [place] [address] [place] CO2 (BldV) [Partial pressure] 43 mm[Hg] Normal 42-55 [facility] Comment on above: Order Comment: Ashleyi men Type: BLOOD SPECIMEN [facility] Address: [address] [place] [address] Performed By: #### 2 4321-2 #### [facility] CLIA [id number] [address] [place] [address] [place] CO2 adjusted to patient's actual temperature (BldV) [Partial pressure] Normal [facility] Comment on above: Order Comment: Speci men Type: BLOOD SPECIMEN [facility] Address: [address] [place] [address] Performed By: #### 2 4321-2 #### [facility] CLIA [id number] [address] [place] [address] [place] HCO3 (Bld) [Moles/Vol] 22 mmol/L Low 24-28 [facility] Comment on above: Order Comment: Speci men Type: BLOOD SPECIMEN [facility] Address: [address] [place] [address] Performed By: #### 2 4321-2 #### [facility] CLIA [id number] [address] Hemoglobin (Bld) [Mass/Vol] 14.7 g/dL Normal 13.0-17.0 [facility] Comment on above: Order Comment: Speci men Type: BLOOD SPECIMEN [facility] Address: [address] [place] [address] Performed By: #### 2 4321-2 #### [facility] CLIA [id number] [address] [place] Lactate [Moles/Vol] 2.6 mmol/L High 0.5-2.2 [facility] Comment on above: Order Comment: Speci men Type: BLOOD SPECIMEN [facility] Address: [address] [place] [address] Performed By: #### 2 4321-2 #### [facility] CLIA [id number] [address] O2 THERAPY RA=Room Air [facility] Comment on above: Order Comment: Speci men Type: BLOOD SPECIMEN [facility] Address: [address] [place] [address] Performed By: #### 2 4321-2 #### [facility] CLIA [id number] [address] [place] Oxygen (BldV) [Partial pressure] 31 mm[Hg] Low 35-45 [facility] Comment on above: Order Comment: Speci men Type: BLOOD SPECIMEN [facility] Address: [address] [place] [address] Performed By: #### 2 4321-2 #### [facility] CLIA [id number] [address] Oxygen adjusted to patient's actual temperature (BldV) [Partial pressure] [facility] Comment on above: Order Comment: Speci men Type: BLOOD SPECIMEN [facility] Address: [address] [place] [address] Performed By: #### 2 4321-2 #### [facility] CLIA [id number] [address] Oxyhemoglobin (BldV) [Mass fraction] 53 % Low 60-85 [facility] Comment on above: Order Comment: Speci men Type: BLOOD SPECIMEN [facility] Address: [address] [place] [address] Performed By: #### 2 4321-2 #### [facility] CLIA [id number] [address] [place] pH (BldV) 7.33 [pH] Normal 7.32-7.42 [facility] Comment on above: Order Comment: Speci men Type: BLOOD SPECIMEN [facility] Address: [address] [place] [address] Performed By: #### 2 4321-2 #### [facility] CLIA [id number] [address] pH adjusted to patient's actual temperature (BldV) Normal [facility] Comment on above: Order Comment: Speci men Type: BLOOD SPECIMEN [facility] Address: [address] [place] [address] Performed By: #### 2 4321-2 #### [facility] CLIA [id number] [address] [place] Potassium [Moles/Vol] 4.5 mmol/L Normal 3.5-5.0 [facility] Comment on above: Order Comment: Speci men Type: BLOOD SPECIMEN [facility] Address: [address] [place] [address] Performed By: #### 2 4321-2 #### [facility] CLIA [id number] [address] [place] Glutamate decarboxylase 65 A b Qn (S)on 10-26-2021 GLUTAMIC ACID DECARBOXYLAS AB QUALITATIVE Negative Normal Negative [facility] Comment on above: Order Comment: Speci men Type: BLOOD SPECIMENOrdering Facility: [facility] Address: [address] [place] [address] Performed By: #### 1 3926-1 ####[facility] LABCL[facility] [id number] [address] [place] HGB A1Con 10-26-2021 Average glucose Estimated from glycated hemoglobin (Bld) [Mass/Vol] 278 mg/dL Normal [facility] Comment on above: Order Comment: Max [facility] Type: BLOOD SPECIMENOrdering Facility: [facility] Address: [address] [place] [address] Result Comment: eAG: (Estimated average glucose) is a calculated value from HgbA1c and is insurance service representative of the average blood glucose level in the last 2-3 month period. Performed By: #### H BA1C ####[facility] LAB[facility] [id number] [address] [place] HbA1c (Bld) [Mass fraction] 11.3 % High 4.3-5.6 [facility] Comment on above: Order Comment: [facility] Type: BLOOD SPECIMENOrdering Facility: [facility] Address: [address] [place] [address] Result Comment: [place] Diabetes Association guidelines indicate that patients with HgbA1c in the range 5.7-6.4% are at increased risk for development of diabetes, and intervention by lifestyle modification may be beneficial. HgbA1c greater or equal to 6.5% is considered diagnostic of diabetes. Performed By: #### H BA1C ####[facility] LABCL[facility] [id number] [address] [place] HISTORY PHYSICALon 2 HISTORY PHYSICAL HNO ID: [id number] Author: Leonard Jones MD Service: Pulmonary Disease Author Type: Physician Type: HANDP Filed: 10/26/2021 11:05 AM Note Text: ICU ADMISSION HISTORY AND PHYSICAL ASSESSMENT AND PLAN: 86-year-old man with prior history of diabetes was admitted with hyperglycemia and concern for DKA 1. Hyperglycemia 2. Diabetic ketoacidosis 3. Hypertension 4. Hyperlipidemia 5. History of seizure disorder 6. Chronic back pain -Plan to start long-acting insulin with Lantus today and then stop insulin infusion. -Body scale insulin with meals. Start diet at lunchtime. -Endocrinology consulted -Continue atenolol -On Keppra for seizure disorder -Continue chronic oxycodone for back pain. -Continue statin -Consult PT Okay for transfer out of the ICU today ICU Checklist Last Documented/Reviewed time: 10/26/2021 9:16 AM A= Assess, Prevent, Manage Pain Pain adequately controlled?: Yes C= Choice of Sedation and Analgesia RASS at Goal?: (Comment: n/a) B= Both Spontaneous Awakening and Breathing Trials Ventilator: None D= Delirium: Assess, Prevent and Manage ICU Delirium Status: CAM Negative - no action required Sleep adequate?: Yes Restraint Status: None E= Early Mobility/Excercise ICU Mobility: ICU Mobility-Pt Has Been Out of Bed: PT Consult - Specify F= Family Engagement and Empowerment ICU plan of care visit at bedside in last 24 hours: Yes, Provider, RN, Patient/ designee ICU Disposition: ICU Disposition- Is Patient Clinically Ready to Transfer [facility] or [facility]?: Yes, transfer to [facility] or [facility] today Discharge Planning: Home Prevention: Line Status: None [place] Status: None Pressure Injury Status: None GI/Stress Ulcer Prophylaxis: None - not required Nutrition is at Goal: Yes VTE Prophylaxis: Chemoprophylaxis: Heparin SQ Mechanical Prophylaxis: Knee high SCD Patient/Family Updated: Patient, Lino Caldwell Summer, contacted. They were updated on the patient's goals of care, medical plan for the day, decorator consultant recommendations, medical disposition and current medical condition/prognosis as and if clinically indicated. All questions and concerns were answered and addressed at this juncture. They were contacted on October 26, 2021. The duration of the conversation was 5 minutes. Plan of care discussed with: Provider, RN, Patient. Chief Complaint: Generalized weakness History of Present Illness: 86-year-old man who presented to the hospital overnight with generalized weakness and generally not feeling well for a period of 4 days. He had some recent nausea and vomiting. He was found to be hyperglycemic with positive serum ketones on labs. He also had an anion gap metabolic acidosis. Because of this there was concern for DKA and he was started on an insulin infusion prior to being admitted to the ICU. This morning, he tells me he is feeling well. He denies any significant pain but he does take Percocet chronically for chronic back pain. Of note, he was told that he had type 2 diabetes many years ago and was on Metformin. This was stopped due to some intolerance and his primary care physician later told him that he no longer had diabetes. Review of Systems: GENERAL: No weight loss, malaise or fevers. HEENT: Negative for frequent or significant headaches, No changes in hearing or vision, no nose bleeds or other nasal problems RESPIRATORY: Negative for cough, hemoptysis, wheezing, COPD, dyspnea or shortness of breath CARDIOVASCULAR: Negative for chest pain, leg swelling, hypertension, CHF or palpitations GI: No nausea, vomiting, or diarrhea MUSCULOSKELETAL: back pain SKIN: Negative for lesions, rash, and itching. The remainder of the review of systems is negative. PAST MEDICAL HISTORY Diagnosis Date - Chronic pain - Diabetes (HCC) - Epilepsy (HCC) sz approx 20 years ago - History of gout - Hypertension - Mixed hyperlipidemia - Prostate cancer (HCC) s/p seed therapy Family History Problem Relation Age of Onset - other (SBO) Mother - Tuberculosis Father Social History: Lives with his . Never smoker Physical Exam Vital signs and telemetry waveform data reviewed General : Well nourished, in no distress Eyes: Pupils equal, round, and reactive. No scleral icterus ENT: Trachea midline, normal dentition Heart: RRR, no murmurs Lungs: clear to auscultation bilaterally, no wheezes rales, or rhonchi. Equal air entry bilaterally Abdomen: Soft and nontender, normal bowel sounds Musculoskeletal: no bony or joint deformity, no cyanosis or clubbing Neuro: Alert and oriented x3, moves all extremities Skin: No acute rash or skin change, skin is normal to palpation Hemoglobin (g/dL) Date Value 10/25/2021 14.0 Hematocrit (%) Date Value 10/25/2021 42.3 WBC (k/uL) Date Value 10/25/2021 10.00 (more content not included)... Normal [facility] HISTORY PHYSICAL HNO ID: [id number] Author: Katiuska Arzola APRN.CNP Service: Critical Care Author Type: Nurse Practitioner Type: HANDP Filed: 10/26/2021 1:56 AM Note Text: SERVICE DATE: 10/26/2021 SERVICE TIME: 1:54 AM [facility] HAND[facility] NOTE HPI: This is an 86 year old male who presented to [facility] with generalized weakness and not feeling well x4 days. He reports being tired and having a recent episode of vomiting 3 days ago and an episode of diarrhea x1 today. PMHx significant for type 2 diabetes- reportedly placed on metformin for 2 years but discontinued ?many years ago? due to intolerance, Epilepsy, Gout, chronic back pain, HTN, HLP, and prostate cancer.He reports that his PCP told him he did not have diabetes thus he does not check his blood glucose. In the ED: initial blood glucose 622, corrected sodium 134, anion gap 18, Venous pH 7.33, bicarbonate 22, urine ketones +ve, serum ketones >4.50. He received 1 L IVF bolus and an insulin infusion was started. On Arrival to the ICU, he is alert and oriented x3, he denies chest pain or shortness of breath. He endorses chronic back pain 03/27 that he states was exacerbated by laying on the ED cot (he takes Percocet at home which he states relieves the chronic pain). He denies abdominal pain or tenderness. He endorses lack of appetite. He denies burning with urination, productive cough or any recent infection. Subjective PAST MEDICAL HISTORY Diagnosis Date - Chronic pain - Diabetes (HCC) - Epilepsy (HCC) sz approx 20 years ago - History of gout - Hypertension - Mixed hyperlipidemia - Prostate cancer (HCC) s/p seed therapy PAST SURGICAL HISTORY Procedure Laterality Date - BACK SURGERY HX 4 back surgeries - PAST SURGICAL HISTORY OF testicular surgery FAMILY HISTORY Problem Relation Age of Onset - other (SBO) Mother - Tuberculosis Father Social History Occupational History Not on file Tobacco Use Smoking status: Never Smoker Smokeless tobacco: Never Used Substance and Sexual Activity Alcohol use: Not Currently Comment: hasn't drank for 35 years, was a heavy drinker Drug use: Never Sexual activity: Not on file ALLERGIES Allergen Reactions - Dilaudid [Hydromorp* Mental Status Change - Penicillin Unknown - Toradol [Ketorolac] Itching PRIOR TO ADMISSION MEDICATIONS: tamsulosin (FLOMAX) 0.4 mg, Take 0.4 mg by mouth once daily., Disp: , Rfl: traMADol (ULTRAM) 50 mg tablet, 1 tablet as needed, Disp: , Rfl: phenazopyridine (PYRIDIUM, GERIDIUM) 100 mg tablet, Take 1 tablet by mouth three times daily as needed (Urinary Symptoms)., Disp: 6 tablet, Rfl: 0 levETIRAcetam (KEPPRA) 500 mg tablet, Take 500 mg by mouth twice daily., Disp: , Rfl: oxyCODONE-acetaminophen (PERCOCET) 10-325 mg tablet, 1 tablet as needed, Disp: , Rfl: allopurinol (ZYLOPRIM) 300 mg tablet, Take 300 mg by mouth once daily., Disp: , Rfl: rosuvastatin (CRESTOR) 10 mg tablet, Take 10 mg by mouth once daily., Disp: , Rfl: atenolol (TENORMIN) 50 mg tablet, Take 50 mg by mouth once daily., Disp: , Rfl: HYDROcodone-acetaminophen (NORCO) 5-325 mg per tablet, Take 1 tablet by mouth every 6 hours as needed. (Patient not taking: Reported on 07/23/2019), Disp: 11 tablet, Rfl: 0 REVIEW OF SYSTEMS: PAIN ASSESSMENT: HISTORY OF CHRONIC PAIN OR CURRENTLY BEING TREATED FOR A CHRONIC PAIN CONDITION: on home pain medications GENERAL: Fatigue RESPIRATORY: Negative for cough, hemoptysis, wheezing, COPD, dyspnea or shortness of breath CARDIOVASCULAR: Hypertension GI: Positive for diarrhea and vomiting : See HPI ENDOCRINE: Positive for diabetes. NEURO: Seizures Objective Admission Weight: Weight: 77.5 kg (170 lb 12.8 oz) VITAL SIGNS BP 159/89 Pulse 80 Temp (Src) 98.3 (Tympanic) Resp 33 Ht 5' 9 (1.75m) Wt 181 lb 3.5 oz (82.2kg) SpO2 96% BMI 26.75 kg/(m2). O2 Therapy: Room Air potassium iv infusion CUSTOM insulin regular, Last Rate: 5.1 Units/hr (10/26/21 0118) RESPIRATORY Mechanical Ventilation: on room air PHYSICAL EXAM Neuro: Awake, Follows commands, Alert and Moving all extremities Pulmonary: Clear to auscultation. Breath Sounds Equal: Yes Cardiovascular: Regular rhythm Abdomen: Nontender Extremities: Edema- No Peripheral pulses- Present all extremities - patient with tape on right eye lid (states he does this daily to hold Up the drooping eye so that he can see) DATA: Diagnostic tests reviewed for today's visit: Most recent labs Most recent imaging Most recent EKG Recent Labs 10/25/212222 WBC 10.00 HB 14.0 HCT 42.3 PLT 255 NA 126* K 4.7 CHLOR 87* CO2 21* BUN 19 CREAT 0.86 GLUC 622* CA 9.3 MG 1.8 Recent Labs 10/25/212222 TPROT 6.9 ALB 3.8* ALT 25 AST 43* ALKPHOS 119* TBILI 0.8 LACT 2.6* Cardiac Enzymes Recent Labs 10/25/212222 TROPT 0.010 Assessment AND Plan Active Hospital Problems as of 10/26/2021 Noted - [address] [facility] (more content not included)... Normal [facility] KETONES/ACETONE/BHBon 2021 Beta hydroxybutyrate [Moles/Vol] >4.50 High <0.28 [facility] Comment on above: Order Comment: Speci men Type: BLOOD SPECIMENOrdering Facility: [facility] Address: [address] [place] [phone] Performed By: #### 1 9123-9, 13830-1, AMBAR, 48442-9, BHB ####[facility]ATORYCLIA [id number] [place] [address] [place] LIPID PANEL, NONFASTINGon Cholesterol [Mass/Vol] 105 mg/dL Normal <200 [facility] Comment on above: Order Comment: Speci christopher Type: BLOOD SPECIMENOrdering Facility: [facility] Address: [address] [place] [phone] Result Comment: <200 mg/dL, Desirable 200-239 mg/dL, Borderline high >239 mg/dL, High Performed By: #### 2 777-1, 65826-3, , LIPNF ####[facility]ORATORYCLIA [id number] [address] HDL CHOLESTEROL, NF 39 mg/dL Low >39 [facility] Comment on above: Order Comment: Ash[place] white Type: BLOOD SPECIMENOrdering Facility: [facility] Address: [address] [place] [address] Result Comment: 40-5 9 mg/dL, Acceptable >59 mg/dL, High: Negative risk factor for coronary heart disease <40 mg/dL, Low: Positive risk factor for coronary heart disease Performed By: #### 2 777-1, 46484-3, , LIPNF ####[facility]ORATORYCLIA [id number] [address] LDL CHOLESTEROL, NF 29 mg/dL Normal <100 [facility] Comment on above: Order Comment: [facility] Type: BLOOD SPECIMENOrdering Facility: [facility] Address: [address] [address] Result Comment: <100 mg/dL, Optimal 100-129 mg/dL, Near optimal/above optimal 130-159 mg/dL, Borderline high 160-189 mg/dL, High >189 mg/dL, Very high Secondary prevention optimal LDL Cholesterol levels are recommended to be < 70 mg/dL Performed By: #### 2 777-1, 17360-3, , LIPNF ####[facility]ATORYCLIA [id number] [address] LDL/HDL RATIO, NF 0.74 mg/dL Normal <2.54 [facility] Comment on above: Order Comment: [facility] Type: BLOOD SPECIMENOrdering Facility: [facility] Address: [address] [address] Result Comment: Refe rence: 1. National Cholesterol Education Program ATP III Guideline At-A-Glance Quick Desk Reference: National Heart, Lung, and Blood [place]. National Institutes of Health. 2001: NIH Publication No. 01-3305. 2. An International Atherosclerosis Society position paper: global recommendations for the management of dyslipidemia: executive summary, Atherosclerosis. 2014: 232(2):410-413. Performed By: #### 2 777-1, 16274-8, , LIPNF ####[facility]ATORYCLIA [id number] [address] NON HDL CHOL, NF 66 mg/dL Normal <130 [facility] Comment on above: Order Comment: Speci men Type: BLOOD SPECIMENOrdering Facility: [facility] Address: [address] [place] [address] Result Comment: <130 mg/dL, Optimal 130-159 mg/dL, Near optimal/above optimal 160-189 mg/dL, Borderline high 190-219 mg/dL, High >219 mg/dL, Very high Secondary prevention optimal non HDL Cholesterol levels are recommended to be <100 mg/dL Performed By: #### 2 777-1, 79170-0, , LIPNF ####[facility]ATORYCLIA [id number] [address] T CHOL/HDL RATIO NF 2.69 mg/dL Normal <5.10 [facility] Comment on above: Order Comment: [facility] Type: BLOOD SPECIMENOrdering Facility: [facility] Address: [address] [place] [address] Performed By: #### 2 777-1, 63052-5, , LIPNF ####[facility]ORATORYCLIA [id number] [address] TRIGLYCERIDES, NF 183 mg/dL High <150 [facility] Comment on above: Order Comment: Speci men Type: BLOOD SPECIMENOrdering Facility: [facility] Address: [address] [place] [address] Result Comment: <150 mg/dL, Normal 150-199 mg/dL, Borderline high 200-499 mg/dL, High >499 mg/dL, Very high Performed By: #### 2 777-1, 63617-6, , LIPNF ####[facility]ORATORYCLIA [id number] [address] VLDL CHOLESTEROL, NF 37 mg/dL High <30 [facility] Comment on above: Order Comment: Speci men Type: BLOOD SPECIMENOrdering Facility: [facility] Address: [address] [place] [address] Performed By: #### 2 777-1, 82571-9, , LIPNF ####[facility]ORYCLIA [id number] [place] [address] [place] Magnesium SerPl-mCncon 10-26 Magnesium [Mass/Vol] 2.2 mg/dL Normal 1.7-2.3 [facility] Comment on above: Order Comment: Speci men Type: BLOOD SPECIMENOrdering Facility: [facility] Address: [address] [place] [address] Performed By: #### 2 777-1, 15508-4, , LIPNF ####[facility]ATORYCLIA [id number] [place] [address] [place] [facility] Magnesium [Mass/Vol] 1.8 mg/dL Normal 1.7-2.3 [facility] Comment on above: Order Comment: Speci men Type: BLOOD SPECIMENOrdering Facility: [facility] Address: [address] [place] [address] Performed By: #### 1 9123-9, 12187-1, AMBAR, 02267-0, BHB ####[facility]ORYCLIA [id number] [place] [address] [place] NT-proBNP SerPl-mCncon 10-26 Natriuretic peptide.B prohormone N-Terminal [Mass/Vol] 377 pg/mL Normal <450 [facility] Comment on above: Order Comment: Speci men Type: BLOOD SPECIMENOrdering Facility: [facility] Address: [address] [place] [address] Performed By: #### 1 9123-9, 65140-1, AMBAR, 19585-7, BHB ####[facility]ORYCLIA [id number] [place] [address] [place] Osmolality SerPlon 2 Osmolality [Osmolality] 297 mosm/kg Normal 275-300 [facility] Comment on above: Order Comment: Speci men Type: BLOOD SPECIMENOrdering Facility: [facility] Address: [address] [place] [address] Performed By: #### 2 692-2 ####[facility] LABCLIA [id number] [place] [address] [place] Osmolality Uron 10-26-2021 Osmolality (U) [Osmolality] 578 mosm/kg Normal 50-1,200 [facility] Comment on above: Order Comment: Speci men Type: URINE SPECIMENOrdering Facility: [facility] Address: [address] [place] [address] Performed By: #### 2 695-5 ####[facility] LABCLIA [id number] [place] [address] [place] Phosphate SerPl-mCncon 10-26 Phosphate [Mass/Vol] 2.0 mg/dL Low 2.7-4.8 [facility] Comment on above: Order Comment: Speci men Type: BLOOD SPECIMENOrdering Facility: [facility] Address: [address] [place] [address] Performed By: #### 2 777-1, 93701-8, 36420-5, LIPNF ####[facility]ORYCLIA [id number] [place] [address] [place] SARS-CoV-2 RNA Resp Ql LINDA+p robeon 10-26-2021 SARS-CoV-2 (COVID-19) RNA LINDA+probe Ql (Resp) COVID 19 RESULT: SARS-CoV-2 (Agent of COVID-19) Not Detected by RT-PCR or equivalent method. This test has been authorized by FDA under an Emergency Use Authorization (EUA). Normal [facility] Comment on above: Performed By: #### 9 4500-6 ####[facility]ORYCLIA [id number] [place] [address] [place] STAPH AUREUS PCRon 2 S. aureus and MRSA panel LINDA+probe (Nose) Abnormal Negative [facility] Comment on above: Order Comment: Speci men Type: SWAB OF INTERNAL NOSEOrdering Facility: [facility] Address: [address] [place] [address] Result Comment: Posi tive for Staphylococcus aureus by PCR. Negative for MRSA by PCR Performed By: #### S APCR ####[facility] LABCLIA [id number] [facility]ENUEDESK [id number] [place] TROPONIN Ton 10-26-2021 Troponin T.cardiac [Mass/Vol] 0.010 ug/L Normal 0.000-0.029 [facility] Comment on above: Order Comment: Speci men Type: BLOOD SPECIMENOrdering Facility: [facility] Address: [address] [place] [address] Performed By: #### 1 9123-9, 87258-8, AMBAR, 29236-2, BHB ####[facility]ATORYCLIA [id number] [address] [place] URINALYSIS, REFLEX MICROSCOP ICon 10-26-2021 Bilirubin Ql (U) Negative Normal Negative [facility] Comment on above: Order Comment: Speci men Type: BLOOD SPECIMEN [facility] Address: [address] [place] [address] Performed By: #### 2 4321-2 #### [facility] CLIA [id number] [address] [place] Clarity (Unsp spec) Clear Normal Clear [facility] Comment on above: Order Comment: Speci men Type: BLOOD SPECIMEN [facility] Address: [address] [place] [address] Performed By: #### 2 4321-2 #### [facility] CLIA [id number] [address] Color (U) Yellow Normal Yellow [facility] Comment on above: Order Comment: Speci men Type: BLOOD SPECIMEN [facility] Address: [address] [place] [address] Performed By: #### 2 4321-2 #### [facility] CLIA [id number] [address] Glucose Test strip (U) [Mass/Vol] 3+ Abnormal Negative [facility] Comment on above: Order Comment: Speci men Type: BLOOD SPECIMEN [facility] Address: [address] [address] Performed By: #### 2 4321-2 #### [facility] CLIA [id number] [address] STATES [facility] Hemoglobin Ql (U) 1+ Abnormal Negative [facility] Comment on above: Order Comment: Speci men Type: BLOOD SPECIMEN [facility] Address: [address] [place] [address] Performed By: #### 2 4321-2 #### [facility] CLIA [id number] [address] Ketones Ql (U) 3+ Abnormal Negative [facility] Comment on above: Order Comment: Speci men Type: BLOOD SPECIMEN [facility] Address: [address] [place] [address] Performed By: #### 2 4321-2 #### [facility] CLIA [id number] [address] Leukocyte esterase Test strip Ql (U) Negative Normal Negative [facility] Comment on above: Order Comment: Speci men Type: BLOOD SPECIMEN [facility] Address: [address] [address] Performed By: #### 2 4321-2 #### [facility] CLIA [id number] [address] Nitrite Ql (U) Negative Normal Negative [facility] Comment on above: Order Comment: Speci men Type: BLOOD SPECIMEN [facility] Address: [address] [address] Performed By: #### 2 4321-2 #### [facility] CLIA [id number] [address] [place] pH (U) 6.0 [pH] Normal 5.0-8.0 [facility] Comment on above: Order Comment: Speci men Type: BLOOD SPECIMEN [facility] Address: [address] [place] [address] Performed By: #### 2 4321-2 #### [facility] CLIA [id number] [address] STATES [facility] Protein (U) [Mass/Vol] Normal [facility] Comment on above: Order Comment: Speci men Type: BLOOD SPECIMEN [facility] Address: [address] [place] [address] Result Comment: Visi ble blood causes falsely elevated results for analyte Protein. Due to this limitation, Protein will not be reported for patients whose urine contains visible blood. Performed By: #### 2 4321-2 #### [facility] CLIA [id number] [address] [place] RBC LM.HPF (Urine sed) [#/Area] 0-3 /HPF Normal 0-3 /HPF [facility] Comment on above: Order Comment: Speci men Type: BLOOD SPECIMEN [facility] Address: [address] [place] [address] Performed By: #### 2 4321-2 #### [facility] CLIA [id number] [address] [place] Specific gravity (U) [Rel density] 1.010 Normal 1.005-1.030 [facility] Comment on above: Order Comment: Speci men Type: BLOOD SPECIMEN [facility] Address: [address] [place] [address] Performed By: #### 2 4321-2 #### [facility] CLIA [id number] [address] Urobilinogen Ql (U) 0.2 EU/dL Normal 0.2-1.0 EU/dL [facility] Comment on above: Order Comment: Speci men Type: BLOOD SPECIMEN [facility] Address: [address] [place] [address] Performed By: #### 2 4321-2 #### [facility] CLIA [id number] 1000 [place] [address] [place] WBC LM.HPF (Urine sed) [#/Area] 0-5 /HPF Normal 0-5 /HPF [facility] Comment on above: Order Comment: Speci men Type: BLOOD SPECIMEN [facility] Address: [address] [place] [address] Performed By: #### 2 4321-2 #### [facility] CLIA [id number] 1000 [place] [address] [place] XR CHEST 1V FRONTAL PORTon 0 10-26-2021 XR CHEST 1V FRONTAL PORT * * *Final Report* * * DATE OF EXAM: Oct 25 2021 10:20PM MDX 5376 - XR CHEST 1V FRONTAL PORT / PROCEDURE REASON: Fatigue and malaise * * * * Physician Interpretation * * * * XR CHEST 1V FRONTAL PORT Technique: XR CHEST 1V FRONTAL PORT Comparison: 07/22/2020 Clinical history: Fatigue and malaise DISCUSSION: Lines and Tubes: None. Heart/mediastinum: Stable appearance. Tortuous thoracic aorta. Lungs/pleura: No consolidation or edema. No effusion or pneumothorax. Other: No acute findings. IMPRESSION: No acute abnormality Bisque Placer: HUNG Transcribe Date/Time: Oct 25 2021 10:28P Dictated by : FAWAD PERRY MD This examination was interpreted and the report reviewed and electronically signed by: FAWAD PERRY MD on Oct 25 2021 10:30PM EST [id number] [facility] ED NOTEon 10-25-2021 ED NOTE HNO ID: [id number] Author: Axel Smith RN Service: ? Author Type: Registered Nurse Type: ED Notes Filed: 10/25/2021 9:31 PM Note Text: Patient presents to the EMS with c/o weakness x 3 days. Patient states he threw up 3 days ago. Patient denies chest pain. States he had shortness of breath on the way here. [facility] ED PROV NOTEon 10-25-2021 ED PROV NOTE HNO ID: [id number] Author: Yosef Grider MD Service: ? Author Type: Physician Type: ED Provider Notes Filed: 10/26/2021 1:44 AM Note Text: ED Provider Note Patient Name: Lino Wheeler : 1935 SERVICE DATE: 10/25/21 History Patient presents with: Weakness 86-year-old male, with a history of diabetes not currently on medication, hypertension, hyperlipidemia, remote history of prostate CA, presents by squad from home for generalized weakness. He states he has not felt well for 4 days. He had one episode of vomiting 3 days ago. He has not had an appetite. No other specific complaints such as fevers chills diarrhea abdominal pain cough congestion. On arrival to the ED his glucose read high. He states a known history of diabetes however has not been on Metformin for several years as his PCP told him he does not have diabetes. History provided by: Patient and spouse PAST MEDICAL HISTORY Diagnosis Date - Chronic pain - Diabetes (HCC) - Epilepsy (HCC) sz approx 20 years ago - History of gout - Hypertension - Mixed hyperlipidemia - Prostate cancer (HCC) s/p seed therapy PAST SURGICAL HISTORY Procedure Laterality Date - BACK SURGERY HX 4 back surgeries - PAST SURGICAL HISTORY OF testicular surgery FAMILY HISTORY Problem Relation Age of Onset - other (SBO) Mother - Tuberculosis Father Social History Tobacco Use - Smoking status: Never Smoker - Smokeless tobacco: Never Used Substance and Sexual Activity - Alcohol use: Not Currently Comment: hasn't drank for 35 years, was a heavy drinker - Drug use: Never - Sexual activity: Not on file ALLERGIES Allergen Reactions - Dilaudid [Hydromorp* Mental Status Change - Penicillin Unknown - Toradol [Ketorolac] Itching Review of Systems Constitutional: Positive for appetite change and fatigue. Negative for chills and fever. HENT: Negative. Eyes: Negative for photophobia and visual disturbance. Respiratory: Negative for cough and shortness of breath. Cardiovascular: Negative for chest pain. Gastrointestinal: Positive for nausea and vomiting (3 days ago x 1 episode). Negative for abdominal pain, constipation and diarrhea. Genitourinary: Positive for difficulty urinating (baseline from prostate CA). Negative for dysuria. Musculoskeletal: Negative for back pain and myalgias. Skin: Negative for rash and wound. Neurological: Positive for weakness. Negative for dizziness, light-headedness, numbness and headaches. Hematological: Negative. Psychiatric/Behavioral: Negative. Physical Exam Vitals [10/25/212123] BP Pulse Temp Temp src Resp SpO2 Weight Height -- 76 36.7 ?C (98 ?F) Oral 18 96 % 77.5 kg (170 lb 12.8 oz) -- Physical Exam Vitals and nursing note reviewed. Constitutional: General: He is not in acute distress. Appearance: He is not ill-appearing or toxic-appearing. Comments: Pleasant elderly male in NAD HENT: Head: Normocephalic and atraumatic. Nose: Nose normal. Mouth/Throat: Mouth: Mucous membranes are moist. Pharynx: Oropharynx is clear. 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 Pulmonary: Effort: Pulmonary effort is normal. No respiratory distress. Breath sounds: Normal breath sounds. No wheezing. Abdominal: Palpations: Abdomen is soft. Tenderness: There is no abdominal tenderness. There is no guarding. Musculoskeletal: General: Normal range of motion. Cervical back: Normal range of motion and neck supple. No rigidity. Right lower leg: No edema. Left lower leg: No edema. Skin: General: Skin is warm. Neurological: General: No focal deficit present. Mental Status: He is alert and oriented to person, place, and time. Cranial Nerves: No cranial nerve deficit. Comments: No focal deficits Psychiatric: Mood and Affect: Mood normal. Diagnostic Testing ED Labs Ordered and Reviewed COMP METABOLIC PANEL - Abnormal; Notable for the following components: Result Value Ref Range Albumin 3.8 (*) 3.9 - 4.9 g/dL Alkaline Phosphatase 119 (*) 38 - 113 U/L AST 43 (*) 14 - 40 U/L Glucose 622 (*) 74 - 99 mg/dL Sodium 126 (*) 136 - 144 mmol/L Chloride 87 (*) 97 - 105 mmol/L CO2 21 (*) 22 - 30 mmol/L All other components within normal limits URINALYSIS, REFLEX MICROSCOPIC - Abnormal; Notable for the following components: Glucose, Urine 3+ (*) Negative Ketones, Urine 3+ (*) Negative Hemoglobin/Blood,Ur 1+ (*) Negative All other components within normal limits KETONES/ACETONE/BHB - Abnormal; Notable for the following components: B-Hydroxybutyrate >4.50 (*) <0.28 mmol/L All other components within normal limits VENOUS BLOOD GASES - Abnormal; Notable for the following components: pO2, Venous 31 (*) 35 - 45 mmHg Base Deficit, Venous -4 (*) -2 - 0 mmol/L Bicarbonate, Venous 22 (*) 24 - 28 mmol/L Oxyhemoglo (more content not included)... Normal [facility] MRI Spine Lumbar w/o Contras ton 01-30-2021 MRI Spine Lumbar w/o Contrast Patient Name: LINO WHEELER [facility] ACCESSION EXAM DATE/TIME PROCEDURE ORDERING PROVIDER [id number] 01/30/2021 14:43 EDT MRI Spine Lumbar w/o [place] AGUILAR MICHAEL Contrast CPT code 78638 Reason For Exam (MRI Spine Lumbar w/o Contrast) IVDD Report MRI LUMBAR SPINE: CLINICAL INDICATION: Lumbar spine pain with multiple prior surgeries TECHNIQUE: Sagittal and transaxial T1 and fast T2-weighted sequences were performed through the lumbar spine, including a sagittal STIR sequence. COMPARISON: 09/29/2018 FINDINGS: Osseous structures/intervertebral discs: Vertebral body heights are maintained. No significant listhesis.. Marrow signal appears somewhat heterogeneous and hyperintense, nonspecific but similar to prior studies. Leftward scoliotic curvature centered at the approximate L4 level. Multilevel degenerative disc disease most pronounced at L2-L3 particularly on the left where there are prominent reactive endplate changes which appear progressed. There is mild retrolisthesis of L2 over L3 and L1 over L2. Mild degenerative changes in the sacroiliac joints. Spinal canal: The conus and cauda equina are normal in signal and position. There is some degree of developmental spinal canal narrowing suspected. Paraspinal soft tissues/additional findings: Bilateral renal cysts. Post surgical changes in the paraspinal soft tissues at the L3-L4 level. Level by level analysis: T12-L1: No significant disc herniation, spinal stenosis, or foraminal narrowing. L1-L2: Disc osteophyte complex asymmetrically greater on the left with severe narrowing of the left lateral recess and mild to moderate left foraminal narrowing. Superimposed central disc protrusion associated with a small annular tear. Degenerative ligamentous and facet hypertrophy without significant right foraminal narrowing. L2-L3: Broad-based disc osteophyte complex asymmetrically greater on Magnetic Resonance Imaging Report the left effaces the right and left lateral recess and contributes to moderate to severe spinal stenosis. Degenerative ligamentous and facet hypertrophy with severe right and mild left foraminal narrowing. Facet joint effusions and mild facet edema with edema in the paraspinal soft tissues likely more so on the right L3-L4: Postsurgical changes from prior laminectomy. Broad-based disc osteophyte complex asymmetrically greater on the right contributes to severe right foraminal narrowing with severe narrowing of the right lateral recess with abutment of the traversing right L4 nerve root, axial sequence 900 image 14. Contribution from degenerative ligamentous and facet hypertrophy. Tiny synovial cyst posteriorly on the left. L4-L5: Postsurgical changes from prior laminectomy. Right parasagittal/foraminal osteophytic ridging contributes to moderate to severe right foraminal narrowing. Superimposed central disc protrusion indents the ventral thecal sac and possibly abuts the traversing left L5 nerve root. Degenerative ligamentous and facet hypertrophy with mild left foraminal narrowing. L5-S1: Osteophytic ridging with mild bilateral foraminal narrowing. Degenerative ligamentous and facet hypertrophy without significant spinal stenosis. IMPRESSION: 1. Multilevel degenerative spondylosis leading to varying degrees of spinal stenosis and foraminal narrowing, overall likely similar to prior study. Please see level by level analysis. 2. At L3-L4 there appears to be abutment of the traversing right L4 nerve root with severe right foraminal narrowing and severe narrowing of the right lateral recess. 3. At L2-L3 there is moderate to severe spinal stenosis with severe right and mild left foraminal narrowing. Prominent degenerative facet hypertrophy with facet joint effusions, edema, and edema in the paraspinal soft tissues. 4. Degenerative disc disease at L2-L3 with prominent reactive endplate changes on the left likely associated with scoliotic curvature, progressed. 5. Additional findings as above. Report Dictated on Final Dictated: 02/02/2021 12:47 pm Dictating Physician: MD RODRIGUEZ VLADIMIR Signed Date and Time: 02/02/2021 1:06 pm Signed by: MD RODRIGUEZ VLADIMIR Transcribed Date and Time: 02/02/2021 12:47 [facility] PSA screeningOrdered By: Ziyad Aguilar on 11-21-2020 Test Performed by [facility], [address] , [place], [place] [address] [facility] Work Phone: Prostate Specific Ag Screeno n 11-21-2020 Prostate Specific Ag Screen 0.162 ng/mL Normal < 4.[address] [facility] Comment on above: Result Comment: Test ing performed on the Histogen 5600 using an immunometric methodology. Results obtained by different methods should not be used interchangeably. Performed By: #### P SA3S #### [facility] [address] [place] [address] Vital Signs Date Time Vital Sign Value Performing Clinician Facility 11-28-2024 18:17-0400 Body temperature 97.7 [degF] Saulo Schultz MD Work Phone: [facility] 11-28-2024 18:17-0400 Diastolic blood pressure 63 mm[Hg] Saulo Schultz MD Work Phone: [facility] 11-28-2024 18:17-0400 Heart rate 83 /min Saulo Schultz MD Work Phone: [facility] 11-28-2024 18:17-0400 Respiratory rate 17 /min Saulo Schultz MD Work Phone: [facility] 11-28-2024 18:17-0400 SaO2% (BldA) [Mass fraction] 92 % Saulo Schultz MD Work Phone: [facility] 11-28-2024 18:17-0400 Systolic blood pressure 112 mm[Hg] Saulo Schultz MD Work Phone: [facility] 11-28-2024 05:04-0400 Body mass index (BMI) [Ratio] 26.5 kg/m2 Saulo Schultz MD Work Phone: [facility] 11-28-2024 05:04-0400 Body weight 81.2 kg Saulo Schultz MD Work Phone: [facility] 11-26-2024 22:27-0400 Body height 175.01 cm Saulo Schultz MD Work Phone: [facility] 11-26-2024 22:18-0400 Body temperature 97.7 [degF] Saulo Schultz MD Work Phone: [facility] 11-26-2024 22:18-0400 Diastolic blood pressure 11 mm[Hg] Saulo Schultz MD Work Phone: [facility] 11-26-2024 22:18-0400 Heart rate 83 /min Saulo Schultz MD Work Phone: [facility] 11-26-2024 22:18-0400 Respiratory rate 16 /min Saulo Schultz MD Work Phone: [facility] 11-26-2024 22:18-0400 SaO2% (BldA) [Mass fraction] 93 % Saulo Schultz MD Work Phone: [facility] 11-26-2024 22:18-0400 Systolic blood pressure 134 mm[Hg] Saulo Schultz MD Work Phone: [facility] 11-26-2024 13:31-0400 Body height 175.26 cm Saulo Schultz MD Work Phone: [facility] 11-09-2024 12:47-0400 Body temperature 98.7 [degF] Saulo Schultz MD Work Phone: [facility] 11-09-2024 12:47-0400 Diastolic blood pressure 86 mm[Hg] Saulo Schultz MD Work Phone: [facility] 11-09-2024 12:47-0400 Heart rate 68 /min Saulo Schultz MD Work Phone: [facility] 11-09-2024 12:47-0400 Respiratory rate 18 /min Saulo Schultz MD Work Phone: [facility] 11-09-2024 12:47-0400 SaO2% (BldA) [Mass fraction] 98 % Saulo Schultz MD Work Phone: [facility] 11-09-2024 12:47-0400 Systolic blood pressure 129 mm[Hg] Saulo Schultz MD Work Phone: [facility] 11-03-2024 06:31-0400 Body mass index (BMI) [Ratio] 27.6 kg/m2 Saulo Schultz MD Work Phone: [facility] 11-03-2024 06:31-0400 Body weight 85 kg Saulo Schultz MD Work Phone: [facility] 10-30-2024 12:18-0400 Diastolic blood pressure 110 mm[Hg] Saulo Schultz MD Work Phone: [facility] 10-30-2024 12:18-0400 Heart rate 79 /min Saulo Schultz MD Work Phone: [facility] 10-30-2024 12:18-0400 Respiratory rate 16 /min Saulo Schultz MD Work Phone: [facility] 10-30-2024 12:18-0400 SaO2% (BldA) [Mass fraction] 95 % Saulo Schultz MD Work Phone: [facility] 10-30-2024 12:18-0400 Systolic blood pressure 122 mm[Hg] Saulo Schultz MD Work Phone: [facility] 10-30-2024 09:34-0400 Body height 175.26 cm Saulo Schultz MD Work Phone: [facility] 10-30-2024 09:34-0400 Body mass index (BMI) [Ratio] 27.8 kg/m2 Saulo Schultz MD Work Phone: [facility] 10-30-2024 09:34-0400 Body temperature 98 [degF] Saulo Schultz MD Work Phone: [facility] 10-30-2024 09:34-0400 Body weight 85.4 kg Saulo Schultz MD Work Phone: [facility] 10-18-2024 15:54-0400 Body temperature 98.4 [degF] Saulo Schultz MD Work Phone: [facility] 10-18-2024 15:54-0400 Diastolic blood pressure 69 mm[Hg] Saulo Schultz MD Work Phone: [facility] 10-18-2024 15:54-0400 Heart rate 110 /min Saulo Schultz MD Work Phone: [facility] 10-18-2024 15:54-0400 Respiratory rate 18 /min Saulo Schultz MD Work Phone: [facility] 10-18-2024 15:54-0400 SaO2% (BldA) [Mass fraction] 92 % Saulo Schultz MD Work Phone: [facility] 10-18-2024 15:54-0400 Systolic blood pressure 124 mm[Hg] Saulo Schultz MD Work Phone: [facility] 10-16-2024 15:43-0400 Body height 175.26 cm Saulo Schultz MD Work Phone: [facility] 10-16-2024 15:43-0400 Body weight 86.3 kg Saulo Schultz MD Work Phone: [facility] 10-15-2024 19:57-0400 Body mass index (BMI) [Ratio] 28 kg/m2 Saulo Schultz MD Work Phone: [facility] 10-15-2024 18:56-0400 Diastolic blood pressure 77 mm[Hg] Saulo Schultz MD Work Phone: [facility] 10-15-2024 18:56-0400 Systolic blood pressure 154 mm[Hg] Saulo Schultz MD Work Phone: [facility] 10-15-2024 17:00-0400 Heart rate 71 /min Saulo Schultz MD Work Phone: [facility] 10-15-2024 17:00-0400 Respiratory rate 19 /min Saulo Schultz MD Work Phone: [facility] 10-15-2024 17:00-0400 SaO2% (BldA) [Mass fraction] 95 % Saulo Schultz MD Work Phone: [facility] 10-15-2024 14:55-0400 Body temperature 98.3 [degF] Saulo Schultz MD Work Phone: [facility] 10-15-2024 11:14-0400 Body height 175.26 cm Saulo Schultz MD Work Phone: [facility] 10-15-2024 11:14-0400 Body mass index (BMI) [Ratio] 29 kg/m2 Saulo Schultz MD Work Phone: [facility] 10-15-2024 11:14-0400 Body weight 89.2 kg Saulo Schultz MD Work Phone: [facility] 03-15-2024 10:38-0400 Diastolic blood pressure 69 mm[Hg] Cesar Maya CONCRETE POINTER.WINDOWS TECHNICAL SPECIALIST Work Phone: [facility] 03-15-2024 10:38-0400 Heart rate 84 /min Cesar Maya CONCRETE POINTER.WINDOWS TECHNICAL SPECIALIST Work Phone: [facility] 03-15-2024 10:38-0400 Systolic blood pressure 119 mm[Hg] Cesar Maya CONCRETE POINTER.WINDOWS TECHNICAL SPECIALIST Work Phone: [facility] 07-26-2022 11:06-0500 Body temperature 99.19 [degF] Keyla Schultz MD Work Phone: [facility] 07-26-2022 11:06-0500 Diastolic blood pressure 62 mm[Hg] Keyla Schultz MD Work Phone: [facility] 07-26-2022 11:06-0500 Heart rate 79 /min Keyla Schultz MD Work Phone: [facility] 07-26-2022 11:06-0500 SaO2% (BldA) [Mass fraction] 96 % Keyla Schultz MD Work Phone: [facility] 07-26-2022 11:06-0500 Systolic blood pressure 103 mm[Hg] Keyla Schultz MD Work Phone: [facility] 03-16-2022 10:16-0400 Body weight 78.93 kg Vu Mcelroy MD Work Phone: [facility] 03-16-2022 10:16-0400 Diastolic blood pressure 63 mm[Hg] Vu Mcelroy MD Work Phone: [facility] 03-16-2022 10:16-0400 Heart rate 75 /min Vu Mcelroy MD Work Phone: [facility] 03-16-2022 10:16-0400 SaO2% (BldA) [Mass fraction] 100 % Vu Mcelroy MD Work Phone: [facility] 03-16-2022 10:16-0400 Systolic blood pressure 117 mm[Hg] Vu Mcelroy MD Work Phone: [facility] 01-04-2022 11:47-0400 Body height 175.[address] [facility] Work Phone: 01-04-2022 11:47-0400 Body mass index (BMI) [Ratio] 25.9 kg/m2 [facility] Work Phone: 01-04-2022 11:47-0400 Body temperature 98.2 [degF] [facility] Work Phone: 01-04-2022 11:47-0400 Body weight 79.[address] [facility] Work Phone: 01-04-2022 11:47-0400 Diastolic blood pressure 82 mm[Hg] [facility] Work Phone: 01-04-2022 11:47-0400 Heart rate 97 /min [facility] Work Phone: 01-04-2022 11:47-0400 Respiratory rate 18 /min [facility] Work Phone: 01-04-2022 11:47-0400 SaO2% (BldA) [Mass fraction] 93 % [facility] Work Phone: 01-04-2022 11:47-0400 Systolic blood pressure 131 mm[Hg] [facility] Work Phone: 12-23-2021 14:00-0400 Diastolic blood pressure 72 mm[Hg] Reny Vela RN Work Phone: [facility] 12-23-2021 14:00-0400 Heart rate 88 /min Reny Vela RN Work Phone: [facility] 12-23-2021 14:00-0400 Respiratory rate 18 /min Reny Vela RN Work Phone: [facility] 12-23-2021 14:00-0400 SaO2% (BldA) [Mass fraction] 96 % Reny Vela RN Work Phone: [facility] 12-23-2021 14:00-0400 Systolic blood pressure 140 mm[Hg] Reny Vela RN Work Phone: [facility] 12-21-2021 12:38-0400 Body temperature 97.7 [degF] Samantha Ventura PT Work Phone: [facility] 12-21-2021 12:38-0400 Diastolic blood pressure 78 mm[Hg] Samantha Ventura PT Work Phone: [facility] 12-21-2021 12:38-0400 Heart rate 76 /min Samantha Ventura PT Work Phone: [facility] 12-21-2021 12:38-0400 Respiratory rate 18 /min Samantha Ventura PT Work Phone: [facility] 12-21-2021 12:38-0400 SaO2% (BldA) [Mass fraction] 98 % Samantha Ventura PT Work Phone: [facility] 12-21-2021 12:38-0400 Systolic blood pressure 128 mm[Hg] Samantha Ventura PT Work Phone: [facility] 12-15-2021 13:20-0400 Diastolic blood pressure 76 mm[Hg] Kristine Fishman RN Work Phone: [facility] 12-15-2021 13:20-0400 Heart rate 72 /min Kristineolivier Fishman RN Work Phone: [facility] 12-15-2021 13:20-0400 Respiratory rate 16 /min Kristine Fishman RN Work Phone: [facility] 12-15-2021 13:20-0400 SaO2% (BldA) [Mass fraction] 95 % Kristineolivier Fishman RN Work Phone: [facility] 12-15-2021 13:20-0400 Systolic blood pressure 118 mm[Hg] Kristine Fishman RN Work Phone: [facility] 12-09-2021 15:17-0400 Body temperature 97.81 [degF] Mendoza Obregonert PRINTING PRESS OPERATOR APPRENTICE Work Phone: [facility] 12-09-2021 15:17-0400 Diastolic blood pressure 88 mm[Hg] Mendoza Blackert PRINTING PRESS OPERATOR APPRENTICE Work Phone: [facility] 12-09-2021 15:17-0400 Heart rate 72 /min Mendoza Blackert PRINTING PRESS OPERATOR APPRENTICE Work Phone: [facility] 12-09-2021 15:17-0400 Respiratory rate 18 /min Mendoza Blackert PRINTING PRESS OPERATOR APPRENTICE Work Phone: [facility] 12-09-2021 15:17-0400 SaO2% (BldA) [Mass fraction] 97 % Mendoza Blackert PRINTING PRESS OPERATOR APPRENTICE Work Phone: [facility] 12-09-2021 15:17-0400 Systolic blood pressure 144 mm[Hg] Mendoza Obregonert PRINTING PRESS OPERATOR APPRENTICE Work Phone: [facility] 12-08-2021 16:10-0400 Body temperature 98.6 [degF] Kristine Fishman RN Work Phone: [facility] 12-08-2021 16:10-0400 Diastolic blood pressure 78 mm[Hg] Kristine Fishman RN Work Phone: [facility] 12-08-2021 16:10-0400 Heart rate 76 /min Kristine Fishman RN Work Phone: [facility] 12-08-2021 16:10-0400 Respiratory rate 16 /min Kristine Fishman RN Work Phone: [facility] 12-08-2021 16:10-0400 SaO2% (BldA) [Mass fraction] 97 % Kristine Fishman RN Work Phone: [facility] 12-08-2021 16:10-0400 Systolic blood pressure 118 mm[Hg] Kristine Fishman RN Work Phone: [facility] 12-08-2021 11:10-0400 Body height 175.3 cm Keyla Schultz MD Work Phone: [facility] 12-08-2021 11:10-0400 Body weight 77.11 kg Keyla Schultz MD Work Phone: [facility] 12-08-2021 11:10-0400 Diastolic blood pressure 60 mm[Hg] Keyla Schultz MD Work Phone: [facility] 12-08-2021 11:10-0400 Heart rate 80 /min Keyla Schultz MD Work Phone: [facility] 12-08-2021 11:10-0400 SaO2% (BldA) [Mass fraction] 97 % Keyla Schultz MD Work Phone: [facility] 12-08-2021 11:10-0400 Systolic blood pressure 108 mm[Hg] Keyla Schultz MD Work Phone: [facility] 12-03-2021 15:41-0400 Body temperature 98.8 [degF] Luba Cruz RN Work Phone: [facility] 12-03-2021 15:41-0400 Diastolic blood pressure 66 mm[Hg] Luba Junos RN Work Phone: [facility] 12-03-2021 15:41-0400 Heart rate 81 /min Luba Junos RN Work Phone: [facility] 12-03-2021 15:41-0400 Respiratory rate 18 /min Luba Junos RN Work Phone: [facility] 12-03-2021 15:41-0400 SaO2% (BldA) [Mass fraction] 96 % Luba Junos RN Work Phone: [facility] 12-03-2021 15:41-0400 Systolic blood pressure 108 mm[Hg] Luba Erdos RN Work Phone: [facility] 12-03-2021 14:32-0400 Body temperature 97.7 [degF] Mendoza Blackert PRINTING PRESS OPERATOR APPRENTICE Work Phone: [facility] 12-03-2021 14:32-0400 Diastolic blood pressure 74 mm[Hg] Mendoza Blackert PRINTING PRESS OPERATOR APPRENTICE Work Phone: [facility] 12-03-2021 14:32-0400 Heart rate 70 /min Mendoza Blackert PRINTING PRESS OPERATOR APPRENTICE Work Phone: [facility] 12-03-2021 14:32-0400 Respiratory rate 17 /min Mendoza Blackert PRINTING PRESS OPERATOR APPRENTICE Work Phone: [facility] 12-03-2021 14:32-0400 SaO2% (BldA) [Mass fraction] 97 % Mendoza Blackert PRINTING PRESS OPERATOR APPRENTICE Work Phone: [facility] 12-03-2021 14:32-0400 Systolic blood pressure 110 mm[Hg] Mendoza Blackert PRINTING PRESS OPERATOR APPRENTICE Work Phone: [facility] 11-27-2021 11:25-0400 Diastolic blood pressure 76 mm[Hg] Samantha Ventura PT Work Phone: [facility] 11-27-2021 11:25-0400 Systolic blood pressure 138 mm[Hg] Samantha Ventura PT Work Phone: [facility] 11-27-2021 11:00-0400 Heart rate 83 /min Samantha Ventura PT Work Phone: [facility] 11-27-2021 11:00-0400 SaO2% (BldA) [Mass fraction] 96 % Samantha Ventura PT Work Phone: [facility] 11-27-2021 10:40-0400 Body temperature 98.4 [degF] Samantha Ventura PT Work Phone: [facility] 11-27-2021 10:40-0400 Respiratory rate 18 /min Samantha Ventura PT Work Phone: [facility] 11-24-2021 14:47-0400 Body weight 80.56 kg Vu Mcelroy MD Work Phone: [facility] 11-24-2021 14:47-0400 Diastolic blood pressure 57 mm[Hg] Vu Mcelroy MD Work Phone: [facility] 11-24-2021 14:47-0400 Heart rate 65 /min Vu Mcelroy MD Work Phone: [facility] 11-24-2021 14:47-0400 SaO2% (BldA) [Mass fraction] 95 % Vu Mcelroy MD Work Phone: [facility] 11-24-2021 14:47-0400 Systolic blood pressure 107 mm[Hg] Vu Mcelroy MD Work Phone: [facility] 11-24-2021 13:03-0400 Body temperature 98.6 [degF] Kristine Fishman RN Work Phone: [facility] 11-24-2021 13:03-0400 Diastolic blood pressure 68 mm[Hg] Kristine Fishman RN Work Phone: [facility] 11-24-2021 13:03-0400 Heart rate 80 /min Kristine Most RN Work Phone: [facility] 11-24-2021 13:03-0400 Respiratory rate 20 /min Kristine Most RN Work Phone: [facility] 11-24-2021 13:03-0400 SaO2% (BldA) [Mass fraction] 97 % Kristine Most RN Work Phone: [facility] 11-24-2021 13:03-0400 Systolic blood pressure 118 mm[Hg] Kristine Most RN Work Phone: [facility] 11-23-2021 16:30-0400 Diastolic blood pressure 80 mm[Hg] Mendoza Blackert PRINTING PRESS OPERATOR APPRENTICE Work Phone: [facility] 11-23-2021 16:30-0400 Heart rate 88 /min Mendoza Blackert PRINTING PRESS OPERATOR APPRENTICE Work Phone: [facility] 11-23-2021 16:30-0400 Respiratory rate 20 /min Mendoza Blackert PRINTING PRESS OPERATOR APPRENTICE Work Phone: [facility] 11-23-2021 16:30-0400 SaO2% (BldA) [Mass fraction] 97 % Mendoza Blackert PRINTING PRESS OPERATOR APPRENTICE Work Phone: [facility] 11-23-2021 16:30-0400 Systolic blood pressure 128 mm[Hg] Mendoza Blackert PRINTING PRESS OPERATOR APPRENTICE Work Phone: [facility] 11-23-2021 16:09-0400 Body temperature 97.81 [degF] Mendoza Blackert PRINTING PRESS OPERATOR APPRENTICE Work Phone: [facility] 11-18-2021 11:01-0400 Body temperature 97.7 [degF] Kristine Most RN Work Phone: [facility] 11-18-2021 11:01-0400 Diastolic blood pressure 82 mm[Hg] Kristine Most RN Work Phone: [facility] 11-18-2021 11:01-0400 Heart rate 72 /min Kristine Most RN Work Phone: [facility] 11-18-2021 11:01-0400 Respiratory rate 16 /min Kristine Fishman RN Work Phone: [facility] 11-18-2021 11:01-0400 SaO2% (BldA) [Mass fraction] 99 % Kristinevelma Fishman RN Work Phone: [facility] 11-18-2021 11:01-0400 Systolic blood pressure 128 mm[Hg] Kristine RN Work Phone: [facility] 11-17-2021 16:11-0400 Body temperature 97.39 [degF] Mendoza Obregonert PRINTING PRESS OPERATOR APPRENTICE Work Phone: [facility] 11-17-2021 16:11-0400 Diastolic blood pressure 70 mm[Hg] Mendoza Blackert PRINTING PRESS OPERATOR APPRENTICE Work Phone: [facility] 11-17-2021 16:11-0400 Heart rate 69 /min Mendoza Sabasert PRINTING PRESS OPERATOR APPRENTICE Work Phone: [facility] 11-17-2021 16:11-0400 Respiratory rate 18 /min Mendoza Sabasert PRINTING PRESS OPERATOR APPRENTICE Work Phone: [facility] 11-17-2021 16:11-0400 SaO2% (BldA) [Mass fraction] 97 % Mendoza Sabasert PRINTING PRESS OPERATOR APPRENTICE Work Phone: [facility] 11-17-2021 16:11-0400 Systolic blood pressure 130 mm[Hg] Mendoza Blackert PRINTING PRESS OPERATOR APPRENTICE Work Phone: [facility] 11-16-2021 12:27-0400 Diastolic blood pressure 60 mm[Hg] Sandy Bousfield OT/L Work Phone: [facility] 11-16-2021 12:27-0400 Heart rate 75 /min Sandy Bousfield OT/L Work Phone: [facility] 11-16-2021 12:27-0400 SaO2% (BldA) [Mass fraction] 95 % Sandy Bousfield OT/L Work Phone: [facility] 11-16-2021 12:27-0400 Systolic blood pressure 116 mm[Hg] Sandy Bousfield OT/L Work Phone: [facility] 11-16-2021 11:47-0400 Body temperature 97.5 [degF] Sandy Bergman OT/L Work Phone: [facility] 11-13-2021 13:05-0400 Body temperature 98.6 [degF] Kristine Fishman RN Work Phone: [facility] 11-13-2021 13:05-0400 Diastolic blood pressure 76 mm[Hg] Kristine RN Work Phone: [facility] 11-13-2021 13:05-0400 Heart rate 72 /min Kristine RN Work Phone: [facility] 11-13-2021 13:05-0400 Respiratory rate 20 /min Kristinevelma Fishman RN Work Phone: [facility] 11-13-2021 13:05-0400 SaO2% (BldA) [Mass fraction] 98 % Kristinevelma Fishman RN Work Phone: [facility] 11-13-2021 13:05-0400 Systolic blood pressure 122 mm[Hg] Kristinevelma Fishman RN Work Phone: [facility] 11-12-2021 15:05-0400 Body temperature 97.59 [degF] Mendoza Sabasert PRINTING PRESS OPERATOR APPRENTICE Work Phone: [facility] 11-12-2021 15:05-0400 Diastolic blood pressure 80 mm[Hg] Mendoza Obregonert PRINTING PRESS OPERATOR APPRENTICE Work Phone: [facility] 11-12-2021 15:05-0400 Heart rate 75 /min Mendoza Blackert PRINTING PRESS OPERATOR APPRENTICE Work Phone: [facility] 11-12-2021 15:05-0400 Respiratory rate 17 /min Mendoza Blackert PRINTING PRESS OPERATOR APPRENTICE Work Phone: [facility] 11-12-2021 15:05-0400 SaO2% (BldA) [Mass fraction] 98 % Mendoza Obregonert PRINTING PRESS OPERATOR APPRENTICE Work Phone: [facility] 11-12-2021 15:05-0400 Systolic blood pressure 130 mm[Hg] Mendoza Blackert PRINTING PRESS OPERATOR APPRENTICE Work Phone: [facility] 11-11-2021 12:40-0400 Diastolic blood pressure 85 mm[Hg] Audra White OT/L Work Phone: [facility] 11-11-2021 12:40-0400 Heart rate 76 /min Audra White OT/L Work Phone: [facility] 11-11-2021 12:40-0400 Respiratory rate 18 /min Audra White OT/L Work Phone: [facility] 11-11-2021 12:40-0400 SaO2% (BldA) [Mass fraction] 97 % Audra White OT/L Work Phone: [facility] 11-11-2021 12:40-0400 Systolic blood pressure 128 mm[Hg] Audra White OT/L Work Phone: [facility] 11-11-2021 12:12-0400 Body temperature 98.4 [degF] Audra White OT/L Work Phone: [facility] 11-10-2021 15:44-0400 Body temperature 97.9 [degF] Mendoza Blackert PRINTING PRESS OPERATOR APPRENTICE Work Phone: [facility] 11-10-2021 15:44-0400 Diastolic blood pressure 90 mm[Hg] Mendoza Blackert PRINTING PRESS OPERATOR APPRENTICE Work Phone: [facility] 11-10-2021 15:44-0400 Heart rate 79 /min Mendoza Blackert PRINTING PRESS OPERATOR APPRENTICE Work Phone: [facility] 11-10-2021 15:44-0400 Respiratory rate 18 /min Mendoza Blackert PRINTING PRESS OPERATOR APPRENTICE Work Phone: [facility] 11-10-2021 15:44-0400 SaO2% (BldA) [Mass fraction] 98 % Mendoza Blackert PRINTING PRESS OPERATOR APPRENTICE Work Phone: [facility] 11-10-2021 15:44-0400 Systolic blood pressure 140 mm[Hg] Mendoza Blackert PRINTING PRESS OPERATOR APPRENTICE Work Phone: [facility] 11-10-2021 09:44-0400 Body temperature 98.49 [degF] Kristine Most RN Work Phone: [facility] 11-10-2021 09:44-0400 Diastolic blood pressure 86 mm[Hg] Kristine Most RN Work Phone: [facility] 11-10-2021 09:44-0400 Heart rate 60 /min Kristine Most RN Work Phone: [facility] 11-10-2021 09:44-0400 Respiratory rate 16 /min Kristine Most RN Work Phone: [facility] 11-10-2021 09:44-0400 SaO2% (BldA) [Mass fraction] 97 % Kristine Most RN Work Phone: [facility] 11-10-2021 09:44-0400 Systolic blood pressure 138 mm[Hg] Kristine Most RN Work Phone: [facility] 11-04-2021 12:33-0400 Body temperature 98.1 [degF] Kristine Most RN Work Phone: [facility] 11-04-2021 12:33-0400 Diastolic blood pressure 78 mm[Hg] Kristine Most RN Work Phone: [facility] 11-04-2021 12:33-0400 Heart rate 80 /min Kristine Most RN Work Phone: [facility] 11-04-2021 12:33-0400 Respiratory rate 16 /min Kristine Most RN Work Phone: [facility] 11-04-2021 12:33-0400 SaO2% (BldA) [Mass fraction] 97 % Kristine Most RN Work Phone: [facility] 11-04-2021 12:33-0400 Systolic blood pressure 124 mm[Hg] Kristine Most RN Work Phone: [facility] 11-04-2021 11:47-0400 Diastolic blood pressure 82 mm[Hg] Audra White OT/L Work Phone: [facility] 11-04-2021 11:47-0400 Heart rate 76 /min Audra White OT/L Work Phone: [facility] 11-04-2021 11:47-0400 SaO2% (BldA) [Mass fraction] 99 % Audra White OT/L Work Phone: [facility] 11-04-2021 11:47-0400 Systolic blood pressure 140 mm[Hg] Audra White OT/L Work Phone: [facility] 11-04-2021 11:36-0400 Body temperature 98.2 [degF] Audra White OT/L Work Phone: [facility] 11-04-2021 11:36-0400 Respiratory rate 18 /min Audra White OT/L Work Phone: [facility] 11-02-2021 13:17-0400 Body temperature 97.39 [degF] Kristine Fishman RN Work Phone: [facility] 11-02-2021 13:17-0400 Diastolic blood pressure 78 mm[Hg] Kristine RN Work Phone: [facility] 11-02-2021 13:17-0400 Heart rate 80 /min Kristine Most RN Work Phone: [facility] 11-02-2021 13:17-0400 Respiratory rate 16 /min Kristine RN Work Phone: [facility] 11-02-2021 13:17-0400 SaO2% (BldA) [Mass fraction] 96 % Kristine Most RN Work Phone: [facility] 11-02-2021 13:17-0400 Systolic blood pressure 128 mm[Hg] Kristine Most RN Work Phone: [facility] 10-31-2021 14:19-0400 Diastolic blood pressure 72 mm[Hg] Sandy Bergman OT/L Work Phone: [facility] 10-31-2021 14:19-0400 Heart rate 95 /min Sandy Bousfield OT/L Work Phone: [facility] 10-31-2021 14:19-0400 SaO2% (BldA) [Mass fraction] 95 % Sandy Bousfield OT/L Work Phone: [facility] 10-31-2021 14:19-0400 Systolic blood pressure 114 mm[Hg] Sandy Bousfield OT/L Work Phone: [facility] 10-31-2021 13:27-0400 Body temperature 97.59 [degF] Sandy Bousfield OT/L Work Phone: [facility] 10-30-2021 13:58-0400 Body height 172.7 cm Delia Lira RN Work Phone: [facility] 10-30-2021 13:58-0400 Body temperature 97.5 [degF] Delia Lira RN Work Phone: [facility] 10-30-2021 13:58-0400 Body weight 77.11 kg Delia Lira RN Work Phone: [facility] 10-30-2021 13:58-0400 Diastolic blood pressure 64 mm[Hg] Delia Lira RN Work Phone: [facility] 10-30-2021 13:58-0400 Heart rate 68 /min Delia Lira RN Work Phone: [facility] 10-30-2021 13:58-0400 Respiratory rate 18 /min Delia Lira RN Work Phone: [facility] 10-30-2021 13:58-0400 SaO2% (BldA) [Mass fraction] 96 % Delia Lira RN Work Phone: [facility] 10-30-2021 13:58-0400 Systolic blood pressure 122 mm[Hg] Delia Lira RN Work Phone: [facility] Encounters Encounter Date Encounter Type Care Provider Facility Start: 01-15-2025 End: 01-15-2025 Refill Cesar Murray APRN.CNP Work Phone: [facility] Comment on above: Refill Request Start: 12-03-2024 End: 12-03-2024 Telephone encounter Keyla Schultz MD Work Phone: [facility] Comment on above: Orders ([facility] services) Received Outside Med ical Records ([facility] discharge summary) Orders ([facility]) Start: 11-28-2024 Non-patient / Non-visit Dr. Yelena Pierce [facility]erged with [facility] Work Phone: Start: 11-27-2024 Non-patient / Non-visit Dr. Yelena Pierce [facility]erg[facility] with [facility] Work Phone: Start: 11-27-2024 End: 11-27-2024 Telephone encounter Keyla Schultz MD Work Phone: [facility] Comment on above: Received Outside Med ical Records ([facility] ED) Start: 11-26-2024 End: 11-28-2024 ambulatory Isaiah Gómez Facility:[facility] Start: 11-26-2024 End: 11-28-2024 Evaluation and management of inpatient Dr. Isaiah Gómez DO -Medical Surgical 3 Work Phone: Start: 11-26-2024 End: 11-28-2024 observation encounter Saulo Schultz MD Work Phone: [facility] Work Phone: Start: 11-26-2024 End: 11-26-2024 Telephone encounter Keyla Schultz MD Work Phone: [facility] Start: 11-20-2024 End: 11-20-2024 Telephone encounter Keyla Schultz MD Work Phone: [facility] Comment on above: Multiple Concerns Start: 11-14-2024 End: 11-14-2024 Telephone encounter Keyla Schultz MD Work Phone: Family Practice Comment on above: Orders ([facility]) Start: 11-12-2024 End: 11-13-2024 Telephone encounter Keyla Schultz MD Work Phone: Family Practice Comment on above: Medication question Patient Update ([facility]) Home Care (Physical therapy/Social Work) Start: 11-09-2024 Non-patient / Non-visit Dr. Lu [facility] Work Phone: Start: 11-08-2024 Non-patient / Non-visit Dr. [facility] Work Phone: Start: 11-07-2024 Non-patient / Non-visit Dr. [facility] Work Phone: Start: 11-06-2024 Non-patient / Non-visit Dr. Lu [facility] Work Phone: Start: 11-05-2024 Non-patient / Non-visit Dr. Lu [facility] Work Phone: Start: 11-04-2024 Non-patient / Non-visit Dr. Stephanie Lagunas [facility] Work Phone: Start: 11-03-2024 Non-patient / Non-visit Dr. Stephanie Lagunas [facility] Work Phone: Start: 11-02-2024 End: 11-02-2024 ambulatory Saulo Schultz Facility:[facility] Start: 11-02-2024 End: 11-02-2024 Non-patient / Non-visit Dr. Binu Alexis MD -[facility] Work Phone: Start: 11-02-2024 Non-patient / Non-visit Dr. Stephanie Lag[facility]as [facility] Work Phone: Start: 11-01-2024 Non-patient / Non-visit Dr. Stephanie Lag[facility]as [facility] Work Phone: Start: 10-31-2024 End: 10-31-2024 Telephone encounter Keyla Schultz MD Work Phone: Family Practice Comment on above: Received Outside Med ical Records (Admission to [facility] 10/30/24) Orders ([facility] Start: 10-31-2024 Non-patient / Non-visit Dr. Stephanie Nelson MD [facility] Work Phone: Start: 10-30-2024 End: 10-30-2024 Telephone encounter Keyla Schultz MD Work Phone: Family Practice Comment on above: Received Outside Med ical Records ([facility] ED) Start: 10-30-2024 Non-patient / Non-visit Dr. Stephanie Nelson MD [facility] Work Phone: Start: 10-30-2024 End: 11-09-2024 ambulatory Mindi Nelson Facility:[facility] Start: 10-30-2024 End: 11-09-2024 Evaluation and management of inpatient Dr. Mindi Nelson MD -Medical Surgical 2 Work Phone: Start: 10-30-2024 observation encounter Saulo Schultz MD Work Phone: [facility] Work Phone: Start: 10-26-2024 End: 10-26-2024 Telephone encounter Keyla Schultz MD Work Phone: Family Practice Comment on above: Patient Update Start: 10-19-2024 End: 10-19-2024 Telephone encounter Keyla Schultz MD Work Phone: [facility] Practice Comment on above: Received Outside Med ical Records ([facility] ER Discharge and transfer [facility] to [facility] 10/18/2024) Start: 10-18-2024 Non-patient / Non-visit Dr. Sriram Stroud MD [facility] Work Phone: Start: 10-18-2024 End: 10-19-2024 Telephone encounter Keyla Schultz MD Work Phone: Family Practice Comment on above: Home Care Start: 10-17-2024 Non-patient / Non-visit Dr. Sriram Stroud MD -[facility] Work Phone: Start: 10-16-2024 End: 10-16-2024 Telephone encounter Keyla Schultz MD Work Phone: [facility] Start: 10-16-2024 Non-patient / Non-visit Dr. Sriram Stroud MD -[facility] Work Phone: Start: 10-15-2024 End: 10-18-2024 Evaluation and management of inpatient Dr. Gemma Nava MD -Medical Surgical 3 Work Phone: Start: 10-15-2024 End: 10-18-2024 observation encounter Saulo Schultz MD Work Phone: [facility] Work Phone: Start: 10-15-2024 End: 10-18-2024 ambulatory Gemma Nava Facility:[facility] Start: 10-15-2024 Non-patient / Non-visit Dr. Gemma pena MD -[facility] Work Phone: Start: 10-15-2024 Patient encounter status Soila Schultz MD Work Phone: [facility] Start: 10-03-2024 End: 10-03-2024 Telephone encounter Keyla Schultz MD Work Phone: [facility] Comment on above: Results (feet) Start: 09-27-2024 End: 10-09-2024 Follow-up encounter Cesar Murray CONCRETE POINTER.WINDOWS TECHNICAL SPECIALIST Work Phone: [facility] Start: 09-26-2024 End: 09-26-2024 ambulatory CESAR MURRAY Facility:[facility] Start: 09-26-2024 End: 09-26-2024 Subsequent hospital visit by physician [facility] Comment on above: Injury of left foot, initial encounter [S99.922A] Start: 09-25-2024 End: 09-25-2024 ambulatory Keyla Schultz MD Work Phone: [facility] Comment on above: Pain Start: 09-13-2024 End: 09-13-2024 Refill Keyla Schultz MD Work Phone: [facility] Comment on above: Refill Request Start: 09-12-2024 End: 09-13-2024 Refill Cesar Terri CONCRETE POINTER.WINDOWS TECHNICAL SPECIALIST Work Phone: [facility] Comment on above: Refill Request Start: 08-28-2024 End: 08-28-2024 Telephone encounter Keyla Schultz MD Work Phone: [facility] Comment on above: Forms Start: 06-26-2024 End: 06-26-2024 Refill Cesar Terri CONCRETE POINTER.WINDOWS TECHNICAL SPECIALIST Work Phone: [employer] Comment on above: Refill Request Start: 06-05-2024 End: 06-05-2024 Refill Cesar Terri CONCRETE POINTER.WINDOWS TECHNICAL SPECIALIST Work Phone: [facility] Comment on above: Refill Request Start: 05-18-2024 End: 05-18-2024 Refill Keyla Schultz MD Work Phone: [facility] Comment on above: Refill Request Start: 04-25-2024 End: 04-25-2024 Refill Cesar Terri CONCRETE POINTER.WINDOWS TECHNICAL SPECIALIST Work Phone: [facility] Comment on above: Refill Request Start: 04-11-2024 End: 04-13-2024 [facility] Start: 04-11-2024 End: 04-13-2024 Patient encounter procedure Sandy Drummond MA [facility] [place] Comment on above: Population Health Na vigation Outreach ([facility] /) Start: 03-26-2024 End: 03-26-2024 Telephone encounter Keyla Schultz MD Work Phone: [facility] Comment on above: rx refill; not on cu rrent med list Start: 03-22-2024 End: 03-22-2024 Refill Keyla Schultz MD Work Phone: [facility] Comment on above: Refill Request Start: 03-15-2024 End: 03-15-2024 ambulatory CESAR MURRAY Facility:[facility] Start: 03-15-2024 End: 03-15-2024 Office outpatient visit 25 minutes Cesar Manjarrez APRN.CNP Work Phone: [facility] Comment on above: Type 2 diabetes leandro itus without complication, with long-term current use of insulin (HCC) (Primary Dx); Nonintractable epilepsy without status epilepticus, unspecified epilepsy type (HCC); Hypertension, unspecified type; Chronic gout without tophus, unspecified cause, unspecified site; Chronic bilateral low back pain with bilateral sciatica; Hyperlipidemia, mixed; Generalized weakness; History of prostate cancer; Adjustment disorder with depressed mood Start: 03-15-2024 Patient encounter procedure CESAR MURRAY [facility] Start: 02-16-2024 ambulatory Elizabeth taylor RN [employer] Comment on above: ACM EMY RN ( Medication adherence review per request of payer ) Start: 02-03-2024 Telephone encounter Keyla Schultz MD Work Phone: [facility] Comment on above: Received Outside Med [employer] Records ([employer] Order for glucose test strips 02/02/2024) Start: 01-26-2024 ambulatory Elizabeth taylor RN [employer] Comment on above: ACM EMY RN ( Medication adherence and suspect condition review per request of payer ) Start: 01-13-2024 ambulatory Keyla coates MD Work Phone: [facility] Comment on above: Question; Results, L ab Start: 01-07-2024 Refill Lisbet Hutson APRN.CNP Work Phone: [facility] Comment on above: Refill Request Start: 11-03-2023 Telephone encounter Cesar anglin APRN.CNP Work Phone: [facility] Comment on above: Initial Consult ([facility] [id number]/) Start: 10-20-2023 Refill Cesar Manjarrez APRN.CNP Work Phone: [facility] Comment on above: Refill Request Start: 10-04-2023 Social Work Kadi Bryanctayo QUANTITATIVE EQUITY HEAD [facility] Comment on above: Needs assistance wit h community resources (Primary Dx) Results Start: 10-02-2023 Refill Keyla coates MD Work Phone: [facility] Comment on above: Refill Request Start: 09-27-2023 Refill Keyla coates MD Work Phone: [facility] Comment on above: Refill Request Start: 09-26-2023 Telephone encounter Keyla Schultz MD Work Phone: [facility] Comment on above: PT home care Start: 09-23-2023 Social Work Kadi Bryanctayo QUANTITATIVE EQUITY HEAD [facility] Comment on above: Needs assistance wit h community resources (Primary Dx) Start: 09-20-2023 Telephone encounter Keyla Schultz MD Work Phone: [facility] Comment on above: FYI-No Action Needed Start: 09-01-2023 Telephone encounter Hardik jones [facility] Comment on above: Home Care Patient Question (Re questing home health care help); Referral Request (Home health ) Start: 08-25-2023 Telephone encounter Keyla Schultz MD Work Phone: [facility] Start: 06-15-2023 End: 06-15-2023 ambulatory Keyla Schultz MD Work Phone: [facility] Comment on above: Chronic bilateral lo w back pain with bilateral sciatica (Primary Dx); Frequent falls; Type 2 diabetes mellitus without complication, with long-term current use of insulin (HCC); Prostate cancer (HCC); Hypertension, unspecified type; Nonintractable epilepsy without status epilepticus, unspecified epilepsy type (HCC); Hyperlipidemia, mixed Start: 06-15-2023 End: 06-15-2023 Telemedicine consultation with patient Keyla Schultz MD Work Phone: [facility] Start: 06-13-2023 ambulatory Keyla coates MD Work Phone: [facility] Comment on above: Medication Problem Start: 04-28-2023 Telephone encounter Keyla Schultz MD Work Phone: [facility] Start: 03-24-2023 Refill Keyla coates MD Work Phone: [facility] Comment on above: Refill Request Start: 02-21-2023 Telephone encounter Keyla Schultz MD Work Phone: [facility] Comment on above: Patient Question Start: 02-16-2023 Refill Keyla coates MD Work Phone: [facility] Comment on above: Refill Request Start: 01-28-2023 Telephone encounter Keyla Schultz MD Work Phone: [facility] Comment on above: Initial Consult ([facility] [id number] ) Start: 01-17-2023 Telephone encounter Keyla Schultz MD Work Phone: [facility] Comment on above: Received Outside [facility] Records; Results Start: 11-24-2022 Refill Keyla coates MD Work Phone: [facility] Comment on above: Refill Request Start: 08-13-2022 Telephone encounter Keyla Schultz MD Work Phone: [facility] Comment on above: Medication Request ( [facility] 08/13/2022 Generic Medication are free from mail order) Start: 07-27-2022 Telephone encounter Keyla Schultz MD Work Phone: [facility] Comment on above: Results Start: 07-26-2022 End: 07-26-2022 Patient encounter procedure Keyla Schultz MD Work Phone: [facility] Comment on above: Primary hypertension (Primary Dx); Chronic bilateral low back pain with bilateral sciatica; Type 2 diabetes mellitus without complication, with long-term current use of insulin (HCC); Hyperlipidemia, mixed; Prostate cancer (HCC); Nonintractable epilepsy without status epilepticus, unspecified epilepsy type (HCC); Acute pain of left shoulder; Chronic left shoulder pain; Left wrist pain Start: 07-06-2022 Refill Keyla coates MD Work Phone: [facility] Comment on above: Refill Request Start: 06-10-2022 Refill Cesar Manjarrez CONCRETE POINTER.WINDOWS TECHNICAL SPECIALIST Work Phone: [facility] Comment on above: Refill Request Start: 03-24-2022 Refill Keyla coates MD Work Phone: [facility] Comment on above: Refill Request Start: 03-16-2022 End: 03-16-2022 Patient encounter procedure Vu Mcelroy MD Work Phone: Endocrinology Comment on above: Controlled type 2 di abetes mellitus without complication, with long-term current use of insulin (HCC) (Primary Dx) Start: 03-10-2022 Telephone encounter Keyla Schultz MD Work Phone: [facility] Comment on above: Patient Question Start: 03-04-2022 Refill Keyla coates MD Work Phone: [facility] Comment on above: Refill Request Start: 01-04-2022 Telephone encounter Keyla Schultz MD Work Phone: [facility] Comment on above: Received Outside Med ical Records (ED summary [facility]) Start: 01-04-2022 End: 01-04-2022 Emergency department patient visit [facility]Emergency Department Start: 12-23-2021 End: 12-23-2021 Home visit Reny Vela RN Work Phone: [facility] Comment on above: SN AGENCY DC W VISIT Start: 12-23-2021 Telephone encounter Reny Vela RN Work Phone: [facility] Comment on above: Home Care (FYI disch arge) Start: 12-22-2021 Refill Vu Mcelroy MD Work Phone: Endocrinology Comment on above: Refill Request Start: 12-21-2021 End: 12-21-2021 Home visit Samantha Ventura PT Work Phone: [facility] Comment on above: PT DISC DC W VISIT TELEPHONE CONTACT Start: 12-17-2021 End: 12-17-2021 Home visit Mendoza Watts PRINTING PRESS OPERATOR APPRENTICE Work Phone: [facility] Comment on above: PRINTING PRESS OPERATOR APPRENTICE UNMADE VISIT Start: 12-15-2021 End: 12-15-2021 Home visit Kristine Fishman RN Work Phone: [facility] Comment on above: SN ROUTINE Start: 12-09-2021 End: 12-09-2021 Home visit Mendoza Watts PRINTING PRESS OPERATOR APPRENTICE Work Phone: [facility] Comment on above: PRINTING PRESS OPERATOR APPRENTICE ROUTINE Start: 12-08-2021 End: 12-08-2021 Home visit Kristine Fishman RN Work Phone: [facility] Comment on above: SN ROUTINE Start: 12-08-2021 End: 12-08-2021 Patient encounter procedure Keyla Schultz MD Work Phone: [facility] Comment on above: Type 2 diabetes leandro itus without complication, with long-term current use of insulin (HCC) (Primary Dx); DDD (degenerative disc disease), lumbar; Chronic bilateral low back pain with bilateral sciatica; Hyperlipidemia, mixed; History of seizures; Essential hypertension; Chronic gout without tophus, unspecified cause, unspecified site Start: 12-03-2021 End: 12-03-2021 Home visit Luba Cruz RN Work Phone: [facility] Comment on above: SN ROUTINE PRINTING PRESS OPERATOR APPRENTICE ROUTINE Start: 12-01-2021 Orders Only Vu Mcelroy MD Work Phone: Endocrinology Comment on above: Results Start: 11-27-2021 Telephone encounter Samantha Ventura PT Work Phone: [facility] Comment on above: Home Care (continued home PT ) Start: 11-27-2021 End: 11-27-2021 Home visit Samantha Ventura PT Work Phone: [facility] Comment on above: PT REASSESSMENT JOINT VISIT Start: 11-27-2021 End: 11-27-2021 Patient encounter procedure [facility] Start: 11-24-2021 End: 11-24-2021 Patient encounter procedure Vu Mcelroy MD Work Phone: Endocrinology Comment on above: DKA (diabetic ketoac idosis) ([facility]); Diabetes mellitus type 2 with ketoacidosis, uncontrolled ([facility]) Start: 11-24-2021 End: 11-24-2021 Home visit Kristine Fishman RN Work Phone: [facility] Comment on above: SN ROUTINE Start: 11-23-2021 End: 11-23-2021 Home visit Mendoza Watts PRINTING PRESS OPERATOR APPRENTICE Work Phone: [facility] Comment on above: PRINTING PRESS OPERATOR APPRENTICE ROUTINE Start: 11-19-2021 Telephone encounter Satish Garcia RN Work Phone: [facility] Comment on above: Home Care (home heal th aide services discontinued) Start: 11-19-2021 End: 11-19-2021 Home visit Satish Dillard RN Work Phone: [facility] Comment on above: CARE COORDINATION PRINTING PRESS OPERATOR APPRENTICE UNMADE VISIT Start: 11-18-2021 End: 11-18-2021 Home visit Kristine Fishman RN Work Phone: [facility] Comment on above: SN ROUTINE CARE COORDINATION Start: 11-17-2021 End: 11-17-2021 Home visit Mendoza Watts PRINTING PRESS OPERATOR APPRENTICE Work Phone: [facility] Comment on above: PRINTING PRESS OPERATOR APPRENTICE ROUTINE Start: 11-16-2021 End: 11-16-2021 Home visit Sandy Bergman OT/L Work Phone: [facility] Comment on above: OT DISC DC W VISIT Start: 11-13-2021 End: 11-13-2021 Home visit Kristine Fishman RN Work Phone: [facility] Comment on above: SN ROUTINE Start: 11-12-2021 End: 11-12-2021 Home visit Mendoza Watts PRINTING PRESS OPERATOR APPRENTICE Work Phone: [facility] Comment on above: PRINTING PRESS OPERATOR APPRENTICE ROUTINE Start: 11-11-2021 End: 11-11-2021 Home visit Audra Hammer OT/L Work Phone: [facility] Comment on above: OT ROUTINE Start: 11-10-2021 End: 11-10-2021 Home visit Kristine Fishman RN Work Phone: [facility] Comment on above: SN ROUTINE PRINTING PRESS OPERATOR APPRENTICE ROUTINE Start: 11-04-2021 End: 11-04-2021 Home visit Audra Hammer OT/L Work Phone: [facility] Comment on above: OT ROUTINE SN ROUTINE Start: 11-02-2021 ambulatory Shamika Watts RN ERICK SE COMPENSATION COORDINATOR Comment on above: Information Start: 11-02-2021 Telephone encounter Samantha Lorenzo PT Work Phone: [facility] Comment on above: Home Care (PT eval ) Start: 11-02-2021 End: 11-02-2021 Home visit Kristine Fishman RN Work Phone: [facility] Comment on above: SN ROUTINE Start: 10-31-2021 End: 10-31-2021 Home visit Sandy Bergman OT/L Work Phone: [facility] Comment on above: OT EVAL Start: 10-30-2021 End: 10-30-2021 Home visit Delia Lira RN Work Phone: [facility] Comment on above: SN SOC Start: 10-28-2021 Telephone encounter Stephanie Hill LPN Work Phone: [facility] Comment on above: Home Care (MD uriah mcqueen) Home Care (Confirmat ion Call) Start: 01-30-2021 End: 01-30-2021 Subsequent hospital visit by physician Juni Aguilar MD Work Phone: [facility] Comment on above: Postlaminectomy synd elsie, not elsewhere classified Start: 11-21-2020 End: 11-21-2020 Subsequent hospital visit by physician Juni Aguilar MD Work Phone: [facility] Procedures Date Procedure Procedure Detail Performing Clinician Start: 11-28-2024 Serum inorganic phos phate measurement Saulo Schultz MD Work Phone: Start: 11-26-2024 Urnls dip stick/tabl et reagent auto microscopy Saulo Schultz MD Work Phone: Start: 11-26-2024 X-ray of chest, PA a nd lateral views Saulo Schultz MD Work Phone: Start: 11-26-2024 CT of abdomen and pe lvis without contrast Saulo Schultz MD Work Phone: Start: 11-09-2024 Estimated creatinine clearance Saulo Schultz MD Work Phone: Start: 11-02-2024 CT angiography of ch est with contrast Saulo Schultz MD Work Phone: Start: 11-02-2024 D-dimer assay, quantitative Saulo Schultz MD Work Phone: Comment on above: D-Dimer ELEVATED (>0 .49): Additional studies and clinicalassessments are indicated to conclude diagnosis of:Deep Vein Thrombosis (DVT) or Pulmonary Embolism (PE)CRITICAL VALUE CALLED TO Caridad TRIPATHI11/02/24 1832 Keshia Song.RESULTS READ BACK BY URIEL. Start: 10-30-2024 Urnls dip stick/tabl et reagent auto microscopy Saulo Schultz MD Work Phone: Start: 10-30-2024 X-ray of lumbar spin e, two or three views Saulo Schultz MD Work Phone: Start: 10-16-2024 Estimated creatinine clearance Saulo Schultz MD Work Phone: Start: 03-15-2024 Hemoglobin A1c/Hemoglobin.total in Blood Cesar Manjarrez APRN.CNP Work Phone: Start: 03-16-2022 Hemoglobin A1c/Hemoglobin.total in Blood Vu Mcelroy MD Work Phone: Start: 11-21-2020 End: 11-21-2020 PSA screening Juni Aguilar MD Work Phone: Comment on above: Testing performed on the Histogen 5600 using an immunometric methodology. Results obtained by different methods should not be used interchangeably. Plan of Treatment Date Care Activity Detail Author Start: 03-14-2027 DTaP/Tdap/Td vaccine (2 - Td or Tdap) DTaP/Tdap/Td vaccine (2 - Td or Tdap) [facility] Work Phone: Start: 03-14-2027 DTaP/Tdap/Td vaccine (2 - Td) DTaP/Tdap/Td vaccine (2 - Td) [facility] Work Phone: Start: 03-14-2027 Urine microalbumin profile [facility] Start: 03-29-2025 Hemoglobin A1c measurement HbA1C [facility] Start: 03-18-2025 Influenza vaccination [facility] Start: 11-28-2024 Patient discharge [facility] Start: 11-27-2024 End: 11-28-2024 [facility] Start: 11-27-2024 Application of intermittent pneumatic compression device [facility] Start: 11-26-2024 Assessment of risk o f venous thromboembolism [facility] Start: 11-26-2024 Care regimes management [facility] Start: 11-26-2024 Incentive spirometry [facility] Start: 11-26-2024 Insertion of cathete r into peripheral vein [facility] Start: 11-26-2024 Measuring intake and output [facility] Start: 11-26-2024 Notification of physician [facility] Start: 11-26-2024 Oxygen therapy [facility] Start: 11-26-2024 Providing care accor ding to standard [facility] Start: 11-26-2024 Provision of activit y privileges [facility] Start: 11-26-2024 Referral to occupati onal therapist [facility] Start: 11-26-2024 Referral to service [facility] Start: 11-26-2024 End: 11-26-2024 [facility] Start: 11-26-2024 Following clinical pathway protocol [facility] Start: 11-26-2024 Magnesium measurement [facility] Start: 11-26-2024 Verification routine [facility] Start: 11-26-2024 Admission procedure [facility] Start: 11-26-2024 Hospital admission, emergency, from emergency room, medical nature [facility] Start: 11-26-2024 Urinalysis complete panel - Urine [facility] Start: 11-23-2024 End: 11-23-2024 Patient encounter procedure 11/23/2024 2:40 PM EDT Office Visit [facility] [address] [place], [place] [id number] Keyla Schultz MD [address] [place], [place] [id number] follow up [facility] Comment on above: follow up Start: 11-09-2024 Patient discharge [facility] Start: 11-09-2024 Referral to service [facility] Start: 10-31-2024 [facility] Start: 10-30-2024 Following clinical pathway protocol [facility] Start: 10-30-2024 Assessment of risk o f venous thromboembolism [facility] Start: 10-30-2024 Care regimes management [facility] Start: 10-30-2024 Fall prevention [facility] Start: 10-30-2024 Insertion of cathete r into peripheral vein [facility] Start: 10-30-2024 Notification of physician [facility] Start: 10-30-2024 Providing care accor ding to standard [facility] Start: 10-30-2024 Provision of activit y privileges [facility] Start: 10-30-2024 Referral to occupati onal therapist [facility] Start: 10-30-2024 Referral to service [facility] Start: 10-30-2024 End: 10-30-2024 [facility] Start: 10-30-2024 Hospital admission, emergency, from emergency room, medical nature [facility] Start: 10-30-2024 Admission procedure [facility] Start: 10-30-2024 [facility] Start: 10-26-2024 End: 10-26-2024 Patient encounter procedure 10/26/2024 11:20 AM EDT Office Visit [facility] [address] [place] [address] Keyla Schultz MD [address] [place] [address] hospital follow up [facility] Comment on above: hospital follow up Start: 10-18-2024 Patient discharge [facility] Start: 10-17-2024 Referral to service [facility] Start: 10-16-2024 [facility] Start: 10-15-2024 Following clinical pathway protocol [facility] Start: 10-15-2024 Assessment of risk o f venous thromboembolism [facility] Start: 10-15-2024 Care regimes management [facility] Start: 10-15-2024 Inhalation therapy procedure [facility] Start: 10-15-2024 Insertion of cathete r into peripheral vein [facility] Start: 10-15-2024 Notification of physician [facility] Start: 10-15-2024 Providing care accor ding to standard [facility] Start: 10-15-2024 Provision of activit y privileges [facility] Start: 10-15-2024 Referral to occupati onal therapist [facility] Start: 10-15-2024 Referral to service [facility] Start: 10-15-2024 End: 10-15-2024 [facility] Start: 10-15-2024 Hospital admission, emergency, from emergency room, medical nature [facility] Start: 10-15-2024 Verification routine [facility] Start: 10-15-2024 Admission procedure [facility] Start: 10-15-2024 [facility] Start: 10-15-2024 Patient referral to dietitian [facility] Start: 10-02-2024 Hepatitis B surface antibody level LDL Cholesterol [facility] Start: 09-17-2024 End: 09-17-2024 Patient encounter procedure 09/17/2024 1:00 PM EST Office Visit [facility] [address] [place] [address] Keyla Schultz MD [address] [place] [address] AWV/6 MO FU MODIFIER 25 Family Practice Comment on above: AWV/6 MO FU MODIFIER 25 Start: 09-15-2024 End: 12-15-2024 CBC panel - Blood by Automated count COMPLETE BLOOD COUNT Lab Routine Type 2 diabetes mellitus without complication, with long-term current use of insulin (HCC) Expected: 09/15/2024, Expires: 12/15/2024 [facility] Comment on above: Expected: 09/15/2024 , Expires: 12/15/2024 Start: 09-15-2024 End: 12-15-2024 Comprehensive metabolic 2000 panel - Serum or Plasma COMPREHENSIVE METABOLIC PANEL Lab Routine Type 2 diabetes mellitus without complication, with long-term current use of insulin (HCC) Expected: 09/15/2024, Expires: 12/15/2024 [facility] Comment on above: Expected: 09/15/2024 , Expires: 12/15/2024 Start: 09-15-2024 End: 12-15-2024 Hemoglobin A1c in Blood HEMOGLOBIN A1C Lab Routine Type 2 diabetes mellitus without complication, with long-term current use of insulin (HCC) Expected: 09/15/2024, Expires: 12/15/2024 [facility] Comment on above: Expected: 09/15/2024 , Expires: 12/15/2024 Start: 09-15-2024 End: 12-15-2024 levETIRAcetam [Mass/volume] in Serum or Plasma LEVETIRACETAM Lab Routine Nonintractable epilepsy without status epilepticus, unspecified epilepsy type (HCC) Expected: 09/15/2024, Expires: 12/15/2024 [facility] Comment on above: Expected: 09/15/2024 , Expires: 12/15/2024 Start: 09-15-2024 End: 12-15-2024 Lipid 1996 panel - Serum or Plasma LIPID PANEL BASIC Lab Routine Hyperlipidemia, mixed Expected: 09/15/2024, Expires: 12/15/2024 [facility] Comment on above: Expected: 09/15/2024 , Expires: 12/15/2024 Start: 09-15-2024 End: 12-15-2024 Microalbumin/Creatinine [Mass Ratio] in Urine ALBUMIN/CREATININE RATIO, URINE Lab Routine Type 2 diabetes mellitus without complication, with long-term current use of insulin (HCC) Expected: 09/15/2024, Expires: 12/15/2024 [facility] Work Phone: Comment on above: Expected: 09/15/2024 , Expires: 12/15/2024 Start: 09-15-2024 End: 12-15-2024 Prostate specific Ag [Mass/volume] in Serum or Plasma PROSTATE-SPECIFIC ANTIGEN DIAGNOSTIC Lab Routine History of prostate cancer Expected: 09/15/2024, Expires: 12/15/2024 [facility] Comment on above: Expected: 09/15/2024 , Expires: 12/15/2024 Start: 09-15-2024 End: 12-15-2024 Urate [Mass/volume] in Serum or Plasma URIC ACID Lab Routine Chronic gout without tophus, unspecified cause, unspecified site Expected: 09/15/2024, Expires: 12/15/2024 [facility] Comment on above: Expected: 09/15/2024 , Expires: 12/15/2024 Start: 09-14-2024 Hemoglobin A1c measurement HbA1C [facility] Start: 07-18-2024 Advance Directive Discussion Advance Directive Discussion [facility] Start: 07-18-2024 Medicare Advantage A nnual Wellness Visit Medicare Advantage Annual Wellness Visit [facility] Start: 04-04-2024 Hemoglobin A1c measurement HbA1C [facility] Start: 03-18-2024 Covid-19 Vaccine ( season) Covid-19 Vaccine ( season) [facility] Start: 03-18-2024 Covid-19 Vaccine ( season) Covid-19 Vaccine () [facility] Start: 03-18-2024 Influenza vaccination Influenza Vacc ine (#1) [facility] Start: 03-14-2024 End: 03-14-2024 Patient encounter procedure 03/14/2024 1:00 PM EDT Office Visit Family Practice [address] [place] [id number] Cesar Manjarrez, CONCRETE POINTER.WINDOWS TECHNICAL SPECIALIST [address] [place] [id number] medicare wellness [facility] Comment on above: medicare wellness Start: 02-24-2024 Hepatitis B surface antibody level LDL CHOLESTEROL [facility] Start: 09-28-2023 End: 12-28-2023 Urate [Mass/volume] in Serum or Plasma URIC ACID BLOOD Lab Routine Chronic gout without tophus, unspecified cause, unspecified site Expected: 09/28/2023, Expires: 12/28/2023 [facility] Work Phone: Comment on above: Expected: 09/28/2023 , Expires: 12/28/2023 Start: 08-26-2023 Hemoglobin A1c measurement HbA1C [facility] Start: 08-26-2023 Hemoglobin A1c/Hemoglobin.total in Blood HBA1C [facility] Start: 08-15-2023 Covid-19 Vaccine () Covid-19 Vaccine () [facility] Start: 07-18-2023 Advance Directive Discussion Advance Directive Discussion [facility] Start: 07-18-2023 Behavioral Health Screening Behavioral Health Screening [facility] Start: 07-18-2023 End: 10-17-2023 CBC panel - Blood by Automated count CBC Lab Routine Frequent falls Type 2 diabetes mellitus without complication, with long-term current use of insulin (HCC) Prostate cancer (HCC) Expected: 07/18/2023, Expires: 10/17/2023 [facility] Work Phone: Comment on above: Expected: 07/18/2023 , Expires: 10/17/2023 Start: 07-18-2023 End: 10-17-2023 Comprehensive metabolic 2000 panel - Serum or Plasma COMP METABOLIC PANEL Lab Routine Hypertension, unspecified type Expected: 07/18/2023, Expires: 10/17/2023 [facility] Work Phone: Comment on above: Expected: 07/18/2023 , Expires: 10/17/2023 Start: 07-18-2023 Depression Assessment Depression Ass essment [facility] Start: 07-18-2023 End: 10-17-2023 Hemoglobin A1c in Blood HGB A1C Lab Routine Type 2 diabetes mellitus without complication, with long-term current use of insulin (HCC) Hypertension, unspecified type Expected: 07/18/2023, Expires: 10/17/2023 [facility] Work Phone: Comment on above: Expected: 07/18/2023 , Expires: 10/17/2023 Start: 07-18-2023 End: 10-17-2023 levETIRAcetam [Mass/volume] in Serum or Plasma LEVETIRACETAM Lab Routine Nonintractable epilepsy without status epilepticus, unspecified epilepsy type (HCC) Expected: 07/18/2023, Expires: 10/17/2023 [facility] Work Phone: Comment on above: Expected: 07/18/2023 , Expires: 10/17/2023 Start: 07-18-2023 End: 10-17-2023 Lipid 1996 panel - Serum or Plasma LIPID PANEL BASIC Lab Routine Hyperlipidemia, mixed Expected: 07/18/2023, Expires: 10/17/2023 [facility] Work Phone: Comment on above: Expected: 07/18/2023 , Expires: 10/17/2023 Start: 07-18-2023 End: 10-17-2023 Prostate specific Ag [Mass/volume] in Serum or Plasma PSA/PROSTSPECAG DIAG Lab Routine Prostate cancer (HCC) Expected: 07/18/2023, Expires: 10/17/2023 [facility] Work Phone: Comment on above: Expected: 07/18/2023 , Expires: 10/17/2023 Start: 04-28-2023 End: 06-28-2023 Comprehensive metabolic 2000 panel - Serum or Plasma COMP METABOLIC PANEL Lab Routine Hypertension, unspecified type Type 2 diabetes mellitus without complication, with long-term current use of insulin (HCC) Expected: 04/28/2023, Expires: 06/28/2023 [facility] Work Phone: Comment on above: Expected: 04/28/2023 , Expires: 06/28/2023 Start: 04-28-2023 End: 06-28-2023 Hemoglobin A1c in Blood HGB A1C Lab Routine Type 2 diabetes mellitus without complication, with long-term current use of insulin (HCC) Expected: 04/28/2023, Expires: 06/28/2023 [facility] Work Phone: Comment on above: Expected: 04/28/2023 , Expires: 06/28/2023 Start: 04-28-2023 End: 06-28-2023 Lipid 1996 panel - Serum or Plasma LIPID PANEL BASIC Lab Routine Hyperlipidemia, mixed Expected: 04/28/2023, Expires: 06/28/2023 [facility] Work Phone: Comment on above: Expected: 04/28/2023 , Expires: 06/28/2023 Start: 03-18-2023 Influenza vaccination [facility] Start: 02-16-2023 End: 04-18-2023 Hemoglobin A1c in Blood HGB A1C Lab Routine Type 2 diabetes mellitus without complication, with long-term current use of insulin (HCC) Expected: 02/16/2023, Expires: 04/18/2023 [facility] Work Phone: Comment on above: Expected: 02/16/2023 , Expires: 04/18/2023 Start: 02-16-2023 End: 04-18-2023 Hepatic function 2000 panel - Serum or Plasma HEPATIC FUNCTION PNL Lab Routine Hyperlipidemia, mixed Expected: 02/16/2023, Expires: 04/18/2023 [facility] Work Phone: Comment on above: Expected: 02/16/2023 , Expires: 04/18/2023 Start: 02-16-2023 End: 04-18-2023 Lipid 1996 panel - Serum or Plasma LIPID PANEL BASIC Lab Routine Hyperlipidemia, mixed Expected: 02/16/2023, Expires: 04/18/2023 [facility] Work Phone: Comment on above: Expected: 02/16/2023 , Expires: 04/18/2023 Start: 12-29-2022 COVID-19 VACCINE (6 - Moderna series) COVID-19 VACCINE (6 - Moderna series) [facility] Start: 12-28-2022 Hemoglobin A1c/Hemoglobin.total in Blood HBA1C [facility] Start: 11-24-2022 3 comp foot exam completed DIABETIC FOOT EXAM [facility] Start: 11-24-2022 Diabetic foot examination Diabetic F oot Exam [facility] Start: 10-26-2022 Hepatitis B surface antibody level LDL CHOLESTEROL [facility] Start: 09-14-2022 End: 11-14-2022 C peptide [Mass/volume] in Serum or Plasma C-PEPTIDE BLD Lab Routine Controlled type 2 diabetes mellitus without complication, with long-term current use of insulin (HCC) Expected: 09/14/2022 (Approximate), Expires: 11/14/2022 [facility] Work Phone: Comment on above: Expected: 09/14/2022 (Approximate), Expires: 11/14/2022 Start: 09-14-2022 End: 11-14-2022 Glucose [Mass/volume] in Serum or Plasma GLUCOSE RANDOM BLD Lab Routine Controlled type 2 diabetes mellitus without complication, with long-term current use of insulin (HCC) Expected: 09/14/2022 (Approximate), Expires: 11/14/2022 [facility] Work Phone: Comment on above: Expected: 09/14/2022 (Approximate), Expires: 11/14/2022 Start: 09-14-2022 Hemoglobin A1c/Hemoglobin.total in Blood HBA1C [facility] Start: 07-18-2022 ADVANCE DIRECTIVE DISCUSSION ADVANCE DIRECTIVE DISCUSSION [facility] Start: 07-18-2022 DEPRESSION ASSESSMENT DEPRESSION ASS ESSMENT [facility] Start: 06-11-2022 End: 08-11-2022 Basic metabolic 2000 panel - Serum or Plasma BASIC METABOLIC PNL Lab Routine Primary hypertension Type 2 diabetes mellitus without complication, with long-term current use of insulin (HCC) Expected: 06/11/2022, Expires: 08/11/2022 [facility] Work Phone: Comment on above: Expected: 06/11/2022 , Expires: 08/11/2022 Start: 06-11-2022 End: 08-11-2022 Hemoglobin A1c in Blood HGB A1C Lab Routine Type 2 diabetes mellitus without complication, with long-term current use of insulin (HCC) Expected: 06/11/2022, Expires: 08/11/2022 [facility] Work Phone: Comment on above: Expected: 06/11/2022 , Expires: 08/11/2022 Start: 04-23-2022 COVID-19 VACCINE (5 - Booster for Moderna series) COVID-19 VACCINE (5 - Booster for Moderna series) [facility] Start: 03-18-2022 Influenza vaccination INFLUENZA (#1) [facility] Start: 01-25-2022 Hemoglobin A1c/Hemoglobin.total in Blood HBA1C [facility] Start: 11-24-2021 End: 01-24-2022 C-PEPTIDE BLD [facility] Work Phone: Comment on above: Expected: 11/24/2021 , Expires: 01/24/2022 Start: 11-24-2021 End: 11-24-2022 Glutamate decarboxylase 65 Ab [Units/volume] in Serum [facility] Work Phone: Comment on above: Expected: 11/24/2021 , Expires: 11/24/2022 Start: 11-24-2021 End: 11-24-2022 INSULIN ANTIBODY BLD [facility] Work Phone: Comment on above: Expected: 11/24/2021 , Expires: 11/24/2022 Start: 11-24-2021 End: 01-24-2022 INSULINOMA ASSOCIATED ANTIBODY 2 [facility] Work Phone: Comment on above: Expected: 11/24/2021 , Expires: 01/24/2022 Start: 11-24-2021 End: 11-24-2022 Pancreatic islet cell Ab [Titer] in Serum [facility] Work Phone: Comment on above: Expected: 11/24/2021 , Expires: 11/24/2022 Start: 11-21-2021 Prostate specific an tigen measurement PSA counseling [facility] Work Phone: Start: 10-31-2021 COVID-19 VACCINE (4 - Booster for Moderna series) COVID-19 VACCINE (4 - Booster for Moderna series) [facility] Start: 07-18-2021 ADVANCE DIRECTIVE DISCUSSION ADVANCE DIRECTIVE DISCUSSION [facility] Start: 07-18-2021 DEPRESSION ASSESSMENT DEPRESSION ASS ESSMENT [facility] Start: 03-18-2021 Influenza vaccination S [facility] Work Phone: Start: 03-03-2019 Prostate specific an tigen measurement PSA counseling [facility] Work Phone: Start: 06-30-2016 Lipid panel Lipid screen [facility] Work Phone: Start: 2010 RSV Vaccine (1 - 1-d ose 75+ series) RSV Vaccine (1 - 1-dose 75+ series) [facility] Start: 2000 Pneumococcal 65+ yea rs Vaccine (1 of 1 - PPSV23) Pneumococcal 65+ years Vaccine (1 of 1 - PPSV23) [facility] Work Phone: Start: 2000 PNEUMOVAX AGE 65 AND OVER WITH 5YR LOOKBACK (#1) PNEUMOVAX AGE 65 AND OVER WITH 5YR LOOKBACK (#1) [facility] Start: 1995 Hepatitis B Vaccine (1 of 3 - Risk 3-dose series) Hepatitis B Vaccine (1 of 3 - Risk 3-dose series) [facility] Start: 1995 RSV Vaccine (1 - 1-d ose 60+ series) RSV Vaccine (1 - 1-dose 60+ series) [facility] Start: 1985 Shingles Vaccine (1 of 2) Serra gles Vaccine (1 of 2) [facility] Work Phone: Start: 1985 SHINGRIX VACCINE (1 of 2) SERRA GRIX VACCINE (1 of 2) [facility] Start: 1954 Pneumococcal Vaccine : 50+ (1 of 2 - PCV) Pneumococcal Vaccine: 50+ (1 of 2 - PCV) [facility] Start: 1954 SHINGRIX VACCINE (1 of 2) SERRA GRIX VACCINE (1 of 2) [facility] Start: 1953 Anxiety Screening Anxiety Screening [facility] Start: 1953 Depression Screening Depression Scre ening [facility] Start: 1951 COVID-19 Vaccine (1) COVID-19 Vaccin e (1) [facility] Work Phone: Start: 1945 3 comp foot exam completed DIABETIC FOOT EXAM [facility] Start: 1945 Glaucoma screening Dilated Retinal E xam [facility] Start: 1945 Hepatitis B screening URINE AL BUMIN:CREATININE RATIO [facility] Start: 1945 Hepatitis C antibody , confirmatory test DILATED RETINAL EXAM [facility] Start: 1941 Pneumococcal Vaccine : 65+ (1 - PCV) Pneumococcal Vaccine: 65+ (1 - PCV) [facility] Start: 1941 Pneumococcal Vaccine : 65+ (1 of 2 - PCV) Pneumococcal Vaccine: 65+ (1 of 2 - PCV) [facility] Start: 1941 PNEUMOCOCCAL: 65+ (1 - PCV) PNEUMOCOCCAL: 65+ (1 - PCV) [facility] Bilirubin measuremen t, urine [facility] HB A1C B/O HB A1C B/O Lab R outine Type 2 diabetes mellitus without complication, with long-term current use of insulin (HCC) Ordered: 03/15/2024 [facility] Work Phone: Comment on above: Ordered: 03/15/2024 Hemoglobin [Presence ] in Urine [facility] Lactic acid measurement [facility] [facility] levETIRAcetam [Mass/volume] in Serum or Plasma LEVETIRACETAM Lab Routine Nonintractable epilepsy without status epilepticus, unspecified epilepsy type (HCC) Ordered: 07/26/2022 [facility] Work Phone: Comment on above: Ordered: 07/26/2022 Measurement of keton es in urine using dipstick [facility] Microscopic urinalysis [facility] End: 01-30-2021 MRI LUMBAR SPINE WO CONTRAST MRI LUMBAR SPINE WO CONTRAST Imaging Routine Once for 1 Occurrences starting 01/30/2021 until 01/30/2021 [facility] Work Phone: Comment on above: Once for 1 Occurrenc es starting 01/30/2021 until 01/30/2021 MRI LUMBAR SPINE WO CONTRAST MRI LUMBAR SPINE WO CONTRAST Imaging Routine 01/30/2021 2:05 PM EDT [facility] Work Phone: Patient Education [facility] Work Phone: Patient referral [facility] Work Phone: pH of Urine [facility] Prostate specific Ag [Mass/volume] in Serum or Plasma PSA/PROSTSPECAG DIAG Lab Routine Prostate cancer (HCC) Ordered: 07/26/2022 [facility] Work Phone: Comment on above: Ordered: 07/26/2022 Specific gravity of Urine [facility] Urine blood test [facility] Urine dipstick for glucose [facility] Urine dipstick for leukocyte esterase [facility] Urine dipstick for nitrite [facility] Urine dipstick for protein [facility] Urine examination [facility] Urine microscopy: epithelial cells [facility] Urine Microscopy: wh ite cells [facility] Urobilinogen [Presen ce] in Urine [facility] End: 10-25-2025 XR Foot - bilateral AP and Lateral and oblique XR FOOT GENERAL 3V AP/LAT/OBL BILATERAL Radiology Routine Injury of left foot, initial encounter Injury of right foot, initial encounter Pedal edema Foot pain, bilateral 1 Occurrences starting 09/25/2024 until 10/25/2025 [facility] Work Phone: Comment on above: 1 Occurrences starti ng 09/25/2024 until 10/25/2025 XR Foot - bilateral AP and Lateral and oblique XR FOOT GENERAL 3V AP/LAT/OBL BILATERAL Radiology Routine Injury of left foot, initial encounter Injury of right foot, initial encounter Pedal edema Foot pain, bilateral 09/26/2024 12:16 PM EDT [facility] Work Phone: End: 08-25-2023 XR SHOULDER LIMITED 2V AP/TRUE AP LEFT XR SHOULDER LIMITED 2V AP/TRUE AP LEFT Radiology Routine Chronic left shoulder pain 1 Occurrences starting 07/26/2022 until 08/25/2023 [facility] Work Phone: Comment on above: 1 Occurrences starti ng 07/26/2022 until 08/25/2023 End: 08-25-2023 XR WRIST GENERAL 3V PA/LAT/OBL LEFT XR WRIST GENERAL 3V PA/LAT/OBL LEFT Radiology Routine Left wrist pain 1 Occurrences starting 07/26/2022 until 08/25/2023 [facility] Work Phone: Comment on above: 1 Occurrences starti ng 07/26/2022 until 08/25/2023 [facility] Immunizations Immunization Date Immunization Notes Care Provider [facility] 04-15-2023 COVID-19 vaccine, ag e 12+ yr, season (MODERNA) Keyla Schultz MD Work Phone: [facility] 04-15-2023 influenza (aIIV4) vaccine, age 65+ yr, quadrivalent, PF (FLUAD QUAD) Keyla Schultz MD Work Phone: [facility] 04-15-2023 influenza, injectabl e, quadrivalent, preservative free Saulo Schultz MD Work Phone: [facility] 04-15-2023 influenza virus vaccine, unspecified formulation Elizabeth Guillermo RN [facility] 08-31-2022 COVID-19 vaccine, ag e 12+ yr, bivalent (MODERNA) Keyla Schultz MD Work Phone: [facility] 05-01-2022 influenza (aIIV4) vaccine, age 65+ yr, quadrivalent, PF (FLUAD QUADRIVALENT) Cesar Manjarrez APRN.WINDOWS TECHNICAL SPECIALIST Work Phone: [facility] 05-01-2022 influenza, injectabl e, quadrivalent, preservative free Saulo Schultz MD Work Phone: [facility] 05-01-2022 influenza virus vaccine, unspecified formulation Keyla Schultz MD Work Phone: [facility] 02-26-2022 Covid (Moderna) Saulo coates MD Work Phone: [facility] 07-02-2021 Covid (Moderna) Saulo coates MD Work Phone: [facility] 05-20-2021 influenza, high-dose , quadrivalent vaccine (FLUZONE HIGH DOSE QUADRIVALENT) Keyla Schultz MD Work Phone: [facility] 09-11-2020 Covid (Moderna) Saulo coates MD Work Phone: [facility] 08-14-2020 Covid (Moderna) Saulo coates MD Work Phone: [facility] 04-17-2020 influenza, high dose seasonal, preservative-free Stephanieanalilia Hill CLINICAL 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 [id number] 2022 Unknown [id number] 2020 Medicare UHC AARP MEDICAR E [facility] MEDICARE O [id number] 2020-[facility] [phone] [address] [address] [place] [address] O [id number] 2020 Medicare [id number] Medicare [id number] Unknown [id number] .462 Unknown [id number] 2.16.840.1.052019.3.579.2 .462 Unknown [id number] 2.16.840.1.340626.3.579.2 .462 Unknown [id number] 2.16.840.1.364527.3.579.2 .462 Unknown [id number] 2.16.840.1.272101.3.579.2 .462 Unknown [id number] 2.16.840.1.744807.3.579.2 .462 Unknown [id number] 2.16.840.1.198317.3.579.2 .462 Unknown [id number] 2.16.840.1.478341.3.579.2 .462 Unknown [id number] 2.16.840.1.718163.3.579.2 .462 Unknown [id number] 2.16.840.1.179506.3.579.2 .462 Unknown [id number] 2.16.840.1.835245.3.579.2 .462 Unknown [id number] 2.16.840.1.437224.3.579.2 .462 Unknown [id number] 2.16.840.1.097491.3.579.2 .462 Unknown [id number] 2.16.840.1.846791.3.579.2 .462 Unknown [id number] 2.16.840.1.783741.3.579.2 .462 Unknown [id number] 2.16.840.1.882135.3.579.2 .462 Unknown [id number] 2.16.840.1.513810.3.579.2 .462 Unknown [id number] 2.16.840.1.247592.3.579.2 .462 Unknown [id number] 2.16.840.1.787193.3.579.2 .462 Unknown [id number] 2.16.840.1.375653.3.579.2 .462 Unknown [id number] 2.16.840.1.588067.3.579.2 .462 Unknown [id number] 2.16.840.1.571363.3.579.2 .462 Social History Date Type Detail Facility Start: 12-25-2018 End: 03-16-2022 Tobacco smoking status NHIS Never smoker [facility] Start: 12-25-2018 Tobacco use and exposure Current use r [facility] History of tobacco use Chews Tobacco [facility] Start: 12-25-2018 Alcohol intake Current non-dr hcc coders of alcohol (finding) [facility] Work Phone: Start: 12-25-2018 Tobacco Comment has used chewi ng tobacco since he was 3 years old [facility] Work Phone: Start: 1935 Sex Assigned At Not on file [facility] Work Phone: Start: 01-14-2017 End: 03-16-2022 Tobacco use and exposure Smokeless tobacco non-user [facility] Start: 01-29-2021 End: 03-15-2024 Alcohol intake Ex-drinker (finding) [facility] Start: 08-27-2020 History SDOH Alcohol Frequency 1 [facility] Start: 08-27-2020 History SDOH Alcohol Comment hasn't drank for 35 years, was a heavy drinker [facility] Start: 10-16-2021 End: 03-16-2022 Exposure to SARS-CoV-2 (event) Not sure [facility] Start: 1935 Sex Assigned At Male [facility] Start: 01-04-2022 Tobacco smoking stat us MNIS Unknown if ever smoked [facility] Work Phone: Start: 08-27-2020 End: 03-10-2023 History of Social function [facility] Start: 08-27-2020 End: 03-10-2023 Alcohol Use Disorder Identification Test - Consumption [AUDIT-C] [facility] How often to you hav e a drink containing alcohol? Never [facility] Average Number of Drinks Not on file [facility] Work Phone: Start: 10-15-2024 End: 10-30-2024 Sex Male (finding) [facility] Medical Equipment Procedure Code Equipment Code Equipment Origin al Text Equipment Identifier Dates [id number], [id number], [id number], [id number], [id number], [id number] Start: 10-28-2021 End: 09-13-2024 Comment on above: 1 Container as neede d (For disposal of insulin needles, lancets, and other sharp objects) for up to 1 day. Use with blood gluco se test 3 times daily. Use to inject insuli n twice daily. Use to inject insuli n up to 8 times per day. Use with blood gluco se test 2 times daily. Goals Date Patient Goal Desired Activity /State Functional Status Date Assessment Result Facility 11-28-2024 Functional status Ambulates;Back to bed [facility] Work Phone: 11-09-2024 Functional status Ambulates;Tashi r;Bathroom Privilege;Back to bed [facility] Work Phone: 10-18-2024 Functional status Bathroom Privilege [facility] Work Phone: 10-29-2021 Are you deaf, or do you have serious difficulty hearing No 10/29/2021 3:25 PM Renato Sarah RN No [facility] 10-29-2021 Are you blind, or do you have serious difficulty seeing, even when wearing glasses No 10/29/2021 3:25 PM Renato Sarah RN No [facility] 10-29-2021 Do you have serious difficulty walking or climbing stairs No 10/29/2021 3:25 PM Renato Sarah RN No [facility] 10-29-2021 Do you have difficul ty dressing or bathing No 10/29/2021 3:25 PM EDT Renato You RN No [facility] 10-29-2021 Because of a physica l, mental, or emotional condition, do you have difficulty doing errands alone such as visiting a physician's office or shopping No 10/29/2021 3:25 PM EDT Renato You RN No [facility] Mental Status Date Assessment Result Facility 11-28-2024 Cognitive function Voice/Name [facility] Work Phone: 11-09-2024 Cognitive function Voice/Name [facility] Work Phone: 10-18-2024 Cognitive function Voice/Name [facility] Work Phone: 10-15-2024 Cognitive function Level Of Cons ciousness Awake;Appropriate;Follows Commands [facility] Work Phone: 10-29-2021 Because of a physica l, mental, or emotional condition, do you have serious difficulty concentrating, remembering, or making decisions No 10/29/2021 3:25 PM EDT Renato You RN No [facility] Clinical Notes 10-26-2021 to 01-15-2025 Telephone Encounter - Stephen Berry LPN - 01/15/2025 10:00 AM EDTTelephone Encounter - Stephen Berry LPN - 01/15/2025 10:00 AM EDT Note Date & Type Note Facility 01-15-2025 Telephone encount er Note Prescription Refill Information The patient has been identified by name and date of : Yes Caregiver verified no other encounters exist for this prescription request: Yes Caregiver confirmed with patient/requestor that no other refills are due, in the near future, with this provider at this time: Yes The last office visit in the department: 03/15/24 Does the patient have a future office visit with this provider/department: No Requested Prescriptions Pending Prescriptions Disp Refills rosuvastatin (CRESTOR) 10 mg tablet [Pharmacy Med Name: Rosuvastatin Calcium 10 MG Oral Tablet] 100 tablet 2 Sig: TAKE 1 TABLET BY MOUTH ONCE DAILY Stephen Berry LPN January 15, 2025 10:00 AM [facility] 01-15-2025 Miscellaneous Notes Formattin g of this note is different from the original. Prescription Refill Information The patient has been identified by name and date of : Yes Caregiver verified no other encounters exist for this prescription request: Yes Caregiver confirmed with patient/requestor that no other refills are due, in the near future, with this provider at this time: Yes The last office visit in the department: 03/15/24 Does the patient have a future office visit with this provider/department: No Requested Prescriptions Pending Prescriptions Disp Refills rosuvastatin (CRESTOR) 10 mg tablet [Pharmacy Med Name: Rosuvastatin Calcium 10 MG Oral Tablet] 100 tablet 2 Sig: TAKE 1 TABLET BY MOUTH ONCE DAILY Stephen Berry LPN January 15, 2025 10:00 AM documented in this encounter [facility] 12-03-2024 Telephone encount er Note Received orders from [facility]. Placed in provider's inbox for review. Route to [place] fax [facility] 12-03-2024 Miscellaneous Notes Formattin g of this note might be different from the original. Received orders from [facility]. Placed in provider's inbox for review. Route to [place] fax documented in this encounter [facility] 12-03-2024 Telephone encount er Note Orders faxed. Confirmation received [facility] 12-03-2024 Miscellaneous Notes Formattin g of this note might be different from the original. Orders faxed. Confirmation received Received discharge summary from [facility]. Placed in provider's inbox for review. Route to MA scanning documented in this encounter [facility] 12-03-2024 Telephone encount er Note Received discharge summary from [facility]. Placed in provider's inbox for review. Route to MA scanning [facility] 12-03-2024 Telephone encount er Note Received orders from [facility]. Placed in provider's inbox for review. Route to MA fax [facility] 12-03-2024 Miscellaneous Notes Formattin g of this note might be different from the original. Received orders from [facility]. Placed in provider's inbox for review. Route to [place] fax documented in this encounter [facility] 11-28-2024 Discharge summary Note Date/Time November 28, 2024 3:45p [facility] Medical Records Department [address] [place] [id number] Transfer to [facility] MR#: [id number] Acct: [id number] Name: LINO WHEELER Rep #:[id number] : 1935 89 From: Gray Pierce DO PCP: Dr. Saulo Schultz MD Status:ADM ALEX Certification of patient admission REQUIRED AT TIME OF ADMISSION. I CERTIFY THAT POST-HOSPITAL ECF SERVICES ARE REQUIRED TO BE GIVEN ON AN IN-PATIENT BASIS BECAUSE OF THE ABOVE NAMED PATIENT'S NEED FOR CORRECTION CARE ON A CONTINUING BASIS FOR THE CONDITION(S) FOR WHICH HE/SHE WAS RECEIVING IN-PATIENT HOSPITAL SERVICES PRIOR TO HIS/HER TRANSFER TO THE F. 11/28/24 0203<Electronically signed by Gray Pierce DO> Diet Diet Order/Speech Therapy: 11/26/24 22:33 Diet: Consistent Carb - Calorie Controlled Food consistency:: Mechanical (Minced/Moist) Liquid Consistency:: Regular/Thin Dietary Modifications:: Consistent Carbohydrate Type of Dietary Supplement:: Glucerna Shake Diet Comments: ground meats only very soft fruits/veggies as pt is edentulous, vanilla glu How many daily calories?: 2000 calorie Routine Orders/Code Status Code Status: Full Code DC O2, CPAP, BIPAP needs Home O2 Discharge instructions: No Wound(s) bilat legs: Wound Type: multiple DEBORAH scratches Therapies Weight Bearing: Full weight bearing (use walker) Physical Therapy: Eval and Treat Occupational Therapy: Eval and Treat Problem/Diagnosis (1) Debility: Status: Acute Code(s): R53.81 - Other malaise (2) Spinal stenosis of lumbar region with radiculopathy: Status: Acute Code(s): M48.061 - Spinal stenosis, lumbar region without neurogenic claudication; M54.16- Radiculopathy, lumbar region Plan 1. Acute on chronic debility-PT and OT will see the patient, the plan is for the patient to go to a detention facility for short-term rehab services. #2 essential hypertension-the patient will remain on his present medications, blood pressure medications will be adjusted as needed #3 hyperlipidemia-patient is on a statin #4 type 2 diabetes-patient will receive sliding scale insulin as indicated by fingerstick blood sugars #5 history of seizure disorder-patient is on Keppra Total clinical time spent by myself addressing the patient's medical issues, reviewing all of his data, and collaborating the patient's care team: 35 minutes Allergies/Procedures Done in Hospital Allergies Penicillins Allergy (Mild, Verified 11/26/24 13:31) Hives hydromorphone (From Dilaudid) Allergy (Verified 11/26/24 13:31) Hallucinations ketorolac (From Toradol) Allergy (Verified 11/26/24 13:31) Itching Procedures: None Type of Care/Length of Stay Estimated LOS: Convalescent Care Less Than 30 days Type of Care Needed: Skilled Rehab Potential: Good Prognosis: Good Additional Orders/Day of Discharge H&P will serve as current which was dated: 11/26/24 Day of Discharge: 11/28/24 Discharge Plan Admission Admit Date/Time: 11/26/24 21:39 Primary Reason for Your Visit: debility Attending Provider: Gray Pierce Primary Care Provider: Saulo Schultz Consulting Providers: Isaiah Gómez Discharge Orders/Prescriptions Prescriptions: New acetaminophen 325 mg Tablet 650 mg PO Q6H PRN PRN (Reason: Pain 1-5/10 Or Fever>100.7) Qty: 0 0RF magnesium hydroxide 400 mg/5 mL Suspension 30 ml PO DAILY PRN PRN (Reason: Constipation) Qty: 0 0RF alum-mag hydroxide-simeth [Mag-Al Plus Extra Strength] 400-400-40 mg/5 mL Suspension 30 ml PO Q6H PRN PRN (Reason: Gastric Burning) Qty: 0 0RF insulin lispro [Humalog KwikPen Insulin] 100 unit/mL Insulin Pen See Protocol subcut ACHS Qty: 0 0RF Protocol: 3. Sliding Scale Insulin Med Dosing Condition: 150-189 mg/dl = 1 unit Condition: 190-229 mg/dl = 2 units Condition: 230-269 mg/dl = 3 units Condition: 270-309 mg/dl = 4 units Condition: 310-349 mg/dl = 5 units Condition: 350-399 mg/dl = 6 units Condition: 400-449 mg/dl = 7 units Condition: Greater than 449 call physician Protocol Text: Suggested for: - Patients on Total Daily Insulin Dose of 37-55 units - Obese, infected, or steroid patients MEDIUM DOSING ALGORITHIM oxycodone 10 mg Tablet,Oral Only,Ext.Rel.12 Hr 20 mg PO BID 2 Days Qty: 8 0RF Continued levetiracetam 500 mg tablet 500 mg PO BID amitriptyline 25 mg tablet 25 mg PO DAILY tamsulosin 0.4 mg capsule 0.4 mg PO DAILY allopurinol 300 mg tablet 300 mg PO DAILY sennosides-docusate sodium [Stimulant Laxative Plus] 8.6-50 mg Tablet 2 tab PO BID Qty: 0 0RF hydroxyzine pamoate 25 mg capsule 25 mg PO QHS PRN (Reason: insomnia) Qty: 30 0RF oxymetazoline [12 Hour Nasal Relief [place]] 0.05 % spray,non-aerosol 2 spray intranasal BID PRN (Reason: Nasal congestion) 30 Days Qty: 0 0RF rosuvastatin 10 mg tablet 10 mg PO DAILY 30 Days Qty: 30 2RF metoprolol tartrate 25 mg Tablet 25 mg PO BID Qty: 60 0RF Discontinued Januvia 100 mg tablet 100 mg PO DAILY insulin lispro [Humalog Andrews KwikPen U-100] 100 unit/mL insulin pen, half-unit See Protocol subcut TIDCM Qty: 15 3RF Protocol: 3. Sliding Scale Insulin Med Dosing Condition: 150-189 mg/dl = 1 unit Condition: 190-229 mg/dl = 2 units Condition: 230-269 mg/dl = 3 units Condition: 270-309 mg/dl = 4 units Condition: 310-349 mg/dl = 5 units Condition: 350-399 mg/dl = 6 units Condition: 400-449 mg/dl = 7 units Condition: Greater than 449 call physician Protocol Text: Suggested for: - Patients on Total Daily Insulin Dose of 37-55 units - Obese, infected, or steroid patients MEDIUM DOSING ALGORITHIM Rx Instructions: Call PCP if Glucose <70 or > 400 Xtampza ER 18 mg cap,sprinkl,ER12hr(DONT CRUSH) 18 mg PO BID 3 Days Qty: 6 0RF Rx Instructions: must administer with a meal/food No Action insulin glargine [Lantus Solostar U-100 Insulin] 100 unit/mL (3 mL) insulin pen subcut Patient Comments: unknown dosage Referrals / Follow Up: Saulo Schultz MD [Primary Care Provider] - Disposition Disposition (needs filled in before D/C Order can be placed): [facility] 11/28/24 5533 <Electronically signed by Gray Pierce DO> Cosigner Signature (if applicable): CC: Dr. Isaiah Gómez DO; Dr. Saulo Schultz MD ~ [facility] Work Phone: [phone]) 817-262105-14-2025 Discharge summary [facility] Medical Records Department [address] [place] [address] Transfer to [facility] MR#: [id number] Acct: [id number] Name: LINO WHEELER Rep #:[id number] : 1935 89 From: Gray Pierce DO PCP: Dr. Saulo Schultz MD Status:ADM ALEX Certification of patient admission REQUIRED AT TIME OF ADMISSION. I CERTIFY THAT POST-HOSPITAL ECF SERVICES ARE REQUIRED TO BE GIVEN ON AN IN-PATIENT BASIS BECAUSE OF THE ABOVE NAMED PATIENT'S NEED FOR CORRECTION CARE ON A CONTINUING BASIS FOR THE CONDITION(S) FOR WHICH HE/SHE WAS RECEIVING IN-PATIENT HOSPITAL SERVICES PRIOR TO HIS/HER TRANSFER TO THE ECF. 11/28/24 1545 Diet Diet Order/Speech Therapy: 11/26/24 22:33 Diet: Consistent Carb - Calorie Controlled Food consistency:: Mechanical (Minced/Moist) Liquid Consistency:: Regular/Thin Dietary Modifications:: Consistent Carbohydrate Type of Dietary Supplement:: Glucerna Shake Diet Comments: ground meats only very soft fruits/veggies as pt is edentulous, vanilla glu How many daily calories?: 2000 calorie Routine Orders/Code Status Code Status: Full Code DC O2, CPAP, BIPAP needs Home O2 Discharge instructions: No Wound(s) bilat legs: Wound Type: multiple DEBORAH scratches Therapies Weight Bearing: Full weight bearing (use walker) Physical Therapy: Eval and Treat Occupational Therapy: Eval and Treat Problem/Diagnosis (1) Debility: Status: Acute Code(s): R53.81 - Other malaise (2) Spinal stenosis of lumbar region with radiculopathy: Status: Acute Code(s): M48.061 - Spinal stenosis, lumbar region without neurogenic claudication; M54.16- Radiculopathy, lumbar region Plan 1. Acute on chronic debility-PT and OT will see the patient, the plan is for the patient to go to [facility] for short-term rehab services. #2 essential hypertension-the patient will remain on his present medications, blood pressure medications will be adjusted as needed #3 hyperlipidemia-patient is on a statin #4 type 2 diabetes-patient will receive sliding scale insulin as indicated by fingerstick blood sugars #5 history of seizure disorder-patient is on Keppra Total clinical time spent by myself addressing the patient's medical issues, reviewing all of his data, and collaborating the patient's care team: 35 minutes Allergies/Procedures Done in Hospital Allergies Penicillins Allergy (Mild, Verified 11/26/24 13:31) Hives hydromorphone (From Dilaudid) Allergy (Verified 11/26/24 13:31) Hallucinations ketorolac (From Toradol) Allergy (Verified 11/26/24 13:31) Itching Procedures: None Type of Care/Length of Stay Estimated LOS: Convalescent Care Less Than 30 days Type of Care Needed: Skilled Rehab Potential: Good Prognosis: Good Additional Orders/Day of Discharge H&P will serve as current which was dated: 11/26/24 Day of Discharge: 11/28/24 Discharge Plan Admission Admit Date/Time: 11/26/24 21:39 Primary Reason for Your Visit: debility Attending Provider: Gray Pierce Primary Care Provider: Saulo Schultz Consulting Providers: Isaiah Gómez Discharge Orders/Prescriptions Prescriptions: New acetaminophen 325 mg Tablet 650 mg PO Q6H PRN PRN (Reason: Pain 1-5/10 Or Fever>100.7) Qty: 0 0RF magnesium hydroxide 400 mg/5 mL Suspension 30 ml PO DAILY PRN PRN (Reason: Constipation) Qty: 0 0RF alum-mag hydroxide-simeth [Mag-Al Plus Extra Strength] 400-400-40 mg/5 mL Suspension 30 ml PO Q6H PRN PRN (Reason: Gastric Burning) Qty: 0 0RF insulin lispro [Humalog KwikPen Insulin] 100 unit/mL Insulin Pen See Protocol subcut ACHS Qty: 0 0RF Protocol: 3. Sliding Scale Insulin Med Dosing Condition: 150-189 mg/dl = 1 unit Condition: 190-229 mg/dl = 2 units Condition: 230-269 mg/dl = 3 units Condition: 270-309 mg/dl = 4 units Condition: 310-349 mg/dl = 5 units Condition: 350-399 mg/dl = 6 units Condition: 400-449 mg/dl = 7 units Condition: Greater than 449 call physician Protocol Text: Suggested for: - Patients on Total Daily Insulin Dose of 37-55 units - Obese, infected, or steroid patients MEDIUM DOSING ALGORITHIM oxycodone 10 mg Tablet,Oral Only,Ext.Rel.12 Hr 20 mg PO BID 2 Days Qty: 8 0RF Continued levetiracetam 500 mg tablet 500 mg PO BID amitriptyline 25 mg tablet 25 mg PO DAILY tamsulosin 0.4 mg capsule 0.4 mg PO DAILY allopurinol 300 mg tablet 300 mg PO DAILY sennosides-docusate sodium [Stimulant Laxative Plus] 8.6-50 mg Tablet 2 tab PO BID Qty: 0 0RF hydroxyzine pamoate 25 mg capsule 25 mg PO QHS PRN (Reason: insomnia) Qty: 30 0RF oxymetazoline [12 Hour Nasal Relief [place]] 0.05 % spray,non-aerosol 2 spray intranasal BID PRN (Reason: Nasal congestion) 30 Days Qty: 0 0RF rosuvastatin 10 mg tablet 10 mg PO DAILY 30 Days Qty: 30 2RF metoprolol tartrate 25 mg Tablet 25 mg PO BID Qty: 60 0RF Discontinued Januvia 100 mg tablet 100 mg PO DAILY insulin lispro [Humalog Andrews KwikPen U-100] 100 unit/mL insulin pen, half-unit See Protocol subcut TIDCM Qty: 15 3RF Protocol: 3. Sliding Scale Insulin Med Dosing Condition: 150-189 mg/dl = 1 unit Condition: 190-229 mg/dl = 2 units Condition: 230-269 mg/dl = 3 units Condition: 270-309 mg/dl = 4 units Condition: 310-349 mg/dl = 5 units Condition: 350-399 mg/dl = 6 units Condition: 400-449 mg/dl = 7 units Condition: Greater than 449 call physician Protocol Text: Suggested for: - Patients on Total Daily Insulin Dose of 37-55 units - Obese, infected, or steroid patients MEDIUM DOSING ALGORITHIM Rx Instructions: Call PCP if Glucose <70 or > 400 Xtampza ER 18 mg cap,sprinkl,ER12hr(DONT CRUSH) 18 mg PO BID 3 Days Qty: 6 0RF Rx Instructions: must administer with a meal/food No Action insulin glargine [Lantus Solostar U-100 Insulin] 100 unit/mL (3 mL) insulin pen subcut Patient Comments: unknown dosage Referrals / Follow Up: Saulo Schultz MD [Primary Care Provider] - Disposition Disposition (needs filled in before D/C Order can be placed): [facility] 11/28/24 8606 Cosigner Signature (if applicable): CC: Dr. Isaiah Gómez DO; Dr. Saulo Schultz MD ~ [facility]05-14-2025 [facility] Medical Records Department [address] [place] [address] Discharge Summary 11/28/24 1545 MR#: [id number] Acct: [id number] Name: LINO WHEELER Rep #: [id number] : 1935 89 From: Gray Pierce DO PCP: Dr. Saulo Schultz MD Status:DIS ALEX Location: [place] [address] Providers Date of Admission: 11/26/24 Date of Discharge: 11/28/24 Primary Care Physician: Dr. Saulo Schultz MD Reason For Visit: FALL WITH BACK PAIN Diagnosis Discharge Diagnosis (1) Debility: Status: Acute Code(s): R53.81 - Other malaise (2) Spinal stenosis of lumbar region with radiculopathy: Status: Acute Code(s): M48.061 - Spinal stenosis, lumbar region without neurogenic claudication; M54.16 - Radiculopathy, lumbar region Plan 1. Acute on chronic debility-PT and OT will see the patient, the plan is for the patient to go to a detention facility for short-term rehab services. #2 essential hypertension-the patient will remain on his present medications, blood pressure medications will be adjusted as needed #3 hyperlipidemia-patient is on a statin #4 type 2 diabetes-patient will receive sliding scale insulin as indicated by fingerstick blood sugars #5 history of seizure disorder-patient is on Keppra Total clinical time spent by myself addressing the patient's medical issues, reviewing all of his data, and collaborating the patient's care team: 35 minutes Medications at Discharge Home Medications allopurinol 300 mg tablet 300 mg PO DAILY 10/15/24 amitriptyline 25 mg tablet 25 mg PO DAILY 10/15/24 insulin glargine 100 unit/mL (3 mL) subcutaneous pen (Lantus Solostar U-100 Insulin) unit subcut 10/15/24 levetiracetam 500 mg tablet 500 mg PO BID 10/15/24 tamsulosin 0.4 mg capsule 0.4 mg PO DAILY 10/15/24 hydroxyzine pamoate 25 mg capsule 25 mg PO QHS PRN insomnia #30 CAPSULES 10/17/24 oxymetazoline 0.05 % nasal spray (12 Hour Nasal Relief [place]) 2 spray intranasal BID PRN Nasal congestion 30 days #0 mL 10/17/24 sennosides 8.6 mg-docusate sodium 50 mg tablet (Stimulant Laxative Plus) 2 tab PO BID #0 tabs 10/17/24 rosuvastatin 10 mg tablet 10 mg PO DAILY 1 month #30 tabs 10/18/24 metoprolol tartrate 25 mg tablet 25 mg PO BID #60 tabs 11/09/24 acetaminophen 325 mg tablet 650 mg (2 x 325 mg) PO Q6H PRN PRN Pain 1-5/10 Or Fever>100.7 #0 tabs 11/28/24 aluminum-mag hydroxide-simethicone 400 mg-400 mg-40 mg/5 mL oral susp (Mag-Al Plus Extra Strength) 30 ml PO Q6H PRN PRN Gastric Burning #0 mL 11/28/24 insulin lispro 100 unit/mL subcutaneous pen (Humalog KwikPen (U-100) Insulin) See Protocol subcut ACHS #0 mL 11/28/24 magnesium hydroxide 400 mg/5 mL oral suspension 30 ml PO DAILY PRN PRN Constipation #0 mL 11/28/24 oxycodone 10 mg tablet,crush resistant,extended release 12 hr 20 mg (2 x 10 mg) PO BID 2 days #8 tabs 11/28/24 Hospital Course Operations None Procedures None Summary of Care Provided Minutes Spent on Discharge: 31 Hospital Course: This 89-year-old white male was seen in the emergency room at [facility] after falling at home, he had no serious injuries but was too weak to perform ADLs. Patient's was hospitalized and he was alone in the house, evaluation in the emergency room included labs which revealed a normal CBC, chemistry profile was unremarkable except for glucose of 142. Patient's imaging studies did not show any fracture, [facility] and seen by PT and OT, it was recommended that the patient consider a skilled care facility for short- term rehab services and the patient agreed after his talked with him about it. On 11/28/2024, patient was seen and examined:alert, oriented x3 and no apparent distress General Appearance: cooperative, well kempt and well developed Orientation / Consciousness: awake, oriented to person, oriented to place and oriented to time HEENT normocephalic, head/scalp atraumatic and moist oral mucous membranes Eyes PERRL, EOMs intact bilaterally and conjunctivae normal Neck supple, no JVD, thyroid normal and no carotid bruits General: trachea midline Resp normal respiratory effort, no retractions, no use of accessory muscles and clear to auscultation bilaterally Auscultation: Negative for rales, rhonchi or wheezes Cardio regular rate, regular rhythm, S1 normal heart sound, S2 normal heart sound, no murmurs, no rub and no gallops GI normal to inspection, nondistended, normoactive bowel sounds, soft to palpation, non-tender and non- distended Extremity no clubbing, cyanosis or edema Skin no rashes or lesions noted General Skin Exam: no breakdown Neuro oriented x3, CN's II-XII intact bilaterally, moves all extremities, no focal motor deficits and no sensory deficits noted Sensorium / Orientation: awake and alert Speech: speech normal Psych affect lata (more content not included)...[facility]05-13-2025 Progress note Author Gray Pierce [facility] Note Date/Time November 27, 2024 4:34p m [facility] Medical Records Department [address] [place] [address] Progress Note - Hospitalist 11/27/24 1628 MR#: [id number] Acct: [id number] Name: LINO WHEELER Rep #:[id number] : 1935 89 From: Gray Pierce DO PCP: Dr. Saulo Schultz MD Status:ADM [facility] Location: [place] [address] Reason for Visit Reason for Visit: Diagnoses Spinal stenosis, lumbar region without neurogenic claudication (11/26/24) Radiculopathy, lumbar region (11/26/24) Other malaise (11/26/24) Contusion of lower back and pelvis, initial encounter (11/26/24) Strain of muscle, fascia and tendon of lower back, initial encounter (11/26/24) Unspecified fall, initial encounter (11/26/24) Personal history of other diseases of the nervous system and sense organs (11/26/24) Other specified postprocedural states (11/26/24) Subjective Subjective Patient was seen and examined today, he was admitted yesterday due to failure tothrive at home and frequent falls. His still remains in the hospital at this time, she had a kyphoplasty yesterday here. [facility], he is being seen by PT and OT, they pre-CERT is in place presently. Objective Data Objective Data Vital Signs: Vital Signs Temp Pulse Resp BP Pulse Ox O2 Del Method 97.8 F 99 16 95/65 95 Room Air 11/27/24 14:14 11/27/24 14:14 11/27/24 14:14 11/27/24 14:14 11/27/24 14:14 11/27/24 14:14 Oxygen Delivery Method Room Air Weight: 80.9 kg Body Mass Index (BMI) 26.4 Intake & Output: Intake and Output for Last 24 Hours 11/25/24 11/26/24 11/27/24 23:59 23:59 23:59 Intake Total 1436.83 / 1436.83 Output Total 1100 / 1100 Balance 336.83 / 336.83 Lab / Micro Data 11/26/24 19:45 11/26/24 19:45 Labs: Laboratory Results - last 24 hr 11/26/24 19:45: WBC 8.1, RBC 4.48 L, Hgb 13.5, Hct 41.9, MCV 93.5, MCH 30.1, MCHC 32.2, RDW Std Deviation 46.7 H, RDW Coeff of May 13.7, Plt Count 256, MPV 10.3, Immature Gran % (Auto) 0.200, Neut % (Auto) 80.2 H, Lymph % (Auto) 14.0 L,[place] % (Auto) 4.3, Eos % (Auto) 0.9, Baso % (Auto) 0.4, Absolute Neuts (auto) 6.5, Absolute Lymphs (auto) 1.13, Nucleated RBC % 0, Sodium 140, Potassium 4.0, Chloride 102, Carbon Dioxide 25.0, Anion Gap 13, BUN 16, Creatinine 0.78, Est GFR (MDRD) Non- Af 85, BUN/Creatinine Ratio 20.2 H, Glucose 142 H, Calcium 9.7 11/26/24 19:49: Magnesium 2.0 11/26/24 20:10: Urine Color Yellow, Urine Clarity Clear, Urine pH 7.0, Ur Specific [place] 1.010, Urine Protein 15 H, Urine Glucose (UA) Normal, Urine Ketones 50 H, Urine Occult Blood Negative, Urine Nitrite Negative, Urine Bilirubin Negative, Urine Urobilinogen Normal, Ur Leukocyte Esterase Negative, Urine RBC 0-5 SEEN, Urine WBC 0-5 SEEN, Ur Squamous Epith Cells 0 SEEN, Urine Bacteria 0 SEEN, Urine Mucus 0 SEEN 11/26/24 23:07: POC Glucose 131 H 11/27/24 05:35: Hemoglobin A1c 6.5 H, Phosphorus 2.8, TSH 0.804 11/27/24 06:01: POC Glucose 131 H 11/27/24 11:23: POC Glucose 140 H Radiography Diagnostic Testing: Radiology Impression Abdomen/Pelvis CT 11/26/24 15:45 IMPRESSION: 1. Small esophageal hiatal hernia. 2. Inguinal hernias, bilaterally. 3. Colonic diverticulosis without acute diverticulitis. 4. Degenerative changes lumbar spine as described. Reading Location: [facility] Chest X-Ray 11/26/24 19:55 IMPRESSION: Marked left hemidiaphragm elevation is seen, with adjacent left basilar atelectasis. No definite pulmonary edema is seen. No pleural effusion or pneumothorax is evident. The cardiomediastinal silhouette is stable, without evidence of cardiomegaly. Aprominently calcified aorta is noted. Left glenohumeral joint degenerative changes are again noted. Thoracic rightward curvature is also noted. No acute osseous change is seen., although sensitivity may reduced, at least in part, due to the presence of generalized osteopenia. Reading Location: [place] [address] Rhythm Strip Rhythm Strip: Sinus Rhythm Rate: 75 Ectopy: None Physical Exam Const alert, oriented x3 and no apparent distress General Appearance: cooperative, well kempt and well developed Orientation / Consciousness: awake, oriented to person, oriented to place and oriented to time HEENT normocephalic, head/scalp atraumatic and moist oral mucous membranes Eyes PERRL, EOMs intact bilaterally and conjunctivae normal Neck supple, no JVD, thyroid normal and no carotid bruits General: trachea midline Resp normal respiratory effort, no retractions, no use of accessory muscles and clearto auscultation bilaterally Auscultation: Negative for rales, rhonchi or wheezes Cardio regular rate, regular rhythm, S1 normal heart sound, S2 normal heart sound, no murmurs, no rub and no gallops GI normal to inspection, nondistended, normoactive bowel sounds, soft to palpation,non-tender and non-distended Extremity no clubbing, cyanosis or edema Skin no rashes or lesions noted General Skin Exam: no breakdown Neuro oriented x3, CN's II-XII intact bilaterally, moves all extremities, no focal motor deficits and no sensory deficits noted Sensorium / Orientation: awake and alert Speech: speech normal Psych affect normal Assessment & Plan Assessment/Plan (1) Debility: PLAN: Plan 1. Acute on chronic debility-PT and OT will see the patient, the plan is for the patient to go to a detention facility for short-term rehab services. #2 essential hypertension-the patient will remain on his present medications, blood pressure medications will be adjusted as needed #3 hyperlipidemia-patient is on a statin #4 type 2 diabetes-patient will receive sliding scale insulin as indicated by fingerstick blood sugars #5 history of seizure disorder-patient is on Keppra Total clinical time spent by myself addressing the patient's medical issues, reviewing all of his data, and collaborating the patient's care team: 35 minutes Charges/Coding Visit Charges Inpatient E&M: 96996 Subs Hosp L2 11/27/24 1634 <Electronically signed by Gray Pierce DO> Cosigner Signature (if applicable): CC: ~ Signed [facility] Work Phone: 1(437) 323-973705-13-2025 Progress note [facility] Medical Records Department [address] [place] [address] Progress Note - Hospitalist 11/27/24 1628 MR#: [id number] Acct: [id number] Name: LINO WHEELER Rep #:[id number] : 1935 89 From: Gray Pierce DO PCP: Dr. Saulo Schultz MD Status:ADM ALEX Location: [id number] Reason for Visit Reason for Visit: Diagnoses Spinal stenosis, lumbar region without neurogenic claudication (11/26/24) Radiculopathy, lumbar region (11/26/24) Other malaise (11/26/24) Contusion of lower back and pelvis, initial encounter (11/26/24) Strain of muscle, fascia and tendon of lower back, initial encounter (11/26/24) Unspecified fall, initial encounter (11/26/24) Personal history of other diseases of the nervous system and sense organs (11/26/24) Other specified postprocedural states (11/26/24) Subjective Subjective Patient was seen and examined today, he was admitted yesterday due to failure tothrive at home and frequent falls. His still remains in the hospital at this time, she had a kyphoplasty yesterdayhere. Patient has agreed to go to [facility] for rehab services, he is being seen by PT and OT, they pre-CERT is in place presently. Objective Data Objective Data Vital Signs: Vital Signs Temp Pulse Resp BP Pulse Ox O2 Del Method 97.8 F 99 16 95/65 95 Room Air 11/27/24 14:14 11/27/24 14:14 11/27/24 14:14 11/27/24 14:14 11/27/24 14:14 11/27/24 14:14 Oxygen Delivery Method Room Air Weight: 80.9 kg Body Mass Index (BMI) 26.4 Intake & Output: Intake and Output for Last 24 Hours 11/25/24 11/26/24 11/27/24 23:59 23:59 23:59 Intake Total 1436.83 / 1436.83 Output Total 1100 / 1100 Balance 336.83 / 336.83 Lab / Micro Data 11/26/24 19:45 11/26/24 19:45 Labs: Laboratory Results - last 24 hr 11/26/24 19:45: WBC 8.1, RBC 4.48 L, Hgb 13.5, Hct 41.9, MCV 93.5, MCH 30.1, MCHC 32.2, RDW Std Deviation 46.7 H, RDW Coeff of May 13.7, Plt Count 256, MPV 10.3, Immature Gran % (Auto) 0.200, Neut % (Auto) 80.2 H, Lymph % (Auto) 14.0 L,[place] % (Auto) 4.3, Eos % (Auto) 0.9, Baso % (Auto) 0.4, Absolute Neuts (auto) 6.5, Absolute Lymphs (auto) 1.13, Nucleated RBC % 0, Sodium 140, Potassium 4.0, Chloride 102, Carbon Dioxide 25.0, Anion Gap 13, BUN 16, Creatinine 0.78, Est GFR (MDRD) Non-Af 85, BUN/Creatinine Ratio 20.2 H, Glucose 142 H, Calcium 9.7 11/26/24 19:49: Magnesium 2.0 11/26/24 20:10: Urine Color Yellow, Urine Clarity Clear, Urine pH 7.0, Ur Specific [place] 1.010, Urine Protein 15 H, Urine Glucose (UA) Normal, Urine Ketones 50 H, Urine Occult Blood Negative, UrineNitrite Negative, Urine Bilirubin Negative, Urine Urobilinogen Normal, Ur Leukocyte Esterase Negative, Urine RBC 0-5 SEEN, Urine WBC 0-5 SEEN, Ur Squamous Epith Cells 0 SEEN, Urine Bacteria 0 SEEN, Urine Mucus 0 SEEN 11/26/24 23:07: POC Glucose 131 H 11/27/24 05:35: Hemoglobin A1c 6.5 H, Phosphorus 2.8, TSH 0.804 11/27/24 06:01: POC Glucose 131 H 11/27/24 11:23: POC Glucose 140 H Radiography Diagnostic Testing: Radiology Impression Abdomen/Pelvis CT 11/26/24 15:45 IMPRESSION: 1. Small esophageal hiatal hernia. 2. Inguinal hernias, bilaterally. 3. Colonic diverticulosis without acute diverticulitis. 4. Degenerative changes lumbar spine as described. Reading Location: [facility] Chest X-Ray 11/26/24 19:55 IMPRESSION: Marked left hemidiaphragm elevation is seen, with adjacent left basilar atelectasis. No definite pulmonary edema is seen. No pleural effusion or pneumothorax is evident. The cardiomediastinal silhouette is stable, without evidence of cardiomegaly. Aprominently calcified aorta is noted. Left glenohumeral joint degenerative changes are again noted. Thoracic rightward curvature is also noted. No acute osseous change is seen., although sensitivity may reduced, at least in part, due to the presence of generalized osteopenia. Reading Location: [place] [address] Rhythm Strip Rhythm Strip: Sinus Rhythm Rate: 75 Ectopy: None Physical Exam Const alert, oriented x3 and no apparent distress General Appearance: cooperative, well kempt and well developed Orientation / Consciousness: awake, oriented to person, oriented to place and oriented to time HEENT normocephalic, head/scalp atraumatic and moist oral mucous membranes Eyes PERRL, EOMs intact bilaterally and conjunctivae normal Neck supple, no JVD, thyroid normal and no carotid bruits General: trachea midline Resp normal respiratory effort, no retractions, no use of accessory muscles and clearto auscultation bilaterally Auscultation: Negative for rales, rhonchi or wheezes Cardio regular rate, regular rhythm, S1 normal heart sound, S2 normal heart sound, no murmurs, no rub and no gallops GI normal to inspection, nondistended, normoactive bowel sounds, soft to palpation,non-tender and non-distended Extremity no clubbing, cyanosis or edema Skin no rashes or lesions noted General Skin Exam: no breakdown Neuro oriented x3, CN's II-XII intact bilaterally, moves all extremities, no focal motor deficits and no sensory deficits noted Sensorium / Orientation: awake and alert Speech: speech normal Psych affect normal Assessment & Plan Assessment/Plan (1) Debility: PLAN: Plan 1. Acute on chronic debility-PT and OT will see the patient, the plan is for the patient to go to [facility] for short-term rehab services. #2 essential hypertension-the patient will remain on his present medications, blood pressure medications will be adjusted as needed #3 hyperlipidemia-patient is on a statin #4 type 2 diabetes-patient will receive sliding scale insulin as indicated by fingerstick blood sugars #5 history of seizure disorder-patient is on Keppra Total clinical time spent by myself addressing the patient's medical issues, reviewing all of his data, and collaborating the patient's care team: 35 minutes Charges/Coding Visit Charges Inpatient E&M: 70767 Subs Hosp L2 11/27/24 0469 Cosigner Signature (if applicable): CC: ~ Signed [facility]05-13-2025 Telephone encounter Note* Telephone Encounter - Stephen Berry LPN - 11/27/2024 2:39 PM EDT [facility]. Placed in provider's inbox for review. Route to MA scanning [facility]05-13-2025 Miscellaneous Notes* Telephone Encounter - Stephen Berry LPN - 11/27/2024 2:39 PM EDT [facility] Placed in provider's inbox for review. Route to MA scanning [facility] History and physical note Author Isaiah Archer [facility] Note Date/Time November 27, 2024 6:52a m [facility] Medical Records Department [address] [place] [address] H&P Exam - Hospitalist 11/26/242110 MR#: [id number] Acct: [id number] Name: LINO WHEELER Rep #:[id number] : 1935 89 From: Isaiah Peterson DO PCP: Dr. Saulo Schultz MD Status:ADM ALEX Location: [address] [facility] - General General Date of Admission: 11/26/24 Date of Service: 11/26/24 Chief Complaint: Fall. 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, depression; on amitriptyline, gout; on allopurinol, BPH with history of urinary obstruction; ontamsulosin, OA; with spinal stenosis of lumbar region with radiculopathy with history of laminectomy x 2; with chronic low back pain followed by pain management on oxycodone 18 mg PO BID and chronic debility with frequent falls with adult lyjglvp-[id number]-vhtuby causing patient to often use a walker to mobilize with recent admission here from October 31, 2023 to November 09, 2024 for adult [id number] with patient refusing ECF - but also unable to care for himself who presents to [facility] ER complaining of Fall. Mr. Wheeler states his symptoms began approximately one hour prior to arrival when he was at home and going from one room to another when his Right knee gave out on him (as it has many times in the past) causing him to fall onto his buttocks. He then experienced severe pain in both buttocks that radiated in to his mid back. He denies LOC, head trauma or any other significant injuries withhis fall and his pain in is Right knee is reportedly mild. Unfortunately, his primarily takes care of his and she is currently hospitalized her after a recent kyphoplasty with plans to discharge to SNF for rehabilitation leaving thepatient with no one to care for him. There is family out of town but apparentlyno one can come and help him return home at this time resulting in the hospitalist service being contacted to admit him. There was no reported fever, chills, visual changes, runny nose, sore throat, ear pain nausea, vomiting, diarrhea, abdominal pain, chest pain, shortness of breath, dysuria, headache or rash. He was then admitted to the general medical floor under observation status for ongoing care for status for a stay that is expected to be less than 2midnights. [facility] Medical History Failure to thrive History of diabetes mellitus, type II History of seizure disorder Gout Drooping eyelid Home Medications ?Medication ?Instructions ?Recorded ?Last Taken ?Type allopurinol 300 mg tablet 300 mg PO DAILY 10/15/24 Unk nown History amitriptyline 25 mg tablet 25 mg PO DAILY 10/15/24 Unk nown History insulin glargine 100 unit/mL (3 unit subcut 10/15/24 U nknown History mL) subcutaneous pen (Lantus Solostar U-100 Insulin) levetiracetam 500 mg tablet 500 mg PO BID 10/15/24 Unk nown History sitagliptin phosphate 100 mg 100 mg PO DAILY 10/15/24 Unknown History tablet (Januvia) tamsulosin 0.4 mg capsule 0.4 mg PO DAILY 10/15/24 Unk nown History hydroxyzine pamoate 25 mg capsule 25 mg PO QHS PRN ins omnia #30 10/17/24 Unknown Rx CAPSULES oxymetazoline 0.05 % nasal spray 2 spray intranasal BI D PRN Nasal 10/17/24 Unknown Rx (12 Hour Nasal Relief [place]) congestion 30 days #0 mL sennosides 8.6 mg-docusate sodium 2 tab PO BID #0 tabs 10/17/24 Unknown Rx 50 mg tablet (Stimulant Laxative Plus) insulin lispro 100 unit/mL See Protocol subcut TIDCM # 15 mL 10/18/24 Unknown Rx subcutaneous half-unit pen (Humalog Andrews KwikPen (U-100)) rosuvastatin 10 mg tablet 10 mg PO DAILY 1 month #30 t abs 10/18/24 Unknown Rx metoprolol tartrate 25 mg tablet 25 mg PO BID #60 tabs 11/09/24 Unknown Rx oxycodone myristate 18 mg capsule 18 mg PO BID 3 days #6 ea 11/09/24 Unknown Rx sprinkle extended release 12hr(DON'T CRUSH) (Xtampza ER) Allergy/AdvReac Type Severity Reaction Status Date / Time Penicillins Allergy Mild Hives Verified 11/26/24 13:31 hydromorphone (From Dilaudid) Allergy Hallucinati Verified 11/26/24 13:31 ons ketorolac (From Toradol) Allergy Itching Verified 11/26/24 13:31 Family History Father Tuberculosis Surgical History History of back surgery Hx of laminectomy Social History household members: spouse housing: house Smoking Status: Never smoker Smokeless tobacco user: chewing tobacco alcohol intake: never what type of physical activity do you participate in: none do you feel safe at home: Yes ROS ROS Narrative Review of Systems: Constitutional: Patient denies fever or chills. Eyes: Patient denies change in vision or discharge from eyes. ENT: Patient denies runny nose, sore throat or ear pain. Resp: Patient denies shortness of breath or cough. CV: Patient denies chest pain, palpitations, heart racing or lower extremity edema. GI: Patient denies abdominal pain, nausea, vomiting or diarrhea. : Patient denies dysuria or hematuria. MSK: Patient admits to acute worsening of chronic back pain after recent mechanical fall as per HPI. Skin: Patient denies rash, abscess, wounds or jaundice. Psych: Patient denies symptoms uncontrolled depression or anxiety. Neuro: Patient denies headache, paresthesias or focal neurologic deficits. Allergy: Patient denies lip swelling, tongue swelling or urticaria. Hematology: Patient denies easy bleeding or easy bruisability. Endocrinology: Patient denies polyuria, polydipsia, polyphagia or heat/cold intolerance. 14 point ROS otherwise negative save for positives noted above in HPI. Vital Signs Vital Signs Vital Signs: 11/26/24 13:31 11/26/24 16:30 11/26/24 16:30 Temperature 97.8 F Temperature Source Oral Pulse Rate 76 77 Respiratory Rate 15 Respiratory Effort Normal Non-Labored Respiratory Depth Normal Respiratory Pattern Normal Blood Pressure 111/78 148/112 H Blood Pressure Mean 89 124 Pulse Ox 93 99 98 Oxygen Delivery Method Room Air Room Air 11/26/24 18:00 11/26/24 20:00 Temperature Temperature Source Pulse Rate 77 75 Respiratory Rate Respiratory Effort Respiratory Depth Respiratory Pattern Blood Pressure 173/90 H 148/99 H Blood Pressure Mean 117 115 Pulse Ox 99 98 Oxygen Delivery Method Physical Exam Const alert, oriented x3, no apparent distress and average body habitus General Appearance: cooperative HEENT normocephalic, head/scalp atraumatic, hearing grossly normal bilaterally and moist oral mucous membranes Eyes PERRL, EOMs intact bilaterally and conjunctivae normal Neck no lymphadenopathy, supple and no JVD Resp normal respiratory effort, no retractions, no use of accessory muscles and clearto auscultation bilaterally Cardio regular rate and regular rhythm GI normal to inspection, nondistended, normoactive bowel sounds, soft to palpation,non-tender and non-distended Extremity normal to inspection, full ROM and no clubbing, cyanosis or edema Skin Skin Narrative: Patient is evidence of rash, abscess, wounds or jaundice. Neuro oriented x3, CN's II-XII intact bilaterally, moves all extremities and no focal motor deficits Sensorium / Orientation: awake, alert, oriented to person, oriented to place andoriented to time Speech: speech normal Psych affect normal Results Medical Records Data Attestation: I reviewed the patient's medical records Lab / Micro Data Attestation: I reviewed the patient's lab results. 11/26/24 19:45 11/26/24 19:45 Labs: Laboratory Results - last 24 hr 11/26/24 19:45: WBC 8.1, RBC 4.48 L, Hgb 13.5, Hct 41.9, MCV 93.5, MCH 30.1, MCHC 32.2, RDW Std Deviation 46.7 H, RDW Coeff of May 13.7, Plt Count 256, MPV 10.3, Immature Gran % (Auto) 0.200, Neut % (Auto) 80.2 H, Lymph % (Auto) 14.0 L,[place] % (Auto) 4.3, Eos % (Auto) 0.9, Baso % (Auto) 0.4, Absolute Neuts (auto) 6.5, Absolute Lymphs (auto) 1.13, Nucleated RBC % 0, Sodium 140, Potassium 4.0, Chloride 102, Carbon Dioxide 25.0, Anion Gap 13, BUN 16, Creatinine 0.78, Est GFR (MDRD) Non- Af 85, BUN/Creatinine Ratio 20.2 H, Glucose 142 H, Calcium 9.7 11/26/24 20:10: Urine Color Yellow, Urine Clarity Clear, Urine pH 7.0, Ur Specific [place] 1.010, Urine Protein 15 H, Urine Glucose (UA) Normal, Urine Ketones 50 H, Urine Occult Blood Negative, Urine Nitrite Negative, Urine Bilirubin Negative, Urine Urobilinogen Normal, Ur Leukocyte Esterase Negative Rhythm Strip Rhythm Strip: Sinus Rhythm Rate: 75 Ectopy: None Imaging Radiology Impression Abdomen/Pelvis CT 11/26/24 15:45 IMPRESSION: 1. Small esophageal hiatal hernia. 2. Inguinal hernias, bilaterally. 3. Colonic diverticulosis without acute diverticulitis. 4. Degenerative changes lumbar spine as described. Reading Location: [facility] Assessment & Plan Assessment/Plan (1) Accidental fall: QUALIFIERS: Encounter type: initial encounter Qualified Code(s): W19.XXXA - Unspecified fall, initial encounter (2) Contusion of buttock: QUALIFIERS: Encounter type: initial encounter Qualified Code(s): S30.0XXA - Contusion of lower back and pelvis, initial encounter (3) Acute lumbar myofascial strain: QUALIFIERS: Encounter type: initial encounter Qualified Code(s): S39.012A - Strain of muscle, fascia and tendon of lower back, initial encounter (4) Spinal stenosis of lumbar region with radiculopathy: (5) History of back surgery: (6) Hx of laminectomy: (7) Debility: (8) History of seizure disorder: PLAN: Plan 1. Fall at Home in the setting of previously known OA; with spinal stenosis of lumbar region with radiculopathy with history of laminectomy x 2; with chronic low back pain followed by pain management on oxycodone 18 mg PO BID and chronic debility with frequent falls with adult [id number] causing patient to often use a walker to mobilize now with Contusion of Buttock and Acute Lumbar Myofascial Strain - Admit to general medical floor under observation status. Continue home medications as previous. Finally, we will consult PT/OT and Case Management said the patient can hopefully be discharged to ECF with his soon as possible if no other family members will come and take care of him. 2. Recent admission here from October 31, 2023 to November 09, 2024 for adult [id number] with patient refusing ECF - but also unable to care for himself complicating #1 - Noted with similar scenario unfolding this time. 3. Essential hypertension; on metoprolol BID - Maintain current treatment. 4. Hyperlipidemia; on rosuvastatin - Resume statin. 5. DM-2; of unknown control on sitagliptin, insulin glargine and insulin lisproTID - Hold sitagliptin but continue insulin glargine and cover with SSI. 6. History of seizure disorder; on levetiracetam - Current regimen to be continued. 7. 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 8. Depression; on amitriptyline - Resume amitriptyline as before. 9. Gout; on allopurinol - Stable with no evidence of acute flare at this time. Continue allopurinol as previous. 10. BPH with history of urinary obstruction; on tamsulosin - Stable. 11. DVT prophylaxis - Heparin 5,000U sq BID plus SCD's. Total time: Approximately (but not less than) 45 minutes. Charges/Coding Visit Charges OBSV E&M: 08852 Observ/hosp same date L1 11/27/24 0652 <Electronically signed by Isaiah Gómez DO> Cosigner Signature (if applicable): CC: Dr. Isaiah Gómez DO; Dr. Saulo Schultz MD~ Signed [facility] Work Phone: [phone] History and physical note [facility] Medical Records Department [address] [place] [address] H&P Exam - Hospitalist 11/26/242110 MR#: [id number] Acct: [id number] Name: LINO WHEELER Rep #:[id number] : 1935 89 From: Isaiah Peterson DO PCP: Dr. Saulo Schultz MD Status:ADM ALEX Location: [facility] OS998-2 HPI - General General Date of Admission: 11/26/24 Date of Service: 11/26/24 Chief Complaint: Fall. 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, depress ion; on amitriptyline, gout; on allopurinol, BPH with history of urinary obstruction; ontamsulosin,OA; with spinal stenosis of lumbar region with radiculopathy with history of laminectomy x 2; with chronic low back pain followed by pain management on oxycodone 18 mg PO BID and chronic debility with frequent falls with adult [id number] causing patient to often use a walker to mobilize withrecent admission here from October 31, 2023 to November 09, 2024 for adult [id number] with patient refusing ECF - but also unable to care for himself who presents to [facility] ER complaining of Fall. Mr. Wheeler states his symptoms began approximately one hour prior to arrival when he was at home and going from one room to another when his Right knee gave out on him (as it has many times in the past) causing him to fall onto his buttocks. He then experienced severe pain in both buttocks that radiated in to his mid back. He denies LOC, head trauma or any other significant injuries withhis fall and his pain in is Right knee is reportedly mild. Unfortunately, his primarily takes care of his and she is currently hospitalized her after a recent kyphoplasty with plans to discharge to SNF for rehabilitation leaving thepatient with no one to care for him. There is family out of town but alanis prasad one can come and help him return home at this time resulting in the hospitalist service being contacted to admit him. There was no reported fever, chills, visual changes, runny nose, sore throat, ear pain nausea, vomiting, diarrhea, abdominal pain, chest pain, shortness of breath, dysuria, headache or rash. He was then admitted to the general medical floor under observation status for ongoing care for status for a stay that is expected to be less than 2midnights. [facility] Medical History Failure to thrive History of diabetes mellitus, type II History of seizure disorder Gout Drooping eyelid Home Medications ?Medication ?Instructions ?Recorded ?Last Taken ?Type allopurinol 300 mg tablet 300 mg PO DAILY 10/15/24 Unk nown History amitriptyline 25 mg tablet 25 mg PO DAILY 10/15/24 Unk nown History insulin glargine 100 unit/mL (3 unit subcut 10/15/24 U nknown History mL) subcutaneous pen (Lantus Solostar U-100 Insulin) levetiracetam 500 mg tablet 500 mg PO BID 10/15/24 Unk nown History sitagliptin phosphate 100 mg 100 mg PO DAILY 10/15/24 Unknown History tablet (Januvia) tamsulosin 0.4 mg capsule 0.4 mg PO DAILY 10/15/24 Unk nown History hydroxyzine pamoate 25 mg capsule 25 mg PO QHS PRN ins omnia #30 10/17/24 Unknown Rx CAPSULES oxymetazoline 0.05 % nasal spray 2 spray intranasal BI D PRN Nasal 10/17/24 Unknown Rx (12 Hour Nasal Relief [place]) congestion 30 days #0 mL sennosides 8.6 mg-docusate sodium 2 tab PO BID #0 tabs 10/17/24 Unknown Rx 50 mg tablet (Stimulant Laxative Plus) insulin lispro 100 unit/mL See Protocol subcut TIDCM # 15 mL 10/18/24 Unknown Rx subcutaneous half-unit pen (Humalog [place] (U-100)) rosuvastatin 10 mg tablet 10 mg PO DAILY 1 month #30 t abs 10/18/24 Unknown Rx metoprolol tartrate 25 mg tablet 25 mg PO BID #60 tabs 11/09/24 Unknown Rx oxycodone myristate 18 mg capsule 18 mg PO BID 3 days #6 ea 11/09/24 Unknown Rx sprinkle extended release 12hr(DON'T CRUSH) (Xtampza ER) Allergy/AdvReac Type Severity Reaction Status Date / Time Penicillins Allergy Mild Hives Verified 11/26/24 13:31 hydromorphone (From Dilaudid) Allergy Hallucinati Verified 11/26/24 13:31 ons ketorolac (From Toradol) Allergy Itching Verified 11/26/24 13:31 Family History Father Tuberculosis Surgical History History of back surgery Hx of laminectomy Social History household members: spouse housing: house Smoking Status: Never smoker Smokeless tobacco user: chewing tobacco alcohol intake: never what type of physical activity do you participate in: none do you feel safe at home: Yes ROS ROS Narrative Review of Systems: Constitutional: Patient denies fever or chills. Eyes: Patient denies change in vision or discharge from eyes. ENT: Patient denies runny nose, sore throat or ear pain. Resp: Patient denies shortness of breath or cough. CV: Patient denies chest pain, palpitations, heart racing or lower extremity edema. GI: Patient denies abdominal pain, nausea, vomiting or diarrhea. : Patient denies dysuria or hematuria. MSK: Patient admits to acute worsening of chronic back pain after recent mechanical fall as per HPI. Skin: Patient denies rash, abscess, wounds or jaundice. Psych: Patient denies symptoms uncontrolled depression or anxiety. Neuro: Patient denies headache, paresthesias or focal neurologic deficits. Allergy: Patient denies lip swelling, tongue swelling or urticaria. Hematology: Patient denies easy bleeding or easy bruisability. Endocrinology: Patient denies polyuria, polydipsia, polyphagia or heat/cold intolerance. 14 point ROS otherwise negative save for positives noted above in HPI. Vital Signs Vital Signs Vital Signs: 11/26/24 13:31 11/26/24 16:30 11/26/24 16:30 Temperature 97.8 F Temperature Source Oral Pulse Rate 76 77 Respiratory Rate 15 Respiratory Effort Normal Non-Labored Respiratory Depth Normal Respiratory Pattern Normal Blood Pressure 111/78 148/112 H Blood Pressure Mean 89 124 Pulse Ox 93 99 98 Oxygen Delivery Method Room Air Room Air 11/26/24 18:00 11/26/24 20:00 Temperature Temperature Source Pulse Rate 77 75 Respiratory Rate Respiratory Effort Respiratory Depth Respiratory Pattern Blood Pressure 173/90 H 148/99 H Blood Pressure Mean 117 115 Pulse Ox 99 98 Oxygen Delivery Method Physical Exam Const alert, oriented x3, no apparent distress and average body habitus General Appearance: cooperative HEENT normocephalic, head/scalp atraumatic, hearing grossly normal bilaterally and moist oral mucous membranes Eyes PERRL, EOMs intact bilaterally and conjunctivae normal Neck no lymphadenopathy, supple and no JVD Resp normal respiratory effort, no retractions, no use of accessory muscles and clearto auscultation bilaterally Cardio regular rate and regular rhythm GI normal to inspection, nondistended, normoactive bowel sounds, soft to palpation,non-tender and non-distended Extremity normal to inspection, full ROM and no clubbing, cyanosis or edema Skin Skin Narrative: Patient is evidence of rash, abscess, wounds or jaundice. Neuro oriented x3, CN's II-XII intact bilaterally, moves all extremities and no focal motor deficits Sensorium / Orientation: awake, alert, oriented to person, oriented to place andoriented to time Speech: speech normal Psych affect normal Results Medical Records Data Attestation: I reviewed the patient's medical records Lab / Micro Data Attestation: I reviewed the patient's lab results. 11/26/24 19:45 11/26/24 19:45 Labs: Laboratory Results - last 24 hr 11/26/24 19:45: WBC 8.1, RBC 4.48 L, Hgb 13.5, Hct 41.9, MCV 93.5, MCH 30.1, MCHC 32.2, RDW Std Deviation 46.7 H, RDW Coeff of May 13.7, Plt Count 256, MPV 10.3, Immature Gran % (Auto) 0.200, Neut % (Auto) 80.2 H, Lymph % (Auto) 14.0 L,[place] % (Auto) 4.3, Eos % (Auto) 0.9, Baso % (Auto) 0.4, Absolute Neuts (auto) 6.5, Absolute Lymphs (auto) 1.13, Nucleated RBC % 0, Sodium 140, Potassium 4.0, Chloride 102, Carbon Dioxide 25.0, Anion Gap 13, BUN 16, Creatinine 0.78, Est GFR (MDRD) Non-Af 85, BUN/Creatinine Ratio 20.2 H, Glucose 142 H, Calcium 9.7 11/26/24 20:10: Urine Color Yellow, Urine Clarity Clear, Urine pH 7.0, Ur Specific [place] 1.010, Urine Protein 15 H, Urine Glucose (UA) Normal, Urine Ketones 50 H, Urine Occult Blood Negative, UrineNitrite Negative, Urine Bilirubin Negative, Urine Urobilinogen Normal, Ur Leukocyte Esterase Negative Rhythm Strip Rhythm Strip: Sinus Rhythm Rate: 75 Ectopy: None Imaging Radiology Impression Abdomen/Pelvis CT 11/26/24 15:45 IMPRESSION: 1. Small esophageal hiatal hernia. 2. Inguinal hernias, bilaterally. 3. Colonic diverticulosis without acute diverticulitis. 4. Degenerative changes lumbar spine as described. Reading Location: [facility] Assessment & Plan Assessment/Plan (1) Accidental fall: QUALIFIERS: Encounter type: initial encounter Qualified Code(s): W19.XXXA - Unspecified fall, initial encounter (2) Contusion of buttock: QUALIFIERS: Encounter type: initial encounter Qualified Code(s): S30.0XXA - Contusion of lower backand pelvis, initial encounter (3) Acute lumbar myofascial strain: QUALIFIERS: Encounter type: initial encounter Qualified Code(s): S39.012A - Strain of muscle, fascia and tendon of lower back, initial encounter (4) Spinal stenosis of lumbar region with radiculopathy: (5) History of back surgery: (6) Hx of laminectomy: (7) Debility: (8) History of seizure disorder: PLAN: Plan 1. Fall at Home in the setting of previously known OA; with spinal stenosis of lumbar region with radiculopathy with history of laminectomy x 2; with chronic low back pain followed by pain managementon oxycodone 18 mg PO BID and chronic debility with frequent falls with adult [id number] causing patient to often use a walker to mobilize now with Contusion of Buttock and Acute Lumbar Myofascial Strain - Admit to general medical floor under observation status. Continue home medications as previous. Finally, we will consult PT/OT and Case Management said the patient can hopefully be discharged to ECF with his soon as possible if no other family members will come and take care of him. 2. Recent admission here from October 31, 2023 to November 09, 2024 for adult [id number] with patient refusing ECF - but also unable to care for himself complicating #1 - Noted with similar scenario unfolding this time. 3. Essential hypertension; on metoprolol BID - Maintain current treatment. 4. Hyperlipidemia; on rosuvastatin - Resume statin. 5. DM-2; of unknown control on sitagliptin, insulin glargine and insulin lisproTID - Hold sitagliptin but continue insulin glargine and cover with SSI. 6. History of seizure disorder; on levetiracetam - Current regimen to be continued. 7. 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 8. Depression; on amitriptyline - Resume amitriptyline as before. 9. Gout; on allopurinol - Stable with no evidence of acute flare at this time. Continue allopurinolas previous. 10. BPH with history of urinary obstruction; on tamsulosin - Stable. 11. DVT prophylaxis - Heparin 5,000U sq BID plus SCD's. Total time: Approximately (but not less than) 45 minutes. Charges/Coding Visit Charges OBSV E&M: 85237 Observ/hosp same date L1 11/27/24 0652 Cosigner Signature (if applicable): CC: Dr. Isaiah Gómez DO; Dr. Saulo Schultz MD~ Signed [facility]05-12-2025 Discharge summary Author Dl Salazar [facility] Note Date/Time November 26, 2024 9:14p [facility] Medical Records Department [address] [place] [address] Emergency Department Summary 11/26/24 MR#: [id number] Acct: [id number] Name: LINO WHEELER Rep #:[id number] : 1935 89 From: Dl Salazar MD PCP: Dr. Saulo Schultz MD Status:REG ER Location: ED HPI HPI - Fall History of Present Illness Chief Complaint: Fall Informant: patient and EMS Narrative Narrative: 89-year-old male states he was going from 1 room of his home to another and his right knee gave out on him which it has done in the past, causing him to fall tohis buttocks. He has pain in both buttocks, and in his low back up to his mid back. He denies any other injuries. Pain in his right knee is mild. He deniesany prodromal symptoms otherwise. Denies any recent illness. He states some type of mental health social worker came to his home several weeks ago and told him that he was not okay to live by himself. States he uses a walker sometimes to help get around. [facility] Medical History Failure to thrive History of diabetes mellitus, type II History of seizure disorder Gout Drooping eyelid Home Medications ?Medication ?Instructions ?Recorded ?Last Taken ?Type allopurinol 300 mg tablet 300 mg PO DAILY 10/15/24 Unk nown History amitriptyline 25 mg tablet 25 mg PO DAILY 10/15/24 Unk nown History insulin glargine 100 unit/mL (3 unit subcut 10/15/24 U nknown History mL) subcutaneous pen (Lantus Solostar U-100 Insulin) levetiracetam 500 mg tablet 500 mg PO BID 10/15/24 Unk nown History sitagliptin phosphate 100 mg 100 mg PO DAILY 10/15/24 Unknown History tablet (Januvia) tamsulosin 0.4 mg capsule 0.4 mg PO DAILY 10/15/24 Unk nown History hydroxyzine pamoate 25 mg capsule 25 mg PO QHS PRN ins omnia #30 10/17/24 Unknown Rx CAPSULES oxymetazoline 0.05 % nasal spray 2 spray intranasal BI D PRN Nasal 10/17/24 Unknown Rx (12 Hour Nasal Relief [place]) congestion 30 days #0 mL sennosides 8.6 mg-docusate sodium 2 tab PO BID #0 tabs 10/17/24 Unknown Rx 50 mg tablet (Stimulant Laxative Plus) insulin lispro 100 unit/mL See Protocol subcut TIDCM # 15 mL 10/18/24 Unknown Rx subcutaneous half-unit pen (Humalog [place] KwikPen (U-100)) rosuvastatin 10 mg tablet 10 mg PO DAILY 1 month #30 t abs 10/18/24 Unknown Rx metoprolol tartrate 25 mg tablet 25 mg PO BID #60 tabs 11/09/24 Unknown Rx oxycodone myristate 18 mg capsule 18 mg PO BID 3 days #6 ea 11/09/24 Unknown Rx sprinkle extended release 12hr(DON'T CRUSH) (Xtampza ER) Allergy/AdvReac Type Severity Reaction Status Date / Time Penicillins Allergy Mild Hives Verified 11/26/24 13:31 hydromorphone (From Dilaudid) Allergy Hallucinati Verified 11/26/24 13:31 ons ketorolac (From Toradol) Allergy Itching Verified 11/26/24 13:31 Family History Father Tuberculosis Surgical History History of back surgery Hx of laminectomy Social History household members: spouse housing: house Smoking Status: Never smoker Smokeless tobacco user: chewing tobacco alcohol intake: never what type of physical activity do you participate in: none do you feel safe at home: Yes ROS ROS ED Constitutional Constitutional ED: Denies chills or fever(s) Eyes Eyes: Denies change in vision or diplopia ENT ENT ED: Denies rhinorrhea or sore throat Cardiovascular Cardiovascular: Denies chest pain or palpitations Respiratory/Chest Respiratory/Chest: Denies cough or dyspnea Gastrointestinal Gastrointestinal: Denies abdominal pain, diarrhea, nausea or vomiting Genitourinary Genitourinary ED: Denies dysuria or hematuria Musculoskeletal Musculoskeletal: Reports back pain; Denies neck pain Integumentary Denies abscess or rash Neurologic Neurologic: Denies headache(s), paresthesias or weakness Psychiatric Psychiatric: Denies suicidal thoughts EXAM Physical Exam Const Vital Signs: 11/26/24 13:31 11/26/24 16:30 11/26/24 16:30 Temperature 97.8 F Temperature Source Oral Pulse Rate 76 77 Respiratory Rate 15 Respiratory Effort Normal Non-Labored Respiratory Depth Normal Respiratory Pattern Normal Blood Pressure 111/78 148/112 H Blood Pressure Mean 89 124 Pulse Ox 93 99 98 Oxygen Delivery Method Room Air Room Air 11/26/24 18:00 11/26/24 20:00 Temperature Temperature Source Pulse Rate 77 75 Respiratory Rate Respiratory Effort Respiratory Depth Respiratory Pattern Blood Pressure 173/90 H 148/99 H Blood Pressure Mean 117 115 Pulse Ox 99 98 Oxygen Delivery Method Positive well nourished and well developed General Appearance ED: well developed and NAD HEENT Reports moist mucous membranes normocephalic and atraumatic Eyes PERRL and EOMs intact bilaterally Neck full ROM and supple Resp normal respiratory effort and clear to auscultation bilaterally Cardio regular rate, regular rhythm and no murmurs GI non-tender and non-distended Auscultation: normoactive bowel sounds Palpation: soft Back/Spine no CVA tenderness Back/Spine Narrative: Diffuse subjective midline tenderness from the sacrum all the way to the mid- thoracic spine. No severe tenderness. No other back tenderness except for the buttocks bilaterally including the ischial tuberosities. General Back: other Limited range of motion due to pain but able to sit up with assistance Extremity normal to inspection Extremity Narrative: No significant discomfort with logroll bilaterally. No deformities in the legs. Right knee without effusion or bony tenderness. He has full range of motion all ligaments are stable with short endpoints with stressing and no significant discomfort. The greater trochanters are nontender. Pelvis is stable to AP compression. Full range of motion throughout both upper extremities without limitation or pain. General Extremety ED: Negative for edema, pulses abnormal or tenderness General Extremity: Negative for edema or pulses abnormal Neuro oriented x3, CN's II-XII intact bilaterally and no sensory deficits noted Sensorium / Orientation: awake and alert Motor Exam: strength 5/5 throughout Psych mental status grossly normal and thought process normal Skin no rashes or lesions noted and no wounds MDM MDM MDM Narrative Medical decision making narrative: We obtained a CT of his abdomen/pelvis without contrast, given the diffuse pain in his back as well as throughout the pelvis. On my interpretation there is no acute bony or intra-abdominal injury. I had staff attempt to get the patient upand weight-bear. He actually did really well. They stated that EMS said that he got up and walked to the door and greeted them after he called them and they came to get him. Patient states that he has difficulty performing ADLs for reasons that are unclear but his is his caregiver and she is here at the hospital getting a procedure, and I do not know any details about that. He doesnot have a medical reason to be admitted to the hospital right now. I am havingsocial work evaluate him and intervene as able. After discussion with social work, it seems that the patient's is an inpatient in our hospital having had kyphoplasty and is slated to likely go to detention facility tomorrow. Given this, they are recommending respite care for the patient. Patient is amenable to being admitted. There is no localfamily to come stay with him or pick him up, they are all out of town except for1 apparently who is local but is not involved with him and is a drug addict according to a different family member per telephone, per social work. The patient discussing that a mental health social worker told him he cannot live alone several weeks ago, this apparently happened a month ago, similar scenario when he neededrespite care when his was not at home. They do have home health that comesoccasionally to help, but they do not have 24/7 caregiver and the patient is notsafe to be sent home by himself at this time according to social work. Therefore, discussing with hospitalist for admission. I did add labs and a urinalysis and they all look unremarkable. I also did a two-view chest x-ray which show interpretation shows a significant stomach bubble under an elevated left hemidiaphragm but otherwise unremarkable for anything acute. Lab Data Attestation: I reviewed the patient's lab results. Labs: Laboratory Results - last 24 hr 11/26/24 11/26/24 19:45 20:10 WBC 8.1 RBC 4.48 L Hgb 13.5 Hct 41.9 MCV 93.5 MCH 30.1 MCHC 32.2 RDW Std Deviation 46.7 H RDW Coeff of May 13.7 Plt Count 256 MPV 10.3 Immature Gran % (Auto) 0.200 Neut % (Auto) 80.2 H Lymph % (Auto) 14.0 L [place] % (Auto) 4.3 Eos % (Auto) 0.9 Baso % (Auto) 0.4 Absolute Neuts (auto) 6.5 Absolute Lymphs (auto) 1.13 Nucleated RBC % 0 Sodium 140 Potassium 4.0 Chloride 102 Carbon Dioxide 25.0 Anion Gap 13 BUN 16 Creatinine 0.78 Est GFR (MDRD) Non-Af 85 BUN/Creatinine Ratio 20.2 H Glucose 142 H Calcium 9.7 Urine Color Yellow Urine Clarity Clear Urine pH 7.0 Ur Specific [place] 1.010 Urine Protein 15 H Urine Glucose (UA) Normal Urine Ketones 50 H Urine Occult Blood Negative Urine Nitrite Negative Urine Bilirubin Negative Urine Urobilinogen Normal Ur Leukocyte Esterase Negative Radiography Diagnostic Testing: Clinical Impression(s) from Imaging Studies Abdomen/Pelvis CT 11/26/24 15:45 IMPRESSION: 1. Small esophageal hiatal hernia. 2. Inguinal hernias, bilaterally. 3. Colonic diverticulosis without acute diverticulitis. 4. Degenerative changes lumbar spine as described. Reading Location: [facility] Rhythm Strip Rhythm Strip: Sinus Rhythm Rate: 75 Ectopy: None Management Discussion w/another healthcare provider: Hospitalist and fibreglass lay up worker/Case management Discharge Plan Dx/Rx/DC Orders Clinical Impression: Debility, Accidental fall, Contusion of buttock, Acute lumbar myofascial strain Disposition Disposition: Acute Care Hospital [facility] What to do if you have Problems For any increased pain, shortness of breath, bleeding, nausea or vomiting, chestpain, or any unexpected problems, contact your Primary Care Provider. Call [facility] ([phone]) or report to the closest Emergency Room. Call 911 if necessary. 11/26/242113 <Electronically signed by Dl Salazar MD> Cosigner Signature (if applicable): CC: Dr. Saulo Schultz MD ~ Signed [facility] Work Phone: [phone]) 580-847305-12-2025 Radiology Diagnostic study note [facility] Imaging Services [address] [place] [address] Chest PA and Lateral MR#: [id number] Acct: [id number] Name: LINO WHEELER Rep #: [id number] : 1935 M 89 From: Keith Wharton MD PCP: Dr. Saulo Schultz MD Status: REG ER Study:Chest PA and Lateral Date of Exam: 11/26/24 Exam# [id number] Ordering Dr: Joseline Salazar MD PROCEDURE: CHEST PA AND LATERAL 11/26/2024 REASON FOR EXAM: FALL, DEBILITY TECHNIQUE: Three-view AP and lateral chest. COMPARISON: Solutions Delivery Consultant from the chest CT 11/02/2024. RAD/Chest PA and Lateral IMPRESSION: Marked left hemidiaphragm elevation is seen, with adjacent left basilar atelectasis. No definite pulmonary edema is seen. No pleural effusion or pneumothorax is evident. The cardiomediastinal silhouette is stable, without evidence of cardiomegaly. Aprominently calcified aorta is noted. Left glenohumeral joint degenerative changes are again noted. Thoracic rightward curvature is also noted. No acute osseous change is seen., although sensitivity may reduced, at least in part, due to the presence of generalized osteopenia. Reading Location: [place] [address] CC: Dr. Dl Salazar MD; Dr. Saulo Schultz MD ~ Bisque Placer: Signed [facility]05-12-2025 Discharge summary [facility] Medical Records Department [address] [place] [id number] Emergency Department Summary 11/26/24 MR#: [id number] Acct: [id number] Name: LINO WHEELER Rep #:[id number] : 1935 89 From: Dl Salazar MD PCP: Dr. Saulo Schultz MD Status:REG ER Location: ED HPI HPI - Fall History of Present Illness Chief Complaint: Fall Informant: patient and EMS Narrative Narrative: 89-year-old male states he was going from 1 room of his home to another and his right knee gave outon him which it has done in the past, causing him to fall tohis buttocks. He has pain in both buttocks, and in his low back up to his mid back. He denies any other injuries. Pain in his right knee ismild. He deniesany prodromal symptoms otherwise. Denies any recent illness. He states some type of mental health social worker came to his home several weeks ago and told him that he was not okay to live by himself. States he uses a walker sometimes to help get around. [facility] Medical History Failure to thrive History of diabetes mellitus, type II History of seizure disorder Gout Drooping eyelid Home Medications ?Medication ?Instructions ?Recorded ?Last Taken ?Type allopurinol 300 mg tablet 300 mg PO DAILY 10/15/24 Unk nown History amitriptyline 25 mg tablet 25 mg PO DAILY 10/15/24 Unk nown History insulin glargine 100 unit/mL (3 unit subcut 10/15/24 U nknown History mL) subcutaneous pen (Lantus Solostar U-100 Insulin) levetiracetam 500 mg tablet 500 mg PO BID 10/15/24 Unk nown History sitagliptin phosphate 100 mg 100 mg PO DAILY 10/15/24 Unknown History tablet (Januvia) tamsulosin 0.4 mg capsule 0.4 mg PO DAILY 10/15/24 Unk nown History hydroxyzine pamoate 25 mg capsule 25 mg PO QHS PRN ins omnia #30 10/17/24 Unknown Rx CAPSULES oxymetazoline 0.05 % nasal spray 2 spray intranasal BI D PRN Nasal 10/17/24 Unknown Rx (12 Hour Nasal Relief [place]) congestion 30 days #0 mL sennosides 8.6 mg-docusate sodium 2 tab PO BID #0 tabs 10/17/24 Unknown Rx 50 mg tablet (Stimulant Laxative Plus) insulin lispro 100 unit/mL See Protocol subcut TIDCM # 15 mL 10/18/24 Unknown Rx subcutaneous half-unit pen (Humalog Andrews KwikPen (U-100)) rosuvastatin 10 mg tablet 10 mg PO DAILY 1 month #30 t abs 10/18/24 Unknown Rx metoprolol tartrate 25 mg tablet 25 mg PO BID #60 tabs 11/09/24 Unknown Rx oxycodone myristate 18 mg capsule 18 mg PO BID 3 days #6 ea 11/09/24 Unknown Rx sprinkle extended release 12hr(DON'T CRUSH) (Xtampza ER) Allergy/AdvReac Type Severity Reaction Status Date / Time Penicillins Allergy Mild Hives Verified 11/26/24 13:31 hydromorphone (From Dilaudid) Allergy Hallucinati Verified 11/26/24 13:31 ons ketorolac (From Toradol) Allergy Itching Verified 11/26/24 13:31 Family History Father Tuberculosis Surgical History History of back surgery Hx of laminectomy Social History household members: spouse housing: house Smoking Status: Never smoker Smokeless tobacco user: chewing tobacco alcohol intake: never what type of physical activity do you participate in: none do you feel safe at home: Yes ROS ROS ED Constitutional Constitutional ED: Denies chills or fever(s) Eyes Eyes: Denies change in vision or diplopia ENT ENT ED: Denies rhinorrhea or sore throat Cardiovascular Cardiovascular: Denies chest pain or palpitations Respiratory/Chest Respiratory/Chest: Denies cough or dyspnea Gastrointestinal Gastrointestinal: Denies abdominal pain, diarrhea, nausea or vomiting Genitourinary Genitourinary ED: Denies dysuria or hematuria Musculoskeletal Musculoskeletal: Reports back pain; Denies neck pain Integumentary Denies abscess or rash Neurologic Neurologic: Denies headache(s), paresthesias or weakness Psychiatric Psychiatric: Denies suicidal thoughts EXAM Physical Exam Const Vital Signs: 11/26/24 13:31 11/26/24 16:30 11/26/24 16:30 Temperature 97.8 F Temperature Source Oral Pulse Rate 76 77 Respiratory Rate 15 Respiratory Effort Normal Non-Labored Respiratory Depth Normal Respiratory Pattern Normal Blood Pressure 111/78 148/112 H Blood Pressure Mean 89 124 Pulse Ox 93 99 98 Oxygen Delivery Method Room Air Room Air 11/26/24 18:00 11/26/24 20:00 Temperature Temperature Source Pulse Rate 77 75 Respiratory Rate Respiratory Effort Respiratory Depth Respiratory Pattern Blood Pressure 173/90 H 148/99 H Blood Pressure Mean 117 115 Pulse Ox 99 98 Oxygen Delivery Method Positive well nourished and well developed General Appearance ED: well developed and NAD HEENT Reports moist mucous membranes normocephalic and atraumatic Eyes PERRL and EOMs intact bilaterally Neck full ROM and supple Resp normal respiratory effort and clear to auscultation bilaterally Cardio regular rate, regular rhythm and no murmurs GI non-tender and non-distended Auscultation: normoactive bowel sounds Palpation: soft Back/Spine no CVA tenderness Back/Spine Narrative: Diffuse subjective midline tenderness from the sacrum all the way to the mid- thoracic spine. No severe tenderness. No other back tenderness except for the buttocks bilaterally including the ischial tuberosities. General Back: other Limited range of motion due to pain but able to sit up with assistance Extremity normal to inspection Extremity Narrative: No significant discomfort with logroll bilaterally. No deformities in the legs. Right knee without effusion or bony tenderness. He has full range of motion all ligaments are stable with short endpoints with stressing and no significant discomfort. The greater trochanters are nontender. Pelvis is stable to AP compression. Full range of motion throughout both upper extremities without limitation orpain. General Extremety ED: Negative for edema, pulses abnormal or tenderness General Extremity: Negative for edema or pulses abnormal Neuro oriented x3, CN's II-XII intact bilaterally and no sensory deficits noted Sensorium / Orientation: awake and alert Motor Exam: strength 5/5 throughout Psych mental status grossly normal and thought process normal Skin no rashes or lesions noted and no wounds MDM MDM MDM Narrative Medical decision making narrative: We obtained a CT of his abdomen/pelvis without contrast, given the diffuse pain in his back as wellas throughout the pelvis. On my interpretation there is no acute bony or intra-abdominal injury. I had staff attempt to get the patient upand weight-bear. He actually did really well. They stated that EMS said that he got up and walked to the door and greeted them after he called them and they cameto get him. Patient states that he has difficulty performing ADLs for reasons that are unclear but his is his caregiver and she is here at the hospital getting a procedure, and I do not know anydetails about that. He doesnot have a medical reason to be admitted to the hospital right now. I am havingsocial work evaluate him and intervene as able. After discussion with social work, it seems that the patient's is an inpatient in our hospitalhaving had kyphoplasty and is slated to likely go to detention facility tomorrow. Given this,they are recommending respite care for the patient. Patient is amenable to being admitted. There isno localfamily to come stay with him or pick him up, they are all out of town except for1 apparently who is local but is not involved with him and is a drug addict according to a different family member per telephone, per social work. The patient discussing that a mental health social worker told him he cannotlive alone several weeks ago, this apparently happened a month ago, similar scenario when he neededrespite care when his was not at home. They do have home health that comesoccasionally to help,but they do not have 07/02 caregiver and the patient is notsafe to be sent home by himself at this time according to social work. Therefore, discussing with hospitalist for admission. I did add labs and a urinalysis and they all look unremarkable. I also did a two-view chest x-ray which show interpretation shows a significant stomach bubble under an elevated left hemidiaphragm but otherwise unremarkable for anything acute. Lab Data Attestation: I reviewed the patient's lab results. Labs: Laboratory Results - last 24 hr 11/26/24 11/26/24 19:45 20:10 WBC 8.1 RBC 4.48 L Hgb 13.5 Hct 41.9 MCV 93.5 MCH 30.1 MCHC 32.2 RDW Std Deviation 46.7 H RDW Coeff of May 13.7 Plt Count 256 MPV 10.3 Immature Gran % (Auto) 0.200 Neut % (Auto) 80.2 H Lymph % (Auto) 14.0 L [place] % (Auto) 4.3 Eos % (Auto) 0.9 Baso % (Auto) 0.4 Absolute Neuts (auto) 6.5 Absolute Lymphs (auto) 1.13 Nucleated RBC % 0 Sodium 140 Potassium 4.0 Chloride 102 Carbon Dioxide 25.0 Anion Gap 13 BUN 16 Creatinine 0.78 Est GFR (MDRD) Non-Af 85 BUN/Creatinine Ratio 20.2 H Glucose 142 H Calcium 9.7 Urine Color Yellow Urine Clarity Clear Urine pH 7.0 Ur Specific [place] 1.010 Urine Protein 15 H Urine Glucose (UA) Normal Urine Ketones 50 H Urine Occult Blood Negative Urine Nitrite Negative Urine Bilirubin Negative Urine Urobilinogen Normal Ur Leukocyte Esterase Negative Radiography Diagnostic Testing: Clinical Impression(s) from Imaging Studies Abdomen/Pelvis CT 11/26/24 15:45 IMPRESSION: 1. Small esophageal hiatal hernia. 2. Inguinal hernias, bilaterally. 3. Colonic diverticulosis without acute diverticulitis. 4. Degenerative changes lumbar spine as described. Reading Location: [facility] Rhythm Strip Rhythm Strip: Sinus Rhythm Rate: 75 Ectopy: None Management Discussion w/another healthcare provider: Hospitalist and fibreglass lay up worker/Case management Discharge Plan Dx/Rx/DC Orders Clinical Impression: Debility, Accidental fall, Contusion of buttock, Acute lumbar myofascial strain Disposition Disposition: Acute Care Hospital [facility] What to do if you have Problems For any increased pain, shortness of breath, bleeding, nausea or vomiting, chestpain, or any unexpected problems, contact your Primary Care Provider. Call [facility] ([phone]) or report tothe closest Emergency Room. Call 911 if necessary. 11/26/242113 Cosigner Signature (if applicable): CC: Dr. Saulo Schultz MD ~ Signed [facility]05-12-2025 Radiology Diagnostic study note [facility] Imaging Services [address] [place], [place] [address] Abdomen/Pelvis without Cont MR#: [id number] Acct: [id number] Name: LINO WHEELER Rep #: [id number] : 1935 M 89 From: Lashell James MD PCP: Dr. Saulo Schultz MD Status: REG ER Study:Abdomen/Pelvis without Cont Date of Exa m: 11/26/24 Exam# [id number] Ordering Dr: Joseline Salazar MD EXAM: CT Abdomen and Pelvis Without Intravenous Contrast CLINICAL INDICATION: RABIA HIP/BACK PAIN TECHNIQUE: Axial computed tomography images of the abdomen and pelvis without intravenous contrast.This CT exam was performed using one or more of the following dose reduction techniques: automated exposure control, adjustment of the mA and/or kV according to patient size, and/or use of iterative reconstruction technique. COMPARISON: No relevant prior studies available. FINDINGS: LUNG BASES: Unremarkable. No mass. No consolidation. MEDIASTINUM: Small esophageal hiatal hernia. ABDOMEN: LIVER: Fatty infiltration of the liver. GALLBLADDER AND BILE DUCTS: Unremarkable. No calcified stones. No ductal dilation. PANCREAS: Unremarkable. No ductal dilation. SPLEEN: Unremarkable. No splenomegaly. ADRENALS: Unremarkable. No mass. KIDNEYS AND URETERS: Bilateral renal cysts. No obstructing stones. No hydronephrosis. STOMACH AND BOWEL: Colonic diverticulosis without acute diverticulitis. No obstruction. PELVIS: APPENDIX: No findings to suggest acute appendicitis. BLADDER: Unremarkable. No stones. REPRODUCTIVE: Unremarkable as visualized. ABDOMEN and PELVIS: INTRAPERITONEAL SPACE: Unremarkable. No free air. No significant fluid collection. BONES/JOINTS: Degenerative disc disease throughout the lumbar spine. Degenerative facet arthropathythroughout the lumbar spine, most prominent in the lower lumbar spine. No acute fracture. No dislocation. SOFT TISSUES: Inguinal hernias, bilaterally. VASCULATURE: Scattered calcified atherosclerotic disease of aorta. No abdominal aortic aneurysm. LYMPH NODES: Unremarkable. No enlarged lymph nodes. CT/Abdomen/Pelvis without Cont IMPRESSION: 1. Small esophageal hiatal hernia. 2. Inguinal hernias, bilaterally. 3. Colonic diverticulosis without acute diverticulitis. 4. Degenerative changes lumbar spine as described. Reading Location: [facility] CC: Dr. Dl Salazar MD; Dr. Saulo Schultz MD ~ Bisque Placer: Signed [facility]05-12-2025 Telephone encounter Note* Telephone Encounter - Antoinette Grider - 11/26/2024 10:42 AM EDT Fatemeh from [facility] calling today to notify that patient is being discharged from home care because patient is refusing care. [facility]05-12-2025 Miscellaneous Notes* Telephone Encounter - Antoinette Grider - 11/26/2024 10:42 AM EDT Fatemeh from [facility] calling today to notify that patient is being discharged from home care because patient is refusing care. documented in this encounterCh[facility] Telephone encounter Note * Telephone Encounter - Kate Melchor RN - 11/20/2024 3:50 PM EDT Called patient to triage his concern and he said he is not concerned about his safety at this time just wants to know what is wrong with his 's back. Patient states the reason he called is because he wants Dr. Schultz to prescribe him a continuous glucose monitor. He said he is not having any trouble with his sugar at home, the nurse checks it a couple times a week. Advised appointment. Patient accepted an appointment Tuesday. Scheduled. [facility]05-06-2025 Miscellaneous Notes* Telephone Encounter - Kate Melchor RN - 11/20/2024 3:50 PM EDT Called patient to triage his concern and he said he is not concerned about his safety at this time just wants to know what is wrong with his 's back. Patient states the reason he called is because he wants Dr. Schultz to prescribe him a continuous glucose monitor. He said he is not having any trouble with his sugar at home, the nurse checks it a couple times a week. Advised appointment. Patient accepted an appointment Tuesday. Scheduled. * Telephone Encounter - Johanna Selby - 11/20/2024 3:42 PM EDT Lino is calling Keyla Schultz MD today with concern regarding Multiple Concerns Safety concerns for patient now that his is in the hospital and he will be left at the home alone over night. Tried to call squad and he said that he would refuse that. He is not going any whereuntil he speaks to his sons. Patient has been identified by name and birthdate. Duration of symptoms: N/A Person calling: [facility] Was an appointment scheduled: No Closing statement: Results or non-symptom based questions: Thank you for calling [facility], your call will be returned within the next business day. Johanna Thomson documented in this encounterCh[facility]ic[facility]05-[facility] Telephone encounter Note * Telephone Encounter - Johanna Selby - 11/20/2024 3:42 PM EDT Lino is calling Keyla Schultz MD today with concern regarding Multiple Concerns Safety concerns for patient now that his is in the hospital and he will be left at the home alone over night. Tried to call ximena and he said that he would refuse that. He is not going any whereuntil he speaks to his sons. Patient has been identified by name and birthdate. Duration of symptoms: N/A Person calling: [facility] Was an appointment scheduled: No Closing statement: Results or non-symptom based questions: Thank you for calling [facility], your call will be returned within the next business day. Johanna Thomson [facility]04-30-2025 Telephone encounter Note* Telephone Encounter - Stephen Berry LPN - 11/14/2024 1:48 PM EDT Received orders from [employer]. Placed in provider's inbox for review. Route to [place] fax [facility]04-30-2025 Miscellaneous Notes* Telephone Encounter - Stephen Berry LPN - 11/14/2024 1:48 PM EDT Received orders from [employer]. Placed in provider's inbox for review. Route to [place] fax documented in this encounterCh[facility]04-29-2025 Telephone encounter Note * Telephone Encounter - Delia Chaves LPN - 11/13/2024 9:13 AM EDT Addressed in previous encounter [facility]04-29-2025 Miscellaneous Notes* Telephone Encounter - Delia Chaves LPN - 11/13/2024 9:13 AM EDT Addressed in previous encounter * Telephone Encounter - Keyla Schultz MD - 11/12/2024 5:19 PM EDT OK social service consult Keyla Schultz MD * Telephone Encounter - Akanksha Morales - 11/12/2024 1:57 PM EDT Dennise tatum [facility] is calling Keyla Schultz MD today with concern regarding HomeCare (Physical therapy/Social Work) Updated physical therapy plan of care Twice a week for 4 weeks Once a week for 2 weeks. Also asking for a social work consult to help with services, especially transportation. Patient has a pain med appointment and is concerned about how he'll get there. He is out of pain meds. Patient has been identified by name and birthdate. Duration of symptoms: N/A Person calling: Dennise Nieves [facility] Call: [phone] Ok to leave message secure VM Was an appointment scheduled: No Closing statement: Akanksha Thomson documented in this encounterCh[facility]04-28-2025 Telephone encounter Note * Telephone Encounter - Keyla Schultz MD - 11/12/2024 5:19 PM EDT OK social service consult Keyla Schultz MD [facility]04-28-2025 Telephone encounter Note* Telephone Encounter - Keyla Schultz MD - 11/12/2024 5:03 PM EDT Ok to requested services. Keyla Schultz MD [facility]04-28-2025 Miscellaneous Notes* Telephone Encounter - Keyla Schultz MD - 11/12/2024 5:03 PM EDT Ok to requested services. Keyla Schultz MD * Telephone Encounter - Ana Luisa Ash - 11/12/2024 2:59 PM EDT [facility] is calling Keyla Schultz MD today with concern regarding Patient Update ([facility]). They will see Lino twice a week for 4 weeks and then once a week for 2 weeks. They would like to add on orders for OT and a Manager Reporting. Please advise. Patient has been identified by name and birthdate. Duration of symptoms: N/A Deidre at [facility] [phone] Closing statement: Results or non-symptom based questions: Thank you for calling [facility], your call will be returned within the next business day. Ana Luisa Ash documented in this encounterCh[facility]ic[facility]04-[facility]25 Telephone encounter Note * Telephone Encounter - Stephen Berry LPN - 11/12/2024 4:40 PM EDT Called and left VM for Deidre on secure line requesting call back to discuss. [facility]04-28-2025 Miscellaneous Notes* Telephone Encounter - Stephen Berry LPN - 11/12/2024 4:40 PM EDT Called and left VM for Deidre on secure line requesting call back to discuss. * Telephone Encounter - Ana Luisa Ash - 11/12/2024 3:24 PM EDT Deidre with [facility] is calling for a nurse to please call to discuss medications. Please callher at [phone] documented in this encounterCh[facility] Telephone encounter Note * Telephone Encounter - Ana Luisa Ash - 11/12/2024 3:24 PM EDT Deidre [facility] is calling for a nurse to please call to discuss medications. Please callher at [phone] [facility]04-28-2025 Telephone encounter Note* Telephone Encounter - Ana Luisa Ash - 11/12/2024 2:59 PM EDT [facility] is calling Keyla Schultz MD today with concern regarding Patient Update ([facility]). They will see Lino twice a week for 4 weeks and then once a week for 2 weeks. They would like to add on orders for OT and a Manager Reporting. Please advise. Patient has been identified by name and birthdate. Duration of symptoms: N/A Deidre at [facility] [phone] Closing statement: Results or non-symptom based questions: Thank you for calling [facility], your call will be returned within the next business day. Ana Luisa Ash [facility]04-28-2025 Telephone encounter Note* Telephone Encounter - Akanksha Morales - 11/12/2024 1:57 PM EDT Dennise at [facility] is calling Keyla Schultz MD today with concern regarding HomeCare (Physical therapy/Social Work) Updated physical therapy plan of care Twice a week for 4 weeks Once a week for 2 weeks. Also asking for a social work consult to help with services, especially transportation. Patient has a pain med appointment and is concerned about how he'll get there. He is out of pain meds. Patient has been identified by name and birthdate. Duration of symptoms: N/A Person calling: Dennise Nieves [facility] Call: [phone] Ok to leave message secure VM Was an appointment scheduled: No Closing statement: Akanksha Thomson [facility] Work Phone: 1(379) 905-246404-25-2025 [facility] Medical Records Department [address] [place] [id number] Discharge Summary 11/09/24 1157 MR#: [id number] Acct: [id number] Name: LINO WHEELER Rep #: [id number] : 1935 89 From: Lu Coreas DO PCP: Dr. Saulo Schultz MD Status:ADM ALEX [facility] Prov[facility] Date of Admission: 10/30/24 Date of Discharge: 11/09/24 Primary Care Physician: Dr. Saulo Schultz MD Reason For Visit: FAILURE TO THRIVE, CHRONIC BACK PAIN Diagnosis Discharge Diagnosis (1) Fall from slip, trip, or stumble: Status: Acute Code(s): W01.0XXA - Fall on same level from slipping, tripping and stumbling without subsequent striking against object, initial encounter (2) Debility: Status: Acute Code(s): R53.81 - Other malaise (3) Spinal stenosis of lumbar region with radiculopathy: Status: Acute Code(s): M48.061 - Spinal stenosis, lumbar region without neurogenic claudication; M54.16 - Radiculopathy, lumbar region Medications at Discharge Home Medications allopurinol 300 mg tablet 300 mg PO DAILY 10/15/24 amitriptyline 25 mg tablet 25 mg PO DAILY 10/15/24 insulin glargine 100 unit/mL (3 mL) subcutaneous pen (Lantus Solostar U-100 Insulin) unit subcut 10/15/24 levetiracetam 500 mg tablet 500 mg PO BID 10/15/24 sitagliptin phosphate 100 mg tablet (Januvia) 100 mg PO DAILY 10/15/24 tamsulosin 0.4 mg capsule 0.4 mg PO DAILY 10/15/24 hydroxyzine pamoate 25 mg capsule 25 mg PO QHS PRN insomnia #30 CAPSULES 10/17/24 oxymetazoline 0.05 % nasal spray (12 Hour Nasal Relief [place]) 2 spray intranasal BID PRN Nasal congestion 30 days #0 mL 10/17/24 sennosides 8.6 mg-docusate sodium 50 mg tablet (Stimulant Laxative Plus) 2 tab PO BID #0 tabs 10/17/24 insulin lispro 100 unit/mL subcutaneous half-unit pen (Humalog Andrews KwyvettePen (U-100)) See Protocol subcut TIDCM #15 mL 10/18/24 rosuvastatin 10 mg tablet 10 mg PO DAILY 1 month #30 tabs 10/18/24 metoprolol tartrate 25 mg tablet 25 mg PO BID #60 tabs 11/09/24 oxycodone myristate 18 mg capsule sprinkle extended release 12hr(DON'T CRUSH) (Xtampza ER) 18 mg PO BID 3 days #6 ea 11/09/24 Hospital Course Procedures - (Lumbar spine plain films/CTA chest) Summary of Care Provided Minutes Spent on Discharge: 38 Hospital Course: Mr. Wheeler is an 89-year-old white male who presented to the emergency department at [facility] on 10/30/2024 with a chief complaint of failure to thrive. He had recently been admitted and discharged on 10/18/2024 at which time he refused to be placed. After going home he was unable to care for himself. He has chronic pain issues and sees pain management. He had been getting injections and is on chronic pain medications for spinal stenosis. It was reported that he was getting weaker and unable to care for himself so family brought him in for placement. At the end of admission his was also in a nursing facility. Vital signs on presentation showed a temperature of 98, heart rate 103, respiratory rate was 18, blood pressure was 143/88 and pulse ox was 94% on room air. CBC was unremarkable. D-dimer was slightly elevated at 1.28. Chemistry panel was unremarkable other than hyperglycemia at 151 he is a known diabetic at baseline. Plain films of the back showed minimal loss of height at the superior endplate of L1 but was otherwise unremarkable for any acute findings. He also was noted to have a large amount of fecal material in the colon. Given his D-dimer elevation a CT of his chest was performed and showed no evidence of PE, elevated left hemidiaphragm with some left lower lobe atelectasis. He was admitted to the medical surgical floor and physical and Occupational Therapy were consulted. Initially did very poorly and had ongoing therapy services daily. Prior to placement, due to a history of seizure disorder and the patient being on [place] a state PASRR screen was required and positive therefore the [facility] department of developmental disability has had to clear him for discharge. As of 11/09/2024 the patient was never cleared for discharge and his had been discharged from detention facility so he refused placement. He was insisting on discharge home and his son was notified and agreeable at that time. Patient was discharged home in stable condition on 11/09/2024. Patient was able to walk over 200 feet with therapy in the days prior to discharge home so clinically he had improved and we are hopeful that he can maintain strength and avoid readmission. However, his risk overall for readmission is extremely high given his functional issues related to a spinal stenosis and other comorbidities. Patient did have some intermittent sinus tachycardia with rates in the low 100s so we did start him on metoprolol 25 mg p.o. twice daily and this seemed to mitigate that issue. Prescription for this was sent on discharge and a prescri (more content not included)...[facility]04-16-2025 Telephone encounter Note* Telephone Encounter - Stephen Berry LPN - 10/31/2024 3:59 PM EDT Received orders from [employer]. Placed in provider's inbox for review. Route to [place] fax [facility]04-16-2025 Miscellaneous Notes* Telephone Encounter - Stephen Berry LPN - 10/31/2024 3:59 PM EDT Received orders from [employer]. Placed in provider's inbox for review. Route to [place] fax documented in this encounterCh[facility]04-[facility]-2025 Telephone encounter Note * Telephone Encounter - Stephen Berry LPN - 10/31/2024 2:20 PM EDT [facility] Placed in provider's inbox for review. Route to MA scanning [facility]04-16-2025 Miscellaneous Notes* Telephone Encounter - Stephen Berry LPN - 10/31/2024 2:20 PM EDT [facility] Placed in provider's inbox for review. Route to [place] scanning documented in this encounterCh[facility]ic[facility]04-15-2025 Discharge summary Author Dl Salazar [facility] Note Date/Time October 30, 2024 11: 29am [facility] Medical Records Department [address] [place] [address] Emergency Department Summary 10/30/24 MR#: [id number] Acct: [id number] Name: LINO WHEELER Rep #:[id number] : 1935 89 From: Dl Salazar MD PCP: Dr. Saulo Schultz MD Status:[facility] ER Location: ED HPI HPI - Fall History of Present Illness Chief Complaint: Fall Informant: patient and EMS Narrative Narrative: 89-year-old male presenting with debility that has been progressive, he had a fall last night due to his foot getting stuck under his bed when he tried to getinto it, causing him to fall and hurt his low back. He has chronic low back pain, he has had surgery in his back, he sees Dr. Garnica for pain management where he gets injections and pain medications, he has spinal stenosis and he states he is legs have progressively been becoming weaker over the last couple months, the right side is always been worse than the left, along with some time sciatica pain shooting down his right side which has not been the case since last night, denies any numbness or saddle anesthesia. Over the last couple weeks he has had a little bit of urinary incontinence but he denies any bowel retention or incontinence or problems having bowel movements. He was here couple of weeks ago for a fall and similar injury to his low back, the providersand family were trying to encourage him to be placed in detention or assisted living, which is where his was just recently placed and it seems she was the primary dust collector attendant but the patient has been very resistant until now and states that he is not able to take care of himself and now he needs help andhe needs to go to the same place his is at. Apparently, he is upset because someone called Adult Protective Services on him, presumably one of his children according to the patient. [facility] Medical History Failure to thrive History of diabetes mellitus, type II History of seizure disorder Gout Drooping eyelid Home Medications ?Medication ?Instructions ?Recorded ?Last Taken ?Type allopurinol 300 mg tablet 300 mg PO DAILY 10/15/24 Unk nown History amitriptyline 25 mg tablet 25 mg PO DAILY 10/15/24 Unk nown History insulin glargine 100 unit/mL (3 unit subcut 10/15/24 U nknown History mL) subcutaneous pen (Lantus Solostar U-100 Insulin) Held on 10/17/24. Instructions: Hold if glucose less than 130 mg/dl levetiracetam 500 mg tablet 500 mg PO BID 10/15/24 Unk nown History oxycodone myristate 18 mg capsule 18 mg PO BID 5 Unknown History sprinkle extended release 12hr(DON'T CRUSH) (Xtampza ER) rivaroxaban 20 mg tablet (Xarelto) 20 mg PO DAILY 09/17 08/11 Unknown History sitagliptin phosphate 100 mg 100 mg PO DAILY 10/15/24 Unknown History tablet (Januvia) tamsulosin 0.4 mg capsule 0.4 mg PO DAILY 10/15/24 Unk nown History hydroxyzine pamoate 25 mg capsule 25 mg PO QHS PRN ins omnia #30 10/17/24 Unknown Rx CAPSULES oxymetazoline 0.05 % nasal spray 2 spray intranasal BI D PRN Nasal 10/17/24 Unknown Rx (12 Hour Nasal Relief [place]) congestion 30 days #0 mL sennosides 8.6 mg-docusate sodium 2 tab PO BID #0 tabs 10/17/24 Unknown Rx 50 mg tablet (Stimulant Laxative Plus) insulin lispro 100 unit/mL See Protocol subcut TIDCM # 15 mL 10/18/24 Unknown Rx subcutaneous half-unit pen (Humalog Andrews KwikPen (U-100)) rosuvastatin 10 mg tablet 10 mg PO DAILY 1 month #30 t abs 10/18/24 Unknown Rx Allergy/AdvReac Type Severity Reaction Status Date / Time Penicillins Allergy Mild Hives Verified 10/30/24 09:38 hydromorphone (From Dilaudid) Allergy Hallucinati Verified 10/30/24 09:38 ons ketorolac (From Toradol) Allergy Itching Verified 10/30/24 09:38 Family History Father Tuberculosis Surgical History History of back surgery Hx of laminectomy Social History household members: spouse housing: house Smoking Status: Never smoker Smokeless tobacco user: chewing tobacco alcohol intake: never what type of physical activity do you participate in: none do you feel safe at home: Yes ROS ROS ED Constitutional Constitutional ED: Denies chills or fever(s) Eyes Eyes: Reports other Details: Chronically drooping right eyelid ; Denies change in vision or diplopia ENT ENT ED: Denies rhinorrhea or sore throat Cardiovascular Cardiovascular: Denies chest pain or palpitations Respiratory/Chest Respiratory/Chest: Denies cough or dyspnea Gastrointestinal Gastrointestinal: Denies abdominal pain, diarrhea, nausea or vomiting Genitourinary Genitourinary ED: Denies dysuria or hematuria Musculoskeletal Musculoskeletal: Reports back pain; Denies neck pain Integumentary Denies abscess or rash Neurologic Neurologic: Reports weakness; Denies headache(s) or paresthesias Psychiatric Psychiatric: Denies anxiety or suicidal thoughts EXAM Physical Exam Const Vital Signs: 10/30/24 09:34 10/30/24 09:39 Temperature 98 F Temperature Source Oral Pulse Rate 103 H Respiratory Rate 18 Respiratory Effort Normal Non-Labored Respiratory Depth Normal Respiratory Pattern Normal Blood Pressure 143/88 H Blood Pressure Mean 106 Pulse Ox 94 Oxygen Delivery Method Room Air Positive well nourished and well developed General Appearance ED: well developed and NAD HEENT Reports dry mucous membranes normocephalic and atraumatic Mouth ED: Yes dry mucous membranes Mouth: dry mucous membranes Eyes PERRL and EOMs intact bilaterally Eyes Narrative: Right ptosis, patient has a piece of tape holding his eyelid up Neck full ROM and supple Resp normal respiratory effort and clear to auscultation bilaterally Cardio regular rate and regular rhythm GI non-tender and non-distended Auscultation: normoactive bowel sounds Palpation: soft Back/Spine no CVA tenderness Back/Spine Narrative: Some diffuse low back tenderness no obvious signs of trauma no palpable step- off, well-healed surgical scar lumbar General Back: other Able to sit up with little assistance, limited range of motion due to pain in the lumbar area Extremity normal to inspection General Extremety ED: Negative for edema, pulses abnormal or tenderness General Extremity: Negative for edema or pulses abnormal Neuro oriented x3, CN's II-XII intact bilaterally and no sensory deficits noted Neuro Narrative: Symmetrically weak in both lower extremities compared with the upper extremities. Chronic per patient. Diminished reflexes, no clonus, toes downgoing bilaterally. Reflexes are better in the upper extremities. No sensory deficits. Ana Coma Scale: document GCS findings Spontaneous Obeys Commands Oriented 15 Sensorium / Orientation: awake and alert Psych mental status grossly normal and thought process normal Skin no rashes or lesions noted and no wounds MDM MDM MDM Narrative Medical decision making narrative: Obtained three-view x-ray series of the lumbar spine which on my interpretation show chronic changes and narrowed disc spaces but no acute fractures. While waiting for labs and urinalysis his pain was treated with morphine and prophylactic Zofran. He is not have any signs of head injury nor did he hit hishead according to him, and he is mentating well so I do not think he needs advanced imaging of that or any other part of his body right now based on my exam. Labs noted and unremarkable. Waiting for the patient to provide us urinespecimen, I think we can wait for a clean-catch and I will discuss with hospitalist for admission for further evaluation. Lab Data Attestation: I reviewed the patient's lab results. Labs: Laboratory Results - last 24 hr 10/30/24 10:03 WBC 8.9 RBC 4.65 Hgb 14.4 Hct 43.4 MCV 93.3 MCH 31.0 MCHC 33.2 RDW Std Deviation 48.4 H RDW Coeff of May 14.3 Plt Count 304 MPV 9.5 Immature Gran % (Auto) 0.300 Neut % (Auto) 77.6 H Lymph % (Auto) 13.9 L [place] % (Auto) 7.0 Eos % (Auto) 0.8 Baso % (Auto) 0.4 Absolute Neuts (auto) 6.9 Absolute Lymphs (auto) 1.24 Nucleated RBC % 0 Sodium 140 Potassium 4.1 Chloride 101 Carbon Dioxide 26.7 Anion Gap 12 BUN 12 Creatinine 0.83 Estim Creat Clear Calc 65.35 Est GFR (MDRD) Non-Af 84 BUN/Creatinine Ratio 13.9 Glucose 151 H Calcium 10.0 Radiography Diagnostic Testing: Clinical Impression(s) from Imaging Studies Lumbar Spine X-Ray 10/30/24 09:42 IMPRESSION: ADVANCED DEGENERATIVE CHANGES OF THE LUMBAR SPINE. Minimal loss of height of the superior endplate of the L1 vertebrae. Reading Location: [place] [address] Management Discussion w/another healthcare provider: Hospitalist Discharge Plan Dx/Rx/DC Orders Clinical Impression: Debility, Acute exacerbation of chronic low back pain, Fall from slip, trip, orstumble Disposition Disposition: Acute Care Hospital [facility] What to do if you have Problems For any increased pain, shortness of breath, bleeding, nausea or vomiting, chestpain, or any unexpected problems, contact your Primary Care Provider. Call [facility] ([phone]) or report to the closest Emergency Room. Call 911 if necessary. 10/30/24 1129 <Electronically signed by Dl Salazar MD> Cosigner Signature (if applicable): CC: Dr. Saulo Schultz MD ~ Signed [facility] Work Phone: 1(677) 422-309304-15-2025 Telephone encounter Note* Telephone Encounter - Stephen Berry LPN - 10/30/2024 12:16 PM EDT Received ED visit summary for fall from [facility]. Placed in provider's inbox for review. Route to MA scanning [facility]04-15-2025 Miscellaneous Notes* Telephone Encounter - Stephen Berry LPN - 10/30/2024 12:16 PM EDT Received ED visit summary for fall from [facility]. Placed in provider's inbox for review. Route to MA scanning documented in this encounterCh[facility]04-15-2025 Discharge summary [facility] Medical Records Department [address] [place] [address] Emergency Department Summary 10/30/24 MR#: [id number] Acct: [id number] Name: LINO WHEELER Rep #:[id number] : 1935 89 From: Dl Salazar MD PCP: Dr. Saulo Schultz MD Status:REG ER Location: ED HPI HPI - Fall History of Present Illness Chief Complaint: Fall Informant: patient and EMS Narrative Narrative: 89-year-old male presenting with debility that has been progressive, he had a fall last night due to his foot getting stuck under his bed when he tried to getinto it, causing him to fall and hurt hislow back. He has chronic low back pain, he has had surgery in his back, he sees Dr. Garnica for painmanagement where he gets injections and pain medications, he has spinal stenosis and he states he is legs have progressively been becoming weaker over the last couple months, the right side is alwaysbeen worse than the left, along with some time sciatica pain shooting down his right side which hasnot been the case since last night, denies any numbness or saddle anesthesia. Over the last couple weeks he has had a little bit of urinary incontinence but he denies any bowel retention or incontinence or problems having bowel movements. He was here couple of weeks ago for a fall and similar injury to his low back, the providersand family were trying to encourage him to be placed in detention or assisted living, which is where his was just recently placed and it seems she was the brittni evans dust collector attendant but the patient has been very resistant until now and states that he is not able to take care of himself and now he needs help andhe needs to go to the same place his is at. Apparently, he is upset because someone called Adult Protective Services on him, presumably one of his children according to the patient. [facility] Medical History Failure to thrive History of diabetes mellitus, type II History of seizure disorder Gout Drooping eyelid Home Medications ?Medication ?Instructions ?Recorded ?Last Taken ?Type allopurinol 300 mg tablet 300 mg PO DAILY 10/15/24 Unk nown History amitriptyline 25 mg tablet 25 mg PO DAILY 10/15/24 Unk nown History insulin glargine 100 unit/mL (3 unit subcut 10/15/24 U nknown History mL) subcutaneous pen (Lantus Solostar U-100 Insulin) Held on 10/17/24. Instructions: Hold if glucose less than 130 mg/dl levetiracetam 500 mg tablet 500 mg PO BID 10/15/24 Unk nown History oxycodone myristate 18 mg capsule 18 mg PO BID 5 Unknown History sprinkle extended release 12hr(DON'T CRUSH) (Xtampza ER) rivaroxaban 20 mg tablet (Xarelto) 20 mg PO DAILY 09/17 08/11 Unknown History sitagliptin phosphate 100 mg 100 mg PO DAILY 10/15/24 Unknown History tablet (Januvia) tamsulosin 0.4 mg capsule 0.4 mg PO DAILY 10/15/24 Unk nown History hydroxyzine pamoate 25 mg capsule 25 mg PO QHS PRN ins omnia #30 10/17/24 Unknown Rx CAPSULES oxymetazoline 0.05 % nasal spray 2 spray intranasal BI D PRN Nasal 10/17/24 Unknown Rx (12 Hour Nasal Relief [place]) congestion 30 days #0 mL sennosides 8.6 mg-docusate sodium 2 tab PO BID #0 tabs 10/17/24 Unknown Rx 50 mg tablet (Stimulant Laxative Plus) insulin lispro 100 unit/mL See Protocol subcut TIDCM # 15 mL 10/18/24 Unknown Rx subcutaneous half-unit pen (Humalog [place] (U-100)) rosuvastatin 10 mg tablet 10 mg PO DAILY 1 month #30 t abs 10/18/24 Unknown Rx Allergy/AdvReac Type Severity Reaction Status Date / Time Penicillins Allergy Mild Hives Verified 10/30/24 09:38 hydromorphone (From Dilaudid) Allergy Hallucinati Verified 10/30/24 09:38 ons ketorolac (From Toradol) Allergy Itching Verified 10/30/24 09:38 Family History Father Tuberculosis Surgical History History of back surgery Hx of laminectomy Social History household members: spouse housing: house Smoking Status: Never smoker Smokeless tobacco user: chewing tobacco alcohol intake: never what type of physical activity do you participate in: none do you feel safe at home: Yes ROS ROS ED Constitutional Constitutional ED: Denies chills or fever(s) Eyes Eyes: Reports other Details: Chronically drooping right eyelid ; Denies change in vision or diplopia ENT ENT ED: Denies rhinorrhea or sore throat Cardiovascular Cardiovascular: Denies chest pain or palpitations Respiratory/Chest Respiratory/Chest: Denies cough or dyspnea Gastrointestinal Gastrointestinal: Denies abdominal pain, diarrhea, nausea or vomiting Genitourinary Genitourinary ED: Denies dysuria or hematuria Musculoskeletal Musculoskeletal: Reports back pain; Denies neck pain Integumentary Denies abscess or rash Neurologic Neurologic: Reports weakness; Denies headache(s) or paresthesias Psychiatric Psychiatric: Denies anxiety or suicidal thoughts EXAM Physical Exam Const Vital Signs: 10/30/24 09:34 10/30/24 09:39 Temperature 98 F Temperature Source Oral Pulse Rate 103 H Respiratory Rate 18 Respiratory Effort Normal Non-Labored Respiratory Depth Normal Respiratory Pattern Normal Blood Pressure 143/88 H Blood Pressure Mean 106 Pulse Ox 94 Oxygen Delivery Method Room Air Positive well nourished and well developed General Appearance ED: well developed and NAD HEENT Reports dry mucous membranes normocephalic and atraumatic Mouth ED: Yes dry mucous membranes Mouth: dry mucous membranes Eyes PERRL and EOMs intact bilaterally Eyes Narrative: Right ptosis, patient has a piece of tape holding his eyelid up Neck full ROM and supple Resp normal respiratory effort and clear to auscultation bilaterally Cardio regular rate and regular rhythm GI non-tender and non-distended Auscultation: normoactive bowel sounds Palpation: soft Back/Spine no CVA tenderness Back/Spine Narrative: Some diffuse low back tenderness no obvious signs of trauma no palpable step- off, well-healed surgical scar lumbar General Back: other Able to sit up with little assistance, limited range of motion due to pain in the lumbar area Extremity normal to inspection General Extremety ED: Negative for edema, pulses abnormal or tenderness General Extremity: Negative for edema or pulses abnormal Neuro oriented x3, CN's II-XII intact bilaterally and no sensory deficits noted Neuro Narrative: Symmetrically weak in both lower extremities compared with the upper extremities. Chronic per patient. Diminished reflexes, no clonus, toes downgoing bilaterally. Reflexes are better in the upper extremities. No sensory deficits. Ana Coma Scale: document GCS findings Spontaneous Obeys Commands Oriented 15 Sensorium / Orientation: awake and alert Psych mental status grossly normal and thought process normal Skin no rashes or lesions noted and no wounds MDM MDM MDM Narrative Medical decision making narrative: Obtained three-view x-ray series of the lumbar spine which on my interpretation show chronic changes and narrowed disc spaces but no acute fractures. While waiting for labs and urinalysis his pain was treated with morphine and prophylactic Zofran. He is not have any signs of head injury nor did he hit hishead according to him, and he is mentating well so I do not think he needs advanced imaging of that or any other part of his body right now based on my exam. Labs noted and unremarkable. Waiting for the patient to provide us urinespecimen, I think we can wait for a clean-catch and I will discuss with hospitalist for admission for further evaluation. Lab Data Attestation: I reviewed the patient's lab results. Labs: Laboratory Results - last 24 hr 10/30/24 10:03 WBC 8.9 RBC 4.65 Hgb 14.4 Hct 43.4 MCV 93.3 MCH 31.0 MCHC 33.2 RDW Std Deviation 48.4 H RDW Coeff of May 14.3 Plt Count 304 MPV 9.5 Immature Gran % (Auto) 0.300 Neut % (Auto) 77.6 H Lymph % (Auto) 13.9 L [place] % (Auto) 7.0 Eos % (Auto) 0.8 Baso % (Auto) 0.4 Absolute Neuts (auto) 6.9 Absolute Lymphs (auto) 1.24 Nucleated RBC % 0 Sodium 140 Potassium 4.1 Chloride 101 Carbon Dioxide 26.7 Anion Gap 12 BUN 12 Creatinine 0.83 Estim Creat Clear Calc 65.35 Est GFR (MDRD) Non-Af 84 BUN/Creatinine Ratio 13.9 Glucose 151 H Calcium 10.0 Radiography Diagnostic Testing: Clinical Impression(s) from Imaging Studies Lumbar Spine X-Ray 10/30/24 09:42 IMPRESSION: ADVANCED DEGENERATIVE CHANGES OF THE LUMBAR SPINE. Minimal loss of height of the superior endplate of the L1 vertebrae. Reading Location: [place] [address] Management Discussion w/another healthcare provider: Hospitalist Discharge Plan Dx/Rx/DC Orders Clinical Impression: Debility, Acute exacerbation of chronic low back pain, Fall from slip, trip, orstumble Disposition Disposition: Acute Care Hospital [facility] What to do if you have Problems For any increased pain, shortness of breath, bleeding, nausea or vomiting, chestpain, or any unexpected problems, contact your Primary Care Provider. Call [facility] ([phone]) or report tothe closest Emergency Room. Call 911 if necessary. 10/30/24 1129 Cosigner Signature (if applicable): CC: Dr. Saulo Schultz MD ~ Signed [facility]04-15-2025 Radiology Diagnostic study note [facility] Imaging Services [address] [place] [address] Lumbar Spine 2 or 3 Views MR#: [id number] Acct: [id number] Name: LINO WHEELER Rep #: [id number] : 1935 M 89 From: Javan Culp MD PCP: Dr. Saulo Schultz MD Status: REG ER Study:Lumbar Spine 2 or 3 Views Date of Exam: 10/30/24 Exam# [id number] Ordering Dr: Joseline Salazar MD PROCEDURE: LUMBAR SPINE 2 OR 3 VIEWS 10/30/2024 REASON FOR EXAM: Low back pain following recent falls. TECHNIQUE: 3 view(s) of the lumbar spine COMPARISON: None FINDINGS: Vertebrae: Spondylosis. Minimal loss of height of the superior endplate of the L1 vertebrae. Discs: Advanced multilevel disc space narrowing with endplate osteophytes. Alignment: Mild dextroscoliosis. Other: Large amount of fecal material is seen in the colon. There is gaseous distention of the stomach. RAD/Lumbar Spine 2 or 3 Views IMPRESSION: ADVANCED DEGENERATIVE CHANGES OF THE LUMBAR SPINE. Minimal loss of height of the superior endplate of the L1 vertebrae. Reading Location: [place] [address] CC: Dr. Dl Salazar MD; Dr. Saulo Schultz MD ~ Bisque Placer: Signed [facility]04-11-2025 Telephone encounter Note* Telephone Encounter - Layla Johnson RN - 10/26/2024 1:40 PM EDT ALEXIS Chicas from [facility] on nurse line. Out to visit patient for initial assessment, noted to have elevated HR. Patient reports SOB in the morning that dissipates Asymptomatic; denies chest pain, heaviness, numbness/tingling HR 115-120 BP 138/86 RR 18 O2 96-97% Temp 96.6 Patient had to cancel PCP appointment for today, d/t transportation [employer] asking for updated status on home care orders detention, PT, OT, SW. Call back number [phone] Please advise [facility]04-11-2025 Miscellaneous Notes* Telephone Encounter - Layla Johnson RN - 10/26/2024 1:40 PM EDT ALEXIS Chicas from [facility] on nurse line. Out to visit patient for initial assessment, noted to have elevated HR. Patient reports SOB in the morning that dissipates Asymptomatic; denies chest pain, heaviness, numbness/tingling HR 115-120 BP 138/86 RR 18 O2 96-97% Temp 96.6 Patient had to cancel PCP appointment for today, d/t transportation [employer] asking for updated status on home care orders detention, PT, OT, SW. Call back number [phone] Please advise [facility] Telephone encounter Note * Telephone Encounter - Delia Chaves LPN - 10/19/2024 12:43 PM EDT Received 10/19/2024 from [facility]. Placed in provider's inbox for review. Route to [place] for scanning. Failure to thrive. [facility]04-04-2025 Miscellaneous Notes* Telephone Encounter - Delia Chaves LPN - 10/19/2024 12:43 PM EDT Received 10/19/2024 from [facility]. Placed in provider's inbox for review. Route to [place] for scanning. Failure to thrive. [facility] Telephone encounter Note * Telephone Encounter - Delia Chaves LPN - 10/19/2024 10:47 AM EDT Helena aware that Dr Schultz will follow. She will remind patient that he needs to keep his 10/26/2024 appointment to be compliant with medicare. [facility]04-04-2025 Miscellaneous Notes* Telephone Encounter - Delia Chaves LPN - 10/19/2024 10:47 AM EDT Helena aware that Dr Schultz will follow. She will remind patient that he needs to keep his 10/26/2024 appointment to be compliant with medicare. * Telephone Encounter - Cesar Murray APRN.CNP - 10/18/2024 4:44 PM EDT Yes, Dr. Schultz will follow Cesar Murray APRN.CNP * Telephone Encounter - Janet Sharma - 10/18/2024 1:32 PM EDT Lino is a patient of Keyla Schultz MD today [facility], Intake Dept called from [facility] to confirm the doctor will follow and sign for [facility] services: nursing, PT, OT, SW. Please call back toconfirm. The patient is discharging tomorrow. Patient has been identified by name and birthdate. was an appointment scheduled: No Closing statement: Results or non-symptom based questions: Thank you for calling [facility], your call will be returned within the next business day. Janet Thomson documented in [facility]Ch[facility]04-[facility]-2025 Telephone encounter Note * Telephone Encounter - Cesar Murray APRN.CNP - 10/18/2024 4:44 PM EDT Yes, Dr. Schultz will follow Cesar Murray APRN.CNP [facility]04-03-2025 Discharge summary Author Sriram Stroud [facility] Note Date/Time October 18, 2024 3:11 pm [facility] Medical Records Department [address] [place] [address] Discharge Summary 10/18/24 1405 MR#: [id number] Acct: [id number] Name: LINO WHEELER Rep #:[id number] : 1935 89 From: Sriram Burks PCP: Dr. Saulo Schultz MD Status:ADM ALEX Location: [place] [address] Providers Date of Admission: 10/15/24 Date of Discharge: 10/18/24 Primary Care Physician: Dr. Saulo Schultz MD Reason For Visit: FTT Diagnosis Discharge Diagnosis (1) Failure to thrive: Status: Acute Plan 89-year-old gentleman was admitted because of not able to take care of himself, recurrent fall, decreased equilibrium and steady gait. # Failure to thrive/inability to care for self -Family very concerned about patient's ability to care for self -PT/OT -Case management and social work consults 10/16: Patient will need fci and subacute rehab. 10/18: Patient adamant that he wants to go home. Patient is a smoker trying to convince through his . Patient states her granddaughter is not power of deputy county attorney and his son who is current power of deputy county attorney has health issues himself. Patient not able to take care of his medications. # Chronic pain secondary to lumbar stenosis with multiple lumbar surgeries -Continue patient's home regimen while admitted #Type 2 diabetes mellitus -Glucose was 124 in ED. Glucose 109 BMP. Accu-Cheks every 6 hours. Hypoglycemia protocol ordered 10/18: Glucose is 157. Prescription given for Humalog sliding scale insulin and atorvastatin. 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 Discharge follow-up instructions completed. Discharge process discussed with the patient and all questions wereanswered to patient's satisfaction. Follow with PCP in 1 to 2 weeks Total time spent, exact 35 minutes on discharge meds reconciliation, examination, coordination of care with nurses and ancillary staff, review of imaging and blood test and discussion with the patient on follow-up instructions. Medications at Discharge Home Medications allopurinol 300 mg tablet 300 mg PO DAILY 10/15/24 amitriptyline 25 mg tablet 25 mg PO DAILY 10/15/24 insulin glargine 100 unit/mL (3 mL) subcutaneous pen (Lantus Solostar U-100 Insulin) unit subcut 10/15/24 Held on 10/17/24. Instructions: Hold if glucose less than 130 mg/dl levetiracetam 500 mg tablet 500 mg PO BID 10/15/24 oxycodone myristate 18 mg capsule sprinkle extended release 12hr(DON'T CRUSH) (Xtampza ER) 18 mg PO BID 10/15/24 rivaroxaban 20 mg tablet (Xarelto) 20 mg PO DAILY 10/15/24 sitagliptin phosphate 100 mg tablet (Januvia) 100 mg PO DAILY 10/15/24 tamsulosin 0.4 mg capsule 0.4 mg PO DAILY 10/15/24 hydroxyzine pamoate 25 mg capsule 25 mg PO QHS PRN insomnia #30 CAPSULES 10/17/24 oxymetazoline 0.05 % nasal spray (12 Hour Nasal Relief [place]) 2 spray intranasalBID PRN Nasal congestion 30 days #0 mL 10/17/24 sennosides 8.6 mg-docusate sodium 50 mg tablet (Stimulant Laxative Plus) 2 tab PO BID #0 tabs 10/17/24 insulin lispro 100 unit/mL subcutaneous half-unit pen (Humalog Andrews KwikPen (U-100)) See Protocol subcut TIDCM #15 mL 10/18/24 rosuvastatin 10 mg tablet 10 mg PO DAILY 1 month #30 tabs 10/18/24 Physical Exam Narrative Seen and examined. No acute issues. Patient refusing to go to SNF. Patient has difficulty in ambulation, recurrent fall 2 falls in last 1 week. Unsteady gait and poor balance and equilibrium Physical exam General: Alert, Oriented x3, Cooperative HEENT: Atraumatic, PERRLA, EOMI, Normocephalic Oral: No Gingival or Mucosal Lesions/ Ulcerations Neck: Supple, No JVD, Negative Carotid Bruits Chest wall/Lungs: Air entry diminished in bilateral lung bases. No crepitation/rhonchi Cardiovascular: Regular rate, Regular Rhythm, Normal S1, Normal S2, systolic murmur Abdomen: Bowel Sounds Present, Soft, Non Tender, Non-Distended : No dysuria. No renal angle tenderness. No suprapubic tenderness. Extremities: No edema, Capillary Refill Less than 3 Seconds Skin: No rashes, No breakdown Musculoskeletal: No Tenderness to Palpation of Joints or Extremities. Muscle power 4/5 at major joints. ROM restricted knee joints. Neurological: Cranial nerves II-XII grossly intact, DTR 2+/4. No acute focal neurological deficit. Psych/Mental Status: Normal Affect, Appropriate. Weight / BMI Weight Weight: 190 lb 4.143 oz Body Mass Index (BMI) 28.0 ABG / Lab / Microbiology Data 10/16/24 06:56 10/16/24 06:56 Laboratory: Laboratory Results - last 24 hr 10/17/24 16:50: POC Glucose 172 H 10/17/24 21:56: POC Glucose 133 H 10/18/24 06:55: POC Glucose 129 H 10/18/24 11:10: POC Glucose 157 H D/C Instructions DC O2, CPAP, BIPAP Needs Home O2 Discharge instructions: No Meaningful Use Info Meaningful Use Meaningful Use Diagnoses (Choose all that apply): None applicable Ischemic Stroke Statin Dosing Therapy Reference: STATIN DOSE THERAPY REFERENCE: * Patients > 75 years receive moderate or high dose statin therapy. * Patients 75 years or YOUNGER should receive HIGH intensity statin dose unless contraindicated. You will be required to document reason for non-treatment if statin daily dose does not meet guidelines. HIGH DOSE STATIN THERAPY DAILY Atorvastatin > than or = to 40 mg Rosuvastatin > than or = to 20 mg Amlodipine + Atorvastatin > than or = to 2.5/40 mg Ezetimibe + Simvastatin 10/80 mg Simvastatin 80mg Discharge Plan Admission Admit Date/Time: 10/15/24 18:29 Primary Reason for Your Visit: Failure to thrive Attending Provider: Sriram Stroud Primary Care Provider: Saulo Schultz Consulting Providers: Gemma Nava Instructions Patient Instructions: ED Diabetes- Overview Additional Instructions / Restrictions: Follow-up with your PCP. Return for any other concerns. Discharge Orders/Prescriptions Prescriptions: New sennosides-docusate sodium [Stimulant Laxative Plus] 8.6-50 mg Tablet 2 tab PO BID Qty: 0 0RF rosuvastatin 10 mg tablet 10 mg PO DAILY 30 Days Qty: 30 2RF insulin lispro [Humalog Andrews KwikPen U-100] 100 unit/mL insulin pen, half-unit See Protocol subcut TIDCM Qty: 15 3RF Protocol: 3. Sliding Scale Insulin Med Dosing Condition: 150-189 mg/dl = 1 unit Condition: 190-229 mg/dl = 2 units Condition: 230-269 mg/dl = 3 units Condition: 270-309 mg/dl = 4 units Condition: 310-349 mg/dl = 5 units Condition: 350-399 mg/dl = 6 units Condition: 400-449 mg/dl = 7 units Condition: Greater than 449 call physician Protocol Text: Suggested for: - Patients on Total Daily Insulin Dose of 37-55 units - Obese, infected, or steroid patients MEDIUM DOSING ALGORITHIM Rx Instructions: Call PCP if Glucose <70 or > 400 Continued levetiracetam 500 mg tablet 500 mg PO BID Xtampza ER 18 mg cap,sprinkl,ER12hr(DONT CRUSH) 18 mg PO BID Rx Instructions: must administer with a meal/food Januvia 100 mg tablet 100 mg PO DAILY amitriptyline 25 mg tablet 25 mg PO DAILY tamsulosin 0.4 mg capsule 0.4 mg PO DAILY Xarelto 20 mg tablet 20 mg PO DAILY Rx Instructions: must administer with evening meal allopurinol 300 mg tablet 300 mg PO DAILY Changed hydroxyzine pamoate 25 mg capsule 25 mg PO QHS PRN (Reason: insomnia) Qty: 30 0RF oxymetazoline [12 Hour Nasal Relief [place]] 0.05 % spray,non-aerosol 2 spray intranasal BID PRN (Reason: Nasal congestion) 30 Days Qty: 0 0RF Held insulin glargine [Lantus Solostar U-100 Insulin] 100 unit/mL (3 mL) insulin pen subcut Hold Instructions: Hold if glucose less than 130 mg/dl Patient Comments: unknown dosage Discontinued rosuvastatin 10 mg tablet 10 mg PO QHS Referrals / Follow Up: Saulo Schultz MD [Primary Care Provider] - Saulo Schultz MD [[facility]] - 5-7 Days Disposition Disposition (needs filled in before D/C Order can be placed): Home Health Service Charges/Coding Visit Charges Inpatient E&M: 07624 Disch Hosp >30min 10/18/24 1511 <Electronically signed by Sriram Stroud MD> Cosigner Signature (if applicable): CC: Dr. Saulo Schultz MD; Dr. Sriram Stroud MD~ Signed [facility] Work Phone: 1(732) 141-936804-03-2025 Discharge summary Author Sriram Stroud [facility] Note Date/Time October 18, 2024 2:04 pm [facility] Medical Records Department [address] [place] [address] Transfer to [facility] Care MR#: [id number] Acct: [id number] Name: LINO WHEELER Rep #:[id number] : 1935 89 From: Sriram Burks PCP: Dr. Saulo Schultz MD Status:ADM ALEX Certification of patient admission REQUIRED AT TIME OF ADMISSION. I CERTIFY THAT POST-HOSPITAL ECF SERVICES ARE REQUIRED TO BE GIVEN ON AN IN-PATIENT BASIS BECAUSE OF THE ABOVE NAMED PATIENT'S NEED FOR CORRECTION CARE ON A CONTINUING BASIS FOR THE CONDITION(S) FOR WHICH HE/SHE WAS RECEIVING IN-PATIENT HOSPITAL SERVICES PRIOR TO HIS/HER TRANSFER TO THE [facility]. 10/17/24 1538<Electronically signed by Sriram Stroud MD> Diet Diet Order/Speech Therapy: 10/16/24 15:59 Diet: Carbohydrate Controlled Food consistency:: Easy to Chew Liquid Consistency:: Regular/Thin Type of Dietary Supplement:: 120mL Glucerna w/ meals Diet Comments: soft foods only DC O2, CPAP, BIPAP needs Home O2 Discharge instructions: No Problem/Diagnosis (1) Failure to thrive: Status: Acute Plan 89-year-old gentleman was admitted because of not able to take care of himself, recurrent fall, decreased equilibrium and steady gait. # Failure to thrive/inability to care for self -Family very concerned about patient's ability to care for self -PT/OT -Case management and social work consults 10/16: Patient will need fci and subacute rehab. # Chronic pain secondary to lumbar stenosis with multiple lumbar surgeries -Continue patient's home regimen while admitted #Type 2 diabetes mellitus -Glucose was 124 in ED. Glucose 109 BMP. Accu-Cheks every 6 hours. 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 Allergies/Procedures Done in Hospital Allergies Penicillins Allergy (Mild, Verified 02/16/21 14:55) Hives hydromorphone (From Dilaudid) Allergy (Verified 02/16/21 14:55) Hallucinations ketorolac (From Toradol) Allergy (Verified 02/16/21 14:55) Itching Type of Care/Length of Stay Estimated LOS: Convalescent Care Less Than 30 days Type of Care Needed: Skilled Rehab Potential: Good Prognosis: Good Additional Orders/Day of Discharge Day of Discharge: 10/17/24 Dietary and Speech Recommendations Dietitian Recommendations/Changes: Will continue carbohydrate controlled diet with soft/fafo-hu-yuua foods. Will change ONS to 120mL glucerna shake 3 times per day w/ meals. Will d/c glucerna shake w/ medpass. Discharge Plan Admission Admit Date/Time: 10/15/24 18:29 Attending Provider: Sriram Stroud Primary Care Provider: Saulo Schultz Consulting Providers: Gemma Nava Instructions Patient Instructions: ED Diabetes- Overview Additional Instructions / Restrictions: Follow-up with your PCP. Return for any other concerns. Discharge Orders/Prescriptions Prescriptions: New atorvastatin 20 mg Tablet 20 mg PO QHS Qty: 0 0RF sennosides-docusate sodium [Stimulant Laxative Plus] 8.6-50 mg Tablet 2 tab PO BID Qty: 0 0RF insulin lispro [Humalog KwikPen Insulin] 100 unit/mL Insulin Pen See Protocol subcut ACHS Qty: 0 0RF Protocol: 3. Sliding Scale Insulin Med Dosing Condition: 150-189 mg/dl = 1 unit Condition: 190-229 mg/dl = 2 units Condition: 230-269 mg/dl = 3 units Condition: 270-309 mg/dl = 4 units Condition: 310-349 mg/dl = 5 units Condition: 350-399 mg/dl = 6 units Condition: 400-449 mg/dl = 7 units Condition: Greater than 449 call physician Protocol Text: Suggested for: - Patients on Total Daily Insulin Dose of 37-55 units - Obese, infected, or steroid patients MEDIUM DOSING ALGORITHIM Continued levetiracetam 500 mg tablet 500 mg PO BID Xtampza ER 18 mg cap,sprinkl,ER12hr(DONT CRUSH) 18 mg PO BID Rx Instructions: must administer with a meal/food Januvia 100 mg tablet 100 mg PO DAILY amitriptyline 25 mg tablet 25 mg PO DAILY tamsulosin 0.4 mg capsule 0.4 mg PO DAILY Xarelto 20 mg tablet 20 mg PO DAILY Rx Instructions: must administer with evening meal allopurinol 300 mg tablet 300 mg PO DAILY Changed hydroxyzine pamoate 25 mg capsule 25 mg PO QHS PRN (Reason: insomnia) Qty: 30 0RF oxymetazoline [12 Hour Nasal Relief [place]] 0.05 % spray,non-aerosol 2 spray intranasal BID PRN (Reason: Nasal congestion) 30 Days Qty: 0 0RF Held insulin glargine [Lantus Solostar U-100 Insulin] 100 unit/mL (3 mL) insulin pen subcut Hold Instructions: Hold if glucose less than 130 mg/dl Patient Comments: unknown dosage Discontinued rosuvastatin 10 mg tablet 10 mg PO QHS Referrals / Follow Up: Saulo Schultz MD [Primary Care Provider] - Saulo Schultz MD [[facility]] - 5-7 Days 10/17/24 1538 <Electronically signed by Sriram Stroud MD> Cosigner Signature (if applicable): CC: Dr. Saulo Schultz MD; Dr. Gemma Nava MD ~ ADDENDUM by Dr. Sriram Stroud MD on 10/18/24 at 1404 Addendum Patient is still undecided about going to fci or home. 10/18/24 1404 <Electronically signed by Sriram Stroud MD> cc: Dr. Saulo Schultz MD; Dr. Gemma Nava MD ~* Signed [facility] Work Phone: 1(996) 365-819704-03-2025 Discharge summary [facility] Medical Records Department [address] [place] [address] Discharge Summary 10/18/24 1405 MR#: [id number] Acct: [id number] Name: LINO WHEELER Rep #:[id number] : 1935 89 From: Sriram Burks PCP: Dr. Saulo Schultz MD Status:ADM ALEX Location: [place] [id number] Providers Date of Admission: 10/15/24 Date of Discharge: 10/18/24 Primary Care Physician: Dr. Saulo Schultz MD Reason For Visit: FTT Diagnosis Discharge Diagnosis (1) Failure to thrive: Status: Acute Plan 89-year-old gentleman was admitted because of not able to take care of himself, recurrent fall, decreased equilibrium and steady gait. # Failure to thrive/inability to care for self -Family very concerned about patient's ability to care for self -PT/OT -Case management and social work consults 10/16: Patient will need fci and subacute rehab. 10/18: Patient adamant that he wants to go home. Patient is a smoker trying to convince through his . Patient states her granddaughter is not power of deputy county attorney and his son who is current power of deputy county attorney has health issues himself. Patient not able to take care of his medications. # Chronic pain secondary to lumbar stenosis with multiple lumbar surgeries -Continue patient's home regimen while admitted #Type 2 diabetes mellitus -Glucose was 124 in ED. Glucose 109 BMP. Accu-Cheks every 6 hours. Hypoglycemia protocol ordered 10/18: Glucose is 157. Prescription given for Humalog sliding scale insulin and atorvastatin. #Chronic BPH with obstruction -Continue home medications #Seizure disorder -Presently maintained on Keppra -Continue home regimen #Chronic anticoagulation -Unclear indication, awaiting final med reconciliation, was continued as a home med in the ED so wewill continue #Gout -Continue home allopurinol #DVT ppx: Chronically anticoagulated on Xarelto Discharge medication reconciliation done. Discharge follow-up instructions completed. Discharge process discussed with the patient and all questions wereanswered to patient's satisfaction. Follow with PCP in 1 to 2 weeks Total time spent, exact 35 minutes on discharge meds reconciliation, examination, coordination of care with nurses and ancillary staff, review of imaging and blood test and discussion with the patient on follow-up instructions. Medications at Discharge Home Medications allopurinol 300 mg tablet 300 mg PO DAILY 10/15/24 amitriptyline 25 mg tablet 25 mg PO DAILY 10/15/24 insulin glargine 100 unit/mL (3 mL) subcutaneous pen (Lantus Solostar U-100 Insulin) unit subcut 10/15/24 Held on 10/17/24. Instructions: Hold if glucose less than 130 mg/dl levetiracetam 500 mg tablet 500 mg PO BID 10/15/24 oxycodone myristate 18 mg capsule sprinkle extended release 12hr(DON'T CRUSH) (Xtampza ER) 18 mg POBID 10/15/24 rivaroxaban 20 mg tablet (Xarelto) 20 mg PO DAILY 10/15/24 sitagliptin phosphate 100 mg tablet (Januvia) 100 mg PO DAILY 10/15/24 tamsulosin 0.4 mg capsule 0.4 mg PO DAILY 10/15/24 hydroxyzine pamoate 25 mg capsule 25 mg PO QHS PRN insomnia #30 CAPSULES 10/17/24 oxymetazoline 0.05 % nasal spray (12 Hour Nasal Relief [place]) 2 spray intranasalBID PRN Nasal congestion 30 days #0 mL 10/17/24 sennosides 8.6 mg-docusate sodium 50 mg tablet (Stimulant Laxative Plus) 2 tab PO BID #0 tabs 10/17/24 insulin lispro 100 unit/mL subcutaneous half-unit pen (Humalog Andrews KwikPen (U-100)) See Protocolsubcut TIDCM #15 mL 10/18/24 rosuvastatin 10 mg tablet 10 mg PO DAILY 1 month #30 tabs 10/18/24 Physical Exam Narrative Seen and examined. No acute issues. Patient refusing to go to SNF. Patient has difficulty in ambulation, recurrent fall 2 falls in last 1 week. Unsteady gait and poorbalance and equilibrium Physical exam General: Alert, Oriented x3, Cooperative HEENT: Atraumatic, PERRLA, EOMI, Normocephalic Oral: No Gingival or Mucosal Lesions/ Ulcerations Neck: Supple, No JVD, Negative Carotid Bruits Chest wall/Lungs: Air entry diminished in bilateral lung bases. No crepitation/rhonchi Cardiovascular: Regular rate, Regular Rhythm, Normal S1, Normal S2, systolic murmur Abdomen: Bowel Sounds Present, Soft, Non Tender, Non-Distended : No dysuria. No renal angle tenderness. No suprapubic tenderness. Extremities: No edema, Capillary Refill Less than 3 Seconds Skin: No rashes, No breakdown Musculoskeletal: No Tenderness to Palpation of Joints or Extremities. Muscle power 4/5 at major joints. ROM restricted knee joints. Neurological: Cranial nerves II-XII grossly intact, DTR 2+/4. No acute focal neurological deficit. Psych/Mental Status: Normal Affect, Appropriate. Weight / BMI Weight Weight: 190 lb 4.143 oz Body Mass Index (BMI) 28.0 ABG / Lab / Microbiology Data 10/16/24 06:56 10/16/24 06:56 Laboratory: Laboratory Results - last 24 hr 10/17/24 16:50: POC Glucose 172 H 10/17/24 21:56: POC Glucose 133 H 10/18/24 06:55: POC Glucose 129 H 10/18/24 11:10: POC Glucose 157 H D/C Instructions DC O2, CPAP, BIPAP Needs Home O2 Discharge instructions: No Meaningful Use Info Meaningful Use Meaningful Use Diagnoses (Choose all that apply): None applicable Ischemic Stroke Statin Dosing Therapy Reference: STATIN DOSE THERAPY REFERENCE: * Patients > 75 years receive moderate or high dose statin therapy. * Patients 75 years or YOUNGER should receive HIGH intensity statin dose unless contraindicated. You will be required to document reason for non-treatment if statin daily dose does not meet guidelines. HIGH DOSE STATIN THERAPY DAILY Atorvastatin > than or = to 40 mg Rosuvastatin > than or = to 20 mg Amlodipine + Atorvastatin > than or = to 2.5/40 mg Ezetimibe + Simvastatin 10/80 mg Simvastatin 80mg Discharge Plan Admission Admit Date/Time: 10/15/24 18:29 Primary Reason for Your Visit: Failure to thrive Attending Provider: Sriram Stroud Primary Care Provider: Saulo Schultz Consulting Providers: Gemma Nava Instructions Patient Instructions: ED Diabetes- Overview Additional Instructions / Restrictions: Follow-up with your PCP. Return for any other concerns. Discharge Orders/Prescriptions Prescriptions: New sennosides-docusate sodium [Stimulant Laxative Plus] 8.6-50 mg Tablet 2 tab PO BID Qty: 0 0RF rosuvastatin 10 mg tablet 10 mg PO DAILY 30 Days Qty: 30 2RF insulin lispro [Humalog Andrews KwikPen U-100] 100 unit/mL insulin pen, half-unit See Protocol subcut TIDCM Qty: 15 3RF Protocol: 3. Sliding Scale Insulin Med Dosing Condition: 150-189 mg/dl = 1 unit Condition: 190-229 mg/dl = 2 units Condition: 230-269 mg/dl = 3 units Condition: 270-309 mg/dl = 4 units Condition: 310-349 mg/dl = 5 units Condition: 350-399 mg/dl = 6 units Condition: 400-449 mg/dl = 7 units Condition: Greater than 449 call physician Protocol Text: Suggested for: - Patients on Total Daily Insulin Dose of 37-55 units - Obese, infected, or steroid patients MEDIUM DOSING ALGORITHIM Rx Instructions: Call PCP if Glucose <70 or > 400 Continued levetiracetam 500 mg tablet 500 mg PO BID Xtampza ER 18 mg cap,sprinkl,ER12hr(DONT CRUSH) 18 mg PO BID Rx Instructions: must administer with a meal/food Januvia 100 mg tablet 100 mg PO DAILY amitriptyline 25 mg tablet 25 mg PO DAILY tamsulosin 0.4 mg capsule 0.4 mg PO DAILY Xarelto 20 mg tablet 20 mg PO DAILY Rx Instructions: must administer with evening meal allopurinol 300 mg tablet 300 mg PO DAILY Changed hydroxyzine pamoate 25 mg capsule 25 mg PO QHS PRN (Reason: insomnia) Qty: 30 0RF oxymetazoline [12 Hour Nasal Relief [place]] 0.05 % spray,non-aerosol 2 spray intranasal BID PRN (Reason: Nasal congestion) 30 Days Qty: 0 0RF Held insulin glargine [Lantus Solostar U-100 Insulin] 100 unit/mL (3 mL) insulin pen subcut Hold Instructions: Hold if glucose less than 130 mg/dl Patient Comments: unknown dosage Discontinued rosuvastatin 10 mg tablet 10 mg PO QHS Referrals / Follow Up: Saulo Schultz MD [Primary Care Provider] - Saulo Schultz MD [[facility]] - 5-7 Days Disposition Disposition (needs filled in before D/C Order can be placed): Home Health Service Charges/Coding Visit Charges Inpatient E&M: 57645 Disch Hosp >30min 10/18/24 1511 Cosigner Signature (if applicable): CC: Dr. Saulo Schultz MD; Dr. Sriram Stroud MD~ Signed [facility]04-03-2025 Discharge summary [facility] Medical Records Department [address] [place] [address] Instructions for Home/Discharge Instructions 10/18/24 1058 MR#: [id number] Acct: [id number] Name: LINO WHEELER Rep #:[id number] : 1935 89 From: Sriram Burks PCP: Dr. Saulo Schultz MD Status:ADM ALEX Discharge Instructions Diet Discharge Diet: Light diet - advance as tolerated DC O2, CPAP, BIPAP needs Home O2 Discharge instructions: No Dressing / Incision Discharge Activity: Return to Normal Activity and May Not Drive Weight Bearing Status: Weight bearing as tolerated Dressing / Incision Call your doctor if you observe: Fever of 101 or Higher, Coldness, Increased Pain, Numbness or Tingling, Change in Color, Inability to urinate, Inability to have a bowel movement, Shortness of breath, Dizziness, Fainting spells, Swellingin the ankles, Chest pain, Prolonged hiccupping, Increased palpitations (irregular heartbeat) and Calf discomfort Follow Up Care When: IN 2 WEEKS Test Results: Test results from this visit will be discussed in further detail at your follow- up appointment, if applicable. Discharge Plan Admission Admit Date/Time: 10/15/24 18:29 Primary Reason for Your Visit: Failure to thrive Attending Provider: Sriram Stroud Primary Care Provider: Saulo Schultz Consulting Providers: Gemma Nava Instructions Patient Instructions: ED Diabetes- Overview Additional Instructions / Restrictions: Follow-up with your PCP. Return for any other concerns. Discharge Orders/Prescriptions Prescriptions: New sennosides-docusate sodium [Stimulant Laxative Plus] 8.6-50 mg Tablet 2 tab PO BID Qty: 0 0RF rosuvastatin 10 mg tablet 10 mg PO DAILY 30 Days Qty: 30 2RF insulin lispro [Humalog Andrews KwikPen U-100] 100 unit/mL insulin pen, half-unit See Protocol subcut TIDCM Qty: 15 3RF Protocol: 3. Sliding Scale Insulin Med Dosing Condition: 150-189 mg/dl = 1 unit Condition: 190-229 mg/dl = 2 units Condition: 230-269 mg/dl = 3 units Condition: 270-309 mg/dl = 4 units Condition: 310-349 mg/dl = 5 units Condition: 350-399 mg/dl = 6 units Condition: 400-449 mg/dl = 7 units Condition: Greater than 449 call physician Protocol Text: Suggested for: - Patients on Total Daily Insulin Dose of 37-55 units - Obese, infected, or steroid patients MEDIUM DOSING ALGORITHIM Rx Instructions: Call PCP if Glucose <70 or > 400 Continued levetiracetam 500 mg tablet 500 mg PO BID Xtampza ER 18 mg cap,sprinkl,ER12hr(DONT CRUSH) 18 mg PO BID Rx Instructions: must administer with a meal/food Januvia 100 mg tablet 100 mg PO DAILY amitriptyline 25 mg tablet 25 mg PO DAILY tamsulosin 0.4 mg capsule 0.4 mg PO DAILY Xarelto 20 mg tablet 20 mg PO DAILY Rx Instructions: must administer with evening meal allopurinol 300 mg tablet 300 mg PO DAILY Changed hydroxyzine pamoate 25 mg capsule 25 mg PO QHS PRN (Reason: insomnia) Qty: 30 0RF oxymetazoline [12 Hour Nasal Relief [place]] 0.05 % spray,non-aerosol 2 spray intranasal BID PRN (Reason: Nasal congestion) 30 Days Qty: 0 0RF Held insulin glargine [Lantus Solostar U-100 Insulin] 100 unit/mL (3 mL) insulin pen subcut Hold Instructions: Hold if glucose less than 130 mg/dl Patient Comments: unknown dosage Discontinued rosuvastatin 10 mg tablet 10 mg PO QHS Referrals / Follow Up: Saulo Schultz MD [Primary Care Provider] - Saulo Schultz MD [[facility]] - 5-7 Days Disposition Disposition (needs filled in before D/C Order can be placed): Home Health Service 10/18/24 1509Sriram Stroud MD CC: Dr. Saulo Schultz MD; Dr. Gemma Nava MD ~ Signed [facility]04-03-2025 [facility] Medical Records Department [address] [place] [address] Discharge Summary 10/18/24 1405 MR#: [id number] Acct: [id number] Name: LINO WHEELER Rep #: [id number] : 1935 89 From: Sriram Stroud MD PCP: Dr. Saulo Schultz MD Status:ADM ALEX Location: [place] [address] Providers Date of Admission: 10/15/24 Date of Discharge: 10/18/24 Primary Care Physician: Dr. Saulo Schultz MD Reason For Visit: FTT Diagnosis Discharge Diagnosis (1) Failure to thrive: Status: Acute Plan 89-year-old gentleman was admitted because of not able to take care of himself, recurrent fall, decreased equilibrium and steady gait. # Failure to thrive/inability to care for self -Family very concerned about patient's ability to care for self -PT/OT -Case management and social work consults 10/16: Patient will need [facility] and subacute rehab. 10/18: Patient adamant that he wants to go home. Patient is a smoker trying to convince through his . Patient states her granddaughter is not power of deputy county attorney and his son who is current power of deputy county attorney has health issues himself. Patient not able to take care of his medications. # Chronic pain secondary to lumbar stenosis with multiple lumbar surgeries -Continue patient's home regimen while admitted #Type 2 diabetes mellitus -Glucose was 124 in ED. Glucose 109 BMP. Accu-Cheks every 6 hours. Hypoglycemia protocol ordered 10/18: Glucose is 157. Prescription given for Humalog sliding scale insulin and atorvastatin. 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 Discharge follow-up instructions completed. Discharge process discussed with the patient and all questions were answered to patient's satisfaction. Follow with PCP in 1 to 2 weeks Total time spent, exact 35 minutes on discharge meds reconciliation, examination, coordination of care with nurses and ancillary staff, review of imaging and blood test and discussion with the patient on follow-up instructions. Medications at Discharge Home Medications allopurinol 300 mg tablet 300 mg PO DAILY 10/15/24 amitriptyline 25 mg tablet 25 mg PO DAILY 10/15/24 insulin glargine 100 unit/mL (3 mL) subcutaneous pen (Lantus Solostar U-100 Insulin) unit subcut 10/15/24 Held on 10/17/24. Instructions: Hold if glucose less than 130 mg/dl levetiracetam 500 mg tablet 500 mg PO BID 10/15/24 oxycodone myristate 18 mg capsule sprinkle extended release 12hr(DON'T CRUSH) (Xtampza ER) 18 mg PO BID 10/15/24 rivaroxaban 20 mg tablet (Xarelto) 20 mg PO DAILY 10/15/24 sitagliptin phosphate 100 mg tablet (Januvia) 100 mg PO DAILY 10/15/24 tamsulosin 0.4 mg capsule 0.4 mg PO DAILY 10/15/24 hydroxyzine pamoate 25 mg capsule 25 mg PO QHS PRN insomnia #30 CAPSULES 10/17/24 oxymetazoline 0.05 % nasal spray (12 Hour Nasal Relief [place]) 2 spray intranasal BID PRN Nasal congestion 30 days #0 mL 10/17/24 sennosides 8.6 mg-docusate sodium 50 mg tablet (Stimulant Laxative Plus) 2 tab PO BID #0 tabs 10/17/24 insulin lispro 100 unit/mL subcutaneous half-unit pen (Humalog Andrews KwikPen (U-100)) See Protocol subcut TIDCM #15 mL 10/18/24 rosuvastatin 10 mg tablet 10 mg PO DAILY 1 month #30 tabs 10/18/24 Physical Exam Narrative Seen and examined. No acute issues. Patient refusing to go to SNF. Patient has difficulty in ambulation, recurrent fall 2 falls in last 1 week. Unsteady gait and poor balance and equilibrium Physical exam General: Alert, Oriented x3, Cooperative HEENT: Atraumatic, PERRLA, EOMI, Normocephalic Oral: No Gingival or Mucosal Lesions/ Ulcerations Neck: Supple, No JVD, Negative Carotid Bruits Chest wall/Lungs: Air entry diminished in bilateral lung bases. No crepitation/rhonchi Cardiovascular: Regular rate, Regular Rhythm, Normal S1, Normal S2, systolic murmur Abdomen: Bowel Sounds Present, Soft, Non Tender, Non-Distended : No dysuria. No renal angle tenderness. No suprapubic tenderness. Extremities: No edema, Capillary Refill Less than 3 Seconds Skin: No rashes, No breakdown Musculoskeletal: No Tenderness to Palpation of Joints or Extremities. Muscle power 4/5 at major joints. ROM restricted knee joints. Neurological: Cranial nerves II-XII grossly intact, DTR 2+/4. No acute focal neurological deficit. Psych/Mental Status: Normal Affect, Appropriate. Weight / BMI Weight Weight: 190 lb 4.143 oz Body Mass Index (BMI) 28.0 ABG / Lab / Microbiology Data 10/16/24 06:56 10/16/24 06:56 Laboratory: Laboratory Results (more content not included)...[facility] 10-18-2024 Discharge summary [facility] Medical Records Department [address] [place] [address] Transfer to [facility] Care MR#: [id number] Acct: [id number] Name: LINO WHEELER Rep #:[id number] : 1935 89 From: Sriram Burks PCP: Dr. Saulo Schultz MD Status:ADM ALEX Certification of patient admission REQUIRED AT TIME OF ADMISSION. I CERTIFY THAT POST-HOSPITAL F SERVICES ARE REQUIRED TO BE GIVEN ON AN IN-PATIENT BASIS BECAUSE OF THE ABOVE NAMED PATIENT'S NEED FOR CORRECTION CARE ON A CONTINUING BASIS FOR THE CONDITION(S) FOR WHICH HE/SHE WAS RECEIVING IN-PATIENT HOSPITAL SERVICES PRIOR TO HIS/HER TRANSFER TO THE [facility]. 10/17/24 1538 Diet Diet Order/Speech Therapy: 10/16/24 15:59 Diet: Carbohydrate Controlled Food consistency:: Easy to Chew Liquid Consistency:: Regular/Thin Type of Dietary Supplement:: 120mL Glucerna w/ meals Diet Comments: soft foods only DC O2, CPAP, BIPAP needs Home O2 Discharge instructions: No Problem/Diagnosis (1) Failure to thrive: Status: Acute Plan 89-year-old gentleman was admitted because of not able to take care of himself, recurrent fall, decreased equilibrium and steady gait. # Failure to thrive/inability to care for self -Family very concerned about patient's ability to care for self -PT/OT -Case management and social work consults 10/16: Patient will need fci and subacute rehab. # Chronic pain secondary to lumbar stenosis with multiple lumbar surgeries -Continue patient's home regimen while admitted #Type 2 diabetes mellitus -Glucose was 124 in ED. Glucose 109 BMP. Accu-Cheks every 6 hours. Hypoglycemia protocol ordered #Chronic BPH with obstruction -Continue home medications #Seizure disorder -Presently maintained on Keppra -Continue home regimen #Chronic anticoagulation -Unclear indication, awaiting final med reconciliation, was continued as a home med in the ED so rachelle continue #Gout -Continue home allopurinol #DVT ppx: Chronically anticoagulated on Xarelto Allergies/Procedures Done in Hospital Allergies Penicillins Allergy (Mild, Verified 02/16/21 14:55) Hives hydromorphone (From Dilaudid) Allergy (Verified 02/16/21 14:55) Hallucinations ketorolac (From Toradol) Allergy (Verified 02/16/21 14:55) Itching Type of Care/Length of Stay Estimated LOS: Convalescent Care Less Than 30 days Type of Care Needed: Skilled Rehab Potential: Good Prognosis: Good Additional Orders/Day of Discharge Day of Discharge: 10/17/24 Dietary and Speech Recommendations Dietitian Recommendations/Changes: Will continue carbohydrate controlled diet with soft/[id number] foods. Will change ONS to 120mL glucerna shake 3 times per day w/ meals. Will d/c glucerna shake w/ medpass. Discharge Plan Admission Admit Date/Time: 10/15/24 18:29 Attending Provider: Sriram Stroud Primary Care Provider: Saulo Schultz Consulting Providers: Gemma Nava Instructions Patient Instructions: ED Diabetes- Overview Additional Instructions / Restrictions: Follow-up with your PCP. Return for any other concerns. Discharge Orders/Prescriptions Prescriptions: New atorvastatin 20 mg Tablet 20 mg PO QHS Qty: 0 0RF sennosides-docusate sodium [Stimulant Laxative Plus] 8.6-50 mg Tablet 2 tab PO BID Qty: 0 0RF insulin lispro [Humalog KwikPen Insulin] 100 unit/mL Insulin Pen See Protocol subcut ACHS Qty: 0 0RF Protocol: 3. Sliding Scale Insulin Med Dosing Condition: 150-189 mg/dl = 1 unit Condition: 190-229 mg/dl = 2 units Condition: 230-269 mg/dl = 3 units Condition: 270-309 mg/dl = 4 units Condition: 310-349 mg/dl = 5 units Condition: 350-399 mg/dl = 6 units Condition: 400-449 mg/dl = 7 units Condition: Greater than 449 call physician Protocol Text: Suggested for: - Patients on Total Daily Insulin Dose of 37-55 units - Obese, infected, or steroid patients MEDIUM DOSING ALGORITHIM Continued levetiracetam 500 mg tablet 500 mg PO BID Xtampza ER 18 mg cap,sprinkl,ER12hr(DONT CRUSH) 18 mg PO BID Rx Instructions: must administer with a meal/food Januvia 100 mg tablet 100 mg PO DAILY amitriptyline 25 mg tablet 25 mg PO DAILY tamsulosin 0.4 mg capsule 0.4 mg PO DAILY Xarelto 20 mg tablet 20 mg PO DAILY Rx Instructions: must administer with evening meal allopurinol 300 mg tablet 300 mg PO DAILY Changed hydroxyzine pamoate 25 mg capsule 25 mg PO QHS PRN (Reason: insomnia) Qty: 30 0RF oxymetazoline [12 Hour Nasal Relief [place]] 0.05 % spray,non-aerosol 2 spray intranasal BID PRN (Reason: Nasal congestion) 30 Days Qty: 0 0RF Held insulin glargine [Lantus Solostar U-100 Insulin] 100 unit/mL (3 mL) insulin pen subcut Hold Instructions: Hold if glucose less than 130 mg/dl Patient Comments: unknown dosage Discontinued rosuvastatin 10 mg tablet 10 mg PO QHS Referrals / Follow Up: Saulo Schultz MD [Primary Care Provider] - Saulo Schultz MD [[facility]] - 5-7 Days 10/17/24 1538 Cosigner Signature (if applicable): CC: Dr. Saulo Schultz MD; Dr. Gemma Nava MD ~ ADDENDUM by Dr. Sriram Stroud MD on 10/18/24 at 1404 Addendum Patient is still undecided about going to fci or home. 10/18/24 1404 cc: Dr. Saulo Schultz MD; Dr. Gemma Nava MD ~* Signed [facility]04-03-2025 Telephone encounter Note* Telephone Encounter - [place] Janet Thomson - 10/18/2024 1:32 PM EDT Lino is a patient of Keyla Schultz MD today [facility], Intake Dept called from [facility] to confirm the doctor will follow and sign for [facility] services: nursing, PT, OT, SW. Please call back toconfirm. The patient is discharging tomorrow. Patient has been identified by name and birthdate. was an appointment scheduled: No Closing statement: Results or non-symptom based questions: Thank you for calling [facility], your call will be returned within the next business day. Janet Thomson [facility]04-03-2025 Discharge summary Author Sriram Stroud [facility] Note Date/Time October 18, 2024 3:09 pm [facility] Medical Records Department [address] [place] [address] Instructions for Home/Discharge Instructions 10/18/24 1058 MR#: [id number] Acct: [id number] Name: LINO WHEELER Rep #:[id number] : 1935 89 From: Sriram Burks PCP: Dr. Saulo Schultz MD Status:ADM ALEX Discharge Instructions Diet Discharge Diet: Light diet - advance as tolerated DC O2, CPAP, BIPAP needs Home O2 Discharge instructions: No Dressing / Incision Discharge Activity: Return to Normal Activity and May Not Drive Weight Bearing Status: Weight bearing as tolerated Dressing / Incision Call your doctor if you observe: Fever of 101 or Higher, Coldness, Increased Pain, Numbness or Tingling, Change in Color, Inability to urinate, Inability to have a bowel movement, Shortness of breath, Dizziness, Fainting spells, Swellingin the ankles, Chest pain, Prolonged hiccupping, Increased palpitations (irregular heartbeat) and Calf discomfort Follow Up Care When: IN 2 WEEKS Test Results: Test results from this visit will be discussed in further detail at your follow- up appointment, if applicable. Discharge Plan Admission Admit Date/Time: 10/15/24 18:29 Primary Reason for Your Visit: Failure to thrive Attending Provider: Sriram Stroud Primary Care Provider: Saulo Schultz Consulting Providers: Gemma Nava Instructions Patient Instructions: ED Diabetes- Overview Additional Instructions / Restrictions: Follow-up with your PCP. Return for any other concerns. Discharge Orders/Prescriptions Prescriptions: New sennosides-docusate sodium [Stimulant Laxative Plus] 8.6-50 mg Tablet 2 tab PO BID Qty: 0 0RF rosuvastatin 10 mg tablet 10 mg PO DAILY 30 Days Qty: 30 2RF insulin lispro [Humalog Andrews KwikPen U-100] 100 unit/mL insulin pen, half-unit See Protocol subcut TIDCM Qty: 15 3RF Protocol: 3. Sliding Scale Insulin Med Dosing Condition: 150-189 mg/dl = 1 unit Condition: 190-229 mg/dl = 2 units Condition: 230-269 mg/dl = 3 units Condition: 270-309 mg/dl = 4 units Condition: 310-349 mg/dl = 5 units Condition: 350-399 mg/dl = 6 units Condition: 400-449 mg/dl = 7 units Condition: Greater than 449 call physician Protocol Text: Suggested for: - Patients on Total Daily Insulin Dose of 37-55 units - Obese, infected, or steroid patients MEDIUM DOSING ALGORITHIM Rx Instructions: Call PCP if Glucose <70 or > 400 Continued levetiracetam 500 mg tablet 500 mg PO BID Xtampza ER 18 mg cap,sprinkl,ER12hr(DONT CRUSH) 18 mg PO BID Rx Instructions: must administer with a meal/food Januvia 100 mg tablet 100 mg PO DAILY amitriptyline 25 mg tablet 25 mg PO DAILY tamsulosin 0.4 mg capsule 0.4 mg PO DAILY Xarelto 20 mg tablet 20 mg PO DAILY Rx Instructions: must administer with evening meal allopurinol 300 mg tablet 300 mg PO DAILY Changed hydroxyzine pamoate 25 mg capsule 25 mg PO QHS PRN (Reason: insomnia) Qty: 30 0RF oxymetazoline [12 Hour Nasal Relief [place]] 0.05 % spray,non-aerosol 2 spray intranasal BID PRN (Reason: Nasal congestion) 30 Days Qty: 0 0RF Held insulin glargine [Lantus Solostar U-100 Insulin] 100 unit/mL (3 mL) insulin pen subcut Hold Instructions: Hold if glucose less than 130 mg/dl Patient Comments: unknown dosage Discontinued rosuvastatin 10 mg tablet 10 mg PO QHS Referrals / Follow Up: Saulo Schultz MD [Primary Care Provider] - Saulo Schultz MD [[facility]] - 5-7 Days Disposition Disposition (needs filled in before D/C Order can be placed): Home Health Service 10/18/24 7362<Electronically signed by Sriram Stroud MD>Sriram Stroud MD CC: Dr. Saulo Schultz MD; Dr. Gemma Nava MD ~ Signed [facility] Work Phone: 1(197) 616-825604-02-2025 Progress note Author Sriram Stroud [facility] Note Date/Time October 17, 2024 4:40 pm [facility] Medical Records Department [address] [place] [address] Progress Note - Hospitalist 10/17/24 0846 MR#: [id number] Acct: [id number] Name: LINO WHEELER Rep #:[id number] : 1935 89 From: Sriram Burks PCP: Dr. Saulo Schultz MD Status:ADM ALEX Location: [place] [address] Objective Data Objective Data Vital Signs: Vital Signs Temp Pulse Resp BP Pulse Ox O2 Del Method 98.7 F 96 16 103/63 95 Room Air 10/17/24 08:44 10/17/24 08:44 10/17/24 08:44 10/17/24 08:44 10/17/24 08:44 10/17/24 08:44 Oxygen Delivery Method Room Air Weight: 190 lb 4.143 oz Body Mass Index (BMI) 28.0 Intake & Output: Intake and Output for Last 24 Hours 10/15/24 10/16/24 10/17/24 23:59 23:59 23:59 Intake Total 460 / 460 Balance 460 / 460 Lab / Micro Data 10/16/24 06:56 10/16/24 06:56 Labs: Laboratory Results - last 24 hr 10/16/24 06:31: POC Glucose 106 10/16/24 11:06: POC Glucose 149 H 10/16/24 16:42: POC Glucose 160 H 10/16/24 22:41: POC Glucose 129 H 10/17/24 06:33: POC Glucose 137 H Physical Exam Narrative Seen and examined. No acute issues. Patient refusing to go to SNF. Patient has difficulty in ambulation, recurrent fall 2 falls in last 1 week. Unsteady gait and poor balance and equilibrium Physical exam General: Alert, Oriented x3, Cooperative HEENT: Atraumatic, PERRLA, EOMI, Normocephalic Oral: No Gingival or Mucosal Lesions/ Ulcerations Neck: Supple, No JVD, Negative Carotid Bruits Chest wall/Lungs: Air entry diminished in bilateral lung bases. No crepitation/rhonchi Cardiovascular: Regular rate, Regular Rhythm, Normal S1, Normal S2, systolic murmur Abdomen: Bowel Sounds Present, Soft, Non Tender, Non-Distended : No dysuria. No renal angle tenderness. No suprapubic tenderness. Extremities: No edema, Capillary Refill Less than 3 Seconds Skin: No rashes, No breakdown Musculoskeletal: No Tenderness to Palpation of Joints or Extremities. Muscle power 4/5 at major joints. ROM restricted knee joints. Neurological: Cranial nerves II-XII grossly intact, DTR 2+/4. No acute focal neurological deficit. Psych/Mental Status: Normal Affect, Appropriate. Assessment & Plan Assessment/Plan (1) Failure to thrive: PLAN: Plan 89-year-old gentleman was admitted because of not able to take care of himself, recurrent fall, decreased equilibrium and steady gait. # Failure to thrive/inability to care for self -Family very concerned about patient's ability to care for self -PT/OT -Case management and social work consults 10/16: Patient will need fci and subacute rehab. 2: Patient refusing going to SNF placement. [facility] mental health social worker working on it but probably will call tomorrow with home health aide # Chronic pain secondary to lumbar stenosis with multiple lumbar surgeries -Continue patient's home regimen while admitted #Type 2 diabetes mellitus -Glucose was 124 in ED. Glucose 109 BMP. Accu-Cheks every 6 hours. Hypoglycemia protocol ordered 10/17: Glucose 123 #Chronic BPH with obstruction -Continue home medications #Seizure disorder -Presently maintained on Keppra -Continue home regimen #Chronic anticoagulation -Unclear indication, awaiting final med reconciliation, was continued as a home med in the ED so we will continue #Gout -Continue home allopurinol #DVT ppx: Chronically anticoagulated on Xarelto Charges/Coding Visit Charges Inpatient E&M: 87539 Subs Hosp L2 10/17/24 1640 <Electronically signed by Sriram Stroud MD> Cosigner Signature (if applicable): CC: ~ Signed [facility] Work Phone: 1(659) 160-589004-02-2025 Progress note [facility] Medical Records Department [address] [place] [address] Progress Note - Hospitalist 10/17/24 0846 MR#: [id number] Acct: [id number] Name: LINO WHEELER #:[id number] : 1935 89 From: Sriram Burks PCP: Dr. Saulo Schultz MD Status:ADM ALEX Location: [place] [address] Objective Data Objective Data Vital Signs: Vital Signs Temp Pulse Resp BP Pulse Ox O2 Del Method 98.7 F 96 16 103/63 95 Room Air 10/17/24 08:44 10/17/24 08:44 10/17/24 08:44 10/17/24 08:44 10/17/24 08:44 10/17/24 08:44 Oxygen Delivery Method Room Air Weight: 190 lb 4.143 oz Body Mass Index (BMI) 28.0 Intake & Output: Intake and Output for Last 24 Hours 10/15/24 10/16/24 10/17/24 23:59 23:59 23:59 Intake Total 460 / 460 Balance 460 / 460 Lab / Micro Data 10/16/24 06:56 10/16/24 06:56 Labs: Laboratory Results - last 24 hr 10/16/24 06:31: POC Glucose 106 10/16/24 11:06: POC Glucose 149 H 10/16/24 16:42: POC Glucose 160 H 10/16/24 22:41: POC Glucose 129 H 10/17/24 06:33: POC Glucose 137 H Physical Exam Narrative Seen and examined. No acute issues. Patient refusing to go to SNF. Patient has difficulty in ambulation, recurrent fall 2 falls in last 1 week. Unsteady gait and poorbalance and equilibrium Physical exam General: Alert, Oriented x3, Cooperative HEENT: Atraumatic, PERRLA, EOMI, Normocephalic Oral: No Gingival or Mucosal Lesions/ Ulcerations Neck: Supple, No JVD, Negative Carotid Bruits Chest wall/Lungs: Air entry diminished in bilateral lung bases. No crepitation/rhonchi Cardiovascular: Regular rate, Regular Rhythm, Normal S1, Normal S2, systolic murmur Abdomen: Bowel Sounds Present, Soft, Non Tender, Non-Distended : No dysuria. No renal angle tenderness. No suprapubic tenderness. Extremities: No edema, Capillary Refill Less than 3 Seconds Skin: No rashes, No breakdown Musculoskeletal: No Tenderness to Palpation of Joints or Extremities. Muscle power 4/5 at major joints. ROM restricted knee joints. Neurological: Cranial nerves II-XII grossly intact, DTR 2+/4. No acute focal neurological deficit. Psych/Mental Status: Normal Affect, Appropriate. Assessment & Plan Assessment/Plan (1) Failure to thrive: PLAN: Plan 89-year-old gentleman was admitted because of not able to take care of himself, recurrent fall, decreased equilibrium and steady gait. # Failure to thrive/inability to care for self -Family very concerned about patient's ability to care for self -PT/OT -Case management and social work consults 10/16: Patient will need fci and subacute rehab. 10/17: Patient refusing going to SNF placement. [facility] mental health social worker working on it but probably willcall tomorrow with home health aide # Chronic pain secondary to lumbar stenosis with multiple lumbar surgeries -Continue patient's home regimen while admitted #Type 2 diabetes mellitus -Glucose was 124 in ED. Glucose 109 BMP. Accu-Cheks every 6 hours. Hypoglycemia protocol ordered 10/17: Glucose 123 #Chronic BPH with obstruction -Continue home medications #Seizure disorder -Presently maintained on Keppra -Continue home regimen #Chronic anticoagulation -Unclear indication, awaiting final med reconciliation, was continued as a home med in the ED so wewill continue #Gout -Continue home allopurinol #DVT ppx: Chronically anticoagulated on Xarelto Charges/Coding Visit Charges Inpatient E&M: 36526 Subs Hosp L2 10/17/24 1640 Cosigner Signature (if applicable): CC: ~ Signed [facility]04-01-2025 Progress note Author Sriram Stroud [facility] Note Date/Time October 16, 2024 3:56 pm [facility] Medical Records Department [address] [facility] [place] [address] Progress Note - Hospitalist 10/16/24 0957 MR#: [id number] Acct: [id number] Name: LINO WHEELER Rep #:[id number] : 1935 89 From: Sriram Burks PCP: Dr. Saulo Schultz MD Status:ADM ALEX Location: [place] [address] Objective Data Objective Data Vital Signs: Vital Signs Temp Pulse Resp BP Pulse Ox O2 Del Method 97.4 F L 100 18 121/77 H 97 Room Air 10/16/24 08:16 10/16/24 08:16 10/16/24 08:16 10/16/24 08:16 10/16/24 08:16 10/16/24 08:16 Oxygen Delivery Method Room Air Weight: 190 lb 4.143 oz Body Mass Index (BMI) 28.0 Lab / Micro Data 10/16/24 06:56 10/16/24 06:56 Labs: Laboratory Results - last 24 hr 10/15/24 13:19: POC Glucose 124 H 10/15/24 18:00: WBC 6.0, RBC 4.12 L, Hgb 12.6 L, Hct 39.9 L, MCV 96.8 H, MCH 30.6, MCHC 31.6 L, RDW Std Deviation 51.2 H, RDW Coeff of May 14.5, Plt Count 195, MPV 9.4, Immature Gran % (Auto) 0.500, Neut % (Auto) 65.3, Lymph % (Auto) 21.4, [place] % (Auto) 6.4, Eos % (Auto) 5.2 H, Baso % (Auto) 1.2 H, Absolute Neuts(auto) 3.9, Absolute Lymphs (auto) 1.28, Nucleated RBC % 0, Sodium 138, Potassium 4.0, Chloride 103, Carbon Dioxide 12.7 L, Anion Gap 22 H, BUN 11, Creatinine 0.74, Estim Creat Clear Calc 69.15, Est GFR (MDRD) Non-Af 86, BUN/Creatinine Ratio 14.7, Glucose 125 H, Calcium 9.0 10/15/24 18:41: Lactic Acid 1.7 10/15/24 21:47: POC Glucose 118 H 10/16/24 06:56: WBC 7.6, RBC 4.08 L, Hgb 12.5 L, Hct 38.9 L, MCV 95.3 H, MCH 30.6, MCHC 32.1, RDW Std Deviation 49.9 H, RDW Coeff of May 14.6, Plt Count 235,MPV 9.6, Immature Gran % (Auto) 0.400, Neut % (Auto) 65.3, Lymph % (Auto) 21.2, [place] % (Auto) 7.0, Eos % (Auto) 5.3 H, Baso % (Auto) 0.8, Absolute Neuts (auto) 5.0, Absolute Lymphs (auto) 1.61, Nucleated RBC % 0, Sodium 139, Potassium 4.2, Chloride 104, Carbon Dioxide 22.8, Anion Gap 12, BUN 13, Creatinine 0.76, Estim Creat Clear Calc 68.12, Est GFR (MDRD) Non-Af 86, BUN/Creatinine Ratio 16.7, Glucose 109 H, Calcium 9.2, TSH 1.390 Physical Exam Narrative Seen and examined. Patient has difficulty in ambulation, recurrent fall 2 falls in last 1 week. Unsteady gait and poor balance and equilibrium Physical exam General: Alert, Oriented x3, Cooperative HEENT: Atraumatic, PERRLA, EOMI, Normocephalic Oral: No Gingival or Mucosal Lesions/ Ulcerations Neck: Supple, No JVD, Negative Carotid Bruits Chest wall/Lungs: Air entry diminished in bilateral lung bases. No crepitation/rhonchi Cardiovascular: Regular rate, Regular Rhythm, Normal S1, Normal S2, systolic murmur Abdomen: Bowel Sounds Present, Soft, Non Tender, Non-Distended : No dysuria. No renal angle tenderness. No suprapubic tenderness. Extremities: No edema, Capillary Refill Less than 3 Seconds Skin: No rashes, No breakdown Musculoskeletal: No Tenderness to Palpation of Joints or Extremities. Muscle power 4/5 at major joints. ROM restricted knee joints. Neurological: Cranial nerves II-XII grossly intact, DTR 2+/4. No acute focal neurological deficit. Psych/Mental Status: Normal Affect, Appropriate. Assessment & Plan Assessment/Plan (1) Failure to thrive: PLAN: Plan 89-year-old gentleman was admitted because of not able to take care of himself, recurrent fall, decreased equilibrium and steady gait. # Failure to thrive/inability to care for self -Family very concerned about patient's ability to care for self -PT/OT -Case management and social work consults 10/16: Patient will need fci and subacute rehab. # Chronic pain secondary to lumbar stenosis with multiple lumbar surgeries -Continue patient's home regimen while admitted #Type 2 diabetes mellitus -Glucose was 124 in ED. Glucose 109 BMP. Accu-Cheks every 6 hours. 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 Saulo Schultz MD Status:ADM ALEX Location: [place] [address] Objective Data Objective Data Vital Signs: Vital Signs Temp Pulse Resp BP Pulse Ox O2 Del Method 97.4 F L 100 18 121/77 H 97 Room Air 10/16/24 08:16 10/16/24 08:16 10/16/24 08:16 10/16/24 08:16 10/16/24 08:16 10/16/24 08:16 Oxygen Delivery Method Room Air Weight: 190 lb 4.143 oz Body Mass Index (BMI) 28.0 Lab / Micro Data 10/16/24 06:56 10/16/24 06:56 Labs: Laboratory Results - last 24 hr 10/15/24 13:19: POC Glucose 124 H 10/15/24 18:00: WBC 6.0, RBC 4.12 L, Hgb 12.6 L, Hct 39.9 L, MCV 96.8 H, MCH 30.6, MCHC 31.6 L, RDWStd Deviation 51.2 H, RDW Coeff of May 14.5, Plt Count 195, MPV 9.4, Immature Gran % (Auto) 0.500, Neut % (Auto) 65.3, Lymph % (Auto) 21.4, [place] % (Auto) 6.4, Eos % (Auto) 5.2 H, Baso % (Auto) 1.2 H,Absolute Neuts(auto) 3.9, Absolute Lymphs (auto) 1.28, Nucleated RBC % 0, Sodium 138, Potassium 4.0, Chloride 103, Carbon Dioxide 12.7 L, Anion Gap 22 H, BUN 11, Creatinine 0.74, Estim Creat Clear Calc 69.15, Est GFR (MDRD) Non-Af 86, BUN/Creatinine Ratio 14.7, Glucose 125 H, Calcium 9.0 10/15/24 18:41: Lactic Acid 1.7 10/15/24 21:47: POC Glucose 118 H 10/16/24 06:56: WBC 7.6, RBC 4.08 L, Hgb 12.5 L, Hct 38.9 L, MCV 95.3 H, MCH 30.6, MCHC 32.1, RDW Std Deviation 49.9 H, RDW Coeff of May 14.6, Plt Count 235,MPV 9.6, Immature Gran % (Auto) 0.400, Neut % (Auto) 65.3, Lymph % (Auto) 21.2, [place] % (Auto) 7.0, Eos % (Auto) 5.3 H, Baso % (Auto) 0.8, Absolute Neuts (auto) 5.0, Absolute Lymphs (auto) 1.61, Nucleated RBC % 0, Sodium 139, Potassium 4.2, Chloride 104, Carbon Dioxide 22.8, Anion Gap 12, BUN 13, Creatinine 0.76, Estim Creat Clear Calc 68.12, Est GFR (MDRD) Non-Af 86, BUN/Creatinine Ratio 16.7, Glucose 109 H, Calcium 9.2, TSH 1.390 Physical Exam Narrative Seen and examined. Patient has difficulty in ambulation, recurrent fall 2 falls in last 1 week. Unsteady gait and poorbalance and equilibrium Physical exam General: Alert, Oriented x3, Cooperative HEENT: Atraumatic, PERRLA, EOMI, Normocephalic Oral: No Gingival or Mucosal Lesions/ Ulcerations Neck: Supple, No JVD, Negative Carotid Bruits Chest wall/Lungs: Air entry diminished in bilateral lung bases. No crepitation/rhonchi Cardiovascular: Regular rate, Regular Rhythm, Normal S1, Normal S2, systolic murmur Abdomen: Bowel Sounds Present, Soft, Non Tender, Non-Distended : No dysuria. No renal angle tenderness. No suprapubic tenderness. Extremities: No edema, Capillary Refill Less than 3 Seconds Skin: No rashes, No breakdown Musculoskeletal: No Tenderness to Palpation of Joints or Extremities. Muscle power 4/5 at major joints. ROM restricted knee joints. Neurological: Cranial nerves II-XII grossly intact, DTR 2+/4. No acute focal neurological deficit. Psych/Mental Status: Normal Affect, Appropriate. Assessment & Plan Assessment/Plan (1) Failure to thrive: PLAN: Plan 89-year-old gentleman was admitted because of not able to take care of himself, recurrent fall, decreased equilibrium and steady gait. # Failure to thrive/inability to care for self -Family very concerned about patient's ability to care for self -PT/OT -Case management and social work consults 10/16: Patient will need fci and subacute rehab. # Chronic pain secondary to lumbar stenosis with multiple lumbar surgeries -Continue patient's home regimen while admitted #Type 2 diabetes mellitus -Glucose was 124 in ED. Glucose 109 BMP. Accu-Cheks every 6 hours. Hypoglycemia protocol ordered #Chronic BPH with obstruction -Continue home medications #Seizure disorder -Presently maintained on Keppra -Continue home regimen #Chronic anticoagulation -Unclear indication, awaiting final med reconciliation, was continued as a home med in the ED so wewill continue #Gout -Continue home allopurinol #DVT ppx: Chronically anticoagulated on Xarelto Charges/Coding Visit Charges Inpatient E&M: 49695 Subs Hosp L2 10/16/24 1556 Cosigner Signature (if applicable): CC: ~ Signed [facility]04-01-2025 Telephone encounter Note* Telephone Encounter - Sharan Ayala MA - 10/16/2024 12:47 PM EDT Received visit linda from [facility]. Placed in provider's inbox for review. [facility]04-01-2025 Miscellaneous Notes* Telephone Encounter - Sharan Ayala MA - 10/16/2024 12:47 PM EDT Received visit linda from [facility]. Placed in provider's inbox for review. [facility] in this [facility] History and physical note Author Gemma Nava [facility] Note Date/Time October 15, 2024 6:3 5pm [facility] Medical Records Department [address] [place] [address] H&P Exam - Hospitalist 10/15/24 1820 MR#: [id number] Acct: [id number] Name: LINO WHEELER Rep #:[id number] : 1935 89 From: Gemma Nava MD PCP: Saulo Schultz MD Status:REG ER Location: ED HPI - General General Date of Admission: 10/15/24 Date of Service: 10/15/24 Chief Complaint: Inability to care for self HPI Narrative LINO WHEELER, is a 89-year-old male history of chronic pain, diabetes, seizuredisorder, BPH, chronic anticoagulation on Xarelto presented to [facility] ED 10/15/2024 due to concerns about him caring for himself at home.? Patient's was admitted to the ICU yesterday and she is primary caregiver, granddaughter went to his house today and was concerned about his ability to care for himself and had patient come to the ED.? Patient initially refused admission and was evaluated by ED physician felt to have capacity to make that decision, plan was for patient to go home however family very concerned about this and son refused to come pick patient up, ultimately patient was agreeable to admission for placement.? Labs ordered and hospitalist contacted for admission.? Patient evaluated at bedside and reports he feels fine and has no acute complaints. His last fall was about a week ago and reports he has had a little bit of swelling in his feet but no other new or acute changes, has some chronic shortness of breath which has not changed and no cough, during his fall he did not injure anything new or have any additional complaints, has chronic back pain from multiple lumbar surgeries which is at his baseline. [facility] Medical History History of seizure disorder Gout Drooping eyelid Home Medications ?Medication ?Instructions ?Recorded ?Last Taken ?Type hydroxyzine pamoate 25 mg capsule 50 mg (2 x 25 mg) PO QHS PRN 01/04/22 Unknown Rx insomnia #30 CAPSULES allopurinol 300 mg tablet 300 mg PO DAILY 10/15/24 Unk nown History amitriptyline 25 mg tablet 25 mg PO DAILY 10/15/24 Unk nown History insulin glargine 100 unit/mL (3 unit subcut 10/15/24 U nknown History mL) subcutaneous pen (Lantus Solostar U-100 Insulin) levetiracetam 500 mg tablet 500 mg PO BID 10/15/24 Unk nown History oxycodone myristate 18 mg capsule 18 mg PO BID 5 Unknown History sprinkle extended release 12hr(DON'T CRUSH) (Xtampza ER) oxymetazoline 0.05 % nasal spray 2 spray intranasal BI D 10/15/24 Unknown History (12 Hour Nasal Relief [place]) rivaroxaban 20 mg tablet (Xarelto) 20 mg PO DAILY 09/17 08/11 Unknown History rosuvastatin 10 mg tablet 10 mg PO QHS 10/15/24 Unknow n History sitagliptin phosphate 100 mg 100 mg PO DAILY 10/15/24 Unknown History tablet (Januvia) tamsulosin 0.4 mg capsule 0.4 mg PO DAILY 10/15/24 Unk nown History Allergy/AdvReac Type Severity Reaction Status Date / Time Penicillins Allergy Mild Hives Verified 02/16/21 14:55 hydromorphone (From Dilaudid) Allergy Hallucinati Verified 02/16/21 14:55 ons ketorolac (From Toradol) Allergy Itching Verified 02/16/21 14:55 Family History Father Tuberculosis Surgical History History of back surgery Hx of laminectomy Social History household members: spouse housing: house Smoking Status: Never smoker Smokeless tobacco user: chewing tobacco alcohol intake: never what type of physical activity do you participate in: none do you feel safe at home: Yes ROS ROS Narrative General: Denies fever/chills HENT: Denies headache, denies stuffy nose, denies sore throat EYES: Denies changes in vision Resp: Denies cough, some chronic shortness of breath not worse than usual Cardiac: Denies chest pain GI: Denies abdominal pain, denies changes in bowel, denies nausea/vomiting : Denies changes in urination Extremity: Possibly some slight swelling in his ankles MSK: Denies weakness, has some chronic back pain not worse than usual Neuro: Denies any numbness/tingling Heme: Denies any bleeding or bruising Skin: Denies rashes Psychiatric: No complaints voiced Vital Signs Vital Signs Vital Signs: 10/15/24 11:14 10/15/24 11:19 10/15/24 13:25 Temperature 97.5 F L Temperature Source Oral Pulse Rate 67 73 Respiratory Rate 16 16 Respiratory Effort Normal Non-Labored Respiratory Pattern Normal Blood Pressure 162/87 H 156/78 H Blood Pressure Mean 112 104 Pulse Ox 95 97 Oxygen Delivery Method Room Air Room Air 10/15/24 14:55 Temperature 98.3 F Temperature Source Pulse Rate 74 Respiratory Rate 19 H Respiratory Effort Respiratory Pattern Blood Pressure 165/79 H Blood Pressure Mean 107 Pulse Ox 99 Oxygen Delivery Method Weight Weight: 89.2 kg Body Mass Index (BMI) 29.0 Physical Exam Narrative General: Alert, no apparent distress HEENT: Atraumatic, normocephalic Eyes: Anicteric, normal conjunctiva, extraocular movements grossly intact Neck: Supple Respiratory: Clear to auscultation bilaterally, normal respiratory effort Cardiovascular: Regular rate and rhythm GI: Soft, nontender, nondistended Extremities: No significant lower extremity edema Musculoskeletal: Moving all extremities Neuro: No overt focal neurological deficits Skin: No rashes appreciated Psych: Overall cooperative Results Lab / Micro Data 10/15/24 18:00 10/15/24 18:00 Labs: Laboratory Results - last 24 hr 10/15/24 13:19: POC Glucose 124 H 10/15/24 18:00: WBC 6.0, RBC 4.12 L, Hgb 12.6 L, Hct 39.9 L, MCV 96.8 H, MCH 30.6, MCHC 31.6 L, RDW Std Deviation 51.2 H, RDW Coeff of May 14.5, Plt Count 195, MPV 9.4, Immature Gran % (Auto) 0.500, Neut % (Auto) 65.3, Lymph % (Auto) 21.4, [place] % (Auto) 6.4, Eos % (Auto) 5.2 H, Baso % (Auto) 1.2 H, Absolute Neuts(auto) 3.9, Absolute Lymphs (auto) 1.28, Nucleated RBC % 0 Assessment & Plan Assessment/Plan (1) Failure to thrive: PLAN: Plan # Failure to thrive/inability to care for self -Family very concerned about patient's ability to care for self -PT/OT -Case management and social work consults # Chronic pain secondary to lumbar stenosis with multiple lumbar surgeries -Continue patient's home regimen while admitted #Type 2 diabetes mellitus -Glucose checks and sliding scale insulin -Unclear how much long-acting insulin patient is supposed to be on, patient verypoor historian -Will have glucose checks and sliding scale insulin all awaiting final med rec update, if patient persistently elevated can add scheduled long-acting empirically, [id number] glucose only 124 in the ED #Chronic BPH with obstruction -Continue home medications #Seizure disorder -Presently maintained on Keppra -Continue home regimen #Chronic anticoagulation -Unclear indication, awaiting final med reconciliation, was continued as a home med in the ED so we will continue #Gout -Continue home allopurinol #DVT ppx: Chronically anticoagulated on Xarelto Gemma Nava MD Charges/Coding Visit Charges Inpatient E&M: 74223 Init Hosp L1 10/15/24 1835 <Electronically signed by Gemma Nava MD> Cosigner Signature (if applicable): CC: Dr. Gemma Nava MD; Saulo Schultz MD~ Signed [facility] Work Phone: 1(314) 356-807503-31-2025 Evaluation note* Diagnosis Onset Date Resolution Status Admit Date Failure to thrive acute September 172024 6:29pm History of diabetes mellitus , type II acute October 15, 2024 6:29pm [facility] Work Phone: 1([phone]) 192-594903-31-2025 Evaluation note* Diagnosis Onset Date Resolution Status Admit Date Failure to thrive inactive September 172024 6:29pm History of diabetes mellitus , type II inactive October 15, 2024 6:29pm [facility] Work Phone: [phone]) 882-910903-31-2025 Evaluation note* Diagnosis Onset Date Resolution Status Admit Date Failure to thrive inactive September 172024 6:29pm History of diabetes mellitus , type II inactive October 15, 2024 6:29pm Debility acute October 30 11:15am Spinal stenosis of lumbar region with radiculopathy acute October 30, 2024 11:15am Acute exacerbation of chroni c low back pain resolved October 30, 2024 11:15am Fall from slip, trip, or stumble resolved October 30, 2024 11:15am [facility] Work Phone: 1([phone]) 542-794503-31-2025 Evaluation note* Diagnosis Onset Date Resolution Status Admit Date Failure to thrive inactive September 172024 6:29pm History of diabetes mellitus , type II inactive October 15, 2024 6:29pm Debility acute October 30 11:15am Spinal stenosis of lumbar region with radiculopathy acute October 30, 2024 11:15am Acute exacerbation of chroni c low back pain resolved October 30, 2024 11:15am Fall from slip, trip, or stumble resolved October 30, 2024 11:15am Accidental fall acute November 26, 2024 9:39pm Acute lumbar myofascial strain acute November 26, 2024 9:39pm Contusion of buttock acute November 26, 2024 9:39pm Debility acute November 26, 2024 9:39pm History of back surgery acute 2024 9:39pm History of seizure disorder acute November 26, 2024 9:39pm Hx of laminectomy acute November 9:39pm Spinal stenosis of lumbar region with radiculopathy acute November 262024 9:39pm [facility] Work Phone: [phone]) 152-443403-31-2025 History and physical note [facility] Medical Records Department [address] [place] [address] H&P Exam - Hospitalist 10/15/24 1820 MR#: [id number] Acct: [id number] Name: LINO WHEELER Rep #:[id number] : 1935 89 From: Gemma Nava MD PCP: Saulo Schultz MD Status:REG ER Location: ED HPI - General General Date of Admission: 10/15/24 Date of Service: 10/15/24 Chief Complaint: Inability to care for self HPI Narrative LINO WHEELER, is a 89-year-old male history of chronic pain, diabetes, seizuredisorder, BPH, chronic anticoagulation on Xarelto presented to [facility] ED 10/15/2024 due to concerns about him caring for himself at home.? Patient's was admitted to the ICU yesterday and she is primary caregiver, granddaughter went to his house today and was concerned about his ability to care for himself and had patient come to the ED.? Patient initially refused admission and was evaluated byED physician felt to have capacity to make that decision, plan was for patient to go home however family very concerned about this and son refused to come pick patient up, ultimately patient was agree able to admission for placement.? Labs ordered and hospitalist contacted for admission.? Patient evaluated at bedside and reports he feels fine and has no acute complaints. His last fall was about a week ago and reports he has had a little bit of swelling in his feet but no other new or acute changes, has some chronic shortness of breath which has not changed and no cough, during his fall he did not injure anything new or have any additional complaints, has chronic back pain from multiple lumbar surgeries which is at his baseline. [facility] Medical History History of seizure disorder Gout Drooping eyelid Home Medications ?Medication ?Instructions ?Recorded ?Last Taken ?Type hydroxyzine pamoate 25 mg capsule 50 mg (2 x 25 mg) PO QHS PRN 01/04/22 Unknown Rx insomnia #30 CAPSULES allopurinol 300 mg tablet 300 mg PO DAILY 10/15/24 Unk nown History amitriptyline 25 mg tablet 25 mg PO DAILY 10/15/24 Unk nown History insulin glargine 100 unit/mL (3 unit subcut 10/15/24 U nknown History mL) subcutaneous pen (Lantus Solostar U-100 Insulin) levetiracetam 500 mg tablet 500 mg PO BID 10/15/24 Unk nown History oxycodone myristate 18 mg capsule 18 mg PO BID 5 Unknown History sprinkle extended release 12hr(DON'T CRUSH) (Xtampza ER) oxymetazoline 0.05 % nasal spray 2 spray intranasal BI D 10/15/24 Unknown History (12 Hour Nasal Relief [place]) rivaroxaban 20 mg tablet (Xarelto) 20 mg PO DAILY 09/17 08/11 Unknown History rosuvastatin 10 mg tablet 10 mg PO QHS 10/15/24 Unknow n History sitagliptin phosphate 100 mg 100 mg PO DAILY 10/15/24 Unknown History tablet (Januvia) tamsulosin 0.4 mg capsule 0.4 mg PO DAILY 10/15/24 Unk nown History Allergy/AdvReac Type Severity Reaction Status Date / Time Penicillins Allergy Mild Hives Verified 02/16/21 14:55 hydromorphone (From Dilaudid) Allergy Hallucinati Verified 02/16/21 14:55 ons ketorolac (From Toradol) Allergy Itching Verified 02/16/21 14:55 Family History Father Tuberculosis Surgical History History of back surgery Hx of laminectomy Social History household members: spouse housing: house Smoking Status: Never smoker Smokeless tobacco user: chewing tobacco alcohol intake: never what type of physical activity do you participate in: none do you feel safe at home: Yes ROS ROS Narrative General: Denies fever/chills HENT: Denies headache, denies stuffy nose, denies sore throat EYES: Denies changes in vision Resp: Denies cough, some chronic shortness of breath not worse than usual Cardiac: Denies chest pain GI: Denies abdominal pain, denies changes in bowel, denies nausea/vomiting : Denies changes in urination Extremity: Possibly some slight swelling in his ankles MSK: Denies weakness, has some chronic back pain not worse than usual Neuro: Denies any numbness/tingling Heme: Denies any bleeding or bruising Skin: Denies rashes Psychiatric: No complaints voiced Vital Signs Vital Signs Vital Signs: 10/15/24 11:14 10/15/24 11:19 10/15/24 13:25 Temperature 97.5 F L Temperature Source Oral Pulse Rate 67 73 Respiratory Rate 16 16 Respiratory Effort Normal Non-Labored Respiratory Pattern Normal Blood Pressure 162/87 H 156/78 H Blood Pressure Mean 112 104 Pulse Ox 95 97 Oxygen Delivery Method Room Air Room Air 10/15/24 14:55 Temperature 98.3 F Temperature Source Pulse Rate 74 Respiratory Rate 19 H Respiratory Effort Respiratory Pattern Blood Pressure 165/79 H Blood Pressure Mean 107 Pulse Ox 99 Oxygen Delivery Method Weight Weight: 89.2 kg Body Mass Index (BMI) 29.0 Physical Exam Narrative General: Alert, no apparent distress HEENT: Atraumatic, normocephalic Eyes: Anicteric, normal conjunctiva, extraocular movements grossly intact Neck: Supple Respiratory: Clear to auscultation bilaterally, normal respiratory effort Cardiovascular: Regular rate and rhythm GI: Soft, nontender, nondistended Extremities: No significant lower extremity edema Musculoskeletal: Moving all extremities Neuro: No overt focal neurological deficits Skin: No rashes appreciated Psych: Overall cooperative Results Lab / Micro Data 10/15/24 18:00 10/15/24 18:00 Labs: Laboratory Results - last 24 hr 10/15/24 13:19: POC Glucose 124 H 10/15/24 18:00: WBC 6.0, RBC 4.12 L, Hgb 12.6 L, Hct 39.9 L, MCV 96.8 H, MCH 30.6, MCHC 31.6 L, RDWStd Deviation 51.2 H, RDW Coeff of May 14.5, Plt Count 195, MPV 9.4, Immature Gran % (Auto) 0.500, Neut % (Auto) 65.3, Lymph % (Auto) 21.4, [place] % (Auto) 6.4, Eos % (Auto) 5.2 H, Baso % (Auto) 1.2 H,Absolute Neuts(auto) 3.9, Absolute Lymphs (auto) 1.28, Nucleated RBC % 0 Assessment & Plan Assessment/Plan (1) Failure to thrive: PLAN: Plan # Failure to thrive/inability to care for self -Family very concerned about patient's ability to care for self -PT/OT -Case management and social work consults # Chronic pain secondary to lumbar stenosis with multiple lumbar surgeries -Continue patient's home regimen while admitted #Type 2 diabetes mellitus -Glucose checks and sliding scale insulin -Unclear how much long-acting insulin patient is supposed to be on, patient verypoor historian -Will have glucose checks and sliding scale insulin all awaiting final med rec update, if patient persistently elevated can add scheduled long-acting empirically, [id number] glucose only 124 in the ED #Chronic BPH with obstruction -Continue home medications #Seizure disorder -Presently maintained on Keppra -Continue home regimen #Chronic anticoagulation -Unclear indication, awaiting final med reconciliation, was continued as a home med in the ED so wewill continue #Gout -Continue home allopurinol #DVT ppx: Chronically anticoagulated on Xarelto Gemma Nava MD Charges/Coding Visit Charges Inpatient E&M: 19900 Init Hosp L1 10/15/24 8110 Cosigner Signature (if applicable): CC: Dr. Gemma Nava MD; Saulo Schultz MD~ Signed [facility]03-31-2025 Discharge summary Author Kelsy Castle [facility] Note Date/Time October 15, 2024 4:2 6pm [facility] Medical Records Department [address] [place] [address] Emergency Department Summary 10/15/24 MR#: [id number] Acct: [id number] Name: LINO WHEELER Rep #:[id number] : 1935 89 From: Kelsy ODONNELL PCP: Saulo Schultz MD Status:REG ER Location: ED ADDENDUM by Dr. Aamir Auguste DO on 10/15/24 at 1626 Update: 1625 hrs. Nursing fish hatchery supervisor comes to me and tells me that the family is called her several times stating that he cannot go home. I do not disagree that the patient would benefit from assisted living or detention facility. Howeverhe does not wish this and expressed that to me directly. He is alert oriented x3 my examination appears to have the capacity to make this decision. I understand that it is a liability for the patient to go home but I cannot legally force someone to do something that they cannot do while they have the capacity to make that decision. I have asked the nursing fish hatchery supervisor to please go in and speak with the patient and see if they can convince him to stay. 10/15/24 1626<Electronically signed by Aamir Auguste DO> Cosigner Signature (if applicable): 10/15/24 1620 <Electronically signed by Aamir Auguste DO> cc: Saulo Schultz MD ~* Signed HPI <BLAS Cuellar - Last Filed: 10/15/24 15:09> History of Present Illness Chief Complaint: General Illness Narrative Narrative: Patient resenting today after family had concerns that he would not be able to take care of himself while his is currently here in the ICU. She is his primary caregiver, he she was admitted to the hospital yesterday. His granddaughter felt that he should be placed for failure to thrive due to concerns that he would not be able to feed or take care of himself. Patient reports that he last ate yesterday afternoon but has not had time to eat yet today. He does not have any acute complaints. He is alert and oriented x 4. He reports that he is not wanting to be placed in a facility. [facility] <BLAS Cuellar - Last Filed: 10/15/24 15:09> [facility] Medical History History of seizure disorder Gout Drooping eyelid Home Medications ?Medication ?Instructions ?Recorded ?Last Taken ?Type hydroxyzine pamoate 25 mg capsule 50 mg (2 x 25 mg) PO QHS PRN 01/04/22 Unknown Rx insomnia #30 CAPSULES amitriptyline 25 mg tablet 25 mg PO DAILY 10/15/24 Unk nown History insulin glargine 100 unit/mL (3 unit subcut 10/15/24 U nknown History mL) subcutaneous pen (Lantus Solostar U-100 Insulin) levetiracetam 500 mg tablet 500 mg PO BID 10/15/24 Unk nown History oxycodone myristate 18 mg capsule 18 mg PO BID 5 Unknown History sprinkle extended release 12hr(DON'T CRUSH) (Xtampza ER) oxymetazoline 0.05 % nasal spray 2 spray intranasal BI D 10/15/24 Unknown History (12 Hour Nasal Relief [place]) rivaroxaban 20 mg tablet (Xarelto) 20 mg PO DAILY 09/17 08/11 Unknown History rosuvastatin 10 mg tablet 10 mg PO QHS 10/15/24 Unknow n History sitagliptin phosphate 100 mg 100 mg PO DAILY 10/15/24 Unknown History tablet (Januvia) tamsulosin 0.4 mg capsule 0.4 mg PO DAILY 10/15/24 Unk nown History Allergy/AdvReac Type Severity Reaction Status Date / Time Penicillins Allergy Mild Hives Verified 02/16/21 14:55 hydromorphone (From Dilaudid) Allergy Hallucinati Verified 02/16/21 14:55 ons ketorolac (From Toradol) Allergy Itching Verified 02/16/21 14:55 Family History Father Tuberculosis Surgical History History of back surgery Hx of laminectomy Social History household members: spouse housing: house Smoking Status: Never smoker Smokeless tobacco user: chewing tobacco alcohol intake: never what type of physical activity do you participate in: none do you feel safe at home: Yes ROS <BLAS Cuellar - Last Filed: 10/15/24 15:09> ROS ED Constitutional Constitutional ED: Denies chills, fever(s) or sweats Cardiovascular Cardiovascular: Denies chest pain Respiratory/Chest Respiratory/Chest: Denies cough or dyspnea Gastrointestinal Gastrointestinal: Denies abdominal pain, nausea or vomiting Genitourinary Genitourinary ED: Denies dysuria, hematuria or urinary urgency Musculoskeletal Musculoskeletal: Denies arthralgias or myalgias Integumentary Denies rash Neurologic Neurologic: Denies weakness EXAM <BLAS Cuellar - Last Filed: 10/15/24 15:09> Physical Exam Const Vital Signs: 10/15/24 11:14 10/15/24 11:19 10/15/24 13:25 Temperature 97.5 F L Temperature Source Oral Pulse Rate 67 73 Respiratory Rate 16 16 Respiratory Effort Normal Non-Labored Respiratory Pattern Normal Blood Pressure 162/87 H 156/78 H Blood Pressure Mean 112 104 Pulse Ox 95 97 Oxygen Delivery Method Room Air Room Air 10/15/24 14:55 Temperature 98.3 F Temperature Source Pulse Rate 74 Respiratory Rate 19 H Respiratory Effort Respiratory Pattern Blood Pressure 165/79 H Blood Pressure Mean 107 Pulse Ox 99 Oxygen Delivery Method Positive well nourished, well developed and no apparent distress General Appearance ED: well developed HEENT Reports normocephalic and head/scalp atraumatic Mouth ED: Yes moist mucous membranes normal Eyes PERRL and EOMs intact bilaterally Neck full ROM and supple Chest Wall inspection of chest normal Resp normal respiratory effort and clear to auscultation bilaterally Cardio regular rate and regular rhythm GI soft to palpation, non-tender, non-distended and no masses Back/Spine normal ROM and normal to inspection Extremity normal to inspection and full ROM Neuro oriented x3, CN's II-XII intact bilaterally, moves all extremities, no focal motor deficits and no sensory deficits noted Sensorium / Orientation: awake and alert Psych mental status grossly normal and thought process normal Skin no rashes or lesions noted and no wounds <Dr. Aamir Auguste DO - Last Filed: 10/15/24 15:44> Physical Exam Const Vital Signs: 10/15/24 11:14 10/15/24 11:19 10/15/24 13:25 Temperature 97.5 F L Temperature Source Oral Pulse Rate 67 73 Respiratory Rate 16 16 Respiratory Effort Normal Non-Labored Respiratory Pattern Normal Blood Pressure 162/87 H 156/78 H Blood Pressure Mean 112 104 Pulse Ox 95 97 Oxygen Delivery Method Room Air Room Air 10/15/24 14:55 Temperature 98.3 F Temperature Source Pulse Rate 74 Respiratory Rate 19 H Respiratory Effort Respiratory Pattern Blood Pressure 165/79 H Blood Pressure Mean 107 Pulse Ox 99 Oxygen Delivery Method [facility] <BLAS Cuellar - Last Filed: 10/15/24 15:09> [facility] Narrative Medical decision making narrative: Patient presenting today after his granddaughter had concerns for failure to thrive due to his and primary caregiver being admitted to the ICU yesterday. Granddaughter had concerns that he would not be able to administer his diabetes medication properly or cook for himself. He does not have any family nearby that he can depend on to help him. Patient currently has no acutecomplaints, clinically he is well-appearing, he has unremarkable vital signs. He reports that he is not wanting to be placed in a facility and wants to go home. Glucose was checked here, and is 124. Clinically he does not appear dehydrated. He does have capacity to make this decision, he is not confused. He does not want to be placed. I did get social work involved, they will try toset him up for resources to allow meals to come out to his house and a nurse to come out and help him with his medication until his can come back home. Patient does feel confident that he can make meals for himself and take his medication. Given he does have the capacity to make this decision, he will be discharged home in stable condition. He understands that he can return at any time. Lab Data Attestation: I reviewed the patient's lab results. Labs: Laboratory Results - last 24 hr 10/15/24 13:19 POC Glucose 124 H <Dr. Aamir Auguste, DO - Last Filed: 10/15/24 15:44> MDM History & Record Review Discussion w/independent historian: Patient and Family Lab Data Labs: Laboratory Results - last 24 hr 10/15/24 13:19 POC Glucose 124 H Management Discussion w/another healthcare provider: fibreglass lay up worker/Case management Treatment and Re-Evaluation :: I have personally performed a face to face assessment of the patient and have reviewed the ROBY Note. I performed a substantive portion of the visit including all aspects of the following. My raza findings include: History is 89-year-old male was brought to the emergency department by family out of concern for his wellbeing. Patient's was admitted yesterday into the intensive care unit. Family has concerns about his ability to care for himself at home without her as she was a main caregiver. They have concerns that perhaps he is abusing pain medication and whether or not he ate yesterday. Patient states that he cooked eggs and a salad yesterday. Family states that hedid not answer the door when they came to get him this morning so they came in to his house and had a hard time waking him up. He said he used when he awoke. Patient states he has access to his medicines. He knows how to get refills. There was a report that APS was called for him yesterday. Exam is afebrile vital signs are stable. Patient appears well-kept. He is not in any distress. He is alert and oriented x 3. Medical Decison Making patient was in the emergency department and we had socialwork evaluate him and work intermittently with his family. On my examination I find that the patient does have capacity to make his own decisions and that these are consistent with his values at this time. He is able to communicate and choice of going home as compared to being admitted or placed and he can communicate this clearly to me. He does appear to balance what I am telling himas I expressed the concerns of his family and social work versus what he believes to be true. He is able to verbalize the benefits of going home versus being admitted or transferred. He does not wish to be admitted into the hospital or placed into a skilled or assisted living facility. He states that he is able to care for himself and has a home and does not understand why he would need to leave the home. He is worried that if he is admitted or transferred that he would not be able to see his . He states that he understands that if he gets to a point where he cannot care for himself that he can reach out to family or 911 and get help. I believe his choice is sound. He is able to tell me that 5 years ago he gave up driving because his vision was poor. He knows how to reach his primary care doctor. He does have family that can check on him. I would have social work reach out to [facility]PS as well as to explore apossible home health care option. Discharge Plan Triage Chief Complaint: General Illness ED Midlevel Provider: Kelsy Castle ED Provider: Aamir Auguste Dx/Rx/DC Orders Clinical Impression: History of diabetes mellitus, type II, Encounter for adult wellness visit Instructions: ED Diabetes- Overview Prescriptions: No Action hydroxyzine pamoate [hydroxyzine pamoate] 25 mg capsule 50 mg PO QHS PRN (Reason: insomnia) Qty: 30 0RF levetiracetam 500 mg tablet 500 mg PO BID oxymetazoline [12 Hour Nasal Relief [place]] 0.05 % spray,non-aerosol 2 spray intranasal BID Xtampza ER 18 mg cap,sprinkl,ER12hr(DONT CRUSH) 18 mg PO BID Rx Instructions: must administer with a meal/food Januvia 100 mg tablet 100 mg PO DAILY amitriptyline 25 mg tablet 25 mg PO DAILY insulin glargine [Lantus Solostar U-100 Insulin] 100 unit/mL (3 mL) insulin pen subcut Patient Comments: unknown dosage tamsulosin 0.4 mg capsule 0.4 mg PO DAILY Xarelto 20 mg tablet 20 mg PO DAILY Rx Instructions: must administer with evening meal rosuvastatin 10 mg tablet 10 mg PO QHS Primary Care Provider: Saulo Schultz Referrals: Saulo Schultz MD [Primary Care Provider] - 5-7 Days Activity Restrictions/Additional Instructions: Follow-up with your PCP. Return for any other concerns. Print Language: [place] Disposition Disposition: Home, Self Care Capacity <Dr. Aamir Auguste DO - Last Filed: 10/15/24 15:44> Capacity Assessment Tool Patient lacks Decision Making Capacity: unable to understand, reason and deliberate health related choices: No Risk to self and or others?: No Risk of leaving the patient care unit and or hospital?: Yes What to do if you have Problems For any increased pain, shortness of breath, bleeding, nausea or vomiting, chestpain, or any unexpected problems, contact your Primary Care Provider. Call [facility] ([phone]) or report to the closest Emergency Room. Call 911 if necessary. 10/15/24 1509 <Electronically signed by Kelsy ODONNELL> Cosigner Signature (if applicable): 10/15/24 1620 <Electronically signed by Aamir Auguste DO> CC: Saulo Schultz MD ~ Signed [facility] Work Phone: 1(647) 280-486203-31-2025 Discharge summary [facility] Medical Records Department [address] [place] [address] Emergency Department Summary 10/15/24 MR#: [id number] Acct: [id number] Name: LINO WHEELER Rep #:[id number] : 1935 89 From: Kelsy ODONNELL PCP: Saulo Schultz MD Status:REG ER Location: ED ADDENDUM by Dr. Aamir Auguste DO on 10/15/24 at 1626 Update: 1625 hrs. Nursing fish hatchery supervisor comes to me and tells me that the family is called her several times stating that he cannot go home. I do not disagree that the patient would benefit from assisted living or detention facility. Howeverhe does not wish this and expressed that to me directly. He is alert oriented x3 my examination appears to have the capacity to make this decision. I understand that it is aliability for the patient to go home but I cannot legally force someone to do something that they cannot do while they have the capacity to make that decision. I have asked the nursing fish hatchery supervisor to please go in and speak with the patient and see if they can convince him to stay. 10/15/246 Cosigner Signature (if applicable): 10/15/24 1620 cc: Saulo Schultz MD ~* Signed HPI History of Present Illness Chief Complaint: General Illness Narrative Narrative: Patient resenting today after family had concerns that he would not be able to take care of himselfwhile his is currently here in the ICU. She is his primary caregiver, he she was admitted to the hospital yesterday. His granddaughter felt that he should be placed for failure to thrive due to c oncerns that he would not be able to feed or take care of himself. Patient reports that he last ateyesterday afternoon but has not had time to eat yet today. He does not have any acute complaints. He is alert and oriented x 4. He reports that he is not wanting to be placed in a facility. [facility] Medical History History of seizure disorder Gout Drooping eyelid Home Medications ?Medication ?Instructions ?Recorded ?Last Taken ?Type hydroxyzine pamoate 25 mg capsule 50 mg (2 x 25 mg) PO QHS PRN 01/04/22 Unknown Rx insomnia #30 CAPSULES amitriptyline 25 mg tablet 25 mg PO DAILY 10/15/24 Unk nown History insulin glargine 100 unit/mL (3 unit subcut 10/15/24 U nknown History mL) subcutaneous pen (Lantus Solostar U-100 Insulin) levetiracetam 500 mg tablet 500 mg PO BID 10/15/24 Unk nown History oxycodone myristate 18 mg capsule 18 mg PO BID 5 Unknown History sprinkle extended release 12hr(DON'T CRUSH) (Xtampza ER) oxymetazoline 0.05 % nasal spray 2 spray intranasal BI D 10/15/24 Unknown History (12 Hour Nasal Relief [place]) rivaroxaban 20 mg tablet (Xarelto) 20 mg PO DAILY 09/17 08/11 Unknown History rosuvastatin 10 mg tablet 10 mg PO QHS 10/15/24 Unknow n History sitagliptin phosphate 100 mg 100 mg PO DAILY 10/15/24 Unknown History tablet (Januvia) tamsulosin 0.4 mg capsule 0.4 mg PO DAILY 10/15/24 Unk nown History Allergy/AdvReac Type Severity Reaction Status Date / Time Penicillins Allergy Mild Hives Verified 02/16/21 14:55 hydromorphone (From Dilaudid) Allergy Hallucinati Verified 02/16/21 14:55 ons ketorolac (From Toradol) Allergy Itching Verified 02/16/21 14:55 Family History Father Tuberculosis Surgical History History of back surgery Hx of laminectomy Social History household members: spouse housing: house Smoking Status: Never smoker Smokeless tobacco user: chewing tobacco alcohol intake: never what type of physical activity do you participate in: none do you feel safe at home: Yes ROS ROS ED Constitutional Constitutional ED: Denies chills, fever(s) or sweats Cardiovascular Cardiovascular: Denies chest pain Respiratory/Chest Respiratory/Chest: Denies cough or dyspnea Gastrointestinal Gastrointestinal: Denies abdominal pain, nausea or vomiting Genitourinary Genitourinary ED: Denies dysuria, hematuria or urinary urgency Musculoskeletal Musculoskeletal: Denies arthralgias or myalgias Integumentary Denies rash Neurologic Neurologic: Denies weakness EXAM Physical Exam Const Vital Signs: 10/15/24 11:14 10/15/24 11:19 10/15/24 13:25 Temperature 97.5 F L Temperature Source Oral Pulse Rate 67 73 Respiratory Rate 16 16 Respiratory Effort Normal Non-Labored Respiratory Pattern Normal Blood Pressure 162/87 H 156/78 H Blood Pressure Mean 112 104 Pulse Ox 95 97 Oxygen Delivery Method Room Air Room Air 10/15/24 14:55 Temperature 98.3 F Temperature Source Pulse Rate 74 Respiratory Rate 19 H Respiratory Effort Respiratory Pattern Blood Pressure 165/79 H Blood Pressure Mean 107 Pulse Ox 99 Oxygen Delivery Method Positive well nourished, well developed and no apparent distress General Appearance ED: well developed HEENT Reports normocephalic and head/scalp atraumatic Mouth ED: Yes moist mucous membranes normal Eyes PERRL and EOMs intact bilaterally Neck full ROM and supple Chest Wall inspection of chest normal Resp normal respiratory effort and clear to auscultation bilaterally Cardio regular rate and regular rhythm GI soft to palpation, non-tender, non-distended and no masses Back/Spine normal ROM and normal to inspection Extremity normal to inspection and full ROM Neuro oriented x3, CN's II-XII intact bilaterally, moves all extremities, no focal motor deficits and no sensory deficits noted Sensorium / Orientation: awake and alert Psych mental status grossly normal and thought process normal Skin no rashes or lesions noted and no wounds Physical Exam Const Vital Signs: 10/15/24 11:14 10/15/24 11:19 10/15/24 13:25 Temperature 97.5 F L Temperature Source Oral Pulse Rate 67 73 Respiratory Rate 16 16 Respiratory Effort Normal Non-Labored Respiratory Pattern Normal Blood Pressure 162/87 H 156/78 H Blood Pressure Mean 112 104 Pulse Ox 95 97 Oxygen Delivery Method Room Air Room Air 10/15/24 14:55 Temperature 98.3 F Temperature Source Pulse Rate 74 Respiratory Rate 19 H Respiratory Effort Respiratory Pattern Blood Pressure 165/79 H Blood Pressure Mean 107 Pulse Ox 99 Oxygen Delivery Method MDM MDM MDM Narrative Medical decision making narrative: Patient presenting today after his granddaughter had concerns for failure to thrive due to his wifeand primary caregiver being admitted to the ICU yesterday. Granddaughter had concerns that he wouldnot be able to administer his diabetes medication properly or cook for himself. He does not have any family nearby that he can depend on to help him. Patient currently has no acutecomplaints, clinical ly he is well-appearing, he has unremarkable vital signs. He reports that he is not wanting to be placed in a facility and wants to go home. Glucose was checked here, and is 124. Clinically he does not appear dehydrated. He does have capacity to make this decision, he is not confused. He does not want to be placed. I did get social work involved, they will try toset him up for resources to allow meals to come out to his house and a nurse to come out and help him with his medication until his can come back home. Patient does feel confident that he can make meals for himself and take his medication. Given he does have the capacity to make this decision, he will be discharged home in stable condition. He understands that he can return at any time. Lab Data Attestation: I reviewed the patient's lab results. Labs: Laboratory Results - last 24 hr 10/15/24 13:19 POC Glucose 124 H MDM History & Record Review Discussion w/independent historian: Patient and Family Lab Data Labs: Laboratory Results - last 24 hr 10/15/24 13:19 POC Glucose 124 H Management Discussion w/another healthcare provider: fibreglass lay up worker/Case management Treatment and Re-Evaluation :: I have personally performed a face to face assessment of the patient and have reviewed the ROBY Note. I performed a substantive portion of the visit including all aspects of the following. My raza findings include: History is 89-year-old male was brought to the emergency department by family out of concern for his wellbeing. Patient's was admitted yesterday into the intensive care unit. Family has concernsabout his ability to care for himself at home without her as she was a main caregiver. They have concerns that perhaps he is abusing pain medication and whether or not he ate yesterday. Patient states that he cooked eggs and a salad yesterday. Family states that hedid not answer the door when they came to get him this morning so they came in to his house and had a hard time waking him up. He saidhe used when he awoke. Patient states he has access to his medicines. He knows how to get refills. There was a report that APS was called for him yesterday. Exam is afebrile vital signs are stable. Patient appears well-kept. He is not in any distress. He is alert and oriented x 3. Medical Decison Making patient was in the emergency department and we had socialwork evaluate him and work intermittently with his family. On my examination I find that the patient does have capacityto make his own decisions and that these are consistent with his values at this time. He is able to communicate and choice of going home as compared to being admitted or placed and he can communicatethis clearly to me. He does appear to balance what I am telling himas I expressed the concerns of his family and social work versus what he believes to be true. He is able to verbalize the benefits of going home versus being admitted or transferred. He does not wish to be admitted into the hospitalor placed into a skilled or assisted living facility. He states that he is able to care for himselfand has a home and does not understand why he would need to leave the home. He is worried that if he is admitted or transferred that he would not be able to see his . He states that he understands that if he gets to a point where he cannot care for himself that he can reach out to family or 911and get help. I believe his choice is sound. He is able to tell me that 5 years ago he gave up driving because his vision was poor. He knows how to reach his primary care doctor. He does have family that can check on him. I would have social work reach out to [facility]PS as well as to explore apossible home health care option. Discharge Plan Triage Chief Complaint: General Illness ED Midlevel Provider: Kelsy Castle ED Provider: Aamir Auguste Dx/Rx/DC Orders Clinical Impression: History of diabetes mellitus, type II, Encounter for adult wellness visit Instructions: ED Diabetes- Overview Prescriptions: No Action hydroxyzine pamoate [hydroxyzine pamoate] 25 mg capsule 50 mg PO QHS PRN (Reason: insomnia) Qty: 30 0RF levetiracetam 500 mg tablet 500 mg PO BID oxymetazoline [12 Hour Nasal Relief [place]] 0.05 % spray,non-aerosol 2 spray intranasal BID Xtampza ER 18 mg cap,sprinkl,ER12hr(DONT CRUSH) 18 mg PO BID Rx Instructions: must administer with a meal/food Januvia 100 mg tablet 100 mg PO DAILY amitriptyline 25 mg tablet 25 mg PO DAILY insulin glargine [Lantus Solostar U-100 Insulin] 100 unit/mL (3 mL) insulin pen subcut Patient Comments: unknown dosage tamsulosin 0.4 mg capsule 0.4 mg PO DAILY Xarelto 20 mg tablet 20 mg PO DAILY Rx Instructions: must administer with evening meal rosuvastatin 10 mg tablet 10 mg PO QHS Primary Care Provider: Saulo Schultz Referrals: Saulo Schultz MD [Primary Care Provider] - 5-7 Days Activity Restrictions/Additional Instructions: Follow-up with your PCP. Return for any other concerns. Print Language: [place] Disposition Disposition: Home, Self Care Capacity Capacity Assessment Tool Patient lacks Decision Making Capacity: unable to understand, reason and deliberate health related choices: No Risk to self and or others?: No Risk of leaving the patient care unit and or hospital?: Yes What to do if you have Problems For any increased pain, shortness of breath, bleeding, nausea or vomiting, chestpain, or any unexpected problems, contact your Primary Care Provider. Call [facility] ([phone]) or report tothe closest Emergency Room. Call 911 if necessary. 10/15/24 1509 Cosigner Signature (if applicable): 10/15/24 1620 CC: Saulo Schultz MD ~ Signed [facility]03-25-2025 Telephone encounter Note* Telephone Encounter - Stephen Berry LPN - 10/09/2024 2:31 PM EDT Called and spoke with Radha read results per Cesar Murray result note 10/02/24. Pt declines podiatry referral but would like results faxed to pain management doctor, Dr. Garnica at [facility]. Fax sent [phone]. [facility]03-25-2025 Miscellaneous Notes* Telephone Encounter - Stephen Berry LPN - 10/09/2024 2:31 PM EDT Called and spoke with Radha, read results per Cesar Murray result note 10/02/24. Pt declines podiatry referral but would like results faxed to pain management doctor, Dr. Garnica at [facility]. Fax sent [phone]. * Telephone Encounter - Delia Chaves LPN - 10/02/2024 1:28 PM EDT Patient aware and would like to know what foot x ray showed. * Telephone Encounter - Cesar Murray APRN.CNP - 09/27/2024 8:59 AM EDT Let patient know that his labs looked good overall. He is due to see Dr. Schultz in the office, hasn't seen him in over 2 years, please schedule as 40 minute MWV Cesar Murray APRN.CNP documented in this encounterCh[facility]03-[facility] Telephone encounter Note * Telephone Encounter - Stephen Berry LPN - 10/03/2024 3:26 PM EDT Called and spoke with Radha, read results per Cesar Murray result note 10/02/24. Pt declines podiatry referral but would like results faxed to pain management doctor, Dr. Garnica at [facility]. Fax sent [phone]. [facility]03-19-2025 Miscellaneous Notes* Telephone Encounter - Stephen Berry LPN - 10/03/2024 3:26 PM EDT Called and spoke with Radha, read results per Cesar Murray result note 10/02/24. Pt declines podiatry referral but would like results faxed to pain management doctor, Dr. Garnica at [facility]. Fax sent [phone]. * Telephone Encounter - Akanksha Morales - 10/03/2024 1:56 PM EDT Lino is calling Keyla Schultz MD today to request Results (feet) Patient has been identified by name and birthdate. Duration of symptoms: 1 weeks Person calling: spouse: Radha Call patient at: [phone] (home) Was an appointment scheduled: No Closing statement: Akanksha Gregory Bc Pss documented in this encounterCh[facility] Telephone encounter Note * Telephone Encounter - Bc Thomson Akanksha M - 10/03/2024 1:56 PM EDT Lino is calling Keyla Schultz MD today to request Results (feet) Patient has been identified by name and birthdate. Duration of symptoms: 1 weeks Person calling: spouse: Radha Call patient at: [phone] (home) Was an appointment scheduled: No Closing statement: Akanksha Gregory Bc Pss [facility] Work Phone: [phone] Telephone encounter Note* Telephone Encounter - Delia Chaves LPN - 10/02/2024 1:28 PM EDT Patient aware and would like to know what foot x ray showed. [facility]03-13-2025 Telephone encounter Note* Telephone Encounter - Cesar Murray APRN.CNP - 09/27/2024 8:59 AM EDT Let patient know that his labs looked good overall. He is due to see Dr. Schultz in the office, hasn't seen him in over 2 years, please schedule as 40 minute MWV Cesar Murray APRN.CNP [facility]03-12-2025 History of Present illness Narrative* Keke Morris CT - 09/26/2024 11:30 AM EDT Radiology Service Progress Note PATIENT NAME: Lino Wheeler DATE OF SERVICE: September 26, 2024 TIME: 12:17 PM PATIENT IDENTITY VERIFICATION COMPLETED USING TWO (2) IDENTIFIERS: Name and Date of confirmedby patient verbally. FALL SCREENING: Has the patient had 2 falls in the last year or 1 fall with injury or currently using an Ambulatory Assistive Device (Walker, Cane, Wheelchair, Crutches, etc.)? Yes, Patient High Riskfor Falls What interventions were put in place to prevent falls during this visit? Instructed Patient to Callfor Help if Needed, Offered Assistance with Transfers/Clothing, Instructed Patient to Remain Seated(Not on Exam Table) Until Exam, and Increased Observations by Caregivers PATIENT GENDER DATA: Assigned male at PATIENT RELEVANT IMPLANT DATA REVIEWED: Not Applicable PATIENT PRESENTS WITH AN IMPLANTABLE OR ATTACHED BROADCAST MAINTENANCE ENGINEER: No RADIOLOGY DEPARTMENT: General X-ray: Exam(s) Completed: Lower Extremity X- Ray(s): Feet, Bilateral PERIPHERAL IV DATA: Not applicable SIGNED BY: KOURTNEY Saldivar September 26, 2024 12:17 PM documented in this encounterChillicothe [facility]03-12-2025 NoteHNO ID: [id number] Author: KEKE MORRIS CT Service: ? Author Type: Technologist Type: Progress Notes Filed: 09/26/2024 12:18 Note Text: Radiology Service Progress Note PATIENT NAME: Lino Wheeler DATE OF SERVICE: September 26, 2024 TIME: 12:17 PM PATIENT IDENTITY VERIFICATION COMPLETED USING TWO (2) IDENTIFIERS: Name and Date of confirmed by patient verbally. FALL SCREENING: Has the patient had 2 falls in the last year or 1 fall with injury or currently using an Ambulatory Assistive Device (Walker, Cane, Wheelchair, Crutches, etc.)? Yes, Patient High Risk for Falls What interventions were put in place to prevent falls during this visit? Instructed Patient to Call for Help if Needed, Offered Assistance with Transfers/Clothing, Instructed Patient to Remain Seated (Not on Exam Table) Until Exam, and Increased Observations by Caregivers PATIENT GENDER DATA: Assigned male at PATIENT RELEVANT IMPLANT DATA REVIEWED: Not Applicable PATIENT PRESENTS WITH AN IMPLANTABLE OR ATTACHED BROADCAST MAINTENANCE ENGINEER: No RADIOLOGY DEPARTMENT: General X-ray: Exam(s) Completed: Lower Extremity X-Ray(s): Feet, Bilateral PERIPHERAL IV DATA: Not applicable SIGNED BY: KOURTNEY Saldivar September 26, 2024 12:17 [facility]03-11-2025 Telephone encounter Note* Telephone Encounter - Kate Melchor RN - 09/25/2024 2:30 PM EDT Called to notify Radha of the orders. Suggested if he is in a lot of pain or swelling they just visit the ER when they are in [place] because the OP imaging can take a few days to come back. She said he probably will not be able to sit in the waiting room long if they are busy, will probably just get the xrays and labs, then go home. [facility]03-11-2025 Miscellaneous Notes* Telephone Encounter - Kate Melchor RN - 09/25/2024 2:30 PM EDT Called to notify Radha of the orders. Suggested if he is in a lot of pain or swelling they just visit the ER when they are in [place] because the OP imaging can take a few days to come back. She said he probably will not be able to sit in the waiting room long if they are busy, will probably just get the xrays and labs, then go home. * Telephone Encounter - Cesar Murray APRN.SISSY - 09/25/2024 1:[address] Schultz's note * Telephone Encounter - Keyla Schultz MD - 09/25/2024 1:34 PM EDT X rays ordered. Keyla Schultz MD * Telephone Encounter - Kate Melchor RN - 09/25/2024 12:41 PM EDT Called to triage. Fell 08/25/24 in his bedroom coming from the bathroom with his walker, either leg gave out or lost balance and he went down. The fall was witnessed by his . tried to help him up and hurt her own back doing that, she will be getting care from her own PCP, starting PT soon for herself because of that. Eventually the neighbor came to help him up and hedid not receive treatment at the time of the fall. Pedal edema R>L He can walk but cannot get his shoe on. He has labs at [place] and Can he have xrays for his feet? His feet are red and painful. No open wounds. Triager asked about gout history. states he has not had a gout flare in years from the medicine he takes, states it's not gout. Disposition: see PCP within 24 hours. Patient is overdue for a follow up from February as well. She declines, states she won't be able to get him to the office but they are making one trip out and it'sto [facility] to get labs done. Asking for xrays to have done at [place] for both feet. Reason for Disposition [1] MODERATE pain (e.g., interferes with normal activities, limping) AND [2] high-risk adult (e.g.,age > 60 years, osteoporosis, chronic steroid use) Large swelling or bruise (> 2 inches or 5 cm) [1] After 2 weeks AND [2] still painful or swollen Answer Assessment - Initial Assessment Questions 1. MECHANISM: Fall 2. ONSET: 08/25/24 3. LOCATION: Both feet 4. APPEARANCE of INJURY: Feet are reddened, right worse that left, and swollen, right worse than left. 5. WEIGHT-BEARING: Yes 6. SIZE: Not past the feet/ankles 7. PAIN: Yes 8. TETANUS: No breaks in skin 9. OTHER SYMPTOMS: No 10. : Not applicable Protocols used: Foot [id number] * Telephone Encounter - Evans Pressley RN - 09/25/2024 12:04 PM EDT , Radha, left VM on triage line asking for xrays for feet to be sent to [place]. States he fell in August and now feet are red and swollen. Needs triaged. [phone] Evans Pressley RN documented in this encounterCh[facility]03-[facility]-2025 Telephone encounter Note * Telephone Encounter - Cesar Murray APRN.SISSY - 09/25/2024 1:[address] Schultz's note [facility]03-11-2025 Telephone encounter Note* Telephone Encounter - Keyla Schultz MD - 09/25/2024 1:34 PM EDT X rays ordered. Keyla Schultz MD [facility]03-11-2025 Telephone encounter Note* Telephone Encounter - Kate Melchor RN - 09/25/2024 12:41 PM EDT Called to triage. Fell 08/25/24 in his bedroom coming from the bathroom with his walker, either leg gave out or lost balance and he went down. The fall was witnessed by his . tried to help him up and hurt her own back doing that, she will be getting care from her own PCP, starting PT soon for herself because of that. Eventually the neighbor came to help him up and hedid not receive treatment at the time of the fall. Pedal edema R>L He can walk but cannot get his shoe on. He has labs at [place] and Can he have xrays for his feet? His feet are red and painful. No open wounds. Triager asked about gout history. states he has not had a gout flare in years from the medicine he takes, states it's not gout. Disposition: see PCP within 24 hours. Patient is overdue for a follow up from February as well. She declines, states she won't be able to get him to the office but they are making one trip out and it'sto [facility] to get labs done. Asking for xrays to have done at [place] for both feet. Reason for Disposition [1] MODERATE pain (e.g., interferes with normal activities, limping) AND [2] high-risk adult (e.g.,age > 60 years, osteoporosis, chronic steroid use) Large swelling or bruise (> 2 inches or 5 cm) [1] After 2 weeks AND [2] still painful or swollen Answer Assessment - Initial Assessment Questions 1. MECHANISM: Fall 2. ONSET: 08/25/24 3. LOCATION: Both feet 4. APPEARANCE of INJURY: Feet are reddened, right worse that left, and swollen, right worse than left. 5. WEIGHT-BEARING: Yes 6. SIZE: Not past the feet/ankles 7. PAIN: Yes 8. TETANUS: No breaks in skin 9. OTHER SYMPTOMS: No 10. : Not applicable Protocols used: Foot [id number] [facility]03-11-2025 Telephone encounter Note* Telephone Encounter - Evans Pressley RN - 09/25/2024 12:04 PM EDT , Radha, left on triage line asking for xrays for feet to be sent to [place]. States he fell in August and now feet are red and swollen. Needs triaged. [phone] Evans Pressley RN [facility]02-27-2025 Telephone encounter Note* Telephone Encounter - Johanna Selby - 09/13/2024 10:32 AM EST Prescription Refill Information The patient has been identified by name and date of : Yes Caregiver verified no other encounters exist for this prescription request: Yes Caregiver confirmed with patient/requestor that no other refills are due, in the near future, with this provider at this time: Yes The last office visit in the department: 03-15-24 Does the patient have a future office visit with this provider/department: Yes Requested Prescriptions Pending Prescriptions Disp Refills blood sugar diagnostic test strip 300 Strip 5 Sig: Use with blood glucose test 3 times daily. Asking to have 3 times daily as sometimes it does not read correctly so they have to use another strip to test and then they run out of strips. Johanna Thomson September 13, 2024 10:34 AM [facility]02-27-2025 Miscellaneous Notes* Telephone Encounter - Johanna Selby - 09/13/2024 10:32 AM EST Prescription Refill Information The patient has been identified by name and date of : Yes Caregiver verified no other encounters exist for this prescription request: Yes Caregiver confirmed with patient/requestor that no other refills are due, in the near future, with this provider at this time: Yes The last office visit in the department: 03-15-24 Does the patient have a future office visit with this provider/department: Yes Requested Prescriptions Pending Prescriptions Disp Refills blood sugar diagnostic test strip 300 Strip 5 Sig: Use with blood glucose test 3 times daily. Asking to have 3 times daily as sometimes it does not read correctly so they have to use another strip to test and then they run out of strips. Johanna Thomson September 13, 2024 10:34 AM documented in this encounterChillic[facility]02-[facility]-2025 Telephone encounter Note * Telephone Encounter - Stephen Berry LPN - 09/13/2024 9:53 AM EST Prescription Refill Information The patient has been identified by name and date of : Yes Caregiver verified no other encounters exist for this prescription request: Yes Caregiver confirmed with patient/requestor that no other refills are due, in the near future, with this provider at this time: Yes The last office visit in the department: 03/15/24 Does the patient have a future office visit with this provider/department: Yes Requested Prescriptions Pending Prescriptions Disp Refills allopurinol (ZYLOPRIM) 300 mg tablet [Pharmacy Med Name: Allopurinol 300 MG Oral Tablet] 100 tablet2 Sig: TAKE 1 TABLET BY MOUTH ONCE DAILY Stephen Berry LPN September 13, 2024 9:53 AM [facility]02-27-2025 Miscellaneous Notes* Telephone Encounter - Stephen Berry LPN - 09/13/2024 9:53 AM EST Prescription Refill Information The patient has been identified by name and date of : Yes Caregiver verified no other encounters exist for this prescription request: Yes Caregiver confirmed with patient/requestor that no other refills are due, in the near future, with this provider at this time: Yes The last office visit in the department: 03/15/24 Does the patient have a future office visit with this provider/department: Yes Requested Prescriptions Pending Prescriptions Disp Refills allopurinol (ZYLOPRIM) 300 mg tablet [Pharmacy Med Name: Allopurinol 300 MG Oral Tablet] 100 tablet2 Sig: TAKE 1 TABLET BY MOUTH ONCE DAILY Stephen Berry LPN September 13, 2024 9:53 AM [facility] Tele[facility] encounter Note * Telephone Encounter - Stephen Berry LPN - 08/28/2024 5:04 PM EST Called and notified Radha the area where pt is supposed to sign was left blank. Radha states she would like the form faxed anyway. Fax sent. [facility]02-[facility] Miscellaneous Notes* Telephone Encounter - Stephen Berry LPN - 08/28/2024 5:04 PM EST Called and notified Radha the area where pt is supposed to sign was left blank. Radha states she would like the form faxed anyway. Fax sent. * Telephone Encounter - Stephen Berry LPN - 08/28/2024 1:35 PM EST Received chronic condition release of information request from [facility]. Placed in provider's inbox for review. Route to [place] fax * Telephone Encounter - Cinthya Najera - 08/28/2024 12:13 PM EST Pts dropped off forms that need completed by PCP. Placed in mailbox. documented in this encounterCh[facility] Telephone encounter Note * Telephone Encounter - Stephen Berry LPN - 08/28/2024 1:35 PM EST Received chronic condition release of information request from [facility]. Placed in provider's inbox for review. Route to [place] fax [facility]02-11[facility] Telephone encounter Note* Telephone Encounter - Cinthya Najera - 08/28/2024 12:13 PM EST Pts dropped off forms that need completed by PCP. Placed in mailbox. [facility]12-10[facility] Telephone encounter Note* Telephone Encounter - Keke Mathis MA - 06/26/2024 10:37 AM EST Pharmacy verified in [place]. Patient has been identified by name and date of : Yes Patient aware RX will be sent to pharmacy. No need to notify patient. Patient phones for refill(s): Requested Prescriptions Pending Prescriptions Disp Refills tamsulosin (FLOMAX) 0.4 mg [Pharmacy Med Name: Tamsulosin HCl 0.4 MG Oral Capsule] 100 capsule 2 Sig: TAKE 1 CAPSULE BY MOUTH ONCE DAILY Date of last office visit : Visit date not found Date of next office visit : Visit date not found Last 2 Encounter Wt Readings: Date: Wt: 04/02/2023 81.6 kg (180 lb) 10/16/2022 81.7 kg (180 lb 1.9 oz) Not applicable Please advise. Keke Mathis MA [facility]12-10-2024 Miscellaneous Notes* Telephone Encounter - Keke Mathis MA - 06/26/2024 10:37 AM EST Pharmacy verified in [place]. Patient has been identified by name and date of : Yes Patient aware RX will be sent to pharmacy. No need to notify patient. Patient phones for refill(s): Requested Prescriptions Pending Prescriptions Disp Refills tamsulosin (FLOMAX) 0.4 mg [Pharmacy Med Name: Tamsulosin HCl 0.4 MG Oral Capsule] 100 capsule 2 Sig: TAKE 1 CAPSULE BY MOUTH ONCE DAILY Date of last office visit : Visit date not found Date of next office visit : Visit date not found Last 2 Encounter Wt Readings: Date: Wt: 04/02/2023 81.6 kg (180 lb) 10/16/2022 81.7 kg (180 lb 1.9 oz) Not applicable Please advise. Keke Mathis MA documented in this encounterCh[facility]11-19-2024 Telephone encounter Note * Telephone Encounter - Delia Chaves LPN - 06/05/2024 10:19 AM EST Prescription Refill Information The patient has been identified by name and date of : Yes Caregiver verified no other encounters exist for this prescription request: Yes Caregiver confirmed with patient/requestor that no other refills are due, in the near future, with this provider at this time: Yes The last office visit in the department: 03/15/2024 Does the patient have a future office visit with this provider/department: Yes 09/17/2024 Requested Prescriptions Pending Prescriptions Disp Refills escitalopram oxalate (LEXAPRO) 5 mg tablet [Pharmacy Med Name: escitalopram 5 mg tablet] 30 tablet 2 Sig: Take 1 tablet by mouth once daily. Delia Chaves LPN June 05, 2024 10:20 AM [facility]11-19-2024 Miscellaneous Notes* Telephone Encounter - Delia Chaves LPN - 06/05/2024 10:19 AM EST Prescription Refill Information The patient has been identified by name and date of : Yes Caregiver verified no other encounters exist for this prescription request: Yes Caregiver confirmed with patient/requestor that no other refills are due, in the near future, with this provider at this time: Yes The last office visit in the department: 03/15/2024 Does the patient have a future office visit with this provider/department: Yes 09/17/2024 Requested Prescriptions Pending Prescriptions Disp Refills escitalopram oxalate (LEXAPRO) 5 mg tablet [Pharmacy Med Name: escitalopram 5 mg tablet] 30 tablet 2 Sig: Take 1 tablet by mouth once daily. Delia Chaves LPN June 05, 2024 10:20 AM documented in this encounterCh[facility]11-01-2024 Telephone encounter Note * Telephone Encounter - Johanna Selby - 05/18/2024 9:22 AM EDT Prescription Refill Information The patient has been identified by name and date of : Yes Caregiver verified no other encounters exist for this prescription request: Yes Caregiver confirmed with patient/requestor that no other refills are due, in the near future, with this provider at this time: Yes The last office visit in the department: 03-15-24 Does the patient have a future office visit with this provider/department: Yes 09-17-24 Requested Prescriptions Pending Prescriptions Disp Refills SITagliptin phosphate (JANUVIA) 100 mg tablet 90 tablet 0 Sig: Take 1 tablet by mouth once daily. Patient is OUT of this medication if this can be done today would be greatly appreciated. Thank you. Johanna Thomson May 18, 2024 9:23 AM [facility]11-01-2024 Miscellaneous Notes* Telephone Encounter - Johanna Selby - 05/18/2024 9:22 AM EDT Prescription Refill Information The patient has been identified by name and date of : Yes Caregiver verified no other encounters exist for this prescription request: Yes Caregiver confirmed with patient/requestor that no other refills are due, in the near future, with this provider at this time: Yes The last office visit in the department: 03-15-24 Does the patient have a future office visit with this provider/department: Yes 09-17-24 Requested Prescriptions Pending Prescriptions Disp Refills SITagliptin phosphate (JANUVIA) 100 mg tablet 90 tablet 0 Sig: Take 1 tablet by mouth once daily. Patient is OUT of this medication if this can be done today would be greatly appreciated. Thank you. Johanna Thomson May 18, 2024 9:23 AM documented in this encounterCh[facility]10-09-2024 Telephone encounter Note * Telephone Encounter - Delia Chaves LPN - 04/25/2024 8:34 AM EDT Prescription Refill Information The patient has been identified by name and date of : Yes Caregiver verified no other encounters exist for this prescription request: Yes Caregiver confirmed with patient/requestor that no other refills are due, in the near future, with this provider at this time: Yes The last office visit in the department: 03/15/2024 Does the patient have a future office visit with this provider/department: Yes 09/17/2024 Requested Prescriptions Pending Prescriptions Disp Refills rosuvastatin (CRESTOR) 10 mg tablet [Pharmacy Med Name: Rosuvastatin Calcium 10 MG Oral Tablet] 100tablet 2 Sig: TAKE 1 TABLET BY MOUTH ONCE DAILY Delia Chaves LPN April 25, 2024 8:34 AM [facility]10-[facility] Miscellaneous Notes* Telephone Encounter - Delia Chaves LPN - 04/25/2024 8:34 AM EDT Prescription Refill Information The patient has been identified by name and date of : Yes Caregiver verified no other encounters exist for this prescription request: Yes Caregiver confirmed with patient/requestor that no other refills are due, in the near future, with this provider at this time: Yes The last office visit in the department: 03/15/2024 Does the patient have a future office visit with this provider/department: Yes 09/17/2024 Requested Prescriptions Pending Prescriptions Disp Refills rosuvastatin (CRESTOR) 10 mg tablet [Pharmacy Med Name: Rosuvastatin Calcium 10 MG Oral Tablet] 100tablet 2 Sig: TAKE 1 TABLET BY MOUTH ONCE DAILY Delia Chaves LPN April 25, 2024 8:34 AM documented in this encounterChillic[facility]09-30-2024 NoteHNO ID: [id number] Author: SANDY DRUMMOND MA Service: ? Author Type: Precipitate Washer Type: Progress Notes Filed: 04/16/2024 12:11 Note Text: POPULATION HEALTH NAVIGATION OUTREACH Action/FYI CMP is already ordered, so do not need BMP as well Cesar Murray APRN.WINDOWS TECHNICAL SPECIALIST Reason for Outreach Navigation Signature: Sandy Drummond MA April 16, 2024 12:10 [facility]09-27-2024 Note* Addendum Note - Sandy Drummond MA - 04/13/2024 8:55 AM EDTAddended by: SANDY DRUMMOND on: 04/13/2024 08:55 AM Modules accepted: Orders [facility]09-27-2024 Miscellaneous Notes* Addendum Note - Sandy Drummond MA - 04/13/2024 8:55 AM EDTAddended by: SANDY DRUMMOND on: 04/13/2024 08:55 AM Modules accepted: Orders documented in this encounterChillic[facility]09-27-2024 NoteHNO ID: [id number] Author: SANDY DRUMMOND MA Service: ? Author Type: Precipitate Washer Type: Progress Notes Filed: 04/13/2024 08:55 Note Text: POPULATION HEALTH NAVIGATION OUTREACH Action/FYI Thank you for the orders... I apologize, I was supposed to pend a BMP to go along with the urine albumin, would you mind signing off on that one as well? I have pended it. Called patient spoke with and let them know labs ordered, due in September. I told her we could schedule with lab or they can stop in, she did not schedule. Reason for Outreach Returned Call/MyChart Patient Contacted: Spoke to patient/parent/or legal guardian Patient identified by name and date of : Yes Returned call/MyChart actions taken: Patient declined: Patient will manage this appointment Navigation Signature: Sandy Drummond MA April 13, 2024 8:49 [facility]09-27-2024 History of Present illness Narrative* Sandy Drummond MA - 04/13/2024 8:49 AM EDT POPULATION HEALTH NAVIGATION OUTREACH Action/FYI Thank you for the orders... I apologize, I was supposed to pend a BMP to go along with the urine albumin, would you mind signing off on that one as well? I have pended it. Called patient spoke with and let them know labs ordered, due in September. I told her we could schedule with lab or they can stop in, she did not schedule. Reason for Outreach Returned Call/MyChart Patient Contacted: Spoke to patient/parent/or legal guardian Patient identified by name and date of : Yes Returned call/MyChart actions taken: Patient declined: Patient will manage this appointment Navigation Signature: Sandy Drummond MA April 13, 2024 8:49 AM * Cesar Murray APRN.[facility] - 04/11/2024 9:29 AM EDT Future lab orders placed for September 2024, nothing needed until that time. Cesar Murray APRN.CNP * Sandy Drummond MA - 04/11/2024 8:08 AM EDT POPULATION HEALTH NAVIGATION OUTREACH Action/FYI PCP- Please review and advise on orders pending. Please add or remove any additional lab(s) the patient might need. Patient will be contacted once orders are filed. Thank you, Sandy Drummond MA/Population Health Navigator Return in about 6 months (around 09/14/2024) for chronic care f/u with Dr. Schultz. Spoke to patient and scheduled Medicare Wellness Exam/FOLLOW UP. Declined TORRIE. Will get flu shot at pharmacy. Reason for Outreach Care Gap/HCC or Scheduling Wellness Visits Care Gaps due: Medicare Annual Wellness Visit Follow-up Appointment Diabetic Eye Exam KED Flu Vaccine Patient Contacted: Spoke to patient/parent/or legal guardian Patient identified by name and : Yes Care Gap/HCC/Scheduling Wellness actions taken: Patient scheduled/pended orders: Medicare Annual Wellness Visit KED 09/17/2024 in [facility] with KEYLA SCHULTZ/6 MO FU , HCC GAP CLOSURE Navigation Signature: Sandy Drummond MA April 11, 2024 8:10 AM documented in this encounterChillic[facility]09-25-2024 NoteHNO ID: [id number] Author: CESAR MURRAY APRN.CNP Service: ? Author Type: Nurse Practitioner Type: Progress Notes Filed: 04/13/2024 08:51 Note Text: Future lab orders placed for September 2024, nothing needed until that time. Cesar Murray APRN.[facility]PC[facility]09-25-2024 NoteHNO ID: [id number] Author: SANDY DRUMMOND MA Service: ? Author Type: Precipitate Washer Type: Progress Notes Filed: 04/13/2024 08:51 Note Text: POPULATION HEALTH NAVIGATION OUTREACH Action/FYI PCP- Please review and advise on orders pending. Please add or remove any additional lab(s) the patient might need. Patient will be contacted once orders are filed. Thank you, Sandy Drummond MA/Population Health Navigator Return in about 6 months (around 09/14/2024) for chronic care f/u with Dr. Schultz. Spoke to patient and scheduled Medicare Wellness Exam/FOLLOW UP. Declined TORRIE. Will get flu shot at pharmacy. Reason for Outreach Care Gap/HCC or Scheduling Wellness Visits Care Gaps due: Medicare Annual Wellness Visit Follow-up Appointment Diabetic Eye Exam KED Flu Vaccine Patient Contacted: Spoke to patient/parent/or legal guardian Patient identified by name and : Yes Care Gap/HCC/Scheduling Wellness actions taken: Patient scheduled/pended orders: Medicare Annual Wellness Visit KED 09/17/2024 in [facility] with KEYLA SCHULTZ/6 MO FU MODIFIER , HCC GAP CLOSURE Navigation Signature: Sandy Drummond MA April 11, 2024 8:10 [facility]09-25-2024 NotePatient Outreach (NETNAV) LINO WHEELER ([id number]) 1935 M Date Time Provider Department 04/11/24 SANDY DRUMMOND During your visit today, we recorded the following information about you: Sandy Drummond MA 04/13/2024 8:51 AM Signed POPULATION HEALTH NAVIGATION OUTREACH Action/FYI PCP- Please review and advise on orders pending. Please add or remove any additional lab(s) the patient might need. Patient will be contacted once orders are filed. Thank you, Sandy Drummond MA/Population Health Navigator Return in about 6 months (around 09/14/2024) for chronic care f/u with Dr. Scuhltz. Spoke to patient and scheduled Medicare Wellness Exam/FOLLOW UP. Declined TORRIE. Will get flu shot at pharmacy. Reason for Outreach Care Gap/HCC or Scheduling Wellness Visits Care Gaps due: Medicare Annual Wellness Visit Follow-up Appointment Diabetic Eye Exam KED Flu Vaccine Patient Contacted: Spoke to patient/parent/or legal guardian Patient identified by name and : Yes Care Gap/HCC/Scheduling Wellness actions taken: Patient scheduled/pended orders: Medicare Annual Wellness Visit KED 09/17/2024 in [facility] with KEYLA SCHULTZV/6 MO FU MODIFIER 25, HCC GAP CLOSURE Navigation Signature: Sandy Drummond MA April 11, 2024 8:10 AM Cesar Murray APRN.SISSY 04/13/2024 8:51 AM Signed Future lab orders placed for September 2024, nothing needed until that time. Cesar Murray APRN.Sandy Latif MA 04/13/2024 8:55 AM Addendum POPULATION HEALTH NAVIGATION OUTREACH Action/FYI Thank you for the orders... I apologize, I was supposed to pend a BMP to go along with the urine albumin, would you mind signing off on that one as well? I have pended it. Called patient spoke with and let them know labs ordered, due in September. I told her we could schedule with lab or they can stop in, she did not schedule. Reason for Outreach Returned Call/MyChart Patient Contacted: Spoke to patient/parent/or legal guardian Patient identified by name and date of : Yes Returned call/MyChart actions taken: Patient declined: Patient will manage this appointment Navigation Signature: Sandy Drummond MA April 13, 2024 8:49 AM Sandy Drummond MA 04/13/2024 8:55 AM Signed Addended by: SANDY DRUMMOND on: 04/13/2024 08:55 AM Modules accepted: Orders Sandy Drummond MA 04/16/2024 12:11 PM Signed POPULATION HEALTH NAVIGATION OUTREACH Action/FYI CMP is already ordered, so do not need BMP as well Cesar Murray APRN.SISSY Reason for Outreach Navigation Signature: Sandy Drummond MA April 16, 2024 12:10 PM Allergies As of Date: 04/11/2024 Noted Allergy Reaction DILAUDID (HYDROMORPHONE (BULK)) 03/08/2017 1 - Mental Status Change PENICILLIN 01/14/2017 16 - Unknown TORADOL (KETOROLAC) 01/14/2017 9 - Itching Date Reviewed: 03/15/2024 Reviewed by: Delia Chaves LPN - Fully Assessed Reason for Visit: Population Health Navigation Outreach [3910] Cmt: [facility] WORKBENCPaulette PINEDA Visit Diagnosis:Type 2 diabetes mellitus without complication, with long-term current use of insulin (HCC) [E11.9, Z79.4] Order(s):ALBUMIN/CREATININE RATIO, URINE [SQUACR] Order #: [id number] FUTURE Prescriptions as of 04/16/2024 - Lancets Use with blood glucose test 3 times daily. - insulin glargine (LANTUS SOLOSTAR U-100 INSULIN) 100 unit/mL (3 mL) INJECT 21 UNITS SUBCUTANEOUSLY EVERY MORNING - amitriptyline (ELAVIL) 25 mg tablet Take 25 mg by mouth daily at bedtime. - escitalopram oxalate (LEXAPRO) 5 mg tablet Take 1 tablet by mouth once daily. - JANUVIA 100 mg tablet take 1 tablet by mouth once daily - levETIRAcetam (KEPPRA) 500 mg tablet TAKE 1 TABLET BY MOUTH TWICE DAILY - allopurinol (ZYLOPRIM) 300 mg tablet Take 1 tablet by mouth once daily. - tamsulosin (FLOMAX) 0.4 mg Take 1 capsule by mouth once daily. - gabapentin (NEURONTIN) 100 mg capsule Take 1 capsule by mouth two times a day for 30 days. - blood sugar diagnostic test strip Use with blood glucose test 2 times daily. - azelastine 0.1% nasal spray Use 1 [place] in each nostril two times a day. - atenolol (TENORMIN) 50 mg tablet TAKE ONE-HALF TABLET BY MOUTH ONCE DAILY - rosuvastatin (CRESTOR) 10 mg tablet Take 1 tablet by mouth once daily. - Insulin [place], Disposable, (PEN NEEDLE) 32 gauge x 5/32 Use to inject insulin twice daily. - oxyCODONE myristate (XTAMPZA ER) 9 mg CSpT Take 9 mg by mouth twice daily. - Insulin [place], Disposable, (PEN NEEDLE) 32 gauge x 5/32 Use to inject insulin up to 8 times per day. - Blood-Glucose Meter 1 Device three times daily. Test Three times a day. - alcohol swabs Use with blood glucose test 3 times daily. Meds Comments as of 07/23/2019: Poor historian, did not bring list of medication. Unable to verify today (more content not included)...[facility]09-09-2024 Telephone encounter Note* Telephone Encounter - aKte Melchor RN - 03/26/2024 11:11 AM EDT Last office visit 03/15/24. Pended with [employer] in comments. Please review. Requested Prescriptions Pending Prescriptions Disp Refills Lancets 300 Each 5 Sig: Use with blood glucose test 3 times daily. [facility]09-09-2024 Miscellaneous Notes* Telephone Encounter - Kate Melchor RN - 03/26/2024 11:11 AM EDT Last office visit 03/15/24. Pended with [employer] in comments. Please review. Requested Prescriptions Pending Prescriptions Disp Refills Lancets 300 Each 5 Sig: Use with blood glucose test 3 times daily. * Telephone Encounter - Veronica Rothman - 03/26/2024 9:38 AM EDT Patient's called to refill his lancets rx. However she said it has to be [employer]qualance lancets specifically. Wants it sent to [facility] in [place]. documented in this encounterCh[facility]09-09-2024 Telephone encounter Note * Telephone Encounter - Veronica Rothman - 03/26/2024 9:38 AM EDT Patient's called to refill his lancets rx. However she said it has to be Aqualance lancets specifically. Wants it sent to [facility] in [place]. [facility]09-05-2024 Telephone encounter Note* Telephone Encounter - Keyla Schultz MD - 03/22/2024 9:48 AM EDT The following approved medication requests have been transmitted electronically. Requested Prescriptions Signed Prescriptions Disp Refills insulin glargine (LANTUS SOLOSTAR U-100 INSULIN) 100 unit/mL (3 mL) 30 mL 5 Sig: INJECT 21 UNITS SUBCUTANEOUSLY EVERY MORNING Authorizing Provider: KEYLA SCHULTZ MD [facility]09-05-2024 Miscellaneous Notes* Telephone Encounter - Keyla Schultz MD - 03/22/2024 9:48 AM EDT The following approved medication requests have been transmitted electronically. Requested Prescriptions Signed Prescriptions Disp Refills insulin glargine (LANTUS SOLOSTAR U-100 INSULIN) 100 unit/mL (3 mL) 30 mL 5 Sig: INJECT 21 UNITS SUBCUTANEOUSLY EVERY MORNING Authorizing Provider: KEYLA SCHULTZ MD * Telephone Encounter - Keke Mathis MA - 03/22/2024 9:23 AM EDT Pharmacy verified in [place]. Patient has been identified by name and date of : Yes Patient aware RX will be sent to pharmacy. No need to notify patient. Patient phones for refill(s): Requested Prescriptions Pending Prescriptions Disp Refills LANTUS SOLOSTAR U-100 INSULIN 100 unit/mL (3 mL) [Pharmacy Med Name: Lantus SoloStar 100 UNIT/ML Subcutaneous Solution Pen-injector] 30 mL 2 Sig: INJECT 21 UNITS SUBCUTANEOUSLY EVERY MORNING Date of last office visit : 03/15/2024 Date of next office visit : Visit date not found Last 2 Encounter Wt Readings: Date: Wt: 04/02/2023 81.6 kg (180 lb) 10/16/2022 81.7 kg (180 lb 1.9 oz) Diabetes: Hemoglobin A1C (POCT) (%) Date Value 03/15/2024 6.3 Please advise. Keke Mathis MA documented in this encounterChillic[facility]09-05-2024 Telephone encounter Note * Telephone Encounter - Keke Mathis MA - 03/22/2024 9:23 AM EDT Pharmacy verified in [place]. Patient has been identified by name and date of : Yes Patient aware RX will be sent to pharmacy. No need to notify patient. Patient phones for refill(s): Requested Prescriptions Pending Prescriptions Disp Refills LANTUS SOLOSTAR U-100 INSULIN 100 unit/mL (3 mL) [Pharmacy Med Name: Lantus SoloStar 100 UNIT/ML Subcutaneous Solution Pen-injector] 30 mL 2 Sig: INJECT 21 UNITS SUBCUTANEOUSLY EVERY MORNING Date of last office visit : 03/15/2024 Date of next office visit : Visit date not found Last 2 Encounter Wt Readings: Date: Wt: 04/02/2023 81.6 kg (180 lb) 10/16/2022 81.7 kg (180 lb 1.9 oz) Diabetes: Hemoglobin A1C (POCT) (%) Date Value 03/15/2024 6.3 Please advise. Keke Mathis MA [facility]08-29-2024 NoteHNO ID: [id number] Author: CESAR MANJARREZ APRN.WINDOWS TECHNICAL SPECIALIST Service: ? Author Type: Nurse Practitioner Type: Progress Notes Filed: 03/15/2024 13:15 Note Text: This note was created using [employer]. Subjective Lino Wheeler is a 88 year old male. Patient here with spouse. Patient is home bound, the only way he can get out of the house is if his son comes over and carries him into the car. Two nurses had to assist spouse getting patient out of the car in the parking lot today and into the wheelchair to get him into this office. Patient is not eligible for visiting physician where they live and they're not willing to move at this time. DMII: taking Lantus 18 units in the morning, Januvia 100 mg in the evening. Blood sugars in the last month running 83-213. A1C today 6.3%. Sees pain management through [facility]. Managed on oxycodone, gabapentin, amitriptyline to help with sleep. Pain management doctor was going to re-refer to physical therapy to see if they could get more sessions in the home to help with his generalized weakness. HLD: takes Crestor daily, due for fasting labs in September. LDL in September 2022 was 37. HTN: takes atenolol daily. History of prostate cancer 20+ years ago, monitors PSA yearly. Takes flomax daily. Epilepsy: hasn't had a seizure in at least 30 years. Stable on keppra. Notes depressed mood, denies anxiety. says he's irritable and grouchy. Patient has never been treated for mood with medications or counseling. The history is provided by the patient and the spouse. Review of Systems Constitutional: Negative for unexpected weight change. Respiratory: Negative for shortness of breath. Cardiovascular: Negative for chest pain. Gastrointestinal: Negative for abdominal pain. Musculoskeletal: Positive for back pain and gait problem. Skin: Negative for rash. Allergic/Immunologic: Positive for immunocompromised state. Neurological: Positive for weakness. Psychiatric/Behavioral: Positive for dysphoric mood and sleep disturbance. The patient is nervous/anxious. PAST MEDICAL HISTORY No date: Chronic pain No date: Diabetes ([facility]) 10/26/2021: DKA (diabetic ketoacidosis) ([facility]) No date: Epilepsy ([facility]) Comment: sz approx 20 years ago No date: History of gout No date: Hypertension No date: Mixed hyperlipidemia No date: Prostate cancer ([facility]) Comment: s/p seed therapy PAST SURGICAL HISTORY No date: BACK SURGERY HX Comment: 4 back surgeries No date: PAST SURGICAL HISTORY OF Comment: testicular surgery ALLERGIES Dilaudid [Hydromorphone (Bulk)], Penicillin, and Toradol [Ketorolac] MEDICATIONS amitriptyline (ELAVIL) 25 mg tablet Take 25 mg by mouth daily at bedtime. JANUVIA 100 mg tablet take 1 tablet by mouth once daily levETIRAcetam (KEPPRA) 500 mg tablet TAKE 1 TABLET BY MOUTH TWICE DAILY allopurinol (ZYLOPRIM) 300 mg tablet Take 1 tablet by mouth once daily. tamsulosin (FLOMAX) 0.4 mg Take 1 capsule by mouth once daily. gabapentin (NEURONTIN) 100 mg capsule Take 1 capsule by mouth two times a day for 30 days. blood sugar diagnostic test strip Use with blood glucose test 2 times daily. azelastine 0.1% nasal spray Use 1 [place] in each nostril two times a day. atenolol (TENORMIN) 50 mg tablet TAKE ONE-HALF TABLET BY MOUTH ONCE DAILY rosuvastatin (CRESTOR) 10 mg tablet Take 1 tablet by mouth once daily. Insulin [place], Disposable, (PEN NEEDLE) 32 gauge x 5/32 Use to inject insulin twice daily. oxyCODONE myristate (XTAMPZA ER) 9 mg CSpT Take 9 mg by mouth twice daily. Insulin [place], Disposable, (PEN NEEDLE) 32 gauge x 5/32 Use to inject insulin up to 8 times per day. Blood-Glucose Meter 1 Device three times daily. Test Three times a day. (Patient taking differently: 1 Device three times a day. Test Two times a day.) Lancets lancets Use with blood glucose test 3 times daily. (Patient taking differently: Use with blood glucose test 2 times daily.) alcohol swabs Use with blood glucose test 3 times daily. insulin glargine (LANTUS SOLOSTAR U-100 INSULIN) 100 unit/mL (3 mL) Inject 18 Units subcutaneously every morning. escitalopram oxalate (LEXAPRO) 5 mg tablet Take 1 tablet by mouth once daily. FAMILY HISTORY Problem Relation Age of Onset other (SBO) Mother Tuberculosis Father Social History Tobacco Use Smoking status: Never Smokeless tobacco: Never Substance Use Topics Alcohol use: Not Currently Comment: hasn't drank for 35 years, was a heavy drinker Drug use: Never Objective BP 119/69 Pulse 84 Physical Exam Vitals and nursing note reviewed. Constitutional: Appearance: He is well-developed. HENT: Right Ear: Decreased hearing noted. Left Ear: Decreased hearing noted. Cardiovascular: Rate and Rhythm: Normal rate and regular rhythm. Heart sounds: Normal heart sounds. Pulmonary: Effort: Pulmonary effort is normal. Breath sounds: Normal breath sounds. Musculoskeletal: Right lower leg: No edema. (more content not included)...[facility]08-29-2024 History of Present illness Narrative* Cesar Manjarrez, YASIR.[facility] - 03/15/2024 10:46 AM EDT This note was created using [employer]. Subjective Lino Wheeler is a 88 year old male. Patient here with spouse. Patient is home bound, the only way he can get out of the house is if hisson comes over and carries him into the car. Two nurses had to assist spouse getting patient out ofthe car in the parking lot today and into the wheelchair to get him into this office. Patient is not eligible for visiting physician where they live and they're not willing to move at this time. DMII: taking Lantus 18 units in the morning, Januvia 100 mg in the evening. Blood sugars in the last month running 83-213. A1C today 6.3%. Sees pain management through [facility]. Managed on oxycodone, gabapentin, amitriptyline to help with sleep. Pain management doctor was going to re-refer to physical therapy to see if they could get more sessions in the home to help with his generalized weakness. HLD: takes Crestor daily, due for fasting labs in September. LDL in September 2022 was 37. HTN: takes atenolol daily. History of prostate cancer 20+ years ago, monitors PSA yearly. Takes flomax daily. Epilepsy: hasn't had a seizure in at least 30 years. Stable on keppra. Notes depressed mood, denies anxiety. says he's irritable and grouchy. Patient has never been treated for mood with medications or counseling. The history is provided by the patient and the spouse. Review of Systems Constitutional: Negative for unexpected weight change. Respiratory: Negative for shortness of breath. Cardiovascular: Negative for chest pain. Gastrointestinal: Negative for abdominal pain. Musculoskeletal: Positive for back pain and gait problem. Skin: Negative for rash. Allergic/Immunologic: Positive for immunocompromised state. Neurological: Positive for weakness. Psychiatric/Behavioral: Positive for dysphoric mood and sleep disturbance. The patient is nervous/anxious. PAST MEDICAL HISTORY No date: Chronic pain No date: Diabetes (HCC) 10/26/2021: DKA (diabetic ketoacidosis) ([facility]) No date: Epilepsy (HCC) Comment: sz approx 20 years ago No date: History of gout No date: Hypertension No date: Mixed hyperlipidemia No date: Prostate cancer (HCC) Comment: s/p seed therapy PAST SURGICAL HISTORY No date: BACK SURGERY HX Comment: 4 back surgeries No date: PAST SURGICAL HISTORY OF Comment: testicular surgery ALLERGIES Dilaudid [Hydromorphone (Bulk)], Penicillin, and Toradol [Ketorolac] MEDICATIONS amitriptyline (ELAVIL) 25 mg tablet Take 25 mg by mouth daily at bedtime. JANUVIA 100 mg tablet take 1 tablet by mouth once daily levETIRAcetam (KEPPRA) 500 mg tablet TAKE 1 TABLET BY MOUTH TWICE DAILY allopurinol (ZYLOPRIM) 300 mg tablet Take 1 tablet by mouth once daily. tamsulosin (FLOMAX) 0.4 mg Take 1 capsule by mouth once daily. gabapentin (NEURONTIN) 100 mg capsule Take 1 capsule by mouth two times a day for 30 days. blood sugar diagnostic test strip Use with blood glucose test 2 times daily. azelastine 0.1% nasal spray Use 1 [place] in each nostril two times a day. atenolol (TENORMIN) 50 mg tablet TAKE ONE-HALF TABLET BY MOUTH ONCE DAILY rosuvastatin (CRESTOR) 10 mg tablet Take 1 tablet by mouth once daily. Insulin [place], Disposable, (PEN NEEDLE) 32 gauge x 5/32 Use to inject insulin twice daily. oxyCODONE myristate (XTAMPZA ER) 9 mg CSpT Take 9 mg by mouth twice daily. Insulin [place], Disposable, (PEN NEEDLE) 32 gauge x 5/32 Use to inject insulin up to 8 times per day. Blood-Glucose Meter 1 Device three times daily. Test Three times a day. (Patient taking differently: 1 Device three times a day. Test Two times a day.) Lancets lancets Use with blood glucose test 3 times daily. (Patient taking differently: Use with blood glucose test 2 times daily.) alcohol swabs Use with blood glucose test 3 times daily. insulin glargine (LANTUS SOLOSTAR U-100 INSULIN) 100 unit/mL (3 mL) Inject 18 Units subcutaneously every morning. escitalopram oxalate (LEXAPRO) 5 mg tablet Take 1 tablet by mouth once daily. FAMILY HISTORY Problem Relation Age of Onset other (SBO) Mother Tuberculosis Father Social History Tobacco Use Smoking status: Never Smokeless tobacco: Never Substance Use Topics Alcohol use: Not Currently Comment: hasn't drank for 35 years, was a heavy drinker Drug use: Never Objective BP 119/69 Pulse 84 Physical Exam Vitals and nursing note reviewed. Constitutional: Appearance: He is well-developed. HENT: Right Ear: Decreased hearing noted. Left Ear: Decreased hearing noted. Cardiovascular: Rate and Rhythm: Normal rate and regular rhythm. Heart sounds: Normal heart sounds. Pulmonary: Effort: Pulmonary effort is normal. Breath sounds: Normal breath sounds. Musculoskeletal: Right lower leg: No edema. Left lower leg: No edema. Skin: General: Skin is warm and dry. Neurological: Mental Status: He is alert and oriented to person, place, and time. Gait: Gait abnormal (in wheelchair). Psychiatric: Attention and Perception: He is inattentive. Mood and Affect: Mood is depressed. Assessment and Plan 1. Type 2 diabetes mellitus without complication, with long-term current use of insulin (HCC) Well controlled, no hypoglycemia, continue current regimen. Labs next spring. - insulin glargine (LANTUS SOLOSTAR U-100 INSULIN) 100 unit/mL (3 mL); Inject 18 Units subcutaneously every morning. Dispense: 30 mL; Refill: 5 - HB A1C B/O - HEMOGLOBIN A1C (POC) - COMPLETE BLOOD COUNT; Future - COMPREHENSIVE METABOLIC PANEL; Future - HEMOGLOBIN A1C; Future 2. Nonintractable epilepsy without status epilepticus, unspecified epilepsy type (HCC) Stable on current medication, continue, repeat labs next September. - LEVETIRACETAM; Future 3. Hypertension, unspecified type Controlled, continue current medications. 4. Chronic gout without tophus, unspecified cause, unspecified site Stable, repeat labs next September. - URIC ACID; Future 5. Chronic bilateral low back pain with bilateral sciatica Stable, follows with pain management. - amitriptyline (ELAVIL) 25 mg tablet; Take 25 mg by mouth daily at bedtime. 6. Hyperlipidemia, mixed Fasting labs next spring. - LIPID PANEL BASIC; Future 7. Generalized weakness Stable, encouraged new physical therapy referral, pain management doctor is to order. 8. History of prostate cancer Due for PSA next September. - PROSTATE-SPECIFIC ANTIGEN DIAGNOSTIC; Future 9. Adjustment disorder with depressed mood Start Lexapro, report back via phone call in 1 month. - escitalopram oxalate (LEXAPRO) 5 mg tablet; Take 1 tablet by mouth once daily. Dispense: 30 tablet; Refill: 2 [facility] Instructions* Patient Instructions* Cesar Manjarrez APRN.[facility] - 03/15/2024 10:04 AM EDT Screening schedule The following prevention plan is recommended: Pneumococcal Vaccine: 65+(1 of 2 - PCV) Never done Urine Albumin:Creatinine Ratio Never done Dilated Retinal Exam Never done Depression Screening Never done Anxiety Screening Never done Shingrix Vaccine(1 of 2) Never done RSV Vaccine(1 - 1-dose 60+ series) Never done Diabetic Foot Exam due on 11/24/2022 Advance Directive Discussion Never done Covid-19 Vaccine(2022- season) due on 08/15/2023 WHAT YOU CAN DO TO PREVENT FALLS Many falls can be prevented. By making some changes, you can lower your chances of falling. Four things YOU can do to prevent falls for you* and your caregiver 1. Begin a regular exercise program Exercise is one of the most important ways to lower your chances of falling. It makes you stronger and helps you feel better. Exercises that improve balance and coordination (like Dewey Chi) are the most helpful. Lack of exercise leads to weakness and increases your chances of falling. Ask your doctor or health care provider about the best type of exercise program for you. 2. Have your health care provider review your medicines Have your doctor or pharmacist review all the medicines you take, even [id number] medicines. As you get older, the way medicines work in your body can change. Some medicines, or combinations of medicines, can make you sleepy or dizzy andcan cause you to fall. 3. Have your vision checked Have your eyes checked by an eye doctor at least once a year. You may be wearing the wrong glasses or have a condition like glaucoma or cataracts that limits your vision. Poor vision can increase your chances of falling. 4. Make your home safer About half of all falls happen at home. To make your home safer: Remove things you can trip over (like papers, books, clothes, and shoes) from stairs and places where you walk. Remove small throw rugs or use double-sided tape to keep the rugs from slipping. Keep items you use often in cabinets you can reach easily without using a step stool. Have grab bars put in next to your toilet and in the tub or shower. Use non-slip mats in the bathtub and on shower floors. Improve the lighting in your home. As you get older, you need brighter lights to see well. Hang light-weight curtains or shades to reduce glare. Have handrails and lights put in on all staircases. Wear shoes both inside and outside the house. Avoid going barefoot or wearing slippers. For more information, contact: Centers for Disease Control and Prevention www.cdc.gov/injury * This information may not apply if you have certain medical conditions. documented in this encounterCh[facility]ic[facility]08-01-2024 NoteHNO ID: [id number] Author: ELIZABETH GUILLERMO RN Service: ? Author Type: Registered Nurse Type: Progress Notes Filed: 02/16/2024 10:49 Note Text: Summary: Medication adherence review per request of payer ACM EMY RN Reason for review or outreach: Medication Adherence review per request of payer Medication Adherence Review Details: Cholesterol FYI / ACTION REQUEST: See summary below Patient identified by name and date of Summary/Findings of review: Spoke with pt's spouse Radha regarding refill for Rosuvastatin. Validated Radha is involved in patients care Confirmed pt is taking medication as prescribed and has a few left Radha to call [facility] today to request delivery Patient Attributed To: BLU Payer: [facility] Action Taken: No action needed Contact made with patient: Yes, Talked with spouse Elizabeth [facility] History of Present illness Narrative* Elizabeth Guillermo RN - 02/16/2024 10:45 AM EDTSummary: Medication adherence review per request of payer ACM EMY RN Reason for review or outreach: Medication Adherence review per request of payer Medication Adherence Review Details: Cholesterol FYI / ACTION REQUEST: See summary below Patient identified by name and date of Summary/Findings of review: Spoke with pt's spouse Radha regarding refill for Rosuvastatin. Juliet Garcia is involved in patients care Confirmed pt is taking medication as prescribed and has a few left Radha to call [facility] today to request delivery Patient Attributed To: [facility] Payer: [facility] Action Taken: No action needed Contact made with patient: Yes, Talked with spouse Elizabeth Guillermo RN documented in this encounterChillic[facility]08-[facility] NotePatient Outreach ([facility]) LINO WHEELER ([id number]) 1935 [facility] Date Time Provider Department 02/16/24 ELIZABETH GUILLERMO [facility] During your visit today, we recorded the following information about you: Elizabeth Guillermo RN 02/16/2024 10:49 AM Signed ACM EMY RN Reason for review or outreach: Medication Adherence review per request of payer Medication Adherence Review Details: Cholesterol FYI / ACTION REQUEST: See summary below Patient identified by name and date of Summary/Findings of review: Spoke with pt's spouse Radha regarding refill for Rosuvastatin. Juliet Garcia is involved in patients care Confirmed pt is taking medication as prescribed and has a few left Radha to call [facility] today to request delivery Patient Attributed To: BLU Payer: [facility] Action Taken: No action needed Contact made with patient: Yes, Talked with spouse Elizabeth Guillermo RN Allergies As of Date: 02/16/2024 Noted Allergy Reaction DILAUDID (HYDROMORPHONE (BULK)) 03/08/2017 1 - Mental Status Change PENICILLIN 01/14/2017 16 - Unknown TORADOL (KETOROLAC) 01/14/2017 9 - Itching Date Reviewed: 04/02/2023 Reviewed by: Pham Hartley RN - Fully Assessed Reason for Visit: ACM EMY RN [[id number]] Cmt: Medication adherence review per request of payer Prescriptions as of 02/16/2024 - JANUVIA 100 mg tablet take 1 tablet by mouth once daily - levETIRAcetam (KEPPRA) 500 mg tablet TAKE 1 TABLET BY MOUTH TWICE DAILY - allopurinol (ZYLOPRIM) 300 mg tablet Take 1 tablet by mouth once daily. - tamsulosin (FLOMAX) 0.4 mg Take 1 capsule by mouth once daily. - gabapentin (NEURONTIN) 100 mg capsule Take 1 capsule by mouth two times a day for 30 days. - blood sugar diagnostic test strip Use with blood glucose test 2 times daily. - azelastine 0.1% nasal spray Use 1 [place] in each nostril two times a day. - insulin glargine (LANTUS SOLOSTAR U-100 INSULIN) 100 unit/mL (3 mL) Inject 10 Units subcutaneously every morning. - atenolol (TENORMIN) 50 mg tablet TAKE ONE-HALF TABLET BY MOUTH ONCE DAILY - rosuvastatin (CRESTOR) 10 mg tablet Take 1 tablet by mouth once daily. - flash glucose scanning reader ([employer] NICCI 2 READER) 1 Each every year. To monitor blood sugar continuously. E11.65. patient on insulin therapy - Insulin [place], Disposable, (PEN NEEDLE) 32 gauge x 5/32 Use to inject insulin twice daily. - oxyCODONE myristate (XTAMPZA ER) 9 mg CSpT Take 9 mg by mouth twice daily. - Insulin [place], Disposable, (PEN NEEDLE) 32 gauge x 5/32 Use to inject insulin up to 8 times per day. - Blood-Glucose Meter 1 Device three times daily. Test Three times a day. - Lancets lancets Use with blood glucose test 3 times daily. - alcohol swabs Use with blood glucose test 3 times daily. Meds Comments as of 07/23/2019: Poor historian, did not bring list of medication. Unable to verify today 07/22/2019 Problem List As Of Date 02/16/2024 Noted Resolved DKA (diabetic ketoacidosis) (HCC) [E11.10] 10/26/2021 08/04/2022 Epilepsy (HCC) [G40.909] 10/26/2021 Chronic back pain [M54.9, G89.29] 10/26/2021 Gout [M10.9] 10/26/2021 HTN (hypertension) [I10] 10/26/2021 Hyperlipidemia, mixed [E78.2] 10/26/2021 Prostate cancer (HCC) [C61] 10/26/2021 Chronic bilateral low back pain with bilateral *12/08/2021 DDD (degenerative disc disease), lumbar [M51.36]12/08/2021 Type 2 diabetes mellitus without complication, *12/08/2021 Encounter Status:Closed by ELIZABETH GUILLERMO on 02/16/24[facility]07-[facility] Telephone encounter Note* Telephone Encounter - Delia Chaves LPN - 02/03/2024 2:06 PM EDT Received 02/03/2024 from [employer]. Placed in provider's inbox for review. Route to [place] for faxing [facility] Miscellaneous Notes* Telephone Encounter - Delia Chaves LPN - 02/03/2024 2:06 PM EDT Received 02/03/2024 from [employer]. Placed in provider's inbox for review. Route to [place] for faxing documented in this encounterChillicothe [facility]07-11-2024 NoteHNO ID: [id number] Author: ELIZABETH GUILLERMO RN Service: ? Author Type: Registered Nurse Type: Progress Notes Filed: 01/26/2024 14:43 Note Text: ACColt EMY RN Reason for review or outreach: Medication Adherence Review Details: Cholesterol Suspect Condition Review per request of payer FYI/REQUESTED ACTION: See summary below Summary / Findings: Attempted to contact pt to discuss Rosuvastatin refill and to schedule an appt No answer and no voicemail available Will make another attempt to reach at a later date Patient identified by name and date of . Patient Attributed To: QAE Payer: [employer] Action Taken: Other Contact made with patient: No, Unable to leave message Elizabeth Guillermo [facility]NC[facility]07-[facility]-2024 History of Present illness Narrative* Elizabeth Guillermo RN - 01/26/2024 2:37 PM EDT ACColt EMY RN Reason for review or outreach: Medication Adherence Review Details: Cholesterol Suspect Condition Review per request of payer FYI/REQUESTED ACTION: See summary below Summary / Findings: Attempted to contact pt to discuss Rosuvastatin refill and to schedule an appt No answer and no voicemail available Will make another attempt to reach at a later date Patient identified by name and date of . Patient Attributed To: QAE Payer: [employer] Action Taken: Other Contact made with patient: No, Unable to leave message Elizabeth Guillermo RN documented in this encounterChillicothe [facility]07-11-2024 NotePatient Outreach ([facility]) LINO WHEELER ([id number]) 1935 M Date Time Provider Department 01/26/24 ELIZABETH GUILLERMO During your visit today, we recorded the following information about you: Elizabeth Guillermo RN 01/26/2024 2:43 PM Signed ACM EMY RN Reason for review or outreach: Medication Adherence Review Details: Cholesterol Suspect Condition Review per request of payer FYI/REQUESTED ACTION: See summary below Summary / Findings: Attempted to contact pt to discuss Rosuvastatin refill and to schedule an appt No answer and no voicemail available Will make another attempt to reach at a later date Patient identified by name and date of . Patient Attributed To: E Payer: [facility] Action Taken: Other Contact made with patient: No, Unable to leave message Elizabeth Guillermo RN Allergies As of Date: 01/26/2024 Noted Allergy Reaction DILAUDID (HYDROMORPHONE (BULK)) 03/08/2017 1 - Mental Status Change PENICILLIN 01/14/2017 16 - Unknown TORADOL (KETOROLAC) 01/14/2017 9 - Itching Date Reviewed: 04/02/2023 Reviewed by: Pham Hartley RN - Fully Assessed Reason for Visit: ACM EMY RN [[id number]] Cmt: Medication adherence and suspect condition review per request of payer Prescriptions as of 01/26/2024 - levETIRAcetam (KEPPRA) 500 mg tablet TAKE 1 TABLET BY MOUTH TWICE DAILY - allopurinol (ZYLOPRIM) 300 mg tablet Take 1 tablet by mouth once daily. - tamsulosin (FLOMAX) 0.4 mg Take 1 capsule by mouth once daily. - gabapentin (NEURONTIN) 100 mg capsule Take 1 capsule by mouth two times a day for 30 days. - blood sugar diagnostic test strip Use with blood glucose test 2 times daily. - azelastine 0.1% nasal spray Use 1 [place] in each nostril two times a day. - insulin glargine (LANTUS SOLOSTAR U-100 INSULIN) 100 unit/mL (3 mL) Inject 10 Units subcutaneously every morning. - JANUVIA 100 mg tablet take 1 tablet by mouth once daily - atenolol (TENORMIN) 50 mg tablet TAKE ONE-HALF TABLET BY MOUTH ONCE DAILY - rosuvastatin (CRESTOR) 10 mg tablet Take 1 tablet by mouth once daily. - flash glucose scanning reader ([employer] NICCI 2 READER) 1 Each every year. To monitor blood sugar continuously. E11.65. patient on insulin therapy - Insulin [place], Disposable, (PEN NEEDLE) 32 gauge x 5/32 Use to inject insulin twice daily. - oxyCODONE myristate (XTAMPZA ER) 9 mg CSpT Take 9 mg by mouth twice daily. - Insulin [place], Disposable, (PEN NEEDLE) 32 gauge x 5/32 Use to inject insulin up to 8 times per day. - Blood-Glucose Meter 1 Device three times daily. Test Three times a day. - Lancets lancets Use with blood glucose test 3 times daily. - alcohol swabs Use with blood glucose test 3 times daily. Meds Comments as of 07/23/2019: Poor historian, did not bring list of medication. Unable to verify today 07/22/2019 Problem List As Of Date 01/26/2024 Noted Resolved DKA (diabetic ketoacidosis) (HCC) [E11.10] 10/26/2021 08/04/2022 Epilepsy (HCC) [G40.909] 10/26/2021 Chronic back pain [M54.9, G89.29] 10/26/2021 Gout [M10.9] 10/26/2021 HTN (hypertension) [I10] 10/26/2021 Hyperlipidemia, mixed [E78.2] 10/26/2021 Prostate cancer (HCC) [C61] 10/26/2021 Chronic bilateral low back pain with bilateral *12/08/2021 DDD (degenerative disc disease), lumbar [M51.36]12/08/2021 Type 2 diabetes mellitus without complication, *12/08/2021 Encounter Status:Closed by ELIZABETH GUILLERMO on 01/26/24[facility] Telephone encounter Note* Telephone Encounter - Johanna Grider RN - 01/13/2024 11:42 AM EDT Akanksha from [facility] called, asking for lab results. Left result from last BW for Creatinine, BUN, GFR on her designated VM, asked her to if she needs BW results faxed over or with any other questions/concerns. Reason for Disposition Health Information question, no triage required and triager able to answer question Answer Assessment - Initial Assessment Questions 1. REASON FOR CALL or QUESTION: Calling from [facility] asking for lab results. Protocols used: Information Only Call - No [id number] [facility]06-[facility]24 Miscellaneous Notes* Telephone Encounter - Johanna Grider RN - 01/13/2024 11:42 AM EDT Akanksha from [facility] called, asking for lab results. Left result from last BW for Creatinine, BUN, GFR on her designated VM, asked her to CB if she needs BW results faxed over or with any other questions/concerns. Reason for Disposition Health Information question, no triage required and triager able to answer question Answer Assessment - Initial Assessment Questions 1. REASON FOR CALL or QUESTION: Calling from [facility] asking for lab results. Protocols used: Information Only Call - No [id number] documented in this encounterChillicothe [facility]06-22-2024 Telephone encounter Note * Telephone Encounter - aSranya Dextre MA - 01/07/2024 11:05 AM EDT Prescription Refill Information The patient has been identified by name and date of : Yes Caregiver verified no other encounters exist for this prescription request: Yes Caregiver confirmed with patient/requestor that no other refills are due, in the near future, with this provider at this time: Yes The last office visit in the department: 06/15/23 Does the patient have a future office visit with this provider/department: No Requested Prescriptions Pending Prescriptions Disp Refills levETIRAcetam (KEPPRA) 500 mg tablet [Pharmacy Med Name: levETIRAcetam 500 MG Oral Tablet] 200 tablet 2 Sig: TAKE 1 TABLET BY MOUTH TWICE DAILY Saranya Dexter MA January 07, 2024 11:06 AM [facility]06-22-2024 Miscellaneous Notes* Telephone Encounter - Saranya Dexter MA - 01/07/2024 11:05 AM EDT Prescription Refill Information The patient has been identified by name and date of : Yes Caregiver verified no other encounters exist for this prescription request: Yes Caregiver confirmed with patient/requestor that no other refills are due, in the near future, with this provider at this time: Yes The last office visit in the department: 06/15/23 Does the patient have a future office visit with this provider/department: No Requested Prescriptions Pending Prescriptions Disp Refills levETIRAcetam (KEPPRA) 500 mg tablet [Pharmacy Med Name: levETIRAcetam 500 MG Oral Tablet] 200 tablet 2 Sig: TAKE 1 TABLET BY MOUTH TWICE DAILY Saranya Dexter MA January 07, 2024 11:06 AM documented in this encounterChillicothe Va Medical Center04-18-2024 Miscellaneous Notes* Telephone Encounter - Cesar Manjarrez APRN.CNP - 11/03/2023 4:24 PM EDT Please give patient the following resources (see previous message) Cesar Manjarrez APRN.CNP * Telephone Encounter - Nikki Cash PSS - 11/03/2023 4:20 PM EDT Medical Care at home referral was received for Primary Care services. Unfortunately the referral isdeclined at this time due to geographic location. Thank you for the referral. Please see other options below: [facility] - [phone] (most insurances accepted, no Medicaid only) [facility] - [phone] (Traditional Medicare and [employer] only) [facility] - [phone] ([place], [facility]) Traditional Medicare and [facility] Medicare only) [facility] - [phone] (most insurances accepted) Patient discharged from Medical Care at Home: Discharge Reason: Moved out of [facility] Service Area Discharge Date: 11/03/2023 Please cancel any pending orders-[facility] ,[facility], upcoming appointments with [facility] ALIX Goncalves * Telephone Encounter - Nikki Cash PSS - 11/03/2023 4:20 PM EDT MEDICAL CARE AT HOME [facility] REFERRAL Date Referral Received: 11/03/2023 Referral Source: [facility] Physician office Date of : 1935 Age: [age] year old PCP: Keyla Schultz MD Visit address from [facility]: [address] [place] [address] Reason for referral: Ongoing Primary Care Name of Physician who gave the order: Cesar Manjarrez APRN, CNP Other services ordered: None Primary Insurance Company: Payor: [facility] / Plan: [facility] HMO / Product Type: HMO / Primary Insurance ID Number: [id number] documented in this encounterChillicothe Va Medical Center04-04-2024 Miscellaneous Notes* Telephone Encounter - Heidy Amin - 10/20/2023 10:48 AM EDT 1st attempt, called patient and vm is not set up * Telephone Encounter - Lisbet Gallegos APRN.CNP - 10/20/2023 9:16 AM EDT Please inform patient that they are due for OV and assist in scheduling with PCP team. Thanks. * Telephone Encounter - Delia Chaves LPN - 10/20/2023 8:30 AM EDT Pharmacy verified in [facility] Patient has been identified by name and date of : Yes Patient aware RX will be sent to pharmacy. No need to notify patient. Pharmacy phones for refill(s): Requested Prescriptions Pending Prescriptions Disp Refills levETIRAcetam (KEPPRA) 500 mg tablet [Pharmacy Med Name: levETIRAcetam 500 MG Oral Tablet] 200 tablet 2 Sig: TAKE 1 TABLET BY MOUTH TWICE DAILY Date of last office visit : 07/26/2022 Date of next office visit : Visit date not found Last 2 Encounter Wt Readings: Date: Wt: 04/02/2023 81.6 kg (180 lb) 10/16/2022 81.7 kg (180 lb 1.9 oz) Not applicable Please advise. Delia Chaves LPN documented in this encounterChillicothe Va Medical Center03-25-2024 Miscellaneous Notes* Telephone Encounter - Stephen Berry LPN - 10/10/2023 11:41 AM EDT Per separate encounter, consult for palliative medicine placed for pt. * Telephone Encounter - Akanksha Morales - 10/07/2023 11:48 AM EDT Akanksha from [facility] was calling a Delia back regarding home health care. She states she is the Kidney RN for Lino and recommended calling [facility] Customer [facility] for more assistance regarding the home health care physical therapy. [facility] Customer Service: [phone] She reached out to them and they told her the only home health care physical therapy service they had in the area was [facility]. Akanksha [facility] - [phone] * Telephone Encounter - Cesar Manjarrez APRN.CNP - 10/07/2023 11:24 AM EDT Patient was re[facility] for a palliative care consult, will see if eligible. Cesar Manjarrez APRN.SISSY * Telephone Encounter - Stephen Berry LPN - 10/05/2023 11:44 AM EDT Arrangements in process for home physician. Seeking PCP advice d/t request from PCP for visit. * Telephone Encounter - Keyla Schultz MD - 10/05/2023 10:23 AM EDT He hasn't been seen or examined for over a year. He should be seen in office or make arrangements for a home physician? Keyla Schultz MD * Telephone Encounter - Stephen Berry LPN - 10/04/2023 5:17 PM EDT Called and spoke with pt . Pt states she would like a phone call visit with provider. Please advise. * Telephone Encounter - Keyla Schultz MD - 10/04/2023 3:45 PM EDT Lab Kidney, liver function and glucose are normal. Uric acid is normal/ low. Lipid results: Triglycerides within optimal range. HDL good cholesterol is in acceptable range. This can be improved with exercise. Target for HDL cholesterol is >45 mg/dl. LDL cholesterol below 70 is considered optimal. Excellent result. Keppra level is low Please schedule appointment Keyla Schultz MD documented in this encounterChillicothe Va Medical Center03-19-2024 History of Present illness Narrative* Kadi Santos LSW - 10/04/2023 11:46 AM EDT Primary Care Social Work Provider Action / FYI PCP Action Date of Service: 10/04/2023 Patient identified by name and date of : No Referral Source: Referral Patient Outreach: Follow Up Mode of Outreach: Phone Call Response Time: Unable to reach (2nd Attempt) Left message by: Could not leave message. Currently not accepting calls. IZZY Thomas October 04, 2023 11:51 AM documented in this encounterChillicothe Va Medical Center03-19-2024 Miscellaneous Notes* Telephone Encounter - Keyla Schultz MD - 10/04/2023 8:14 AM EDT He is overdue for in office visit 1 fill for 30 days only The following approved medication requests have been transmitted electronically. Requested Prescriptions Signed Prescriptions Disp Refills gabapentin (NEURONTIN) 100 mg capsule 60 capsule 2 Sig: Take 1 capsule by mouth two times a day for 30 days. Authorizing Provider: KEYLA SCHULTZ tamsulosin (FLOMAX) 0.4 mg 60 capsule 0 Sig: TAKE 1 CAPSULE BY MOUTH ONCE DAILY Authorizing Provider: KEYLA SCHULTZ MD * Telephone Encounter - Delia Chaves LPN - 10/03/2023 1:32 PM EDT Pharmacy verified in Epic Patient has been identified by name and date of : Yes Patient aware RX will be sent to pharmacy. No need to notify patient. Pharmacy phones for refill(s): Requested Prescriptions Pending Prescriptions Disp Refills gabapentin (NEURONTIN) 100 mg capsule [Pharmacy Med Name: Gabapentin 100 MG Oral Capsule] 200 capsule 2 Sig: Take 1 capsule by mouth two times a day. tamsulosin (FLOMAX) 0.4 mg [Pharmacy Med Name: Tamsulosin HCl 0.4 MG Oral Capsule] 100 capsule 2 Sig: TAKE 1 CAPSULE BY MOUTH ONCE DAILY Date of last office visit : 07/26/2022 Date of next office visit : Visit date not found Last 2 Encounter Wt Readings: Date: Wt: 04/02/2023 81.6 kg (180 lb) 10/16/2022 81.7 kg (180 lb 1.9 oz) Not applicable Please advise. Delia Chaves LPN documented in this encounterChillicothe Va Medical Center03-18-2024 Miscellaneous Notes* Telephone Encounter - Delia Chaves LPN - 10/03/2023 1:36 PM EDT Left VM for Akanksha * Telephone Encounter - Delia Chaves LPN - 09/28/2023 11:56 AM EDT Left VM for Akanksha * Telephone Encounter - Veronica Rothman - 09/28/2023 9:48 AM EDT Akanksha, with [facility], called back to speak with Delia who left her a message yesterday. Please call her back at [phone] then [phone] again. * Telephone Encounter - Delia Chaves LPN - 09/27/2023 10:17 AM EDT LM for Akanksha stating that the agencies that will travel to his area will not accept his insurance and that [facility] is full and unable to accept new patients when referred * Telephone Encounter - Antoinette Grider - 09/26/2023 2:45 PM EDT Akanksha with [employer] calling inquiring about home health services for the patient. Patient is requesting physical therapy. [employer] requesting an order. Please return call to Akanksha @ [employer]. [phone] then [phone] again. documented in this encounterChillicothe Va Medical Center03-13-2024 Miscellaneous Notes* Telephone Encounter - Dian Bautista MA - 09/28/2023 9:29 AM EDT Pharmacy verified in Epic Patient has been identified by name and date of : Yes Patient aware RX will be sent to pharmacy. No need to notify patient. Pharmacy phones for refill(s): Requested Prescriptions Pending Prescriptions Disp Refills allopurinol (ZYLOPRIM) 300 mg tablet [Pharmacy Med Name: Allopurinol 300 MG Oral Tablet] 100 tablet2 Sig: TAKE 1 TABLET BY MOUTH ONCE DAILY Date of last office visit : 07/26/2022 Date of next office visit : Visit date not found Last 2 Encounter Wt Readings: Date: Wt: 04/02/2023 81.6 kg (180 lb) 10/16/2022 81.7 kg (180 lb 1.9 oz) Thyroid: No results found for: TSH Diabetes: Hemoglobin A1C (%) Date Value 02/23/2023 5.8 Hemoglobin A1C (POCT) (%) Date Value 03/16/2022 5.8 Cholesterol: Triglyceride (mg/dL) Date Value 02/23/2023 97 HDL Cholesterol (mg/dL) Date Value 02/23/2023 44 LDL Cholesterol (mg/dL) Date Value 02/23/2023 53 LDL Cholesterol, Nonfasting (mg/dL) Date Value 10/26/2021 29 ALT (U/L) Date Value 02/23/2023 11 Non HDL Cholesterol (mg/dL) Date Value 02/23/2023 72 Blood Pressure: BUN (mg/dL) Date Value 02/23/2023 15 Creatinine (mg/dL) Date Value 02/23/2023 0.80 Sodium (mmol/L) Date Value 02/23/2023 141 Potassium (mmol/L) Date Value 02/23/2023 4.8 Last 1 Encounter BP Readings: Date: BP: 04/02/2023 161/86 Coumadin: No results found for: INR Blood Counts: RBC (m/uL) Date Value 11/09/2021 4.12 WBC (k/uL) Date Value 11/09/2021 7.60 Hematocrit (%) Date Value 11/09/2021 39.9 Hemoglobin (g/dL) Date Value 11/09/2021 12.8 Platelet Count (k/uL) Date Value 11/09/2021 299 Liver Function: ALT (U/L) Date Value 02/23/2023 11 AST (U/L) Date Value 02/23/2023 17 Potassium: Potassium (mmol/L) Date Value 02/23/2023 4.8 B12: No results found for: B12 Please advise. Dian Bautista MA documented in this encounterChillicothe Va Medical Center03-08-2024 History of Present illness Narrative* Kadi Santos LSW - 09/23/2023 4:10 PM EST Primary Care Social Work Provider Action / FYI PCP Action Date of Service: 09/23/2023 Patient identified by name and date of : No Referral Source: Referral Patient Outreach: Initial Mode of Outreach: Phone Call Response Time: Unable to reach (1st Attempt) Left message by: Voicemail IZZY Thomas September 23, 2023 4:20 PM documented in this encounterChillicothe Va Medical Center03-06-2024 Miscellaneous Notes* Telephone Encounter - Stephen Berry LPN - 09/21/2023 12:57 PM EST noted * Telephone Encounter - Johanna Selby - 09/20/2023 4:34 PM EST Lino is calling Keyla Schultz MD today with concern regarding FYI-No Action Needed [facility] calling to let us know that they can NOT accept patient due to insurance/staffing. Patient has been identified by name and birthdate. Duration of symptoms: N/A Person calling: [facility] care [phone] Was an appointment scheduled: No Closing statement: Results or non-symptom based questions: Thank you for calling [facility], your call will be returned within the next business day. Johanna Thomson documented in this encounterCleveland [id number] Miscellaneous Notes* Telephone Encounter - Stephen Berry LPN - 09/01/2023 4:47 PM EST Called and notified pt Radha. Radha states she will wait for home health to reach out toinitiate re evaluation lino. * Telephone Encounter - Cesar Manjarrez APRN.CNP - 09/01/2023 4:[address] Schultz's message for patient. Cesar Manjarrez APRN.CNP * Telephone Encounter - Keyla Schultz MD - 09/01/2023 3:49 PM EST Last documentation we see on home health was home visit from a [facility] home health PA in January 2022. Will initiate consult, the home health may want you to switch to a visiting physician for your care(depends on their availability in your area). Since you weren't in the hospital and haven't been seen in person for a while it may be a challengeto get the home health started. Encounter Diagnosis ICD-10-CM 1. Chronic low back pain, unspecified back pain laterality, unspecified whether sciatica present M54.50 [facility] G89.29 2. Type 2 diabetes mellitus without complication, with long-term current use of insulin ([facility]) E11.9CONSULT TO [facility] Z79.4 3. DDD (degenerative disc disease), lumbar M51.36 CONSULT TO [facility] 4. Nonintractable epilepsy without status epilepticus, unspecified epilepsy type ([facility]) G40.909 CONSULT TO [facility] 5. Generalized weakness R53.1 CONSULT TO [facility] Keyla Schultz MD * Telephone Encounter - Ana Luisa Ash - 09/01/2023 10:32 AM EST Radha called asking for [facility] health help for Lino. She stated she cannot get him out to get labs, etc done. He has a hard time walking as his legs are weak. Stated she has been taking care of him on her own, and needs help. The previous C was in 2021 after he came home from the hospital. She would like the same group. Stated one of the nurses was Ashley Dillard. Please call and advise on an update regarding this. documented in this encounterChillicothe Va Medical Center02-15-2024 Miscellaneous Notes* Telephone Encounter - Hardik Sotomayor PSS - 09/01/2023 4:00 PM EST Thank you for the referral of your patient to [facility]. At this time, we are at capacity and are unable to accept your patient. In order to help your patient receive quality home care, we have included reputable agencies that service this area: [facility] [phone] or [place] [phone]. Please contact this agency and they will work with your patient to arrange timely services. Thank you, ALIX Rivera 09/01/2023 4:00 PM documented in this encounterChillicothe Va Medical Center11-29-2023 History of Present illness Narrative* Keyla Schultz MD - 06/15/2023 2:20 PM EST This Team Access Model visit is a phone encounter. It required patient-provider interaction for themedical decision making as documented below. The patient consented to proceed by telephone before initiating the encounter. DISTANCE HEALTH VISIT Lino Wheeler is a 87 year old male seen for follow up. Chronic Pain - Fell 3 weeks ago - Was going down stairs and his leg gave out - Did not go to the ER - states that he uses a walker at the house - Has been going to pain management in [place] for his chronic back pain - Received steroid shots - Managed on Xtampza extended release Sinuses - Has been endorsing sinus congestion - Has been using Afrin Hypertension - Currently managed on atenolol 50 mg tablet 0.5 tablets once daily - BP today is 110/68 Diabetes - Currently managed on Januvia 100 mg tablet once daily and insulin glargine 18 units daily in the morning - A1C is 5.8% as of 02/23/2023 - BS today was 97 - Checks BS twice a day HISTORY REVIEWED (electronic chart updated): - medical history - medications - allergies REVIEW OF SYSTEMS: General: Feels well, no weight changes, fever, chills. HEENT: +sinus congestion, no earache or sore throat. Cardiac: No chest pain, palpitations Resp: No cough, wheeze, shortness of breath GI: No reflux symptoms, food intolerance, bowel changes. : No urinary frequency, dysuria. MS: +Chronic back pain PHYSICAL EXAMINATION: VIDEO EXAM: performed via video enabled technology No exam performed No physical exam performed today (phone encounter). Data Reviewed: Component Latest Ref Rng & Units 02/23/2023 Protein, Total 6.3 - 8.0 g/dL 6.6 Albumin 3.9 - 4.9 g/dL 3.8 (L) Calcium 8.5 - 10.2 mg/dL 9.7 Bilirubin, Total 0.2 - 1.3 mg/dL 0.8 Alkaline Phosphatase 38 - 113 U/L 67 AST 14 - 40 U/L 17 ALT 10 - 54 U/L 11 Glucose 74 - 99 mg/dL 128 (H) BUN 9 - 24 mg/dL 15 Creatinine 0.73 - 1.22 mg/dL 0.80 Sodium 136 - 144 mmol/L 141 Potassium 3.7 - 5.1 mmol/L 4.8 Chloride 97 - 105 mmol/L 105 CO2 22 - 30 mmol/L 27 Anion Gap 9 - 18 mmol/L 9 eGFR >=60 mL/min/1.73m 86 Cholesterol, Total <200 mg/dL 116 Triglyceride <150 mg/dL 97 HDL Cholesterol >39 mg/dL 44 Non HDL Cholesterol <130 mg/dL 72 Fasting Time hrs 12 VLDL Cholesterol <30 mg/dL 19 TC:HDL Ratio <5.10 2.64 LDL Cholesterol <100 mg/dL 53 LDL:HDL Ratio <2.54 1.20 Hemoglobin A1C 4.3 - 5.6 % 5.8 (H) Estimated Average Glucose mg/dL 120 ASSESSMENT/PLAN: This encounter occurred by phone over the course of 14 minutes. (M54.42, M54.41, G89.29) Chronic bilateral low back pain with bilateral sciatica (primary encounterdiagnosis) Comment: Follows with pain management regularly. Has recently received a steroid injection with benefit. Also managed on Xtampza extended release. Plan: Continue to follow with pain management (R29.6) Frequent falls Comment: Most recent fall 3 weeks ago. Did not sustain any major injuries. Did not go to the ER. Uses a walker at home Plan: Continue to monitor Continue to use walker (E11.9, Z79.4) Type 2 diabetes mellitus without complication, with long-term current use of insulin(HCC) Comment: Well controlled. Checks BS at home twice a day. A1C is 5.8% as of 02/2023. Due for routine labs in July 2023 Plan: HGB A1C, CBC (C61) Prostate cancer (HCC) Comment: Due for PSA in July 2023 Plan: PSA/PROSTSPECAG DIAG (I10) Hypertension, unspecified type Comment: Well controlled. Due for routine lab in July 2023 Plan: COMP METABOLIC PANEL Continue current regimen (G40.909) Nonintractable epilepsy without status epilepticus, unspecified epilepsy type (HCC) Comment: Managed on Keppra, in need of refill. Plan: LEVETIRACETAM Continue current regimen (E78.2) Hyperlipidemia, mixed Comment: Managed on statin. Due for routine lab in July 2023 Plan: LIPID PANEL BASIC Requested Prescriptions Signed Prescriptions Disp Refills insulin glargine (LANTUS SOLOSTAR U-100 INSULIN) 100 unit/mL (3 mL) 30 mL 5 Sig: Inject 10 Units subcutaneously every morning. RTO: 6 months Scribe Attestation: By signing my name below, I, Neo Coles, attest that this documentation has been prepared under the direction and in the presence of Saulo Schultz M.D.. Electronically Signed: Janice Yates. June 15, 2023 2:20 PM. This telehealth encounter is provided under a state of emergency due to COVID19 and is for care forcondition where providing the care is supportive of minimizing potential exposure and/or transmission of COVID19. Provider Attestation: I, Keyla Schultz MD, personally performed the services described in this documentation. All medical record entries made by the scribe were at my direction and in my presence. I have reviewed the chart and discharge instructions (if applicable), and agree that the record reflects my personal performance and is accurate and complete. Electronically Signed: Keyla Schultz MD June 15, 2023 5:05 PM documented in this encounterChillicothe Va Medical Center11-27-2023 Miscellaneous Notes* Telephone Encounter - Kaet Melchor RN - 06/13/2023 10:43 AM EST Called Radha. Patient did not need a refill, but made Radha aware that Rx has been sent to [facility]. She has 3 vials of Lantus at home and will give the 18 units. Patient is not active on [employer] to do a virtual visit. Radha accepted a provider phone call visit on TueJun 15 at 2:40 PM. Scheduled. * Telephone Encounter - Keyla Schultz MD - 06/13/2023 10:29 AM EST Virtual visit sounds easier for him to manage. Appears the current insulin dose is 18 units, which is adequate. The following approved medication requests have been transmitted electronically. Requested Prescriptions Signed Prescriptions Disp Refills insulin glargine (LANTUS SOLOSTAR U-100 INSULIN) 100 unit/mL (3 mL) 30 mL 2 Sig: Inject 18 Units subcutaneously every morning. Rx sent to [facility]. Is that correct? 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 Patient was to follow up in 6 months to one year with PCP, no appt scheduled. Called to speak to spouse Radha. The March 2023 Rx confused spouse, because she has been giving him 18 units and the Rx said 21.She did not increase to 21, she kept with the 18 units. Gluc checks twice a day. Mornings have been: 85, 82, 104, 86, 94, 79, 121, 85, 146, 104, 106, 79, 179, 96 (never dipping below the high 70s) asymptomatic of these numbers and awakens easily in the mornings. Evenings have been 117, 132, 128, 172, 140, 164, 114 Gets Lantus in the morning when he wakes up. Average bfast: boiled or scrambled egg, frozen waffles, blackberries Average lunch: Not eating a dedicated lunch, more eats throughout the day [place] no sugar ice cream bars, glucose control Boost, water, no sugar Sunkist diet pop Average dinner: mac and cheese, sometimes peas, states picky with meals and hard to plan meals Offered to schedule an appointment to follow up. The last time they arranged for the office staff to come help him get him into the office, but when it came time to leave, she said he would not get in the car. Suggested encouraging an appointment and try to see what his barriers are to coming in. Spouse did not schedule at this time. Pended med update. Reason for Disposition Caller has medicine question only, adult not sick, AND triager answers question Answer Assessment - Initial Assessment Questions 1. NAME of MEDICINE: Lantus 2. QUESTION: Dosing 3. PRESCRIBER: PCP 4. SYMPTOMS: No 5. : N/A Protocols used: Medication Question [id number] * Telephone Encounter - Johanna Selby - 06/13/2023 9:26 AM EST Lino Wheeler is calling Keyla Schultz MD today with concern regarding Medication Problem insulin glargine (LANTUS SOLOSTAR U-100 INSULIN) 100 unit/mL (3 mL) 30 mL 2 03/24/2023 -- Sig: Inject 21 Units subcutaneously every morning. Sent to pharmacy as: insulin glargine (LANTUS SOLOSTAR U-100 INSULIN) 100 unit/mL (3 mL) States she has been giving him 18 units? Wants to know which she should be doing? His sugar has been low in the mornings maybe this is why? Patient has been identified by name and birthdate. Duration of symptoms: N/A Person calling: spouse: Radha Call patient at: at home [phone] (home) Was an appointment scheduled: No Closing statement: Results or non-symptom based questions: Thank you for calling [facility], your call will be returned within the next business day. Johanna Thomson documented in this encounterChillicothe [facility] Center10-12-2023 Miscellaneous Notes* Telephone Encounter - Stephen Berry - 04/28/2023 1:44 PM EDT Called and spoke with pt . She states pt is still coming to see Dr. Schultz but requested appt for 05/02 be moved to 05/06 in order for adequate time for pt to complete bloodwork that was ordered.Pt rescheduled. Pt confirms [facility] is the service pt uses for glucose testing supplies. Order form faxed. * Telephone Encounter - Keyla Schultz MD - 04/28/2023 1:18 PM EDT Received glucse supply request from [facility]. 1) is patient still planning to see Dr Schultz 2) is he using this supply company? He is overdue for follow up visit. Lab order placed. Telephone on 04/28/23 COMP METABOLIC PANEL LIPID PANEL BASIC HGB A1C The form was filled out but please check with patient before sending it Keyla Schultz MD documented in this encounterChillicothe Va [facility] Center09-12-2023 Miscellaneous Notes* Telephone Encounter - Saranya Pryor - 03/29/2023 10:01 AM EDT Called patient and made appt * Telephone Encounter - Keyla Schultz MD - 03/25/2023 10:49 AM EDT The following approved medication requests have been transmitted electronically. Requested Prescriptions Signed Prescriptions Disp Refills allopurinol (ZYLOPRIM) 300 mg tablet 100 tablet 1 Sig: TAKE 1 TABLET BY MOUTH ONCE DAILY Authorizing Provider: KEYLA SCHULTZ Appt by July Keyla Schultz MD * Telephone Encounter - Delia Chaves LPN - 03/25/2023 10:42 AM EDT Pharmacy verified in Epic Patient has been identified by name and date of : Yes Patient aware RX will be sent to pharmacy. No need to notify patient. Pharmacy phones for refill(s): Requested Prescriptions Pending Prescriptions Disp Refills allopurinol (ZYLOPRIM) 300 mg tablet [Pharmacy Med Name: Allopurinol 300 MG Oral Tablet] 100 tablet2 Sig: TAKE 1 TABLET BY MOUTH ONCE DAILY Date of last office visit : 07/26/2022 Date of next office visit : Visit date not found Last 2 Encounter Wt Readings: Date: Wt: 10/16/2022 81.7 kg (180 lb 1.9 oz) 07/26/2022 0 kg () Not applicable Please advise. Delia Chaves LPN documented in this encounterChillicothe Va [facility] Center09-11-2023 Miscellaneous Notes* Telephone Encounter - Aj Lin - 03/28/2023 9:44 AM EDT Called pt and informed that his medication was sent to [facility]. Pt and pt's spouse was ok with the information and had no questions at this time. * Telephone Encounter - Keyla Schultz MD - 03/24/2023 1:02 PM EDT The following approved medication requests have been transmitted electronically. Requested Prescriptions Signed Prescriptions Disp Refills insulin glargine (LANTUS SOLOSTAR U-100 INSULIN) 100 unit/mL (3 mL) 30 mL 2 Sig: Inject 21 Units subcutaneously every morning. Authorizing Provider: KEYLA SCHULTZ Pharmacy Information Pharmacy Address Telephone [facility] ([facility]) [address] [place] [phone] Keyla Schultz MD * Telephone Encounter - Delia Chaves LPN - 03/24/2023 8:44 AM EDT Pharmacy verified in Epic Patient has been identified by name and date of : Yes Patient aware RX will be sent to pharmacy. No need to notify patient. Pharmacy phones for refill(s): Requested Prescriptions Pending Prescriptions Disp Refills LANTUS SOLOSTAR U-100 INSULIN 100 unit/mL (3 mL) [Pharmacy Med Name: Lantus SoloStar 100 UNIT/ML Subcutaneous Solution Pen-injector] 30 mL 2 Sig: INJECT SUBCUTANEOUSLY 21 UNITS IN THE MORNING Date of last office visit : 07/26/2022 Date of next office visit : Visit date not found Last 2 Encounter Wt Readings: Date: Wt: 10/16/2022 81.7 kg (180 lb 1.9 oz) 07/26/2022 0 kg () Diabetes: Hemoglobin A1C (%) Date Value 02/23/2023 5.8 Hemoglobin A1C (POCT) (%) Date Value 03/16/2022 5.8 Please advise. Delia Chaves LPN documented in this encounterChillicothe [facility] Medical Center08-07-2023 Miscellaneous Notes* Telephone Encounter - Saranya Pryor - 02/21/2023 6:39 PM EDT Talked to patients and made video call. She said that they won't be able to figure out how to do that. Can this be a provider phone call? Please advise documented in this encounterChillicothe Va Medical Center08-03-2023 Miscellaneous Notes* Telephone Encounter - Ashley Anderson - 02/17/2023 12:23 PM EDT 1st attempt, called patient, no answer. VM hasn't been set up. * Telephone Encounter - Cesar Manjarrez APRN.SISSY - 02/16/2023 2:53 PM EDT Due for fasting labs and office before next fill. 90 day supply sent. Lab orders placed. Cesar Manjarrez APRN.SISSY * Telephone Encounter - Delia Chaves LPN - 02/16/2023 2:34 PM EDT Pharmacy verified in [facility] Patient has been identified by name and date of : Yes Patient aware RX will be sent to pharmacy. No need to notify patient. Pharmacy phones for refill(s): Requested Prescriptions Pending Prescriptions Disp Refills SITagliptin phosphate (JANUVIA) 100 mg tablet 90 tablet 3 Sig: Take 1 tablet by mouth once daily. Date of last office visit : 07/26/2022 Date of next office visit : Visit date not found Last 2 Encounter Wt Readings: Date: Wt: 10/16/2022 81.7 kg (180 lb 1.9 oz) 07/26/2022 0 kg () Diabetes: Hemoglobin A1C (%) Date Value 06/29/2022 5.7 Hemoglobin A1C (POCT) (%) Date Value 03/16/2022 5.8 Please advise. Delia Chaves LPN * Telephone Encounter - Akanksha Morales - 02/16/2023 11:13 AM EDT Pharmacy verified in [facility] Patient has been identified by name and date of : Yes Patient aware RX will be sent to pharmacy. No need to notify patient. Spouse phones for refill(s): Requested Prescriptions Pending Prescriptions Disp Refills SITagliptin phosphate (JANUVIA) 100 mg tablet 90 tablet 3 Sig: Take 1 tablet by mouth once daily. Date of last office visit : 07/26/2022 Date of next office visit : Visit date not found Last 2 Encounter Wt Readings: Date: Wt: 10/16/2022 81.7 kg (180 lb 1.9 oz) 07/26/2022 0 kg () Please advise. Akanksha Thomson documented in this encounterChillicothe [facility] Medical Center07-14-2023 Miscellaneous Notes* Telephone Encounter - Nikki Cash PSS - 01/28/2023 3:55 PM EDT [facility] home referral was received for Primary Care services. Unfortunately the referral isdeclined at this time due to geographic location. Thank you for the referral. ALIX Goncalves Patient discharged from [facility]: Discharge Reason: Moved out of [facility] Service Area Discharge Date: 01/28/2023 Please cancel any pending orders-[facility] ,[facility], upcoming appointments with [facility] * Telephone Encounter - Nikki Cash PSS - 01/28/2023 3:54 PM EDT [facility] REFERRAL Date Referral Received: 01/28/2023 Referral Source: [facility] Physician office Date of : 1935 Age: [age] year old PCP: Keyla Schultz MD Visit address from [facility]: [address] [place] [address] Reason for referral: Ongoing Primary Care Name of Physician who gave the order: Dr. Saulo Schultz Other services ordered: None Primary Insurance Company: Payor: [facility] / Plan: [facility] [employer] HMO / Product Type: HMO / Primary Insurance ID Number: [id number] documented in this encounterChillicothe [facility] Center07-03-2023 Miscellaneous Notes* Telephone Encounter - Kate Melchor RN - 01/17/2023 5:32 PM EDT Received records from [facility] 01/14/23. Lumbar Xray Sacrum/Coccyx Xray Placed imaging reports in PCP inbox for review. documented in this encounterChillicothe Va Medical Center05-10-2023 Miscellaneous Notes* Telephone Encounter - Delia Chaves LPN - 11/24/2022 10:21 AM EDT Pharmacy verified in Epic Patient has been identified by name and date of : Yes Patient aware RX will be sent to pharmacy. No need to notify patient. Patient phones for refill(s): Requested Prescriptions Pending Prescriptions Disp Refills blood sugar diagnostic test strip 300 Strip 5 Sig: Use with blood glucose test 2 times daily. Date of last office visit : 07/26/2022 Date of next office visit : Visit date not found Last 2 Encounter Wt Readings: Date: Wt: 10/16/2022 81.7 kg (180 lb 1.9 oz) 07/26/2022 0 kg () Diabetes: Hemoglobin A1C (%) Date Value 06/29/2022 5.7 Hemoglobin A1C (POCT) (%) Date Value 03/16/2022 5.8 Please advise. Delia Chaves LPN * Telephone Encounter - Antoinette Grider - 11/24/2022 10:10 AM EDT Please order the Accucheck RYAN Plus strips. * Telephone Encounter - Antoinette Grider - 11/24/2022 10:05 AM EDT Patient has been identified by name and date of : Yes Requested Prescriptions Pending Prescriptions Disp Refills blood sugar diagnostic test strip 300 Strip 5 Sig: Use with blood glucose test 2 times daily. Patient is testing 3x/daily. Please change to reflect the amount he tests. RX INSTRUCTIONS: Patient aware RX will be sent to pharmacy. No need to notify patient. Antoinette Grider documented in this encounterChillicothe Va Medical Center01-27-2023 Miscellaneous Notes* Telephone Encounter - Keyla Schultz MD - 08/13/2022 4:22 PM EST The following approved medication requests have been transmitted electronically. Requested Prescriptions Signed Prescriptions Disp Refills SITagliptin phosphate (JANUVIA) 100 mg tablet 90 tablet 3 Sig: Take 1 tablet by mouth once daily. Authorizing Provider: KEYLA SCHULTZ gabapentin (NEURONTIN) 100 mg capsule 180 capsule 3 Sig: Take 1 capsule by mouth twice daily for 90 days. Authorizing Provider: KEYLA SCHULTZ mirtazapine (REMERON) 15 mg tablet 90 tablet 3 Sig: Take 1 tablet by mouth daily at bedtime. Authorizing Provider: KEYLA SCHULTZ tamsulosin (FLOMAX) 0.4 mg 90 capsule 3 Sig: Take 1 capsule by mouth once daily. not taking Authorizing Provider: KEYLA SCHULTZ rosuvastatin (CRESTOR) 10 mg tablet 90 tablet 3 Sig: Take 1 tablet by mouth once daily. Authorizing Provider: KEYLA SCHULTZ levETIRAcetam (KEPPRA) 500 mg tablet 180 tablet 3 Sig: Take 1 tablet by mouth twice daily. Authorizing Provider: KEYLA SCHULTZ insulin glargine (LANTUS SOLOSTAR U-100 INSULIN) 100 unit/mL (3 mL) 19 mL 3 Sig: Inject 21 Units subcutaneously every morning. Authorizing Provider: KEYLA SCHULTZ atenolol (TENORMIN) 50 mg tablet 45 tablet 3 Sig: Take 0.5 tablets by mouth once daily. Authorizing Provider: KEYLA SCHULTZ allopurinol (ZYLOPRIM) 300 mg tablet 90 tablet 3 Sig: Take 1 tablet by mouth once daily. Authorizing Provider: KEYLA SCHULTZ MD * Telephone Encounter - Delia Chaves LPN - 08/13/2022 11:08 AM EST Pharmacy verified in [facility] Patient has been identified by name and date of : Yes Patient aware RX will be sent to pharmacy. No need to notify patient. Patient phones for refill(s): Requested Prescriptions Pending Prescriptions Disp Refills SITagliptin phosphate (JANUVIA) 100 mg tablet 90 tablet 3 Sig: Take 1 tablet by mouth once daily. gabapentin (NEURONTIN) 100 mg capsule 180 capsule 3 Sig: Take 1 capsule by mouth twice daily for 90 days. mirtazapine (REMERON) 15 mg tablet 90 tablet 3 Sig: Take 1 tablet by mouth daily at bedtime. tamsulosin (FLOMAX) 0.4 mg 90 capsule 3 Sig: Take 1 capsule by mouth once daily. not taking rosuvastatin (CRESTOR) 10 mg tablet 90 tablet 3 Sig: Take 1 tablet by mouth once daily. levETIRAcetam (KEPPRA) 500 mg tablet 180 tablet 3 Sig: Take 1 tablet by mouth twice daily. insulin glargine (LANTUS SOLOSTAR U-100 INSULIN) 100 unit/mL (3 mL) 19 mL 3 Sig: Inject 21 Units subcutaneously every morning. atenolol (TENORMIN) 50 mg tablet 45 tablet 3 Sig: Take 0.5 tablets by mouth once daily. allopurinol (ZYLOPRIM) 300 mg tablet 90 tablet 3 Sig: Take 1 tablet by mouth once daily. Date of last office visit : 07/26/2022 Date of next office visit : Visit date not found Last 2 Encounter Wt Readings: Date: Wt: 07/26/2022 0 kg () 03/16/2022 78.9 kg (174 lb) Diabetes: Hemoglobin A1C (%) Date Value 06/29/2022 5.7 Hemoglobin A1C (POCT) (%) Date Value 03/16/2022 5.8 Cholesterol: Triglycerides, Nonfasting (mg/dL) Date Value 10/26/2021 183 HDL Cholesterol, Nonfasting (mg/dL) Date Value 10/26/2021 39 LDL Cholesterol, Nonfasting (mg/dL) Date Value 10/26/2021 29 ALT (U/L) Date Value 10/25/2021 25 Non HDL Cholesterol, Nonfasting (mg/dL) Date Value 10/26/2021 66 Blood Pressure: BUN (mg/dL) Date Value 06/29/2022 20 Creatinine (mg/dL) Date Value 06/29/2022 0.87 Sodium (mmol/L) Date Value 06/29/2022 139 Potassium (mmol/L) Date Value 06/29/2022 4.3 Last 1 Encounter BP Readings: Date: BP: 07/26/2022 103/62 Please advise. Delia Chaves LPN documented in this encounterChillicothe [facility] Medical Center01-11-2023 Miscellaneous Notes* Telephone Encounter - Stephen Berry - 2022 12:27 PM EST Called and informed pt. * Telephone Encounter - Keyla Schultz MD - 07/27/2022 3:07 PM EST The PSA is OK The Keppra level is OK No additional orders. Keyla Schultz MD documented in this encounterChillicothe Va Medical Center01-09-2023 History of Present illness Narrative* Keyla Schultz MD - 07/26/2022 11:18 AM EST CHIEF COMPLAINT Patient presents with: Follow Up: insomnia HISTORY OF PRESENT ILLNESS Lino Wheeler is a 86 year old male who presents here today for a follow-up of chronic medical conditions. I last saw this patient on (12/08/2021). The patient is with his today. Chronic back pain He is miserable with his back pain , sees Dr Danika morales mgt , who gives him Xtampza extended releas morphine. He says it's not enough relief doesn't like the shots Basali gives him. :no one's helping me. He is on low dose gabapentin for numbness in feet/ not much relief there. Dr Trevizo has mentioned intrathecal pain pump Insomnia The patient endorses that he cannot sleep/sleeps poorly. Not much relief with hydroxyzine. Left shoulder/carpal tunnel The patient says he is having trouble with his left rotator cuff and carpal tunnel. Chronic pain ofL shoulder Says he has had pain for over 2 years now. The carpal tunnel (his diagnosis) makes it difficult to use his hands. The patient says he got an MRI on his shoulder some time back (not readily apparent on Care Everywhere) Diabetes The patient says his sugars are good. He checks it daily. 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 Seizures The patient says he hasn't had any seizures in over 25 years. He takes Keppra daily. Says he saw a Neurologist in [place]. Health Maintenance Reviewed. Not interested in vaccines. Labs reviewed. Past medical history, appointments, medications, allergies reviewed. REVIEW OF SYSTEMS Pertinent positives/ negatives: +insomnia General: Feels well, no fever, no chills, no unintentional weight gain. HEENT: No sinus congestion, earache, sore throat. Cardiac: No chest pain, palpitations Resp: No cough, wheeze, shortness of breath GI: No reflux symptoms, food intolerance, bowel changes. : No urinary frequency, dysuria. MS: +back pain with sciatica, +left shoulder pain PAST MEDICAL HISTORY PAST MEDICAL HISTORY Diagnosis Date Chronic pain Diabetes (HCC) Epilepsy (HCC) sz approx 20 years ago History of gout Hypertension Mixed hyperlipidemia Prostate cancer (HCC) s/p seed therapy PHYSICAL EXAMINATION BP 103/62 Pulse 79 Temp 37.3 C (99.2 F) (Temporal) SpO2 96% General: Alert, well developed, well nourished, no distress, pleasant and cooperative. Heart: Regular rate and rhythm. Normal S1 and S2. No murmurs, rubs, or gallops. Lungs: Clear to auscultation bilaterally. No respiratory distress. No wheezes, rales, or rhonchi. Abdomen: Soft, non-tender, no distention. Extremities: Feet/ankles without edema, posterior tibial pulses full and symmetrical. Data Reviewed Component Latest Ref Rng & Units 03/16/2022 06/29/2022 Glucose 74 - 99 mg/dL 118 (H) BUN 9 - 24 mg/dL 20 Creatinine 0.73 - 1.22 mg/dL 0.87 Sodium 136 - 144 mmol/L 139 Potassium 3.7 - 5.1 mmol/L 4.3 Chloride 97 - 105 mmol/L 101 CO2 22 - 30 mmol/L 30 Anion Gap 9 - 18 mmol/L 8 (L) Calcium 8.5 - 10.2 mg/dL 9.7 eGFR >=60 mL/min/1.73m 84 Hemoglobin A1C 4.3 - 5.6 % 5.7 (H) Estimated Average Glucose mg/dL 117 Hemoglobin A1C (POCT) 4.2 - 5.6 % 5.8 Assessment/Plan (I10) Primary hypertension (primary encounter diagnosis) Comment: Well controlled and stable. Plan: Continue with current medications/regime. Discussed importance of salt restriction. (M54.42, M54.41, G89.29) Chronic bilateral low back pain with bilateral sciatica Comment: The patient reports experiencing lower back pain that radiates down his legs. Plan: Continue with current medications/regime. He is to see pain mgt. Try higher dose of the gabapentin (E11.9, Z79.4) Type 2 diabetes mellitus without complication, with long-term current use of insulin(HCC) Comment: Controlled and stable on current regime. Plan: Sitagliptin phosphate (JANUVIA) 100 mg tablet. Continue with current medications/regime. Counseled on importance of following a low sugar/carb diet, regular exercise and weight loss (E78.2) Hyperlipidemia, mixed Comment: Controlled and stable on current regime. Plan: Continue with current medications/regime. Follow a low fat, low cholesterol, Mediterranean diet rich in vegetables, fruits, whole grains with at least 2 servings of omega 3 fatty acids per week. Avoid simple sugars and excessive sweets. (C61) Prostate cancer (HCC) Comment: The patient requests his PSA to be tested based on his medical history. He is s/p radiotherapy seed implant. Plan: PSA/PROSTSPECAG DIAG (G40.249) Nonintractable epilepsy without status epilepticus, unspecified epilepsy type (HCC) Comment: The patient reports not having any seizure-like activity for over 25 years. He is taking levetiracetam (Keppra). Plan: LEVETIRACETAM. Continue with current medications/regime. (M25.512) Acute pain of left shoulder (M25.512, G89.29) Chronic left shoulder pain Comment: The patient reports having pain in his left shoulder that is effecting his range of movement and quality of life for about 2 years now. Plan: CONSULT TO ORTHOPAEDICS, XR SHOULDER LIMITED 2V AP/TRUE AP LEFT Requested Prescriptions Signed Prescriptions Disp Refills SITagliptin phosphate (JANUVIA) 100 mg tablet 90 tablet 1 Sig: Take 1 tablet by mouth once daily. gabapentin (NEURONTIN) 100 mg capsule 60 capsule 5 Sig: Take 1 capsule by mouth twice daily for 180 days. mirtazapine (REMERON) 15 mg tablet 60 tablet 2 Sig: Take 1 tablet by mouth daily at bedtime. RTO: Follow-up in 6 months to a year. Scribe Attestation: By signing my name below, IEulalia, attest that this documentation has been prepared under the direction and in the presence of Saulo Schultz M.D. Electronically Signed: Janice Blair. July 26, 2022 11:18 AM Provider Attestation: Keyla Gee MD, personally performed the services described in this documentation. All medical record entries made by the scribe were at my direction and in my presence. I have reviewed the chart and discharge instructions (if applicable) and agree that the record reflects my personal performance and is accurate and complete. Electronically Signed: Keyla Schultz MD July 26, 2022 3:23 PM documented in this encounterChillicothe Va Medical Center12-20-2022 Miscellaneous Notes* Telephone Encounter - Keyla Schultz MD - 07/06/2022 2:25 PM EST The following approved medication requests have been transmitted electronically. Requested Prescriptions Signed Prescriptions Disp Refills tamsulosin (FLOMAX) 0.4 mg 90 capsule 1 Sig: Take 1 capsule by mouth once daily. not taking Authorizing Provider: KEYLA SCHULTZ MD * Telephone Encounter - Antoinette Grider - 07/06/2022 12:08 PM EST Patient has been identified by name and date of : Yes Requested Prescriptions Pending Prescriptions Disp Refills tamsulosin (FLOMAX) 0.4 mg Sig: Take 1 capsule by mouth once daily. not taking RX INSTRUCTIONS: Patient aware RX will be sent to pharmacy. No need to notify patient. Antoinette Grider documented in this encounterChillicothe Va [facility] Center11-29-2022 Miscellaneous Notes* Telephone Encounter - Keily Rios - 06/15/2022 5:37 PM EST 1st attempt to reach Lino, [employer] technologymail box is not accepting messages at this time. If Lino returns the call please assist him in scheduling a visit with Dr. Schultz for as soon as he can come in for routine health and medication RX review. Thank you, Keily Rios * Telephone Encounter - Keyla Schultz MD - 06/11/2022 1:49 PM EST Due for visit and lab Refill on 06/10/22 BASIC METABOLIC PNL HGB A1C Ok 1 fill The following approved medication requests have been transmitted electronically. Requested Prescriptions Signed Prescriptions Disp Refills gabapentin (NEURONTIN) 100 mg capsule 30 capsule 0 Sig: take 1 capsule by mouth daily at bedtime Authorizing Provider: KEYLA SCHULTZ MD * Telephone Encounter - Delia Chaves LPN - 06/11/2022 11:42 AM EST Pharmacy verified in [facility] Patient has been identified by name and date of : Yes Patient aware RX will be sent to pharmacy. No need to notify patient. Patient phones for refill(s): Requested Prescriptions Pending Prescriptions Disp Refills gabapentin (NEURONTIN) 100 mg capsule [Pharmacy Med Name: GABAPENTIN 100 MG CAPSULE] 30 capsule 2 Sig: take 1 capsule by mouth daily at bedtime Date of last office visit : 12/08/2021 Date of next office visit : Visit date not found Last 2 Encounter Wt Readings: Date: Wt: 03/16/2022 78.9 kg (174 lb) 12/08/2021 77.1 kg (170 lb) Not applicable Please advise. Delia Chaves LPN documented in this encounterChillicothe [facility] Medical Center09-07-2022 Miscellaneous Notes* Telephone Encounter - Keyla Schultz MD - 03/24/2022 3:43 PM EDT The following approved medication requests have been transmitted electronically. Requested Prescriptions Signed Prescriptions Disp Refills levETIRAcetam (KEPPRA) 500 mg tablet 180 tablet 1 Sig: Take 1 tablet by mouth twice daily. Authorizing Provider: KEYLA SCHULTZ MD * Telephone Encounter - Stephen Berry - 03/24/2022 3:31 PM EDT Pharmacy verified in [facility] Patient has been identified by name and date of : Yes Patient aware RX will be sent to pharmacy. No need to notify patient. Pharmacy phones for refill(s): Requested Prescriptions Pending Prescriptions Disp Refills levETIRAcetam (KEPPRA) 500 mg tablet 90 tablet 0 Sig: Take 1 tablet by mouth twice daily for 90 doses. Date of last office visit : 12/08/2021 Date of next office visit : Visit date not found Last 2 Encounter Wt Readings: Date: Wt: 03/16/2022 78.9 kg (174 lb) 12/08/2021 77.1 kg (170 lb) Not applicable Please advise. Stephen Berry documented in this encounterChillicothe Va Medical Center08-30-2022 Instructions* Patient Instructions* Vu Mcelroy MD - 03/16/2022 10:29 AM EDT - Continue Januvia 100 mg daily - Lower the lantus insulin to 18 units once a day in the morning If your overnight or morning blood sugar is ever lower than 90, please decrease your lantus insulinby 1 unit permanently, and repeat as needed If your morning blood sugar is higher than 140 for 3 days in a row, please increase your lantus insulin by 1 unit permanently, and repeat as needed - See the diabetes nurse in 3 months and see me in 6 months documented in this encounterChillicothe Va [facility] Center08-30-2022 History of Present illness Narrative* Vu Mcelroy MD - 03/16/2022 10:20 AM EDT ENDOCRINOLOGY CLINIC NOTE Mr. Wheeler is a pleasant 86 year old male with recent diagnosis of T2DM, HTN, dyslipidemia and epilepsy presented for follow-up. HPI He was admitted to the hospital on 10/2021 with DKA, when his glucose was 622, bicarb 21, AG 18, andBHB > 4.5. He was discharged on insulin He has history of prediabetes. He was prescribed metformin in the past but he could not tolerate itdue to significant diarrhea. On his previous visit, we checked his T1DM antibodies and they were negative. His C-peptide was 1.2with a glucose of 126. A1c: 08/27/2020 14:00 10/26/2021 03:57 Hemoglobin A1C 11.3 (H) Hemoglobin A1C (POCT) 6.3 Current regimen: Lantus 21 units in the morning Januvia 100 mg Home glucose monitoring: They check twice a day before breakfast (80-130s)and at bedtime 90-140s Hypoglycemia: None Diet: Breakfast and supper Complications: Retinopathy: no recent eye exam Nephropathy: GFR 95 in 10/2021 Neuropathy: he complains of jerky movements in his legs CVS: lipid profile 10/2021: Cholesterol 105, LDL 29, HDL 39, TG 183 on rosuvastatin 10 mg BP: 117/63 PAST MEDICAL HISTORY Diagnosis Date Chronic pain Diabetes (HCC) Epilepsy (HCC) sz approx 20 years ago History of gout Hypertension Mixed hyperlipidemia Prostate cancer (HCC) s/p seed therapy PAST SURGICAL HISTORY Procedure Laterality Date BACK SURGERY HX 4 back surgeries PAST SURGICAL HISTORY OF testicular surgery FAMILY HISTORY Problem Relation Age of Onset other (SBO) Mother Tuberculosis Father Social History Tobacco Use Smoking status: Never Smokeless tobacco: Never Substance Use Topics Alcohol use: Not Currently Comment: hasn't drank for 35 years, was a heavy drinker Drug use: Never (Not in a hospital admission) Allergies As of Date: 03/16/2022 Allergen Noted Reaction DILAUDID [HYDROMORPHONE (BULK)] 03/08/2017 Mental Status Change PENICILLIN 01/14/2017 Unknown TORADOL [KETOROLAC] 01/14/2017 Itching Fully Assessed 01/03/2022 Current Outpatient Medications Medication Sig Dispense Refill hydrOXYzine pamoate (VISTARIL) 25 mg capsule Take 1 capsule by mouth at bedtime as needed (insomnia). 60 capsule 2 gabapentin (NEURONTIN) 100 mg capsule take 1 capsule by mouth daily at bedtime 30 capsule 2 insulin glargine (LANTUS SOLOSTAR U-100 INSULIN) 100 unit/mL (3 mL) Inject 21 Units subcutaneously every morning. 5 Pen 3 SITagliptin (JANUVIA) 100 mg tablet Take 1 tablet by mouth once daily. 90 tablet 1 flash glucose scanning reader ([employer] NICCI 2 READER) 1 Each every year. To monitor blood sugar continuously. E11.65. patient on insulin therapy 1 Each 0 Insulin [place], Disposable, (PEN NEEDLE) 32 gauge x 5/32 Use to inject insulin twice daily. 100 Each 3 oxyCODONE myristate (XTAMPZA ER) 9 mg CSpT Take 9 mg by mouth twice daily. (Patient not taking: Reported on 12/08/2021) carisoprodol (SOMA) 350 mg tablet Take 350 mg by mouth daily at bedtime. atenolol (TENORMIN) 50 mg tablet Take 0.5 tablets by mouth once daily. Insulin [place], Disposable, (PEN NEEDLE) 32 gauge x 5/32 Use to inject insulin up to 8 times per day. 100 Each 5 Blood-Glucose Meter 1 Device three times daily. Test Three times a day. 1 Each 0 blood sugar diagnostic test strip Use with blood glucose test 3 times daily. 300 Strip 5 Lancets lancets Use with blood glucose test 3 times daily. 300 Each 5 alcohol swabs Use with blood glucose test 3 times daily. 300 Each 5 glucose 4 gram chewable tablet Take 4 tablets by mouth as needed for low blood sugar. 10 tablet 5 tamsulosin (FLOMAX) 0.4 mg Take 0.4 mg by mouth once daily. not taking (Patient not taking: Reported on 12/08/2021 ) levETIRAcetam (KEPPRA) 500 mg tablet Take 500 mg by mouth twice daily. allopurinol (ZYLOPRIM) 300 mg tablet Take 300 mg by mouth once daily. rosuvastatin (CRESTOR) 10 mg tablet Take 10 mg by mouth once daily. No current facility-administered medications for this visit. COMPLETE REVIEW OF SYSTEMS: 10 point review of systems was negative other than what is mentioned in the H&P PHYSICAL EXAM: 03/16/22 1016 BP: 117/63 Pulse: 75 SpO2: 100% Weight: 78.9 kg (174 lb) General: NAD, alert and cooperative Psych: Normal affect Previous exam: HEENT: EOMI, no proptosis/stare. Neck: supple with full ROM. Cardiovascular: RRR, +S1 and S2 Lungs: Clear to auscultation bilaterally Abdomen: soft, non-tender, non-distended, +BS Extremities: Bilateral lower extremity edema +1 Neuro: No tremor of outstretched hands noted. Deep tendon reflexes are normal with a normal relaxation phase. Foot exam 11/24/2021: No wounds or ulcers. Good pedal pulses bilaterally. Absent vibration sensationon the right and decreased on the left. Absent monofilament sensation bilaterally Labs: 10/27/2021 07:53 Sodium 135 (L) Potassium 5.6 (H) Chloride 101 CO2 26 BUN 10 Creatinine 0.68 (L) Glucose 324 (H) Calcium 9.0 Magnesium 1.7 Phosphorus 2.7 Anion Gap 8 (L) eGFR 91 10/26/2021 03:57 Total Cholesterol, Nonfasting 105 Triglycerides, Nonfasting 183 (H) HDL Cholesterol, Nonfasting 39 (L) LDL Cholesterol, Nonfasting 29 Assessment and Recommendations: Mr. Wheeler is a pleasant 86-year-old man presented with his for follow-up of diabetes He hadhistory of prediabetes, and recently developed DKA and was discharged on insulin. He had negative T1DM antibodies, but his C-peptide was in the lower half of normal with a concomitant glucose of 126,suggesting possible insufficient endogenous insulin production His diabetes is currently under good control based on the A1c and the reviewed glucose data on his log. He has had several episodes of morning blood sugar in the 80s. Therefore, I asked him to lower the Lantus to 18 units once a day. Instructions on how to further adjust the Lantus were discussed and provided in the after visit summary. We will continue with Januvia 100 mg daily We will check his C-peptide again in 3-6 months. If the C-peptide is in the upper half of normal, our goal would be to try to control his diabetes without using insulin. Considerations would be to add a low-dose sulfonylurea, or switch his regimen to a GLP-1 agonist. His insurance did not approve CGM coverage Some of the above has been copied from prior documentation on 11/24/2021 but raza elements reviewed, confirmed, and/or updated by me (Vu Mcelroy MD) on 03/16/2022 I spent a total of 30 minutes on the date of the service which included preparing to see the patient, [id number] patient care, completing clinical documentation, obtaining and/or reviewing separately obtained history, counseling and educating the patient/family/caregiver, and ordering medications, tests, or procedures. Vu Mcelroy MD documented in this encounterChillic[facility]08-25-2022 Miscellaneous Notes* Telephone Encounter - Yennifer Pelaez MA - 03/11/2022 11:12 AM EDT Patient informed * Addendum Note - Keyla Schultz MD - 03/11/2022 9:57 AM EDTAddended by: SAULO SCHULTZ on: 03/11/2022 09:57 AM Modules accepted: Orders * Telephone Encounter - Keyla Schultz MD - 03/11/2022 9:57 AM EDT The following approved medication requests have been transmitted electronically. Requested Prescriptions Signed Prescriptions Disp Refills hydrOXYzine pamoate (VISTARIL) 25 mg capsule 60 capsule 2 Sig: Take 1 capsule by mouth at bedtime as needed (insomnia). Authorizing Provider: KEYLA SCHULTZ MD * Telephone Encounter - Sadia Rodriguezbanner - 03/10/2022 3:32 PM EDT Patient unable to sleep at night and is calling to ask if Dr. Schultz will call in RX for insomnia Hydroxyzine renay 25 mg capsule taking two capsules at bed time. He was given a RX from the [facility] ER in December of this year. Please call to advise if provider agrees to this RX and if approved please send to [facility] is his preferred pharmacy. Please call , Radha to advise at [phone] which is home phone or cell [phone]. Bothnumbers have been verified. Thank you Electronically signed by Sadia Givens [facility] at 03/10/2022 3:41 PM EDT documented in this encounterChillicothe [facility] Center08-18-2022 Miscellaneous Notes* Telephone Encounter - Yennifer Pelaez MA - 03/04/2022 9:51 AM EDT Last appointment: 08-27-20 Next appointment: na Pharmacy verified in [facility]. Refill(s) requested: Requested Prescriptions Pending Prescriptions Disp Refills gabapentin (NEURONTIN) 100 mg capsule [Pharmacy Med Name: GABAPENTIN 100 MG CAPSULE] 30 capsule 2 Sig: take 1 capsule by mouth daily at bedtime Order(s) pended. Please advise. Yennifer Pelaez MA, [facility] documented in this encounterChillicothe Va [facility] Center06-20-2022 Miscellaneous Notes* Telephone Encounter - Stephen Berry - 01/04/2022 3:59 PM EDT Received ED summary from [facility]. Placed in provider's inbox for review. Route to YELENA tan. documented in this encounterChillicothe [facility] Center06-08-2022 Miscellaneous Notes* Telephone Encounter - Reny Vela RN - 12/23/2021 4:28 PM EDT Vitals (see flow sheet for details): stable SN findings today: Pt presents today with his present he uses his walker for ambulation. he has been given his discharge instructions and expresses understanding of todays discharge he is in agreement with todays discharge See intervention summary for education details and any skills performed. Specific SN discharge instructions: follow up with MD for future questions or concerns Patient encouraged to take all medication as ordered, eat a well-balanced diet and follow up with all physician appointments. NOMNC: signed and present on EMR Discharged due to no further SN skilled need. Patient discharged from Home Care to: self-care and family support RECOMMENDATION: Additional follow ups recommended: None Patient to follow up with Dr. Schultz for additional medical questions/concerns. documented in this encounterChillicothe [facility] Center06-08-2022 Miscellaneous Notes* SN Agency DC - Reny Vela RN - 12/23/2021 1:38 PM EDT SITUATION: [facility] agency discharge visit completed today. spouse also present during today's visit. patient and caregiver reports the following: Allergies--reviewed Medications--full medication reconciliation completed Falls--None BACKGROUND: Reason for Home Care: Type 2 diabetes mellitus with ketoacidosis without coma Epilepsy, unspecified, not intractable, without status epilepticus Malignant neoplasm of prostate ASSESSMENT: SN greeted at door by caregiver. Upon entrance patient found in chair Patient appears in no acute distress. Vitals (see flow sheet for details): stable SN findings today: Pt presents today with his present he uses his walker for ambulation. he has been given his discharge instructions and expresses understanding of todays discharge he is in agreement with todays discharge See intervention summary for education details and any skills performed. Specific SN discharge instructions: follow up with MD for future questions or concerns Patient encouraged to take all medication as ordered, eat a well-balanced diet and follow up with all physician appointments. NOMNC: signed and present on EMR Discharged due to no further SN skilled need. Patient discharged from Home Care to: self-care and family support RECOMMENDATION: Additional follow ups recommended: None Patient to follow up with Dr. Schultz for additional medical questions/concerns. documented in this encounterChillicothe [facility] Center06-07-2022 Miscellaneous Notes* Telephone Encounter - Layla Thomson - 12/22/2021 1:47 PM EDT Pharmacy verified in [facility] Patient has been identified by name and date of : Yes Patient aware RX will be sent to pharmacy. No need to notify patient. Spouse phones for refill(s): Pending Prescriptions Disp Refills LANTUS SOLOSTAR U-100 INSULIN 100 UNIT/ML (3 ML) SUBCUTANEOUS PEN 5 Pen 0 Sig: Inject 21 Units subcutaneously every morning. LUH: No Date of last office visit : 11/24/2021 Date of next office visit : 02/26/2022 Last 2 Encounter Wt Readings: Date: Wt: 12/08/2021 77.1 kg (170 lb) 11/24/2021 80.6 kg (177 lb 9.6 oz) Diabetes: Hemoglobin A1C (%) Date Value 10/26/2021 11.3 Hemoglobin A1C (POCT) (%) Date Value 08/27/2020 6.3 Please advise. Layla Thomson documented in this encounterChillicothe [facility] Center06-06-2022 Miscellaneous Notes* PT DISCHARGE - Samantha Ventura, PT - 12/21/2021 12:15 PM EDT SITUATION:. 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 patient reports the following since the last homecare visit: medications/allergies--no changes, no fall. patient states i panel monitor do all the things i want to do BACKGROUND: chronic back pain Diagnoses (reason for Home Care): DM with ketoacidosis Weight Bearing/Precaution Changes: no changes ASSESSMENT: Focus of visit: reassessment Physical therapy discharged: goals partially achieved. Functional performance at discharge - bed mobility independent, transfers independent, ambulation independent and stairs supervision. Plan of care, goals, and discharge reviewed and agreed upon with patient and/or caregiver. RECOMMENDATION: Patient discharged from PT and is active with SN. Instructions to include:home exercise program as directed See intervention summary for intervention/education details. documented in this encounterChillicothe [facility] Center05-31-2022 Miscellaneous Notes* SN Routine - Kristine Fishman RN - 12/15/2021 12:41 PM EDT SITUATION: [facility] routine visit completed today. spouse also present during today's visit. patient reports the following: Allergies--reviewed Medications--reviewed current medications Falls--None BACKGROUND: Reason for Home Care: diabetic teaching ASSESSMENT: SN greeted at door by no one Upon entrance patient found on couch Patient appears in no acute distress. Patient/CG concerns verbalized today: Spouse announced upon SN arrival that she has tested positivefor COVID. She states that she was feeling more winded than usual and went to the Dr. She obtained COVID test kits from the pharmacy and hers is positive, She also tested the pt but said that his didnot turn as pink as hers did but she saved the test and SN notes 2 pink lines which according to the test kit, indicates a positive test. Pt does not have any symptoms. Vitals (see flow sheet for details): stable. Was not able to check temp, thermomter would not operate. SN findings today: Upon discovery of pt and spouse positive COVID tests, COVID precautions were initated. Both pt and spouse are wearing masks upon SN arrival. Infection control kit brought into the home and precautions used for this vs. Pt does not have any respiratory symptoms, lungs are clear, pulse os is a little less than usual for pt but he is also masked throughout today's vs.Blood sugars have been doing very well since starting the Juluvia. Typically 90-120 range fasting and 120-148 in the evenings. See intervention summary for education details. Patient demonstrated a need for further skilled SN services for chronic disease management & education. Current Discharge plan: self-care and family support RECOMMENDATION: Next visit to focus on (be specific): consider NOMNC, diabetic assessmentand instruction, follow upon any COVID related symptoms of patient. 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 patient reports the following since the last homecare visit: medications/allergies--no changes, no fall. patient reports no changes since last PT visit. BACKGROUND: Chronic back pain Diagnoses (reason for Home Care): DM with ketoacidosis Weight Bearing/Precaution Changes: no changes ASSESSMENT: Pt reports no increased pain during today's PT tx. Decreased assiatnce required for Gt ( Modified Indep ) and stair negotiation ( Supervision ). Focus of visit: Improving trunk/ LE strength and functional reserve. Plan of care, goals, and visit frequency reviewed and agreed upon with patient and/or caregiver. Current Discharge Plan: independent with home exercise program Anticipate discharge by: 12/24/21 RECOMMENDATION: Pt would cont to benefit from further PT tx to improve knee strength/ ROM and balancein order to improve mobility/ stability so pt can safely ambulate through out his home and in the community. Next visit to focus on: Improving trunk/ LE strength and functional reserve. See intervention summary for intervention/education details. documented in this encounterChillicothe [facility]05-24-2022 Miscellaneous Notes* SN Routine - Kristine Fishman RN - 12/08/2021 3:26 PM EDT SITUATION: [facility] routine visit completed today. spouse also present during today's visit. patient and caregiver reports the following: Allergies--reviewed Medications--reviewed current medications Falls--None BACKGROUND: Reason for Home Care: DM teaching ASSESSMENT: SN greeted at door by caregiver. Upon entrance patient found on couch. Patient appears in no acute distress. Patient/CG concerns verbalized today: pt verbalizes that he saw a new PCP today and was not happy that he did not prescribe something more for his pain. He verbalizes that he is going to continue with pain management. He did get a new script for gabapentin at bedtime. He verbalizes that he has taken this in the past without effectiveness. Vitals (see flow sheet for details): stable SN findings today: Pt is sitting up on couch. See above. SN encouraged pt to try the gabapentin at night. spouse reports that med changes were made by endocrinology. Blood sugars have been very good since the change. AM blood sugars have been upper 80's-low 100's. Evening blood sugars have been in the 130 range. Spouse had more questions about diet today and pt and spouse instructed and referred to the diabetic teaching booklets. 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 He has been taking the glucose control shakes. See intervention summary for education details. Patient demonstrated a need for further skilled SN services for chronic disease management & education. Current Discharge plan: family support RECOMMENDATION: Next visit to focus on (be specific): follow up on diabetic teaching. documented in this encounterChillicothe [facility]05-24-2022 History of Present illness Narrative* Keyla Schultz MD - 12/08/2021 11:00 AM EDT CHIEF COMPLAINT Patient presents with: ED Follow-up HISTORY OF PRESENT ILLNESS Lino Wheeler is a 86 year old male who presents here today for follow up ED visit for back pain. The patient is here today to establish care. Back pain Patient was seen at [facility] ED on 11/09/21. Per ED note: Nontoxic well-hydrated blood sugars in the 100s per EMS. He has pain with movement in the low backthat radiates into both lower extremities. He describes this is consistent with his chronic pain but exacerbated and does not have any pain medication currently at home. He does have pain management.No cauda equina symptoms no fever. He is diabetic elderly remote history of prostate cancer so we will do CT imaging today check lab work morphine given for pain which she has tolerated in the past. No lab changes patient urinated prior to coming to the emergency department he states he has no urgency or burning he was unable to provide a urine specimen this morning. His pain is improved CT showed no acute abnormalities he was able to be stood up at the bedside with assistance but able to put weight onto both lower extremities and feels like he is at his baseline as far as ability to move. He is walker dependent. Patient is currently prescribed Tylenol 3 for pain states it does not work sohe has not taken it for the past 4 days. states they will call pain management this morning I was in agreement with writing for a short course of hydrocodone for pain which she is taken in the past. He desires to get home at this point and is advised if he develops any other symptoms especially any fever or troubles controlling bowel or bladder that he return immediately. Patient says that the pain radiates down his legs. He says that the pain prevents him from sleeping at night. 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 Due for urine albumin Due for dilated retinal exam. Due for Shingrix series.duefor Due for COVID booster Labs reviewed. Past medical history, appointments, medications, allergies reviewed. REVIEW OF SYSTEMS Pertinent positives/ negatives: General: Feels well, no fever, no chills HEENT: No sinus congestion, earache, sore throat. Cardiac: No chest pain, palpitations Resp: No cough, wheeze, shortness of breath GI: No reflux symptoms, food intolerance, bowel changes. : No urinary frequency, dysuria. MS: +back pain PAST MEDICAL HISTORY PAST MEDICAL HISTORY Diagnosis Date Chronic pain Diabetes (HCC) Epilepsy (HCC) sz approx 20 years ago History of gout Hypertension Mixed hyperlipidemia Prostate cancer (HCC) s/p seed therapy PHYSICAL EXAMINATION BP 108/60 Pulse 80 Ht 175.3 cm (5' 9) Wt 77.1 kg (170 lb) SpO2 97% BMI 25.10 kg/m General: Alert, well developed, well nourished, no distress, pleasant and cooperative. Heart: Regular rate and rhythm. Normal S1 and S2. No murmurs, rubs, or gallops. Lungs: Clear to auscultation bilaterally. No respiratory distress. No wheezes, rales, or rhonchi. Abdomen: Soft, non-tender, no distention. Extremities: Feet/ankles without edema, posterior tibial pulses full and symmetrical. Data Reviewed 11/24/21 Glucose random- 126 high Insulinoma- within normal limits c-peptide- within normal limits Insulin antibody- within normal limits Islet cell- within normal limits Glutamic ac- within normal limits 11/09/21 CBC+DIFF- RBC (4.12 low) hemoglobin (12.8 low) BMP- creatinine (0.58 low) glucose (207 high) Assessment/Plan (E11.9, Z79.4) Type 2 diabetes mellitus without complication, with long-term current use of insulin(HCC) (primary encounter diagnosis) Comment: well controlled on current regimen Plan: continue to follow endocrinology (M51.36) DDD (degenerative disc disease), lumbar (M54.42, M54.41, G89.29) Chronic bilateral low back pain with bilateral sciatica Comment: patient was in ER for back pain Plan: Begin on gabapentin for back pain (E78.2) Hyperlipidemia, mixed Comment: well controlled Plan: continue on current regimen (Z87.898) History of seizures Comment: PMHx Plan: continue to monitor (I10) Essential hypertension Comment: blood pressure was well controlled in office Plan: continue on current regimen (M1A.9XX0) Chronic gout without tophus, unspecified cause, unspecified site Comment: well controlled Plan: continue on current regimen Signed Prescriptions Disp Refills gabapentin (NEURONTIN) 100 mg capsule 30 capsule 2 Sig: Take 1 capsule by mouth daily at bedtime for 90 days. RTO: 1 month Scribe Attestation: By signing my name below, I, Radha Bernardo, attest that this documentation has been prepared under the direction and in the presence of Saulo Schultz M.D. Electronically Signed: Janice Dwyer. December 08, 2021 8:03 AM Provider Attestation: I, Keyla Schultz MD, personally performed the services described in this documentation. All medical record entries made by the scribe were at my direction and in my presence. I have reviewed the chart and discharge instructions (if applicable) and agree that the record reflects my personal performance and is accurate and complete. Electronically Signed: Keyla Schultz MD. December 08, 2021 1:23 PM documented in this encounterChillicothe [facility]05-19-2022 Miscellaneous Notes* SN Routine - Luba Cruz RN - 12/03/2021 3:34 PM EDT SITUATION: [facility] routine visit completed today. spouse also present during today's visit. patient reports the following: Allergies--reviewed Medications--reviewed current medications and updated medication list: Januvia added Falls--None DME-Reviewed and added to chart BACKGROUND: Reason for Home Care: Type 2 diabetes mellitus with ketoacidosis without coma Epilepsy, unspecified, not intractable, without status epilepticus Malignant neoplasm of prostate ASSESSMENT: SN greeted at door by caregiver. Upon entrance patient found in chair Patient appears in no acute distress. Patient/CG concerns verbalized today: none Vitals (see flow sheet for details): stable SN findings today: No new or abnormal changes today. Patient lives in a single story home with wifeand dog. patient uses a walker to ambulate. Patient states he has pain in his legs and uses prescription pain medication- but it only helps some. Respirations clear and easy. Heart sounds regular. Bowel sounds in all quadrants. One of the patients insulins was discontinued and doctor placed patienton Hermilouvia instead- patient is happy with this because it is one less poke. Patient does not have any other questions or concerns at this time. Patient told to call office with any questions. See intervention summary for education details. Patient demonstrated a need for further skilled SN services for chronic disease management & education, medication education and safety. 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 patient reports the following since the last homecare visit: medications/allergies--no changes, no fall. patient reports:no changeas since last PT visit. BACKGROUND: DM, chronic back pain Diagnoses (reason for Home Care): DM with ketoacidosis with out coma Weight Bearing/Precaution Changes: no changes ASSESSMENT: Pt reports no increased pain during today's PT tx. Focus of visit: Improving trunk/ LE strength and functional reserve. Plan of care, goals, and visit frequency reviewed and agreed upon with patient and/or caregiver. Current Discharge Plan: independent with home exercise program Anticipate discharge by: 12/24/21 RECOMMENDATION: Pt would cont to benefit from further PT tx to improve LE/ trunk strength and balance in order to decrease assistance with transfers, walking, and stair negotiation. Next visit to focus on: Improving trunk/ LE strength and functional reserve. See intervention summary for intervention/education details. [facility] Miscellaneous Notes* Telephone Encounter - Akanksha Gorman RN - 12/01/2021 3:02 PM EDT Thank you. I spoke with her Message text Closed. * Telephone Encounter - Akanksha Gorman RN - 12/01/2021 11:17 AM EDT Patient's called and left a VM on nurses line, asking for recent lab results drawn on 11/24/2021. Please review and advise. She can be reached at [phone]. documented in this [facility]05-13-2022 Miscellaneous Notes* Telephone Encounter - Samantha Ventura, PT - 11/27/2021 5:16 PM EDT Continue home physical therapy POC 2w4 for there ex , gait, balance, transfer and stair training documented in this [facility]05-13-2022 Miscellaneous Notes* PT ROUTINE/REASSESSMENT/RECERT/CASE MGMT - Samantha Ventura PT - 11/27/2021 10:31 AM EDT SITUATION: PT reassessment visit. 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 patient and caregiver reports the following since the last homecare visit: medications/allergies--decrease atenolol to 1/2 tab ,no fall. patient reports i'm getting stronger BACKGROUND: Diagnoses (reason for Home Care): DM 2 with ketoacidosis with out coma PMH:Chronic back pain and epilepsy Weight Bearing/Precaution Changes: no changes ASSESSMENT: Focus of visit -reassessment, pt making excellent functional progress and has met all of his goals set at the initial ie. Has good potential for further improvement . Established new goals and continuing orders Plan of care, goals, and visit frequency reviewed and agreed upon with patient and/or caregiver. Current Discharge Plan: family support Anticipate discharge by 12/28/21 RECOMMENDATION: Next visit to focus on increasing LE strength and functional ROM of the hips to facilitate tub and car transfers See intervention summary for intervention/education details. [facility] this [facility] Instructions* Patient Instructions* Vu Mcelroy MD - 11/24/2021 3:29 PM EDT - Continue with Lantus 21 units once a day - Continue with Humalog 6 units before supper - Target morning blood sugar fasting 100-150. If your overnight or morning blood sugar is ever lower than 100, please decrease your lantus insulin by 1 unit permanently, and repeat as needed If your morning blood sugar is higher than 150 for 3 days in a row, please increase your lantus insulin by 1 unit permanently, and repeat as needed - I prescribed the freestyle nicci 2 continuous meter. Let us know if there are issues with the prescription - Lower the atenolol to 25 mg once a day documented in this [facility] History of Present illness Narrative* Vu Mcelroy MD - 11/24/2021 3:00 PM EDT ENDOCRINOLOGY CLINIC NOTE Mr. Wheeler is a pleasant 86 year old male with recent diagnosis of diabetes, HTN, dyslipidemia and epilepsy presented for post hospital follow-up. He presented with his HPI He was admitted to the hospital on 10/2021 with DKA, when his glucose was 622, bicarb 21, AG 18, andBHB > 4.5. He was discharged on insulin He has history of prediabetes. He was prescribed metformin in the past but he could not tolerate itdue to significant diarrhea. A1c: 08/27/2020 14:00 10/26/2021 03:57 Hemoglobin A1C 11.3 (H) Hemoglobin A1C (POCT) 6.3 Current regimen: Lantus 21 units in the morning Humalog 6 units before dinner Home glucose monitoring: His checks his glucose level 3 times a day before breakfast, before supper and at bedtime. Theglucose log was reviewed. AM mid 100s (one reading 87) Predinner: mid 100s, few readings in the 200s Bedtime mid 100s-200s. Hypoglycemia: None Diet: Breakfast and supper Complications: Retinopathy: no recent eye exam Nephropathy: GFR 95 in 10/2021 Neuropathy: he complains of jerky movements in his legs CVS: lipid profile 10/2021: Cholesterol 105, LDL 29, HDL 39, TG 183 on rosuvastatin 10 mg BP: 107/57 PAST MEDICAL HISTORY Diagnosis Date Chronic pain Diabetes (HCC) Epilepsy (HCC) sz approx 20 years ago History of gout Hypertension Mixed hyperlipidemia Prostate cancer (HCC) s/p seed therapy PAST SURGICAL HISTORY Procedure Laterality Date BACK SURGERY HX 4 back surgeries PAST SURGICAL HISTORY OF testicular surgery FAMILY HISTORY Problem Relation Age of Onset other (SBO) Mother Tuberculosis Father Social History Tobacco Use Smoking status: Never Smoker Smokeless tobacco: Never Used Substance Use Topics Alcohol use: Not Currently Comment: hasn't drank for 35 years, was a heavy drinker Drug use: Never (Not in a hospital admission) Allergies As of Date: 11/24/2021 Allergen Noted Reaction DILAUDID [HYDROMORPHONE (BULK)] 03/08/2017 Mental Status Change PENICILLIN 01/14/2017 Unknown TORADOL [KETOROLAC] 01/14/2017 Itching Fully Assessed 11/18/2021 Current Outpatient Medications Medication Sig Dispense Refill oxyCODONE myristate (XTAMPZA ER) 9 mg CSpT Take 9 mg by mouth twice daily. carisoprodol (SOMA) 350 mg tablet Take 350 mg by mouth daily at bedtime. atenolol (TENORMIN) 50 mg tablet Take 0.5 tablets by mouth once daily. insulin glargine (LANTUS SOLOSTAR U-100 INSULIN) 100 unit/mL (3 mL) Inject 21 Units subcutaneously every morning. 5 Pen 0 Insulin [place], Disposable, (PEN NEEDLE) 32 gauge x 5/32 Use to inject insulin twice daily. 100 Each 3 insulin lispro (HUMALOG KWIKPEN) 100 unit/mL Inject 6 Units subcutaneously daily with dinner. 15 mL0 Insulin [place], Disposable, (PEN NEEDLE) 32 gauge x 5/32 Use to inject insulin up to 8 times per day. 100 Each 5 Blood-Glucose Meter 1 Device three times daily. Test Three times a day. 1 Each 0 blood sugar diagnostic test strip Use with blood glucose test 3 times daily. 300 Strip 5 Lancets lancets Use with blood glucose test 3 times daily. 300 Each 5 alcohol swabs Use with blood glucose test 3 times daily. 300 Each 5 glucose 4 gram chewable tablet Take 4 tablets by mouth as needed for low blood sugar. 10 tablet 5 tamsulosin (FLOMAX) 0.4 mg Take 0.4 mg by mouth once daily. not taking levETIRAcetam (KEPPRA) 500 mg tablet Take 500 mg by mouth twice daily. allopurinol (ZYLOPRIM) 300 mg tablet Take 300 mg by mouth once daily. rosuvastatin (CRESTOR) 10 mg tablet Take 10 mg by mouth once daily. No current facility-administered medications for this visit. COMPLETE REVIEW OF SYSTEMS: 10 point review of systems was negative other than what is mentioned in the H&P PHYSICAL EXAM: 11/24/21 1447 BP: 107/57 BP Site: Right Arm BP Position: Sitting BP Cuff Size: Regular Adult Pulse: 65 SpO2: 95% Weight: 80.6 kg (177 lb 9.6 oz) General: NAD, alert and cooperative HEENT: EOMI, no proptosis/stare. Neck: supple with full ROM. Cardiovascular: RRR, +S1 and S2 Lungs: Clear to auscultation bilaterally Abdomen: soft, non-tender, non-distended, +BS Extremities: Bilateral lower extremity edema +1 Neuro: No tremor of outstretched hands noted. Deep tendon reflexes are normal with a normal relaxation phase. Psych: Normal affect Foot exam 11/24/2021: No wounds or ulcers. Good pedal pulses bilaterally. Absent vibration sensationon the right and decreased on the left. Absent monofilament sensation bilaterally Labs: 10/27/2021 07:53 Sodium 135 (L) Potassium 5.6 (H) Chloride 101 CO2 26 BUN 10 Creatinine 0.68 (L) Glucose 324 (H) Calcium 9.0 Magnesium 1.7 Phosphorus 2.7 Anion Gap 8 (L) eGFR 91 10/26/2021 03:57 Total Cholesterol, Nonfasting 105 Triglycerides, Nonfasting 183 (H) HDL Cholesterol, Nonfasting 39 (L) LDL Cholesterol, Nonfasting 29 Assessment and Recommendations: Mr. Wheeler is a pleasant 86-year-old man presented with his for post hospital follow-up of diabetes He has history of prediabetes, and recently developed DKA and was discharged on insulin. Hisdiabetes is under good overall control based on the reviewed glucose data. Our goal is an A1c of 7.5-8% in his case, to reduce the risks of diabetes related complications, while not significantly increasing the risk of hypoglycemia. We will continue with Lantus 21 units once a day and Humalog 6 units before supper. We discussed how to adjust the Lantus doses, and instructions were provided in the after visit summary. I will check his T1DM antibodies and a C- peptide to evaluate his endogenous insulin reserve. Our goal would be to ideally controlled his diabetes with the minimal amount of insulin if possible. We discussed the benefits of using the CGM and they are interested. I prescribed the freestyle nicci. Lastly, his BP is on the lower side and I asked him to lower the atenolol to 25 mg daily I spent a total of 60 minutes on the date of the service which included preparing to see the patient, [id number] patient care, completing clinical documentation, obtaining and/or reviewing separately obtained history, performing a medically appropriate examination, counseling and educating the pat ient/family/caregiver and ordering medications, tests, or procedures. Vu Mcelroy MD documented in this [facility] Miscellaneous Notes* HH SN Routine - Kristine Fishman RN - 11/24/2021 12:25 PM EDT SITUATION: Senior Care routine visit completed today. spouse also present during today's visit. patient reports the following: Allergies--reviewed Medications--reviewed current medications Falls--None BACKGROUND: Reason for Home Care: diabetic assessment and teaching. ASSESSMENT: SN greeted at door by patient utilizing walker and demonstrates stable gait. Patient appears in no acute distress. Patient/CG concerns verbalized today: pt verbalizes that he continues to have the chronic pain. Vitals (see flow sheet for details): stable SN findings today: Pt is up sitting at dining room table. He states that his pain is unchanged but SN has noted that he has been out of bed for the last 2 SN vs and today was laughing and joking at times. He feels that therapy is going well. Blood sugars have primarily been in the low to mid 100's but he has had 2 readings in the low to mid 200 range. Overall, diabetic managment appears to be fairly good. SN reviewed protein and low starchy vegie choices again today with spouse using the diabetic diet booklet. 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 See intervention summary for education details. Patient demonstrated a need for further skilled SN services for chronic disease management & education, medication education and safety. Current Discharge plan: self-care and family support RECOMMENDATION: Next visit to focus on (be specific): check on any med changes related to endocrinology appt, pt has an appt to establish care with a new PCP on 11/30. 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 patient and caregiver reports the following since the last homecare visit: medications/allergies--no changes, no fall. patient states Mendoza I'm getting a lot stronger I can go up the steps a lot better.. BACKGROUND: Chronic back pain and epilepsy Diagnoses (reason for Home Care): DM 2 with ketoacidosis with out coma Weight Bearing/Precaution Changes: no changes ASSESSMENT: Pt reports no increased pain during today's PT tx. Pt requires decreased assitance for transfers, Gt, and stair negotiation. Focus of visit: Improving trunk/ LE strength and functional reserve. Plan of care, goals, and visit frequency reviewed and agreed upon with patient and/or caregiver. Current Discharge Plan: family support Anticipate discharge by 11/27/21 RECOMMENDATION: Pt is scheduled for PT re-eval on 11/27/21 Pt status and D/C plans discussed with pt, , and PT ( Christiane ). See intervention summary for intervention/education details. documented in this [facility]Ch[facility] Miscellaneous Notes* Telephone Encounter - Satish Dillard RN - 11/19/2021 7:[address] Villeda: Home Health Aide services have been discontinued as of this time after discussion/care coordinationwith Josefina Bergman/OT has discharged patient from OT home services with improvement and OT goals meton 11/16/21. Home Health Aide services will be discontinued at this time as there is no need and patient does not want a Home Health Aide. PT/SN remain active with patient's home health care at this time. Thank you for your review of this information. Satish Dillard RN-[facility]. documented in this encounterCh[facility]05-[facility]-2022 Miscellaneous Notes* SN Routine - Kristine Fishman RN - 11/18/2021 10:36 AM EDT SITUATION: Senior Care routine visit completed today. spouse also present during today's visit. patient reports the following: Allergies--reviewed Medications--reviewed current medications Falls--None BACKGROUND: Reason for Home Care: new to insulin, diabetic teaching. ASSESSMENT: SN greeted at door by caregiver. Upon entrance patient found ambulating to kitchen from bedroom Patient appears in no acute distress. Patient/CG concerns verbalized today: Pt reports that he has not noticed any difference in his painlevel since starting the new med. Vitals (see flow sheet for details): stable SN findings today: Pt is ambulating more and not spending as much time in bed. He agrees that therapy has helped him to feel more confident with activities, he is not as afraid of falling and cg feels more confident with his ability to be home alone for short periods. Her therapy has been put on hold for 2 weeks. Pt's blood sugars have been less than 150, no episodes of low blood sugars and pt's diet has been consistent, he does not eat a lot of protein he prefers more vegetables but cg does provide eggs and light, easy to chew proteins. Pt also taking glucose control Boost to supplement protein. Overall, pt appears to have adjusted well to new diabetic regimen. He is scheduled to see the en docrinologist on 11/23, will plan next SN vs for after that date to follow up on any med changes. See intervention summary for education details. Patient demonstrated a need for further skilled SN services for chronic disease management & education, medication education and safety. Current Discharge plan: self-care and family support RECOMMENDATION: Next visit to focus on (be specific): diabetic management, any med changes from 11/23 endocrinology appt. documented in this [facility]Ch[facility] Miscellaneous Notes* HH PT ROUTINE/REASSESSMENT/RECERT/CASE MGMT - Mendoza Watts, PRINTING PRESS OPERATOR APPRENTICE - 11/17/2021 4:01 PM EDT SITUATION:PRINTING PRESS OPERATOR APPRENTICE routine visit. 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 patient and caregiver reports the following since the last homecare visit: medications/allergies--no changes, no fall. Patient states My back is bad but I'm dealing with it and I'm not getting any more surgeries. BACKGROUND: Spinal stenosis, chronic back pain. Diagnoses (reason for Home Care): DM with ketoacidosis with out coma. Weight Bearing/Precaution Changes: no changes ASSESSMENT: Pt reports no increased pain during today's PT tx. Pt and report pt is compliant with staying OOB during the day and walking program. Focus of visit: Stair training. Plan of care, goals, and visit frequency reviewed and agreed upon with patient and/or caregiver. Current Discharge Plan: independent with home exercise program Anticipate discharge by: 11/26/21 RECOMMENDATION: Pt would cont to benefit from further PT tx to improve LE/ trunk strength and balance in order to decrease assistance with transfers, walking, and stair negotiation. Next visit to focus on: Stair negotiation and Improve knee strength and ROM. See intervention summary for intervention/education details. documented in this [facility]Ch[facility]05[facility]-2022 Miscellaneous Notes* CARE COORDINATION - ALEXIA Valadez - 11/16/2021 11:35 AM EDT OT contacted Dr. Villeda's office on 11/16/21 for the following: Informed of OT Discipline Dischargetoday. New orders: None Follow up needed: None * OT DISCHARGE VISIT NOTE - ALEXIA Valadez - 11/16/2021 11:35 AM EDT SITUATION: Patient walking through house with walker when OT arrived. Just patient present during today's visit; spouse arrived home from doctor appt. just near end of session. Patient reports the following since the last homecare visit: medications/allergies--no changes, no fall. Patient reports no new problems. BACKGROUND: Diagnoses or reason for Home Care: Recent hospitalization d/t DKA. Past medical history: HTN, Chronic back pain, prostate CA, reports has Carpal Tunnel Syndrome bad in both hands--makes it hard to hold onto things. Weight Bearing or Precautions: Fall Precautions. ASSESSMENT: Focus of visit: Final instructions for ADLs and Transfers; OT Discipline Discharge. Occupational therapy discharged: goals achieved. Functional Performance at discharge: Feeding independence, Grooming independence, Upper body dressing independence, Lower body dressing independence, Bathing minimum assistance for washing his back. Presently sponge bathing as patient does not want to address shower transfers further until his legsare stronger. Toileting independence and Toilet Transferring independence with walker. [place]aira ADL Index score increased to 85/100. Plan of care, goals, and discharge reviewed and agreed upon with patient/caregiver. RECOMMENDATION: Instructions include: discharged from OT and is active with SN and PT. Instructed to seek medical attention if he falls, has a fever over 100* or his sugars get too high. Post dc recommendations: continue to have assistance with Bathing, Tub Transfers and IADLs. See intervention summary for intervention/education details. documented in this [facility]Ch[facility]04[facility]29-2022 Miscellaneous Notes* SN Routine - Kristine Fishman RN - 11/13/2021 12:26 PM EDT SITUATION: Senior Care routine visit completed today. spouse also present during today's visit. patient reports the following: Allergies--reviewed Medications--reviewed current medications Falls--None BACKGROUND: Reason for Home Care: DM assessment and teaching. ASSESSMENT: SN greeted at door by caregiver. Upon entrance patient found in chair Patient appears in no acute distress. Patient/CG concerns verbalized today: Pt verbalizes that he saw pain management this week and was given a new prescription for Xtampza. He states that he has not noted much difference, SN explained that this is an extended release medication and it may take some time to build up in his system, it is very important to take it only as prescribed at every 12 hours. Blood sugars have been 129-160 throughout the day, he did have one fasting reading of 183 this week and he states that he ate sugar free cookies before bed; they do have sorbitol in them. Pt states that he is not eating them anymore. SN instructed pt to experiment with sugar free foods and adjust accordingly, he does like sugar freeice cream and this has not had an adverse effect on his blood sugars. Spouse has been providing healthy meals, pt's appetite is not the greatest and he does like much for meat, he does like eggs and also takes a glucose control Boost every day. Vitals (see flow sheet for details): stable SN findings today: SN explained that the new pain med is an extended release medication and it may take some time to build up in his system, it is very important to take it only as prescribed at every 12 hours. Blood sugars have been 129-160 throughout the day, he did have one fasting reading of 183 this week and he states that he ate sugar free cookies before bed; they do have sorbitol in them. Pt states that he is not eating them anymore. SN instructed pt to experiment with sugar free foods and adjust accordingly, he does like sugar free ice cream and this has not had an adverse effect on his blood sugars. Spouse has been providing healthy meals, pt's appetite is not the greatest and he does like much for meat, he does like eggs and also takes a glucose control Boost every day. Overall;pt appears to be adjusting well to new dx of DM. See intervention summary for education details. Patient demonstrated a need for further skilled SN services for chronic disease management & education, medication education and safety. Current Discharge plan: self-care and family support RECOMMENDATION: Next visit to focus on (be specific): DM assessment and teaching. Follow up on pain management. documented in this [facility]Ch[facility]04[facility]28[facility] Miscellaneous Notes* HH PT ROUTINE/REASSESSMENT/RECERT/CASE MGMT - Mendoza Watts PTA - 11/12/2021 3:01 PM EDT SITUATION: PRINTING PRESS OPERATOR APPRENTICE routine visit. none present during today's visit. patient reports the following since the last homecare visit: medications/allergies--no changes, no fall. patient states . Mendoza I've been doing what you told me to do. I'm staying out of bed more and doing the excercises and walking. BACKGROUND: Diagnoses (reason for Home Care): DM with ketoacidosis with out coma. Weight Bearing/Precaution Changes: no changes ASSESSMENT: Pt reports no increased pain during today's PT tx. Focus of visit: Improving trunk/ LE strength and functional reserve. Plan of care, goals, and visit frequency reviewed and agreed upon with patient and/or caregiver. Current Discharge Plan: Independent with home exercise program Anticipate discharge by: 11/26/21 RECOMMENDATION: Pt would cont to benefit from further PT tx to improve LE/ trunk strength and balance in order to decrease assistance with transfers, walking, and stair negotiation. Next visit to focus on: Improving trunk/ LE strength and functional reserve. See intervention summary for intervention/education details. documented in this encounterJes[place] [id number] Miscellaneous Notes* OT ROUTINE / CASE MGMT VISIT - Audra Hammer OT/L - 11/11/2021 12:00 PM EDT SITUATION: patient reports the following since the last homecare visit: medications/allergies--HYDROcodone-acetaminophen (NORCO) 5-325 mg per tablet, no fall. patient reports that he had a lot of pain after shower transfer last OT visit and does not want to attempt again. BACKGROUND: Diagnoses or reason for Home Care: recent hospitalization d/t DKA ASSESSMENT: Focus of Visit follow up with shower transfer, standing balance, energy conservation education Patient identified goals to be able to make an egg at the stove Plan of care, goals, and visit frequency reviewed and agreed upon with patient and/or caregiver. See intervention summary for intervention/education details. Current Discharge Plan: remain in community with/without caregiver support. Anticipate discharge by 11/21/21. RECOMMENDATION: Next visit to focus on energy conservation, adaptive techniques for sitting on stool to make egg atstove, make sure nothing has changed re: not wanting to address shower transfer and d/c [facility] Miscellaneous Notes* PT ROUTINE/REASSESSMENT/RECERT/CASE MGMT - Mendoza Watts, PRINTING PRESS OPERATOR APPRENTICE - 11/10/2021 3:26 PM EDT SITUATION: PRINTING PRESS OPERATOR APPRENTICE routine visit. 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 patient and caregiver reports the following since the last homecare visit: medications/allergies--no changes, no fall. patient and caregiver reports Pt seen the pain mell bartholomew today and Pt was issued new Pain medication ( See medications ) BACKGROUND: DM, epilepsy, chronic back pain Diagnoses (reason for Home Care): DKA Weight Bearing/Precaution Changes: no changes ASSESSMENT:Pt reports no increased pain during today's PT tx. Pt reports ongoing high level of backpain and is seeing a pain managemen . Focus of visit: Pt advised to follow LE HEP ( 2-3 x a day )and walking program ( Hourly walking during the day ). Plan of care, goals, and visit frequency reviewed and agreed upon with patient and/or caregiver. Current Discharge Plan: family support Anticipate discharge by: 11/26/21 RECOMMENDATION: Pt would cont to benefit from further PT tx to improve LE/ trunk strength and balance in order to decrease assistance with transfers, walking, and stair negotiation. Next visit to focus on: Improving trunk/ LE strength and functional reserve. See intervention summary for intervention/education details. documented in this [facility] Miscellaneous Notes* SN Routine - Kristine Fishman RN - 11/10/2021 9:11 AM EDT SITUATION: [facility] routine visit completed today. spouse also present during today's visit. patient reports the following: Allergies--reviewed Medications--reviewed current medications Falls--None BACKGROUND: Reason for Home Care: DM management. ASSESSMENT: SN greeted at door by caregiver. Upon entrance patient found in bed Patient appears in no acute distress. Patient/CG concerns verbalized today: Pt reports that he pulled something in his leg getting into the shower and ended up going to ER early yesterday am due to acute pain. He was prescribed hydrocodone and is to follow up with pain managment this morning at 11 am. Vitals (see flow sheet for details): stable SN findings today: Pt verbalizes that he is frustrated with pain management because he feels that the injections are not effective. SN encouraged pt about working with therapy, he did not allow the therapist to work with him last week. He does relate that the ER DR suggested that he work with therapy on shower transfers so that it won't cause him pain. Pt spends most of his day in bed and SN instructed pt that that can contribute to his weakness and stiffness and that being up OOB is much better for him. Spouse continues to keep a log of blood sugars and diet,. Blood sugars have generally been in the 110-150 range but he has had a few reqadings in the low to upper 200's. Spouse pays attention to the foods that he has eaten that cause his sugar to go up and she is altering diet accordingly. She appears to have a good handle on this and SN reviewed the protein source food groups with her today. See intervention summary for education details. Patient demonstrated a need for further skilled SN services for chronic disease management & education and safety. Current Discharge plan: family support RECOMMENDATION: Next visit to focus on (be specific): diabetic assessment and teaching, follow up on pain management appt. documented in this encounterCh[facility]04[facility]2022 Miscellaneous Notes* SN Routine - Kristine Fishman RN - 11/04/2021 12:06 PM EDT SITUATION: Senior Care routine visit completed today. patient reports the following: Allergies--reviewed Medications--reviewed current medications Falls--None BACKGROUND: Reason for Home Care: diabetic assessment and instruction. ASSESSMENT: SN greeted at door by no one. Upon entrance patient found in bed. OT has ust finished working with pt Patient appears in no acute distress. Patient/CG concerns verbalized today: Pt verbalizes that he continues to be weak but does feel moreconfident with walking with someone standing by. Vitals (see flow sheet for details): stable SN findings today: OT reports that pt ambulated to shower today and she did a dry run for shower transfer and pt did well. Blood sugar log shows that blood sugars have been 119-175 fasting, 165-189before supper and 114 and 290 at bedtime since last SN vs. Pt reports that he is eating 2 main meals and 1-2 small meals or snacks during the day. It is noted that pt ate supper late last night and his blood sugar was 175 this am. is not home at time of visit but pt reports that they have beendoing well with the insulin injections and have been rotating sites. SN reviewed the importance of regular meal schedule to keep blood sugars more steady. See intervention summary for education details. Patient demonstrated a need for further skilled SN services for chronic disease management & education. Current Discharge plan: self-care and family support RECOMMENDATION: Next visit to focus on (be specific): diabetic assessment and instruction, check blood sugar log. documented in this encounter[facility]04[facility]22 Miscellaneous Notes* OT ROUTINE / CASE MGMT VISIT - Audra Hammer OT/L - 11/04/2021 11:30 AM EDT SITUATION: patient reports the following since the last homecare visit: medications/allergies--no changes, no fall. patient reports he washed up at sink with assist from this AM. Pt felt it went well, plans to follow up with - she was at outpatient therapy during OT visit today. BACKGROUND: Diagnoses or reason for Home Care: recent hospitalization d/t DKA ASSESSMENT: Focus of Visit tub transfers, ADLs Patient identified goals to be able to get outside Plan of care, goals, and visit frequency reviewed and agreed upon with patient and/or caregiver. See intervention summary for intervention/education details. Current Discharge Plan: remain in community with/without caregiver support. Anticipate discharge by 11/21/21 RECOMMENDATION: Next visit to focus on tub transfer with shower. Feel pt is able to take shower using tub transfer bench with assist from aid if comfortable with this, as shower transfer went well today -- planto follow up with and change care plan as appropriate. documented in this encounterCh[facility]04-18-2022 Miscellaneous Notes* Telephone Encounter - Shamika Watts RN - 11/02/2021 10:24 PM EDT calling with request for health information. denies any new or worsening symptoms of which a provider is not aware: Yes. calling in with concerns of patient blood sugar being elevated after eating dinner and having sugar free ice cream. She states he feels fine, acting normal and no associated symptoms. Advised to continue to monitor his blood sugar - is normal for blood sugar to go up after a meal. Advised to continue to administer insulin as ordered and if she should notice anysymptoms or blood sugar to remain elevated to call back. verbalized understanding. documented in this encounterCh[facility]04-18-2022 Miscellaneous Notes* Telephone Encounter - Samantha Ventura, PT - 11/02/2021 4:49 PM EDT Pt eval completed 11/02/21 POC 2w4 for there ex, gait, balance, transfer and stair training documented in this encounterCh[facility]04-18-2022 Miscellaneous Notes* SN Routine - Kristine Fishman, RN - 11/02/2021 12:46 PM EDT SITUATION: Senior [facility] routine visit completed today. spouse also present during today's visit. caregiver reports the following: Allergies--reviewed Medications--reviewed current medications Falls--None BACKGROUND: Reason for Home Care: new diabetic teaching ASSESSMENT: SN greeted at door by caregiver. Upon entrance patient found ambulating with therapist. Patient appears in no acute distress. Patient/CG concerns verbalized today: pt verbalizes that he is feeling weak, not wanting to get outof bed. He is ambulating with therapist using a walker. Vitals (see flow sheet for details): stable SN findings today: Pt is ambulating with walker and therapist, touching assistance is needed for safety. Therapist is recommending that pt ambulate only with supervision. He is to get up and use the bathroom during the day, come out to dining room for meals, only use the BSC at night. Reviewed diabetic care with pt and spouse, spouse is administering the insulin correctly and is checking blood sugars 3 x day. Pt denies any episodes of low blood sugar, this section of the diabetic booklet reviewed and instructed. Much instruction on diet, low carb snack sources, avoid pure carbs like desserts Spouse indicates that pt can be resistant to her encouragement to be out of bed; she states that he spends most of his time laying in bed watching TV and this was the case prior to his hospital stay. reports that pt has had issues with pain meds and he is changing doctors because of this and hewill be seeing Dr Almazan to establish PCP in November. He will follow up with pain management This SN feels that spouse is capable of handling diabetic management needs after discussion and instruction that occurred today. See intervention summary for education details. Patient demonstrated a need for further skilled SN services for chronic disease management & education, medication education and safety. Current Discharge plan: self-care and family support RECOMMENDATION: Next visit to focus on (be specific): diabetic assessment and teaching. documented in this encounterCh[facility]04[facility]-2022 Miscellaneous Notes* OT EVALUATION/REASSESSMENT/RECERT - Sandy Bergman OT/L - 10/31/2021 1:12 PM EDT SITUATION: greeted OT at the door. She states she is pretty tired--she just recently had rightshoulder surgery & is not able to do much to physically assist patient. 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 patient and caregiver reports the following since the last homecare visit: medications/allergies--no changes, no fall. BACKGROUND: Diagnoses or reason for home care: Recent hospitalization d/t DKA. Past medical history: HTN, Chronic back pain, prostate CA, reports has Carpal Tunnel Syndrome bad in both hands--makes it hard to hold onto things. Weight Bearing or Precautions: Fall Precautions. ASSESSMENT: [facility] Reviewed and explained homecare services. Plan of care, goals and visit frequency developed, reviewed, and agreed upon with patient and/or caregiver. reports patient has not showered since May. She was helping him and hewas using a tub seat. She states he almost got stuck in the tub & after that he was afraid to try it again. Patient identified goals: To be able to get outside. Patient will benefit from continued occupational therapy to address the following deficits functional activity including I/ADLs and functional transfers as evidenced by score on Modified Humaira Index 45/100. Current Discharge Plan:remain in community with/without caregiver support. Anticipate discharge/OT Re-assessment by 11/21/21 RECOMMENDATION: Plan for next visit to focus on Tub Transfer Training. See intervention summary for intervention/education details. documented in this encounterCh[facility]04-15-2022 Miscellaneous Notes* SN SOC - Delia Lira RN - 10/30/2021 12:21 PM EDT SITUATION: Senior Care SOC visit completed today. spouse also present during today's visit. patient reports the following: Allergies--reviewed Medications--full medication reconciliation completed Falls--None DME-Reviewed and added to chart BACKGROUND: Discharged/Referral from acute care hospital on 10/29/21 following treatment for DKA. Pertinent referral information or other diagnoses that may affect plan of care: chronic back pain ASSESSMENT: SN greeted at door by caregiver. Upon entrance patient found in bed Patient appears in no acute distress. Patient lives at home with spouse. Home environment: clean, uncluttered and has pets: 1 dog. SOC booklet reviewed & completed with patient and consent obtained for Home Care services. Patient/CG concerns verbalized today: soonest appt with PCP November 30 Vitals (see flow sheet for details): stable SN findings today: Patient laying in bed, c/o back pain, no change from baseline. Patient see pain mgmt for back. Spouse manages medications and checks BS and administers insulin. Much education completed with patient and spouse. Instructed spouse how to prime insulin pen, set dose, administer and that the pens are multi-use. Spouse thought they were one time only and was throwing the pens away after 1 dose. Provided patient and spouse with DM education books. Instructed on administration sites, pen setup, s/s high and low BS, diet and carbs. More education needed. Patient deconditioned and weak since hospitalization. Used walker prior to admission. Agreeable to all [facility] services. Patient spouse just had right total shoulder repair and is unable to assist patient. Will need CONCRETE BUSTER OPERATOR to assist with personal care and shower assist 2x week for 1 month. Will re-evaluate after 1 month of therapy to see if strong enough. SN called and setup appt with endocrinology, soonest appt was 11/24. patient is scheduled to see a new PCP 11/30. See intervention summary for education details and skills performed. Plan of care and visit frequency established with patient and plan of care agreed upon. Patient demonstrated a need for further skilled SN services for chronic disease management & education, medication education and wound/skin care. RECOMMENDATION: Visit Frequency: 1w1; 2w2; 1w5 Need for additional services: Patient agreeable to PT, OT, CONCRETE BUSTER OPERATOR and TOPOLOGY TEACHER referrals. Patient declined N/A referrals. Additional concerns to be followed up on: NONE Next visit to focus on (be specific): Dm education, BS log, monitor for s/s hypo and hyperglycemia documented in this encounterCh[facility]04-14-2022 NoteHNO ID: [id number] Author: Inge Villa RN Service: Care Management Author Type: Registered Nurse Type: Care Mgt Progress Note Filed: 10/29/2021 4:06 PM Note Text: CARE MANAGEMENT DISCHARGE NOTE SERVICE DATE: 10/29/2021 SERVICE TIME: 1450 LOS: 3 days Admission Date: 10/25/2021 DISCHARGE ARRANGEMENT (list agency and phone number) Discharge Arrangement: Home with Home Health Provider Name: [facility] CAREGIVER ASSESSMENT: HANDOFF COMMUNICATION: Handoff to: Primary Care Physician Primary Care Physician Name/Phone: Dr. Fredis Villeda/[phone] TRANSPORTATION ARRANGEMENTS: Transportation Arrangements: Car ADDITIONAL CONTACT RESOURCES: Radha Wheeler-spouse Discharge Information Row Name ED to Hosp-Admission (Current) from 10/25/2021 in [facility] Care Agency [facility] Start of Care 10/30/21 Pt will be discharged to home today with spouse. [facility] has accepted pt. Spouse will transport pt home today. SIGNATURE: Inge Villa RN PATIENT NAME: Lino Wheeler DATE: October 29, 2021 TIME: 3:47 PM PAGER/CONTACT #: [phone] NoteHNO ID: [id number] Author: Christin Ovalle (Internet Marketing Intern) Service: Pharmacy Author Type: ? Type: Plan of Care Filed: 10/29/2021 2:42 PM Note Text: PHARMACY BEDSIDE DELIVERY SERVICE Patient Name: Lino Wheeler The marked outpatient medications were Filled at: [place] and delivered to the patient's bedside to [facility] Medication List START taking these medications alcohol swabs Use with blood glucose test 3 times daily. X blood sugar diagnostic test strip Use with blood glucose test 3 times daily. X Blood-Glucose Meter 1 Device three times daily. Test Three times a day. X glucose 4 gram chewable tablet Take 4 tablets by mouth as needed for low blood sugar. insulin lispro 100 unit/mL Commonly known as: HumaLOG KWIKPEN Inject 6 Units subcutaneously daily with dinner. X * Insulin [place] (Disposable) 32 gauge x 5/32 Commonly known as: PEN NEEDLE Use to inject insulin twice daily. * Insulin [place] (Disposable) 32 gauge x 5/32 Commonly known as: PEN NEEDLE Use to inject insulin up to 8 times per day. X Lancets lancets Use with blood glucose test 3 times daily. X LANTUS SOLOSTAR U-100 INSULIN 100 unit/mL (3 mL) Generic drug: insulin glargine Inject 21 Units subcutaneously every morning. X SHARPS CONTAINER Misc Generic drug: Oral Medication Containers 1 Container as needed (For disposal of insulin needles, lancets, and other sharp objects) for up to 1 day. * This list has 2 medication(s) that are the same as other medications prescribed for you. Read the directions carefully, and ask your doctor or other care provider to review them with you. CONTINUE taking these medications allopurinol 300 mg tablet Commonly known as: ZYLOPRIM atenolol 50 mg tablet Commonly known as: TENORMIN CRESTOR 10 mg tablet Generic drug: rosuvastatin levETIRAcetam 500 mg tablet Commonly known as: KEPPRA PERCOCET 10-325 mg tablet Generic drug: oxyCODONE-acetaminophen tamsulosin 0.4 mg Commonly known as: FLOMAX You might also be taking other medications not listed above. If you have questions about any of your other medications, talk to the person who prescribed them or your Primary Care Provider. STOP taking these medications HYDROcodone-acetaminophen 5-325 mg per tablet Commonly known as: NORCO phenazopyridine 100 mg tablet Commonly known as: PYRIDIUM, GERIDIUM traMADol 50 mg tablet Commonly known as: ULTRAM Christin Ovalle (Internet Marketing Intern) PAGER: [phone] October 29, 2021 2:41 PMCommunity Memorial [id number] NoteHNO ID: [id number] Author: Inge Villa RN Service: Care Management Author Type: Registered Nurse Type: Care Mgt Progress Note Filed: 10/28/2021 1:42 PM Note Text: CARE MANAGEMENT PROGRESS NOTE SERVICE DATE: 10/28/2021 SERVICE TIME: 1340 LOS: 2 days IMM Follow Up Copy Given: Yes Copy given to:: Patient Method: In Person . SIGNATURE: Inge Villa RN PATIENT NAME: Lino Wheeler DATE: October 28, 2021 TIME: 1:42 PM PAGER/CONTACT #: [phone] [place] [id number] NoteHNO ID: [id number] Author: Inge Villa RN Service: Care Management Author Type: Registered Nurse Type: Care Mgt Progress Note Filed: 10/28/2021 12:12 PM Note Text: CARE MANAGEMENT PROGRESS NOTE SERVICE DATE: 10/28/2021 SERVICE TIME: 1200 LOS: 2 days [place] of Choice Given: Yes Level of Care Discussed: Home Care Financial Disclosure Provided: Yes Financial Disclosure Comments: per careport list Provider List: Home Care Provider list within the patient's requested geographic area shared with the patient/family: Yes within: 20 miles of zip code: [address] Quality and resource use metrics shared with the patient that are relevant to the patient's goals of care and treatment preferences:: Yes Metrics: Medication Reconciliation;Transfer of Health Information and Care Preferences;Discharge to Community . SIGNATURE: Inge Villa RN PATIENT NAME: Lino Wheeler DATE: October 28, 2021 TIME: 12:12 PM PAGER/CONTACT #: [phone] [place] [id number] Miscellaneous Notes* Telephone Encounter - ANTONINO Faith - 10/28/2021 2:11 PM EDT CONFIRMATION CALL a. Date and Time: 2:12 PM 10/28/2021 b. Contact name/relationship: Radha/spouse No Travel or Exposure Have you been active with any Home Care company in the last 60 days? No. Caregiver: Yes - Caregiver name Radha ; spoke with Radha to confirm 10/28/21 ANTONINO Faith documented in this encounterCh[facility]04-[facility]-2022 NoteHNO ID: [id number] Author: Misael Crabtree PA-C Service: Hospital Medicine Author Type: Physician Sammying Machine Operator Type: Progress Notes Filed: 10/28/2021 10:37 AM Note Text: DEPARTMENT OF HOSPITAL MEDICINE PROGRESS NOTE SERVICE DATE: 10/28/2021 SERVICE TIME: 10:31 AM Hospital Medicine/Primary Attending: Juni Knapp MD NIGHT AND WEEKEND COVERAGE: [place] COVERAGE: Days: [phone], please page attending physician. Nights: [phone], please page [place] Hospitalist Night coverage pager [phone]. Subjective INTERVAL HPI: Patient is resting comfortably in bed. Patient was seen with Endocrinology at the bedside. Patient reports continued improvement of his appetite. Patient denies any chest pain, abdominal pain, nausea, or vomiting. No fever or chills. Patient is initially refusing SNF discharge. Will discuss with his this afternoon. Current Facility-Administered Medications Medication Dose Route Frequency - sodium chloride 0.9 % (flush) 3-5 mL (BD POSIFLUSH) 3-5 mL INTRAVENOUS q 12 H - NaCl 0.9% iv flush bag 20 mL INTRAVENOUS PRN - levETIRAcetam 500 mg tab(s) (KEPPRA) 500 mg ORAL BID - rosuvastatin 10 mg tab(s) (CRESTOR) 10 mg ORAL DAILY - tamsulosin 0.4 mg cap(s) (FLOMAX) 0.4 mg ORAL DAILY - atenolol 50 mg tab(s) (TENORMIN) 50 mg ORAL DAILY - allopurinol 300 mg tab(s) (ZYLOPRIM) 300 mg ORAL DAILY - oxyCODONE 10 mg - acetaminophen 325 mg tablet (PERCOCET) 1 tablet ORAL q 6 H PRN - heparin 5,000 Units injection 5,000 Units SUBCUTANEOUS q 12 H - insulin lispro injection (rapid acting) (HumaLOG) SUBCUTANEOUS w MEALS - insulin lispro injection (rapid acting) (HumaLOG) SUBCUTANEOUS AT BEDTIME - dextrose 40 % 15 g 15 g ORAL PRN Or - glucagon 1 mg injection 1 mg INTRAMUSCULAR PRN Or - dextrose 50% in water 25 mL syringe 12.5 g INTRAVENOUS PRN - mupirocin 2 % 0.5 g nasal ointment (BACTROBAN) 0.5 g NASAL BID - insulin glargine 20 Units pen (long acting) (LANTUS SOLOSTAR, BASAGLAR KWIKPEN) 20 Units SUBCUTANEOUS DAILY (8 AM) - insulin lispro 8 Units injection (rapid acting) (HumaLOG) 8 Units SUBCUTANEOUS w MEALS - super butt paste TOPICAL PRN Objective PHYSICAL EXAM: BP 137/73 Pulse 79 Temp (Src) 98.8 (Oral) Resp 16 Ht 5' 9 (1.75m) Wt 180 lb 8.9 oz (81.9kg) SpO2 96% BMI 26.65 kg/(m2). O2 Therapy: Room Air Physical Exam Performed General: NAD, resting comfortably in bed, polite and cooperative HEENT: Normocephalic, atraumatic, Pupils are equal, round, and reactive to light, EOMI Lungs: Diminished, CTA bilaterally without wheezes, rales, rhonchi. Unlabored respiratory effort Heart: Regular rate and rhythm without ectopy Abdomen: Soft, obese, nontender, bowel sounds present in all ashby, no HSM, no rebound or guarding. Musculoskeletal: Thin and Frail. Appears to have full ROM of the UE/LE without deficit. Vascular: Cap refill brisk less than 2 sec. No cyanosis or edema. Neuro: CN II-XII intact. Skin: No rashes, lesions, or cellulitis Lines, Drains, and Airways Line Peripheral Admission to Hospital Left Hand 20 Gauge -- days Peripheral Left Arm 20 Gauge -- days Drain External Collection Device 10/27/21 1030 1 day Reviewed lines and needs to be continued: REASONS: Telemetry and Electrolyte replacement DATA: Diagnostic tests reviewed for today's visit: Most recent labs Most recent imaging Assessment/Plan Problem List DKA (diabetic ketoacidosis) (HCC) POA: Yes Epilepsy (HCC) POA: Yes Chronic back pain POA: Yes Gout POA: Yes HTN (hypertension) POA: Yes Hyperlipidemia POA: Yes Prostate cancer (HCC) POA: Yes HOSPITAL COURSE: Lino Wheeler is a 86 year old male presented with past medical history of eplilepsy, gout, HTN, and prostate cancer presented to the hospital with generalized weakness. Patient was admitted for DKA to the ICU. He was treated on IV insulin and anion gapped closed and patient transitioned to subQ insulin. Patient was seen by Endocrinology (Dr. Womack). Patient had up titration of basal and prandial insulin. DKA (diabetic ketoacidosis) (HCC) - Continues to have improving blood sugars - Continue to have Endocrinology adjustment - Continue Lantus 20 units in AM - Continue Humalog 8 units wiuth meals with SSI #1 - Monitor glucometer checks - HgbA1c 11.3 - Hyperkalemia improved - Monitor blood sugars Generalized Weakness - reports patient has had gradual decline - OT recommended SNF - is concerned that she will not be able to care for the patient at home - Likely will require SNF discharge - Plan for discussion with patient and family Epilepsy (HCC) - Chronic and stable - No seizure activity - Continue Keppra 500mg BID Chronic back pain - Chronic and stable - Tylenol as needed for pain Gout - Chronic and stable - Continue Allopurinol 300mg daily HTN (hypertension) - Chronic and Stable - Continue Atenolol 50mg daily Hyperlipidemia - Chronic and (more content not included)...[id number] NoteHNO ID: [id number] Author: Inge Villa RN Service: Care Management Author Type: Registered Nurse Type: Care Mgt Progress Note Filed: 10/27/2021 4:51 PM Note Text: CARE MANAGEMENT PROGRESS NOTE SERVICE DATE: 10/27/2021 SERVICE TIME: 1540 LOS: 1 day Anticipated discharge needs:SNF choices, accepting facility and precert Telephoned and spoke with pt's Radha, she states she is unable to care for pt at home right now, she hurt her shoulder and is going to outpatient therapy herself. She states pt needs to be able to walk to the bathroom independently, she is not able to assist. Spouse will be in by 1300 tomorrow will meet with her and pt to discuss SNF. SIGNATURE: Inge Villa RN PATIENT NAME: Lino Wheeler DATE: October 27, 2021 TIME: 4:46 PM PAGER/CONTACT #: [phone] NoteHNO ID: [id number] Author: Misael Crabtree PA-C Service: Hospital Medicine Author Type: Physician Sammying Machine Operator Type: Progress Notes Filed: 10/27/2021 4:12 PM Note Text: DEPARTMENT OF HOSPITAL MEDICINE PROGRESS NOTE SERVICE DATE: 10/27/2021 SERVICE TIME: 3:59 PM Hospital Medicine/Primary Attending: Juni Knapp MD NIGHT AND WEEKEND COVERAGE: [place] COVERAGE: Days: [phone], please page attending physician. Nights: [phone], please page [place] [facility] Night coverage pager [phone]. Subjective INTERVAL HPI: Patient is resting comfortably in bed. Anxious to be discharge. No chest pain, sob, dyspnea, abdominal pain, nausea, or vomiting. Patient denies any difficulty eating. He had difficulty working with telehealth nurse educator and requested his be present. OT recommending SNF. Current Facility-Administered Medications Medication Dose Route Frequency - sodium chloride 0.9 % (flush) 3-5 mL (BD POSIFLUSH) 3-5 mL INTRAVENOUS q 12 H - NaCl 0.9% iv flush bag 20 mL INTRAVENOUS PRN - levETIRAcetam 500 mg tab(s) (KEPPRA) 500 mg ORAL BID - rosuvastatin 10 mg tab(s) (CRESTOR) 10 mg ORAL DAILY - tamsulosin 0.4 mg cap(s) (FLOMAX) 0.4 mg ORAL DAILY - atenolol 50 mg tab(s) (TENORMIN) 50 mg ORAL DAILY - allopurinol 300 mg tab(s) (ZYLOPRIM) 300 mg ORAL DAILY - oxyCODONE 10 mg - acetaminophen 325 mg tablet (PERCOCET) 1 tablet ORAL q 6 H PRN - heparin 5,000 Units injection 5,000 Units SUBCUTANEOUS q 12 H - insulin lispro injection (rapid acting) (HumaLOG) SUBCUTANEOUS w MEALS - insulin lispro injection (rapid acting) (HumaLOG) SUBCUTANEOUS AT BEDTIME - dextrose 40 % 15 g 15 g ORAL PRN Or - glucagon 1 mg injection 1 mg INTRAMUSCULAR PRN Or - dextrose 50% in water 25 mL syringe 12.5 g INTRAVENOUS PRN - mupirocin 2 % 0.5 g nasal ointment (BACTROBAN) 0.5 g NASAL BID - insulin glargine 20 Units pen (long acting) (LANTUS SOLOSTAR, BASAGLAR KWIKPEN) 20 Units SUBCUTANEOUS DAILY (8 AM) - insulin lispro 8 Units injection (rapid acting) (HumaLOG) 8 Units SUBCUTANEOUS w MEALS - super butt paste TOPICAL PRN Objective PHYSICAL EXAM: BP 116/65 Pulse 72 Temp (Src) 98.6 (Oral) Resp 17 Ht 5' 9 (1.75m) Wt 181 lb 7 oz (82.3kg) SpO2 97% BMI 26.78 kg/(m2). O2 Therapy: Room Air Physical Exam Performed General: NAD, resting comfortably in bed, polite and cooperative HEENT: Normocephalic, atraumatic, Pupils are equal, round, and reactive to light, EOMI, Mucus membranes moist Lungs: Diminished, CTA bilaterally without wheezes, rales, rhonchi. Unlabored respiratory effort Heart: Regular rate and rhythm without ectopy Abdomen: Soft, nontender, bowel sounds present in all ashby, no HSM, no rebound or guarding. Musculoskeletal: Thin and Frail. Appears to have full ROM of the UE/LE without deficit. Vascular: Cap refill brisk less than 2 sec. No cyanosis or edema. Neuro: CN II-XII intact. Answers all questions appropriately. Skin: No rashes, lesions, or cellulitis Lines, Drains, and Airways Line Peripheral Admission to Hospital Left Hand 20 Gauge -- days Peripheral Left Arm 20 Gauge -- days Drain External Collection Device 10/27/21 1030 <1 day Reviewed lines and needs to be continued: REASONS: Telemetry and Electrolyte replacement DATA: Diagnostic tests reviewed for today's visit: Most recent labs Most recent imaging Assessment/Plan Problem List DKA (diabetic ketoacidosis) (HCC) POA: Yes Epilepsy (HCC) POA: Yes Chronic back pain POA: Yes Gout POA: Yes HTN (hypertension) POA: Yes Hyperlipidemia POA: Yes Prostate cancer (HCC) POA: Yes HOSPITAL COURSE: Lino Wheeler is a 86 year old male presented with past medical history of eplilepsy, gout, HTN, and prostate cancer presented to the hospital with generalized weakness. Patient was admitted for DKA to the ICU. He was treated on IV insulin and anion gapped closed and patient transitioned to subQ insulin. Patient was seen by Endocrinology (Dr. Womack). Patient had up titration of basal and prandial insulin. DKA (diabetic ketoacidosis) (HCC) - Continues to have improving blood sugars - Continue to have Endocrinology adjustment - Continue Lantus 20 units in AM - Continue Humalog 8 units wiuth meals with SSI #1 - Monitor glucometer checks - HgbA1c 11.3 - Mild hyperkalemia this morning. IVF 500cc given and insulin - Recheck K+ improved Generalized Weakness - reports patient has had gradual decline - OT recommended SNF - is concerned that she will not be able to care for the patient at home - Likely will require SNF discharge Epilepsy (HCC) - Chronic and stable - No seizure activity - Continue Keppra 500mg BID Chronic back pain - Chronic and stable - Tylenol as needed for pain Gout - Chronic and stable - Continue Allopurinol 300mg daily HTN (hypertension) - Chronic and Stable - Continue Atenolol 50mg daily Hyperlipidemia - Chronic and Stable (more content not included)...[facility] [id number] NoteHNO ID: [id number] Author: Isaiah Baxter RN Service: Diabetes Education Author Type: Registered Nurse Type: Patient Education Filed: 10/27/2021 12:22 PM Note Text: DIABETES EDUCATION INPATIENT PROGRESS NOTE INITIAL OR FOLLOW-UP: Follow up visit VISIT TYPE: in-person SERVICE DATE: 10/27/2021 SERVICE TIME: 1200 RECOMMENDATIONS TO DISCHARGING PROVIDER FOR DISCHARGE ORDERS: Lancets, 100/box, epic code 73936 Blood glucose test strips, 50 per box, epic code 90022 (in comments section instruct pharmacy to dispense the test strips covered by patient's insurance) Blood-glucose meter kit, disp 1, epic code 39078 (enter in comment that pharm should fill with the meter covered by patient's insurance) Humalog Kwikpen U100, 5 pens/box, epic code 820780 Lantus Solostar, 5 pens/box, epic code 77844 BD Ultra-fine pen needles - Jamilah (32g x 5/32), 100/box, epic code [id number] RECOMMENDATIONS TO INPATIENT NURSE: Allow patient to dial up insulin pen dose (supervised) PATIENT HISTORY/ASSESSMENT: Previously diagnosed: Type 2 Met with patient and his . She reports that patient is illiterate so she manages all care and treatments for patient. She had surgery on her shoulder and remains in a sling currently. She expresses that she feels she is unable to adequately manage patient's care with her shoulder at home. She was able to operate the insulin pens and place new needle on pen but feels overwhelmed with prospect of having to manage at home. Reports they have a meter at home but that she had trouble getting adequate blood and he would complain so she stopped checking his sugars at home. INTERVENTIONS/TOPICS COVERED: -Monitoring: using a home glucose monitor -Medications: medication safety/timing, medication side effects, insulin storage, site selection/rotation, pen injection instruction, basal insulin and prandial insulin -Problem Solving: hypoglycemia s/sx/tx and hyperglycemia s/sx/tx EDUCATION: Cognitive ability: Alert and Oriented. Motivation to learn: Disinterested / Avoidant. Barriers to learning: None Family support: Moderate - Family present but overwhelmed Education Type: Individual instruction Written instruction - handouts Verbal instruction Demonstration-Hands on Learning Response to education: States/Identifies and Return Demonstration. Education provided to: Spouse. Teachback method used: Yes Handouts provided: Healthy You: Survival Skills SIGNATURE: Isaiah Baxter RN PATIENT NAME: Lino Wheeler DATE: October 27, 2021 TIME: 12:14 PM PAGER: [id number] NoteHNO ID: [id number] Author: Isaiah Baxter RN Service: Diabetes Education Author Type: Registered Nurse Type: Patient Education Filed: 10/27/2021 9:39 AM Note Text: DIABETES EDUCATION INPATIENT PROGRESS NOTE INITIAL OR FOLLOW-UP: First diabetes care AND education visit this admission VISIT TYPE: in-person SERVICE DATE: 10/27/2021 SERVICE TIME: 929 RECOMMENDATIONS TO DISCHARGING PROVIDER FOR DISCHARGE ORDERS: Lancets, 100/box, epic code 46004 Blood glucose test strips, 50 per box, epic code 35928 (in comments section instruct pharmacy to dispense the test strips covered by patient's insurance) Blood-glucose meter kit, disp 1, epic code 47732 (enter in comment that pharm should fill with the meter covered by patient's insurance) Humalog Kwikpen U100, 5 pens/box, epic code 014819 Lantus Solostar, 5 pens/box, epic code 65525 BD Ultra-fine pen needles - Jamilah (32g x 5/32), 100/box, epic code 536882 RECOMMENDATIONS TO INPATIENT NURSE: N/A PATIENT HISTORY/ASSESSMENT: Previously diagnosed: Type 2 INTERVENTIONS/TOPICS COVERED: Patient states his will be coming to visit him around 11 and that she will likely be the one giving him injections. Will plan to return after that time to do education with both of them present. SIGNATURE: Isaiah Baxter RN PATIENT NAME: Lino Wheeler DATE: October 27, 2021 TIME: 9:37 AM PAGER: [id number] NoteHNO ID: [id number] Author: Delia Duffy DO Service: Hospital Medicine Author Type: Physician Type: Progress Notes Filed: 10/26/2021 8:55 PM Note Text: DEPARTMENT OF HOSPITAL MEDICINE PROGRESS NOTE NIGHT AND WEEKEND COVERAGE: [place] COVERAGE: Days: [phone], please page attending physician. Nights: [phone], please page [place] [facility] Night coverage pager [phone]. Hospital Medicine/Primary Attending: Delia Duffy DO Subjective HPI: generalized weakness Interval Events: 86-year-old man who presented to the hospital overnight with generalized weakness and generally not feeling well for a period of 4 days. He had some recent nausea and vomiting. He was found to be hyperglycemic with positive serum ketones on labs. He also had an anion gap metabolic acidosis. Because of this there was concern for DKA and he was started on an insulin infusion prior to being admitted to the ICU. This morning, he tells me he is feeling well. He denies any significant pain but he does take Percocet chronically for chronic back pain. Of note, he was told that he had type 2 diabetes many years ago and was on Metformin. This was stopped due to some intolerance and his primary care physician later told him that he no longer had diabetes.pt did well overnight and his sugars were under control. So he is being moved out to the floor. He has no teeth so I changed him to a dental soft diet. ? Objective PHYSICAL EXAM: BP 119/62 Pulse 80 Temp (Src) 97.9 (Oral) Resp 18 Ht 5' 9 (1.75m) Wt 181 lb 3.5 oz (82.2kg) SpO2 93% BMI 26.75 kg/(m2). O2 Therapy: Room Air Physical Exam Vital signs and telemetry waveform data reviewed General : Well nourished, in no distress Eyes: Pupils equal, round, and reactive. No scleral icterus ENT: Trachea midline, normal dentition Heart: RRR, no murmurs Lungs: clear to auscultation bilaterally, no wheezes rales, or rhonchi. Equal air entry bilaterally Abdomen: Soft and nontender, normal bowel sounds Musculoskeletal: no bony or joint deformity, no cyanosis or clubbing Neuro: Alert and oriented x3, moves all extremities Skin: No acute rash or skin change, skin is normal to palpation ? ? Lines, Drains, and Airways Line Peripheral Admission to Hospital Left Hand 20 Gauge -- days Peripheral Left Arm 20 Gauge -- days Reviewed lines and needs to be continued: REASONS: Telemetry MEDICATIONS: Reviewed DATA: Diagnostic tests reviewed for today's visit: Most recent imaging Most recent labs ? 1. Hyperglycemia 2. Diabetic ketoacidosis 3. Hypertension 4. Hyperlipidemia 5. History of seizure disorder 6. Chronic back pain ? -Plan to start long-acting insulin with Lantus today and then stop insulin infusion. -Body scale insulin with meals. Start diet at lunchtime. -Endocrinology consulted -Continue atenolol -On Keppra for seizure disorder -Continue chronic oxycodone for back pain. -Continue statin [id number] History of Past illness Narrative* Problem Noted Date Resolved Date DKA (diabetic ketoacidosis) 10/26/202107/18 documented as of this encounter (statuses as of 08/13/2022) [facility]04-11-2022 History of Past illness Narrative* Problem Noted Date Resolved Date DKA (diabetic ketoacidosis) 10/26/202107/18 documented as of this encounter (statuses as of 11/24/2022) [address]22 History of Past illness Narrative* Problem Noted Date Resolved Date DKA (diabetic ketoacidosis) 10/26/202107/18 documented as of this encounter (statuses as of 01/21/2023) [facility]04-11-2022 History of Past illness Narrative* Problem Noted Date Diagnosed Date Resolved Date DKA (diabetic ketoacidosis) 10/26/2021 08/04/2022 documented as of this encounter (statuses as of 01/29/2023) [address]22 History of Past illness Narrative* Problem Noted Date Diagnosed Date Resolved Date DKA (diabetic ketoacidosis) 10/26/2021 08/04/2022 documented as of this encounter (statuses as of 02/17/2023) [address]22 History of Past illness Narrative* Problem Noted Date Diagnosed Date Resolved Date DKA (diabetic ketoacidosis) 10/26/2021 08/04/2022 documented as of this encounter (statuses as of 02/22/2023) [address]22 History of Past illness Narrative* Problem Noted Date Diagnosed Date Resolved Date DKA (diabetic ketoacidosis) 10/26/2021 08/04/2022 documented as of this encounter (statuses as of 03/28/2023) [address] History of Past illness Narrative* Problem Noted Date Diagnosed Date Resolved Date DKA (diabetic ketoacidosis) 10/26/2021 08/04/2022 documented as of this encounter (statuses as of 03/29/2023) [address]2022 History of Past illness Narrative* Problem Noted Date Diagnosed Date Resolved Date DKA (diabetic ketoacidosis) 10/26/2021 08/04/2022 documented as of this encounter (statuses as of 04/28/2023) [address]22 History of Past illness Narrative* Problem Noted Date Diagnosed Date Resolved Date DKA (diabetic ketoacidosis) 10/26/2021 08/04/2022 documented as of this encounter (statuses as of 06/13/2023) [address]22 History of Past illness Narrative* Problem Noted Date Diagnosed Date Resolved Date DKA (diabetic ketoacidosis) 10/26/2021 08/04/2022 documented as of this encounter (statuses as of 06/16/2023) [address]22 History of Past illness Narrative* Problem Noted Date Diagnosed Date Resolved Date DKA (diabetic ketoacidosis) 10/26/2021 08/04/2022 documented as of this encounter (statuses as of 08/29/2023) [address]-2022 History of Past illness Narrative* Problem Noted Date Diagnosed Date Resolved Date DKA (diabetic ketoacidosis) 10/26/2021 08/04/2022 documented as of this encounter (statuses as of 09/01/2023) [address] History of Past illness Narrative* Problem Noted Date Diagnosed Date Resolved Date DKA (diabetic ketoacidosis) 10/26/2021 08/04/2022 documented as of this encounter (statuses as of 09/01/2023) [address]-2022 History of Past illness Narrative* Problem Noted Date Diagnosed Date Resolved Date DKA (diabetic ketoacidosis) 10/26/2021 08/04/2022 documented as of this encounter (statuses as of 09/21/2023) [address]2022 History of Past illness Narrative* Problem Noted Date Diagnosed Date Resolved Date DKA (diabetic ketoacidosis) 10/26/2021 08/04/2022 documented as of this encounter (statuses as of 09/27/2023) [address]22 History of Past illness Narrative* Problem Noted Date Diagnosed Date Resolved Date DKA (diabetic ketoacidosis) 10/26/2021 08/04/2022 documented as of this encounter (statuses as of 09/28/2023) [address]22 History of Past illness Narrative* Problem Noted Date Diagnosed Date Resolved Date DKA (diabetic ketoacidosis) 10/26/2021 08/04/2022 documented as of this encounter (statuses as of 10/03/2023) [address]22 History of Past illness Narrative* Problem Noted Date Diagnosed Date Resolved Date DKA (diabetic ketoacidosis) 10/26/2021 08/04/2022 documented as of this encounter (statuses as of 10/04/2023) [address]-2022 History of Past illness Narrative* Problem Noted Date Diagnosed Date Resolved Date DKA (diabetic ketoacidosis) 10/26/2021 08/04/2022 documented as of this encounter (statuses as of 10/05/2023) [address]22 History of Past illness Narrative* Problem Noted Date Diagnosed Date Resolved Date DKA (diabetic ketoacidosis) 10/26/2021 08/04/2022 documented as of this encounter (statuses as of 10/10/2023) [address]22 History of Past illness Narrative* Problem Noted Date Diagnosed Date Resolved Date DKA (diabetic ketoacidosis) 10/26/2021 08/04/2022 documented as of this encounter (statuses as of 10/20/2023) [address]22 History of Past illness Narrative* Problem Noted Date Diagnosed Date Resolved Date DKA (diabetic ketoacidosis) 10/26/2021 08/04/2022 documented as of this encounter (statuses as of 11/04/2023) [address]22 NoteHNO ID: [id number] Author: Krish Carreno MD Service: eHospital Author Type: Physician Type: Progress Notes Filed: 10/26/2021 2:39 AM Note Text: [facility]Hospital Provider Note Call Initiation By: Bedside Caregiver: Provider Primary Reason for Call: Admission to ICU Assessment: DKA Intervention(s): Review admission plan of care;Laboratory tests Plan/Intervention (other): Insulin infusion Consult Service: Endocrinology SIGNATURE: Krish Carreno MD PATIENT NAME: Lino Wheeler DATE: October 26 2021 TIME: 02:38 [facility] note* Diagnosis Postlaminectomy syndrome, not elsewhere classified documented in this encounter [facility] Work Phone: Evaluation note* Diagnosis DKA (diabetic ketoacidosis) ([facility]) Type II or unspecified type diabetes mellitus with ketoacidosis, not stated as uncontrolled Diabetes mellitus type 2 with ketoacidosis, uncontrolled (HCC) Type II or unspecified type diabetes mellitus with ketoacidosis, uncontrolled documented in this encounter [facility] noteNo assessment information availableWMer[facility] Work Phone: Evaluation note* Diagnosis Type 2 diabetes mellitus without complication, with long-term current use of insulin (HCC)- Primary DDD (degenerative disc disease), lumbar Degeneration of lumbar or lumbosacral intervertebral disc Chronic bilateral low back pain with bilateral sciatica Hyperlipidemia, mixed Mixed hyperlipidemia History of seizures Personal history of other disorders of nervous system and sense organs Essential hypertension Unspecified essential hypertension Chronic gout without tophus, unspecified cause, unspecified site documented in this encounter [facility] note* Diagnosis Controlled type 2 diabetes mellitus without complication, with long-term current use of insulin (HCC)- Primary documented in this encounter [facility] note* Diagnosis Chronic low back pain, unspecified back pain laterality, unspecified whether sciatica present- Primary Primary hypertension Unspecified essential hypertension Type 2 diabetes mellitus without complication, with long-term current use of insulin (HCC) documented in this encounter [facility] note* Diagnosis Primary hypertension- Primary Unspecified essential hypertension Chronic bilateral low back pain with bilateral sciatica Type 2 diabetes mellitus without complication, with long-term current use of insulin (HCC) Hyperlipidemia, mixed Mixed hyperlipidemia Prostate cancer (HCC) Malignant neoplasm of prostate Nonintractable epilepsy without status epilepticus, unspecified epilepsy type (HCC) Acute pain of left shoulder Chronic left shoulder pain Pain in joint, shoulder region Left wrist pain Pain in joint, forearm [facility] Diagnosis Type 2 diabetes mellitus without complication, with long-term current use of insulin (HCC) [facility] Diagnosis Primary hypertension- Primary Unspecified essential hypertension Type 2 diabetes mellitus without complication, with long-term current use of insulin (HCC) Hyperlipidemia, mixed Mixed hyperlipidemia [facility] Diagnosis Hypertension, unspecified type- Primary Type 2 diabetes mellitus without complication, with long-term current use of insulin (HCC) Hyperlipidemia, mixed Mixed hyperlipidemia [facility] Diagnosis Chronic bilateral low back pain with bilateral sciatica- Primary Frequent falls Personal history of fall Type 2 diabetes mellitus without complication, with long-term current use of insulin (HCC) Prostate cancer (HCC) Malignant neoplasm of prostate Hypertension, unspecified type Nonintractable epilepsy without status epilepticus, unspecified epilepsy type (HCC) Hyperlipidemia, mixed Mixed hyperlipidemia [facility] Diagnosis Chronic low back pain, unspecified back pain laterality, unspecified whether sciatica present- Primary Type 2 diabetes mellitus without complication, with long-term current use of insulin (HCC) DDD (degenerative disc disease), lumbar Degeneration of lumbar or lumbosacral intervertebral disc Nonintractable epilepsy without status epilepticus, unspecified epilepsy type (HCC) Generalized weakness Other malaise and fatigue [facility] Diagnosis Needs assistance with community resources- Primary [facility] Diagnosis Chronic gout without tophus, unspecified cause, unspecified site- Primary [facility] Diagnosis Needs assistance with community resources- Primary [facility] Diagnosis Type 2 diabetes mellitus without complication, with long-term current use of insulin (HCC)- Primary Nonintractable epilepsy without status epilepticus, unspecified epilepsy type (HCC) Hypertension, unspecified type Chronic gout without tophus, unspecified cause, unspecified site Chronic bilateral low back pain with bilateral sciatica Hyperlipidemia, mixed Mixed hyperlipidemia Generalized weakness Other malaise and fatigue History of prostate cancer Personal history of malignant neoplasm of prostate Adjustment disorder with depressed mood [facility] Type 2 diabetes mellitus without complication, with long-term current use of insulin (HCC) [facility] Diagnosis Type 2 diabetes mellitus without complication, with long-term current use of insulin (HCC) [facility] Diagnosis Adjustment disorder with depressed mood documented in this encounter [facility] note* Diagnosis Injury of left foot, initial encounter- Primary Injury of right foot, initial encounter Pedal edema Edema Foot pain, bilateral Pain in limb [facility] Diagnosis Injury of left foot, initial encounter Injury of right foot, initial encounter Pedal edema Edema Foot pain, bilateral Pain in limb [facility] Diagnosis Onset Date Resolution Status Admit Date Failure to thrive acute September 172024 6:29pm History of diabetes mellitus , type II acute October 15, 2024 6:29pm [facility] Work Phone: History and physical note Author Gemma Nava [facility] Note Date/Time October 15, 2024 6:3 5pm [facility] Medical Records Department [address] [place] [address] H&P Exam - Hospitalist 10/15/24 1820 MR#: [id number] Acct: [id number] Name: LINO WHEELER Rep #:[id number] : 1935 89 From: Gemma Nava MD PCP: Saulo Schultz MD Status:REG ER Location: ED HPI - General General Date of Admission: 10/15/24 Date of Service: 10/15/24 Chief Complaint: Inability to care for self HPI Narrative LINO WHEELER, is a 89-year-old male history of chronic pain, diabetes, seizuredisorder, BPH, chronic anticoagulation on Xarelto presented to [facility] ED 10/15/2024 due to concerns about him caring for himself at home.? Patient's was admitted to the ICU yesterday and she is primary caregiver, granddaughter went to his house today and was concerned about his ability to care for himself and had patient come to the ED.? Patient initially refused admission and was evaluated by ED physician felt to have capacity to make that decision, plan was for patient to go home however family very concerned about this and son refused to come pick patient up, ultimately patient was agreeable to admission for placement.? Labs ordered and hospitalist contacted for admission.? Patient evaluated at bedside and reports he feels fine and has no acute complaints. His last fall was about a week ago and reports he has had a little bit of swelling in his feet but no other new or acute changes, has some chronic shortness of breath which has not changed and no cough, during his fall he did not injure anything new or have any additional complaints, has chronic back pain from multiple lumbar surgeries which is at his baseline. [facility] Medical History History of seizure disorder Gout Drooping eyelid Home Medications ?Medication ?Instructions ?Recorded ?Last Taken ?Type hydroxyzine pamoate 25 mg capsule 50 mg (2 x 25 mg) PO QHS PRN 01/04/22 Unknown Rx insomnia #30 CAPSULES allopurinol 300 mg tablet 300 mg PO DAILY 10/15/24 Unk nown History amitriptyline 25 mg tablet 25 mg PO DAILY 10/15/24 Unk nown History insulin glargine 100 unit/mL (3 unit subcut 10/15/24 U nknown History mL) subcutaneous pen (Lantus Solostar U-100 Insulin) levetiracetam 500 mg tablet 500 mg PO BID 10/15/24 Unk nown History oxycodone myristate 18 mg capsule 18 mg PO BID 5 Unknown History sprinkle extended release 12hr(DON'T CRUSH) (Xtampza ER) oxymetazoline 0.05 % nasal spray 2 spray intranasal BI D 10/15/24 Unknown History (12 Hour Nasal Relief [place]) rivaroxaban 20 mg tablet (Xarelto) 20 mg PO DAILY 09/17 08/11 Unknown History rosuvastatin 10 mg tablet 10 mg PO QHS 10/15/24 Unknow n History sitagliptin phosphate 100 mg 100 mg PO DAILY 10/15/24 Unknown History tablet (Januvia) tamsulosin 0.4 mg capsule 0.4 mg PO DAILY 10/15/24 Unk nown History Allergy/AdvReac Type Severity Reaction Status Date / Time Penicillins Allergy Mild Hives Verified 02/16/21 14:55 hydromorphone (From Dilaudid) Allergy Hallucinati Verified 02/16/21 14:55 ons ketorolac (From Toradol) Allergy Itching Verified 02/16/21 14:55 Family History Father Tuberculosis Surgical History History of back surgery Hx of laminectomy Social History household members: spouse housing: house Smoking Status: Never smoker Smokeless tobacco user: chewing tobacco alcohol intake: never what type of physical activity do you participate in: none do you feel safe at home: Yes ROS ROS Narrative General: Denies fever/chills HENT: Denies headache, denies stuffy nose, denies sore throat EYES: Denies changes in vision Resp: Denies cough, some chronic shortness of breath not worse than usual Cardiac: Denies chest pain GI: Denies abdominal pain, denies changes in bowel, denies nausea/vomiting : Denies changes in urination Extremity: Possibly some slight swelling in his ankles MSK: Denies weakness, has some chronic back pain not worse than usual Neuro: Denies any numbness/tingling Heme: Denies any bleeding or bruising Skin: Denies rashes Psychiatric: No complaints voiced Vital Signs Vital Signs Vital Signs: 10/15/24 11:14 10/15/24 11:19 10/15/24 13:25 Temperature 97.5 F L Temperature Source Oral Pulse Rate 67 73 Respiratory Rate 16 16 Respiratory Effort Normal Non-Labored Respiratory Pattern Normal Blood Pressure 162/87 H 156/78 H Blood Pressure Mean 112 104 Pulse Ox 95 97 Oxygen Delivery Method Room Air Room Air 10/15/24 14:55 Temperature 98.3 F Temperature Source Pulse Rate 74 Respiratory Rate 19 H Respiratory Effort Respiratory Pattern Blood Pressure 165/79 H Blood Pressure Mean 107 Pulse Ox 99 Oxygen Delivery Method Weight Weight: 89.2 kg Body Mass Index (BMI) 29.0 Physical Exam Narrative General: Alert, no apparent distress HEENT: Atraumatic, normocephalic Eyes: Anicteric, normal conjunctiva, extraocular movements grossly intact Neck: Supple Respiratory: Clear to auscultation bilaterally, normal respiratory effort Cardiovascular: Regular rate and rhythm GI: Soft, nontender, nondistended Extremities: No significant lower extremity edema Musculoskeletal: Moving all extremities Neuro: No overt focal neurological deficits Skin: No rashes appreciated Psych: Overall cooperative Results Lab / Micro Data 10/15/24 18:00 10/15/24 18:00 Labs: Laboratory Results - last 24 hr 10/15/24 13:19: POC Glucose 124 H 10/15/24 18:00: WBC 6.0, RBC 4.12 L, Hgb 12.6 L, Hct 39.9 L, MCV 96.8 H, MCH 30.6, MCHC 31.6 L, RDW Std Deviation 51.2 H, RDW Coeff of May 14.5, Plt Count 195, MPV 9.4, Immature Gran % (Auto) 0.500, Neut % (Auto) 65.3, Lymph % (Auto) 21.4, [place] % (Auto) 6.4, Eos % (Auto) 5.2 H, Baso % (Auto) 1.2 H, Absolute Neuts(auto) 3.9, Absolute Lymphs (auto) 1.28, Nucleated RBC % 0 Assessment & Plan Assessment/Plan (1) Failure to thrive: PLAN: Plan # Failure to thrive/inability to care for self -Family very concerned about patient's ability to care for self -PT/OT -Case management and social work consults # Chronic pain secondary to lumbar stenosis with multiple lumbar surgeries -Continue patient's home regimen while admitted #Type 2 diabetes mellitus -Glucose checks and sliding scale insulin -Unclear how much long-acting insulin patient is supposed to be on, patient verypoor historian -Will have glucose checks and sliding scale insulin all awaiting final med rec update, if patient persistently elevated can add scheduled long-acting empirically, [id number] glucose only 124 in the ED #Chronic BPH with obstruction -Continue home medications #Seizure disorder -Presently maintained on Keppra -Continue home regimen #Chronic anticoagulation -Unclear indication, awaiting final med reconciliation, was continued as a home med in the ED so we will continue #Gout -Continue home allopurinol #DVT ppx: Chronically anticoagulated on Xarelto Gemma Nava MD Charges/Coding Visit Charges Inpatient E&M: 26326 Init Hosp L1 10/15/24 7229 <Electronically signed by Gemma Nava MD> Cosigner Signature (if applicable): CC: Dr. Gemma Nava MD; Saulo Schultz MD~ Signed [facility] Work Phone: Hospital Discharge instructions Additional Instructions Follow-up with your PCP. Return for any other concerns.[facility] Work Phone: Patient's home Plan of care note* Visit Details Visit Type -SN SOC Discipline -Senior Care Problems Problem Description Start Date Status Goals Interve ntions Medication Education Disciplines: Skilled Services 10/30/2021 Active 1 goal linked to scheduled/document ed intervention 1 goal intervention scheduled/documente d in this visit Risk for skin breakdown Disciplines: Skilled Services 10/30/2021 Active 1 goal linked to scheduled/document ed intervention 1 goal intervention scheduled/documente d in this visit Physician Specific Parameters Disciplines: Skilled Services 10/30/2021 Active 1 goal linked to scheduled/document ed intervention 2 goal interventions scheduled/documente d in this visit Risk for Falls Disciplines: Skilled Services 10/30/2021 Active 1 goal linked to scheduled/document ed intervention 1 goal intervention scheduled/documente d in this visit Pain Disciplines: Skilled Services 10/30/2021 Active 1 goal linked to scheduled/document ed intervention 1 goal intervention scheduled/documente d in this visit Nutrition/Hydra tion Disciplines: Skilled Services 10/30/2021 Active 1 goal linked to scheduled/document ed intervention 1 goal intervention scheduled/documente d in this visit High Risk Medications Disciplines: Skilled Services 10/30/2021 Active 1 goal linked to scheduled/document ed intervention 1 goal intervention scheduled/documente d in this visit Discharge Disciplines: Skilled Services 10/30/2021 Active 1 goal linked to scheduled/document ed intervention 1 goal intervention scheduled/documente d in this visit Advance Directives Disciplines: Skilled Services 10/30/2021 Active 1 goal linked to scheduled/document ed intervention 1 goal intervention scheduled/documente d in this visit SN Diabetes Disciplines: SN 10/30/2021 Active 1 goal linked to scheduled/document ed intervention 2 goal interventions scheduled/documente d in this visit SN Learning Assessment Disciplines: SN 10/30/2021 Active 1 goal linked to scheduled/document ed intervention 1 goal intervention scheduled/documente d in this visit Goals Goal Associated Problem Outcome Goal Met? Visit Notes Patient/caregiver will demonstrate ability to obtain, store, identify and administer ordered medications, keep accurate medication list in home, and adhere to medication schedule Medication Education No Manage risk for skin breakdown Description: Patient/caregiver will verbalize and demonstrate understanding of the risks and measures to be taken to monitor and prevent skin breakdown by 12/28/21. Risk for skin breakdown No Patient to maintain parameters within physician-specified ranges Physician Specific Parameters No Manage Risk for falls Description: Patient/caregiver will verbalize knowledge of individualized fall prevention strategies by 12/28/21. Risk for Falls No Manage Pain Description: Patient/caregiver will verbalize knowledge and understanding of appropriate techniques to control pain, including pain medication and non-pharmacological techniques. Patient will verbalize or demonstrate an acceptable level of pain as evidenced by a pain score of 6/10 and improvement in ability to perform activities of daily living to be achieved by 12/28/21. Pain No Manage Nutrition/Hydration Description: Patient/caregiver will verbalize/demonstrate knowledge of prescribed diet and/or healthy nutrition. Nutrition/Hydration No Patient/caregiver will teach back high risk medication side effect and precaution education High Risk Medications No Manage discharge planning Description: Patient/caregiver will verbalize understanding of ongoing discharge plan provided related to disease management, arrangements for outpatient and/or community services, obtaining medications, supplies, and DME, as needed. Discharge No Patient/caregiver will make healthcare providers aware of Advance Directives Advance Directives No Improved management of diabetes Description: Improve diabetic management as evidenced by patient/caregiver able to teach back 3 diabetic management strategies by 12/28/21. SN Diabetes No Demonstrate understanding of education Description: Patient and/or caregiver will verbalize understanding of educational instruction provided. SN Learning Assessment No Interventions Intervention Associated Problem/Goal Status Variance Visit Notes Medication Education Description: Evaluate/instruct patient/caregiver on obtaining, storing, identifying and administering ordered medications as well as keeping accurate medication list in the home and adhereing to medication schedule Problem:Medication Education Goal:Patient/caregive r will demonstrate ability to obtain, store, identify and administer ordered medications, keep accurate medication list in home, and adhere to medication schedule Completed Patient instructed on importance of keeping accurate medication list in home, adhering to medication schedule and proper storage of medications. Instruct on the risks and measures to be taken to prevent skin breakdown Description: Patient's Jasper Score is: 18. A Jasper score <= to 18 indicates risk for skin breakdown. Problem:Risk for skin breakdown Goal:Manage risk for skin breakdown Completed patient instructed on maintaining skin integrity including: The need for every 1-2 hour turns, position changes, and maintaining activity as tolerated, Incontinence care, Routine skin care and Notifying [facility] clinician of changes to skin integrity Blood Sugar Description: Notify if blood sugar >250 for more than 2 consecutive days. Problem:Physician Specific Parameters Goal:Patient to maintain parameters within physician-specified ranges Completed SPO2 Description: Notify Dr. Cavazos if pulse ox is <92% at rest. Problem:Physician Specific Parameters Goal:Patient to maintain parameters within physician-specified ranges Completed Instruct on individual fall risk factors and strategies to prevent falls and injuries caused by falls. Problem:Risk for Falls Goal:Manage Risk for falls Completed SN: Patient instructed on Eliminating Environmental Hazards: Keep pathways clear, Keep pets out of pathways, Remove unsafe rugs, Move furniture from pathways, Keep rooms and walkways well lit and Keep frequently used items within reach Managing Impaired Functional Mobility: Use assistive device(s): Walker Managing Pain: Recommended pain medication schedule and management of side effects to minimize fall risk Reducing Medication Risks: Recommended medication schedule and instructed on management of side effects to minimize fall risk and injuries caused by falls Instruct on pain and instruct on strategies to control pain Problem:Pain Goal:Manage Pain Completed patient and caregiver instructed on techniques to control pain including Pharmacological measures and Non-Pharmacological measures; rest, positioning/elevation and use of thermal modalities, apply heat to affected area for the following prescribed frequency: as needed. Define patient s appetite/hydration status and implement strategies to improve compliance with prescribed diet and/or healthy nutrition. Problem:Nutrition/Hyd ration Goal:Manage Nutrition/Hydration Completed instructed patient and caregiver on implementing strategies to comply with prescribed diet Insulin-Instruct on high risk medication Problem:High Risk Medications Goal:Patient/caregive r will teach back high risk medication side effect and precaution education Completed patient and caregiver instructed on side effects of Insulin use including signs and symptoms of hypoglycemia such as increased weakness or shaking, moist skin, sweating, fast heartbeat, dizziness, sudden hunger, confusion, pale skin, numbness in mouth or tongue, irritability, nervousness, unsteadiness, nightmares, bad dreams, restless sleep and the importance of checking blood sugars as ordered by physician. Instruct on ongoing discharge plan Problem:Discharge Goal:Manage discharge planning Completed Ongoing Discharge plan: Discharge plan discussed with patient and caregiver including frequency and duration for home SN and plan for transition to: caregiver assistance. Determine patient's Advance Directive Status Description: Patient does have advance directives. Patient's Advance Directives determined to be available in EMR Healthcare DPOA and Living Will. Problem:Advance Directives Goal:Patient/caregive r will make healthcare providers aware of Advance Directives Completed Discussed Advance Directives with Patient and/or Caregiver. Referred patient to Home Care handbook for further information on Healthcare DPOA & Living Will. Instruct on diabetes disease process and management of chronic condition Description: Patient has new diagnosis of diabetes. Problem:SN Diabetes Goal:Improved management of diabetes Completed patient and caregiver assessed and instructed on diabetes disease process, monitoring blood sugars 3 a day before meals, how to use blood sugar meter and logging readings, how food and insulin affect blood sugar, diet education, recogonizing s/s of hypoglycemia and hyperglycemia and medications prescribed related to diabetes humalog and lantus as found in the diabetes self-care booklets. Ensure patient/caregiver has Living with Diabetes Booklet in home Description: SN to provide and refer to diabetes education booklet every visit. Problem:SN Diabetes Goal:Improved management of diabetes Completed Patient provided with diabetes self-care booklet. Instruct and educate on knowledge deficits Problem:SN Learning Assessment Goal:Demonstrate understanding of education Completed patient verbalize and/or demonstrate understanding of nursing education completed today. Education methods include: verbal cues and written instructions. Further education required to improve knowledge and compliance with fall prevention/home safety strategies, integumentary care management, medication management, nutrition, pain management and diabetes education. documented in this encounter [facility] Plan of care note* Visit Details Visit Type -OT EVAL Discipline -Occupational Therapy Problems Problem Description Start Date Status Goals Interve ntions Medication Education Disciplines: Skilled Services 10/30/2021 Active 1 goal linked to scheduled/docume nted intervention 1 goal intervention scheduled/documen desirae in this visit OT Referral Disciplines: Skilled Services 10/30/2021 Resolved on 10/31/2021 1 goal linked to scheduled/docume nted intervention 1 goal intervention scheduled/documen desirae in this visit Physician Specific Parameters Disciplines: Skilled Services 10/30/2021 Active 1 goal linked to scheduled/docume nted intervention 1 goal intervention scheduled/documen desirae in this visit Risk for Falls Disciplines: Skilled Services 10/30/2021 Active 1 goal linked to scheduled/docume nted intervention 1 goal intervention scheduled/documen desirae in this visit Pain Disciplines: Skilled Services 10/30/2021 Active 1 goal linked to scheduled/docume nted intervention 1 goal intervention scheduled/documen desirae in this visit Diabetic Foot Care Disciplines: Skilled Services 10/30/2021 Active 1 goal linked to scheduled/docume nted intervention 1 goal intervention scheduled/documen desirae in this visit Discharge Disciplines: Skilled Services 10/30/2021 Active 1 goal linked to scheduled/docume nted intervention 1 goal intervention scheduled/documen desirae in this visit OT Learning Assessment Disciplines: OT 10/31/2021 Active 1 goal linked to scheduled/docume nted intervention 1 goal intervention scheduled/documen desirae in this visit OT Cardiovascular Disease Disciplines: OT 10/31/2021 Active 1 goal linked to scheduled/docume nted intervention 1 goal intervention scheduled/documen desirae in this visit OT ADLs/IADLs Disciplines: OT 10/31/2021 Active 1 goal linked to scheduled/docume nted intervention 1 goal intervention scheduled/documen desirae in this visit OT Functional Transfers Disciplines: OT 10/31/2021 Active 1 goal linked to scheduled/docume nted intervention 1 goal intervention scheduled/documen desirae in this visit Goals Goal Associated Problem Outcome Goal Met? Visit Notes Patient/caregiver will demonstrate ability to obtain, store, identify and administer ordered medications, keep accurate medication list in home, and adhere to medication schedule Medication Education No Patient will be referred to additional discipline as needed OT Referral Completed Yes met. Patient to maintain parameters within physician-specified ranges Physician Specific Parameters No Manage Risk for falls Description: Patient/caregiver will verbalize knowledge of individualized fall prevention strategies by 12/28/21. Risk for Falls No Manage Pain Description: Patient/caregiver will verbalize knowledge and understanding of appropriate techniques to control pain, including pain medication and non-pharmacological techniques. Patient will verbalize or demonstrate an acceptable level of pain as evidenced by a pain score of 6/10 and improvement in ability to perform activities of daily living to be achieved by 12/28/21. Pain No Manage diabetic foot care Description: Patient/caregiver will demonstrate basic understanding of and compliance with diabetic self-care management as evidenced by verbalizing purpose of daily foot care and assessment by 12/28/21. Diabetic Foot Care No Manage discharge planning Description: Patient/caregiver will verbalize understanding of ongoing discharge plan provided related to disease management, arrangements for outpatient and/or community services, obtaining medications, supplies, and DME, as needed. Discharge No Demonstrate understanding of education Description: Patient and/or caregiver will understand educational instruction to be achieved by 11/21/21. OT Learning Assessment No Improve patient/caregiver management of cardiovascular post-surgical/non-surgical condition Description: Improve patient/caregiver management of cardiovascular non-surgical condition as evidenced by patient/caregiver able to verbalize, demonstrate, and teach back instruction by 11/21/21. OT Cardiovascular Disease No Improved ADLs/IADLs performance Description: Patient will verbalize understanding of instructions and demonstrate improved performance of feeding, grooming, upper body dressing, and lower body dressing to independence, and bathing to supervision, as evidenced by improved [place] ADL Index score to at least 70/100, to be achieved by 11/21/21. OT ADLs/IADLs No Improved Functional Transfers Description: Patient will demonstrate safe transfers to/from shower/tub with supervision assistance and minimal verbal cues with use of DME to be achieved by 11/14/21. OT Functional Transfers No Interventions Intervention Associated Problem/Goal Status Variance Visit Notes Medication Education Description: Evaluate/instruct patient/caregiver on obtaining, storing, identifying and administering ordered medications as well as keeping accurate medication list in the home and adhereing to medication schedule Problem:Medication Education Goal:Patient/caregive r will demonstrate ability to obtain, store, identify and administer ordered medications, keep accurate medication list in home, and adhere to medication schedule Completed Patient and Caregiver instructed on importance of keeping accurate medication list in home and adhering to medication schedule. OT evaluation and treatment Description: Evaluate and treat for the assessment of functional deficits and establishment of appropriate interventions and education to address: I/ADL training, functional transfers, DME/adaptive equipment recommendations, safety awareness, energy conservation and home safety and falls prevention recommendations. Problem:OT Referral Goal:Patient will be referred to additional discipline as needed Completed SPO2 Description: Notify Dr. Cavazos if pulse ox is <92% at rest. Problem:Physician Specific Parameters Goal:Patient to maintain parameters within physician-specified ranges Completed Instruct on individual fall risk factors and strategies to prevent falls and injuries caused by falls. Problem:Risk for Falls Goal:Manage Risk for falls Completed OT: Patient instructed on Managing Impaired Functional Mobility: Use assistive device(s): Walker and Caregiver to provide assist with: Ambulation, Steps, Transfers and ADL/IADLs. Recommended bed cane for side of bed to help with safety and bed transfers. Instruct on pain and instruct on strategies to control pain Problem:Pain Goal:Manage Pain Completed Patient and caregiver instructed on techniques to control pain including Pharmacological measures and Non-Pharmacological measures; rest, activity modification and positioning/elevation. Monitor lower extremities for skin lesions and educate on proper foot care Problem:Diabetic Foot Care Goal:Manage diabetic foot care Completed patient and caregiver instructed on diabetic foot care including daily skin inspection, wearing proper footwear/avoiding going barefoot, wash/dry feet thoroughly and applying moisturizer, avoiding between toes. Instruct on ongoing discharge plan Problem:Discharge Goal:Manage discharge planning Completed Ongoing Discharge plan: Discharge plan discussed with patient & caregiver, including frequency and duration for home OT and plan for transition to: live independently at home without ongoing services. Instruct and educate on knowledge deficits Problem:OT Learning Assessment Goal:Demonstrate understanding of education Completed Education methods include: verbal cues. Patient/Caregiver require further education to improve knowledge and compliance with cardiac disease management, fall prevention strategies, pain management, balance training, home safety, functional adl/iadl activity, functional transfers, home exercise program and discharge planning. Instruct on patient/caregiver management of cardiovascular post-surgical/non-bill gical condition Problem:OT Cardiovascular Disease Goal:Improve patient/caregiver management of cardiovascular post-surgical/non-bill gical condition Completed Patient/caregiver instructed on energy conservation and activity pacing. ADL/IADLs Training Problem:OT ADLs/IADLs Goal:Improved ADLs/IADLs performance Completed Instruct patient on energy conservation and safety and falls prevention and no adaptive equipment use to facilitate improved performance of donning socks with minimum assistance and verbal cues. Transfer Training Problem:OT Functional Transfers Goal:Improved Functional Transfers Completed Instruct patient on safe transfers and proper techniques including hand placement & positioning to perform to and from bedside commode with CGA assistance and verbal cues for safe technique. [facility] Visit Details Visit Type -SN ROUTINE Discipline -Senior Care Problems Problem Description Start Date Status Goals Interve ntions Medication Education Disciplines: Skilled Services 10/30/2021 Active 1 goal linked to scheduled/document ed intervention 1 goal intervention scheduled/documente d in this visit TOPOLOGY TEACHER Referral Disciplines: Skilled Services 10/30/2021 Active 1 goal linked to scheduled/document ed intervention 1 goal intervention scheduled/documente d in this visit Physician Specific Parameters Disciplines: Skilled Services 10/30/2021 Active 1 goal linked to scheduled/document ed intervention 1 goal intervention scheduled/documente d in this visit Risk for Falls Disciplines: Skilled Services 10/30/2021 Active 1 goal linked to scheduled/document ed intervention 1 goal intervention scheduled/documente d in this visit Pain Disciplines: Skilled Services 10/30/2021 Active 1 goal linked to scheduled/document ed intervention 1 goal intervention scheduled/documente d in this visit Diabetic Foot Care Disciplines: Skilled Services 10/30/2021 Active 1 goal linked to scheduled/document ed intervention 1 goal intervention scheduled/documente d in this visit Nutrition/Hydra tion Disciplines: Skilled Services 10/30/2021 Active 1 goal linked to scheduled/document ed intervention 1 goal intervention scheduled/documente d in this visit High Risk Medications Disciplines: Skilled Services 10/30/2021 Active 1 goal linked to scheduled/document ed intervention 1 goal intervention scheduled/documente d in this visit SN Diabetes Disciplines: SN 10/30/2021 Active 1 goal linked to scheduled/document ed intervention 2 goal interventions scheduled/documente d in this visit SN Learning Assessment Disciplines: SN 10/30/2021 Active 1 goal linked to scheduled/document ed intervention 1 goal intervention scheduled/documente d in this visit Goals Goal Associated Problem Outcome Goal Met? Visit Notes Patient/caregiver will demonstrate ability to obtain, store, identify and administer ordered medications, keep accurate medication list in home, and adhere to medication schedule Medication Education No Patient will be referred to additional discipline as needed TOPOLOGY TEACHER Referral No Patient to maintain parameters within physician-specified ranges Physician Specific Parameters No Manage Risk for falls Description: Patient/caregiver will verbalize knowledge of individualized fall prevention strategies by 12/28/21. Risk for Falls No Manage Pain Description: Patient/caregiver will verbalize knowledge and understanding of appropriate techniques to control pain, including pain medication and non-pharmacological techniques. Patient will verbalize or demonstrate an acceptable level of pain as evidenced by a pain score of 6/10 and improvement in ability to perform activities of daily living to be achieved by 12/28/21. Pain No Manage diabetic foot care Description: Patient/caregiver will demonstrate basic understanding of and compliance with diabetic self-care management as evidenced by verbalizing purpose of daily foot care and assessment by 12/28/21. Diabetic Foot Care No Manage Nutrition/Hydration Description: Patient/caregiver will verbalize/demonstrate knowledge of prescribed diet and/or healthy nutrition. Nutrition/Hydration No Patient/caregiver will teach back high risk medication side effect and precaution education High Risk Medications No Improved management of diabetes Description: Improve diabetic management as evidenced by patient/caregiver able to teach back 3 diabetic management strategies by 12/28/21. SN Diabetes No Demonstrate understanding of education Description: Patient and/or caregiver will verbalize understanding of educational instruction provided. SN Learning Assessment No Interventions Intervention Associated Problem/Goal Status Variance Visit Notes Medication Education Description: Evaluate/instruct patient/caregiver on obtaining, storing, identifying and administering ordered medications as well as keeping accurate medication list in the home and adhereing to medication schedule Problem:Medication Education Goal:Patient/caregive r will demonstrate ability to obtain, store, identify and administer ordered medications, keep accurate medication list in home, and adhere to medication schedule Completed Patient and Caregiver instructed on adhering to medication schedule. TOPOLOGY TEACHER evaluation and treatment Description: TOPOLOGY TEACHER Referral eval and treat for [facility]. Problem:TOPOLOGY TEACHER Referral Goal:Patient will be referred to additional discipline as needed Completed SPO2 Description: Notify Dr. Cavazos if pulse ox is <92% at rest. Problem:Physician Specific Parameters Goal:Patient to maintain parameters within physician-specified ranges Completed Instruct on individual fall risk factors and strategies to prevent falls and injuries caused by falls. Problem:Risk for Falls Goal:Manage Risk for falls Completed SN: Patient and Caregiver instructed on Managing Impaired Functional Mobility: Use assistive device(s): Walker and Caregiver to provide assist with: Ambulation, Steps, Transfers and ADL/IADLs Instruct on pain and instruct on strategies to control pain Problem:Pain Goal:Manage Pain Completed patient and caregiver instructed on techniques to control pain including Non-Pharmacological measures; positioning/elevation , mobility/therapeutic exercise, distraction and breathing/relaxation. Monitor lower extremities for skin lesions and educate on proper foot care Problem:Diabetic Foot Care Goal:Manage diabetic foot care Completed patient instructed on diabetic foot care including wearing proper footwear/avoiding going barefoot. Define patient s appetite/hydration status and implement strategies to improve compliance with prescribed diet and/or healthy nutrition. Problem:Nutrition/Hyd ration Goal:Manage Nutrition/Hydration Completed instructed patient and caregiver on implementing strategies to comply with prescribed diet, healthy nutrition and adequate hydration Insulin-Instruct on high risk medication Problem:High Risk Medications Goal:Patient/caregive r will teach back high risk medication side effect and precaution education Completed patient and caregiver instructed on side effects of Insulin use including signs and symptoms of hypoglycemia such as increased weakness or shaking, moist skin, sweating, fast heartbeat, dizziness, sudden hunger, confusion, pale skin, numbness in mouth or tongue, irritability, nervousness, unsteadiness, nightmares, bad dreams, restless sleep and the importance of checking blood sugars as ordered by physician. Instruct on diabetes disease process and management of chronic condition Description: Patient has new diagnosis of diabetes. Problem:SN Diabetes Goal:Improved management of diabetes Completed patient and caregiver assessed and instructed on diabetes disease process, monitoring blood sugars 3 x day a day, how to use blood sugar meter and logging readings, how food and insulin affect blood sugar, diet education, how to carb count, recogonizing s/s of hypoglycemia and hyperglycemia and medications prescribed related to diabetes as found in the diabetes self-care booklets. Ensure patient/caregiver has Living with Diabetes Booklet in home Description: SN to provide and refer to diabetes education booklet every visit. Problem:SN Diabetes Goal:Improved management of diabetes Completed Patient has diabetes self-care booklet. Instruct and educate on knowledge deficits Problem:SN Learning Assessment Goal:Demonstrate understanding of education Completed patient and caregiver verbalize and/or demonstrate understanding of nursing education completed today. Education methods include: verbal cues and written instructions. Further education required to improve knowledge and compliance with diabetic care management, fall prevention/home safety strategies, medication management and nutrition. [facility] Visit Details Visit Type -OT ROUTINE Discipline -Occupational Therapy Problems Problem Description Start Date Status Goals Interve ntions Physician Specific Parameters Disciplines: Skilled Services 10/30/2021 Active 1 goal linked to scheduled/document ed intervention 2 goal interventions scheduled/documente d in this visit Risk for Falls Disciplines: Skilled Services 10/30/2021 Active 1 goal linked to scheduled/document ed intervention 1 goal intervention scheduled/documente d in this visit Pain Disciplines: Skilled Services 10/30/2021 Active 1 goal linked to scheduled/document ed intervention 1 goal intervention scheduled/documente d in this visit Diabetic Foot Care Disciplines: Skilled Services 10/30/2021 Active 1 goal linked to scheduled/document ed intervention 1 goal intervention scheduled/documente d in this visit OT Learning Assessment Disciplines: OT 10/31/2021 Active 1 goal linked to scheduled/document ed intervention 1 goal intervention scheduled/documente d in this visit OT ADLs/IADLs Disciplines: OT 10/31/2021 Active 1 goal linked to scheduled/document ed intervention 1 goal intervention scheduled/documente d in this visit OT Functional Transfers Disciplines: OT 10/31/2021 Active 1 goal linked to scheduled/document ed intervention 1 goal intervention scheduled/documente d in this visit OT Balance Disciplines: OT 10/31/2021 Active 1 goal linked to scheduled/document ed intervention 1 goal intervention scheduled/documente d in this visit Goals Goal Associated Problem Outcome Goal Met? Visit Notes Patient to maintain parameters within physician-specified ranges Physician Specific Parameters No Manage Risk for falls Description: Patient/caregiver will verbalize knowledge of individualized fall prevention strategies by 12/28/21. Risk for Falls No Manage Pain Description: Patient/caregiver will verbalize knowledge and understanding of appropriate techniques to control pain, including pain medication and non-pharmacological techniques. Patient will verbalize or demonstrate an acceptable level of pain as evidenced by a pain score of 6/10 and improvement in ability to perform activities of daily living to be achieved by 12/28/21. Pain No Manage diabetic foot care Description: Patient/caregiver will demonstrate basic understanding of and compliance with diabetic self-care management as evidenced by verbalizing purpose of daily foot care and assessment by 12/28/21. Diabetic Foot Care No Demonstrate understanding of education Description: Patient and/or caregiver will understand educational instruction to be achieved by 11/21/21. OT Learning Assessment No Improved ADLs/IADLs performance Description: Patient will verbalize understanding of instructions and demonstrate improved performance of feeding, grooming, upper body dressing, and lower body dressing to independence, and bathing to supervision, as evidenced by improved [place] ADL Index score to at least 70/100, to be achieved by 11/21/21. OT ADLs/IADLs No Improved Functional Transfers Description: Patient will demonstrate safe transfers to/from shower/tub with supervision assistance and minimal verbal cues with use of DME to be achieved by 11/14/21. OT Functional Transfers No Improved Balance Description: Patient will demonstrate improved standing balance to meet functional goals as evidenced by standing for 5-10 minutes during ADLs with no loss of balance, to be achieved by 11/21/21. OT Balance No Interventions Intervention Associated Problem/Goal Status Variance Visit Notes Blood Sugar Description: Notify if blood sugar >250 for more than 2 consecutive days. Problem:Physician Specific Parameters Goal:Patient to maintain parameters within physician-specified ranges Completed SPO2 Description: Notify Dr. Cavazos if pulse ox is <92% at rest. Problem:Physician Specific Parameters Goal:Patient to maintain parameters within physician-specified ranges Completed Instruct on individual fall risk factors and strategies to prevent falls and injuries caused by falls. Problem:Risk for Falls Goal:Manage Risk for falls Completed OT: Patient instructed on Managing Impaired Functional Mobility: Use assistive device(s): Walker and Tub Bench and Caregiver to provide assist with: Ambulation and Steps, transfers, and ADLs/IADLs. Instruct on pain and instruct on strategies to control pain Problem:Pain Goal:Manage Pain Completed patient instructed on techniques to control pain including Non-Pharmacological measures; rest and use of DME/assistive devices. Monitor lower extremities for skin lesions and educate on proper foot care Problem:Diabetic Foot Care Goal:Manage diabetic foot care Completed patient instructed on diabetic foot care including daily skin inspection, wearing proper footwear/avoiding going barefoot and wash/dry feet thoroughly. Instruct and educate on knowledge deficits Problem:OT Learning Assessment Goal:Demonstrate understanding of education Completed Education methods include: verbal cues, visual cues and teach back. Patient/Caregiver require further education to improve knowledge and compliance with fall prevention strategies, pain management, balance training, functional adl/iadl activity and functional transfers. ADL/IADLs Training Problem:OT ADLs/IADLs Goal:Improved ADLs/IADLs performance Completed Instruct patient on stabilizing balance to perform task and development of daily habits and routines and no adaptive equipment use to facilite improved performance of upper body dressing and lower body dressing with supervision or setup assistance and verbal cues to don/doff socks and shirt sitting EOB. Encouraged pt to complete during regular routine to work to improve overall activity tolerance/stamina. Transfer Training Problem:OT Functional Transfers Goal:Improved Functional Transfers Completed Instruct patient on safe transfers and proper techniques including use of extended tub bench to perform to and from shower/tub with supervison assistance and verbal cues for technique to swing legs in and out of tub and to scoot on bench. 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 Balance Training Problem:OT Balance Goal:Improved Balance Completed Developed, implemented, and instructed patient on standing balance exercises. Instructed on standing with supervision and walker for support to build up strength and stamina. Pt stood for 6 minutes with one rest break, as well as walk to and from kitchen on second stand. documented in this [facility] Plan of care note* Visit Details Visit Type -SN ROUTINE Discipline -Senior Care Problems Problem Description Start Date Status Goals Interve ntions Medication Education Disciplines: Skilled Services 10/30/2021 Active 1 goal linked to scheduled/document ed intervention 1 goal intervention scheduled/documente d in this visit Risk for skin breakdown Disciplines: Skilled Services 10/30/2021 Active 1 goal linked to scheduled/document ed intervention 1 goal intervention scheduled/documente d in this visit Physician Specific Parameters Disciplines: Skilled Services 10/30/2021 Active 1 goal linked to scheduled/document ed intervention 2 goal interventions scheduled/documente d in this visit Risk for Falls Disciplines: Skilled Services 10/30/2021 Active 1 goal linked to scheduled/document ed intervention 1 goal intervention scheduled/documente d in this visit Pain Disciplines: Skilled Services 10/30/2021 Active 1 goal linked to scheduled/document ed intervention 1 goal intervention scheduled/documente d in this visit Diabetic Foot Care Disciplines: Skilled Services 10/30/2021 Active 1 goal linked to scheduled/document ed intervention 1 goal intervention scheduled/documente d in this visit Nutrition/Hydra tion Disciplines: Skilled Services 10/30/2021 Active 1 goal linked to scheduled/document ed intervention 1 goal intervention scheduled/documente d in this visit High Risk Medications Disciplines: Skilled Services 10/30/2021 Active 1 goal linked to scheduled/document ed intervention 1 goal intervention scheduled/documente d in this visit SN Diabetes Disciplines: SN 10/30/2021 Active 1 goal linked to scheduled/document ed intervention 2 goal interventions scheduled/documente d in this visit SN Learning Assessment Disciplines: SN 10/30/2021 Active 1 goal linked to scheduled/document ed intervention 1 goal intervention scheduled/documente d in this visit Goals Goal Associated Problem Outcome Goal Met? Visit Notes Patient/caregiver will demonstrate ability to obtain, store, identify and administer ordered medications, keep accurate medication list in home, and adhere to medication schedule Medication Education No Manage risk for skin breakdown Description: Patient/caregiver will verbalize and demonstrate understanding of the risks and measures to be taken to monitor and prevent skin breakdown by 12/28/21. Risk for skin breakdown No Patient to maintain parameters within physician-specified ranges Physician Specific Parameters No Manage Risk for falls Description: Patient/caregiver will verbalize knowledge of individualized fall prevention strategies by 12/28/21. Risk for Falls No Manage Pain Description: Patient/caregiver will verbalize knowledge and understanding of appropriate techniques to control pain, including pain medication and non-pharmacological techniques. Patient will verbalize or demonstrate an acceptable level of pain as evidenced by a pain score of 6/10 and improvement in ability to perform activities of daily living to be achieved by 12/28/21. Pain No Manage diabetic foot care Description: Patient/caregiver will demonstrate basic understanding of and compliance with diabetic self-care management as evidenced by verbalizing purpose of daily foot care and assessment by 12/28/21. Diabetic Foot Care No Manage Nutrition/Hydration Description: Patient/caregiver will verbalize/demonstrate knowledge of prescribed diet and/or healthy nutrition. Nutrition/Hydration No Patient/caregiver will teach back high risk medication side effect and precaution education High Risk Medications No Improved management of diabetes Description: Improve diabetic management as evidenced by patient/caregiver able to teach back 3 diabetic management strategies by 12/28/21. SN Diabetes No Demonstrate understanding of education Description: Patient and/or caregiver will verbalize understanding of educational instruction provided. SN Learning Assessment No Interventions Intervention Associated Problem/Goal Status Variance Visit Notes Medication Education Description: Evaluate/instruct patient/caregiver on obtaining, storing, identifying and administering ordered medications as well as keeping accurate medication list in the home and adhereing to medication schedule Problem:Medication Education Goal:Patient/caregive r will demonstrate ability to obtain, store, identify and administer ordered medications, keep accurate medication list in home, and adhere to medication schedule Completed Patient instructed on adhering to medication schedule. Instruct on the risks and measures to be taken to prevent skin breakdown Description: Patient's Jasper Score is: 18. A Jasper score <= to 18 indicates risk for skin breakdown. Problem:Risk for skin breakdown Goal:Manage risk for skin breakdown Completed patient instructed on maintaining skin integrity including: The need for every 1-2 hour turns, position changes, and maintaining activity as tolerated Blood Sugar Description: Notify if blood sugar >250 for more than 2 consecutive days. Problem:Physician Specific Parameters Goal:Patient to maintain parameters within physician-specified ranges Completed SPO2 Description: Notify Dr. Cavazos if pulse ox is <92% at rest. Problem:Physician Specific Parameters Goal:Patient to maintain parameters within physician-specified ranges Completed Instruct on individual fall risk factors and strategies to prevent falls and injuries caused by falls. Problem:Risk for Falls Goal:Manage Risk for falls Completed SN: Patient instructed on Managing Impaired Functional Mobility: Use assistive device(s): Walker and Caregiver to provide assist with: Ambulation, Transfers and ADL/IADLs Instruct on pain and instruct on strategies to control pain Problem:Pain Goal:Manage Pain Completed patient instructed on techniques to control pain including Non-Pharmacological measures; positioning/elevation and mobility/therapeutic exercise. Monitor lower extremities for skin lesions and educate on proper foot care Problem:Diabetic Foot Care Goal:Manage diabetic foot care Completed patient instructed on diabetic foot care including wearing proper footwear/avoiding going barefoot. Define patient s appetite/hydration status and implement strategies to improve compliance with prescribed diet and/or healthy nutrition. Problem:Nutrition/Hyd ration Goal:Manage Nutrition/Hydration Completed reinforced patient on implementing strategies to comply with prescribed diet, healthy nutrition and adequate hydration Insulin-Instruct on high risk medication Problem:High Risk Medications Goal:Patient/caregive r will teach back high risk medication side effect and precaution education Completed patient instructed on side effects of Insulin use including signs and symptoms of hypoglycemia such as increased weakness or shaking, moist skin, sweating, fast heartbeat, dizziness, sudden hunger, confusion, pale skin, numbness in mouth or tongue, irritability, nervousness, unsteadiness, nightmares, bad dreams, restless sleep and the importance of checking blood sugars as ordered by physician. Instruct on diabetes disease process and management of chronic condition Description: Patient has new diagnosis of diabetes. Problem:SN Diabetes Goal:Improved management of diabetes Completed patient assessed and instructed on how food and insulin affect blood sugar, diet education, recogonizing s/s of hypoglycemia and hyperglycemia and the importance of a regular meal schedule as found in the diabetes self-care booklets. Ensure patient/caregiver has Living with Diabetes Booklet in home Description: SN to provide and refer to diabetes education booklet every visit. Problem:SN Diabetes Goal:Improved management of diabetes Completed Patient has diabetes self-care booklet. Instruct and educate on knowledge deficits Problem:SN Learning Assessment Goal:Demonstrate understanding of education Completed patient verbalize and/or demonstrate understanding of nursing education completed today. Education methods include: verbal cues. Further education required to improve knowledge and compliance with diabetic care management, fall prevention/home safety strategies, medication management, nutrition, oxygen safety and pain management. [facility] Visit Details Visit Type -SN ROUTINE Discipline -Senior Care Problems Problem Description Start Date Status Goals Interve ntions Medication Education Disciplines: Skilled Services 10/30/2021 Active 1 goal linked to scheduled/document ed intervention 1 goal intervention scheduled/document ed in this visit TOPOLOGY TEACHER Referral Disciplines: Skilled Services 10/30/2021 Active 1 goal linked to scheduled/document ed intervention PT Referral Disciplines: Skilled Services 10/30/2021 Resolved on 11/10/2021 1 goal linked to scheduled/document ed intervention Risk for skin breakdown Disciplines: Skilled Services 10/30/2021 Resolved on 11/10/2021 1 goal linked to scheduled/document ed intervention 1 goal intervention scheduled/document ed in this visit Physician Specific Parameters Disciplines: Skilled Services 10/30/2021 Active 1 goal linked to scheduled/document ed intervention 2 goal interventions scheduled/document ed in this visit Risk for Falls Disciplines: Skilled Services 10/30/2021 Active 1 goal linked to scheduled/document ed intervention 1 goal intervention scheduled/document ed in this visit Pain Disciplines: Skilled Services 10/30/2021 Active 1 goal linked to scheduled/document ed intervention 1 goal intervention scheduled/document ed in this visit Diabetic Foot Care Disciplines: Skilled Services 10/30/2021 Active 1 goal linked to scheduled/document ed intervention 1 goal intervention scheduled/document ed in this visit Nutrition/Hydr ation Disciplines: Skilled Services 10/30/2021 Active 1 goal linked to scheduled/document ed intervention 1 goal intervention scheduled/document ed in this visit High Risk Medications Disciplines: Skilled Services 10/30/2021 Active 1 goal linked to scheduled/document ed intervention 1 goal intervention scheduled/document ed in this visit SN Diabetes Disciplines: SN 10/30/2021 Active 1 goal linked to scheduled/document ed intervention 1 goal intervention scheduled/document ed in this visit SN Learning Assessment Disciplines: SN 10/30/2021 Active 1 goal linked to scheduled/document ed intervention 1 goal intervention scheduled/document ed in this visit Goals Goal Associated Problem Outcome Goal Met? Visit Notes Patient/caregiver will demonstrate ability to obtain, store, identify and administer ordered medications, keep accurate medication list in home, and adhere to medication schedule Medication Education In Progress No Patient will be referred to additional discipline as needed TOPOLOGY TEACHER Referral Completed Yes Patient will be referred to additional discipline as needed PT Referral Completed Yes Manage risk for skin breakdown Description: Patient/caregiver will verbalize and demonstrate understanding of the risks and measures to be taken to monitor and prevent skin breakdown by 12/28/21. Risk for skin breakdown Completed Yes Patient to maintain parameters within physician-specified ranges Physician Specific Parameters In Progress No Manage Risk for falls Description: Patient/caregiver will verbalize knowledge of individualized fall prevention strategies by 12/28/21. Risk for Falls In Progress No Manage Pain Description: Patient/caregiver will verbalize knowledge and understanding of appropriate techniques to control pain, including pain medication and non-pharmacological techniques. Patient will verbalize or demonstrate an acceptable level of pain as evidenced by a pain score of 6/10 and improvement in ability to perform activities of daily living to be achieved by 12/28/21. Pain In Progress No Manage diabetic foot care Description: Patient/caregiver will demonstrate basic understanding of and compliance with diabetic self-care management as evidenced by verbalizing purpose of daily foot care and assessment by 12/28/21. Diabetic Foot Care In Progress No Manage Nutrition/Hydration Description: Patient/caregiver will verbalize/demonstrate knowledge of prescribed diet and/or healthy nutrition. Nutrition/Hydration In Progress No Patient/caregiver will teach back high risk medication side effect and precaution education High Risk Medications In Progress No Improved management of diabetes Description: Improve diabetic management as evidenced by patient/caregiver able to teach back 3 diabetic management strategies by 12/28/21. SN Diabetes In Progress No Demonstrate understanding of education Description: Patient and/or caregiver will verbalize understanding of educational instruction provided. SN Learning Assessment In Progress No Interventions Intervention Associated Problem/Goal Status Variance Visit Notes Medication Education Description: Evaluate/instruct patient/caregiver on obtaining, storing, identifying and administering ordered medications as well as keeping accurate medication list in the home and adhereing to medication schedule Problem:Medication Education Goal:Patient/caregive r will demonstrate ability to obtain, store, identify and administer ordered medications, keep accurate medication list in home, and adhere to medication schedule Completed Patient instructed on adhering to medication schedule. Instruct on the risks and measures to be taken to prevent skin breakdown Description: Patient's Jasper Score is: 18. A Jasper score <= to 18 indicates risk for skin breakdown. Problem:Risk for skin breakdown Goal:Manage risk for skin breakdown Completed patient instructed on maintaining skin integrity including: The need for every 1-2 hour turns, position changes, and maintaining activity as tolerated and Routine skin care Blood Sugar Description: Notify if blood sugar >250 for more than 2 consecutive days. Problem:Physician Specific Parameters Goal:Patient to maintain parameters within physician-specified ranges Completed SPO2 Description: Notify Dr. Cavazos if pulse ox is <92% at rest. Problem:Physician Specific Parameters Goal:Patient to maintain parameters within physician-specified ranges Completed Instruct on individual fall risk factors and strategies to prevent falls and injuries caused by falls. Problem:Risk for Falls Goal:Manage Risk for falls Completed SN: Patient instructed on Managing Impaired Functional Mobility: Use assistive device(s): Walker Instruct on pain and instruct on strategies to control pain Problem:Pain Goal:Manage Pain Completed patient instructed on techniques to control pain including Pharmacological measures and Non-Pharmacological measures; mobility/therapeutic exercise. Monitor lower extremities for skin lesions and educate on proper foot care Problem:Diabetic Foot Care Goal:Manage diabetic foot care Completed patient instructed on diabetic foot care including wearing proper footwear/avoiding going barefoot. Define patient s appetite/hydration status and implement strategies to improve compliance with prescribed diet and/or healthy nutrition. Problem:Nutrition/Hyd ration Goal:Manage Nutrition/Hydration Completed reinforced patient on implementing strategies to comply with prescribed diet and healthy nutrition Insulin-Instruct on high risk medication Problem:High Risk Medications Goal:Patient/caregive r will teach back high risk medication side effect and precaution education Completed patient and caregiver instructed on side effects of Insulin use including signs and symptoms of hypoglycemia such as increased weakness or shaking, moist skin, sweating, fast heartbeat, dizziness, sudden hunger, confusion, pale skin, numbness in mouth or tongue, irritability, nervousness, unsteadiness, nightmares, bad dreams, restless sleep and the importance of checking blood sugars as ordered by physician. Instruct on diabetes disease process and management of chronic condition Description: Patient has new diagnosis of diabetes. Problem:SN Diabetes Goal:Improved management of diabetes Completed patient assessed and instructed on diabetes disease process, how food and insulin affect blood sugar, diet education and recogonizing s/s of hypoglycemia and hyperglycemia as found in the diabetes self-care booklets. Instruct and educate on knowledge deficits Problem:SN Learning Assessment Goal:Demonstrate understanding of education Completed patient and caregiver verbalize and/or demonstrate understanding of nursing education completed today. Education methods include: verbal cues and written instructions. Further education required to improve knowledge and compliance with diabetic care management, fall prevention/home safety strategies, medication management, nutrition and pain management. 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 Therapy Problems Problem Description Start Date Status Goals Interve ntions Physician Specific Parameters Disciplines: Skilled Services 10/30/2021 Active 1 goal linked to scheduled/document ed intervention 1 goal intervention scheduled/document ed in this visit Risk for Falls Disciplines: Skilled Services 10/30/2021 Active 1 goal linked to scheduled/document ed intervention 1 goal intervention scheduled/document ed in this visit Pain Disciplines: Skilled Services 10/30/2021 Active 1 goal linked to scheduled/document ed intervention 1 goal intervention scheduled/document ed in this visit PT Impaired muscle performance and/or ROM Disciplines: PT 11/02/2021 Active 1 goal linked to scheduled/document ed intervention 1 goal intervention scheduled/document ed in this visit PT Impaired mobility Disciplines: PT 11/02/2021 Active 1 goal linked to scheduled/document ed intervention 1 goal intervention scheduled/document ed in this visit PT Impaired gait Disciplines: PT 11/02/2021 Active 1 goal linked to scheduled/document ed intervention 1 goal intervention scheduled/document ed in this visit Goals Goal Associated Problem Outcome Goal Met? Visit Notes Patient to maintain parameters within physician-specified ranges Physician Specific Parameters No Manage Risk for falls Description: Patient/caregiver will verbalize knowledge of individualized fall prevention strategies by 12/28/21. Risk for Falls No Manage Pain Description: Patient/caregiver will verbalize knowledge and understanding of appropriate techniques to control pain, including pain medication and non-pharmacological techniques. Patient will verbalize or demonstrate an acceptable level of pain as evidenced by a pain score of 6/10 and improvement in ability to perform activities of daily living to be achieved by 12/28/21. Pain No Improved Muscle Performance and/or ROM Description: LTG: Patient will demonstrate improved muscle performance to meet functional goals as evidenced by ability to tolerate 8 min of a standing activity, to be achieved by 11/28/21. . STG: Patient and/or caregiver will verbalize/demonstrate independence with home exercise program, to improve functional mobility, to be achieved by 11/14/21. PT Impaired muscle performance and/or ROM No Improved Transfers Description: LTG: Patient will demonstrate safe transfers to/from bed, chair, toilet, couch and car independently with AD, to be achieved by 11/28/21. PT Impaired mobility No Improved Gait Description: STG: Patient will demonstrate improved gait ability as evidenced by ambulation 100 feet with front wheeled walker with SBA assistance, in order to manuever throughout home , to be achieved by 11/14/21. LTG: Patient will demonstrate improved gait ability as evidenced by ambulation 150 feet with front wheeled walker independently with AD, to return to safe household and community ambulation, in order to return to plf, to be achieved by 11/28/21. . PT Impaired gait No Interventions Intervention Associated Problem/Goal Status Variance Visit Notes SPO2 Description: Notify Dr. Cavazos if pulse ox is <92% at rest. Problem:Physician Specific Parameters Goal:Patient to maintain parameters within physician-specified ranges Completed Instruct on individual fall risk factors and strategies to prevent falls and injuries caused by falls. Problem:Risk for Falls Goal:Manage Risk for falls Completed PT: Patient and Caregiver instructed on Managing Impaired Functional Mobility: Use assistive device(s): Walker and Caregiver to provide assist with: Ambulation, Steps and Transfers Managing Pain Instruct on pain and instruct on strategies to control pain Problem:Pain Goal:Manage Pain Completed patient instructed on techniques to control pain including Pharmacological measures and Non-Pharmacological measures; mobility/therapeutic exercise, distraction and use of DME/assistive devices. Physical Therapy Therapeutic Exercises Problem:PT Impaired muscle performance and/or ROM Goal:Improved Muscle Performance and/or ROM Completed patient instructed on strengthening exercises including: Supine ex: quad set, Gluet set, and ankle pumps. Seated ex: LAQ's, marches, and ankle pumps. x 10/ 2 sets. Vc's to slow down and to facilitate full ROM. patient instructed to perform home exercise program twice a day which included: above ex's. Physical Therapy Transfer Training Problem:PT Impaired mobility Goal:Improved Transfers Completed Transfer training and instruction to patient on safe transfers to and from bed with supervision. Physical Therapy Gait Training Problem:PT Impaired gait Goal:Improved Gait Completed Gait training and instruction to patient and caregiver on safe ambulation with front wheeled walker for 60 feet with supervision, with verbal cues to facilitate upright posture. [facility] Visit Details Visit Type -OT ROUTINE Discipline -Occupational Therapy Problems Problem Description Start Date Status Goals Interve ntions Physician Specific Parameters Disciplines: Skilled Services 10/30/2021 Active 1 goal linked to scheduled/documen desirae intervention 2 goal interventions scheduled/document ed in this visit Risk for Falls Disciplines: Skilled Services 10/30/2021 Active 1 goal linked to scheduled/documen desirae intervention 1 goal intervention scheduled/document ed in this visit Pain Disciplines: Skilled Services 10/30/2021 Active 1 goal linked to scheduled/documen desirae intervention 1 goal intervention scheduled/document ed in this visit Discharge Disciplines: Skilled Services 10/30/2021 Active 1 goal linked to scheduled/documen desirae intervention 1 goal intervention scheduled/document ed in this visit OT Learning Assessment Disciplines: OT 10/31/2021 Active 1 goal linked to scheduled/documen desirae intervention 1 goal intervention scheduled/document ed in this visit OT Cardiovascular Disease Disciplines: OT 10/31/2021 Active 1 goal linked to scheduled/documen desirae intervention 1 goal intervention scheduled/document ed in this visit OT ADLs/IADLs Disciplines: OT 10/31/2021 Active 1 goal linked to scheduled/documen desirae intervention 1 goal intervention scheduled/document ed in this visit OT Functional Transfers Disciplines: OT 10/31/2021 Active 1 goal linked to scheduled/documen desirae intervention 1 goal intervention scheduled/document ed in this visit OT Balance Disciplines: OT 10/31/2021 Active 1 goal linked to scheduled/documen desirae intervention 1 goal intervention scheduled/document ed in this visit Goals Goal Associated Problem Outcome Goal Met? Visit Notes Patient to maintain parameters within physician-specified ranges Physician Specific Parameters No Manage Risk for falls Description: Patient/caregiver will verbalize knowledge of individualized fall prevention strategies by 12/28/21. Risk for Falls No Manage Pain Description: Patient/caregiver will verbalize knowledge and understanding of appropriate techniques to control pain, including pain medication and non-pharmacological techniques. Patient will verbalize or demonstrate an acceptable level of pain as evidenced by a pain score of 6/10 and improvement in ability to perform activities of daily living to be achieved by 12/28/21. Pain No Manage discharge planning Description: Patient/caregiver will verbalize understanding of ongoing discharge plan provided related to disease management, arrangements for outpatient and/or community services, obtaining medications, supplies, and DME, as needed. Discharge No Demonstrate understanding of education Description: Patient and/or caregiver will understand educational instruction to be achieved by 11/21/21. OT Learning Assessment No Improve patient/caregiver management of cardiovascular post-surgical/non-surgical condition Description: Improve patient/caregiver management of cardiovascular non-surgical condition as evidenced by patient/caregiver able to verbalize, demonstrate, and teach back instruction by 11/21/21. OT Cardiovascular Disease No Improved ADLs/IADLs performance Description: Patient will verbalize understanding of instructions and demonstrate improved performance of feeding, grooming, upper body dressing, and lower body dressing to independence, and bathing to supervision, as evidenced by improved [place] ADL Index score to at least 70/100, to be achieved by 11/21/21. OT ADLs/IADLs No Improved Functional Transfers Description: Patient will demonstrate safe transfers to/from shower/tub with supervision assistance and minimal verbal cues with use of DME to be achieved by 11/14/21. OT Functional Transfers No Improved Balance Description: Patient will demonstrate improved standing balance to meet functional goals as evidenced by standing for 5-10 minutes during ADLs with no loss of balance, to be achieved by 11/21/21. OT Balance No Interventions Intervention Associated Problem/Goal Status Variance Visit Notes Blood Sugar Description: Notify if blood sugar >250 for more than 2 consecutive days. Problem:Physician Specific Parameters Goal:Patient to maintain parameters within physician-specified ranges Completed SPO2 Description: Notify Dr. Cavazos if pulse ox is <92% at rest. Problem:Physician Specific Parameters Goal:Patient to maintain parameters within physician-specified ranges Completed Instruct on individual fall risk factors and strategies to prevent falls and injuries caused by falls. Problem:Risk for Falls Goal:Manage Risk for falls Completed OT: Patient instructed on Managing Impaired Functional Mobility: Use assistive device(s): Walker and Caregiver to provide assist with: Ambulation, Transfers and ADL/IADLs Managing Pain Instruct on pain and instruct on strategies to control pain Problem:Pain Goal:Manage Pain Completed patient instructed on techniques to control pain including Pharmacological measures and Non-Pharmacological measures; rest, positioning/elevatio n and adaptive techniques - sitting to complete tasks when able. Instruct on ongoing discharge plan Problem:Discharge Goal:Manage discharge planning Completed Ongoing Discharge plan: Discharge plan discussed with patient including frequency and duration for home OT including plan for d/c next visit and plan for transition to: caregiver assistance. Instruct and educate on knowledge deficits Problem:OT Learning Assessment Goal:Demonstrate understanding of education Completed Education methods include: verbal cues, visual cues and teach back. Patient/Caregiver require further education to improve knowledge and compliance with cardiac disease management, fall prevention strategies, pain management, balance training, functional adl/iadl activity and discharge planning. Instruct on patient/caregiver management of cardiovascular post-surgical/non-s urgical condition Problem:OT Cardiovascular Disease Goal:Improve patient/caregiver management of cardiovascular post-surgical/non-s urgical condition Completed Patient/caregiver instructed on energy conservation and activity pacing. ADL/IADLs Training Problem:OT ADLs/IADLs Goal:Improved ADLs/IADLs performance Completed Instruct patient on compensatory strategies and energy conservation and no adaptive equipment use to facilite improved performance of upper body dressing, lower body dressing, bathing and meal prep with supervision or setup assistance and minimum assistance and verbal cues. Pt declines bathing activity today d/t does not want to address shower --reports he had a lot of pain after shower transfer last visit and doesn't want to attempt again even with DME. Pt reports dressing and sponge bath has been going fine, but would like to be able to stand at stove to ta an egg, discussed use of stool or chair at stove to sit on to rest as needed --pt agreeable to add goal and address next visit. Transfer Training Problem:OT Functional Transfers Goal:Improved Functional Transfers Completed with variance Caregiver unwilling Pt reports he had too much pain after shower transfer last visit and is not doing again, states doctor told him not to attempt again until he was done with therapy. Balance Training Problem:OT Balance Goal:Improved Balance Completed Developed, implemented, and instructed patient on standing balance exercises. Instructed on reaching in standing for reaching task with right hand pt declined with left d/t doesn't want to agrivate his carpel tunnel. Pt also completed reaching task to get glass out of cupboard and water out of refrigerator. Instructed patient to perform exercises daily 10 reps each exercise with assistance. HEP program developed. 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 Problems Problem Description Start Date Status Goals Interve ntions Physician Specific Parameters Disciplines: Skilled Services 10/30/2021 Active 1 goal linked to scheduled/document ed intervention 1 goal intervention scheduled/document ed in this visit Risk for Falls Disciplines: Skilled Services 10/30/2021 Active 1 goal linked to scheduled/document ed intervention 1 goal intervention scheduled/document ed in this visit Pain Disciplines: Skilled Services 10/30/2021 Active 1 goal linked to scheduled/document ed intervention 1 goal intervention scheduled/document ed in this visit PT Impaired muscle performance and/or ROM Disciplines: PT 11/02/2021 Active 1 goal linked to scheduled/document ed intervention 1 goal intervention scheduled/document ed in this visit PT Impaired mobility Disciplines: PT 11/02/2021 Active 1 goal linked to scheduled/document ed intervention 1 goal intervention scheduled/document ed in this visit PT Impaired gait Disciplines: PT 11/02/2021 Active 1 goal linked to scheduled/document ed intervention 1 goal intervention scheduled/document ed in this visit Goals Goal Associated Problem Outcome Goal Met? Visit Notes Patient to maintain parameters within physician-specified ranges Physician Specific Parameters No Manage Risk for falls Description: Patient/caregiver will verbalize knowledge of individualized fall prevention strategies by 12/28/21. Risk for Falls No Manage Pain Description: Patient/caregiver will verbalize knowledge and understanding of appropriate techniques to control pain, including pain medication and non-pharmacological techniques. Patient will verbalize or demonstrate an acceptable level of pain as evidenced by a pain score of 6/10 and improvement in ability to perform activities of daily living to be achieved by 12/28/21. Pain No Improved Muscle Performance and/or ROM Description: LTG: Patient will demonstrate improved muscle performance to meet functional goals as evidenced by ability to tolerate 8 min of a standing activity, to be achieved by 11/28/21. . STG: Patient and/or caregiver will verbalize/demonstrate independence with home exercise program, to improve functional mobility, to be achieved by 11/14/21. PT Impaired muscle performance and/or ROM No Improved Transfers Description: LTG: Patient will demonstrate safe transfers to/from bed, chair, toilet, couch and car independently with AD, to be achieved by 11/28/21. PT Impaired mobility No Improved Gait Description: STG: Patient will demonstrate improved gait ability as evidenced by ambulation 100 feet with front wheeled walker with SBA assistance, in order to manuever throughout home , to be achieved by 11/14/21. LTG: Patient will demonstrate improved gait ability as evidenced by ambulation 150 feet with front wheeled walker independently with AD, to return to safe household and community ambulation, in order to return to plf, to be achieved by 11/28/21. . PT Impaired gait No Interventions Intervention Associated Problem/Goal Status Variance Visit Notes SPO2 Description: Notify Dr. Cavazos if pulse ox is <92% at rest. Problem:Physician Specific Parameters Goal:Patient to maintain parameters within physician-specified ranges Completed Instruct on individual fall risk factors and strategies to prevent falls and injuries caused by falls. Problem:Risk for Falls Goal:Manage Risk for falls Completed PT: Patient instructed on Managing Impaired Functional Mobility: Use assistive device(s): Walker and Caregiver to provide assist with: Ambulation, Steps, Transfers and ADL/IADLs Managing Pain Instruct on pain and instruct on strategies to control pain Problem:Pain Goal:Manage Pain Completed patient instructed on techniques to control pain including Pharmacological measures and Non-Pharmacological measures; mobility/therapeutic exercise, distraction, use of DME/assistive devices and use of thermal modalities, apply ice and heat to affected area. Physical Therapy Therapeutic Exercises Problem:PT Impaired muscle performance and/or ROM Goal:Improved Muscle Performance and/or ROM Completed patient instructed on strengthening exercises including: Supine ex: heel slides, supine abd/ add, quad set, Gluet set, and ankle pumps. Seated ex: LAQ's, marches, and ankle pumps. x 10/ 2 sets. Vc's to slow down and to facilitate full ROM.. patient instructed to perform home exercise program twice a day which included: above ex's. Physical Therapy Transfer Training Problem:PT Impaired mobility Goal:Improved Transfers Completed Transfer training and instruction to patient on safe transfers to and from bed and chair with independent. Physical Therapy Gait Training Problem:PT Impaired gait Goal:Improved Gait Completed Gait training and instruction to patient on safe ambulation with front wheeled walker for 100 feet with supervision, with verbal cues to slow down and to facilitate upright posture. [facility] Visit Details Visit Type -SN ROUTINE Discipline -Senior Care Problems Problem Description Start Date Status Goals Interve ntions Medication Education Disciplines: Skilled Services 10/30/2021 Active 1 goal linked to scheduled/document ed intervention 1 goal intervention scheduled/documente d in this visit Physician Specific Parameters Disciplines: Skilled Services 10/30/2021 Active 1 goal linked to scheduled/document ed intervention 1 goal intervention scheduled/documente d in this visit Pain Disciplines: Skilled Services 10/30/2021 Active 1 goal linked to scheduled/document ed intervention 1 goal intervention scheduled/documente d in this visit Diabetic Foot Care Disciplines: Skilled Services 10/30/2021 Active 1 goal linked to scheduled/document ed intervention 1 goal intervention scheduled/documente d in this visit Nutrition/Hydra tion Disciplines: Skilled Services 10/30/2021 Active 1 goal linked to scheduled/document ed intervention 1 goal intervention scheduled/documente d in this visit High Risk Medications Disciplines: Skilled Services 10/30/2021 Active 1 goal linked to scheduled/document ed intervention 1 goal intervention scheduled/documente d in this visit Discharge Disciplines: Skilled Services 10/30/2021 Active 1 goal linked to scheduled/document ed intervention 1 goal intervention scheduled/documente d in this visit SN Diabetes Disciplines: SN 10/30/2021 Active 1 goal linked to scheduled/document ed intervention 1 goal intervention scheduled/documente d in this visit SN Learning Assessment Disciplines: SN 10/30/2021 Active 1 goal linked to scheduled/document ed intervention 1 goal intervention scheduled/documente d in this visit Goals Goal Associated Problem Outcome Goal Met? Visit Notes Patient/caregiver will demonstrate ability to obtain, store, identify and administer ordered medications, keep accurate medication list in home, and adhere to medication schedule Medication Education No Patient to maintain parameters within physician-specified ranges Physician Specific Parameters No Manage Pain Description: Patient/caregiver will verbalize knowledge and understanding of appropriate techniques to control pain, including pain medication and non-pharmacological techniques. Patient will verbalize or demonstrate an acceptable level of pain as evidenced by a pain score of 6/10 and improvement in ability to perform activities of daily living to be achieved by 12/28/21. Pain No Manage diabetic foot care Description: Patient/caregiver will demonstrate basic understanding of and compliance with diabetic self-care management as evidenced by verbalizing purpose of daily foot care and assessment by 12/28/21. Diabetic Foot Care No Manage Nutrition/Hydration Description: Patient/caregiver will verbalize/demonstrate knowledge of prescribed diet and/or healthy nutrition. Nutrition/Hydration No Patient/caregiver will teach back high risk medication side effect and precaution education High Risk Medications No Manage discharge planning Description: Patient/caregiver will verbalize understanding of ongoing discharge plan provided related to disease management, arrangements for outpatient and/or community services, obtaining medications, supplies, and DME, as needed. Discharge No Improved management of diabetes Description: Improve diabetic management as evidenced by patient/caregiver able to teach back 3 diabetic management strategies by 12/28/21. SN Diabetes No Demonstrate understanding of education Description: Patient and/or caregiver will verbalize understanding of educational instruction provided. SN Learning Assessment No Interventions Intervention Associated Problem/Goal Status Variance Visit Notes Medication Education Description: Evaluate/instruct patient/caregiver on obtaining, storing, identifying and administering ordered medications as well as keeping accurate medication list in the home and adhereing to medication schedule Problem:Medication Education Goal:Patient/caregive r will demonstrate ability to obtain, store, identify and administer ordered medications, keep accurate medication list in home, and adhere to medication schedule Completed Patient and Caregiver instructed on adhering to medication schedule and Medication, route, dose, frequency, purpose, and side effects of Xtampza. SPO2 Description: Notify Dr. Cavazos if pulse ox is <92% at rest. Problem:Physician Specific Parameters Goal:Patient to maintain parameters within physician-specified ranges Completed Instruct on pain and instruct on strategies to control pain Problem:Pain Goal:Manage Pain Completed patient instructed on techniques to control pain including Pharmacological measures and Non-Pharmacological measures; rest, positioning/elevation, mobility/therapeutic exercise and distraction. Monitor lower extremities for skin lesions and educate on proper foot care Problem:Diabetic Foot Care Goal:Manage diabetic foot care Completed patient instructed on diabetic foot care including wearing proper footwear/avoiding going barefoot. Define patient s appetite/hydration status and implement strategies to improve compliance with prescribed diet and/or healthy nutrition. Problem:Nutrition/Hyd ration Goal:Manage Nutrition/Hydration Completed reinforced patient and caregiver on implementing strategies to comply with prescribed diet, healthy nutrition and adequate hydration Insulin-Instruct on high risk medication Problem:High Risk Medications Goal:Patient/caregive r will teach back high risk medication side effect and precaution education Completed patient and caregiver instructed on side effects of Insulin use including signs and symptoms of hypoglycemia such as increased weakness or shaking, moist skin, sweating, fast heartbeat, dizziness, sudden hunger, confusion, pale skin, numbness in mouth or tongue, irritability, nervousness, unsteadiness, nightmares, bad dreams, restless sleep and the importance of checking blood sugars as ordered by physician. Instruct on ongoing discharge plan Problem:Discharge Goal:Manage discharge planning Completed Ongoing Discharge plan: Discharge plan discussed with patient and caregiver including frequency and duration for home SN and plan for transition to: live at home with family assistance. Instruct on diabetes disease process and management of chronic condition Description: Patient has new diagnosis of diabetes. Problem:SN Diabetes Goal:Improved management of diabetes Completed patient and caregiver assessed and reinforced on diabetes disease process, how food and insulin affect blood sugar, diet education and recogonizing s/s of hypoglycemia and hyperglycemia as found in the diabetes self-care booklets. Instruct and educate on knowledge deficits Problem:SN Learning Assessment Goal:Demonstrate understanding of education Completed patient and caregiver verbalize and/or demonstrate understanding of nursing education completed today. Education methods include: verbal cues, written instructions and visual cues. Further education required to improve knowledge and compliance with diabetic care management, fall prevention/home safety strategies, medication management, nutrition and pain management. documented in this encounter [facility] Plan of care note* Visit Details Visit Type -OT DISC DC W VIS IT Discipline -Occupational Therapy Problems Problem Description Start Date Status Goals Interve ntions Medication Education Disciplines: Skilled Services 10/30/2021 Active 1 goal linked to scheduled/docume nted intervention 1 goal intervention scheduled/documen desirae in this visit Physician Specific Parameters Disciplines: Skilled Services 10/30/2021 Active 1 goal linked to scheduled/docume nted intervention 2 goal interventions scheduled/documen desirae in this visit Risk for Falls Disciplines: Skilled Services 10/30/2021 Active 1 goal linked to scheduled/docume nted intervention 1 goal intervention scheduled/documen desirae in this visit Pain Disciplines: Skilled Services 10/30/2021 Active 1 goal linked to scheduled/docume nted intervention 1 goal intervention scheduled/documen desirae in this visit Diabetic Foot Care Disciplines: Skilled Services 10/30/2021 Active 1 goal linked to scheduled/docume nted intervention 1 goal intervention scheduled/documen desirae in this visit Discharge Disciplines: Skilled Services 10/30/2021 Active 1 goal linked to scheduled/docume nted intervention 1 goal intervention scheduled/documen desirae in this visit OT Learning Assessment Disciplines: OT 10/31/2021 Resolved on 11/16/2021 1 goal linked to scheduled/docume nted intervention 1 goal intervention scheduled/documen desirae in this visit OT Cardiovascular Disease Disciplines: OT 10/31/2021 Resolved on 11/16/2021 1 goal linked to scheduled/docume nted intervention 1 goal intervention scheduled/documen desirae in this visit OT ADLs/IADLs Disciplines: OT 10/31/2021 Resolved on 11/16/2021 1 goal linked to scheduled/docume nted intervention 1 goal intervention scheduled/documen desirae in this visit OT Functional Transfers Disciplines: OT 10/31/2021 Resolved on 11/16/2021 1 goal linked to scheduled/docume nted intervention 1 goal intervention scheduled/documen desirae in this visit OT Balance Disciplines: OT 10/31/2021 Resolved on 11/16/2021 1 goal linked to scheduled/docume nted intervention 1 goal intervention scheduled/documen desirae in this visit Goals Goal Associated Problem Outcome Goal Met? Visit Notes Patient/caregiver will demonstrate ability to obtain, store, identify and administer ordered medications, keep accurate medication list in home, and adhere to medication schedule Medication Education No Patient to maintain parameters within physician-specified ranges Physician Specific Parameters No Manage Risk for falls Description: Patient/caregiver will verbalize knowledge of individualized fall prevention strategies by 12/28/21. Risk for Falls No Manage Pain Description: Patient/caregiver will verbalize knowledge and understanding of appropriate techniques to control pain, including pain medication and non-pharmacological techniques. Patient will verbalize or demonstrate an acceptable level of pain as evidenced by a pain score of 6/10 and improvement in ability to perform activities of daily living to be achieved by 12/28/21. Pain No Manage diabetic foot care Description: Patient/caregiver will demonstrate basic understanding of and compliance with diabetic self-care management as evidenced by verbalizing purpose of daily foot care and assessment by 12/28/21. Diabetic Foot Care No Manage discharge planning Description: Patient/caregiver will verbalize understanding of ongoing discharge plan provided related to disease management, arrangements for outpatient and/or community services, obtaining medications, supplies, and DME, as needed. Discharge No Demonstrate understanding of education Description: Patient and/or caregiver will understand educational instruction to be achieved by 11/21/21. OT Learning Assessment Completed Yes met. Improve patient/caregiver management of cardiovascular post-surgical/non-surgical condition Description: Improve patient/caregiver management of cardiovascular non-surgical condition as evidenced by patient/caregiver able to verbalize, demonstrate, and teach back instruction by 11/21/21. OT Cardiovascular Disease Completed Yes met. Improved ADLs/IADLs performance Description: Patient will verbalize understanding of instructions and demonstrate improved performance of feeding, grooming, upper body dressing, and lower body dressing to independence, and bathing to supervision, as evidenced by improved [place] ADL Index score to at least 70/100, to be achieved by 11/21/21. OT ADLs/IADLs Completed Yes met. Improved Functional Transfers Description: Patient will demonstrate safe transfers to/from shower/tub with supervision assistance and minimal verbal cues with use of DME to be achieved by 11/14/21. OT Functional Transfers Completed Yes met. Improved Balance Description: Patient will demonstrate improved standing balance to meet functional goals as evidenced by standing for 5-10 minutes during ADLs with no loss of balance, to be achieved by 11/21/21. OT Balance Completed Yes met. Interventions Intervention Associated Problem/Goal Status Variance Visit Notes Medication Education Description: Evaluate/instruct patient/caregiver on obtaining, storing, identifying and administering ordered medications as well as keeping accurate medication list in the home and adhereing to medication schedule Problem:Medication Education Goal:Patient/caregive r will demonstrate ability to obtain, store, identify and administer ordered medications, keep accurate medication list in home, and adhere to medication schedule Completed Patient instructed on importance of keeping accurate medication list in home and adhering to medication schedule. Blood Sugar Description: Notify if blood sugar >250 for more than 2 consecutive days. Problem:Physician Specific Parameters Goal:Patient to maintain parameters within physician-specified ranges Completed SPO2 Description: Notify Dr. Cavazos if pulse ox is <92% at rest. Problem:Physician Specific Parameters Goal:Patient to maintain parameters within physician-specified ranges Completed Instruct on individual fall risk factors and strategies to prevent falls and injuries caused by falls. Problem:Risk for Falls Goal:Manage Risk for falls Completed OT: Patient instructed on Managing Impaired Functional Mobility: Use assistive device(s): Walker and Tub Bench or Tub Seat; and Caregiver to provide assist with: Steps, Shower Transfers and ADL/IADLs. Managing Pain Instruct on pain and instruct on strategies to control pain Problem:Pain Goal:Manage Pain Completed Patient instructed on techniques to control pain including Pharmacological measures and Non-Pharmacological measures; rest, positioning/elevation, mobility/therapeutic exercise and use of DME/assistive devices. Monitor lower extremities for skin lesions and educate on proper foot care Problem:Diabetic Foot Care Goal:Manage diabetic foot care Completed Patient instructed on diabetic foot care including daily skin inspection, wearing proper footwear/avoiding going barefoot, wash/dry feet thoroughly and applying moisturizer, avoiding between toes. Instruct on ongoing discharge plan Problem:Discharge Goal:Manage discharge planning Completed Ongoing Discharge plan: Discharge plan discussed with patient including frequency and duration for home OT, including discharge from OT today and plan to continue with PT & SN, and plan for transition to: live independently at home without ongoing services. Instruct and educate on knowledge deficits Problem:OT Learning Assessment Goal:Demonstrate understanding of education Completed Education methods include: verbal cues. Patient/Caregiver provided with education to improve knowledge and compliance with cardiac disease management, fall prevention strategies, orthopedic condition management, pain management, balance training, home safety, functional adl/iadl activity, functional transfers, home exercise program and discharge planning. Instruct on patient/caregiver management of cardiovascular post-surgical/non-bill gical condition Problem:OT Cardiovascular Disease Goal:Improve patient/caregiver management of cardiovascular post-surgical/non-bill gical condition Completed Patient/caregiver instructed on energy conservation, activity pacing, self- monitoring of temperature/blood pressure/heart rate and instructed on when to call provider. ADL/IADLs Training Problem:OT ADLs/IADLs Goal:Improved ADLs/IADLs performance Completed Instructed patient to continue to do as much of his ADLs on his own as he can. [place] ADL Index score 85/100. Transfer Training Problem:OT Functional Transfers Goal:Improved Functional Transfers Completed Patient able to complete tub/shower combo transfer with use of tub transfer bench, but declines to complete further until his legs are stronger. He and his understand how to complete this transfer for when they are ready to do it. Recommended toilet safety frame for toilet in bathroom off of patient's room, near laundry area, to provide handles to assist patient with toilet transfers. Balance Training Problem:OT Balance Goal:Improved Balance Completed Patient able to stand for at least 6 minutes at a time during ADLs/IADLs. 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 Problems Problem Description Start Date Status Goals Interve ntions Physician Specific Parameters Disciplines: Skilled Services 10/30/2021 Active 1 goal linked to scheduled/document ed intervention 1 goal intervention scheduled/document ed in this visit Risk for Falls Disciplines: Skilled Services 10/30/2021 Active 1 goal linked to scheduled/document ed intervention 1 goal intervention scheduled/document ed in this visit Pain Disciplines: Skilled Services 10/30/2021 Active 1 goal linked to scheduled/document ed intervention 1 goal intervention scheduled/document ed in this visit PT Impaired muscle performance and/or ROM Disciplines: PT 11/02/2021 Active 1 goal linked to scheduled/document ed intervention 1 goal intervention scheduled/document ed in this visit PT Impaired mobility Disciplines: PT 11/02/2021 Active 1 goal linked to scheduled/document ed intervention 1 goal intervention scheduled/document ed in this visit PT Impaired gait Disciplines: PT 11/02/2021 Active 2 goals linked to scheduled/document ed interventions 2 goal interventions scheduled/document ed in this visit Goals Goal Associated Problem Outcome Goal Met? Visit Notes Patient to maintain parameters within physician-specified ranges Physician Specific Parameters No Manage Risk for falls Description: Patient/caregiver will verbalize knowledge of individualized fall prevention strategies by 12/28/21. Risk for Falls No Manage Pain Description: Patient/caregiver will verbalize knowledge and understanding of appropriate techniques to control pain, including pain medication and non-pharmacological techniques. Patient will verbalize or demonstrate an acceptable level of pain as evidenced by a pain score of 6/10 and improvement in ability to perform activities of daily living to be achieved by 12/28/21. Pain No Improved Muscle Performance and/or ROM Description: LTG: Patient will demonstrate improved muscle performance to meet functional goals as evidenced by ability to tolerate 8 min of a standing activity, to be achieved by 11/28/21. . STG: Patient and/or caregiver will verbalize/demonstrate independence with home exercise program, to improve functional mobility, to be achieved by 11/14/21. PT Impaired muscle performance and/or ROM No Improved Transfers Description: LTG: Patient will demonstrate safe transfers to/from bed, chair, toilet, couch and car independently with AD, to be achieved by 11/28/21. PT Impaired mobility No Improved Stair Climbing Description: LTG: Patient will demonstrate improved stair negotiation as evidenced by ascend/descend 4 steps with railing with supervision, to safely access community and exit home, to be achieved by 11/28/21. . PT Impaired gait No Improved Gait Description: STG: Patient will demonstrate improved gait ability as evidenced by ambulation 100 feet with front wheeled walker with SBA assistance, in order to manuever throughout home , to be achieved by 11/14/21. LTG: Patient will demonstrate improved gait ability as evidenced by ambulation 150 feet with front wheeled walker independently with AD, to return to safe household and community ambulation, in order to return to plf, to be achieved by 11/28/21. . PT Impaired gait No Interventions Intervention Associated Problem/Goal Status Variance Visit Notes SPO2 Description: Notify Dr. Cavazos if pulse ox is <92% at rest. Problem:Physician Specific Parameters Goal:Patient to maintain parameters within physician-specified ranges Completed Instruct on individual fall risk factors and strategies to prevent falls and injuries caused by falls. Problem:Risk for Falls Goal:Manage Risk for falls Completed PT: Patient instructed on Managing Impaired Functional Mobility: Use assistive device(s): Walker and Caregiver to provide assist with: Ambulation and Steps Managing Pain Instruct on pain and instruct on strategies to control pain Problem:Pain Goal:Manage Pain Completed patient instructed on techniques to control pain including Pharmacological measures and Non-Pharmacological measures; mobility/therapeutic exercise, distraction and use of DME/assistive devices. Physical Therapy Therapeutic Exercises Problem:PT Impaired muscle performance and/or ROM Goal:Improved Muscle Performance and/or ROM Completed patient instructed on strengthening exercises including: Bilateral LE standing ex's at countertop: x 10 / 1 set ( Marching, hip abd, hip ext, HS curls, heel to toe ). with verbal cues slow down . patient instructed to perform home exercise program twice a day which included: above ex's. Physical Therapy Transfer Training Problem:PT Impaired mobility Goal:Improved Transfers Completed Transfer training and instruction to patient on safe transfers to and from chair with modified independent. Physical Therapy Stair Training Problem:PT Impaired gait Goal:Improved Stair Climbing Completed Stair training and instruction to patient on safe stair climbing, ascend/descend 6 steps, with railings with minimal assist and verbal cues for sequencing. Physical Therapy Gait Training Problem:PT Impaired gait Goal:Improved Gait Completed Gait training and instruction to patient on safe ambulation with front wheeled walker for 150 feet x 2 with supervision, with verbal cues to facilitate upright posture.. [facility] Visit Details Visit Type -SN ROUTINE Discipline -Senior Care Problems Problem Description Start Date Status Goals Interve ntions Medication Education Disciplines: Skilled Services 10/30/2021 Active 1 goal linked to scheduled/document ed intervention 1 goal intervention scheduled/documente d in this visit Physician Specific Parameters Disciplines: Skilled Services 10/30/2021 Active 1 goal linked to scheduled/document ed intervention 2 goal interventions scheduled/documente d in this visit Risk for Falls Disciplines: Skilled Services 10/30/2021 Active 1 goal linked to scheduled/document ed intervention 1 goal intervention scheduled/documente d in this visit Pain Disciplines: Skilled Services 10/30/2021 Active 1 goal linked to scheduled/document ed intervention 1 goal intervention scheduled/documente d in this visit Diabetic Foot Care Disciplines: Skilled Services 10/30/2021 Active 1 goal linked to scheduled/document ed intervention 1 goal intervention scheduled/documente d in this visit Nutrition/Hydra tion Disciplines: Skilled Services 10/30/2021 Active 1 goal linked to scheduled/document ed intervention 1 goal intervention scheduled/documente d in this visit High Risk Medications Disciplines: Skilled Services 10/30/2021 Active 1 goal linked to scheduled/document ed intervention 1 goal intervention scheduled/documente d in this visit Discharge Disciplines: Skilled Services 10/30/2021 Active 1 goal linked to scheduled/document ed intervention 1 goal intervention scheduled/documente d in this visit SN Diabetes Disciplines: SN 10/30/2021 Active 1 goal linked to scheduled/document ed intervention 2 goal interventions scheduled/documente d in this visit SN Learning Assessment Disciplines: SN 10/30/2021 Active 1 goal linked to scheduled/document ed intervention 1 goal intervention scheduled/documente d in this visit Goals Goal Associated Problem Outcome Goal Met? Visit Notes Patient/caregiver will demonstrate ability to obtain, store, identify and administer ordered medications, keep accurate medication list in home, and adhere to medication schedule Medication Education In Progress No Patient to maintain parameters within physician-specified ranges Physician Specific Parameters In Progress No Manage Risk for falls Description: Patient/caregiver will verbalize knowledge of individualized fall prevention strategies by 12/28/21. Risk for Falls In Progress No Manage Pain Description: Patient/caregiver will verbalize knowledge and understanding of appropriate techniques to control pain, including pain medication and non-pharmacological techniques. Patient will verbalize or demonstrate an acceptable level of pain as evidenced by a pain score of 6/10 and improvement in ability to perform activities of daily living to be achieved by 12/28/21. Pain In Progress No Manage diabetic foot care Description: Patient/caregiver will demonstrate basic understanding of and compliance with diabetic self-care management as evidenced by verbalizing purpose of daily foot care and assessment by 12/28/21. Diabetic Foot Care In Progress No Manage Nutrition/Hydration Description: Patient/caregiver will verbalize/demonstrate knowledge of prescribed diet and/or healthy nutrition. Nutrition/Hydration In Progress No Patient/caregiver will teach back high risk medication side effect and precaution education High Risk Medications In Progress No Manage discharge planning Description: Patient/caregiver will verbalize understanding of ongoing discharge plan provided related to disease management, arrangements for outpatient and/or community services, obtaining medications, supplies, and DME, as needed. Discharge No Improved management of diabetes Description: Improve diabetic management as evidenced by patient/caregiver able to teach back 3 diabetic management strategies by 12/28/21. SN Diabetes In Progress No Demonstrate understanding of education Description: Patient and/or caregiver will verbalize understanding of educational instruction provided. SN Learning Assessment In Progress No Interventions Intervention Associated Problem/Goal Status Variance Visit Notes Medication Education Description: Evaluate/instruct patient/caregiver on obtaining, storing, identifying and administering ordered medications as well as keeping accurate medication list in the home and adhereing to medication schedule Problem:Medication Education Goal:Patient/caregive r will demonstrate ability to obtain, store, identify and administer ordered medications, keep accurate medication list in home, and adhere to medication schedule Completed Patient instructed on adhering to medication schedule. Blood Sugar Description: Notify if blood sugar >250 for more than 2 consecutive days. Problem:Physician Specific Parameters Goal:Patient to maintain parameters within physician-specified ranges Completed SPO2 Description: Notify Dr. Cavazos if pulse ox is <92% at rest. Problem:Physician Specific Parameters Goal:Patient to maintain parameters within physician-specified ranges Completed Instruct on individual fall risk factors and strategies to prevent falls and injuries caused by falls. Problem:Risk for Falls Goal:Manage Risk for falls Completed SN: Patient and Caregiver instructed on Managing Impaired Functional Mobility: Use assistive device(s): Walker and Caregiver to provide assist with: Steps and ADL/IADLs Instruct on pain and instruct on strategies to control pain Problem:Pain Goal:Manage Pain Completed patient instructed on techniques to control pain including Pharmacological measures and Non-Pharmacological measures; rest, positioning/elevation and use of DME/assistive devices. Monitor lower extremities for skin lesions and educate on proper foot care Problem:Diabetic Foot Care Goal:Manage diabetic foot care Completed patient instructed on diabetic foot care including wearing proper footwear/avoiding going barefoot. Define patient s appetite/hydration status and implement strategies to improve compliance with prescribed diet and/or healthy nutrition. Problem:Nutrition/Hyd ration Goal:Manage Nutrition/Hydration Completed reinforced patient and caregiver on implementing strategies to comply with prescribed diet, healthy nutrition and adequate hydration Insulin-Instruct on high risk medication Problem:High Risk Medications Goal:Patient/caregive r will teach back high risk medication side effect and precaution education Completed patient and caregiver instructed on side effects of Insulin use including signs and symptoms of hypoglycemia such as increased weakness or shaking, moist skin, sweating, fast heartbeat, dizziness, sudden hunger, confusion, pale skin, numbness in mouth or tongue, irritability, nervousness, unsteadiness, nightmares, bad dreams, restless sleep and the importance of checking blood sugars as ordered by physician. Instruct on ongoing discharge plan Problem:Discharge Goal:Manage discharge planning Completed Ongoing Discharge plan: Discharge plan discussed with patient and caregiver including frequency and duration for home SN and plan for transition to: live independently at home without ongoing services. Instruct on diabetes disease process and management of chronic condition Description: Patient has new diagnosis of diabetes. Problem:SN Diabetes Goal:Improved management of diabetes Completed patient and caregiver assessed and reinforced on diabetes disease process, how food and insulin affect blood sugar, diet education and recogonizing s/s of hypoglycemia and hyperglycemia as found in the diabetes self-care booklets. Ensure patient/caregiver has Living with Diabetes Booklet in home Description: SN to provide and refer to diabetes education booklet every visit. Problem:SN Diabetes Goal:Improved management of diabetes Completed Patient has diabetes self-care booklet. Instruct and educate on knowledge deficits Problem:SN Learning Assessment Goal:Demonstrate understanding of education Completed patient verbalize and/or demonstrate understanding of nursing education completed today. Education methods include: verbal cues and written instructions. Further education required to improve knowledge and compliance with diabetic care management, fall prevention/home safety strategies, medication management, nutrition and pain management. 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 Problems Problem Description Start Date Status Goals Interve ntions Physician Specific Parameters Disciplines: Skilled Services 10/30/2021 Active 1 goal linked to scheduled/document ed intervention 1 goal intervention scheduled/document ed in this visit Risk for Falls Disciplines: Skilled Services 10/30/2021 Active 1 goal linked to scheduled/document ed intervention 1 goal intervention scheduled/document ed in this visit Pain Disciplines: Skilled Services 10/30/2021 Active 1 goal linked to scheduled/document ed intervention 1 goal intervention scheduled/document ed in this visit PT Impaired muscle performance and/or ROM Disciplines: PT 11/02/2021 Active 1 goal linked to scheduled/document ed intervention 1 goal intervention scheduled/document ed in this visit PT Impaired mobility Disciplines: PT 11/02/2021 Active 1 goal linked to scheduled/document ed intervention 1 goal intervention scheduled/document ed in this visit PT Impaired gait Disciplines: PT 11/02/2021 Active 2 goals linked to scheduled/document ed interventions 2 goal interventions scheduled/document ed in this visit Goals Goal Associated Problem Outcome Goal Met? Visit Notes Patient to maintain parameters within physician-specified ranges Physician Specific Parameters No Manage Risk for falls Description: Patient/caregiver will verbalize knowledge of individualized fall prevention strategies by 12/28/21. Risk for Falls No Manage Pain Description: Patient/caregiver will verbalize knowledge and understanding of appropriate techniques to control pain, including pain medication and non-pharmacological techniques. Patient will verbalize or demonstrate an acceptable level of pain as evidenced by a pain score of 6/10 and improvement in ability to perform activities of daily living to be achieved by 12/28/21. Pain No Improved Muscle Performance and/or ROM Description: LTG: Patient will demonstrate improved muscle performance to meet functional goals as evidenced by ability to tolerate 8 min of a standing activity, to be achieved by 11/28/21. . STG: Patient and/or caregiver will verbalize/demonstrate independence with home exercise program, to improve functional mobility, to be achieved by 11/14/21. PT Impaired muscle performance and/or ROM No Improved Transfers Description: LTG: Patient will demonstrate safe transfers to/from bed, chair, toilet, couch and car independently with AD, to be achieved by 11/28/21. PT Impaired mobility No Improved Stair Climbing Description: LTG: Patient will demonstrate improved stair negotiation as evidenced by ascend/descend 4 steps with railing with supervision, to safely access community and exit home, to be achieved by 11/28/21. . PT Impaired gait No Improved Gait Description: STG: Patient will demonstrate improved gait ability as evidenced by ambulation 100 feet with front wheeled walker with SBA assistance, in order to manuever throughout home , to be achieved by 11/14/21. LTG: Patient will demonstrate improved gait ability as evidenced by ambulation 150 feet with front wheeled walker independently with AD, to return to safe household and community ambulation, in order to return to [facility], to be achieved by 11/28/21. . PT Impaired gait No Interventions Intervention Associated Problem/Goal Status Variance Visit Notes SPO2 Description: Notify Dr. Cavazos if pulse ox is <92% at rest. Problem:Physician Specific Parameters Goal:Patient to maintain parameters within physician-specified ranges Completed Instruct on individual fall risk factors and strategies to prevent falls and injuries caused by falls. Problem:Risk for Falls Goal:Manage Risk for falls Completed PT: Patient and Caregiver instructed on Managing Impaired Functional Mobility: Use assistive device(s): Walker and Caregiver to provide assist with: Ambulation, Steps and Transfers Managing Pain Instruct on pain and instruct on strategies to control pain Problem:Pain Goal:Manage Pain Completed patient and caregiver instructed on techniques to control pain including Pharmacological measures and Non-Pharmacological measures; mobility/therapeutic exercise, distraction and use of DME/assistive devices. Physical Therapy Therapeutic Exercises Problem:PT Impaired muscle performance and/or ROM Goal:Improved Muscle Performance and/or ROM Completed patient instructed on strengthening exercises including: Bilateral LE standing ex's at countertop: x 15 / 1 set ( Marching, hip abd, hip ext, HS curls, heel to toe ). with verbal cues to slow down and to facilitate upright posture. . patient instructed to perform home exercise program twice a day which included: above ex's. Physical Therapy Transfer Training Problem:PT Impaired mobility Goal:Improved Transfers Completed Transfer training and instruction to patient on safe transfers to and from chair with Supervision. Physical Therapy Stair Training Problem:PT Impaired gait Goal:Improved Stair Climbing Completed Stair training and instruction to patient and caregiver on safe stair climbing, ascend/descend 6 steps at side door with railing with stand by assist. Pt also negotiated up/ down 5 steps at front door with CGA/ Vc's to slow down. Physical Therapy Gait Training Problem:PT Impaired gait Goal:Improved Gait Completed Gait training and instruction to patient on safe ambulation with front wheeled walker for 1 feet with supervision, with verbal cues. [facility] Visit Details Visit Type -SN ROUTINE Discipline -Senior Care Problems Problem Description Start Date Status Goals Interve ntions Medication Education Disciplines: Skilled Services 10/30/2021 Active 1 goal linked to scheduled/document ed intervention 1 goal intervention scheduled/document ed in this visit Physician Specific Parameters Disciplines: Skilled Services 10/30/2021 Active 1 goal linked to scheduled/document ed intervention 2 goal interventions scheduled/document ed in this visit Risk for Falls Disciplines: Skilled Services 10/30/2021 Active 1 goal linked to scheduled/document ed intervention 1 goal intervention scheduled/document ed in this visit Pain Disciplines: Skilled Services 10/30/2021 Active 1 goal linked to scheduled/document ed intervention 1 goal intervention scheduled/document ed in this visit Diabetic Foot Care Disciplines: Skilled Services 10/30/2021 Active 1 goal linked to scheduled/document ed intervention 1 goal intervention scheduled/document ed in this visit Nutrition/Hydr ation Disciplines: Skilled Services 10/30/2021 Active 1 goal linked to scheduled/document ed intervention 1 goal intervention scheduled/document ed in this visit High Risk Medications Disciplines: Skilled Services 10/30/2021 Active 1 goal linked to scheduled/document ed intervention 1 goal intervention scheduled/document ed in this visit Discharge Disciplines: Skilled Services 10/30/2021 Active 1 goal linked to scheduled/document ed intervention 1 goal intervention scheduled/document ed in this visit Advance Directives Disciplines: Skilled Services 10/30/2021 Resolved on 11/24/2021 1 goal linked to scheduled/document ed intervention SN Diabetes Disciplines: SN 10/30/2021 Active 1 goal linked to scheduled/document ed intervention 1 goal intervention scheduled/document ed in this visit SN Learning Assessment Disciplines: SN 10/30/2021 Active 1 goal linked to scheduled/document ed intervention 1 goal intervention scheduled/document ed in this visit Goals Goal Associated Problem Outcome Goal Met? Visit Notes Patient/caregiver will demonstrate ability to obtain, store, identify and administer ordered medications, keep accurate medication list in home, and adhere to medication schedule Medication Education In Progress No Patient to maintain parameters within physician-specified ranges Physician Specific Parameters In Progress No Manage Risk for falls Description: Patient/caregiver will verbalize knowledge of individualized fall prevention strategies by 12/28/21. Risk for Falls In Progress No Manage Pain Description: Patient/caregiver will verbalize knowledge and understanding of appropriate techniques to control pain, including pain medication and non-pharmacological techniques. Patient will verbalize or demonstrate an acceptable level of pain as evidenced by a pain score of 6/10 and improvement in ability to perform activities of daily living to be achieved by 12/28/21. Pain In Progress No Manage diabetic foot care Description: Patient/caregiver will demonstrate basic understanding of and compliance with diabetic self-care management as evidenced by verbalizing purpose of daily foot care and assessment by 12/28/21. Diabetic Foot Care In Progress No Manage Nutrition/Hydration Description: Patient/caregiver will verbalize/demonstrate knowledge of prescribed diet and/or healthy nutrition. Nutrition/Hydration In Progress No Patient/caregiver will teach back high risk medication side effect and precaution education High Risk Medications In Progress No Manage discharge planning Description: Patient/caregiver will verbalize understanding of ongoing discharge plan provided related to disease management, arrangements for outpatient and/or community services, obtaining medications, supplies, and DME, as needed. Discharge In Progress No Patient/caregiver will make healthcare providers aware of Advance Directives Advance Directives Completed Yes Improved management of diabetes Description: Improve diabetic management as evidenced by patient/caregiver able to teach back 3 diabetic management strategies by 12/28/21. SN Diabetes In Progress No Demonstrate understanding of education Description: Patient and/or caregiver will verbalize understanding of educational instruction provided. SN Learning Assessment In Progress No Interventions Intervention Associated Problem/Goal Status Variance Visit Notes Medication Education Description: Evaluate/instruct patient/caregiver on obtaining, storing, identifying and administering ordered medications as well as keeping accurate medication list in the home and adhereing to medication schedule Problem:Medication Education Goal:Patient/caregive r will demonstrate ability to obtain, store, identify and administer ordered medications, keep accurate medication list in home, and adhere to medication schedule Completed Patient and Caregiver instructed on adhering to medication schedule. Blood Sugar Description: Notify if blood sugar >250 for more than 2 consecutive days. Problem:Physician Specific Parameters Goal:Patient to maintain parameters within physician-specified ranges Completed SPO2 Description: Notify Dr. Cavazos if pulse ox is <92% at rest. Problem:Physician Specific Parameters Goal:Patient to maintain parameters within physician-specified ranges Completed Instruct on individual fall risk factors and strategies to prevent falls and injuries caused by falls. Problem:Risk for Falls Goal:Manage Risk for falls Completed SN: Patient instructed on Managing Impaired Functional Mobility: Use assistive device(s): Walker Instruct on pain and instruct on strategies to control pain Problem:Pain Goal:Manage Pain Completed patient and caregiver instructed on techniques to control pain including Pharmacological measures and Non-Pharmacological measures; positioning/elevation and mobility/therapeutic exercise. Monitor lower extremities for skin lesions and educate on proper foot care Problem:Diabetic Foot Care Goal:Manage diabetic foot care Completed patient instructed on diabetic foot care including wearing proper footwear/avoiding going barefoot. Define patient s appetite/hydration status and implement strategies to improve compliance with prescribed diet and/or healthy nutrition. Problem:Nutrition/Hyd ration Goal:Manage Nutrition/Hydration Completed instructed patient and caregiver on implementing strategies to comply with prescribed diet and healthy nutrition Insulin-Instruct on high risk medication Problem:High Risk Medications Goal:Patient/caregive r will teach back high risk medication side effect and precaution education Completed patient and caregiver instructed on side effects of Insulin use including signs and symptoms of hypoglycemia such as increased weakness or shaking, moist skin, sweating, fast heartbeat, dizziness, sudden hunger, confusion, pale skin, numbness in mouth or tongue, irritability, nervousness, unsteadiness, nightmares, bad dreams, restless sleep and the importance of checking blood sugars as ordered by physician. Instruct on ongoing discharge plan Problem:Discharge Goal:Manage discharge planning Completed Ongoing Discharge plan: Discharge plan discussed with patient and caregiver including frequency and duration for home SN and plan for transition to: live independently at home without ongoing services. Instruct on diabetes disease process and management of chronic condition Description: Patient has new diagnosis of diabetes. Problem:SN Diabetes Goal:Improved management of diabetes Completed patient and caregiver assessed and reinforced on how food and insulin affect blood sugar, diet education and recogonizing s/s of hypoglycemia and hyperglycemia as found in the diabetes self-care booklets. Instruct and educate on knowledge deficits Problem:SN Learning Assessment Goal:Demonstrate understanding of education Completed patient and caregiver verbalize and/or demonstrate understanding of nursing education completed today. Education methods include: verbal cues, written instructions and visual cues. Further education required to improve knowledge and compliance with diabetic care management, fall prevention/home safety strategies, medication management, nutrition and pain management. [facility] Visit Details Visit Type -PT REASSESSMENT Discipline -Physical Therapy Problems Problem Description Start Date Status Goals Interve ntions Physician Specific Parameters Disciplines: Skilled Services 10/30/2021 Active 1 goal linked to scheduled/document ed intervention 2 goal interventions scheduled/document ed in this visit Risk for Falls Disciplines: Skilled Services 10/30/2021 Active 1 goal linked to scheduled/document ed intervention 1 goal intervention scheduled/document ed in this visit Diabetic Foot Care Disciplines: Skilled Services 10/30/2021 Active 1 goal linked to scheduled/document ed intervention 1 goal intervention scheduled/document ed in this visit PT Impaired muscle performance and/or ROM Disciplines: PT 11/02/2021 Resolved on 11/27/2021 1 goal linked to scheduled/document ed intervention 1 goal intervention scheduled/document ed in this visit PT Impaired mobility Disciplines: PT 11/02/2021 Resolved on 11/27/2021 1 goal linked to scheduled/document ed intervention 1 goal intervention scheduled/document ed in this visit PT Impaired gait Disciplines: PT 11/02/2021 Resolved on 11/27/2021 2 goals linked to scheduled/document ed interventions 2 goal interventions scheduled/document ed in this visit PT Impaired balance Disciplines: PT 11/02/2021 Resolved on 11/27/2021 1 goal linked to scheduled/document ed intervention 1 goal intervention scheduled/document ed in this visit PT Learning Assessment Disciplines: PT 11/02/2021 Active 1 goal linked to scheduled/document ed intervention 1 goal intervention scheduled/document ed in this visit Goals Goal Associated Problem Outcome Goal Met? Visit Notes Patient to maintain parameters within physician-specified ranges Physician Specific Parameters No Manage Risk for falls Description: Patient/caregiver will verbalize knowledge of individualized fall prevention strategies by 12/28/21. Risk for Falls No Manage diabetic foot care Description: Patient/caregiver will demonstrate basic understanding of and compliance with diabetic self-care management as evidenced by verbalizing purpose of daily foot care and assessment by 12/28/21. Diabetic Foot Care No Improved Muscle Performance and/or ROM Description: LTG: Patient will demonstrate improved muscle performance to meet functional goals as evidenced by ability to tolerate 8 min of a standing activity, to be achieved by 11/28/21. . STG: Patient and/or caregiver will verbalize/demonstrate independence with home exercise program, to improve functional mobility, to be achieved by 11/14/21. PT Impaired muscle performance and/or ROM Completed Yes Improved Transfers Description: LTG: Patient will demonstrate safe transfers to/from bed, chair, toilet, couch and car independently with AD, to be achieved by 11/28/21. PT Impaired mobility Completed Yes Improved Stair Climbing Description: LTG: Patient will demonstrate improved stair negotiation as evidenced by ascend/descend 4 steps with railing with supervision, to safely access community and exit home, to be achieved by 11/28/21. . PT Impaired gait Completed Yes Improved Gait Description: STG: Patient will demonstrate improved gait ability as evidenced by ambulation 100 feet with front wheeled walker with SBA assistance, in order to manuever throughout home , to be achieved by 11/14/21. LTG: Patient will demonstrate improved gait ability as evidenced by ambulation 150 feet with front wheeled walker independently with AD, to return to safe household and community ambulation, in order to return to plf, to be achieved by 11/28/21. . PT Impaired gait Completed Yes Improved Balance Description: LTG: Patient will demonstrate improved standing balance to meet functional goals as evidenced by TUG score of <30 sec to be achieved by 11/28/21. PT Impaired balance Completed Yes Demonstrate understanding of education Description: Patient and/or caregiver will understand educational instruction to be achieved by 11/28/21. reassessment completed - new achieve by date of 12/26/21 . PT Learning Assessment No Interventions Intervention Associated Problem/Goal Status Variance Visit Notes Blood Sugar Description: Notify if blood sugar >250 for more than 2 consecutive days. Problem:Physician Specific Parameters Goal:Patient to maintain parameters within physician-specified ranges Completed SPO2 Description: Notify Dr. Cavazos if pulse ox is <92% at rest. Problem:Physician Specific Parameters Goal:Patient to maintain parameters within physician-specified ranges Completed Instruct on individual fall risk factors and strategies to prevent falls and injuries caused by falls. Problem:Risk for Falls Goal:Manage Risk for falls Completed PT: Patient instructed on Eliminating Environmental Hazards: Keep pathways clear, Remove unsafe rugs and Wear supportive shoes or non-skid socks Managing Impaired Functional Mobility: Use assistive device(s): Walker Managing Pain Monitor lower extremities for skin lesions and educate on proper foot care Problem:Diabetic Foot Care Goal:Manage diabetic foot care Completed patient and caregiver instructed on diabetic foot care including daily skin inspection and wearing proper footwear/avoiding going barefoot. Physical Therapy Therapeutic Exercises Problem:PT Impaired muscle performance and/or ROM Goal:Improved Muscle Performance and/or ROM Completed patient instructed on strengthening exercises including: STANDING : HEEL RAISES, TOE RAISES , HIP FLEX, HIP ABD X 10 ( added KNEE FLEXION ) with verbal cues for pacing and technique . caregiver instructed to perform home exercise program twice a day which included hourly ambulation . Physical Therapy Transfer Training Problem:PT Impaired mobility Goal:Improved Transfers Completed pt demos sup to sit with SUZANNA and sit to stand with single armrest and sba pt requires cga for car transfers and declines to try a tub transfer via transfer bench because i cant lift my leg up , im not strong enough Physical Therapy Stair Training Problem:PT Impaired gait Goal:Improved Stair Climbing Completed Stair training and instruction to patient on safe stair climbing, ascend/descend 5 steps, with railing with stand by assist and verbal cues for using LE more than LE . Physical Therapy Gait Training Problem:PT Impaired gait Goal:Improved Gait Completed Gait training and instruction to patient and caregiver on safe ambulation with front wheeled walker for 150' x 2 feet with stand by assist, with verbal cues for corrections of gait deviations including erect posture, widening his TAPAN, . Physical Therapy Balance Training Problem:PT Impaired balance Goal:Improved Balance Completed pt demonstrates iimproved dynamic standing balance as evidenced by a tug of 23 with WW Instruct and educate on knowledge deficits Problem:PT Learning Assessment Goal:Demonstrate understanding of education Completed patient verbalize and/or demonstrate understanding of physical therapy education including home exercise program, pain management and fall prevention strategies. Education methods include: verbal cues. Further education required to improve knowledge and compliance with home exercise program, pain management, fall prevention strategies and home safety. [facility] Visit Details Visit Type -SN ROUTINE Discipline -Senior Care Problems Problem Description Start Date Status Goals Interve ntions Medication Education Disciplines: Skilled Services 10/30/2021 Active 1 goal linked to scheduled/document ed intervention 1 goal intervention scheduled/documente d in this visit Physician Specific Parameters Disciplines: Skilled Services 10/30/2021 Active 1 goal linked to scheduled/document ed intervention 2 goal interventions scheduled/documente d in this visit Risk for Falls Disciplines: Skilled Services 10/30/2021 Active 1 goal linked to scheduled/document ed intervention 1 goal intervention scheduled/documente d in this visit Pain Disciplines: Skilled Services 10/30/2021 Active 1 goal linked to scheduled/document ed intervention 1 goal intervention scheduled/documente d in this visit Discharge Disciplines: Skilled Services 10/30/2021 Active 1 goal linked to scheduled/document ed intervention 1 goal intervention scheduled/documente d in this visit Goals Goal Associated Problem Outcome Goal Met? Visit Notes Patient/caregiver will demonstrate ability to obtain, store, identify and administer ordered medications, keep accurate medication list in home, and adhere to medication schedule Medication Education No Patient to maintain parameters within physician-specified ranges Physician Specific Parameters No Manage Risk for falls Description: Patient/caregiver will verbalize knowledge of individualized fall prevention strategies by 12/28/21. Risk for Falls No Manage Pain Description: Patient/caregiver will verbalize knowledge and understanding of appropriate techniques to control pain, including pain medication and non-pharmacological techniques. Patient will verbalize or demonstrate an acceptable level of pain as evidenced by a pain score of 6/10 and improvement in ability to perform activities of daily living to be achieved by 12/28/21. Pain No Manage discharge planning Description: Patient/caregiver will verbalize understanding of ongoing discharge plan provided related to disease management, arrangements for outpatient and/or community services, obtaining medications, supplies, and DME, as needed. Discharge No Interventions Intervention Associated Problem/Goal Status Variance Visit Notes Medication Education Description: Evaluate/instruct patient/caregiver on obtaining, storing, identifying and administering ordered medications as well as keeping accurate medication list in the home and adhereing to medication schedule Problem:Medication Education Goal:Patient/caregiv er will demonstrate ability to obtain, store, identify and administer ordered medications, keep accurate medication list in home, and adhere to medication schedule Completed Patient instructed on importance of keeping accurate medication list in home, adhering to medication schedule, proper storage of medications, Medication, route, dose, frequency, purpose, and side effects of medications, disposing of old and out of date medications, how to order refills, med media planner / buyer set up and med diary and reminders. Blood Sugar Description: Notify if blood sugar >250 for more than 2 consecutive days. Problem:Physician Specific Parameters Goal:Patient to maintain parameters within physician-specified ranges Completed SPO2 Description: Notify Dr. Cavazos if pulse ox is <92% at rest. Problem:Physician Specific Parameters Goal:Patient to maintain parameters within physician-specified ranges Completed Instruct on individual fall risk factors and strategies to prevent falls and injuries caused by falls. Problem:Risk for Falls Goal:Manage Risk for falls Completed SN: Patient instructed on Managing Impaired Functional Mobility: Use assistive device(s): Walker Instruct on pain and instruct on strategies to control pain Problem:Pain Goal:Manage Pain Completed patient instructed on techniques to control pain including Pharmacological measures and Non-Pharmacological measures; rest, positioning/elevation, mobility/therapeutic exercise, distraction, breathing/relaxation and use of DME/assistive devices. Instruct on ongoing discharge plan Problem:Discharge Goal:Manage discharge planning Completed Ongoing Discharge plan: Discharge plan discussed with patient including frequency and duration for home SN and plan for transition to: live independently at home without ongoing services. 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 Problems Problem Description Start Date Status Goals Interve ntions Physician Specific Parameters Disciplines: Skilled Services 10/30/2021 Active 1 goal linked to scheduled/document ed intervention 1 goal intervention scheduled/document ed in this visit Risk for Falls Disciplines: Skilled Services 10/30/2021 Active 1 goal linked to scheduled/document ed intervention 1 goal intervention scheduled/document ed in this visit Pain Disciplines: Skilled Services 10/30/2021 Active 1 goal linked to scheduled/document ed intervention 1 goal intervention scheduled/document ed in this visit PT Impaired muscle performance and/or ROM Disciplines: PT 11/27/2021 Active 1 goal linked to scheduled/document ed intervention 1 goal intervention scheduled/document ed in this visit PT Impaired gait Disciplines: PT 11/27/2021 Active 2 goals linked to scheduled/document ed interventions 2 goal interventions scheduled/document ed in this visit Goals Goal Associated Problem Outcome Goal Met? Visit Notes Patient to maintain parameters within physician-specified ranges Physician Specific Parameters No Manage Risk for falls Description: Patient/caregiver will verbalize knowledge of individualized fall prevention strategies by 12/28/21. Risk for Falls No Manage Pain Description: Patient/caregiver will verbalize knowledge and understanding of appropriate techniques to control pain, including pain medication and non-pharmacological techniques. Patient will verbalize or demonstrate an acceptable level of pain as evidenced by a pain score of 6/10 and improvement in ability to perform activities of daily living to be achieved by 12/28/21. Pain No Improved Muscle Performance and/or ROM Description: LTG: Patient will demonstrate improved muscle performance to meet functional goals as evidenced by ability to tolerate 10 min of standing activity, to be achieved by 12/26/21. . STG: Patient and/or caregiver will verbalize/demonstrate independence with home exercise program, to improve functional mobility, to be achieved by 12/05/21. LTG: Patient will demonstrate improved bilateral hip active range of motion to WFL degrees, to be able to transfer on to the shower chair , to be achieved by 12/26/21. . PT Impaired muscle performance and/or ROM No Improved Stair Climbing Description: LTG: Patient will demonstrate improved stair negotiation as evidenced by ascend/descend 5 steps with railings independently, to safely access community and exit home, to be achieved by 12/26/21. . PT Impaired gait No Improved Gait Description: STG: Patient will demonstrate improved gait ability as evidenced by ambulation 150 feet with front wheeled walker and steady reciprocal gait pattern independently with AD, in order to manuever throughout home independentluy , to be achieved by 12/19/21 LTG: Patient will demonstrate improved gait ability as evidenced by ambulation 100 feet with front wheeled walker with supervision on smooth outdoor surfaces , to return to safe outdoor ambulation, , to be achieved by 12/26/21. PT Impaired gait No Interventions Intervention Associated Problem/Goal Status Variance Visit Notes SPO2 Description: Notify Dr. Cavazos if pulse ox is <92% at rest. Problem:Physician Specific Parameters Goal:Patient to maintain parameters within physician-specified ranges Completed Instruct on individual fall risk factors and strategies to prevent falls and injuries caused by falls. Problem:Risk for Falls Goal:Manage Risk for falls Completed PT: Patient instructed on Managing Impaired Functional Mobility: Use assistive device(s): Walker and Caregiver to provide assist with: Ambulation and Steps Managing Pain Instruct on pain and instruct on strategies to control pain Problem:Pain Goal:Manage Pain Completed patient instructed on techniques to control pain including Pharmacological measures and Non-Pharmacological measures; rest, mobility/therapeutic exercise, distraction and use of DME/assistive devices. Physical Therapy Therapeutic Exercises Problem:PT Impaired muscle performance and/or ROM Goal:Improved Muscle Performance and/or ROM Completed patient instructed on strengthening exercises including: Bilateral LE standing ex's at countertop: x 15 / 1 set ( Marching, hip abd, hip ext, HS curls, heel to toe ). Supine ex: SLR nd pelvic tilts x 10/ 1 set,with verbal cues to slow down. patient instructed to perform home exercise program twice a day which included: above ex's. Physical Therapy Stair Training Problem:PT Impaired gait Goal:Improved Stair Climbing Completed Stair training and instruction to patient on safe stair climbing, ascend/descend 7 steps, with railing with supervision and verbal cues to slow down. Physical Therapy Gait Training Problem:PT Impaired gait Goal:Improved Gait Completed Gait training and instruction to patient on safe ambulation with front wheeled walker for 200 feet with supervision, with verbal cues to slow down and to facilitate upright posture. 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 Problems Problem Description Start Date Status Goals Interve ntions Physician Specific Parameters Disciplines: Skilled Services 10/30/2021 Active 1 goal linked to scheduled/document ed intervention 1 goal intervention scheduled/document ed in this visit Risk for Falls Disciplines: Skilled Services 10/30/2021 Active 1 goal linked to scheduled/document ed intervention 1 goal intervention scheduled/document ed in this visit Pain Disciplines: Skilled Services 10/30/2021 Active 1 goal linked to scheduled/document ed intervention 1 goal intervention scheduled/document ed in this visit PT Impaired muscle performance and/or ROM Disciplines: PT 11/27/2021 Active 1 goal linked to scheduled/document ed intervention 1 goal intervention scheduled/document ed in this visit PT Impaired gait Disciplines: PT 11/27/2021 Active 2 goals linked to scheduled/document ed interventions 2 goal interventions scheduled/document ed in this visit Goals Goal Associated Problem Outcome Goal Met? Visit Notes Patient to maintain parameters within physician-specified ranges Physician Specific Parameters No Manage Risk for falls Description: Patient/caregiver will verbalize knowledge of individualized fall prevention strategies by 12/28/21. Risk for Falls No Manage Pain Description: Patient/caregiver will verbalize knowledge and understanding of appropriate techniques to control pain, including pain medication and non-pharmacological techniques. Patient will verbalize or demonstrate an acceptable level of pain as evidenced by a pain score of 6/10 and improvement in ability to perform activities of daily living to be achieved by 12/28/21. Pain No Improved Muscle Performance and/or ROM Description: LTG: Patient will demonstrate improved muscle performance to meet functional goals as evidenced by ability to tolerate 10 min of standing activity, to be achieved by 12/26/21. . STG: Patient and/or caregiver will verbalize/demonstrate independence with home exercise program, to improve functional mobility, to be achieved by 12/05/21. LTG: Patient will demonstrate improved bilateral hip active range of motion to WFL degrees, to be able to transfer on to the shower chair , to be achieved by 12/26/21. . PT Impaired muscle performance and/or ROM No Improved Stair Climbing Description: LTG: Patient will demonstrate improved stair negotiation as evidenced by ascend/descend 5 steps with railings independently, to safely access community and exit home, to be achieved by 12/26/21. . PT Impaired gait No Improved Gait Description: STG: Patient will demonstrate improved gait ability as evidenced by ambulation 150 feet with front wheeled walker and steady reciprocal gait pattern independently with AD, in order to manuever throughout home independentluy , to be achieved by 12/19/21 LTG: Patient will demonstrate improved gait ability as evidenced by ambulation 100 feet with front wheeled walker with supervision on smooth outdoor surfaces , to return to safe outdoor ambulation, , to be achieved by 12/26/21. PT Impaired gait No Interventions Intervention Associated Problem/Goal Status Variance Visit Notes SPO2 Description: Notify Dr. Cavazos if pulse ox is <92% at rest. Problem:Physician Specific Parameters Goal:Patient to maintain parameters within physician-specified ranges Completed Instruct on individual fall risk factors and strategies to prevent falls and injuries caused by falls. Problem:Risk for Falls Goal:Manage Risk for falls Completed PT: Patient instructed on Managing Impaired Functional Mobility: Use assistive device(s): Walker and Caregiver to provide assist with: Ambulation and Steps Managing Pain Instruct on pain and instruct on strategies to control pain Problem:Pain Goal:Manage Pain Completed patient instructed on techniques to control pain including Non-Pharmacological measures; mobility/therapeutic exercise, distraction and use of DME/assistive devices. Physical Therapy Therapeutic Exercises Problem:PT Impaired muscle performance and/or ROM Goal:Improved Muscle Performance and/or ROM Completed patient instructed on strengthening exercises including: Bilateral LE standing ex's at countertop: x 15 / 1 set ( Marching, hip abd, hip ext, HS curls, heel to toe, and minin squats ). Supine SLR and Bpelvic tilt x 10/ 1 set/ hold 5 sec. Seated LAQ x 15/ 1 set. with verbal cues toto slow down and to facilitate upright posture.. patient instructed to perform home exercise program twice a day which included: Above exercises.. Physical Therapy Stair Training Problem:PT Impaired gait Goal:Improved Stair Climbing Completed Stair training and instruction to patient on safe stair climbing, ascend/descend 7 steps, with railing with supervision and verbal cues to slow down. Physical Therapy Gait Training Problem:PT Impaired gait Goal:Improved Gait Completed Gait training and instruction to patient on safe ambulation with front wheeled walker for 200 feet Modified Indep. with verbal cues to slow down and to facilitate upright posture.. [facility] Visit Details Visit Type -SN ROUTINE Discipline -Senior Care Problems Problem Description Start Date Status Goals Interve ntions Medication Education Disciplines: Skilled Services 10/30/2021 Active 1 goal linked to scheduled/document ed intervention 1 goal intervention scheduled/documente d in this visit Physician Specific Parameters Disciplines: Skilled Services 10/30/2021 Active 1 goal linked to scheduled/document ed intervention 2 goal interventions scheduled/documente d in this visit Risk for Falls Disciplines: Skilled Services 10/30/2021 Active 1 goal linked to scheduled/document ed intervention 1 goal intervention scheduled/documente d in this visit Pain Disciplines: Skilled Services 10/30/2021 Active 1 goal linked to scheduled/document ed intervention 1 goal intervention scheduled/documente d in this visit Diabetic Foot Care Disciplines: Skilled Services 10/30/2021 Active 1 goal linked to scheduled/document ed intervention 1 goal intervention scheduled/documente d in this visit Nutrition/Hydra tion Disciplines: Skilled Services 10/30/2021 Active 1 goal linked to scheduled/document ed intervention 1 goal intervention scheduled/documente d in this visit High Risk Medications Disciplines: Skilled Services 10/30/2021 Active 1 goal linked to scheduled/document ed intervention 1 goal intervention scheduled/documente d in this visit SN Diabetes Disciplines: SN 10/30/2021 Active 1 goal linked to scheduled/document ed intervention 1 goal intervention scheduled/documente d in this visit SN Learning Assessment Disciplines: SN 10/30/2021 Active 1 goal linked to scheduled/document ed intervention 1 goal intervention scheduled/documente d in this visit Goals Goal Associated Problem Outcome Goal Met? Visit Notes Patient/caregiver will demonstrate ability to obtain, store, identify and administer ordered medications, keep accurate medication list in home, and adhere to medication schedule Medication Education In Progress No Patient to maintain parameters within physician-specified ranges Physician Specific Parameters In Progress No Manage Risk for falls Description: Patient/caregiver will verbalize knowledge of individualized fall prevention strategies by 12/28/21. Risk for Falls In Progress No Manage Pain Description: Patient/caregiver will verbalize knowledge and understanding of appropriate techniques to control pain, including pain medication and non-pharmacological techniques. Patient will verbalize or demonstrate an acceptable level of pain as evidenced by a pain score of 6/10 and improvement in ability to perform activities of daily living to be achieved by 12/28/21. Pain In Progress No Manage diabetic foot care Description: Patient/caregiver will demonstrate basic understanding of and compliance with diabetic self-care management as evidenced by verbalizing purpose of daily foot care and assessment by 12/28/21. Diabetic Foot Care In Progress No Manage Nutrition/Hydration Description: Patient/caregiver will verbalize/demonstrate knowledge of prescribed diet and/or healthy nutrition. Nutrition/Hydration In Progress No Patient/caregiver will teach back high risk medication side effect and precaution education High Risk Medications In Progress No Improved management of diabetes Description: Improve diabetic management as evidenced by patient/caregiver able to teach back 3 diabetic management strategies by 12/28/21. SN Diabetes In Progress No Demonstrate understanding of education Description: Patient and/or caregiver will verbalize understanding of educational instruction provided. SN Learning Assessment In Progress No Interventions Intervention Associated Problem/Goal Status Variance Visit Notes Medication Education Description: Evaluate/instruct patient/caregiver on obtaining, storing, identifying and administering ordered medications as well as keeping accurate medication list in the home and adhereing to medication schedule Problem:Medication Education Goal:Patient/caregive r will demonstrate ability to obtain, store, identify and administer ordered medications, keep accurate medication list in home, and adhere to medication schedule Completed Patient instructed on adhering to medication schedule. Blood Sugar Description: Notify if blood sugar >250 for more than 2 consecutive days. Problem:Physician Specific Parameters Goal:Patient to maintain parameters within physician-specified ranges Completed SPO2 Description: Notify Dr. Cavazos if pulse ox is <92% at rest. Problem:Physician Specific Parameters Goal:Patient to maintain parameters within physician-specified ranges Completed Instruct on individual fall risk factors and strategies to prevent falls and injuries caused by falls. Problem:Risk for Falls Goal:Manage Risk for falls Completed SN: Patient and Caregiver instructed on Managing Impaired Functional Mobility: Use assistive device(s): Walker Managing Pain: Recommended pain medication schedule and management of side effects to minimize fall risk Instruct on pain and instruct on strategies to control pain Problem:Pain Goal:Manage Pain Completed patient and caregiver instructed on techniques to control pain including Pharmacological measures and Non-Pharmacological measures; rest, positioning/elevation and mobility/therapeutic exercise. Monitor lower extremities for skin lesions and educate on proper foot care Problem:Diabetic Foot Care Goal:Manage diabetic foot care Completed patient instructed on diabetic foot care including wearing proper footwear/avoiding going barefoot. Define patient s appetite/hydration status and implement strategies to improve compliance with prescribed diet and/or healthy nutrition. Problem:Nutrition/Hyd ration Goal:Manage Nutrition/Hydration Completed reinforced patient and caregiver on implementing strategies to comply with prescribed diet, healthy nutrition and adequate hydration Insulin-Instruct on high risk medication Problem:High Risk Medications Goal:Patient/caregive r will teach back high risk medication side effect and precaution education Completed patient and caregiver instructed on side effects of Insulin use including signs and symptoms of hypoglycemia such as increased weakness or shaking, moist skin, sweating, fast heartbeat, dizziness, sudden hunger, confusion, pale skin, numbness in mouth or tongue, irritability, nervousness, unsteadiness, nightmares, bad dreams, restless sleep and the importance of checking blood sugars as ordered by physician. Instruct on diabetes disease process and management of chronic condition Description: Patient has new diagnosis of diabetes. Problem:SN Diabetes Goal:Improved management of diabetes Completed patient and caregiver assessed and reinforced on diabetes disease process, how food and insulin affect blood sugar, diet education and recogonizing s/s of hypoglycemia and hyperglycemia as found in the diabetes self-care booklets. Instruct and educate on knowledge deficits Problem:SN Learning Assessment Goal:Demonstrate understanding of education Completed patient and caregiver verbalize and/or demonstrate understanding of nursing education completed today. Education methods include: verbal cues and written instructions. Further education required to improve knowledge and compliance with diabetic care management, fall prevention/home safety strategies, medication management, nutrition and pain management. documented in this encounter [facility] home Plan of care note* Visit Details Visit Type -SN ROUTINE Discipline -Senior Care Problems Problem Description Start Date Status Goals Interve ntions Medication Education Disciplines: Skilled Services 10/30/2021 Active 1 goal linked to scheduled/document ed intervention 1 goal intervention scheduled/document ed in this visit Physician Specific Parameters Disciplines: Skilled Services 10/30/2021 Active 1 goal linked to scheduled/document ed intervention 2 goal interventions scheduled/document ed in this visit Risk for Falls Disciplines: Skilled Services 10/30/2021 Active 1 goal linked to scheduled/document ed intervention 1 goal intervention scheduled/document ed in this visit Pain Disciplines: Skilled Services 10/30/2021 Active 1 goal linked to scheduled/document ed intervention 1 goal intervention scheduled/document ed in this visit Diabetic Foot Care Disciplines: Skilled Services 10/30/2021 Active 1 goal linked to scheduled/document ed intervention 1 goal intervention scheduled/document ed in this visit Nutrition/Hydr ation Disciplines: Skilled Services 10/30/2021 Active 1 goal linked to scheduled/document ed intervention 1 goal intervention scheduled/document ed in this visit High Risk Medications Disciplines: Skilled Services 10/30/2021 Resolved on 12/15/2021 1 goal linked to scheduled/document ed intervention 1 goal intervention scheduled/document ed in this visit Discharge Disciplines: Skilled Services 10/30/2021 Active 1 goal linked to scheduled/document ed intervention 1 goal intervention scheduled/document ed in this visit SN Diabetes Disciplines: SN 10/30/2021 Active 1 goal linked to scheduled/document ed intervention 1 goal intervention scheduled/document ed in this visit SN Learning Assessment Disciplines: SN 10/30/2021 Active 1 goal linked to scheduled/document ed intervention 1 goal intervention scheduled/document ed in this visit Goals Goal Associated Problem Outcome Goal Met? Visit Notes Patient/caregiver will demonstrate ability to obtain, store, identify and administer ordered medications, keep accurate medication list in home, and adhere to medication schedule Medication Education In Progress No Patient to maintain parameters within physician-specified ranges Physician Specific Parameters In Progress No Manage Risk for falls Description: Patient/caregiver will verbalize knowledge of individualized fall prevention strategies by 12/28/21. Risk for Falls In Progress No Manage Pain Description: Patient/caregiver will verbalize knowledge and understanding of appropriate techniques to control pain, including pain medication and non-pharmacological techniques. Patient will verbalize or demonstrate an acceptable level of pain as evidenced by a pain score of 6/10 and improvement in ability to perform activities of daily living to be achieved by 12/28/21. Pain In Progress No Manage diabetic foot care Description: Patient/caregiver will demonstrate basic understanding of and compliance with diabetic self-care management as evidenced by verbalizing purpose of daily foot care and assessment by 12/28/21. Diabetic Foot Care In Progress No Manage Nutrition/Hydration Description: Patient/caregiver will verbalize/demonstrate knowledge of prescribed diet and/or healthy nutrition. Nutrition/Hydration In Progress No Patient/caregiver will teach back high risk medication side effect and precaution education High Risk Medications Completed Yes Manage discharge planning Description: Patient/caregiver will verbalize understanding of ongoing discharge plan provided related to disease management, arrangements for outpatient and/or community services, obtaining medications, supplies, and DME, as needed. Discharge In Progress No Improved management of diabetes Description: Improve diabetic management as evidenced by patient/caregiver able to teach back 3 diabetic management strategies by 12/28/21. SN Diabetes In Progress No Demonstrate understanding of education Description: Patient and/or caregiver will verbalize understanding of educational instruction provided. SN Learning Assessment In Progress No Interventions Intervention Associated Problem/Goal Status Variance Visit Notes Medication Education Description: Evaluate/instruct patient/caregiver on obtaining, storing, identifying and administering ordered medications as well as keeping accurate medication list in the home and adhereing to medication schedule Problem:Medication Education Goal:Patient/caregive r will demonstrate ability to obtain, store, identify and administer ordered medications, keep accurate medication list in home, and adhere to medication schedule Completed Patient and Caregiver instructed on adhering to medication schedule. Blood Sugar Description: Notify if blood sugar >250 for more than 2 consecutive days. Problem:Physician Specific Parameters Goal:Patient to maintain parameters within physician-specified ranges Completed SPO2 Description: Notify Dr. Cavazos if pulse ox is <92% at rest. Problem:Physician Specific Parameters Goal:Patient to maintain parameters within physician-specified ranges Completed Instruct on individual fall risk factors and strategies to prevent falls and injuries caused by falls. Problem:Risk for Falls Goal:Manage Risk for falls Completed SN: Patient instructed on Managing Impaired Functional Mobility: Use assistive device(s): Walker and Caregiver to provide assist with: Steps Instruct on pain and instruct on strategies to control pain Problem:Pain Goal:Manage Pain Completed patient instructed on techniques to control pain including Pharmacological measures and Non-Pharmacological measures; mobility/therapeutic exercise. Monitor lower extremities for skin lesions and educate on proper foot care Problem:Diabetic Foot Care Goal:Manage diabetic foot care Completed patient instructed on diabetic foot care including wearing proper footwear/avoiding going barefoot. Define patient s appetite/hydration status and implement strategies to improve compliance with prescribed diet and/or healthy nutrition. Problem:Nutrition/Hyd ration Goal:Manage Nutrition/Hydration Completed reinforced patient and caregiver on implementing strategies to comply with prescribed diet, healthy nutrition and adequate hydration Insulin-Instruct on high risk medication Problem:High Risk Medications Goal:Patient/caregive r will teach back high risk medication side effect and precaution education Completed patient and caregiver instructed on side effects of Insulin use including signs and symptoms of hypoglycemia such as increased weakness or shaking, moist skin, sweating, fast heartbeat, dizziness, sudden hunger, confusion, pale skin, numbness in mouth or tongue, irritability, nervousness, unsteadiness, nightmares, bad dreams, restless sleep and the importance of checking blood sugars as ordered by physician. Instruct on ongoing discharge plan Problem:Discharge Goal:Manage discharge planning Completed Ongoing Discharge plan: Discharge plan discussed with patient and caregiver including frequency and duration for home SN and plan for transition to: live independently at home without ongoing services. Instruct on diabetes disease process and management of chronic condition Description: Patient has new diagnosis of diabetes. Problem:SN Diabetes Goal:Improved management of diabetes Completed patient and caregiver assessed and reinforced on monitoring blood sugars 2 times a day, how food and insulin affect blood sugar, diet education and recogonizing s/s of hypoglycemia and hyperglycemia as found in the diabetes self-care booklets. Instruct and educate on knowledge deficits Problem:SN Learning Assessment Goal:Demonstrate understanding of education Completed patient and caregiver verbalize and/or demonstrate understanding of nursing education completed today. Education methods include: verbal cues and written instructions. Further education required to improve knowledge and compliance with diabetic care management, fall prevention/home safety strategies, medication management, nutrition and pain management. documented in this encounter [facility]'s home Plan of care note* Visit Details Visit Type -PT DISC DC W VIS IT Discipline -Physical Therapy Problems Problem Description Start Date Status Goals Interve ntions Physician Specific Parameters Disciplines: Skilled Services 10/30/2021 Active 1 goal linked to scheduled/document ed intervention 2 goal interventions scheduled/document ed in this visit Risk for Falls Disciplines: Skilled Services 10/30/2021 Active 1 goal linked to scheduled/document ed intervention 1 goal intervention scheduled/document ed in this visit Diabetic Foot Care Disciplines: Skilled Services 10/30/2021 Active 1 goal linked to scheduled/document ed intervention 1 goal intervention scheduled/document ed in this visit Discharge Disciplines: Skilled Services 10/30/2021 Active 1 goal linked to scheduled/document ed intervention 2 goal interventions scheduled/document ed in this visit PT Learning Assessment Disciplines: PT 11/02/2021 Resolved on 12/21/2021 1 goal linked to scheduled/document ed intervention 1 goal intervention scheduled/document ed in this visit PT Impaired muscle performance and/or ROM Disciplines: PT 11/27/2021 Resolved on 12/21/2021 1 goal linked to scheduled/document ed intervention 1 goal intervention scheduled/document ed in this visit PT Impaired gait Disciplines: PT 11/27/2021 Resolved on 12/21/2021 2 goals linked to scheduled/document ed interventions 2 goal interventions scheduled/document ed in this visit PT Impaired balance Disciplines: PT 11/27/2021 Resolved on 12/21/2021 1 goal linked to scheduled/document ed intervention 1 goal intervention scheduled/document ed in this visit PT Impaired mobility Disciplines: PT 11/27/2021 Resolved on 12/21/2021 1 goal linked to scheduled/document ed intervention 1 goal intervention scheduled/document ed in this visit Goals Goal Associated Problem Outcome Goal Met? Visit Notes Patient to maintain parameters within physician-specified ranges Physician Specific Parameters No Manage Risk for falls Description: Patient/caregiver will verbalize knowledge of individualized fall prevention strategies by 12/28/21. Risk for Falls No Manage diabetic foot care Description: Patient/caregiver will demonstrate basic understanding of and compliance with diabetic self-care management as evidenced by verbalizing purpose of daily foot care and assessment by 12/28/21. Diabetic Foot Care No Manage discharge planning Description: Patient/caregiver will verbalize understanding of ongoing discharge plan provided related to disease management, arrangements for outpatient and/or community services, obtaining medications, supplies, and DME, as needed. Discharge No Demonstrate understanding of education Description: Patient and/or caregiver will understand educational instruction to be achieved by 11/28/21. reassessment completed - new achieve by date of 12/26/21 . PT Learning Assessment Completed Yes Improved Muscle Performance and/or ROM Description: LTG: Patient will demonstrate improved muscle performance to meet functional goals as evidenced by ability to tolerate 10 min of standing activity, to be achieved by 12/26/21. . STG: Patient and/or caregiver will verbalize/demonstrate independence with home exercise program, to improve functional mobility, to be achieved by 12/05/21. LTG: Patient will demonstrate improved bilateral hip active range of motion to WFL degrees, to be able to transfer on to the shower chair , to be achieved by 12/26/21. . PT Impaired muscle performance and/or ROM Completed Yes Improved Stair Climbing Description: LTG: Patient will demonstrate improved stair negotiation as evidenced by ascend/descend 5 steps with railings independently, to safely access community and exit home, to be achieved by 12/26/21. . PT Impaired gait Completed Yes Improved Gait Description: STG: Patient will demonstrate improved gait ability as evidenced by ambulation 150 feet with front wheeled walker and steady reciprocal gait pattern independently with AD, in order to manuever throughout home independentluy , to be achieved by 12/19/21 LTG: Patient will demonstrate improved gait ability as evidenced by ambulation 100 feet with front wheeled walker with supervision on smooth outdoor surfaces , to return to safe outdoor ambulation, , to be achieved by 12/26/21. PT Impaired gait Completed Yes Improved Balance Description: LTG: Patient will demonstrate improved standing balance to meet functional goals as evidenced by TUG score of <20 sec with WW to be achieved by 12/26/21. PT Impaired balance Completed Yes Improved Transfers Description: LTG: Patient will demonstrate safe transfers to/from chair, couch, shower/tub and car independently with AD, to be achieved by 12/26/21. . PT Impaired mobility Completed Yes Interventions Intervention Associated Problem/Goal Status Variance Visit Notes Blood Sugar Description: Notify if blood sugar >250 for more than 2 consecutive days. Problem:Physician Specific Parameters Goal:Patient to maintain parameters within physician-specified ranges Completed SPO2 Description: Notify Dr. Cavazos if pulse ox is <92% at rest. Problem:Physician Specific Parameters Goal:Patient to maintain parameters within physician-specified ranges Completed Instruct on individual fall risk factors and strategies to prevent falls and injuries caused by falls. Problem:Risk for Falls Goal:Manage Risk for falls Completed PT: Patient instructed on Eliminating Environmental Hazards: Keep pathways clear and Remove unsafe rugs Managing Impaired Functional Mobility: Use assistive device(s): Walker Managing Pain Monitor lower extremities for skin lesions and educate on proper foot care Problem:Diabetic Foot Care Goal:Manage diabetic foot care Completed patient instructed on diabetic foot care including daily skin inspection. Deliver [facility] Problem:Discharge Goal:Manage discharge planning Completed Delivered [facility] on 12/21 for discharge date of 12/23. Instruct on ongoing discharge plan Problem:Discharge Goal:Manage discharge planning Completed Ongoing Discharge plan: Discharge plan discussed with patient and caregiver including frequency and duration for home SN and plan for transition to: live independently at home without ongoing services. Instruct and educate on knowledge deficits Problem:PT Learning Assessment Goal:Demonstrate understanding of education Completed patient verbalize and/or demonstrate understanding of physical therapy education including home exercise program. Education methods include: written instructions. Physical Therapy Therapeutic Exercises Problem:PT Impaired muscle performance and/or ROM Goal:Improved Muscle Performance and/or ROM Completed patient instructed on strengthening exercises including STANDING : HEEL RAISES, TOE RAISES , KNEE FLEX, HIP EXT, HIP FLEX, HIP ABD X 10 with written cues for technique . patient instructed to perform home exercise program daily. Physical Therapy Stair Training Problem:PT Impaired gait Goal:Improved Stair Climbing Completed up and down 5 steps with 2 rail . recip pattern with supervision only Physical Therapy Gait Training Problem:PT Impaired gait Goal:Improved Gait Completed INdep amb with WW with steady recip pattern x 150' Physical Therapy Balance Training Problem:PT Impaired balance Goal:Improved Balance Completed pt demonstrates improved dynamic standing balance as evidenced by a tug of 18 Physical Therapy Transfer Training Problem:PT Impaired mobility Goal:Improved Transfers Completed SUZANNA all transfers. Pt declines to do a tub transfer [facility] Visit Details Visit Type -TELEPHONE CONTAC T Discipline -Shared Problems Problem Description Start Date Status Goals Interve ntions Discharge Disciplines: Skilled Services 10/30/2021 Active 1 goal linked to scheduled/document ed intervention 1 goal intervention scheduled/documente d in this visit Goals Goal Associated Problem Outcome Goal Met? Visit Notes Manage discharge planning Description: Patient/caregiver will verbalize understanding of ongoing discharge plan provided related to disease management, arrangements for outpatient and/or community services, obtaining medications, supplies, and DME, as needed. Discharge No Interventions Intervention Associated Problem/Goal Status Variance Visit Notes Deliver [facility] Problem:Discharge Goal:Manage discharge planning Completed Delivered [facility] on 12/21/21 for discharge date of 12/23/21. [facility] Visit Details Visit Type -SN AGENCY DC W V ISIT Discipline -Senior Care Problems Problem Description Start Date Status Goals Interve ntions Medication Education Disciplines: Skilled Services 10/30/2021 Resolved on 12/23/2021 1 goal linked to scheduled/document ed intervention 1 goal intervention scheduled/document ed in this visit Physician Specific Parameters Disciplines: Skilled Services 10/30/2021 Resolved on 12/23/2021 1 goal linked to scheduled/document ed intervention 2 goal interventions scheduled/document ed in this visit Risk for Falls Disciplines: Skilled Services 10/30/2021 Resolved on 12/23/2021 1 goal linked to scheduled/document ed intervention 1 goal intervention scheduled/document ed in this visit Pain Disciplines: Skilled Services 10/30/2021 Resolved on 12/23/2021 1 goal linked to scheduled/document ed intervention 1 goal intervention scheduled/document ed in this visit Diabetic Foot Care Disciplines: Skilled Services 10/30/2021 Resolved on 12/23/2021 1 goal linked to scheduled/document ed intervention 1 goal intervention scheduled/document ed in this visit Nutrition/Hydr ation Disciplines: Skilled Services 10/30/2021 Resolved on 12/23/2021 1 goal linked to scheduled/document ed intervention 1 goal intervention scheduled/document ed in this visit Discharge Disciplines: Skilled Services 10/30/2021 Resolved on 12/23/2021 1 goal linked to scheduled/document ed intervention 3 goal interventions scheduled/document ed in this visit SN Diabetes Disciplines: SN 10/30/2021 Resolved on 12/23/2021 1 goal linked to scheduled/document ed intervention 2 goal interventions scheduled/document ed in this visit SN Learning Assessment Disciplines: SN 10/30/2021 Resolved on 12/23/2021 1 goal linked to scheduled/document ed intervention 1 goal intervention scheduled/document ed in this visit Goals Goal Associated Problem Outcome Goal Met? Visit Notes Patient/caregiver will demonstrate ability to obtain, store, identify and administer ordered medications, keep accurate medication list in home, and adhere to medication schedule Medication Education Completed Yes Patient to maintain parameters within physician-specified ranges Physician Specific Parameters Completed Yes Manage Risk for falls Description: Patient/caregiver will verbalize knowledge of individualized fall prevention strategies by 12/28/21. Risk for Falls Completed Yes Manage Pain Description: Patient/caregiver will verbalize knowledge and understanding of appropriate techniques to control pain, including pain medication and non-pharmacological techniques. Patient will verbalize or demonstrate an acceptable level of pain as evidenced by a pain score of 6/10 and improvement in ability to perform activities of daily living to be achieved by 12/28/21. Pain Completed Yes Manage diabetic foot care Description: Patient/caregiver will demonstrate basic understanding of and compliance with diabetic self-care management as evidenced by verbalizing purpose of daily foot care and assessment by 12/28/21. Diabetic Foot Care Completed Yes Manage Nutrition/Hydration Description: Patient/caregiver will verbalize/demonstrate knowledge of prescribed diet and/or healthy nutrition. Nutrition/Hydration Completed Yes Manage discharge planning Description: Patient/caregiver will verbalize understanding of ongoing discharge plan provided related to disease management, arrangements for outpatient and/or community services, obtaining medications, supplies, and DME, as needed. Discharge Completed Yes Improved management of diabetes Description: Improve diabetic management as evidenced by patient/caregiver able to teach back 3 diabetic management strategies by 12/28/21. SN Diabetes Completed Yes Demonstrate understanding of education Description: Patient and/or caregiver will verbalize understanding of educational instruction provided. SN Learning Assessment Completed Yes Interventions Intervention Associated Problem/Goal Status Variance Visit Notes Medication Education Description: Evaluate/instruct patient/caregiver on obtaining, storing, identifying and administering ordered medications as well as keeping accurate medication list in the home and adhereing to medication schedule Problem:Medication Education Goal:Patient/caregive r will demonstrate ability to obtain, store, identify and administer ordered medications, keep accurate medication list in home, and adhere to medication schedule Completed Patient and Caregiver instructed on importance of keeping accurate medication list in home, adhering to medication schedule and proper storage of medications. Blood Sugar Description: Notify if blood sugar >250 for more than 2 consecutive days. Problem:Physician Specific Parameters Goal:Patient to maintain parameters within physician-specified ranges Completed SPO2 Description: Notify Dr. Cavazos if pulse ox is <92% at rest. Problem:Physician Specific Parameters Goal:Patient to maintain parameters within physician-specified ranges Completed Instruct on individual fall risk factors and strategies to prevent falls and injuries caused by falls. Problem:Risk for Falls Goal:Manage Risk for falls Completed SN: Patient and Caregiver instructed on Eliminating Environmental Hazards: Keep pathways clear, Keep pets out of pathways, Keep rooms and walkways well lit, Wear supportive shoes or non-skid socks and Keep frequently used items within reach Instruct on pain and instruct on strategies to control pain Problem:Pain Goal:Manage Pain Completed patient and caregiver instructed on techniques to control pain including Pharmacological measures and Non-Pharmacological measures; rest, positioning/elevation and mobility/therapeutic exercise. Monitor lower extremities for skin lesions and educate on proper foot care Problem:Diabetic Foot Care Goal:Manage diabetic foot care Completed patient and caregiver instructed on diabetic foot care including daily skin inspection, wearing proper footwear/avoiding going barefoot, wash/dry feet thoroughly, applying moisturizer, avoiding between toes and toenail care. Define patient s appetite/hydration status and implement strategies to improve compliance with prescribed diet and/or healthy nutrition. Problem:Nutrition/Hyd ration Goal:Manage Nutrition/Hydration Completed reinforced patient and caregiver on implementing strategies to comply with prescribed diet, healthy nutrition and adequate hydration Deliver [facility] Problem:Discharge Goal:Manage discharge planning Completed Delivered [facility] 12-21-21. Instruct on final discharge plan and deliver discharge instructions Problem:Discharge Goal:Manage discharge planning Completed Delivered Discharge plan: Discharge plan discussed with patient and caregiver for plan for transition to: live independently at home without ongoing services Instruct on ongoing discharge plan Problem:Discharge Goal:Manage discharge planning Completed Ongoing Discharge plan: Discharge plan discussed with patient and caregiver including frequency and duration for home SN and plan for transition to: live independently at home without ongoing services. Instruct on diabetes disease process and management of chronic condition Description: Patient has new diagnosis of diabetes. Problem:SN Diabetes Goal:Improved management of diabetes Completed patient and caregiver assessed and reinforced on diabetes disease process, how food and insulin affect blood sugar, diet education, how to carb count and recogonizing s/s of hypoglycemia and hyperglycemia as found in the diabetes self-care booklets. Ensure patient/caregiver has Living with Diabetes Booklet in home Description: SN to provide and refer to diabetes education booklet every visit. Problem:SN Diabetes Goal:Improved management of diabetes Completed Patient has diabetes self-care booklet. Instruct and educate on knowledge deficits Problem:SN Learning Assessment Goal:Demonstrate understanding of education Completed patient and caregiver verbalize and/or demonstrate understanding of nursing education completed today. Education methods include: verbal cues. Further education required to improve knowledge and compliance with diabetic care management and fall prevention/home safety strategies. documented in this encounter [facility] for referral (narrative)* Diagnostic Procedure Only (Routine) - Pending Review Specialty Diagnoses / Procedures Referred By Contac t Referred To Contact XR IMAGING Diagnoses Left wrist pain Procedures XR WRIST GENERAL 3V PA/LAT/OBL LEFT RADEX WRIST COMPLETE MINIMUM 3 VIEWS Keyla Schultz MD [address] [place] [address] Xr Imaging Referral ID Status Reason Start Date Expiration Date Visits Requested Visits Authorized [id number] Pending Review Auto-Generat ed Referral 07/26/2022 08/25/2023 1 1 * Diagnostic Procedure Only (Routine) - Pending Review Specialty Diagnoses / Procedures Referred By Contac t Referred To Contact XR IMAGING Diagnoses Chronic left shoulder pain Procedures XR SHOULDER LIMITED 2V AP/TRUE AP LEFT RADEX SHOULDER COMPLETE MINIMUM 2 VIEWS Keyla Schultz MD [address] [place] [address] Xr Imaging Referral ID Status Reason Start Date Expiration Date Visits Requested Visits Authorized [id number] Pending Review Auto-Generat ed Referral 07/26/2022 08/25/2023 1 1 * Consult, Test, Treat (Routine) - Pending Review Specialty Diagnoses / Procedures Referred By Contac t Referred To Contact Orthopedics Diagnoses Chronic left shoulder pain Procedures CONSULT TO ORTHOPAEDICS OFFICE/OUTPATIENT [facility] 60-74 MINUTES Keyla Schultz MD [address] [place] [address] Referral ID Status Reason Start Date Expiration Date Visits Requested Visits Authorized [id number] Pending Review PCP Requested Referral 07/26/2022 07/26/2023 1 1 [facility]No reason for referral information availableWMercy Health [facility] Work Phone: Reason for visit Narrative* Diagnostic Procedure Only (Routine) - Closed Specialty Diagnoses / Procedures Referred By Contac t Referred To Contact XR IMAGING Diagnoses Injury of left foot, initial encounter Injury of right foot, initial encounter Pedal edema Foot pain, bilateral Procedures XR FOOT GENERAL 3V AP/LAT/OBL BILATERAL RADEX FOOT COMPLETE MINIMUM 3 VIEWS Keyla Schultz MD [address] [place] [address] Phone: tel: fax: [place] [id number] Referral ID Status Reason Start Date Expiration Date V isits Requested Visits Authorized [id number] Closed Auto-Generate d Referral 09/25/2024 10/25/2025 1 1 [facility] Advance Directives Documents on File Type Date Recorded Patient Grievance Manager Expl anation ACP-Advance Directive ACP-Power of Rigger Third Documents on File Type Date Recorded Patient Grievance Manager Expl anation Advance Directive(s) 10/25/2021 10:18 PM Advance Directive(s) 01/29/2021 2:53 AM Advance Directive(s) 07/22/2020 12:14 AM Advance Directive(s) 07/23/2019 2:57 AM Advance Directive(s) 01/17/2019 1:40 AM Advance Directive(s) 03/08/2017 2:25 AM Advance Directive(s) 01/14/2017 2:13 AM Latest Code Status on File Code Status Date Activated Date Inactivated Comments Full Code 10/30/2021 2:05 PM Documents on File Type Date Recorded Patient Grievance Manager Expl anation Advance Directive(s) 11/09/2021 6:12 AM Advance Directive(s) 10/25/2021 10:18 PM Advance Directive(s) 01/29/2021 2:53 AM Advance Directive(s) 07/22/2020 12:14 AM Advance Directive(s) 07/23/2019 2:57 AM Advance Directive(s) 01/17/2019 1:40 AM Advance Directive(s) 03/08/2017 2:25 AM Advance Directive(s) 01/14/2017 2:13 AM Latest Code Status on File Code Status Date Activated Date Inactivated Comments Full Code 10/30/2021 2:05 PM 11/09/2021 5:15 AM Documents on File Type Date Recorded Patient Grievance Manager Expl anation Advance Directive(s) 11/09/2021 6:12 AM Advance Directive(s) 10/25/2021 10:18 PM Advance Directive(s) 01/29/2021 2:53 AM Advance Directive(s) 07/22/2020 12:14 AM Advance Directive(s) 07/23/2019 2:57 AM Advance Directive(s) 01/17/2019 1:40 AM Advance Directive(s) 03/08/2017 2:25 AM Advance Directive(s) 01/14/2017 2:13 AM Latest Code Status on File Code Status Date Activated Date Inactivated Comments Full Code 10/30/2021 2:05 PM 11/09/2021 5:15 AM Advance Directive Response Recorded Date/ Time Name of Medical Power of Rigger Third SonJose fernandez January 04, 2022 11:53am Living Will Yes January 04, 2022 11:53am Power of Rigger Third Yes January 04 11:53am Documents on File Type Date Recorded Patient Grievance Manager Expl anation Advance Directive(s) 01/03/2022 4:31 AM Advance Directive(s) 11/09/2021 6:12 AM Advance Directive(s) 10/25/2021 10:18 PM Advance Directive(s) 01/29/2021 2:53 AM Advance Directive(s) 07/22/2020 12:14 AM Advance Directive(s) 07/23/2019 2:57 AM Advance Directive(s) 01/17/2019 1:40 AM Advance Directive(s) 03/08/2017 2:25 AM Advance Directive(s) 01/14/2017 2:13 AM Latest Code Status on File Code Status Date Activated Date Inactivated Comments Full Code 10/30/2021 2:05 PM 11/09/2021 5:15 AM Latest Code Status on File Code Status Date Activated Date Inactivated Comments Full Code 10/30/2021 2:05 PM 11/09/2021 5:15 AM Date Activated Date Inactivated Comments 10/30/2021 2:05 PM 11/09/2021 5:15 AM Date Activated Date Inactivated Comments 10/30/2021 2:05 PM 11/09/2021 5:15 AM Advance Directive Response Recorded Date/ Time Living Will No October 15, 2024 11:18am Do you have a Healthcare Power of Rigger Third? Yes October 15, 2024 11:18am Name of Medical Power of Rigger Third SON October 15, 2024 11:18am Advance Directive Response Recorded Date/ Time Living Will No October 15, 2024 7:57pm Do you have a Healthcare Power of Rigger Third? Yes October 15, 2024 7:57pm Name of Medical Power of Rigger Third SON October 15, 2024 7:57pm Advance Directive Response Recorded Date/ Time Living Will No October 15, 2024 7:57pm Do you have a Healthcare Power of Rigger Third? Yes October 15, 2024 7:57pm Name of Medical Power of Rigger Third SON October 15, 2024 7:57pm Living Will Yes October 30, 2024 9:42am Do you have a Healthcare Power of Rigger Third? Yes October 30, 2024 9:42am Name of Medical Power of Rigger Third [facility] October 30, 2024 9:42am Advance Directive Response Recorded Date/ Time Living Will No October 15, 2024 7:57pm Do you have a Healthcare Power of Rigger Third? Yes October 15, 2024 7:57pm Name of Medical Power of Rigger Third SON October 15, 2024 7:57pm Living Will Yes October 30, 2024 3:08pm Do you have a Healthcare Power of Rigger Third? Yes October 30, 2024 3:08pm Name of Medical Power of Rigger Third [place] October 30, 2024 3:08pm Do you have a Healthcare Power of Rigger Third? No November 26, 2024 4:30pm Advance Directive Response Recorded Date/ Time Living Will No October 15, 2024 7:57pm Do you have a Healthcare Power of Rigger Third? Yes October 15, 2024 7:57pm Name of Medical Power of Rigger Third SON October 15, 2024 7:57pm Living Will Yes October 30, 2024 3:08pm Do you have a Healthcare Power of Rigger Third? Yes October 30, 2024 3:08pm Name of Medical Power of Rigger Third [place] October 30, 2024 3:08pm Do you have a Healthcare Power of Rigger Third? Yes November 26, 2024 10:53pm Name of Medical Power of Rigger Third [place] Wheeler November 26, 2024 10:53pm Summary Purpose Family History Relationship Condition Age at Onset Recorded Date/T jeison father Tuberculosis Unknown Reason for Referral Specialty Diagnoses / Procedures Referred By Contac t Referred To Contact Diagnoses Diabetes mellitus type 2 with ketoacidosis, uncontrolled (HCC) Procedures CONSULT TO DIABETES EDUCATION OFFICE/OUTPATIENT [facility] 60-74 MINUTES Vu Mcelroy MD [address] [place] [address] Referral ID Status Reason Start Date Expiration Date Visits Requested Visits Authorized [id number] Pending Review PCP Requested Referral 11/24/2021 11/24/2022 1 1 Specialty Diagnoses / Procedures Referred By Contac t Referred To Contact Diagnoses Chronic low back pain, unspecified back pain laterality, unspecified whether sciatica present Type 2 diabetes mellitus without complication, with long-term current use of insulin (HCC) DDD (degenerative disc disease), lumbar Nonintractable epilepsy without status epilepticus, unspecified epilepsy type (HCC) Generalized weakness Procedures CONSULT TO [facility] Keyla Schultz MD [address] [place] [address] [address] [place] [id number] Referral ID Status Reason Start Date Expiration Date Visits Requested Visits Authorized [id number] Authorized PCP Requested Referral 09/01/2023 11/30/2023 1 1 Chief Complaint and Reason for Visit Chief Complaint back pain Chief Complaint Admit Date GENERAL WEAKNESS October 15, 2024 6:2 0pm FTT October 15, 2024 6:2 9pm Reason for Visit Admit Date Failure to thrive October 15, 2024 6:2 9pm History of diabetes mellitus, type II [facility] 2024 6:29pm Chief Complaint Admit Date GENERAL WEAKNESS October 15, 2024 6:2 0pm FTT October 15, 2024 6:2 9pm Failure to thrive October 16, 2024 9:57 am Failure to thrive October 17, 2024 3:35 pm Failure to thrive October 18, 2024 2:05 pm Chief Complaint Admit Date GENERAL WEAKNESS October 15, 2024 6:2 0pm FTT October 15, 2024 6:2 9pm Failure to thrive October 16, 2024 9:57 am Failure to thrive October 17, 2024 3:35 pm Failure to thrive October 18, 2024 2:05 pm FAILURE TO THRIVE, CHRONIC BACK PAIN Apr [facility] 2024 11:15am Chief Complaint Admit Date GENERAL WEAKNESS October 15, 2024 6:2 0pm FTT October 15, 2024 6:2 9pm Failure to thrive October 16, 2024 9:57 am Failure to thrive October 17, 2024 3:35 pm Failure to thrive October 18, 2024 2:05 pm FAILURE TO THRIVE, CHRONIC BACK PAIN Apr va 2024 11:15am FAILURE TO THRIVE, CHRONIC BACK PAIN Apr va 2024 11:18am FAILURE TO THRIVE, CHRONIC BACK PAIN Apr [place] 2024 11:59am FAILURE TO THRIVE, CHRONIC BACK PAIN Apr [place] 2024 11:00am FAILURE TO THRIVE, CHRONIC BACK PAIN Apr il 2024 11:42am EKG November 02, 2024 3:5 3pm FAILURE TO THRIVE, CHRONIC BACK PAIN Apr il 2024 12:21pm FAILURE TO THRIVE, CHRONIC BACK PAIN Apr il 2024 10:39am FAILURE TO THRIVE, CHRONIC BACK PAIN Apr il 2024 7:22am FAILURE TO THRIVE, CHRONIC BACK PAIN Apr il 2024 2:49pm FAILURE TO THRIVE, CHRONIC BACK PAIN Apr il 2024 7:53pm FAILURE TO THRIVE, CHRONIC BACK PAIN Apr il 2024 2:47pm FAILURE TO THRIVE, CHRONIC BACK PAIN Apr il 2024 11:57am FALL WITH BACK PAIN November 26, 2024 9:39p m Reason for Visit Admit Date Failure to thrive October 15, 2024 6:2 9pm History of diabetes mellitus, type II [facility] 2024 6:29pm Debility October 30, 2024 11: 15am 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 October 30, 2024 11:15am Acute exacerbation of chronic low back p ain October 30, 2024 11:15am Fall from slip, trip, or stumble October 162024 11:15am Chief Complaint Admit Date GENERAL WEAKNESS October 15, 2024 6:2 0pm FTT October 15, 2024 6:2 9pm Failure to thrive October 16, 2024 9:57 am Failure to thrive October 17, 2024 3:35 pm Failure to thrive October 18, 2024 2:05 pm FAILURE TO THRIVE, CHRONIC BACK PAIN Apr il 2024 11:15am FAILURE TO THRIVE, CHRONIC BACK PAIN Apr il 2024 11:18am FAILURE TO THRIVE, CHRONIC BACK PAIN Apr il 2024 11:59am FAILURE TO THRIVE, CHRONIC BACK PAIN Apr il 2024 11:00am FAILURE TO THRIVE, CHRONIC BACK PAIN Apr il 2024 11:42am EKG November 02, 2024 3:5 3pm FAILURE TO THRIVE, CHRONIC BACK PAIN Apr il 2024 12:21pm FAILURE TO THRIVE, CHRONIC BACK PAIN Apr il 2024 10:39am FAILURE TO THRIVE, CHRONIC BACK PAIN Apr il 2024 7:22am FAILURE TO THRIVE, CHRONIC BACK PAIN Apr il 2024 2:49pm FAILURE TO THRIVE, CHRONIC BACK PAIN Apr il 2024 7:53pm FAILURE TO THRIVE, CHRONIC BACK PAIN Apr il 2024 2:47pm FAILURE TO THRIVE, CHRONIC BACK PAIN Apr il 2024 11:57am FALL WITH BACK PAIN November 26, 2024 9:39p m FALL WITH BACK PAIN November 27, 2024 4:28p m FALL WITH BACK PAIN November 28, 2024 3:35p m Reason for Visit Admit Date Failure to thrive October 15, 2024 6:2 9pm History of diabetes mellitus, type II [facility] 2024 6:29pm Debility October 30, 2024 11: 15am 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 October 30, 2024 11:15am Acute exacerbation of chronic low back p ain October 30, 2024 11:15am Fall from slip, trip, or stumble October [id number] 11:15am Accidental fall November 26, 2024 9:39p m Acute lumbar myofascial strain November 26, 2024 9:39pm Contusion of buttock November 26, 2024 9:39 pm Debility November 26, 2024 9:39p m History of back surgery November 26, 2024 9 :39pm History of seizure disorder November 26 9:39pm Hx of laminectomy November 26, 2024 9:39p m 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 DATE CREATED AUTHOR AUTHOR'S ORGANIZ ATION 12/14/2024 [facility] DATE CREATED AUTHOR AUTHOR'S ORGANIZ ATION 12/16/2024 [facility] Source Comments (unrecognize d section and content) In the event this informatio n is protected by the Federal Confidentiality of Alcohol and Drug Abuse Patient Records regulations: The Federal rules restrict any use of the information to criminally investigate or prosecute any alcohol or drug abuse patient.[facility] the event this information is protected by the Federal Confidentiality of Alcohol and Drug Abuse Patient Records regulations: The Federal rules restrict any use of the information to criminally investigate or prosecute any alcohol or drug abuse patient.[facility] the event this information is protected by the Federal Confidentiality of Alcohol and Drug Abuse Patient Records regulations: The Federal rules restrict any use of the information to criminally investigate or prosecute any alcohol or drug abuse patient.[facility] the event this information is protected by the Federal Confidentiality of Alcohol and Drug Abuse Patient Records regulations: The Federal rules restrict any use of the information to criminally investigate or prosecute any alcohol or drug abuse patient.[facility] the event this information is protected by the Federal Confidentiality of Alcohol and Drug Abuse Patient Records regulations: The Federal rules restrict any use of the information to criminally investigate or prosecute any alcohol or drug abuse patient.[facility] the event this information is protected by the Federal Confidentiality of Alcohol and Drug Abuse Patient Records regulations: The Federal rules restrict any use of the information to criminally investigate or prosecute any alcohol or drug abuse patient.[facility] the event this information is protected by the Federal Confidentiality of Alcohol and Drug Abuse Patient Records regulations: The Federal rules restrict any use of the information to criminally investigate or prosecute any alcohol or drug abuse patient.[facility] the event this information is protected by the Federal Confidentiality of Alcohol and Drug Abuse Patient Records regulations: The Federal rules restrict any use of the information to criminally investigate or prosecute any alcohol or drug abuse patient.[facility] the event this information is protected by the Federal Confidentiality of Alcohol and Drug Abuse Patient Records regulations: The Federal rules restrict any use of the information to criminally investigate or prosecute any alcohol or drug abuse patient.[facility] the event this information is protected by the Federal Confidentiality of Alcohol and Drug Abuse Patient Records regulations: The Federal rules restrict any use of the information to criminally investigate or prosecute any alcohol or drug abuse patient.[facility] the event this information is protected by the Federal Confidentiality of Alcohol and Drug Abuse Patient Records regulations: The Federal rules restrict any use of the information to criminally investigate or prosecute any alcohol or drug abuse patient.[facility] the event this information is protected by the Federal Confidentiality of Alcohol and Drug Abuse Patient Records regulations: The Federal rules restrict any use of the information to criminally investigate or prosecute any alcohol or drug abuse patient.[facility] the event this information is protected by the Federal Confidentiality of Alcohol and Drug Abuse Patient Records regulations: The Federal rules restrict any use of the information to criminally investigate or prosecute any alcohol or drug abuse patient.[facility] the event this information is protected by the Federal Confidentiality of Alcohol and Drug Abuse Patient Records regulations: The Federal rules restrict any use of the information to criminally investigate or prosecute any alcohol or drug abuse patient.[facility] the event this information is protected by the Federal Confidentiality of Alcohol and Drug Abuse Patient Records regulations: The Federal rules restrict any use of the information to criminally investigate or prosecute any alcohol or drug abuse patient.[facility] Center[facility] the event this information is protected by the Federal Confidentiality of Alcohol and Drug Abuse Patient Records regulations: The Federal rules restrict any use of the information to criminally investigate or prosecute any alcohol or drug abuse patient.[facility] Center[facility] the event this information is protected by the Federal Confidentiality of Alcohol and Drug Abuse Patient Records regulations: The Federal rules restrict any use of the information to criminally investigate or prosecute any alcohol or drug abuse patient.[facility] CenterIn the event this information is protected by the Federal Confidentiality of Alcohol and Drug Abuse Patient Records regulations: The Federal rules restrict any use of the information to criminally investigate or prosecute any alcohol or drug abuse patient.[facility] the event this information is protected by the Federal Confidentiality of Alcohol and Drug Abuse Patient Records regulations: The Federal rules restrict any use of the information to criminally investigate or prosecute any alcohol or drug abuse patient.[facility] CenterIn the event this information is protected by the Federal Confidentiality of Alcohol and Drug Abuse Patient Records regulations: The Federal rules restrict any use of the information to criminally investigate or prosecute any alcohol or drug abuse patient.[facility]In the event this information is protected by the Federal Confidentiality of Alcohol and Drug Abuse Patient Records regulations: The Federal rules restrict any use of the information to criminally investigate or prosecute any alcohol or drug abuse patient.[facility]In the event this information is protected by the Federal Confidentiality of Alcohol and Drug Abuse Patient Records regulations: The Federal rules restrict any use of the information to criminally investigate or prosecute any alcohol or drug abuse patient.[facility]In the event this information is protected by the Federal Confidentiality of Alcohol and Drug Abuse Patient Records regulations: The Federal rules restrict any use of the information to criminally investigate or prosecute any alcohol or drug abuse patient.[facility] CenterIn the event this information is protected by the Federal Confidentiality of Alcohol and Drug Abuse Patient Records regulations: The Federal rules restrict any use of the information to criminally investigate or prosecute any alcohol or drug abuse patient.[facility] CenterIn the event this information is protected by the Federal Confidentiality of Alcohol and Drug Abuse Patient Records regulations: The Federal rules restrict any use of the information to criminally investigate or prosecute any alcohol or drug abuse patient.[facility] CenterIn the event this information is protected by the Federal Confidentiality of Alcohol and Drug Abuse Patient Records regulations: The Federal rules restrict any use of the information to criminally investigate or prosecute any alcohol or drug abuse patient.[facility] CenterIn the event this information is protected by the Federal Confidentiality of Alcohol and Drug Abuse Patient Records regulations: The Federal rules restrict any use of the information to criminally investigate or prosecute any alcohol or drug abuse patient.[facility]In the event this information is protected by the Federal Confidentiality of Alcohol and Drug Abuse Patient Records regulations: The Federal rules restrict any use of the information to criminally investigate or prosecute any alcohol or drug abuse patient.[facility]In the event this information is protected by the Federal Confidentiality of Alcohol and Drug Abuse Patient Records regulations: The Federal rules restrict any use of the information to criminally investigate or prosecute any alcohol or drug abuse patient.[facility]In the event this information is protected by the Federal Confidentiality of Alcohol and Drug Abuse Patient Records regulations: The Federal rules restrict any use of the information to criminally investigate or prosecute any alcohol or drug abuse patient.[facility]In the event this information is protected by the Federal Confidentiality of Alcohol and Drug Abuse Patient Records regulations: The Federal rules restrict any use of the information to criminally investigate or prosecute any alcohol or drug abuse patient.[facility] CenterIn the event this information is protected by the Federal Confidentiality of Alcohol and Drug Abuse Patient Records regulations: The Federal rules restrict any use of the information to criminally investigate or prosecute any alcohol or drug abuse patient.[facility] CenterIn the event this information is protected by the Federal Confidentiality of Alcohol and Drug Abuse Patient Records regulations: The Federal rules restrict any use of the information to criminally investigate or prosecute any alcohol or drug abuse patient.[facility] CenterIn the event this information is protected by the Federal Confidentiality of Alcohol and Drug Abuse Patient Records regulations: The Federal rules restrict any use of the information to criminally investigate or prosecute any alcohol or drug abuse patient.[facility] CenterIn the event this information is protected by the Federal Confidentiality of Alcohol and Drug Abuse Patient Records regulations: The Federal rules restrict any use of the information to criminally investigate or prosecute any alcohol or drug abuse patient.[facility]In the event this information is protected by the Federal Confidentiality of Alcohol and Drug Abuse Patient Records regulations: The Federal rules restrict any use of the information to criminally investigate or prosecute any alcohol or drug abuse patient.[facility] CenterIn the event this information is protected by the Federal Confidentiality of Alcohol and Drug Abuse Patient Records regulations: The Federal rules restrict any use of the information to criminally investigate or prosecute any alcohol or drug abuse patient.[facility] CenterIn the event this information is protected by the Federal Confidentiality of Alcohol and Drug Abuse Patient Records regulations: The Federal rules restrict any use of the information to criminally investigate or prosecute any alcohol or drug abuse patient.[facility]In the event this information is protected by the Federal Confidentiality of Alcohol and Drug Abuse Patient Records regulations: The Federal rules restrict any use of the information to criminally investigate or prosecute any alcohol or drug abuse patient.[facility] CenterIn the event this information is protected by the Federal Confidentiality of Alcohol and Drug Abuse Patient Records regulations: The Federal rules restrict any use of the information to criminally investigate or prosecute any alcohol or drug abuse patient.[facility] CenterIn the event this information is protected by the Federal Confidentiality of Alcohol and Drug Abuse Patient Records regulations: The Federal rules restrict any use of the information to criminally investigate or prosecute any alcohol or drug abuse patient.[facility]In the event this information is protected by the Federal Confidentiality of Alcohol and Drug Abuse Patient Records regulations: The Federal rules restrict any use of the information to criminally investigate or prosecute any alcohol or drug abuse patient.[facility]In the event this information is protected by the Federal Confidentiality of Alcohol and Drug Abuse Patient Records regulations: The Federal rules restrict any use of the information to criminally investigate or prosecute any alcohol or drug abuse patient.[facility]In the event this information is protected by the Federal Confidentiality of Alcohol and Drug Abuse Patient Records regulations: The Federal rules restrict any use of the information to criminally investigate or prosecute any alcohol or drug abuse patient.[facility]In the event this information is protected by the Federal Confidentiality of Alcohol and Drug Abuse Patient Records regulations: The Federal rules restrict any use of the information to criminally investigate or prosecute any alcohol or drug abuse patient.[facility]In the event this information is protected by the Federal Confidentiality of Alcohol and Drug Abuse Patient Records regulations: The Federal rules restrict any use of the information to criminally investigate or prosecute any alcohol or drug abuse patient.[facility] CenterIn the event this information is protected by the Federal Confidentiality of Alcohol and Drug Abuse Patient Records regulations: The Federal rules restrict any use of the information to criminally investigate or prosecute any alcohol or drug abuse patient.[facility]In the event this information is protected by the Federal Confidentiality of Alcohol and Drug Abuse Patient Records regulations: The Federal rules restrict any use of the information to criminally investigate or prosecute any alcohol or drug abuse patient.[facility]In the event this information is protected by the Federal Confidentiality of Alcohol and Drug Abuse Patient Records regulations: The Federal rules restrict any use of the information to criminally investigate or prosecute any alcohol or drug abuse patient.[facility]In the event this information is protected by the Federal Confidentiality of Alcohol and Drug Abuse Patient Records regulations: The Federal rules restrict any use of the information to criminally investigate or prosecute any alcohol or drug abuse patient.[facility]In the event this information is protected by the Federal Confidentiality of Alcohol and Drug Abuse Patient Records regulations: The Federal rules restrict any use of the information to criminally investigate or prosecute any alcohol or drug abuse patient.[facility]In the event this information is protected by the Federal Confidentiality of Alcohol and Drug Abuse Patient Records regulations: The Federal rules restrict any use of the information to criminally investigate or prosecute any alcohol or drug abuse patient.[facility]In the event this information is protected by the Federal Confidentiality of Alcohol and Drug Abuse Patient Records regulations: The Federal rules restrict any use of the information to criminally investigate or prosecute any alcohol or drug abuse patient.[facility]In the event this information is protected by the Federal Confidentiality of Alcohol and Drug Abuse Patient Records regulations: The Federal rules restrict any use of the information to criminally investigate or prosecute any alcohol or drug abuse patient.[facility]In the event this information is protected by the Federal Confidentiality of Alcohol and Drug Abuse Patient Records regulations: The Federal rules restrict any use of the information to criminally investigate or prosecute any alcohol or drug abuse patient.[facility]In the event this information is protected by the Federal Confidentiality of Alcohol and Drug Abuse Patient Records regulations: The Federal rules restrict any use of the information to criminally investigate or prosecute any alcohol or drug abuse patient.[facility]In the event this information is protected by the Federal Confidentiality of Alcohol and Drug Abuse Patient Records regulations: The Federal rules restrict any use of the information to criminally investigate or prosecute any alcohol or drug abuse patient.[facility]In the event this information is protected by the Federal Confidentiality of Alcohol and Drug Abuse Patient Records regulations: The Federal rules restrict any use of the information to criminally investigate or prosecute any alcohol or drug abuse patient.[facility]In the event this information is protected by the Federal Confidentiality of Alcohol and Drug Abuse Patient Records regulations: The Federal rules restrict any use of the information to criminally investigate or prosecute any alcohol or drug abuse patient.[facility]In the event this information is protected by the Federal Confidentiality of Alcohol and Drug Abuse Patient Records regulations: The Federal rules restrict any use of the information to criminally investigate or prosecute any alcohol or drug abuse patient.[facility]In the event this information is protected by the Federal Confidentiality of Alcohol and Drug Abuse Patient Records regulations: The Federal rules restrict any use of the information to criminally investigate or prosecute any alcohol or drug abuse patient.[facility]In the event this information is protected by the Federal Confidentiality of Alcohol and Drug Abuse Patient Records regulations: The Federal rules restrict any use of the information to criminally investigate or prosecute any alcohol or drug abuse patient.[facility]In the event this information is protected by the Federal Confidentiality of Alcohol and Drug Abuse Patient Records regulations: The Federal rules restrict any use of the information to criminally investigate or prosecute any alcohol or drug abuse patient.[facility]In the event this information is protected by the Federal Confidentiality of Alcohol and Drug Abuse Patient Records regulations: The Federal rules restrict any use of the information to criminally investigate or prosecute any alcohol or drug abuse patient.[facility]In the event this information is protected by the Federal Confidentiality of Alcohol and Drug Abuse Patient Records regulations: The Federal rules restrict any use of the information to criminally investigate or prosecute any alcohol or drug abuse patient.[facility]In the event this information is protected by the Federal Confidentiality of Alcohol and Drug Abuse Patient Records regulations: The Federal rules restrict any use of the information to criminally investigate or prosecute any alcohol or drug abuse patient.[facility]In the event this information is protected by the Federal Confidentiality of Alcohol and Drug Abuse Patient Records regulations: The Federal rules restrict any use of the information to criminally investigate or prosecute any alcohol or drug abuse patient.[facility]In the event this information is protected by the Federal Confidentiality of Alcohol and Drug Abuse Patient Records regulations: The Federal rules restrict any use of the information to criminally investigate or prosecute any alcohol or drug abuse patient.[facility]In the event this information is protected by the Federal Confidentiality of Alcohol and Drug Abuse Patient Records regulations: The Federal rules restrict any use of the information to criminally investigate or prosecute any alcohol or drug abuse patient.[facility]In the event this information is protected by the Federal Confidentiality of Alcohol and Drug Abuse Patient Records regulations: The Federal rules restrict any use of the information to criminally investigate or prosecute any alcohol or drug abuse patient.[facility]In the event this information is protected by the Federal Confidentiality of Alcohol and Drug Abuse Patient Records regulations: The Federal rules restrict any use of the information to criminally investigate or prosecute any alcohol or drug abuse patient.[facility]In the event this information is protected by the Federal Confidentiality of Alcohol and Drug Abuse Patient Records regulations: The Federal rules restrict any use of the information to criminally investigate or prosecute any alcohol or drug abuse patient.[facility]In the event this information is protected by the Federal Confidentiality of Alcohol and Drug Abuse Patient Records regulations: The Federal rules restrict any use of the information to criminally investigate or prosecute any alcohol or drug abuse patient.[facility]In the event this information is protected by the Federal Confidentiality of Alcohol and Drug Abuse Patient Records regulations: The Federal rules restrict any use of the information to criminally investigate or prosecute any alcohol or drug abuse patient.[facility]In the event this information is protected by the Federal Confidentiality of Alcohol and Drug Abuse Patient Records regulations: The Federal rules restrict any use of the information to criminally investigate or prosecute any alcohol or drug abuse patient.[facility]In the event this information is protected by the Federal Confidentiality of Alcohol and Drug Abuse Patient Records regulations: The Federal rules restrict any use of the information to criminally investigate or prosecute any alcohol or drug abuse patient.[facility]In the event this information is protected by the Federal Confidentiality of Alcohol and Drug Abuse Patient Records regulations: The Federal rules restrict any use of the information to criminally investigate or prosecute any alcohol or drug abuse patient.[facility]In the event this information is protected by the Federal Confidentiality of Alcohol and Drug Abuse Patient Records regulations: The Federal rules restrict any use of the information to criminally investigate or prosecute any alcohol or drug abuse patient.[facility]In the event this information is protected by the Federal Confidentiality of Alcohol and Drug Abuse Patient Records regulations: The Federal rules restrict any use of the information to criminally investigate or prosecute any alcohol or drug abuse patient.[facility]In the event this information is protected by the Federal Confidentiality of Alcohol and Drug Abuse Patient Records regulations: The Federal rules restrict any use of the information to criminally investigate or prosecute any alcohol or drug abuse patient.[facility]In the event this information is protected by the Federal Confidentiality of Alcohol and Drug Abuse Patient Records regulations: The Federal rules restrict any use of the information to criminally investigate or prosecute any alcohol or drug abuse patient.[facility]In the event this information is protected by the Federal Confidentiality of Alcohol and Drug Abuse Patient Records regulations: The Federal rules restrict any use of the information to criminally investigate or prosecute any alcohol or drug abuse patient.[facility]In the event this information is protected by the Federal Confidentiality of Alcohol and Drug Abuse Patient Records regulations: The Federal rules restrict any use of the information to criminally investigate or prosecute any alcohol or drug abuse patient.[facility]In the event this information is protected by the Federal Confidentiality of Alcohol and Drug Abuse Patient Records regulations: The Federal rules restrict any use of the information to criminally investigate or prosecute any alcohol or drug abuse patient.[facility]In the event this information is protected by the Federal Confidentiality of Alcohol and Drug Abuse Patient Records regulations: The Federal rules restrict any use of the information to criminally investigate or prosecute any alcohol or drug abuse patient.[facility]In the event this information is protected by the Federal Confidentiality of Alcohol and Drug Abuse Patient Records regulations: The Federal rules restrict any use of the information to criminally investigate or prosecute any alcohol or drug abuse patient.[facility]In the event this information is protected by the Federal Confidentiality of Alcohol and Drug Abuse Patient Records regulations: The Federal rules restrict any use of the information to criminally investigate or prosecute any alcohol or drug abuse patient.[facility]In the event this information is protected by the Federal Confidentiality of Alcohol and Drug Abuse Patient Records regulations: The Federal rules restrict any use of the information to criminally investigate or prosecute any alcohol or drug abuse patient.[facility]In the event this information is protected by the Federal Confidentiality of Alcohol and Drug Abuse Patient Records regulations: The Federal rules restrict any use of the information to criminally investigate or prosecute any alcohol or drug abuse patient.[facility]In the event this information is protected by the Federal Confidentiality of Alcohol and Drug Abuse Patient Records regulations: The Federal rules restrict any use of the information to criminally investigate or prosecute any alcohol or drug abuse patient.[facility]In the event this information is protected by the Federal Confidentiality of Alcohol and Drug Abuse Patient Records regulations: The Federal rules restrict any use of the information to criminally investigate or prosecute any alcohol or drug abuse patient.[facility]In the event this information is protected by the Federal Confidentiality of Alcohol and Drug Abuse Patient Records regulations: The Federal rules restrict any use of the information to criminally investigate or prosecute any alcohol or drug abuse patient.[facility]In the event this information is protected by the Federal Confidentiality of Alcohol and Drug Abuse Patient Records regulations: The Federal rules restrict any use of the information to criminally investigate or prosecute any alcohol or drug abuse patient.[facility]In the event this information is protected by the Federal Confidentiality of Alcohol and Drug Abuse Patient Records regulations: The Federal rules restrict any use of the information to criminally investigate or prosecute any alcohol or drug abuse patient.[facility]In the event this information is protected by the Federal Confidentiality of Alcohol and Drug Abuse Patient Records regulations: The Federal rules restrict any use of the information to criminally investigate or prosecute any alcohol or drug abuse patient.[facility]In the event this information is protected by the Federal Confidentiality of Alcohol and Drug Abuse Patient Records regulations: The Federal rules restrict any use of the information to criminally investigate or prosecute any alcohol or drug abuse patient.[facility]In the event this information is protected by the Federal Confidentiality of Alcohol and Drug Abuse Patient Records regulations: The Federal rules restrict any use of the information to criminally investigate or prosecute any alcohol or drug abuse patient.[facility]In the event this information is protected by the Federal Confidentiality of Alcohol and Drug Abuse Patient Records regulations: The Federal rules restrict any use of the information to criminally investigate or prosecute any alcohol or drug abuse patient.[facility]In the event this information is protected by the Federal Confidentiality of Alcohol and Drug Abuse Patient Records regulations: The Federal rules restrict any use of the information to criminally investigate or prosecute any alcohol or drug abuse patient.[facility]In the event this information is protected by the Federal Confidentiality of Alcohol and Drug Abuse Patient Records regulations: The Federal rules restrict any use of the information to criminally investigate or prosecute any alcohol or drug abuse patient.[facility]In the event this information is protected by the Federal Confidentiality of Alcohol and Drug Abuse Patient Records regulations: The Federal rules restrict any use of the information to criminally investigate or prosecute any alcohol or drug abuse patient.[facility] CenterIn the event this information is protected by the Federal Confidentiality of Alcohol and Drug Abuse Patient Records regulations: The Federal rules restrict any use of the information to criminally investigate or prosecute any alcohol or drug abuse patient.[facility] Center[facility] the event this information is protected by the Federal Confidentiality of Alcohol and Drug Abuse Patient Records regulations: The Federal rules restrict any use of the information to criminally investigate or prosecute any alcohol or drug abuse patient.[facility] Center[facility] the event this information is protected by the Federal Confidentiality of Alcohol and Drug Abuse Patient Records regulations: The Federal rules restrict any use of the information to criminally investigate or prosecute any alcohol or drug abuse patient.[facility] Center[facility] the event this information is protected by the Federal Confidentiality of Alcohol and Drug Abuse Patient Records regulations: The Federal rules restrict any use of the information to criminally investigate or prosecute any alcohol or drug abuse patient.[facility] Center[facility] the event this information is protected by the Federal Confidentiality of Alcohol and Drug Abuse Patient Records regulations: The Federal rules restrict any use of the information to criminally investigate or prosecute any alcohol or drug abuse patient.[facility] CenterIn the event this information is protected by the Federal Confidentiality of Alcohol and Drug Abuse Patient Records regulations: The Federal rules restrict any use of the information to criminally investigate or prosecute any alcohol or drug abuse patient.[facility] CenterIn the event this information is protected by the Federal Confidentiality of Alcohol and Drug Abuse Patient Records regulations: The Federal rules restrict any use of the information to criminally investigate or prosecute any alcohol or drug abuse patient.[facility] CenterIn the event this information is protected by the Federal Confidentiality of Alcohol and Drug Abuse Patient Records regulations: The Federal rules restrict any use of the information to criminally investigate or prosecute any alcohol or drug abuse patient.[facility] CenterIn the event this information is protected by the Federal Confidentiality of Alcohol and Drug Abuse Patient Records regulations: The Federal rules restrict any use of the information to criminally investigate or prosecute any alcohol or drug abuse patient.[facility] CenterIn the event this information is protected by the Federal Confidentiality of Alcohol and Drug Abuse Patient Records regulations: The Federal rules restrict any use of the information to criminally investigate or prosecute any alcohol or drug abuse patient.[facility] Reason for Visit (unrecogniz ed section and content) Reason Comments Home Care MD to follow Reason Comments Home Care Confirmation Call Reason Comments Home Care PT eval Reason Comments Information Reason Comments Home assisted health aide ser vices discontinued Reason Comments Consult Specialty Diagnoses / Procedures Referred By Ayan t Referred To Contact Endocrinology Diagnoses DKA (diabetic ketoacidosis) (HCC) Diabetes mellitus type 2 with ketoacidosis, uncontrolled (HCC) Procedures CONSULT TO ENDOCRINOLOGY OFFICE/OUTPATIENT NEW HIGH MDM 60-74 MINUTES Misael Crabtree PA-C [address] [place] [address] Referral ID Status Reason Start Date Expiration Date Visits Requested Visits Authorized [id number] Pending Review PCP Requested Referral 10/27/2021 10/27/2022 1 1 Reason Comments Home Care continued home PT Reason Comments Results Reason Comments ED Follow-up Reason Comments Home Care FYI discharge Reason Comments Received Outside Medical Records ED [facility] Reason Onset Date Comments Refill Request 12/22/2021 Reason Comments Refill Request Reason Comments Patient Question Reason Comments Follow Up Specialty Diagnoses / Procedures Referred By Ayan t Referred To Contact Endocrinology Diagnoses DKA (diabetic ketoacidosis) (HCC) Diabetes mellitus type 2 with ketoacidosis, uncontrolled (HCC) Procedures CONSULT TO ENDOCRINOLOGY OFFICE/OUTPATIENT [facility] 60-74 MINUTES Misael Crabtree PA-C [address] [place] [address] Reason Onset Date Comments Refill Request 03/24/2022 Reason Onset Date Comments Refill Request 07/06/2022 Reason Comments Follow Up insomnia Reason Comments Medication Request [facility] 08/13/2022 G eneric Medication are free from mail order Reason Onset Date Comments Refill Request 11/24/2022 Reason Comments Received Outside Medical Records Results Reason Comments Initial Consult [facility] [id number] Reason Onset Date Comments Refill Request 02/16/2023 Reason Comments Medication Problem Reason Comments Home Care Reason Comments Patient Question Requesting home heal th care help Referral Request Home health Reason Comments FYI-No Action Needed Reason Comments PT home care Reason Comments Initial Consult [facility] [id number] Reason Comments Question Results, Lab Reason Onset Date Comments ACM EMY RN 01/26/2024 Medication ad herence and suspect condition review per request of payer Reason Comments Received Outside Medical Records [employer] [facility] Order for glucose test strips 02/02/2024 Reason Onset Date Comments ACM EMY RN 02/16/2024 Medication ad herence review per request of payer Reason Comments rx refill; not on current med list Reason Onset Date Comments Population Health Navigation Outreach 04/11/2024 [facility] Reason Onset Date Comments Refill Request 05/18/2024 Reason Comments Forms Reason Onset Date Comments Refill Request 09/13/2024 Reason Onset Date Comments Pain 09/25/2024 Reason Comments Results feet Reason Comments Received Outside Medical Records [facility] ER Discharge and transfer of care to SNF 10/18/2024 Reason Comments Patient Update Reason Comments Received Outside Medical Records [facility] ED Reason Comments Received Outside Medical Records Admissi on to [facility] 10/30/24 Reason Comments Orders [facility] Reason Comments Medication question Reason Comments Patient Update C [facility] Reason Comments Home Care Physical therapySoci al Work Reason Comments [facility] Reason Comments Multiple Concerns Reason Comments Orders [facility] Reason Comments Received Outside Medical Records [facility] dis charge summary Care Teams (unrecognized sec tion and content) Designer Writer Relationship Specialty Start Date End Date Juni Aguilar [address] [place], [place] [address] PCP - General Internal Medicine 10/27/21 Designer Writer Relationship Specialty Start Date End Date Juni Aguilar [address] [place], [place] [id number] PCP - General Internal Medicine 10/27/21 Designer Writer Relationship Specialty Start Date End Date Fredis Villeda MD [address] [phone] PCP - General Family Practice 10/29/21 Fredis Villeda MD [address] [phone] Home Care Physician Family Practice 10/29/21 Misael Crabtree PA-C [address] [place] [address] Referring Internal Medicine 10/29/21 Satish Dillard, RN [address] [place] [address] Php Programmer Post Acute Care 10/29/21 Designer Writer Relationship Specialty Start Date End Date Fredis Villeda MD [address] [phone] PCP - General Family Practice 10/29/21 Fredis Villeda MD [address] [place] [address] Home Care Physician Family Practice 10/29/21 Misael Crabtree PA-C [address] [place] [address] Referring Internal Medicine 10/29/21 Satish Dillard, MARCIAL [address] [place] [address] Php Programmer Post Acute Care 10/29/21 Designer Writer Relationship Specialty Start Date End Date Fredis Villeda MD [address] [facility] [address] [place] [address] PCP - General Family Practice 10/29/21 Fredis Villeda MD [address] [facility] [address] [place] [phone] [address] Home Care Physician Family Practice 10/29/21 Misael Crabtree PA-C [address] [place] [address] Referring Internal Medicine 10/29/21 Satish Dillard, RN [address] [place] [address] Php Programmer Post Acute Care 10/29/21 Designer Writer Relationship Specialty Start Date End Date Fredis Villeda MD [address] [facility] [address] [place] [address] PCP - General Family Practice 10/29/21 Fredis Villeda MD [address] [facility] [address] [place] [address] Home Care Physician Family Practice 10/29/21 Misael Crabtree PA-C [address] [place] [address] Referring Internal Medicine 10/29/21 Satish Dillard RN [address] [place] [address] Php Programmer Post Acute Care 10/29/21 Designer Writer Relationship Specialty Start Date End Date Fredis Villeda MD [address] [place] [address] PCP - General Family Practice 10/29/21 Fredis Villeda MD [address] [place] [phone] Home Care Physician Family Practice 10/29/21 Misael Crabtree PA-C [address] [place] [address] Referring Internal Medicine 10/29/21 Satish Dillard RN [address] [place] [address] Php Programmer Post Acute Care 10/29/21 Designer Writer Relationship Specialty Start Date End Date Misael Crabtree PA-C [address] [place] [address] Referring Internal Medicine 10/29/21 Satish Dillard RN [address] [place] [address] Php Programmer Post Acute Care 10/29/21 Designer Writer Relationship Specialty Start Date End Date Misael Crabtree PA-C [address] [place] [address] Referring Internal Medicine 10/29/21 Satish Dillard RN [address] [place] [address] Php Programmer Post Acute Care 10/29/21 Designer Writer Relationship Specialty Start Date End Date Misael Crabtree PA-C [address] [place] [address] Referring Internal Medicine 10/29/21 Satish Dillard, RN [address] [place] [address] Php Programmer Post Acute Care 10/29/21 Designer Writer Relationship Specialty Start Date End Date Misael Crabtree PA-C [address] [place] [address] Referring Internal Medicine 10/29/21 Satish Dillard RN [address] [place] [address] Php Programmer Post Acute Care 10/29/21 Designer Writer Relationship Specialty Start Date End Date Misael Crabtree PA-C [address] [place] [address] Referring Internal Medicine 10/29/21 Satish Dillard RN [address] [place] [address] Php Programmer Post Acute Care 10/29/21 Designer Writer Relationship Specialty Start Date End Date Misael Crabtree PA-C [address] [place] [address] Referring Internal Medicine 10/29/21 Satish Dillard, RN [address] [place] [address] Php Programmer Post Acute Care 10/29/21 Designer Writer Relationship Specialty Start Date End Date Misael Crabtree PA-C [address] [place] [address] Referring Internal Medicine 10/29/21 Satish Dillard RN [address] [place] [address] Php Programmer Post Acute Care 10/29/21 Designer Writer Relationship Specialty Start Date End Date Misael Crabtree PA-C [address] [place] [address] Referring Internal Medicine 10/29/21 Satish Dillard, RN [address] [place] [address] Php Programmer Post Acute Care 10/29/21 Fredis Villeda MD [address] [place] [address] Home Care Physician Family Practice 11/19/21 Designer Writer Relationship Specialty Start Date End Date Misael Crabtree PA-C [address] [place] [address] Referring Internal Medicine 10/29/21 Satish Dillard RN [address] [place] [address] Php Programmer Post Acute Care 10/29/21 Fredis Villeda MD [address] [place] [phone] Home Care Physician Family Practice 11/19/21 Designer Writer Relationship Specialty Start Date End Date Misael Crabtree PA-C [address] [place] [address] Referring Internal Medicine 10/29/21 Satish Dillard RN [address] [place] [address] Php Programmer Post Acute Care 10/29/21 Fredis Villeda MD [address] [place] [phone] Home Care Physician Family Practice 11/19/21 Designer Writer Relationship Specialty Start Date End Date Misael Crabtree PA-C [address] [place] [address] Referring Internal Medicine 10/29/21 Satish Dillard RN [address] [place] [address] Php Programmer Post Acute Care 10/29/21 Fredis Villeda MD [address] [place] [phone] Home Care Physician Family Practice 11/19/21 Designer Writer Relationship Specialty Start Date End Date Misael Crabtree PA-C [address] [place] [address] Referring Internal Medicine 10/29/21 Satish Dillard, RN [address] [place] [address] Php Programmer Post Acute Care 10/29/21 Fredis Villeda MD [address] [facility] [address] [place] [phone] Home Care Physician Family Practice 11/19/21 Designer Writer Relationship Specialty Start Date End Date Misael Crabtree PA-C [address] [place] [address] Referring Internal Medicine 10/29/21 Satish Dillard, RN [address] [place] [address] Php Programmer Post Acute Care 10/29/21 Fredis Villeda MD [address] [facility] [address] [place] [phone] Home Care Physician Family Practice 11/19/21 Designer Writer Relationship Specialty Start Date End Date Misael Crabtree PA-C [address] [place] [address] Referring Internal Medicine 10/29/21 Satish Dillard, RN [address] [place] [address] Php Programmer Post Acute Care 10/29/21 Fredis Villeda MD [address] [place] [phone] Home Care Physician Family Practice 11/19/21 Designer Writer Relationship Specialty Start Date End Date Misael Crabtree PA-C [address] [place] [address] Referring Internal Medicine 10/29/21 Satish Dillard RN [address] [place] [address] Php Programmer Post Acute Care 10/29/21 Fredis Villeda MD [address] [place] [phone] Home Care Physician Family Practice 11/19/21 Designer Writer Relationship Specialty Start Date End Date Keyla Schultz MD [address] [facility] [place] [address] PCP - General Family Practice 12/02/21 Misael Crabtree PA-C [address] [place] [address] Referring Internal Medicine 10/29/21 Satish Dillard RN [address] [place] [address] Php Programmer Post Acute Care 10/29/21 Fredis Villeda MD [address] [place] [phone] Home Care Physician Family Practice 11/19/21 Designer Writer Relationship Specialty Start Date End Date Keyla Schultz MD [address] [place] [address] PCP - General Family Practice 12/02/21 Misael Crabtree PA-C [address] [place] [address] Referring Internal Medicine 10/29/21 Satish Dillard RN [address] [place] [address] Php Programmer Post Acute Care 10/29/21 Fredis Villeda MD [address] [place] [phone] Home Care Physician Family Practice 11/19/21 Designer Writer Relationship Specialty Start Date End Date Keyla Schultz MD [address] [place], [place] [id number] PCP - General Family Practice 12/02/21 Misael Crabtree PABrentC [address] [place] [address] Referring Internal Medicine 10/29/21 Satish Dillard, RN [address] [place] [address] Php Programmer Post Acute Care 10/29/21 Fredis Villeda MD [address] [facility] [address] [place] [phone] Home Care Physician Family Practice 11/19/21 Designer Writer Relationship Specialty Start Date End Date Keyla Schultz MD [address] [place], [place] [id number] PCP - General Family Practice 12/02/21 Misael Crabtree PABrentC [address] [place] [address] Referring Internal Medicine 10/29/21 Satish Dillard, RN [address] [place] [address] Php Programmer Post Acute Care 10/29/21 Fredis Villeda MD [address] [facility] [address] [place] [phone] Home Care Physician Family Practice 11/19/21 Designer Writer Relationship Specialty Start Date End Date Keyla Schultz MD [address] [facility] [address] [place], [place] [id number] PCP - General Family Practice 12/02/21 Misael Crabtree PA-C [address] [place] [address] Referring Internal Medicine 10/29/21 Satish Dillard RN [address] [place] [address] Php Programmer Post Acute Care 10/29/21 Fredis Villeda MD [address] [place] [phone] Home Care Physician Family Practice 11/19/21 Designer Writer Relationship Specialty Start Date End Date Keyla Schultz MD [address] [facility] [address] [place] [address] PCP - General Family Practice 12/02/21 Misael Crabtree PA-C [address] [place] [address] Referring Internal Medicine 10/29/21 Satish Dillard RN [address] [place] [address] Php Programmer Post Acute Care 10/29/21 Fredis Villeda MD [address] [place] [phone] Home Care Physician Family Practice 11/19/21 Designer Writer Relationship Specialty Start Date End Date Keyla Schultz MD [address] [facility] [address] [place] [address] PCP - General Family Practice 12/02/21 Misael Crabtree PA-C [address] [place] [address] Referring Internal Medicine 10/29/21 Satish Dillard RN [address] [place] [address] Php Programmer Post Acute Care 10/29/21 Fredis Villeda MD [address] [place] [address] Home Care Physician Family Practice 11/19/21 Designer Writer Relationship Specialty Start Date End Date Keyla Schultz MD [address] [facility] [address] [place] [address] PCP - General Family Practice 12/02/21 Misael Crabtree PA-C [address] [place] [address] Referring Internal Medicine 10/29/21 Satish Dillard, RN [address] [place] [address] Php Programmer Post Acute Care 10/29/21 Fredis Villeda MD [address] [place] [phone] Home Care Physician Family Practice 11/19/21 Designer Writer Relationship Specialty Start Date End Date Keyla Schultz MD [address] [place], [place] [id number] PCP - General Family Practice 12/02/21 Misael Crabtree PA-C [address] [place] [address] Referring Internal Medicine 10/29/21 Fredis Villeda MD [address] [place] [address] Home Care Physician Family Practice 11/19/21 Designer Writer Relationship Specialty Start Date End Date Keyla Schultz MD [address] [place] [address] PCP - General Family Practice 12/02/21 Misael Crabtree PA-C [address] [place] [address] Referring Internal Medicine 10/29/21 Satish Dillard, RN [address] [place] [address] Php Programmer Post Acute Care 10/29/21 12/24/21 Fredis Villeda MD [address] [phone] Home Care Physician Family Practice 11/19/21 Designer Writer Relationship Specialty Start Date End Date Keyla Schultz MD [address] [place] [id number] PCP - General Family Practice 12/02/21 Misael Crabtree PA-C [address] [place] [address] Referring Internal Medicine 10/29/21 Fredis Villeda MD [address] [phone] Home Care Physician Family Practice 11/19/21 Designer Writer Relationship Specialty Start Date End Date Keyla Schultz MD [address] [place] [id number] PCP - General Family Practice 12/02/21 Misael Crabtree PA-C [address] [place] [address] Referring Internal Medicine 10/29/21 Fredis Villeda MD [address] [facility] [address] [place] [phone] Home Care Physician Family Practice 11/19/21 Designer Writer Relationship Specialty Start Date End Date Keyla Schultz MD [address] [place] [id number] PCP - General Family Medicine 12/02/21 Misael Crabtree PA-C [address] [place] [address] Referring Internal Medicine 10/29/21 Fredis Villeda MD [address] [facility] [address] [place] [phone] Home Care Provider Family Medicine 11/19/21 Designer Writer Relationship Specialty Start Date End Date Keyla Schultz MD [address] [place] [id number] PCP - General Family Medicine 12/02/21 Misael Crabtree PA-C [address] [place] [address] Referring Internal Medicine 10/29/21 Fredis Villeda MD [address] [facility] [address] [place] [phone] Home Care Provider Family Medicine 11/19/21 Designer Writer Relationship Specialty Start Date End Date Keyla Schultz MD [address] [place] [id number] PCP - General Family Medicine 12/02/21 Misael Crabtree PA-C [address] [place] [address] Referring Internal Medicine 10/29/21 Fredis Villeda MD [address] [facility] [address] [place] [phone] Home Care Provider Family Medicine 11/19/21 Designer Writer Relationship Specialty Start Date End Date Keyla Schultz MD [address] [place] [id number] PCP - General Family Medicine 12/02/21 Misael Crabtree PA-C [address] [place] [address] Referring Internal Medicine 10/29/21 Fredis Villeda MD [address] [place] [phone] Home Care Provider Family Medicine 11/19/21 Designer Writer Relationship Specialty Start Date End Date Keyla Schultz MD [address] [place], [place] [address] PCP - General Family Medicine 12/02/21 Misael Crabtree PA-C [address] [place] [address] Referring Internal Medicine 10/29/21 Fredis Villeda MD [address] [place] [phone] Home Care Provider Family Medicine 11/19/21 Designer Writer Relationship Specialty Start Date End Date Keyla cShultz MD [address] [place], [place] [address] PCP - General Family Medicine 12/02/21 Misael Crabtree PA-C [address] [place] [address] Referring Internal Medicine 10/29/21 Fredis Villeda MD [address] [place] [phone] Home Care Provider Family Medicine 11/19/21 Designer Writer Relationship Specialty Start Date End Date Keyla Schultz MD [address] [place] [id number] PCP - General Family Medicine 12/02/21 Misael Crabtree PA-C [address] [place], [place] [address] Referring Internal Medicine 10/29/21 Fredis Villeda MD [address] [place] [address] [place] [phone] Home Care Provider Family Medicine 11/19/21 Designer Writer Relationship Specialty Start Date End Date Keyla Schultz MD [address] [facility] [place] [id number] PCP - General Family Medicine 12/02/21 Misael Crabtree PA-C [address] [facility] [place] [place] [address] Referring Internal Medicine 10/29/21 Fredis Villeda MD [facility] [address] [place] [phone] Home Care Provider Family Medicine 11/19/21 Designer Writer Relationship Specialty Start Date End Date Keyla Schultz MD [address] [address] [place] [address] PCP - General Family Medicine 12/02/21 Misael Crabtree PA-C [address] [facility] [place] [place] [address] Referring Internal Medicine 10/29/21 Fredis Villeda MD [address] [place] [address] [place] [phone] Home Care Provider Family Medicine 11/19/21 Designer Writer Relationship Specialty Start Date End Date Keyla Schultz MD [address] [place], [place] [address] PCP - General Family Medicine 12/02/21 Misael Crabtree PA-C [address] [place], [place] 6255[address] Referring Internal Medicine 10/29/21 Fredis Villeda MD [address] [place] [phone] Home Care Provider Family Medicine 11/19/21 Designer Writer Relationship Specialty Start Date End Date Keyla Schultz MD [address] [facility] [place] [address] PCP - General Family Medicine 12/02/21 Misael Crabtree PA-C [address] [place] [address] Referring Internal Medicine 10/29/21 Fredis Villeda MD [address] [place] [phone] Home Care Provider Family Medicine 11/19/21 Designer Writer Relationship Specialty Start Date End Date Keyla Schultz MD [address] [facility] [address] [place], [place] [address] PCP - General Family Medicine 12/02/21 Misael Crabtree PA-C [address] [place] [address] Referring Internal Medicine 10/29/21 Fredis Villeda MD [address] [place] [phone] Home Care Provider Family Medicine 11/19/21 Designer Writer Relationship Specialty Start Date End Date Keyla Schultz MD [address] [facility] [address] [place], [place] [address] PCP - General Family Medicine 12/02/21 Misael Crabtree PA-C [address] [place], [place] [address] Referring Internal Medicine 10/29/21 Fredis Villeda MD [facility] [address] [facility] [address] [place] [phone] Home Care Provider Family Medicine 11/19/21 Designer Writer Relationship Specialty Start Date End Date Keyla Schultz MD [address] [place], [place] [id number] PCP - General Family Medicine 12/02/21 Misael Crabtree PA-C [address] [place] [address] Referring Internal Medicine 10/29/21 Fredis Villeda MD [facility] [address] [place] [phone] Home Care Provider Family Medicine 11/19/21 Designer Writer Relationship Specialty Start Date End Date Keyla Schultz MD [address] [place], [place] [id number] PCP - General Family Medicine 12/02/21 Misael Crabtree PA-C [address] [place] [address] Referring Internal Medicine 10/29/21 Fredis Villeda MD [facility] [address] [place] [phone] Home Care Provider Family Medicine 11/19/21 Designer Writer Relationship Specialty Start Date End Date Keyla Schultz MD [address] [place] [address] PCP - General Family Medicine 12/02/21 Misael Crabtree PA-C [address] [place] [id number] Referring Internal Medicine 10/29/21 Fredis Villeda MD [facility] [address] [place] [phone] Home Care Provider Family Medicine 11/19/21 Designer Writer Relationship Specialty Start Date End Date Keyla Schultz MD [address] [place] [address] PCP - General Family Medicine 12/02/21 Misael Crabtree PA-C [address] [place] [address] Referring Internal Medicine 10/29/21 Fredis Villeda MD [facility] [address] [place] [phone] Home Care Provider Family Medicine 11/19/21 Designer Writer Relationship Specialty Start Date End Date Keyla Schultz MD [address] [address] PCP - General Family Medicine 12/02/21 Misael Crabtree PA-C [address] [place], [place] [id number] Referring Internal Medicine 10/29/21 Fredis Villeda MD [address] [facility] [address] [place] [phone] Home Care Provider Family Medicine 11/19/21 Kadi Santos, QUANTITATIVE EQUITY HEAD Manager Reporting 09/23/23 Designer Writer Relationship Specialty Start Date End Date Keyla Schultz MD [address] [address] PCP - General Family Medicine 12/02/21 Misael Crabtree PA-C [address] [facility] [place] [address] Referring Internal Medicine 10/29/21 Fredis Villeda MD [address] [facility] [address] [place] [phone] Home Care Provider Family Medicine 11/19/21 aKdi Santos, QUANTITATIVE EQUITY HEAD Manager Reporting 09/23/23 Designer Writer Relationship Specialty Start Date End Date Keyla Schultz MD [address] [place] [address] PCP - General Family Medicine 12/02/21 Misael Crabtree PA-C [address] [place] [address] Referring Internal Medicine 10/29/21 Fredis Villeda MD [address] [facility] [address] [place] [phone] Home Care Provider Family Medicine 11/19/21 Kadi Santos LSW Manager Reporting 09/23/23 Designer Writer Relationship Specialty Start Date End Date Keyla Schultz MD [address] [place], [place] [address] PCP - General Family Medicine 12/02/21 Misael Crabtree PA-C [address] [place], [place] [phone] Referring Internal Medicine 10/29/21 Fredis Villeda MD [facility] [address] [place] [phone] Home Care Provider Family Medicine 11/19/21 Designer Writer Relationship Specialty Start Date End Date Keyla Schultz MD [address] [place], [place] [address] PCP - General Family Medicine 12/02/21 Misael Crabtree PA-C [address] [facility] [place] [phone] Referring Internal Medicine 10/29/21 Fredis Villeda MD [facility] [address] [place] [phone] Home Care Provider Family Medicine 11/19/21 Designer Writer Relationship Specialty Start Date End Date Keyla Schultz MD [address] [place] [address] PCP - General Family Medicine 12/02/21 Misael Crabtree PA-C [address] [place], [place] [address] Referring Internal Medicine 10/29/21 Fredis Villeda MD [address] [place] [address] Home Care Provider Family Medicine 11/19/21 Designer Writer Relationship Specialty Start Date End Date Keyla Schultz MD [address] [place] [address] PCP - General Family Medicine 12/02/21 Misael Crabtree PA-C [address] [place] [address] Referring Internal Medicine 10/29/21 Fredis Villeda MD [address] [place] [address] Home Care Provider Family Medicine 11/19/21 Designer Writer Relationship Specialty Start Date End Date Keyla Schultz MD [address] [place] [address] PCP - General Family Medicine 12/02/21 Misael Crabtree PA-C [address] [place] [address] Referring Internal Medicine 10/29/21 Fredis Villeda MD [address] [place] [address] Home Care Provider Family Medicine 11/19/21 Designer Writer Relationship Specialty Start Date End Date Keyla Schultz MD [address] [address] PCP - General Family Medicine 12/02/21 Misael Crabtree PA-C [address] [facility] [place] [address] Referring Internal Medicine 10/29/21 Fredis Villeda MD [address] [facility] [place] [address] Home Care Provider Family Medicine 11/19/21 Designer Writer Relationship Specialty Start Date End Date Keyla Schultz MD [address] [place] [address] PCP - General Family Medicine 12/02/21 Misael Crabtree PA-C [address] [facility] [place] [address] Referring Internal Medicine 10/29/21 Fredis Villeda MD [address] [facility] [place] [address] Home Care Provider Family Medicine 11/19/21 Designer Writer Relationship Specialty Start Date End Date Keyla Schultz MD [address] [address] PCP - General Family Medicine 12/02/21 iMsael Crabtree PA-C [address] [facility] [place] [address] Referring Internal Medicine 10/29/21 Fredis Villeda MD [address] [place] [address] Home Care Provider Family Medicine 11/19/21 Designer Writer Relationship Specialty Start Date End Date Keyla Schultz MD [address] [place] [address] PCP - General Family Medicine 12/02/21 Misael Crabtree PA-C [address] [place] [address] Referring Internal Medicine 10/29/21 Fredis Villeda MD [address] [place] [address] Home Care Provider Family Medicine 11/19/21 Designer Writer Relationship Specialty Start Date End Date Keyla Schultz MD [address] [place], [place] [address] PCP - General Family Medicine 12/02/21 Misael Crabtree PA-C [address] [place] [address] Referring Internal Medicine 10/29/21 Fredis Villeda MD [address] [place] [address] Home Care Provider Family Medicine 11/19/21 Cesar Murray APRN.WINDOWS TECHNICAL SPECIALIST [address] [place], [place] [id number] Windows Application Developer Internal Medicine 06/24/24 Designer Writer Relationship Specialty Start Date End Date Keyla Schultz MD [address] [place], [place] [address] PCP - General Family Medicine 12/02/21 Misael Crabtree PA-C [address] [place], [place] [address] Referring Internal Medicine 10/29/21 Fredis Villeda MD [address] [place], [place] [phone] Home Care Provider Family Medicine 11/19/21 Cesar Murray APRN.WINDOWS TECHNICAL SPECIALIST [address] [place], [place] [address] Windows Application Developer Internal Medicine 06/24/24 Designer Writer Relationship Specialty Start Date End Date Keyla Schultz MD [address] [place], [place] [address] PCP - General Family Medicine 12/02/21 Misael Crabtree PA-C [address] [place] [address] Referring Internal Medicine 10/29/21 Fredis Villeda MD [address] [place], [place] [phone] Home Care Provider Family Medicine 11/19/21 Cesar Murray APRN.WINDOWS TECHNICAL SPECIALIST [address] [address] Windows Application Developer Internal Medicine 06/24/24 Designer Writer Relationship Specialty Start Date End Date Keyla Schultz MD [address] [address] PCP - General Family Medicine 12/02/21 Misael Crabtree PA-C [address] [place] [address] Referring Internal Medicine 10/29/21 Fredis Villeda MD [address] [place] [address] Home Care Provider Family Medicine 11/19/21 Cesar Murray APRN.WINDOWS TECHNICAL SPECIALIST [address] [address] Windows Application Developer Internal Medicine 06/24/24 Designer Writer Relationship Specialty Start Date End Date Keyla Schultz MD [address] [address] PCP - General Family Medicine 12/02/21 Misael Crabtree PA-C [address] [facility] [place] [address] Referring Internal Medicine 10/29/21 Fredis Villeda MD [address] [place] [address] Home Care Provider Family Medicine 11/19/21 Cesar Murray APRN.WINDOWS TECHNICAL SPECIALIST [address] [address] Windows Application Developer Internal Medicine 06/24/24 Designer Writer Relationship Specialty Start Date End Date Keyla Schultz MD [address] [place], [place] [address] PCP - General Family Medicine 12/02/21 Misael Crabtree PA-C [address] [facility] [place] [address] Referring Internal Medicine 10/29/21 Fredis Villeda MD [address] [place], [place] [phone] Home Care Provider Family Medicine 11/19/21 Cesar Murray APRN.WINDOWS TECHNICAL SPECIALIST [address] [place], [place] [address]31 Windows Application Developer Internal Medicine 06/24/24 Designer Writer Relationship Specialty Start Date End Date Keyla Schultz MD [address] [place], [place] [address] PCP - General Family Medicine 12/02/21 Misael Crabtree PA-C [address] [place], [place] [phone] Referring Internal Medicine 10/29/21 Fredis Villeda MD [address] [place], [place] 6520995 Home Care Provider Family Medicine 11/19/21 Cesar Murray APRN.WINDOWS TECHNICAL SPECIALIST [address] [place], [place] [address] Windows Application Developer Internal Medicine 06/24/24 Designer Writer Relationship Specialty Start Date End Date Keyla Schultz MD [address] [place], [place] [address] PCP - General Family Medicine 12/02/21 Misael Crabtree PA-C [address] [place], [place] 9215895 Referring Internal Medicine 10/29/21 Fredis Villeda MD [address] [place] [address] Home Care Provider Family Medicine 11/19/21 Cesar Murray APRN.WINDOWS TECHNICAL SPECIALIST [address] [place], [place] [address] Windows Application Developer Internal Medicine 06/24/24 Team Status: Active Member Role Status Dates Dr. Saulo Schultz MD Primary Care Provider Active Team Status: Active Member Role Status Dates Sualo GODINEZ MD Primary Care Provider Active Start: October 15, 2024 Dr. Aamir Auguste DO Emergency Provider Active Start: October 15, 2024 Dr. Gemma Nava MD Attending Provider Active Start: October 15, 2024 Team Status: Active Member Role Status Dates Dr. Aamir Auguste DO Emergency Provider Active Start: October 15, 2024 Dr. Saulo Schultz MD Primary Care Provider Active Start: October 15, 2024 Dr. Gemma Nava MD Admit Provider Active Star t: October 15, 2024 Dr. Gemma Nava MD Attending Provider Active Start: October 15, 2024 Designer Writer Relationship Specialty Start Date End Date Keyla Schultz MD [address] [place], [place] [address] PCP - General Family Medicine 12/02/21 Misael Crabtree PA-C [address] [facility] [place] [address] Referring Internal Medicine 10/29/21 Fredis Villeda MD [address] [place], [place] 358[address] Home Care Provider Family Medicine 11/19/21 Cesar Murray APRN.WINDOWS TECHNICAL SPECIALIST [address] [place], [place] [phone] [facility] Internal Medicine 06/24/24 Team Status: Inactive Member Role Status Dates Dr. Aamir Auguste DO Emergency Provider Active Start: October 15, 2024 End: October 18, 2024 Dr. Saulo Schultz MD Primary Care Provider Active Start: October 15, 2024 End: October 18, 2024 Dr. Gemma Nava MD Admit Provider Active Star t: October 15, 2024 End: October 18, 2024 Dr. Gemma Nava MD Other Provider Active Star t: October 15, 2024 End: October 18, 2024 Dr. Sriram Stroud MD Attending Provider Active Start: October 15, 2024 End: October 18, 2024 Team Status: Active Member Role Status Dates Dr. Aamir Auguste DO Emergency Provider Active Start: October 16, 2024 Dr. Saulo Schultz MD Primary Care Provider Active Start: October 16, 2024 Dr. Gemma Nava MD Admit Provider Active Star t: October 16, 2024 Dr. Gemma Nava MD Other Provider Active Star t: October 16, 2024 Dr. Sriram Stroud MD Attending Provider Active Start: October 16, 2024 Dr. Sriram Stroud MD Other Provider Active Sta rt: October 16, 2024 Team Status: Active Member Role Status Dates Dr. Aamir Auguste DO Emergency Provider Active Start: October 17, 2024 Dr. Saulo Schultz MD Primary Care Provider Active Start: October 17, 2024 Dr. Gemma Nava MD Admit Provider Active Star t: October 17, 2024 Dr. Gemma Nava MD Other Provider Active Star t: October 17, 2024 Dr. Sriram Stroud MD Attending Provider Active Start: October 17, 2024 Dr. Sriram Stroud MD Other Provider Active Sta rt: October 17, 2024 Team Status: Active Member Role Status Dates Dr. Aamir Auguste DO Emergency Provider Active Start: October 18, 2024 Dr. Saulo Schultz MD Primary Care Provider Active Start: October 18, 2024 Dr. Gemma Nava MD Admit Provider Active Star t: October 18, 2024 Dr. Gemma Nava MD Other Provider Active Star t: October 18, 2024 Dr. Sriram Stroud MD Attending Provider Active Start: October 18, 2024 Dr. Sriram Stroud MD Other Provider Active Sta rt: October 18, 2024 Designer Writer Relationship Specialty Start Date End Date Keyla Schultz MD [address] [place], [place] [address] PCP - General Family Medicine 12/02/21 Misael Crabtree PA-C [address] [place], [place] [id number] Referring Internal Medicine 10/29/21 Fredis Villeda MD [address] [place] [address] Home Care Provider Family Medicine 11/19/21 Cesar Murray APRN.CNP [address] [place], [place] [address] Windows Application Developer Internal Medicine 06/24/24 Team Status: Active Member Role Status Dates Dr. Saulo Schultz MD Primary Care Provider Active Start: October 30, 2024 Dr. Dl Salazar MD Emergency Provider Active Start: October 30, 2024 Dr. Mindi Nelson MD Admit Provider Active St art: October 30, 2024 Dr. Mindi Nelson MD Attending Provider Active Start: October 30, 2024 Team Status: Inactive Member Role Status Dates Dr. Saulo Schultz MD Primary Care Provider Active Start: October 30, 2024 End: November 09, 2024 Dr. Dl Salazar MD Emergency Provider Active Start: October 30, 2024 End: November 09, 2024 Dr. Mindi Nelson MD Admit Provider Active St art: October 30, 2024 End: November 09, 2024 Dr. Mindi Nelson MD Other Provider Active St art: October 30, 2024 End: November 09, 2024 Dr. Lu Coreas DO Attending Provider Active S tart: October 30, 2024 End: November 09, 2024 Team Status: Active Member Role Status Dates Dr. Saulo Schultz MD Primary Care Provider Active Start: October 30, 2024 Dr. Dl Salazar MD Emergency Provider Active Start: October 30, 2024 Dr. Mindi Nelson MD Admit Provider Active St art: October 30, 2024 Dr. Mindi Nelson MD Attending Provider Active Start: October 30, 2024 Dr. Mindi Nelson MD Other Provider Active St art: October 30, 2024 Team Status: Active Member Role Status Dates Dr. Saulo Schultz MD Primary Care Provider Active Start: October 31, 2024 Dr. Dl Salazar MD Emergency Provider Active Start: October 31, 2024 Dr. Mindi Nelson MD Admit Provider Active St art: October 31, 2024 Dr. Mindi Nelson MD Attending Provider Active Start: October 31, 2024 Dr. Mindi Nelson MD Other Provider Active St art: October 31, 2024 Team Status: Active Member Role Status Dates Dr. Saulo Schultz MD Primary Care Provider Active Start: November 01, 2024 Dr. Dl Salazar MD Emergency Provider Active Start: November 01, 2024 Dr. Mindi Nelson MD Admit Provider Active St art: November 01, 2024 Dr. Mindi Nelson MD Attending Provider Active Start: November 01, 2024 Dr. Mindi Nelson MD Other Provider Active St art: November 01, 2024 Team Status: Active Member Role Status Dates Dr. Saulo Schultz MD Primary Care Provider Active Start: November 02, 2024 Dr. Dl Salazar MD Emergency Provider Active Start: November 02, 2024 Dr. Mindi Nelson MD Admit Provider Active St art: November 02, 2024 Dr. Mindi Nelson MD Attending Provider Active Start: November 02, 2024 Dr. Mindi Nelson MD Other Provider Active St art: November 02, 2024 Team Status: Active Member Role Status Dates Dr. Saulo Schultz MD Primary Care Provider Active Start: November 02, 2024 End: November 02, 2024 Dr. Binu Alexis MD Attending Provider Active S tart: November 02, 2024 End: November 02, 2024 Dr. Binu Alexis MD Referring Provider Active S tart: November 02, 2024 End: November 02, 2024 Team Status: Active Member Role Status Dates Dr. Saulo Schultz MD Primary Care Provider Active Start: November 03, 2024 Dr. Dl Salazar MD Emergency Provider Active Start: November 03, 2024 Dr. Mindi Nelson MD Admit Provider Active St art: November 03, 2024 Dr. Mindi Nelson MD Attending Provider Active Start: November 03, 2024 Dr. Mindi Nelson MD Other Provider Active St art: November 03, 2024 Team Status: Active Member Role Status Dates Dr. Saulo Schultz MD Primary Care Provider Active Start: November 04, 2024 Dr. Dl Salazar MD Emergency Provider Active Start: November 04, 2024 Dr. Mindi Nelson MD Admit Provider Active St art: November 04, 2024 Dr. Mindi Nelson MD Attending Provider Active Start: November 04, 2024 Dr. Mindi Nelson MD Other Provider Active St art: November 04, 2024 Team Status: Active Member Role Status Dates Dr. Saulo Schultz MD Primary Care Provider Active Start: November 05, 2024 Dr. Dl Salazar MD Emergency Provider Active Start: November 05, 2024 Dr. Mindi Nelson MD Admit Provider Active St art: November 05, 2024 Dr. Mindi Nelson MD Other Provider Active St art: November 05, 2024 Dr. Lu Coreas DO Attending Provider Active S tart: November 05, 2024 Dr. Lu Coreas DO Other Provider Active Start : November 05, 2024 Team Status: Active Member Role Status Dates Dr. Saulo Schultz MD Primary Care Provider Active Start: November 06, 2024 Dr. Dl Salazar MD Emergency Provider Active Start: November 06, 2024 Dr. Mindi Nelson MD Admit Provider Active St art: November 06, 2024 Dr. Mindi Nelson MD Other Provider Active St art: November 06, 2024 Dr. Lu Coreas DO Attending Provider Active S tart: November 06, 2024 Dr. Lu Coreas DO Other Provider Active Start : November 06, 2024 Team Status: Active Member Role Status Dates Dr. Saulo Schutlz MD Primary Care Provider Active Start: November 07, 2024 Dr. Dl Salazar MD Emergency Provider Active Start: November 07, 2024 Dr. Mindi Nelson MD Admit Provider Active St art: November 07, 2024 Dr. Mindi Nelson MD Other Provider Active St art: November 07, 2024 Dr. Lu Coreas DO Attending Provider Active S tart: November 07, 2024 Dr. Lu Coreas DO Other Provider Active Start : November 07, 2024 Team Status: Active Member Role Status Dates Dr. Saulo Schultz MD Primary Care Provider Active Start: November 08, 2024 Dr. Dl Salazar MD Emergency Provider Active Start: November 08, 2024 Dr. Mindi Nelson MD Admit Provider Active St art: November 08, 2024 Dr. Mindi Nelson MD Other Provider Active St art: November 08, 2024 Dr. Lu Coreas DO Attending Provider Active S tart: November 08, 2024 Dr. Lu Coreas DO Other Provider Active Start : November 08, 2024 Team Status: Active Member Role Status Dates Dr. Saulo Schultz MD Primary Care Provider Active Start: November 09, 2024 Dr. Dl Salazar MD Emergency Provider Active Start: November 09, 2024 Dr. Mindi Nelson MD Admit Provider Active St art: November 09, 2024 Dr. Mindi Nelson MD Other Provider Active St art: November 09, 2024 Dr. Lu Coreas DO Attending Provider Active S tart: November 09, 2024 Dr. Lu Coreas DO Other Provider Active Start : November 09, 2024 Team Status: Active Member Role Status Dates Dr. Saulo Schultz MD Primary Care Provider Active Start: November 26, 2024 Dr. Dl Salazar MD Referring Provider Active Start: November 26, 2024 Dr. Dl Salazar MD Emergency Provider Active Start: November 26, 2024 Dr. Isaiah Gómez DO Admit Provider Active Start: November 26, 2024 Dr. Isaiah Gómez DO Attending Provider Active Start: November 26, 2024 Team Status: Inactive Member Role Status Dates Dr. Saulo Schultz MD Primary Care Provider Active Start: November 26, 2024 End: November 28, 2024 Dr. Dl Salazar MD Referring Provider Active Start: November 26, 2024 End: November 28, 2024 Dr. Dl Salazar MD Emergency Provider Active Start: November 26, 2024 End: November 28, 2024 Dr. Isaiah Gómez DO Admit Provider Active Start: November 26, 2024 End: November 28, 2024 Dr. Isaiah Gómez DO Other Provider Active Start: November 26, 2024 End: November 28, 2024 Dr. Gray Pierce DO Attending Provider Active Start: November 26, 2024 End: November 28, 2024 Team Status: Active Member Role Status Dates Dr. Saulo Schultz MD Primary Care Provider Active Start: November 27, 2024 Dr. Dl Salazar MD Referring Provider Active Start: November 27, 2024 Dr. Dl Salazar MD Emergency Provider Active Start: November 27, 2024 Dr. Isaiah Gómez DO Admit Provider Active Start: November 27, 2024 Dr. Isaiah Gómez DO Other Provider Active Start: November 27, 2024 Dr. Gray Pierce DO Attending Provider Active Start: November 27, 2024 Dr. Gray Pierce DO Other Provider Active S tart: November 27, 2024 Team Status: Active Member Role Status Dates Dr. Saulo Schultz MD Primary Care Provider Active Start: November 28, 2024 Dr. Dl Salazar MD Referring Provider Active Start: November 28, 2024 Dr. Dl Salazar MD Emergency Provider Active Start: November 28, 2024 Dr. Isaiah Gómez DO Admit Provider Active Start: November 28, 2024 Dr. Isaiah Gómez DO Other Provider Active Start: November 28, 2024 Dr. Gray Pierce DO Attending Provider Active Start: November 28, 2024 Dr. Gray Pierce DO Other Provider Active S tart: November 28, 2024 Goals (unrecognized section and content) Goals may be documented in a n alternate sectionGoals may be documented in an alternate sectionGoals may be documented in an alternate section FOR RECORDS PERTAINING TO PATIENTS WHO ARE OR HAVE BEEN ENROLLED IN A CHEMICAL DEPENDENCY/SUBSTANCEABUSE PROGRAM, SOME INFORMATION MAY BE OMITTED. This clinical summary was aggregated from multiple sources. Caution should be exercised in using it in the provision of clinical care. This summary normalizes information from multiple sources, and as a consequence, information in this document may materially change the coding, format and clinical context of patient data. In addition, data may be omitted in some cases. CLINICAL DECISIONS SHOULD BE BASED ON THE PRIMARY CLINICAL RECORDS. [facility] [employer] [facility]. provides no warranty or guarantee of the accuracy or completeness of information in this document.
[2025-01-31 04:38] LABS: AST(SGOT) 24 U/L (<=37); Alanine Aminotransfer ALT/SGPT 20 U/L (<=46); Albumin, Serum 3.9 g/dL (3.4-4.8); Alkaline Phosphatase 93 U/L (40-129); Anion Gap 14 (5-15); BUN 14 mg/dL (4-19); BUN/Creat Ratio 16.0 RATIO (10-20); Bilirubin, Direct 0.58 mg/dL (0.00-0.30); Calcium,Total 9.7 mg/dL (7.6-11.0); Carbon Dioxide 24.8 mmol/L (21.0-32.0); Chloride 101 mmol/L (98-108); Estimated Creatinine Clearance 57.68 ml/min (50-250); Globulin 2.9 g/dL (2.2-4.2); Glucose 148 mg/dL (70-99); Magnesium 1.6 mg/dL (1.5-2.2); Potassium 3.5 mmol/L (3.3-5.1); Pro- Brain NATRIURETIC PEPTIDE 198 pg/mL (<=1800)
--- NOTE | 2025-01-31 04:44 | EDS_ITS ---
HPI History of Present Illness Chief Complaint: Alt LOC Informant: patient, EMS and SNF Narrative Narrative: Patient is an 89-year-old male with past medical history of hyperlipidemia anxiety hypertension and chronic pain. The assisted reports he became very agitated this evening and states he was telling them he was going to pack his things up and leave. Secondary to this they sent him to the hospital for evaluation. Upon arrival the patient states that the assisted is not helping with his pain or his leg swelling and therefore he was upset with them and that is why he wanted to leave the facility. He denies any recent fevers chills or trauma and states he has been taking his medications as directed [facility] Medical History Acute lumbar myofascial strain Contusion of buttock Accidental fall Debility Debility Spinal stenosis of lumbar region with radiculopathy Failure to thrive History of diabetes mellitus, type II History of seizure disorder Gout Drooping eyelid Home Medications ?Medication ?Instructions ?Recorded ?Last Taken ?Type allopurinol 300 mg tablet 300 mg PO DAILY 10/15/24 Unk nown History amitriptyline 25 mg tablet 25 mg PO DAILY 10/15/24 Unk nown History levetiracetam 500 mg tablet 500 mg PO BID 10/15/24 Unk nown History tamsulosin 0.4 mg capsule 0.4 mg PO DAILY 10/15/24 Unk nown History hydroxyzine pamoate 25 mg capsule 25 mg PO QHS PRN ins omnia #30 10/17/24 Unknown Rx CAPSULES oxymetazoline 0.05 % nasal spray 2 spray intranasal BI D PRN Nasal 10/17/24 Unknown Rx (12 Hour Nasal Relief [place]) congestion 30 days #0 mL sennosides 8.6 mg-docusate sodium 2 tab PO BID #0 tabs 10/17/24 Unknown Rx 50 mg tablet (Stimulant Laxative Plus) metoprolol tartrate 25 mg tablet 25 mg PO BID #60 tabs 11/09/24 Unknown Rx acetaminophen 325 mg tablet 650 mg (2 x 325 mg) PO Q6H PRN PRN 11/28/24 Unknown Rx Pain 1-5/10 Or Fever>100.7 #0 tabs aluminum-mag hydroxide-simethicone 30 ml PO Q6H PRN PA N Gastric 11/28/24 Unknown Rx 400 mg-400 mg-40 mg/5 mL oral susp Burning #0 mL (Mag-Al Plus Extra Strength) magnesium hydroxide 400 mg/5 mL 30 ml PO DAILY PRN PRN 11/28/24 Unknown Rx oral suspension Constipation #0 mL atorvastatin 20 mg tablet 20 mg PO DAILY 01/31/25 Unkn own History buspirone 5 mg tablet 5 mg PO BID 01/31/25 Unknown History escitalopram oxalate 5 mg tablet 5 mg PO DAILY 5 Unknown History furosemide 20 mg tablet (Lasix) 20 mg PO QDAY 01/31/25 Unknown History oxycodone myristate 18 mg capsule 18 mg PO BID 5 Unknown History sprinkle extended release 12hr(DON'T CRUSH) (Xtampza ER) Allergy/AdvReac Type Severity Reaction Status Date / Time Penicillins Allergy Mild Hives Verified 01/31/25 03:27 hydromorphone (From Dilaudid) Allergy Hallucinati Verified 01/31/25 03:27 ons ketorolac (From Toradol) Allergy Itching Verified 01/31/25 03:27 Family History Father Tuberculosis Surgical History History of back surgery Hx of laminectomy Social History household members: spouse housing: house Smoking Status: Never smoker Smokeless tobacco user: chewing tobacco alcohol intake: never what type of physical activity do you participate in: none do you feel safe at home: Yes ROS ROS ED Constitutional Constitutional ED: Denies chills or fever(s) Eyes Eyes: Denies change in vision ENT ENT ED: Denies sore throat Cardiovascular Cardiovascular: Denies chest pain Respiratory/Chest Respiratory/Chest: Denies cough or dyspnea Gastrointestinal Gastrointestinal: Denies abdominal pain, diarrhea, nausea or vomiting Genitourinary Genitourinary ED: Denies dysuria Musculoskeletal Musculoskeletal: Reports other Details: Positive left shoulder pain and bilateral wrist pain which is chronic in nature Positive leg swelling Integumentary Denies rash Neurologic Neurologic: Denies headache(s) Hematologic/Lymphatic Hematologic/Lymphatic: Denies easy bleeding or easy bruising EXAM Physical Exam Const Vital Signs: 01/31/25 03:27 Temperature 97.7 F L Temperature Source Oral Pulse Rate 86 Respiratory Rate 18 Blood Pressure 152/97 H Blood Pressure Mean 115 Pulse Ox 98 Oxygen Delivery Method Room Air Positive well nourished and well developed General Appearance ED: well developed HEENT HEENT Narrative: Normocephalic atraumatic No tongue or cheek biting noted to suggest seizure activity Eyes PERRL and EOMs intact bilaterally General Eye ED: Negative for scleral icterus Neck supple and no JVD Neck Narrative: No nuchal rigidity or meningeal signs Resp normal respiratory effort and clear to auscultation bilaterally Resp Narrative: Breath sounds are diminished throughout but overall clear to auscultation without signs of respiratory distress Cardio regular rate and regular rhythm GI non-tender, non-distended and no masses GI Narrative: Abdomen is soft nontender and nondistended with hypoactive bowel sounds No voluntary guarding or rigidity or pulsatile mass Auscultation: hypoactive bowel sounds Palpation: soft Back/Spine no CVA tenderness Extremity Extremity Narrative: There is +1-2 pitting edema to the bilateral lower extremities that is equal and Negative Homans' sign bilaterally Neuro oriented x3, CN's II-XII intact bilaterally and no sensory deficits noted Neuro Narrative: GCS 15 Cranial nerves II through XII are grossly intact without focal neurologic deficit Patient is hard of hearing but answers questions appropriately and is awake and alert to person place and time Sensorium / Orientation: alert Psych Psych Narrative: Patient has a depressed/agitated affect Skin no rashes or lesions noted and no wounds Skin Narrative: No overlying soft tissue skin changes to suggest trauma or infection MDM MDM MDM Narrative Medical decision making narrative: Nursing reported that the patient was agitated and stating he was going to pack his things and leave and they were concerned there was hallucinations. However upon arrival to the ER he is awake and alert and oriented person place and time and answering questions appropriate. He simply states that he was upset with them as he feels they are not caring for him. His main concern this evening was his leg swelling. He does state that he has had venous duplex previously that revealed no clot. He states he is unsure why his legs continue to swell and that is why he wanted to be evaluated. By physical exam there is no signs of cellulitis or abscess or gout. There is peripheral edema which could be due to third spacing or liver disease or CHF. Therefore basic labs were obtained which show a normal proBNP going against CHF and normal protein and albumin levels going against third spacing and liver enzymes are overall normal for his age going against cirrhosis or ascites. Therefore at this time patient is awake alert and oriented to person place and time he is calm and cooperative in the ER and his workup reveals no signs of infection or volume overload and therefore there is no need for further evaluation and he is otherwise safe for discharge History & Record Review Discussion w/independent historian: EMS personnel and Patient Lab Data Attestation: I reviewed the patient's lab results. Labs: Laboratory Results - last 24 hr 01/31/25 03:47 WBC 8.6 RBC 4.42 L Hgb 13.2 Hct 40.0 MCV 90.5 MCH 29.9 MCHC 33.0 RDW Std Deviation 47.9 H RDW Coeff of May 14.6 Plt Count 222 MPV 10.1 Immature Gran % (Auto) 0.200 Neut % (Auto) 62.0 Lymph % (Auto) 28.7 Pender % (Auto) 6.2 Eos % (Auto) 2.2 Baso % (Auto) 0.7 Absolute Neuts (auto) 5.3 Absolute Lymphs (auto) 2.45 Nucleated RBC % 0 Sodium 139 Potassium 3.5 Chloride 101 Carbon Dioxide 24.8 Anion Gap 14 BUN 14 Creatinine 0.84 Estim Creat Clear Calc 57.68 Est GFR (MDRD) Non-Af 83 BUN/Creatinine Ratio 16.0 Glucose 148 H Calcium 9.7 Magnesium 1.6 Total Bilirubin 1.45 H Direct Bilirubin 0.58 H AST 24 ALT 20 Alkaline Phosphatase 93 NT pro BNP II 198 Total Protein 6.8 Albumin 3.9 Globulin 2.9 Discharge Plan Triage Chief Complaint: Alt LOC ED Provider: Kendall Lucero Dx/Rx/DC Orders Clinical Impression: Peripheral edema, Hypertension, Chronic pain, Hyperlipidemia Instructions: ED Peripheral Edema, Bilateral, ED Lymphedema Prescriptions: No Action levetiracetam 500 mg tablet 500 mg PO BID amitriptyline 25 mg tablet 25 mg PO DAILY tamsulosin 0.4 mg capsule 0.4 mg PO DAILY allopurinol 300 mg tablet 300 mg PO DAILY sennosides-docusate sodium [Stimulant Laxative Plus] 8.6-50 mg Tablet 2 tab PO BID Qty: 0 0RF hydroxyzine pamoate 25 mg capsule 25 mg PO QHS PRN (Reason: insomnia) Qty: 30 0RF oxymetazoline [12 Hour Nasal Relief [place]] 0.05 % spray,non-aerosol 2 spray intranasal BID PRN (Reason: Nasal congestion) 30 Days Qty: 0 0RF metoprolol tartrate 25 mg Tablet 25 mg PO BID Qty: 60 0RF buspirone 5 mg tablet 5 mg PO BID atorvastatin 20 mg tablet 20 mg PO DAILY furosemide [Lasix] 20 mg tablet 20 mg PO QDAY escitalopram oxalate 5 mg tablet 5 mg PO DAILY Xtampza ER 18 mg cap,sprinkl,ER12hr(DONT CRUSH) 18 mg PO BID Rx Instructions: must administer with a meal/food acetaminophen 325 mg Tablet 650 mg PO Q6H PRN PRN (Reason: Pain 1-5/10 Or Fever>100.7) Qty: 0 0RF magnesium hydroxide 400 mg/5 mL Suspension 30 ml PO DAILY PRN PRN (Reason: Constipation) Qty: 0 0RF alum-mag hydroxide-simeth [Mag-Al Plus Extra Strength] 400-400-40 mg/5 mL Suspension 30 ml PO Q6H PRN PRN (Reason: Gastric Burning) Qty: 0 0RF Primary Care Provider: Jesus Quick Referrals: Jesus Quick MD [Primary Care Provider] - Activity Restrictions/Additional Instructions: Your workup today does not show any sign of congestive heart failure infection liver damage or third spacing to be the cause of your recurrent leg swelling. It is most likely due to underlying lymphedema and therefore you will need to wear compression stockings and keep your feet elevated to help reduce swelling. Please continue all of your home medications as directed by your doctor and return to the ER should you have any further concerns Print Language: Wallisian Disposition Disposition: Home, Self Care
[2025-01-31 04:57] VITALS: BP 149/75; PULSE 85; RESP 18; TEMP 36.6; O2SAT 93
[2025-01-31 05:00] VITALS: PULSE 85; RESP 16; O2SAT 95
--- NOTE | 2025-01-31 05:32 | ED.RN ---
Pt agitated about going back to the long term and refusing to go. Dr. Lucero and this RN explained that pt lives at the long term and can not stay in the ER. Pt yelling at staff and squad crew. Per Dr. Lucero 10mg IM Geodon x1 and pt is ok for discharge. [facility] updated.
[2025-01-31] MEDS: Ziprasidone IM 20 MG/ML VIAL 10 MG IM (05:45)
== END 2025-01-31 05:50 | disposition home or self-care (01) ==
PROVIDERS: Emergency Provider Emergency Medicine; PCP Family Medicine; Visit Provider Emergency Medicine
DX: R60.9 Edema, unspecified (principal); E11.9 Type 2 diabetes mellitus without complications; G89.29 Other chronic pain; E78.5 Hyperlipidemia, unspecified; I10 Essential (primary) hypertension; M10.9 Gout, unspecified; Z79.899 Other long term (current) drug therapy; F41.9 Anxiety disorder, unspecified; F17.220 Nicotine dependence, chewing tobacco, uncomplicated
CPT/HCPCS: 80048; 80076; 83735; 83880; 85025; A4216; J3486